=== PATIENT | female | born 1940 | race Caucasian/White ===

== ENCOUNTER 2017-05-07 13:15 | Inpatient (IN) | payer MEDICARE, BC ==
[2017-05-07] VITALS (14 sets, daily range): BP systolic 140–141; BP diastolic 66–78; PULSE 47–52; RESP 13–22; TEMP 98.1
[~2017-05-07] VITALS: Ht 152.4 cm; Wt 105.0 kg
[~2017-05-07 13:15] MED LIST: HYDR-3025 PO; LEVOTHYROXINE PO; NAPR-685 PO; VITAMIN B12; VITAMIN D3
[2017-05-07] MEDS ORDERED: ONDANSETRON 4 MG INJ IV STA (13:24)
[2017-05-07 13:30] LABS: ABNORMAL IP MESSAGE 1; BASOPHILS % 0.2 % (0.0-2.0); HEMATOCRIT 33.7 % (37.0-47.0); HEMOGLOBIN 10.4 g/dl (12.0-16.0); LYMPHOCYTES # 0.5 10^3/ul (0.8-2.9); LYMPHOCYTES % 4.6 % (15.0-51.0); MEAN CORPUSCULAR HGB CONC 30.9 g/dl (32.0-37.0); MEAN CORPUSCULAR VOLUME 90.6 fl (82.0-101.0); MEAN PLATELET VOLUME 12.5 fl (7.4-10.4); MONOCYTE # 0.6 10^3/ul (0.3-0.9); MONOCYTES % 5.4 % (0.0-11.0); NEUTROPHIL # 9.3 10^3/ul (1.6-7.5); NEUTROPHILS % 89.3 % (39.0-77.0); NUCLEATED RED BLOOD CELLS # 0.1 10^3/ul (0.0-0.0); NUCLEATED RED BLOOD CELLS% 0.5 /100WBC (0.0-0.0); PLATELET COUNT 100 10^3/UL (140-415); RED BLOOD COUNT 3.72 10^6/ul (4.20-5.40); RED CELL DISTRIBUTION WIDTH 16.7 % (11.5-14.5); WHITE BLOOD COUNT 10.4 10^3/ul (4.8-10.8)
[2017-05-07 13:32] LABS: POSITIVE DIFF @See below
[2017-05-07] MEDS ORDERED: CARB1TAB42 PO (13:39)
[2017-05-07] MEDS ORDERED: PRAM0.5T PO (13:40)
[2017-05-07] MEDS ORDERED: ACET-141 PO (13:41)
[2017-05-07 13:42] LABS: ANION GAP 13 (8-16); BLOOD UREA NITROGEN 81 mg/dl (7-20); CALCIUM 8.7 mg/dl (8.4-10.2); CARBON DIOXIDE 20 mmol/L (21-31); CHLORIDE 108 mmol/L (97-110); CREATININE 1.47 mg/dl (0.44-1.00); GLUCOSE 123 mg/dl (70-220); SODIUM 135 mmol/L (135-144)
[2017-05-07] MEDS ORDERED: FURO40TA4 PO (13:42)
[2017-05-07] MEDS ORDERED: HYDR-906 PO (13:42)
--- NOTE | 2017-05-07 13:42 | RADRPT ---
PROCEDURE: CT Brain without contrast. CLINICAL INDICATION: Neurologic deficit TECHNIQUE: A CT of the brain was performed on multidetector high-resolution CT scanner utilizing a xial sections from the skull base through the vertex without contrast. One or more of the following dose reduction techniques were used: Automated exposure control, Adjustment of the mA and/or kV acc ording to patient size, and/or use of iterative reconstruction technique. DOSE: CTDI = 45 mGy and the DLP = 720 mGy-cm. COMPARISON: Head CT 01/12/2014 FINDINGS: Severe motion degraded exam. No large acute intracranial hemorrhage or midline shift. The ventricles are normal in size for age. Vascular calcifications. Hyperdensity at anterior third v entricle is unchanged from prior. No significant opacification of the visualized paranasal sinuses or mastoids. IMPRESSION: Severe motion degraded exam. No large acute intracranial hemorrhage or midline shift. Vascular calcifications. Consider repeat imaging when the patient is more stable. RPTAT: AA .Martín Singh MD, MD Date Time Electronically viewed and signed by .Martín Singh MD, on 05/07/2017 13:42 .T/
[2017-05-07] MEDS ORDERED: POTA20TA96 PO (13:43)
--- NOTE | 2017-05-07 13:43 | RADRPT ---
PROCEDURE: XR Chest. CLINICAL INDICATION: Dyspnea . Possible stroke TECHNIQUE: Single frontal chest x-ray. COMPARISON: 01/12/2014 FINDINGS: There is elevation of the right hemidiaphragm with mild right basilar atelectasis. Remainder of the lungs are clear. . Cardiomediastinal silhouette is stable.. Right-sided rotation artifact limits ev aluation.. The osseous structures are intact. IMPRESSION: No acute cardiopulmonary disease. Elevated right hemidiaphragm with right basilar atelectasis. RPTAT: KK .Brain Zelaya MD, MD Date Time Electronically viewed and signed by .Brain Zelaya MD, MD on 05/07/2017 13:43 .L/
[2017-05-07] MEDS ORDERED: MYL80 PO (13:44)
[2017-05-07] MEDS ORDERED: ALBU18HF INHALATION (13:48)
[2017-05-07] MEDS ORDERED: LEVO137T3 PO (13:48)
[2017-05-07] MEDS: DOPamine-D5W 1.6 MG/ML 250 ML IV SCH (13:49)
[2017-05-07 13:50] LABS: POTASSIUM 6.2 mmol/L (3.5-5.1)
[2017-05-07] MEDS ORDERED: METO5TAB65 PO (13:53)
[2017-05-07] MEDS ORDERED: DICL100G37 TOP (13:53)
[2017-05-07 13:55] LABS: B-TYPE NATRIURETIC PEPTIDE 881 PG/ML (0-450)
[2017-05-07 13:57] LABS: TROPONIN-I < 0.012 ng/ml (0.00-0.12)
[2017-05-07] MEDS ORDERED: FUROSEMIDE 40 MG INJ IV ONE (15:00)
[2017-05-07 15:26] LABS: AADO2 Arterial 55.4 mmHg (7.0-24.0); Allen Test ACCEPTAB; Arterial Base Excess -6.5 mmol/L (-3.0-3); Arterial COHb 0.7 % (0.0-3.0); Arterial Fraction of Oxyhgb 95.8 % (93.0-99.0); Arterial HCO3 21.7 mmol/L (22.0-26.0); Arterial MetHb 0 % (0.0-1.5); Arterial Total Hemglobin 14.3 g/dl (12.0-18.0); MODE NASAL CANNULA
[2017-05-07] MEDS ORDERED: ASPIRIN 81 MG TAB PO ONE (15:30)
[2017-05-07 16:36] LABS: ADD UMIC NO; UR AMORPHOUS CRYSTAL MODERATE /HPF (NONE SEEN); UR ASCORBIC ACID NEGATIVE (NEGATIVE); UR BILIRUBIN (Dip) NEGATIVE (NEGATIVE); UR BLOOD (Dip) NEGATIVE (NEGATIVE); UR CLARITY SLIGHTLY CLOUDY (CLEAR); UR COLOR STRAW (YELLOW); UR GLUCOSE (Dip) NEGATIVE (NEGATIVE); UR KETONES (Dip) NEGATIVE (NEGATIVE); UR LEUKOCYTE ESTERASE (Dip) NEGATIVE Leu/ul (NEGATIVE); UR NITRITE (Dip) NEGATIVE (NEGATIVE); UR RBC 0 /HPF (0-5); UR SPECIFIC GRAVITY (Dip) 1.005 (1.003-1.030); UR SQUAMOUS EPITHELIAL CELL FEW /HPF (FEW); UR TOTAL PROTEIN (Dip) NEGATIVE (NEGATIVE); UR UROBILINOGEN (Dip) NEGATIVE (NEGATIVE)
[2017-05-07] MEDS ORDERED: morphine 10 MG INJ IM ONE (17:00)
[2017-05-07] MEDS: DEXTROSE 5%-0.45% NACL 1,000 ML IV SCH (17:26)
[2017-05-07] MEDS ORDERED: IPRATROPIUM (NEB) 0.5 MG/2.5 ML AMP NEB PRN (17:30)
[2017-05-07] MEDS ORDERED: ACETAMINOPHEN 650 MG SUPP PR PRN (17:30)
[2017-05-07] MEDS ORDERED: ONDANSETRON 4 MG INJ IV PRN (17:30)
[2017-05-07] MEDS ORDERED: NACL 0.9% 3 ML SYG IV SCH (17:30)
[2017-05-07] MEDS ORDERED: INSULIN REGULAR, HUMAN 100 UNIT/1 ML 3ML VIAL IV STA (17:34)
[2017-05-07] MEDS ORDERED: ALBUTEROL 0.5% (NEB) 2.5 MG/0.5 ML AMP INH STA (17:34)
--- NOTE | 2017-05-07 17:39 | CONS ---
Date/Time of Note Date/Time of Note DATE: 05/07/17 TIME: 17:38 Assessment/Plan Assessment/Plan Additional Assessment/Plan ASSESSMENT: 1. Severe symptomatic bradycardia 2. GUY on possible CKD due to Prerenal azotemia 3. Possible CKD 4. Acute hyperkalemia due to GUY 5.AMs due to acute metabolic encephalopathy and bradycardia 6. H.o CHF 7. H/o HTN 8. h/o hypothyroidism 9/ H/o parkinsonism Plan: pt received lasix IV in ED, pt can not take PO now so I will give insulin + Dextrose and Breathing Treatment with albuterol for treatment for hyperkalemia Urine studies including Urine sodium, Prot/cr ration, urine eosinophils, Urine uric acid CK total, Uric acid has been ordered with AM labs Renal Us has been ordered for CKD and to rule out hydronephrosis IV abx Vancomycin and levaquin, renally dose all abx pt is admitted to ICU with dopamine gtt, Cardiology consult and ECHO has been ordered Thanks for consultation,we will continue to follow up . Consultation Date/Type/Reason Admit Date/Time May Date of Consultation: May 07, 2017 Type of Consultation: NEPHROLOGY Reason for Consultation acute Hyperkalemia, acute Kidney injury Referring Provider: OSMANI PARK MD Hx of Present Illness 77 F with PMhx of parkinsonism, HTN who was lotus in by ambulance for decresed level of consciousness and Aphasia. pt is noted to have hyperkalemia with K 6.2, BUN 82 Cr 1.4 and renal has been consulted for GUY, Hyperkalemia. pt is getting admitted for work up of AMS, stroke. Subjective hx not possible: pt non-verbal Past Medical History Medical History: congestive heart failure, high cholesterol, hypertension, hypothyroid, other (COPD. arthritis ) Past Surgical History Past Surgical Hx: other (Unknow, no family member is available ) Family History Significant Family History: other (unknown ) Social History Alcohol Use: none Smoking Status: Never smoker Drug Use: none Exam/Review of Systems Vital Signs Vitals Vital Signs Date Time Temp Pulse Resp B/P Pulse Ox O2 Delivery O2 Flow Rate FiO2 05/07/17 14:43 58 195/64 05/07/17 13:30 Nasal Cannula 3 05/07/17 13:15 98.9 15 88 Exam Constitutional: alert, other (withdraws to pain, speech garbled ) Psych: no complaints Head: normocephalic Eyes: nl conjunctiva ENMT: nl external ears & nose Neck: non-tender, supple Respiratory: clear to auscultation, diminished breath sounds, normal air movement Cardiovascular: other (bradycardia ), regular rate and rhythm Gastrointestinal: non-tender, soft Musculoskeletal: muscle weakness, nl extremities to inspection, swelling Neurological: other (awake, but speech garbled, not oriented to place and person , gait not assessed ) Results Result Diagram: 05/07/17 1315 05/07/17 1315 Results 24 hrs Laboratory Tests Test 05/07/17 13:15 05/07/17 14:32 05/07/17 15:52 White Blood Count 10.4 Red Blood Count 3.72 L Hemoglobin 10.4 L Hematocrit 33.7 L Mean Corpuscular Volume 90.6 Mean Corpuscular Hemoglobin 28.0 L Mean Corpuscular Hemoglobin Concent 30.9 L Red Cell Distribution Width 16.7 H Platelet Count 100 L Mean Platelet Volume 12.5 H Neutrophils % 89.3 H Lymphocytes % 4.6 L Monocytes % 5.4 Eosinophils % 0.0 Basophils % 0.2 Nucleated Red Blood Cells % 0.5 H Neutrophils # 9.3 H Lymphocytes # 0.5 L Monocytes # 0.6 Eosinophils # 0.0 Basophils # 0.0 Nucleated Red Blood Cells # 0.1 H Sodium Level 135 Potassium Level 6.2 *H Chloride Level 108 Carbon Dioxide Level 20 L Anion Gap 13 Blood Urea Nitrogen 81 H Creatinine 1.47 H Glucose Level 123 Calcium Level 8.7 Troponin I < 0.012 B-Type Natriuretic Peptide 881 H Blood Gas Specimen Source Blood arterial Arterial Blood Date Drawn 05/07/2017 3:05:07 PM Arterial Blood pH (Temp corrected) 7.223 *L Arterial Blood pCO2 (Temp correct) 53.8 H Arterial Blood pO2 (Temp corrected) 95.3 H Arterial Blood HCO3 21.7 L Arterial Blood Base Excess -6.5 L Arterial Blood Oxygen Saturation 96.5 Jewel Test ACCEPTAB Arterial Blood Gas Puncture Site Right Radial Arterial Blood Carboxyhemoglobin 0.7 Arterial Blood Methemoglobin 0 Blood Gas A-a O2 Differential 55.4 H Oxyhemoglobin Percent 95.8 Total Hemoglobin 14.3 Blood Gas Temperature 37.0 Blood Gas Modality NASAL CANNULA FiO2 30.0 Blood Gas Critical Value Read Back DR PRAVEEN Carter Blood Gas Notified Whom JLD Blood Gas Notified Time 05/07/2017 3:25:52 PM Urine Color STRAW Urine Clarity SLIGHTLY CLOUDY A Urine pH 5.0 Urine Specific [place] 1.005 Urine Ketones NEGATIVE Urine Nitrite NEGATIVE Urine Bilirubin NEGATIVE Urine Urobilinogen NEGATIVE Urine Leukocyte Esterase NEGATIVE Urine Microscopic RBC 0 Urine Microscopic WBC 0 Urine Squamous Epithelial Cells FEW Urine Amorphous Crystals MODERATE Urine Hemoglobin NEGATIVE Urine Glucose NEGATIVE Urine Total Protein NEGATIVE Medications Medications Current Medications Dopamine HCl/ Dextrose 250 ml @ 0 mls/hr TITRATE IV Last administered on t 13:49; Admin Dose 16.87 MLS/HR; Start 05/07/17 at 13:30 Dextrose/Sodium Chloride (D5-1/2ns) 1,000 ml @ 70 mls/hr [id number] IV ; Start at 17:26; Status UNV Ondansetron HCl (Zofran Inj) 4 mg Q6H PRN IV NAUSEA AND/OR VOMITING; Start 05/07/17 at 17:30; Status UNV Acetaminophen (Tylenol Supp) 650 mg Q4H PRN [place] PAIN LEVEL 1-3 OR FEVER; Start 05/07/17 at 17:30; Status UNV Morphine Sulfate (morphine) 2 mg Q4H PRN IV PAIN LEVEL 7-10; Start 05/07/17 at 17:30; Status UNV Pantoprazole (Protonix Iv) 40 mg DAILY@06 IV ; Start 05/08/17 at 06:00; Status UNV Enoxaparin Sodium 30 mg 30 mg DAILY SC ; Start 05/08/17 at 09:00; Status UNV Levofloxacin/ Dextrose (Levaquin 500mg/ D5W 100 ml (Pmx)) 100 ml @ 100 mls/hr Q48H IVPB ; Start 05/07/17 at 18:00; Status UNV ENRIQUETA HUNG MD May 07, 2017 17:39
[2017-05-07] MEDS ORDERED: VANCOMYCIN 1.75 GM in NS 500 ML IVPB SCH ×2 (18:00→21:30)
[2017-05-07] MEDS ORDERED: LEVOFLOXACIN 500MG/D5W (PMX) 100 ML IVPB SCH (18:00)
[2017-05-07] MEDS ORDERED: VANCOMYCIN IV PER PHARMACY XX SCH (18:00)
[2017-05-07] MEDS: DEXTROSE 50% 50 ML SYRINGE IV PRN ×2 (19:35→21:56)
--- NOTE | 2017-05-07 19:38 | ERA ---
ER Documentation Chief Complaint Date/Time DATE: 05/07/17 TIME: 19:28 Chief Complaint stoke like symptoms with hr in the 20's, bilateral weepy lower extremities HPI This 77-year-old female was brought in for having episodes of decreased level of consciousness since last night with a heart rate in the 20s. She is brought in by ambulance with Dr. Bonilla is also here at the same time the patient is being brought in. This is her physician states the symptoms started last night and was stroke is in the differential it is less likely than her bradycardia for causing this. She has a history of diastolic heart failure with cardiomyopathy. She is not currently taking any AV edgar blockers. Patient herself has been wheelchair-bound and complains of only leg pain. She also has had some generalized weakness on and off. ROS All systems reviewed and are negative except as per history of present illness. Medications Home Meds Reported Medications Metolazone* (Metolazone*) 5 Mg Tablet, 5 MG PO DAILY, TAB 05/07/17 Diclofenac Sodium* (Voltaren* Gel) 1% -100 Gm Gel, 2 GM TOP TID, #1 TUB 05/07/17 Albuterol Sulfate* (Ventolin HFA*) 18 Gm Hfa.aer.ad, 2 PUFF INHALATION Q6H Y for WHEEZING AND SOB, #1 INHALER 05/07/17 Levothyroxine Sodium* (Levothyroxine Sodium*) 137 Mcg Tablet, 137 MCG PO BEFORE BREAKFAST, #30 TAB 05/07/17 Simethicone* (Mylicon*) 80 Mg Tab, 80 MG PO Q4 Y for DISTENSION/GAS/BLOATING, TAB 05/07/17 Potassium Chloride* (Potassium Chloride*) 20 Meq Tablet.er, 20 MEQ PO DAILY, TAB.SA 05/07/17 Furosemide* (Furosemide*) 40 Mg Tablet, 40 MG PO DAILY, TAB 05/07/17 Hydrocodone/Acetaminophen ([place] 5-325 Tablet) 1 Each Tablet, 1 EACH PO Q6 Y for SEVERE PAIN LEVEL 7-10, TAB 05/07/17 Acetaminophen* (Acetaminophen*) 500 MG Extra Strength Tablet, 1000 MG PO Q4 Y for PAIN, TAB 05/07/17 Pramipexole* (Pramipexole*) 0.5 Mg Tablet, 0.5 MG PO TID, TAB 05/07/17 Carbidopa/Levodopa (Carbidopa-Levo ER 25-100 Tab) 1 Each Tablet.er, 1 EACH PO TID, TAB 05/07/17 Discontinued Reported Medications [Vitamin B12] No Conflict Check 01/12/14 [Vitamin D3] No Conflict Check 01/12/14 Naproxen* (Naproxen*) 375 Mg Tablet, 375 MG PO BID 01/12/14 [Levothyroxine] No Conflict Check, 37 MCG PO AM 01/12/14 Hydrocodone Bit-Acetaminophen* (Vicodin* ES) 7.5-300 Mg Tablet, 1 EACH PO BID 01/12/14 Allergies Allergies: Coded Allergies: No Known Allergy (Unverified , 01/15/14) PMhx/Soc History of Surgery: No (UNKNOWN) Anesthesia Reaction: No Hx Neurological Disorder: No Hx Respiratory Disorders: Yes (COPD) Hx Cardiac Disorders: Yes (DYSLIPIDEMIA, CHF) Hx Psychiatric Problems: No Hx Miscellaneous Medical Probl: Yes (HYPOTHYROID, CHRONIC PAIN) Hx Alcohol Use: No Hx Substance Use: No Hx Tobacco Use: No Smoking Status: Never smoker Physical Exam Vitals Vital Signs Date Time Temp Pulse Resp B/P Pulse Ox O2 Delivery O2 Flow Rate FiO2 05/07/17 19:04 98.1 50 20 161/66 98 Nasal Cannula 2.0 05/07/17 17:30 49 101/64 05/07/17 16:30 55 169/75 05/07/17 14:43 58 195/64 05/07/17 14:10 58 98/53 05/07/17 13:30 Nasal Cannula 3 05/07/17 13:15 98.9 27 15 115/75 88 Physical Exam Const: [] Moderate distress Head: Atraumatic Eyes: Normal Conjunctiva, EOMI, PERRLA ENT: Normal External Ears, Nose and Mouth. Neck: Full range of motion..~Severe JVD bilateral Resp: Decreased bibasilar breath sounds Cardio: Gettler bradycardia, no murmur auscultated Abd: Soft, non tender, non distended. Normal bowel sounds Skin: No petechiae or rashes, erythema of bilateral lower extremities without calor. Back: No midline or flank tenderness Ext: No cyanosis, market bilateral lower extremity edema, 3+ pitting, distal pulses are intact posterior tibial with good capillary refill. Neur: Awake and alert and oriented 3, no focal deficits Psych: Normal Mood and Affect Result Diagram: 05/07/17 1315 05/07/17 1315 Results 24 hrs Laboratory Tests Test 05/07/17 13:15 05/07/17 14:32 05/07/17 15:52 White Blood Count 10.410^3/ul Red Blood Count 3.7210^6/ul Hemoglobin 10.4g/dl Hematocrit 33.7% Mean Corpuscular Volume 90.6fl Mean Corpuscular Hemoglobin 28.0pg Mean Corpuscular Hemoglobin Concent 30.9g/dl Red Cell Distribution Width 16.7% Platelet Count 07434^3/UL Mean Platelet Volume 12.5fl Neutrophils % 89.3% Lymphocytes % 4.6% Monocytes % 5.4% Eosinophils % 0.0% Basophils % 0.2% Nucleated Red Blood Cells % 0.5/100WBC Neutrophils # 9.310^3/ul Lymphocytes # 0.510^3/ul Monocytes # 0.610^3/ul Eosinophils # 0.010^3/ul Basophils # 0.010^3/ul Nucleated Red Blood Cells # 0.110^3/ul Sodium Level 135mmol/L Potassium Level 6.2mmol/L Chloride Level 108mmol/L Carbon Dioxide Level 20mmol/L Anion Gap 13 Blood Urea Nitrogen 81mg/dl Creatinine 1.47mg/dl Glucose Level 123mg/dl Calcium Level 8.7mg/dl Troponin I < 0.012ng/ml B-Type Natriuretic Peptide 881PG/ML Blood Gas Specimen Source Blood arterial Arterial Blood Date Drawn 05/07/2017 3:05:07 PM Arterial Blood pH (Temp corrected) 7.223 Arterial Blood pCO2 (Temp correct) 53.8mmhg Arterial Blood pO2 (Temp corrected) 95.3mmHG Arterial Blood HCO3 21.7mmol/L Arterial Blood Base Excess -6.5mmol/L Arterial Blood Oxygen Saturation 96.5mmHG Jewel Test ACCEPTAB Arterial Blood Gas Puncture Site Right Radial Arterial Blood Carboxyhemoglobin 0.7% Arterial Blood Methemoglobin 0% Blood Gas A-a O2 Differential 55.4mmHg Oxyhemoglobin Percent 95.8% Total Hemoglobin 14.3g/dl Blood Gas Temperature 37.0C Blood Gas Modality NASAL CANNULA FiO2 30.0% Blood Gas Critical Value Read Back DR PRAVEEN Carter Blood Gas Notified Whom JLD Blood Gas Notified Time 05/07/2017 3:25:52 PM Urine Color STRAW Urine Clarity SLIGHTLY CLOUDY Urine pH 5.0 Urine Specific [place] 1.005 Urine Ketones NEGATIVEmg/dL Urine Nitrite NEGATIVEmg/dL Urine Bilirubin NEGATIVEmg/dL Urine Urobilinogen NEGATIVEmg/dL Urine Leukocyte Esterase NEGATIVELeu/ul Urine Microscopic RBC 0/HPF Urine Microscopic WBC 0/HPF Urine Squamous Epithelial Cells FEW/HPF Urine Amorphous Crystals MODERATE/HPF Urine Hemoglobin NEGATIVEmg/dL Urine Glucose NEGATIVEmg/dL Urine Total Protein NEGATIVEmg/dl Phosphorus Level 6.6mg/dl Current Medications Medications (Trade) Dose Ordered Sig/Benjamin Route PRN Reason Start Time Stop Time Status Last Admin Dose Admin Dopamine HCl/ Dextrose 250 ml @ 0 mls/hr TITRATE IV 05/07/17 13:30 05/07/17 13:49 Ondansetron HCl (Zofran Inj) 4 mg ONCE STAT IV 05/07/17 13:24 05/07/17 13:25 DC 05/07/17 13:49 Furosemide (Lasix) 40 mg ONCE ONCE IV 05/07/17 15:00 05/07/17 15:01 DC 05/07/17 14:57 Aspirin (Aspirin) 324 mg ONCE ONCE PO 05/07/17 15:30 05/07/17 15:31 DC Morphine Sulfate 4 mg 4 mg ONCE ONCE IM 05/07/17 17:00 05/07/17 17:01 DC Dextrose/Sodium Chloride (D5-1/2ns) 1,000 ml @ 70 mls/hr [id number] IV 05/07/17 17:26 IV Flush (NS 3 ml) 3 ml PER PROTOCOL IV 05/07/17 17:30 Ondansetron HCl (Zofran Inj) 4 mg Q6H PRN IV NAUSEA AND/OR VOMITING 05/07/17 17:30 Albuterol (Proventil 0.083% (Neb)) 2.5 mg Q2H RESP THERAPY PRN NEB SHORTNESS OF BREATH 05/07/17 17:30 Ipratropium [place] (Atrovent 0.02% (Neb)) 0.5 mg Q2H RESP THERAPY PRN NEB SHORTNESS OF BREATH 05/07/17 17:30 Acetaminophen (Tylenol Supp) 650 mg Q4H PRN [place] PAIN LEVEL 1-3 OR FEVER 05/07/17 17:30 Morphine Sulfate (morphine) 2 mg Q4H PRN IV PAIN LEVEL 7-10 05/07/17 17:30 Pantoprazole (Protonix Iv) 40 mg DAILY@06 IV 05/08/17 06:00 Enoxaparin Sodium (Lovenox) 30 mg DAILY SC 05/08/17 09:00 Vancomycin HCl VANCOMYCIN PER PHARMACY PER PROTOCOL XX 05/07/17 18:00 Levofloxacin/ Dextrose (Levaquin 500mg/ D5W 100 ml (Pmx)) 100 ml @ 100 mls/hr Q48H IVPB 05/07/17 18:00 Albuterol (Proventil 0.5% (Neb)) 15 mg ONCE STAT INH 05/07/17 17:34 05/07/17 17:49 DC Insulin Human Regular (Humulin R) 10 unit ONCE STAT IV 05/07/17 17:34 05/07/17 17:50 DC Dextrose ONCE PRN IV POC BLOOD GLUCOSE <250 MG/DL 05/07/17 18:00 05/08/17 17:59 Vancomycin HCl/ Sodium Chloride (Vancocin/NS) 500 ml @ 125 mls/hr NOW IVPB 05/07/17 18:00 05/07/17 23:59 Procedures/MDM Severe symptomatic bradycardia and 69-year-old female. Although stroke is not completely ruled out CT is negative and patient was given 3 and 25 mg of aspirin. Her condition is likely caused from decreased cardiac output from extremely slow heart rate. She was placed immediately on a dopamine drip. Her leg pain she was given 4 mg of morphine. I also gave her 4 mg of Zofran. She has thrombocytopenia very high BUN. I gave her 40 mg of Lasix to lower her potassium. The reason for her hyperkalemia is that she takes potassium tablets. These should be discontinued. She will be admitted to the ICU and possible placement of pacemaker will occur. She is being admitted to Dr. Bonilla who is seen her at the bedside. EKG interpretation: Severe sinus bradycardia rate of 26, no ST or T-wave changes concerning for acute ischemia, regular [place] per front desk monitor interpretation: Sinus bradycardia rate of 20s followed by sinus bradycardia rate of 50s after dopamine drip titration. No other arrhythmias Chest x-ray interpretation: I see no acute process, no infiltrate, no appointment edema, no pneumothorax, no fractures CT head interpretation: Limited by motion artifact, I see no acute hemorrhage, no mass-effect no midline shift no skull fracture. Care time greater than 35 minutes: This includes treatment of severe symptomatic bradycardia, consideration of invasive procedures, treatment of electrolyte abnormality, use of dopamine drip, multiple visits the patient's bedside to reassess status, chart review, discussion with admitting doctor patient and patient's family. This does not include any billable procedures Departure Diagnosis: Primary Impression: Severe sinus bradycardia Additional Impressions: Symptomatic bradycardia Hyperkalemia Leg pain, bilateral Thrombocytopenia Renal insufficiency Condition: Critical KERWIN MORTON DO May 07, 2017 19:38
[2017-05-07 19:40] LABS: CREATINE KINASE 77 IU/L (23-200)
[2017-05-07 19:53] LABS: CK-MB 8.69 ng/ml (0.0-2.4)
--- NOTE | 2017-05-07 20:07 | RADRPT ---
PROCEDURE: US Lower extremity Venous. CLINICAL INDICATION: Bilateral lower extremity swelling TECHNIQUE: Multiple sonographic images of the bilateral lower extremity deep venous system was obt ained utilizing grayscale, color-flow, compressive sonography and doppler imaging with augmentation. The images were reviewed on a PACS workstation. COMPARISON: None. FINDINGS: There is normal compressibility and flow within the bilateral common femoral, deep femoral, superfic ial femoral and popliteal veins. The deep veins the calf were incompletely visualized. IMPRESSION: No sonographic evidence for deep venous thrombosis in the bilateral lower extremity veins. Physician Nkechi Date Time Electronically viewed and signed by Physician Nkechi on 05/07/2017 19:13 ML/
[2017-05-07 20:10] LABS: TROPONIN-I < 0.012 ng/ml (0.00-0.12)
[2017-05-08] VITALS (72 sets, daily range): BP systolic 89–202; BP diastolic 28–162; PULSE 49–82; RESP 13–26; Ht 152.4 cm; Wt 105.0 kg
[2017-05-08 02:00] LABS: CK-MB 7.97 ng/ml (0.0-2.4); TROPONIN-I 0.012 ng/ml (0.00-0.12)
--- NOTE | 2017-05-08 04:41 | HP ---
DATE OF ADMISSION: 05/07/2017 HISTORY OF PRESENT ILLNESS: The patient is a 77-year-old female with history of Parkinson disease, COPD, arthritis, hypothyroidism and hyperlipidemia. The patient lives at home. The patient is also with decreased mobility. The patient was noted to have slurred speech, unable to express herself b y a home health nurse that saw the patient. The patient was speaking and eating without any problem s at the baseline; however, this morning, patient was noted to have aphasia and slurred speech and w as not able to speak in clear sentences and had a hard time finding of the right words. The patient was also noted to be bradycardic with heart rate being in the 20s; however, stable BP and patient's home health nurse called 911 and patient was brought for evaluation to the emergency room. In the emergency room, patient underwent a CT of the brain which revealed no large acute intracranial hemor rhage or midline shift or vascular calcification; however, this is a severely motion degraded exam. The patient underwent a chest x-ray which does not reveal any acute cardiopulmonary disease; kira de jesus, noted elevated right hemidiaphragm with right bibasilar atelectasis. The patient was given aspir in and Lasix. The patient was noted to have elevated potassium of 6.2, BUN is 81, creatinine 1.47. Urinalysis is negative for any urinary tract infection; however, patient had bilateral redness over the extremities and edema. The patient continued to have further evaluation in the emergency room, and patient will be admitted for further evaluation and management to telemetry floor. PAST MEDICAL HISTORY: Per HPI. PAST SURGICAL HISTORY: Unable to obtain due to patient's condition. FAMILY HISTORY: Noncontributory. SOCIAL HISTORY: The patient lives at home with home health care services daily. Unable to obtain o ther history. ALLERGIES: NO KNOWN ALLERGIES. HOME MEDICATIONS: Reviewed. 1. Tylenol. 2. Albuterol. 3. Carbidopa/levodopa. 4. Voltaren gel. 5. Lasix. 6. [place]. 7. Levothyroxine. 8. Metolazone. 9. Potassium chloride. 10. Pramipexole. 11. Simethicone. REVIEW OF SYSTEMS: A 12-point review of systems is negative unless mentioned in the HPI. PHYSICAL ASSESSMENT: GENERAL: A well-developed, obese female, currently is lethargic, but arousable. VITAL SIGNS: Temperature is 98.9, pulse is 58, blood pressure is 98/53, respiratory rate 15, oxygen saturation 96% on 2 liters nasal cannula. HEENT: Head is atraumatic, normocephalic. Pupils equal, round, reactive to light and accommodation . Oral mucosa is pink, dry. NECK: Supple, no cervical lymphadenopathy, no thyromegaly. LUNGS: Slightly diminished at the bases. Clear in the upper lobes. No rhonchi or wheezes noted. CARDIOVASCULAR: Normal S1, S2. The patient is slightly bradycardic. No murmurs, gallops, clicks, rubs noted. ABDOMEN: Protuberant, soft, nondistended, nontender. Bowel sounds present. EXTREMITIES: Edematous with bilateral rash and erythema. SKIN: There is no rash or petechiae noted. NEUROLOGIC: The patient is awake, alert to name, with expressive aphasia. Moves all extremities. LABORATORY DATA ON ADMISSION: CBC: White blood cells 10.4, hemoglobin 10.4, hematocrit 33.7, plate lets 100. Chemistry: Sodium is 135, potassium 6.2, chloride 108, carbon dioxide 20, anion gap 13, BUN is 81, creatinine 1.47, glucose 123. Troponin less than 0.012. Calcium 8.7. BNP is 881. ASSESSMENT AND PLAN: 1. Expressive aphasia, rule out acute stroke. We will obtain MRI of the brain. Dr. Govea was asked to see patient in neurology consultation. 2. Acute kidney injury with hyperkalemia. Will ask Dr. Cordoba to see patient in nephrology consulta tion. Continue IV fluids. Monitor electrolytes. 3. Acute respiratory insufficiency. Will continue breathing treatment and oxygen supplementation. 4. Chronic obstructive pulmonary disease. 5. History of hypothyroidism. We obtain patient's TSH and T4. Continue levothyroxine. 6. Possible bilateral lower extremity cellulitis. Will start renally dosed vancomycin and Levaquin . Dr. Stephens is to see patient in infectious disease consultation. 7. History of peripheral vascular disease with history of vascular interventions. Will continue Lo venox for deep venous thrombosis prophylaxis, also obtain bilateral venous Doppler to rule out DVT. 8. History of Parkinson disease. 9. History of osteoarthritis. 10. History of hyperlipidemia. 11. Start Pepcid for peptic ulcer disease prophylaxis. Further recommendations based on clinical course. Plan of care discussed with Dr. Park. Dictated By: ABI GARCIA ETL APPLICATION DEVELOPER for OSMANI PARK MD SR/NTS Conf#: [id number] DID#: [id number]
[2017-05-08] MEDS: DOPamine-D5W 1.6 MG/ML 250 ML IV SCH (05:05)
[2017-05-08 05:18] LABS: ABNORMAL IP MESSAGE 1; BASOPHILS % 0.3 % (0.0-2.0); HEMATOCRIT 36.5 % (37.0-47.0); LYMPHOCYTES # 0.4 10^3/ul (0.8-2.9); LYMPHOCYTES % 3.6 % (15.0-51.0); MEAN CORPUSCULAR HEMOGLOBIN 26.8 pg (29.0-33.0); MEAN CORPUSCULAR HGB CONC 30.1 g/dl (32.0-37.0); MEAN CORPUSCULAR VOLUME 88.8 fl (82.0-101.0); MEAN PLATELET VOLUME 11.9 fl (7.4-10.4); MONOCYTE # 0.5 10^3/ul (0.3-0.9); MONOCYTES % 4.4 % (0.0-11.0); NEUTROPHIL # 10.4 10^3/ul (1.6-7.5); NUCLEATED RED BLOOD CELLS # 0.1 10^3/ul (0.0-0.0); NUCLEATED RED BLOOD CELLS% 0.5 /100WBC (0.0-0.0); PLATELET COUNT 141 10^3/UL (140-415); RED BLOOD COUNT 4.11 10^6/ul (4.20-5.40); RED CELL DISTRIBUTION WIDTH 16.6 % (11.5-14.5); WHITE BLOOD COUNT 11.4 10^3/ul (4.8-10.8)
[2017-05-08 05:27] LABS: NEUTROPHILS % 90.7 % (39.0-77.0); POSITIVE DIFF @See below
[2017-05-08 05:37] LABS: ALBUMIN 3.4 g/dl (3.3-4.9); ALBUMIN/GLOBULIN RATIO 1.13; BILIRUBIN,INDIRECT 0.4 mg/dl (0-1.1); BILIRUBIN,TOTAL 0.4 mg/dl (0.2-1.3); CALCIUM 8.4 mg/dl (8.4-10.2); CREATININE 1.26 mg/dl (0.44-1.00); POTASSIUM 5.1 mmol/L (3.5-5.1); TOTAL PROTEIN 6.4 g/dl (6.1-8.1)
[2017-05-08] MEDS ORDERED: PANTOPRAZOLE 40 MG INJ IV SCH (06:00)
[2017-05-08] MEDS: DEXTROSE 5%-0.45% NACL 1,000 ML IV SCH ×2 (08:05→23:29)
--- NOTE | 2017-05-08 08:44 | RADRPT ---
PROCEDURE: Renal US. CLINICAL INDICATION: Renal dysfunction. TECHNIQUE: Multiple sonographic images of the kidneys and urinary bladder were obtained. The imag es were reviewed on a PACS workstation. COMPARISON: No prior studies are available for comparison. FINDINGS: The right kidney measures 11.4 cm. The left kidney is not well seen There is no right renal mass, hydronephrosis, or calculus. Right renal parenchymal thickness and ech ogenicity is normal. The right perirenal region is normal with no fluid collection or mass. There is a Cabrera catheter in the urinary bladder. IMPRESSION: 1. Grossly normal right kidney. 2. Left kidney not well seen. 3. Cabrera catheter in the bladder. RPTAT: QQ .Rei Holder MD, MD Date Time Electronically viewed and signed by .Rei Holder MD, on 05/08/2017 08:44 .R/
[2017-05-08] MEDS: ENOXAPARIN 30 MG/0.3 ML SYG SC SCH (09:21)
--- NOTE | 2017-05-08 09:29 | RADRPT ---
Vent Rate: 54 bpm RR Interval: 0 msec SC Interval: 174 msec QRS Duration: 112 msec QT Interval: 412 msec QTC Interval: 390 msec P-R-T [place]: 27 - 0 - 47 degrees Sinus bradycardia Incomplete right bundle branch block Borderline ECG Electronically Signed By: Mario Neumann [id number]
--- NOTE | 2017-05-08 10:52 | CONS ---
Date/Time of Note Date/Time of Note DATE: 05/08/17 TIME: 10:44 Assessment/Plan Assessment/Plan Chief Complaint/Hosp Course 77 year old female with CHF, HTN, HLD, Parkinson's, COPD, arthritis admitted with aphasia, bradycardia and hyperkalemia undergoing further w/u admitted to the ICU. Recommendations: CVA work up to include MRI Brain and MRA Head/Neck without contrast ECHO with a bubble study ASA 81 mg daily (if unable to pass swallow recommend ASA 300 mg ND at this time may switch after she has an NGT/ passed swallow) check FLP, HBA1C to optimize risk factors recommend inquiring whether patient is compliant with her Parkinson's medications at home, would recommend NGT if she fails swallow to continue administering Parkinson's medication for risk of developing Neuroleptic Malignant Syndrome nephrology following to adjust electrolytes, ID to be consulted for LE cellulitis maintain normotensive, afebrile, euglycemic DVT ppx Speech evaluation will follow Problems: Consultation Date/Type/Reason Admit Date/Time May Date of Consultation: May 08, 2017 Type of Consultation: Neurology Reason for Consultation aphasia Referring Provider: ABI GARCIA Hx of Present Illness 77 year old female with history of advanced Parkinson's disease, COPD, arthritis admitted with slurred speech and aphasia noted by [employer]. Unclear time of onset, on arrival patient was notably bradycardic 20's. CTH showed no acute process, stroke code was not initiated on her arrival. Labs significant for hyperkalemia K: 6.2 admitted to the ICU for further work up. Pending further brain imaging, she remains aphasic. Psychological: no complaints Past Medical History Medical History: congestive heart failure, high cholesterol, hypertension, hypothyroid, other (COPD. arthritis ) Past Surgical History Past Surgical Hx: other (Unknow, no family member is available ) Social History Alcohol Use: none Smoking Status: Never smoker Drug Use: none Exam/Review of Systems Vital Signs Vitals Vital Signs Date Time Temp Pulse Resp B/P Pulse Ox O2 Delivery O2 Flow Rate FiO2 05/08/17 08:00 53 05/08/17 08:00 97.4 23 91/47 94 Nasal Cannula 2.0 Intake and Output 05/07/17 05/07/17 05/08/17 15:00 23:00 07:00 Intake Total 447.48 ml 694.985 ml Output Total 800 ml 370 ml Balance -352.52 ml 324.985 ml Exam arousable awake and alert tracks examiner non-verbal, not following commands global aphasia present CN: II-XII grossly intact she blinks to threat equally b/l Motor: w/d in all extremities in the plane of the bed Coord poor cooperation Results Result Diagram: 05/08/17 0437 05/08/17 0437 Results 24 hrs Laboratory Tests Test 05/07/17 13:15 05/07/17 14:32 05/07/17 15:52 05/07/17 19:10 White Blood Count 10.4 Red Blood Count 3.72 L Hemoglobin 10.4 L Hematocrit 33.7 L Mean Corpuscular Volume 90.6 Mean Corpuscular Hemoglobin 28.0 L Mean Corpuscular Hemoglobin Concent 30.9 L Red Cell Distribution Width 16.7 H Platelet Count 100 L Mean Platelet Volume 12.5 H Neutrophils % 89.3 H Lymphocytes % 4.6 L Monocytes % 5.4 Eosinophils % 0.0 Basophils % 0.2 Nucleated Red Blood Cells % 0.5 H Neutrophils # 9.3 H Lymphocytes # 0.5 L Monocytes # 0.6 Eosinophils # 0.0 Basophils # 0.0 Nucleated Red Blood Cells # 0.1 H Sodium Level 135 Potassium Level 6.2 *H Chloride Level 108 Carbon Dioxide Level 20 L Anion Gap 13 Blood Urea Nitrogen 81 H Creatinine 1.47 H Glucose Level 123 Calcium Level 8.7 Troponin I < 0.012 < 0.012 B-Type Natriuretic Peptide 881 H Blood Gas Specimen Source Blood arterial Arterial Blood Date Drawn 05/07/2017 3:05:07 PM Arterial Blood pH (Temp corrected) 7.223 *L Arterial Blood pCO2 (Temp correct) 53.8 H Arterial Blood pO2 (Temp corrected) 95.3 H Arterial Blood HCO3 21.7 L Arterial Blood Base Excess -6.5 L Arterial Blood Oxygen Saturation 96.5 Jewel Test ACCEPTAB Arterial Blood Gas Puncture Site Right Radial Arterial Blood Carboxyhemoglobin 0.7 Arterial Blood Methemoglobin 0 Blood Gas A-a O2 Differential 55.4 H Oxyhemoglobin Percent 95.8 Total Hemoglobin 14.3 Blood Gas Temperature 37.0 Blood Gas Modality NASAL CANNULA FiO2 30.0 Blood Gas Critical Value Read Back DR PRAVEEN Carter Blood Gas Notified Whom VITA Blood Gas Notified Time 05/07/2017 3:25:52 PM Urine Color STRAW Urine Clarity SLIGHTLY CLOUDY A Urine pH 5.0 Urine Specific [place] 1.005 Urine Ketones NEGATIVE Urine Nitrite NEGATIVE Urine Bilirubin NEGATIVE Urine Urobilinogen NEGATIVE Urine Leukocyte Esterase NEGATIVE Urine Microscopic RBC 0 Urine Microscopic WBC 0 Urine Squamous Epithelial Cells FEW Urine Amorphous Crystals MODERATE Urine Hemoglobin NEGATIVE Urine Glucose NEGATIVE Urine Total Protein NEGATIVE Phosphorus Level 6.6 H Creatine Kinase 77 Creatine Kinase Index 11.3 Creatinine Kinase MB (Mass) 8.69 H Test 05/07/17 21:42 05/08/17 00:59 05/08/17 04:37 05/08/17 05:08 Bedside Glucose 65 L 118 Potassium Level 4.6 5.1 Creatine Kinase 54 46 Creatine Kinase Index 14.8 Creatinine Kinase MB (Mass) 7.97 H Troponin I 0.012 White Blood Count 11.4 H Red Blood Count 4.11 L Hemoglobin 11.0 L Hematocrit 36.5 L Mean Corpuscular Volume 88.8 Mean Corpuscular Hemoglobin 26.8 L Mean Corpuscular Hemoglobin Concent 30.1 L Red Cell Distribution Width 16.6 H Platelet Count 141 # Mean Platelet Volume 11.9 H Neutrophils % 90.7 H Lymphocytes % 3.6 L Monocytes % 4.4 Eosinophils % 0.0 Basophils % 0.3 Nucleated Red Blood Cells % 0.5 H Neutrophils # 10.4 H Lymphocytes # 0.4 L Monocytes # 0.5 Eosinophils # 0.0 Basophils # 0.0 Nucleated Red Blood Cells # 0.1 H Sodium Level 141 Chloride Level 108 Carbon Dioxide Level 23 Anion Gap 15 Blood Urea Nitrogen 70 H Creatinine 1.26 H Glucose Level 116 Uric Acid 8.4 H Calcium Level 8.4 Total Bilirubin 0.4 Direct Bilirubin 0.00 Indirect Bilirubin 0.4 Aspartate Amino Transf (AST/SGOT) 54 H Alanine Aminotransferase (ALT/SGPT) 30 Alkaline Phosphatase 215 H Total Protein 6.4 Albumin 3.4 Globulin 3.00 Albumin/Globulin Ratio 1.13 Medications Medications Current Medications Dopamine HCl/ Dextrose 250 ml @ 0 mls/hr TITRATE IV Last administered on 05:05; Admin Dose 16.875 MLS/HR; Start 05/07/17 at 13:30 Dextrose/Sodium Chloride (D5-1/2ns) 1,000 ml @ 70 mls/hr [id number] IV Last administered on 05/08/17 08:05; Admin Dose 70 MLS/HR; Start 05/07/17 at 17:26 Ondansetron HCl (Zofran Inj) 4 mg Q6H PRN IV NAUSEA AND/OR VOMITING; Start 05/07/17 at 17:30 Acetaminophen (Tylenol Supp) 650 mg Q4H PRN ND PAIN LEVEL 1-3 OR FEVER; Start 05/07/17 at 17:30 Morphine Sulfate (morphine) 2 mg Q4H PRN IV PAIN LEVEL 7-10; Start 05/07/17 at 17:30 Pantoprazole (Protonix Iv) 40 mg DAILY@06 IV Last administered on 05/08/17 05: 06; Admin Dose 40 MG; Start 05/08/17 at 06:00 Enoxaparin Sodium (Lovenox) 30 mg DAILY SC Last administered on 05/08/17 09:21 ; Admin Dose 30 MG; Start 05/08/17 at 09:00 Dextrose (D50w Syringe) ONCE PRN IV POC BLOOD GLUCOSE <250 MG/DL Last administered on 05/07/17 21:56; Admin Dose 100 ML; Start 05/07/17 at 18:00; Stop 05/08/17 at 17:59 Influenza Virus Vaccine 0.5 ml 0.5 ml ONCE ONCE IM* ; Start 05/09/17 at 09:00; Stop 05/09/17 at 09:01 Vancomycin HCl 1.25 gm/Sodium Chloride 250 ml @ 125 mls/hr Q24H IVPB ; Start 05/08/17 at 16:00 Levofloxacin/ Dextrose (Levaquin 500mg/ D5W 100 ml (Pmx)) 100 ml @ 100 mls/hr Q24H IVPB ; Start 05/08/17 at 22:00 PEGGY MERRITT MD May 08, 2017 10:52
[2017-05-08] MEDS ORDERED: ASPIRIN 300 MG SUPP PR SCH (11:00)
--- NOTE | 2017-05-08 11:12 | CONS ---
Date/Time of Note Date/Time of Note DATE: 05/08/17 TIME: 11:12 Consultation Date/Type/Reason Admit Date/Time May 07, 2017 at 15:05 Initial Consult Date 05/08/17 Type of Consultation: id Referring Provider: ABI GARCIA Exam/Review of Systems Vital Signs Vitals Vital Signs Date Time Temp Pulse Resp B/P Pulse Ox O2 Delivery O2 Flow Rate FiO2 05/08/17 08:00 53 05/08/17 08:00 97.4 23 91/47 94 Nasal Cannula 2.0 Intake and Output 05/07/17 05/07/17 05/08/17 15:00 23:00 07:00 Intake Total 447.48 ml 694.985 ml Output Total 800 ml 370 ml Balance -352.52 ml 324.985 ml Results Result Diagram: 05/08/17 0437 05/08/17 0437 Results 24 hrs Laboratory Tests Test 05/07/17 13:15 05/07/17 14:32 05/07/17 15:52 05/07/17 19:10 White Blood Count 10.4 Red Blood Count 3.72 L Hemoglobin 10.4 L Hematocrit 33.7 L Mean Corpuscular Volume 90.6 Mean Corpuscular Hemoglobin 28.0 L Mean Corpuscular Hemoglobin Concent 30.9 L Red Cell Distribution Width 16.7 H Platelet Count 100 L Mean Platelet Volume 12.5 H Neutrophils % 89.3 H Lymphocytes % 4.6 L Monocytes % 5.4 Eosinophils % 0.0 Basophils % 0.2 Nucleated Red Blood Cells % 0.5 H Neutrophils # 9.3 H Lymphocytes # 0.5 L Monocytes # 0.6 Eosinophils # 0.0 Basophils # 0.0 Nucleated Red Blood Cells # 0.1 H Sodium Level 135 Potassium Level 6.2 *H Chloride Level 108 Carbon Dioxide Level 20 L Anion Gap 13 Blood Urea Nitrogen 81 H Creatinine 1.47 H Glucose Level 123 Calcium Level 8.7 Troponin I < 0.012 < 0.012 B-Type Natriuretic Peptide 881 H Blood Gas Specimen Source Blood arterial Arterial Blood Date Drawn 05/07/2017 3:05:07 PM Arterial Blood pH (Temp corrected) 7.223 *L Arterial Blood pCO2 (Temp correct) 53.8 H Arterial Blood pO2 (Temp corrected) 95.3 H Arterial Blood HCO3 21.7 L Arterial Blood Base Excess -6.5 L Arterial Blood Oxygen Saturation 96.5 Jewel Test ACCEPTAB Arterial Blood Gas Puncture Site Right Radial Arterial Blood Carboxyhemoglobin 0.7 Arterial Blood Methemoglobin 0 Blood Gas A-a O2 Differential 55.4 H Oxyhemoglobin Percent 95.8 Total Hemoglobin 14.3 Blood Gas Temperature 37.0 Blood Gas Modality NASAL CANNULA FiO2 30.0 Blood Gas Critical Value Read Back DR PRAVEEN Carter Blood Gas Notified Whom JLD Blood Gas Notified Time 05/07/2017 3:25:52 PM Urine Color STRAW Urine Clarity SLIGHTLY CLOUDY A Urine pH 5.0 Urine Specific [place] 1.005 Urine Ketones NEGATIVE Urine Nitrite NEGATIVE Urine Bilirubin NEGATIVE Urine Urobilinogen NEGATIVE Urine Leukocyte Esterase NEGATIVE Urine Microscopic RBC 0 Urine Microscopic WBC 0 Urine Squamous Epithelial Cells FEW Urine Amorphous Crystals MODERATE Urine Hemoglobin NEGATIVE Urine Glucose NEGATIVE Urine Total Protein NEGATIVE Phosphorus Level 6.6 H Creatine Kinase 77 Creatine Kinase Index 11.3 Creatinine Kinase MB (Mass) 8.69 H Test 05/07/17 21:42 05/08/17 00:59 05/08/17 04:37 05/08/17 05:08 Bedside Glucose 65 L 118 Potassium Level 4.6 5.1 Creatine Kinase 54 46 Creatine Kinase Index 14.8 Creatinine Kinase MB (Mass) 7.97 H Troponin I 0.012 White Blood Count 11.4 H Red Blood Count 4.11 L Hemoglobin 11.0 L Hematocrit 36.5 L Mean Corpuscular Volume 88.8 Mean Corpuscular Hemoglobin 26.8 L Mean Corpuscular Hemoglobin Concent 30.1 L Red Cell Distribution Width 16.6 H Platelet Count 141 # Mean Platelet Volume 11.9 H Neutrophils % 90.7 H Lymphocytes % 3.6 L Monocytes % 4.4 Eosinophils % 0.0 Basophils % 0.3 Nucleated Red Blood Cells % 0.5 H Neutrophils # 10.4 H Lymphocytes # 0.4 L Monocytes # 0.5 Eosinophils # 0.0 Basophils # 0.0 Nucleated Red Blood Cells # 0.1 H Sodium Level 141 Chloride Level 108 Carbon Dioxide Level 23 Anion Gap 15 Blood Urea Nitrogen 70 H Creatinine 1.26 H Glucose Level 116 Uric Acid 8.4 H Calcium Level 8.4 Total Bilirubin 0.4 Direct Bilirubin 0.00 Indirect Bilirubin 0.4 Aspartate Amino Transf (AST/SGOT) 54 H Alanine Aminotransferase (ALT/SGPT) 30 Alkaline Phosphatase 215 H Total Protein 6.4 Albumin 3.4 Globulin 3.00 Albumin/Globulin Ratio 1.13 Medications Medications Current Medications Dopamine HCl/ Dextrose 250 ml @ 0 mls/hr TITRATE IV Last administered on 05:05; Admin Dose 16.875 MLS/HR; Start 05/07/17 at 13:30 Dextrose/Sodium Chloride (D5-1/2ns) 1,000 ml @ 70 mls/hr [id number] IV Last administered on 05/08/17 08:05; Admin Dose 70 MLS/HR; Start 05/07/17 at 17:26 Ondansetron HCl (Zofran Inj) 4 mg Q6H PRN IV NAUSEA AND/OR VOMITING; Start 05/07/17 at 17:30 Acetaminophen (Tylenol Supp) 650 mg Q4H PRN [place] PAIN LEVEL 1-3 OR FEVER; Start 05/07/17 at 17:30 Morphine Sulfate (morphine) 2 mg Q4H PRN IV PAIN LEVEL 7-10; Start 05/07/17 at 17:30 Pantoprazole (Protonix Iv) 40 mg DAILY@06 IV Last administered on 05/08/17 05: 06; Admin Dose 40 MG; Start 05/08/17 at 06:00 Enoxaparin Sodium (Lovenox) 30 mg DAILY SC Last administered on 05/08/17 09:21 ; Admin Dose 30 MG; Start 05/08/17 at 09:00 Dextrose (D50w Syringe) ONCE PRN IV POC BLOOD GLUCOSE <250 MG/DL Last administered on 05/07/17 21:56; Admin Dose 100 ML; Start 05/07/17 at 18:00; Stop 05/08/17 at 17:59 Influenza Virus Vaccine 0.5 ml 0.5 ml ONCE ONCE IM* ; Start 05/09/17 at 09:00; Stop 05/09/17 at 09:01 Vancomycin HCl 1.25 gm/Sodium Chloride 250 ml @ 125 mls/hr Q24H IVPB ; Start 05/08/17 at 16:00 Levofloxacin/ Dextrose (Levaquin 500mg/ D5W 100 ml (Pmx)) 100 ml @ 100 mls/hr Q24H IVPB ; Start 05/08/17 at 22:00 Aspirin (Aspirin) 300 mg DAILY DE ; Start 05/08/17 at 11:00; Status UNV ISMAIL-ZADE,[employer] May 08, 2017 11:12
[2017-05-08] MEDS ORDERED: LIDOCAINE 1% (MPF) 5 ML VIAL SC ONE (11:30)
[2017-05-08] MEDS ORDERED: ASPIRIN 325 MG TAB NGT SCH (12:30)
--- NOTE | 2017-05-08 13:48 | PN ---
Date/Time of Note Date/Time of Note DATE: 05/08/17 TIME: 13:48 Assessment/Plan Lines/Catheters IV Catheter Type (from Nrs): Peripheral IV Urinary Cath still in place: Yes Exam/Review of Systems Vital Signs Vitals Vital Signs Date Time Temp Pulse Resp B/P Pulse Ox O2 Delivery O2 Flow Rate FiO2 05/08/17 12:00 67 05/08/17 11:00 20 98/43 95 Nasal Cannula 05/08/17 08:00 97.4 2.0 Intake and Output 05/07/17 05/07/17 05/08/17 15:00 23:00 07:00 Intake Total 447.48 ml 694.985 ml Output Total 800 ml 370 ml Balance -352.52 ml 324.985 ml Results Result Diagram: 05/08/17 0437 05/08/17 0437 Results 24 hrs Laboratory Tests Test 05/07/17 14:32 05/07/17 15:52 05/07/17 19:10 05/07/17 21:42 Blood Gas Specimen Source Blood arterial Arterial Blood Date Drawn 05/07/2017 3:05:07 PM Arterial Blood pH (Temp corrected) 7.223 *L Arterial Blood pCO2 (Temp correct) 53.8 H Arterial Blood pO2 (Temp corrected) 95.3 H Arterial Blood HCO3 21.7 L Arterial Blood Base Excess -6.5 L Arterial Blood Oxygen Saturation 96.5 Jewel Test ACCEPTAB Arterial Blood Gas Puncture Site Right Radial Arterial Blood Carboxyhemoglobin 0.7 Arterial Blood Methemoglobin 0 Blood Gas A-a O2 Differential 55.4 H Oxyhemoglobin Percent 95.8 Total Hemoglobin 14.3 Blood Gas Temperature 37.0 Blood Gas Modality NASAL CANNULA FiO2 30.0 Blood Gas Critical Value Read Back DR PRAVEEN Carter Blood Gas Notified Whom JLD Blood Gas Notified Time 05/07/2017 3:25:52 PM Urine Color STRAW Urine Clarity SLIGHTLY CLOUDY A Urine pH 5.0 Urine Specific [place] 1.005 Urine Ketones NEGATIVE Urine Nitrite NEGATIVE Urine Bilirubin NEGATIVE Urine Urobilinogen NEGATIVE Urine Leukocyte Esterase NEGATIVE Urine Microscopic RBC 0 Urine Microscopic WBC 0 Urine Squamous Epithelial Cells FEW Urine Amorphous Crystals MODERATE Urine Hemoglobin NEGATIVE Urine Glucose NEGATIVE Urine Total Protein NEGATIVE Phosphorus Level 6.6 H Creatine Kinase 77 Creatine Kinase Index 11.3 Creatinine Kinase MB (Mass) 8.69 H Troponin I < 0.012 Bedside Glucose 65 L Test 05/08/17 00:59 05/08/17 04:37 05/08/17 05:08 Potassium Level 4.6 5.1 Creatine Kinase 54 46 Creatine Kinase Index 14.8 Creatinine Kinase MB (Mass) 7.97 H Troponin I 0.012 White Blood Count 11.4 H Red Blood Count 4.11 L Hemoglobin 11.0 L Hematocrit 36.5 L Mean Corpuscular Volume 88.8 Mean Corpuscular Hemoglobin 26.8 L Mean Corpuscular Hemoglobin Concent 30.1 L Red Cell Distribution Width 16.6 H Platelet Count 141 # Mean Platelet Volume 11.9 H Neutrophils % 90.7 H Lymphocytes % 3.6 L Monocytes % 4.4 Eosinophils % 0.0 Basophils % 0.3 Nucleated Red Blood Cells % 0.5 H Neutrophils # 10.4 H Lymphocytes # 0.4 L Monocytes # 0.5 Eosinophils # 0.0 Basophils # 0.0 Nucleated Red Blood Cells # 0.1 H Sodium Level 141 Chloride Level 108 Carbon Dioxide Level 23 Anion Gap 15 Blood Urea Nitrogen 70 H Creatinine 1.26 H Glucose Level 116 Uric Acid 8.4 H Calcium Level 8.4 Total Bilirubin 0.4 Direct Bilirubin 0.00 Indirect Bilirubin 0.4 Aspartate Amino Transf (AST/SGOT) 54 H Alanine Aminotransferase (ALT/SGPT) 30 Alkaline Phosphatase 215 H Total Protein 6.4 Albumin 3.4 Globulin 3.00 Albumin/Globulin Ratio 1.13 Bedside Glucose 118 Medications Medications Current Medications Dopamine HCl/ Dextrose 250 ml @ 0 mls/hr TITRATE IV Last administered on 05:05; Admin Dose 16.875 MLS/HR; Start 05/07/17 at 13:30 Dextrose/Sodium Chloride (D5-1/2ns) 1,000 ml @ 70 mls/hr [id number] IV Last administered on 05/08/17 08:05; Admin Dose 70 MLS/HR; Start 05/07/17 at 17:26 Ondansetron HCl (Zofran Inj) 4 mg Q6H PRN IV NAUSEA AND/OR VOMITING; Start 05/07/17 at 17:30 Acetaminophen (Tylenol Supp) 650 mg Q4H PRN [place] PAIN LEVEL 1-3 OR FEVER; Start 05/07/17 at 17:30 Morphine Sulfate (morphine) 2 mg Q4H PRN IV PAIN LEVEL 7-10; Start 05/07/17 at 17:30 Pantoprazole (Protonix Iv) 40 mg DAILY@06 IV Last administered on 05/08/17 05: 06; Admin Dose 40 MG; Start 05/08/17 at 06:00 Enoxaparin Sodium (Lovenox) 30 mg DAILY SC Last administered on 05/08/17 09:21 ; Admin Dose 30 MG; Start 05/08/17 at 09:00 Dextrose (D50w Syringe) ONCE PRN IV POC BLOOD GLUCOSE <250 MG/DL Last administered on 05/07/17 21:56; Admin Dose 100 ML; Start 05/07/17 at 18:00; Stop 05/08/17 at 17:59 Influenza Virus Vaccine 0.5 ml 0.5 ml ONCE ONCE IM* ; Start 05/09/17 at 09:00; Stop 05/09/17 at 09:01 Vancomycin HCl 1.25 gm/Sodium Chloride 250 ml @ 125 mls/hr Q24H IVPB ; Start 05/08/17 at 16:00 Levofloxacin/ Dextrose (Levaquin 500mg/ D5W 100 ml (Pmx)) 100 ml @ 100 mls/hr Q24H IVPB ; Start 05/08/17 at 22:00 Miscellaneous Information (* Miscellaneous Pharmacy Order) PATIENT'S OWN MEDICATI... DAILY XX ; Start 05/09/17 at 09:00 Carbidopa/Levodopa (Sinemet (25/ 100)) 1 tab TID NGT ; Start 05/08/17 at 13:00 Levothyroxine Sodium (Synthroid) 137 mcg DAILY@06 NGT ; Start 05/09/17 at 06:00 Aspirin (Aspirin) 81 mg DAILY NGT ; Start 05/09/17 at 09:00 PANCHO SIGALA May 08, 2017 13:48
--- NOTE | 2017-05-08 13:49 | RADRPT ---
PROCEDURE: US guidance for PICC line CLINICAL INDICATION: PICC line placement TECHNIQUE: Multiple real-time images were acquired of the patient's arm utilizing a high resolutio n transducer. This was performed by the PICC line nurse for venous access. COMPARISON: None FINDINGS: Ultrasound guidance for PICC line placement. IMPRESSION: Ultrasound guidance for PICC line placement. RPTAT: AA .Jake Vasquez MD, MD Date Time Electronically viewed and signed by .Jake Vasquez MD, on 05/08/2017 13:49 .S/
--- NOTE | 2017-05-08 13:52 | RADRPT ---
PROCEDURE: XR Chest. CLINICAL INDICATION: Check PICC line position. TECHNIQUE: Single frontal view. COMPARISON: 05/07/2017. FINDINGS: There is a right arm PICC line with the tip in the vein in the chest inferior to the subclavian vein . This may be within the superior vena cava or a collateral vein. There is mild right basilar atelec tasis. The lungs are otherwise clear. The heart size is normal. There is no pleural effusion. There is no pneumothorax. IMPRESSION: 1. Right arm PICC line tip in unsatisfactory position. This should be repositioned. PICC line nurse is aware. 2. Right basilar atelectasis. RPTAT: QQ .Rei Holder MD, MD Date Time Electronically viewed and signed by .Rei Holder MD, on 05/08/2017 13:51 .R/
[2017-05-08] MEDS ORDERED: ASPIRIN 81 MG TAB ONE (14:40)
[2017-05-08] MEDS: CARBIDOPA/LEVODOPA (25/100) TAB NGT SCH ×2 (14:42→20:52)
[2017-05-08] MEDS: ASPIRIN 81 MG TAB NGT SCH (14:42)
--- NOTE | 2017-05-08 16:08 | RADRPT ---
PROCEDURE: XR Chest. CLINICAL INDICATION: PICC line placement TECHNIQUE: Single frontal chest x-ray. COMPARISON: 05/08/2017, 01:05 p.m. FINDINGS: Left-sided PICC line tip is in the SVC. Nasogastric tube tip is in the stomach. There is stable mild cardiomegaly. Moderate pulmonary vascular congestion/edema is noted, slightly increased. No pneumot horax or significant pleural effusion is identified. The osseous structures are unremarkable. IMPRESSION: 1. Left-sided PICC line in good position. 2. Nasogastric tube remains in place. 3. Moderate pulmonary vascular congestion/edema, slightly increased. 4. Stable mild cardiomegaly. RPTAT: AAOO .Guilherme Tineo MD, MD Date Time Electronically viewed and signed by .Guilherme Tineo MD, on 05/08/2017 16:07 .R/
[2017-05-08] MEDS: VANCOMYCIN 1.25 GM in SOD CHLORIDE 0.9% 250 ML IVPB SCH (16:28)
--- NOTE | 2017-05-08 16:57 | CONS ---
Date/Time of Note Date/Time of Note DATE: 05/08/17 TIME: 16:51 Assessment/Plan Assessment/Plan Chief Complaint/Hosp Course 77 F with PMhx of parkinsonism, HTN who was lotus in by ambulance for decresed level of consciousness and Aphasia. pt is noted to have hyperkalemia with K 6.2, BUN 82 Cr 1.4 and renal has been consulted for GUY, Hyperkalemia. pt is getting admitted for work up of AMS, stroke. Problems: Additional Assessment/Plan 1. Severe symptomatic bradycardia 2. GUY on possible CKD due to Prerenal azotemia 3. Possible CKD 4. Acute hyperkalemia due to GUY 5.AMs due to acute metabolic encephalopathy and bradycardia 6. H.o CHF 7. H/o HTN 8. h/o hypothyroidism 9/ H/o parkinsonism Plan: S/p treatment for hyperkalemia in ED- now K 5.1, BP stable BUN/Cr slightly improving with current IVF , Urine studies unremarkable, C/w Pre renal azotemia Uric acid 8.4-start allopurinol 100mg po daily Renal US showed normal right kidney, left kdiney not seen IV abx Vancomycin and levaquin, renally dose all abx will continue to follow up Consultation Date/Type/Reason Admit Date/Time May 07, 2017 at 15:05 Initial Consult Date 05/08/17 Type of Consultation: NEPHROLOGY Referring Provider: ABI GARCIA 24 HR Interval Summary Free Text/Dictation pt admitted to ICU< HR now stable, BP systolic in 90-100s, BUN/Cr slightly improved Exam/Review of Systems Vital Signs Vitals Vital Signs Date Time Temp Pulse Resp B/P Pulse Ox O2 Delivery O2 Flow Rate FiO2 05/08/17 16:15 73 19 96/28 95 05/08/17 15:45 Nasal Cannula 05/08/17 15:15 2.0 05/08/17 12:00 98.0 Intake and Output 05/07/17 05/07/17 05/08/17 15:00 23:00 07:00 Intake Total 447.48 ml 694.985 ml Output Total 800 ml 370 ml Balance -352.52 ml 324.985 ml Exam Constitutional: alert, other (withdraws to pain, speech garbled ) Respiratory: clear to auscultation, diminished breath sounds, normal air movement Cardiovascular: other (bradycardia ), regular rate and rhythm Gastrointestinal: non-tender, soft Musculoskeletal: muscle weakness, nl extremities to inspection, swelling Neurological: other (awake, but speech garbled, not oriented to place and person , gait not assessed ) Results Result Diagram: 05/08/17 0437 05/08/17 0437 Results 24 hrs Laboratory Tests Test 05/07/17 19:10 05/07/17 19:28 05/07/17 21:42 05/08/17 00:59 Creatine Kinase 77 54 Creatine Kinase Index 11.3 14.8 Creatinine Kinase MB (Mass) 8.69 H 7.97 H Troponin I < 0.012 0.012 Bedside Glucose 127 65 L Potassium Level 4.6 Test 05/08/17 04:37 05/08/17 05:08 White Blood Count 11.4 H Red Blood Count 4.11 L Hemoglobin 11.0 L Hematocrit 36.5 L Mean Corpuscular Volume 88.8 Mean Corpuscular Hemoglobin 26.8 L Mean Corpuscular Hemoglobin Concent 30.1 L Red Cell Distribution Width 16.6 H Platelet Count 141 # Mean Platelet Volume 11.9 H Neutrophils % 90.7 H Lymphocytes % 3.6 L Monocytes % 4.4 Eosinophils % 0.0 Basophils % 0.3 Nucleated Red Blood Cells % 0.5 H Neutrophils # 10.4 H Lymphocytes # 0.4 L Monocytes # 0.5 Eosinophils # 0.0 Basophils # 0.0 Nucleated Red Blood Cells # 0.1 H Sodium Level 141 Potassium Level 5.1 Chloride Level 108 Carbon Dioxide Level 23 Anion Gap 15 Blood Urea Nitrogen 70 H Creatinine 1.26 H Glucose Level 116 Uric Acid 8.4 H Calcium Level 8.4 Total Bilirubin 0.4 Direct Bilirubin 0.00 Indirect Bilirubin 0.4 Aspartate Amino Transf (AST/SGOT) 54 H Alanine Aminotransferase (ALT/SGPT) 30 Alkaline Phosphatase 215 H Creatine Kinase 46 Total Protein 6.4 Albumin 3.4 Globulin 3.00 Albumin/Globulin Ratio 1.13 Thyroid Stimulating Hormone (TSH) 1.560 Bedside Glucose 118 Medications Medications Current Medications Dopamine HCl/ Dextrose 250 ml @ 0 mls/hr TITRATE IV Last administered on t 05:05; Admin Dose 16.875 MLS/HR; Start 05/07/17 at 13:30 Dextrose/Sodium Chloride (D5-1/2ns) 1,000 ml @ 70 mls/hr [id number] IV Last administered on 05/08/17 08:05; Admin Dose 70 MLS/HR; Start 05/07/17 at 17:26 Ondansetron HCl (Zofran Inj) 4 mg Q6H PRN IV NAUSEA AND/OR VOMITING; Start 05/07/17 at 17:30 Acetaminophen (Tylenol Supp) 650 mg Q4H PRN TN PAIN LEVEL 1-3 OR FEVER; Start 05/07/17 at 17:30 Morphine Sulfate (morphine) 2 mg Q4H PRN IV PAIN LEVEL 7-10; Start 05/07/17 at 17:30 Pantoprazole (Protonix Iv) 40 mg DAILY@06 IV Last administered on 05/08/17 05: 06; Admin Dose 40 MG; Start 05/08/17 at 06:00 Enoxaparin Sodium (Lovenox) 30 mg DAILY SC Last administered on 05/08/17 09:21 ; Admin Dose 30 MG; Start 05/08/17 at 09:00 Dextrose (D50w Syringe) ONCE PRN IV POC BLOOD GLUCOSE <250 MG/DL Last administered on 05/07/17 21:56; Admin Dose 100 ML; Start 05/07/17 at 18:00; Stop 05/08/17 at 17:59 Influenza Virus Vaccine 0.5 ml 0.5 ml ONCE ONCE IM* ; Start 05/09/17 at 09:00; Stop 05/09/17 at 09:01 Vancomycin HCl 1.25 gm/Sodium Chloride 250 ml @ 125 mls/hr Q24H IVPB Last administered on 05/08/17 16:28; Admin Dose 125 MLS/HR; Start 05/08/17 at 16:00 Levofloxacin/ Dextrose (Levaquin 500mg/ D5W 100 ml (Pmx)) 100 ml @ 100 mls/hr Q24H IVPB ; Start 05/08/17 at 22:00 Miscellaneous Information (* Miscellaneous Pharmacy Order) PATIENT'S OWN MEDICATI... DAILY XX ; Start 05/09/17 at 09:00 Carbidopa/Levodopa (Sinemet (25/ 100)) 1 tab TID NGT Last administered on 14:42; Admin Dose 1 TAB; Start 05/08/17 at 13:00 Levothyroxine Sodium (Synthroid) 137 mcg DAILY@06 NGT ; Start 05/09/17 at 06:00 Aspirin (Aspirin) 81 mg DAILY NGT Last administered on 05/08/17t 14:42; Admin Dose 81 MG; Start 05/09/17 at 09:00 ENRIQUETA HUNG MD May 08, 2017 16:57
--- NOTE | 2017-05-08 17:07 | RADRPT ---
Echocardiogram Report Patient Name: ROLANDO ENNIS Gender: Female Date: 1940 Study Date: 08-May-2017 Engine Emission Technician: Tamika [facility] Location: 118-A Ref. Physician: ABI GARCIA Quality: Adequate Procedures: Transthoracic echocardiogram with complete 2D, M-Mode, and doppler examination. Indications: Evaluate Left Ventricular function. 2D/M Mode Doppler Measurement Value Normal Ranges Measurement Value Normal Ranges LVIDd 2D 4.4 3.5 - 5.6 cm AV Peak Richard 2.1 m/sec LVIDs 2D 2.6 2.1 - 4.1 cm AV Peak PG 17.0 mmHg FS 2D 41.8 % LVOT Peak Richard 1.7 m/sec LVPWd 2D 1.1 0.6 - 1.1 cm LVOT Peak PG 11.0 mmHg IVSd 2D 1.6 0.6 - 1.1 cm MV E Peak Richard 1.5 m/sec IVS/LVPW 2D 1.5 MV A Peak Richard 1.2 m/sec AoR Diam 2D 2.2 2.0 - 3.7 cm MV E/A 1.2 LA/Ao 2D 2 0 - 1 MV Decel Time 246 msec EDV 2D 88.1 cm3 MV E/A 1.2 ESV 2D 17.4 cm3 MR Peak PG 96.0 mmHg LA Dimen 2D 4.3 2.3 - 4.0 cm MR Peak Richard 4.9 m/sec TR Peak Richard 3.3 m/sec TR Peak PG 43.0 mmHg RVSP 51.0 mmHg Findings Left Ventricle: Normal left ventricular systolic function. Normal left ventricular cavity size. Moderate asymmetric septal hypertrophy. Ejection fraction is visually estimated at 65 %. Abnormal Diastolic Function. Right Ventricle: Normal right ventricular size. Normal right ventricular systolic function. Left Atrium: The left atrium is normal in size. Right Atrium: The right atrium is normal in size. Mitral Valve: Mild mitral leaflet calcification. Mild mitral annular calcification. Mild mitral valve regurgitation. Aortic Valve: Normal appearance of the aortic valve. No significant aortic stenosis or insufficiency. Tricuspid Valve: Normal appearance of the tricuspid valve. Estimated peak PA systolic pressure 51 mmHg. There is mild tricuspid regurgitation. Pulmonic Valve: Pulmonic valve not well visualized. There is trace pulmonic regurgitation. Pericardium: Normal pericardium with no significant pericardial effusion. Aorta: Normal aortic root. IVC: Normal size with poor respiratory collapse consistent with elevated right atrial pressure. Conclusions 1.Normal left ventricular systolic function. Normal left ventricular cavity size. Moderate asymmetric septal hypertrophy. Ejection fraction is visually estimated at 60 %. Abnormal Diastolic Function. 2.Mild mitral leaflet calcification. Mild mitral annular calcification. Mild mitral valve regurgitation. 3.Normal appearance of the tricuspid valve. Estimated peak PA systolic pressure 51 mmHg. There is mild tricuspid regurgitation. 4.Pulmonic valve not well visualized. There is trace pulmonic regurgitation. Electronically Signed By: Quentin Mcgregor 08-May-2017 17:06:21 -0700 Patient Name: ROLANDO ENNIS Study Date: 08-May-2017 [id number]
--- NOTE | 2017-05-08 17:54 | CONS ---
DATE OF ADMISSION: 05/07/2017 DATE OF CONSULTATION: 05/08/2017 REASON FOR CONSULTATION: Bradycardia and hypotension. REQUESTING PHYSICIAN: Osmani Park MD. HISTORY OF PRESENT ILLNESS: Mr. Moctezuma is a 77-year-old female with history of Parkinson disease, COPD, degenerative joint disease, hypothyroidism, dyslipidemia who at home was noted to have slurred speech, aphasic and was bradycardic in the 20s. The patient had a home health nurse there and who called 911. She was brought to the emergency department. Upon arrival in the emergency department, initial blood pressures documented at 150/75, pulse documented at 27 with respiratory rate 15, saturating 88%. Patient's labs notable for a sodium of 135, potassium 6.2, creatinine 1.47, BUN of 81. Troponin negative. BNP 881. White blood cell count 10.4, hemoglobin 10.4, platelet count of 100. ABG revealing a pH of 7.223, a PaO2 of 95, pCO2 of 53. UA negative. The patient underwent a venous ultrasound revealing no sonographic evidence of DVT in bilateral lower extremity veins. Head CT revealed no large acute intracranial hemorrhage or midline shift, vascular calcifications. A chest x-ray revealed no acute cardiopulmonary disease, elevated right hemidiaphragm and a renal ultrasound revealed gross normal right kidney. Left kidney not well seen. Cabrera catheter in the bladder. The patient's electrocardiogram revealed rhythm appears to be possibly sinus in nature versus a junctional escape with artifact where it should be in a right bundle branch block pattern and a rate of 26 secondary repolarization abnormalities. Patient was treated in the emergency department initially with Lasix and aspirated with pain control and underwent a head CT as above revealing no significant abnormalities. It does appear that upon nephrology consultation, the patient was treated for hyperkalemia with D50 insulin, breathing treatments with subsequent decrease of potassium and improvement in heart rate to 50. The patient was initially placed on dopamine at this time and remains with heart rate in the 60s on 1 mcg of dopamine with stable blood pressures in the ICU with improved potassium. Patient continues to have a right bundle branch block but somewhat mildly narrowed. PAST MEDICAL HISTORY: As above in HPI. MEDICATIONS CURRENTLY IN HOSPITAL: 1. Synthroid. 2. Levofloxacin. 3. Vancomycin. 4. Sinemet. 5. Aspirin. 6. Lovenox. 7. Protonix. 8. DuoNebs. 9. Dopamine IV. MEDICATIONS PRIOR TO ADMIT: 1. Albuterol. 2. Tylenol. 3. Sinemet. 4. Lasix. 5. Metolazone. 6. Potassium chloride. 7. Simethicone. ALLERGIES: NO KNOWN DRUG ALLERGIES. SOCIAL HISTORY: No tobacco, ETOH or illicit drug use. FAMILY HISTORY: No history of sudden cardiac or early CAD. REVIEW OF SYSTEMS: As above in HPI. CONSTITUTIONAL: No fevers, chills. PULMONARY: No current signs of vascular compromise. GASTROINTESTINAL: Vomiting. GENITOURINARY: Renal failure. PSYCHIATRIC: No documented psychiatric history. NEUROLOGIC: Currently altered mental state, history of Parkinson's. ENDOCRINE: History of hypothyroidism. PHYSICAL EXAMINATION: VITAL SIGNS: Temperature of 97.4, blood pressure most recently 90/43, pulse 56 , respiratory rate of 20, saturation 95%. GENERAL: The patient is sleeping, somewhat difficult to arouse. NECK: JVP of 8 cm of water. CHEST: Upper airway transmitted rhonchorous sounds. HEART: Bradycardic, regular rhythm, normal S1, S2, I/ systolic murmur, nondisplaced PMI. ABDOMEN: Positive bowel sounds, soft. EXTREMITIES: Pitting edema, 1+ pulses bilaterally, posterior tibial. LABORATORY DATA: As above in HPI, with most recent from today. , potassium 5.1 , creatinine 1.26, BUN of 70, glucose 118. Troponin negative x3, white count 11.4, hemoglobin 11.0, platelet count 141. IMAGING STUDIES: As above in HPI. No further imaging studies for my review at this time. ECG: As above in HPI with repeat from today revealing sinus bradycardia, rate 54 with incomplete right bundle block, secondary repolarization abnormalities. IMPRESSION: 1. Bradycardia, severe in the 20s in the setting of hyperkalemia. Continue to follow with resolution of bradycardia after improvement in hyperkalemia. 2. Abnormal electrocardiogram with baseline conduction system disease and right bundle branch block. 3. Hypotension, improving. 4. Hyperkalemia, improved. 5. Renal failure, ongoing. 6. Altered mental state. 7. Anemia with acidosis. 8. Slurred speech secondary to low cardiac output and bradycardia versus transient ischemic attack/stroke. RECOMMENDATIONS: 1. At this time, we would maintain the patient on telemetry monitoring in ICU following rhythm and rate closely. 2. Follow the patient's potassium closely. 3. Check a 2D echo to further assess patient's ejection fraction, wall motion or any major valve abnormalities. 4. We will complete a rule out for myocardial infarction 5. Check a TSH to further assess the patient's current thyroid state in the setting of hypothyroidism, bradycardia. 6. Check a fasting panel for general risk stratification and initiate lipid- lowering medication as necessary. 7. Follow the patient's blood pressure closely and wean off dopamine as possible. No edgar agents at this time. 4. Continue his aspirin for prophylaxis against cardiovascular events. 5. Continue the patient's antibiotics and follow up all culture data. Thank you for allowing me to take part in the care of this patient. I will continue to follow along very closely with you. Further recommendations will be made as the patient progresses through her inpatient hospital clinical course. Dictated By: RON SAMSON/VERONIKA Conf#: [id number] DID#: [id number] CC: OSMANI PARK MD;*EndCC* MTDD
[2017-05-08] MEDS: ALLOPURINOL 100 MG TAB PO SCH (18:10)
--- NOTE | 2017-05-08 18:57 | CONS ---
DATE OF ADMISSION: 05/07/2017 DATE OF CONSULTATION: 05/07/2017 TYPE OF CONSULTATION: Infectious Disease. REASON FOR CONSULTATION: Antibiotic management. HISTORY OF PRESENT ILLNESS: Dipika Moctezuma is a 77-year-old female with a history of Parkinson's disea se and numerous other problems who comes in with apparent expressive aphasia and is being seen for a ntibiotic management. The patient also has bilateral lower extremity cellulitis. Her past problems include: 1. Parkinson disease. 2. Chronic obstructive pulmonary disease. 3. Arthritis. 4. Hypothyroidism. 5. Hyperlipidemia. 6. The patient was noted to have slurred speech, unable to express herself by home health care nurs e who saw the patient. She was brought to the emergency room for evaluation underwent a CT scan of the brain which revealed no large acute intracranial hemorrhages or midline shift or vascular calcif ications; however, it is a severely motion degraded exam. She underwent a chest x-ray which does no t reveal any acute cardiopulmonary disease. She has noted elevated right hemidiaphragm with right b ibasilar atelectasis. The patient was given aspirin and Lasix. 7. Potassium was 6.2. BUN and creatinine was 81/1.47. Urine is negative for urinary tract infecti on. She has bilateral redness over the extremities with edema. PAST MEDICAL HISTORY: Operations as outlined. FAMILY HISTORY: Noncontributory. SOCIAL HISTORY: She does not smoke, drink or abuse drugs. ALLERGIES: NONE TO PENICILLIN, SULFA OR FOODS. MEDICATIONS: Per chart. REVIEW OF SYSTEMS: As per HPI. PHYSICAL EXAMINATION: GENERAL: The patient is a well-developed, obese female who is lethargic but arousable. SKIN: Without generalized rash. HEENT: Within normal limits. NECK: Supple. LYMPH NODES: None palpable. CHEST: Decreased breath sounds at the bases. HEART: Without murmur or gallop. ABDOMEN: Soft, nontender without organosplenomegaly or masses. EXTREMITIES: She is edematous with bilateral rash and erythema. She has bilateral rash and erythem a as noted. She has bilateral lower extremity cellulitis. She was started on Levaquin and vancomyc in. RECTAL AND GENITAL: Deferred. NEUROLOGIC: The patient is aphasic. Moves all extremities. HOSPITAL COURSE: On admission, her white count 10.4, H and H of 10.4 and 33.7, platelet count 100,0 00. BUN and creatinine 81/1.47. White count today is 11.4. BUN and creatinine 70/1.26. I will dictate my findings to Dr. Bonilla. Dictated By: KRISTOPHER TAVARES MD, JD/VERONIKA Conf#: [id number] DID#: [id number]
[2017-05-08] MEDS: LEVOFLOXACIN 500MG/D5W (PMX) 100 ML IVPB SCH (22:00)
[2017-05-08 23:31] LABS: PROTEIN/CREAT RATIO 0.27 RATIO
[2017-05-09] VITALS (31 sets, daily range): BP systolic 82–153; BP diastolic 44–72; PULSE 63–84; RESP 12–29
[2017-05-09 06:09] LABS: ABNORMAL IP MESSAGE 1; BASOPHILS % 0.1 % (0.0-2.0); EOSINOPHILS % 0.1 % (0.0-7.0); HEMATOCRIT 27.2 % (37.0-47.0); HEMOGLOBIN 8.3 g/dl (12.0-16.0); LYMPHOCYTES # 0.5 10^3/ul (0.8-2.9); LYMPHOCYTES % 5.9 % (15.0-51.0); MEAN CORPUSCULAR HEMOGLOBIN 27.1 pg (29.0-33.0); MEAN CORPUSCULAR HGB CONC 30.5 g/dl (32.0-37.0); MEAN CORPUSCULAR VOLUME 88.9 fl (82.0-101.0); MEAN PLATELET VOLUME 11.9 fl (7.4-10.4); MONOCYTE # 0.7 10^3/ul (0.3-0.9); MONOCYTES % 9.2 % (0.0-11.0); NEUTROPHIL # 6.4 10^3/ul (1.6-7.5); NUCLEATED RED BLOOD CELLS # 0.1 10^3/ul (0.0-0.0); NUCLEATED RED BLOOD CELLS% 0.6 /100WBC (0.0-0.0); PLATELET COUNT 106 10^3/UL (140-415); RED BLOOD COUNT 3.06 10^6/ul (4.20-5.40); RED CELL DISTRIBUTION WIDTH 16.7 % (11.5-14.5); WHITE BLOOD COUNT 7.8 10^3/ul (4.8-10.8)
[2017-05-09] MEDS: LEVOTHYROXINE 137 MCG TAB NGT SCH (06:20)
[2017-05-09 06:55] LABS: ALBUMIN 2.8 g/dl (3.3-4.9); ALBUMIN/GLOBULIN RATIO 0.96; BILIRUBIN,INDIRECT 0.4 mg/dl (0-1.1); BILIRUBIN,TOTAL 0.4 mg/dl (0.2-1.3); CALCIUM 7.7 mg/dl (8.4-10.2); CREATININE 1.18 mg/dl (0.44-1.00); MAGNESIUM 3.1 mg/dl (1.7-2.5); POTASSIUM 4.6 mmol/L (3.5-5.1); TOTAL PROTEIN 5.7 g/dl (6.1-8.1)
[2017-05-09 06:58] LABS: CK-MB 6.39 ng/ml (0.0-2.4); TROPONIN-I 0.021 ng/ml (0.00-0.12)
[2017-05-09 07:04] LABS: POSITIVE DIFF @See below
[2017-05-09 08:42] LABS: AADO2 Arterial 65.9 mmHg (7.0-24.0); Allen Test ACCEPTAB; Arterial Base Excess 0 mmol/L (-3.0-3); Arterial COHb 0.3 % (0.0-3.0); Arterial HCO3 24.5 mmol/L (22.0-26.0); Arterial MetHb 0.3 % (0.0-1.5); Arterial Total Hemglobin 9.7 g/dl (12.0-18.0); MODE NASAL CANNULA
--- NOTE | 2017-05-09 08:48 | RADRPT ---
PROCEDURE: XR Chest. CLINICAL INDICATION: Shortness of breath. TECHNIQUE: Single frontal view. COMPARISON: 05/08/2017. FINDINGS: The left arm PICC line and nasogastric tube remain in satisfactory position. Pulmonary edema is unch anged. There is mild right basilar atelectasis. The heart is enlarged. There is no pleural effusion. There is no pneumothorax. IMPRESSION: 1. No change from 05/08/2017. RPTAT: QQ .Rei Holder MD, MD Date Time Electronically viewed and signed by .Rei Holder MD, MD on 05/09/2017 08:48 .R/
[2017-05-09] MEDS: CARBIDOPA/LEVODOPA (25/100) TAB NGT SCH ×3 (08:55→21:23)
[2017-05-09] MEDS: FAMOTIDINE 20 MG INJ IV SCH ×2 (08:57→22:30)
[2017-05-09] MEDS: ENOXAPARIN 30 MG/0.3 ML SYG SC SCH (08:57)
[2017-05-09] MEDS ORDERED: INFLUENZA VIRUS VACCINE 0.5 ML (DISPENSING) IM* ONE (09:00)
[2017-05-09] MEDS: ALLOPURINOL 100 MG TAB PO SCH (09:00)
[2017-05-09] MEDS: [UNRECOGNIZED DRUG - REMARK] XX SCH (09:00)
[2017-05-09] MEDS ORDERED: VANCOMYCIN 1.25 GM in SOD CHLORIDE 0.9% 250 ML IVPB SCH (10:00)
[2017-05-09] MEDS ORDERED: SOD CHLORIDE 0.9% 100 ML ONE (12:26)
[2017-05-09] MEDS: DEXTROSE 5%-0.45% NACL 1,000 ML IV SCH (12:28)
--- NOTE | 2017-05-09 12:53 | RADRPT ---
PROCEDURE: MR Brain without contrast. CLINICAL INDICATION: CVA. Aphasia TECHNIQUE: An MRI of the brain was performed on a 1.5 braulio scanner utilizing the following sequen maggi: Sagittal T1 weighted, axial T2 weighted, axial FLAIR, coronal GRE, and axial diffusion weighted with ADC mapping. COMPARISON: None FINDINGS: Marked low-attenuation on multiple sequences resulting in limitations and detailed evaluation. The a xial slow images are nondiagnostic. No evidence of restricted diffusion to suggest acute or early martinez bacute ischemic infarction. There is no evidence of intracranial hemorrhage, mass effect, or midlin e shift. No extra-axial fluid collections are seen. No hypointense signal abnormalities are seen on the GRE images to suggest the presence of blood degr adation products. Scattered nonspecific FLAIR/T2 signal hyperintensity foci in the subcortical and p eriventricular white matter compatible with sequelae of chronic microvascular ischemic disease. Tiny remote lacunar infarct in the anterior left thalamus The brain parenchyma is otherwise normal in signal intensity and morphology with preservation of gra y white differentiation . Age appropriate size of the ventricles and subarachnoid spaces. The posterior fossa contents, brainstem, seventh - eighth cranial nerve complexes, pituitary axis, o rbits, paranasal sinuses, and mastoid air cells are unremarkable. Normal flow voids are visible in the proximal intracranial arteries and dural sinuses, indicating pa tency. IMPRESSION: 1. No acute or early subacute ischemic infarction or intracranial hemorrhage. 2. Mild chronic microvascular ischemic changes and age related volume loss. 3. Image degradation secondary to patient motion limiting detailed evaluation particularly on T1-we ighted sequences. RPTAT:AAJJ Physician Gopal Date Time Electronically viewed and signed by Physician Gopal on 05/09/2017 12:52 ROLLY/
--- NOTE | 2017-05-09 12:57 | RADRPT ---
PROCEDURE: MRA Brain. CLINICAL INDICATION: CVA TECHNIQUE: An MRA of the brain was performed on a 1.5 braulio scanner utilizing 3-D [id number]-kohbot MR angiography technique. Source and MIP images were reviewed. COMPARISON: None FINDINGS: Snares degradation markedly limiting evaluation. To severe initiation secondary to patient motion. T he internal carotid arteries proximal middle, anterior, and posterior cerebral arteries appear gross ly patent. The basilar artery areas grossly patent. The right vertebral artery is hypoplastic. The distal branch vessels are not visualized. Detailed evaluation of the visualized intracranial ves sels is severely limited. IMPRESSION: 1. No large vascular malformation. Extremely limited study due to image degradation secondary to pat ient motion as detailed above. RPTAT:AAJJ Physician Gopal Date Time Electronically viewed and signed by Physician Gopal on 05/09/2017 12:57 ROLLY/
--- NOTE | 2017-05-09 14:00 | RADRPT ---
PROCEDURE: MRA Neck without contrast. CLINICAL INDICATION: Stroke. New TECHNIQUE: An MRA of the major cervical arteries was performed on the 1.5 braulio scanner utilizing axial 2D time of flight. No IV contrast was given as ordered. Source and MIPPED images were reviewe d. COMPARISON: No prior studies are available for comparison. FINDINGS: The study is markedly limited due to initiation of the frontal patient motion. Left carotid arteries are grossly patent and normal in caliber. The carotid bulbs appear normal, an d no hemodynamically significant stenosis is evident within either internal carotid artery. Marked t ortuosity of the distal extracranial internal carotid arteries bilaterally left greater than right n ew dominant right vertebral artery. Mildly hypoplastic left vertebral artery suboptimally evaluated proximally due to image degradation. There is no evidence of vascular stenosis or occlusion. IMPRESSION: 1. Extremely limited study due to patient motion and image degradation, however, no gross evidence o f hemodynamically significant stenosis involving the carotid arteries bilaterally. 2. Dominant right vertebral artery. 3. CT angiography may be considered for further characterization. RPTAT:AAJJ Physician Gopal Date Time Electronically viewed and signed by Physician Gopal on 05/09/2017 13:59 ROLLY/
--- NOTE | 2017-05-09 14:24 | CONS ---
Date/Time of Note Date/Time of Note DATE: 05/09/17 TIME: 14:13 Assessment/Plan Assessment/Plan Chief Complaint/Hosp Course IMP: IMPRESSION: 1. Bradycardia, severe in the 20s in the setting of hyperkalemia. Continue to follow with resolution of bradycardia after improvement in hyperkalemia.-no recurrence since improvement in hyperkalemia/ nl tsh 2. Abnormal electrocardiogram with baseline conduction system disease and right bundle branch block.-negative trop x 3/NL EF by echo this admit 3. Hypotension-improved and stable off of anti-hypertensives 4. Hyperkalemia, improved. 5. Renal failure, ongoing. 6. Altered mental state. 7. Anemia with acidosis. 8. Slurred speech secondary to low cardiac output and bradycardia versus transient ischemic attack/stroke. REcc: -Tele -serial ecg's -Contineu asa -Follow volume status and creatnine closely -continue abx's and f/u cx data Problems: Consultation Date/Type/Reason Admit Date/Time May 07, 2017 at 15:05 Initial Consult Date 05/08/17 Type of Consultation: cardiology Reason for Consultation bradycardia Referring Provider: ABI GARCIA Exam/Review of Systems Vital Signs Vitals Vital Signs Date Time Temp Pulse Resp B/P Pulse Ox O2 Delivery O2 Flow Rate FiO2 05/09/17 13:00 71 20 121/45 96 Nasal Cannula 3.0 05/09/17 12:00 98.0 Intake and Output 05/08/17 05/08/17 05/09/17 15:00 23:00 07:00 Intake Total 620.875 ml 1020 ml 610 ml Output Total 325 ml 425 ml 1050 ml Balance 295.875 ml 595 ml -440 ml Exam Review of Systems: CONSTITUTIONAL: No fevers, chills. PULMONARY: No sob CARDIOVASCULAR: No chest pain/palpitations GASTROINTESTINAL: No nausea/vomiting. GENITOURINARY: No hematuria/dysuria. MUSCULOSKELETAL: No myagias/arthalgias. PSYCHIATRIC: The patient denies depression. NEUROLOGIC: No weakness Constitutional: other (encephalopathic) Psych: no complaints Head: normocephalic ENMT: mucosa pink and moist Neck: jvd (9 cm water), supple Respiratory: diminished breath sounds Cardiovascular: regular rate and rhythm Gastrointestinal: non-tender, soft Musculoskeletal: muscle tone (normal) Extremities: other (contracted) Neurological: other (encephalopathic) Results Result Diagram: 05/09/17 0500 05/09/17 0500 Results 24 hrs Laboratory Tests Test 05/08/17 23:00 05/09/17 05:00 05/09/17 08:14 Urine Eosinophils % 0.0 Urine Random Creatinine 50.12 Urine Random Sodium 21 L Urine Protein/Creatinine Ratio 0.27 Urine Total Protein 14.0 H White Blood Count 7.8 # Red Blood Count 3.06 #L Hemoglobin 8.3 #L Hematocrit 27.2 #L Mean Corpuscular Volume 88.9 Mean Corpuscular Hemoglobin 27.1 L Mean Corpuscular Hemoglobin Concent 30.5 L Red Cell Distribution Width 16.7 H Platelet Count 106 #L Mean Platelet Volume 11.9 H Neutrophils % 82.0 H Lymphocytes % 5.9 L Monocytes % 9.2 Eosinophils % 0.1 Basophils % 0.1 Nucleated Red Blood Cells % 0.6 H Neutrophils # 6.4 Lymphocytes # 0.5 L Monocytes # 0.7 Eosinophils # 0.0 Basophils # 0.0 Nucleated Red Blood Cells # 0.1 H Sodium Level 140 Potassium Level 4.6 Chloride Level 109 Carbon Dioxide Level 27 Anion Gap 9 # Blood Urea Nitrogen 55 H Creatinine 1.18 H Glucose Level 122 Lactic Acid Level 1.0 Calcium Level 7.7 L Magnesium Level 3.1 H Total Bilirubin 0.4 Direct Bilirubin 0.00 Indirect Bilirubin 0.4 Aspartate Amino Transf (AST/SGOT) 47 H Alanine Aminotransferase (ALT/SGPT) 32 Alkaline Phosphatase 154 H Creatine Kinase 631 #H Creatine Kinase Index 1.0 Creatinine Kinase MB (Mass) 6.39 H Troponin I 0.021 Total Protein 5.7 L Albumin 2.8 L Globulin 2.90 Albumin/Globulin Ratio 0.96 Blood Gas Specimen Source Blood arterial Arterial Blood Date Drawn 05/09/2017 8:25:18 AM Arterial Blood pH (Temp corrected) 7.415 Arterial Blood pCO2 (Temp correct) 39.1 Arterial Blood pO2 (Temp corrected) 80.4 Arterial Blood HCO3 24.5 Arterial Blood Base Excess 0 Arterial Blood Oxygen Saturation 95.6 Jewel Test ACCEPTAB Arterial Blood Gas Puncture Site Right Radial Arterial Blood Carboxyhemoglobin 0.3 Arterial Blood Methemoglobin 0.3 Blood Gas A-a O2 Differential 65.9 H Oxyhemoglobin Percent 95.0 Total Hemoglobin 9.7 L Blood Gas Temperature 37.0 Blood Gas Modality NASAL CANNULA FiO2 27.0 Blood Gas Notified Whom JLD Blood Gas Notified Time 05/09/2017 8:41:54 AM Medications Medications Current Medications Dopamine HCl/ Dextrose 250 ml @ 0 mls/hr TITRATE IV Last administered on 05:05; Admin Dose 16.875 MLS/HR; Start 05/07/17 at 13:30 Dextrose/Sodium Chloride (D5-1/2ns) 1,000 ml @ 70 mls/hr [id number] IV Last administered on 05/09/17 12:28; Admin Dose 70 MLS/HR; Start 05/07/17 at 17:26 Ondansetron HCl (Zofran Inj) 4 mg Q6H PRN IV NAUSEA AND/OR VOMITING; Start 05/07/17 at 17:30 Acetaminophen (Tylenol Supp) 650 mg Q4H PRN DE PAIN LEVEL 1-3 OR FEVER; Start 05/07/17 at 17:30 Morphine Sulfate (morphine) 2 mg Q4H PRN IV PAIN LEVEL 7-10; Start 05/07/17 at 17:30 Enoxaparin Sodium 30 mg 30 mg DAILY SC Last administered on 05/08/17 09:21; Admin Dose 30 MG; Start 05/08/17 at 09:00 Vancomycin HCl 1.25 gm/Sodium Chloride 250 ml @ 125 mls/hr Q24H IVPB Last administered on 05/08/17 16:28; Admin Dose 125 MLS/HR; Start 05/08/17 at 16:00 Levofloxacin/ Dextrose (Levaquin 500mg/ D5W 100 ml (Pmx)) 100 ml @ 100 mls/hr Q24H IVPB Last administered on 05/08/17 22:00; Admin Dose 100 MLS/HR; Start 05/08/17 at 22:00 Miscellaneous Information (* Miscellaneous Pharmacy Order) PATIENT'S OWN MEDICATI... DAILY XX ; Start 05/09/17 at 09:00 Carbidopa/Levodopa (Sinemet (25/ 100)) 1 tab TID NGT Last administered on 13:32; Admin Dose 1 TAB; Start 05/08/17 at 13:00 Levothyroxine Sodium (Synthroid) 137 mcg DAILY@06 NGT Last administered on 05/09 06:20; Admin Dose 137 MCG; Start 05/09/17 at 06:00 Aspirin (Aspirin) 81 mg DAILY NGT Last administered on 05/08/17 14:42; Admin Dose 81 MG; Start 05/09/17 at 09:00 Allopurinol (Zyloprim) 100 mg DAILY PO Last administered on 05/09/17 09:00; Admin Dose 100 MG; Start 05/08/17 at 18:00 Famotidine (Pepcid Iv) 20 mg Q12 IV Last administered on 05/09/17 08:57; Admin Dose 20 MG; Start 05/09/17 at 09:00 IV Flush (NS 10 ml) 10 ml PRN PRN IV IV PROTOCOL; Start 05/08/17 at 17:30 Miscellaneous Information (*Rx Drug Level Order Reminder*) VANCOMYCIN TROUGH ON ... ONCE ONCE XX ; Start 05/10/17 at 15:00; Stop 05/10/17 at 15:01 RON TORRES May 09, 2017 14:24
--- NOTE | 2017-05-09 15:20 | CONS ---
Date/Time of Note Date/Time of Note DATE: 05/09/17 TIME: 15:18 Assessment/Plan Assessment/Plan Chief Complaint/Hosp Course 77 F with PMhx of parkinsonism, HTN who was lotus in by ambulance for decresed level of consciousness and Aphasia. pt is noted to have hyperkalemia with K 6.2, BUN 82 Cr 1.4 and renal has been consulted for GUY, Hyperkalemia. pt is getting admitted for work up of AMS, stroke. Problems: Additional Assessment/Plan 1. Severe symptomatic bradycardia 2. GUY on possible CKD due to Prerenal azotemia 3. Possible CKD 4. Acute hyperkalemia due to GUY 5.AMs due to acute metabolic encephalopathy and bradycardia 6. H.o CHF 7. H/o HTN 8. h/o hypothyroidism 9/ H/o parkinsonism 10. Hyperuricemia without gout Plan: Cr improved to 1.1,K stable, electrolytes normal continue Current IVF< adequate urine output , Urine studies unremarkable, C/w Pre renal azotemia Uric acid 8.4- on allopurinol 100mg po daily Renal US showed normal right kidney, left kdiney not seen IV abx Vancomycin and levaquin, renally dose all abx will continue to follow up Consultation Date/Type/Reason Admit Date/Time May 07, 2017 at 15:05 Initial Consult Date 05/08/17 Type of Consultation: NEPHROLOGY Referring Provider: ABI GARCIA 24 HR Interval Summary Free Text/Dictation MRI brain negative for acute CVA< Cr improved to 1.18, electrolytes stable Exam/Review of Systems Vital Signs Vitals Vital Signs Date Time Temp Pulse Resp B/P Pulse Ox O2 Delivery O2 Flow Rate FiO2 05/09/17 14:00 75 20 145/55 97 Nasal Cannula 05/09/17 13:00 3.0 05/09/17 12:00 98.0 Intake and Output 05/08/17 05/08/17 05/09/17 15:00 23:00 07:00 Intake Total 620.875 ml 1020 ml 610 ml Output Total 325 ml 425 ml 1050 ml Balance 295.875 ml 595 ml -440 ml Exam Constitutional: alert Eyes: nl conjunctiva Neck: supple Respiratory: clear to auscultation, diminished breath sounds, normal air movement Cardiovascular: regular rate and rhythm Gastrointestinal: non-tender, soft Musculoskeletal: muscle tone, muscle weakness, nl extremities to inspection, swelling Results Result Diagram: 05/09/17 0500 05/09/17 0500 Results 24 hrs Laboratory Tests Test 05/08/17 23:00 05/09/17 05:00 05/09/17 08:14 Urine Eosinophils % 0.0 Urine Random Creatinine 50.12 Urine Random Sodium 21 L Urine Protein/Creatinine Ratio 0.27 Urine Total Protein 14.0 H White Blood Count 7.8 # Red Blood Count 3.06 #L Hemoglobin 8.3 #L Hematocrit 27.2 #L Mean Corpuscular Volume 88.9 Mean Corpuscular Hemoglobin 27.1 L Mean Corpuscular Hemoglobin Concent 30.5 L Red Cell Distribution Width 16.7 H Platelet Count 106 #L Mean Platelet Volume 11.9 H Neutrophils % 82.0 H Lymphocytes % 5.9 L Monocytes % 9.2 Eosinophils % 0.1 Basophils % 0.1 Nucleated Red Blood Cells % 0.6 H Neutrophils # 6.4 Lymphocytes # 0.5 L Monocytes # 0.7 Eosinophils # 0.0 Basophils # 0.0 Nucleated Red Blood Cells # 0.1 H Sodium Level 140 Potassium Level 4.6 Chloride Level 109 Carbon Dioxide Level 27 Anion Gap 9 # Blood Urea Nitrogen 55 H Creatinine 1.18 H Glucose Level 122 Lactic Acid Level 1.0 Calcium Level 7.7 L Magnesium Level 3.1 H Total Bilirubin 0.4 Direct Bilirubin 0.00 Indirect Bilirubin 0.4 Aspartate Amino Transf (AST/SGOT) 47 H Alanine Aminotransferase (ALT/SGPT) 32 Alkaline Phosphatase 154 H Creatine Kinase 631 #H Creatine Kinase Index 1.0 Creatinine Kinase MB (Mass) 6.39 H Troponin I 0.021 Total Protein 5.7 L Albumin 2.8 L Globulin 2.90 Albumin/Globulin Ratio 0.96 Blood Gas Specimen Source Blood arterial Arterial Blood Date Drawn 05/09/2017 8:25:18 AM Arterial Blood pH (Temp corrected) 7.415 Arterial Blood pCO2 (Temp correct) 39.1 Arterial Blood pO2 (Temp corrected) 80.4 Arterial Blood HCO3 24.5 Arterial Blood Base Excess 0 Arterial Blood Oxygen Saturation 95.6 Jewel Test ACCEPTAB Arterial Blood Gas Puncture Site Right Radial Arterial Blood Carboxyhemoglobin 0.3 Arterial Blood Methemoglobin 0.3 Blood Gas A-a O2 Differential 65.9 H Oxyhemoglobin Percent 95.0 Total Hemoglobin 9.7 L Blood Gas Temperature 37.0 Blood Gas Modality NASAL CANNULA FiO2 27.0 Blood Gas Notified Whom JLD Blood Gas Notified Time 05/09/2017 8:41:54 AM Medications Medications Current Medications Dopamine HCl/ Dextrose 250 ml @ 0 mls/hr TITRATE IV Last administered on 05:05; Admin Dose 16.875 MLS/HR; Start 05/07/17 at 13:30 Dextrose/Sodium Chloride (D5-1/2ns) 1,000 ml @ 70 mls/hr [id number] IV Last administered on 05/09/17 12:28; Admin Dose 70 MLS/HR; Start 05/07/17 at 17:26 Ondansetron HCl (Zofran Inj) 4 mg Q6H PRN IV NAUSEA AND/OR VOMITING; Start 05/07/17 at 17:30 Acetaminophen (Tylenol Supp) 650 mg Q4H PRN IN PAIN LEVEL 1-3 OR FEVER; Start 05/07/17 at 17:30 Morphine Sulfate (morphine) 2 mg Q4H PRN IV PAIN LEVEL 7-10; Start 05/07/17 at 17:30 Enoxaparin Sodium 30 mg 30 mg DAILY SC Last administered on 05/08/17 09:21; Admin Dose 30 MG; Start 05/08/17 at 09:00 Vancomycin HCl 1.25 gm/Sodium Chloride 250 ml @ 125 mls/hr Q24H IVPB Last administered on 05/08/17 16:28; Admin Dose 125 MLS/HR; Start 05/08/17 at 16:00 Levofloxacin/ Dextrose (Levaquin 500mg/ D5W 100 ml (Pmx)) 100 ml @ 100 mls/hr Q24H IVPB Last administered on 05/08/17 22:00; Admin Dose 100 MLS/HR; Start 05/08/17 at 22:00 Miscellaneous Information (* Miscellaneous Pharmacy Order) PATIENT'S OWN MEDICATI... DAILY XX ; Start 05/09/17 at 09:00 Carbidopa/Levodopa (Sinemet (25/ 100)) 1 tab TID NGT Last administered on 13:32; Admin Dose 1 TAB; Start 05/08/17 at 13:00 Levothyroxine Sodium (Synthroid) 137 mcg DAILY@06 NGT Last administered on 05/09 06:20; Admin Dose 137 MCG; Start 05/09/17 at 06:00 Aspirin (Aspirin) 81 mg DAILY NGT Last administered on 05/08/17 14:42; Admin Dose 81 MG; Start 05/09/17 at 09:00 Allopurinol (Zyloprim) 100 mg DAILY PO Last administered on 05/09/17 09:00; Admin Dose 100 MG; Start 05/08/17 at 18:00 Famotidine (Pepcid Iv) 20 mg Q12 IV Last administered on 05/09/17 08:57; Admin Dose 20 MG; Start 05/09/17 at 09:00 IV Flush (NS 10 ml) 10 ml PRN PRN IV IV PROTOCOL; Start 05/08/17 at 17:30 Miscellaneous Information (*Rx Drug Level Order Reminder*) VANCOMYCIN TROUGH ON ... ONCE ONCE XX ; Start 05/10/17 at 15:00; Stop 05/10/17 at 15:01 ENRIQUETA HUNG MD May 09, 2017 15:20
[2017-05-09] MEDS: VANCOMYCIN 1.25 GM in SOD CHLORIDE 0.9% 250 ML IVPB SCH (16:11)
--- NOTE | 2017-05-09 16:51 | PN ---
DATE: 05/09/2017 INFECTIOUS DISEASE PROGRESS NOTE SUBJECTIVE: No acute events overnight. The patient is obtunded, in no distress , looks comfortable. VITAL SIGNS: Temperature 98, pulse 80, respirations 22, blood pressure 128/63, saturation 95 on nasal cannula. LABORATORY DATA: WBC 7.8, H and H 8.3 and 27.2, platelets 106, neutrophils 82, BUN 55, creatinine 1.18. MICROBIOLOGY: Blood cultures negative. DIAGNOSTICS: Chest x-ray this morning revealed pulmonary edema with mild right basilar atelectasis. INDWELLINGS: The patient has PICC line, Cabrera catheter and NG tube. ANTIMICROBIALS: 1. Vancomycin. 2. Levaquin. PHYSICAL EXAMINATION: GENERAL: Obese, well-developed elderly woman in no distress. HEENT: Head atraumatic, normocephalic. Sclerae anicteric. Buccal mucosa dry. NECK: Supple. CHEST: Rise symmetrical. Breath sounds diminished. HEART: S1, S2. ABDOMEN: Soft, bowel tones present. EXTREMITIES: Without cyanosis. Bilateral lower extremities erythema and edema. ASSESSMENT: 1. Acute encephalopathy, possibly toxic metabolic. 2. Bilateral lower extremities, acute on chronic cellulitis. 3. Bradycardia, cardiology follows. 4. Parkinson's dementia and chronic obstructive pulmonary disease. PLAN: The patient remains hemodynamically stable. She is very obtunded and at high risk for aspiration. She is on appropriate antimicrobials. Blood cultures have been negative. She is being followed by neurology, nephrology and cardiology. Bilateral lower extremities ultrasound was negative. We will continue her on current regimen. Dictated By: ANITA LUA [employer] OPERATOR for KRISTOPHER JACOBS/VERONIKA Conf#: [id number] DID#: [id number] LEONARD
--- NOTE | 2017-05-09 19:19 | PN ---
Date/Time of Note Date/Time of Note DATE: 05/09/17 TIME: 19:13 Assessment/Plan VTE Prophylaxis VTE Prophylaxis Intervention: SCD's Lines/Catheters IV [facility]ter [facility] (from [facility] PICC Line Central line still needed: Yes Urinary Cath still in place: Yes Reason Cath still needed: urinary retention Assessment/Plan Assessment/Plan - Expressive aphasia, rule out acute stroke. MRI of the brain. Dr. Forrest is following in neurology consultation. - Acute kidney injury with hyperkalemia. Dr. Cordoba is following in nephrology consultation. Continue IV fluids. Monitor electrolytes. - Acute respiratory insufficiency. Continue breathing treatment and oxygen supplementation. - Chronic obstructive pulmonary disease. - History of hypothyroidism. TSH is wnl. Continue levothyroxine. - Possible bilateral lower extremity cellulitis. Continue vancomycin and Levaquin. Dr. Stephens is following in infectious disease consultation. - History of peripheral vascular disease with history of vascular interventions. Will continue Lovenox for deep venous thrombosis prophylaxis, also obtain bilateral venous Doppler to rule out DVT. - History of Parkinson disease. Continue Sinemet. - History of osteoarthritis. - History of hyperlipidemia. Further recommendations based on clinical course. Plan of care discussed with Dr. Bonilla. Exam/Review of Systems Vital Signs Vitals Vital Signs Date Time Temp Pulse Resp B/P Pulse Ox O2 Delivery O2 Flow Rate FiO2 05/09/17 19:00 67 12 132/55 97 Nasal Cannula 3.0 05/09/17 16:00 98.0 Intake and Output 05/08/17 05/08/17 05/09/17 15:00 23:00 07:00 Intake Total 620.875 ml 1020 ml 610 ml Output Total 325 ml 425 ml 1050 ml Balance 295.875 ml 595 ml -440 ml Exam Constitutional: non-verbal Head: normocephalic Neck: supple Respiratory: diminished breath sounds Cardiovascular: irregular rhythm Gastrointestinal: non-tender, soft Extremities: edema, other (eruthema) Neurological: lethargic Results Result Diagram: 05/09/17 0500 05/09/17 0500 Results 24 hrs Laboratory Tests Test 05/08/17 23:00 05/09/17 05:00 05/09/17 08:14 Urine Eosinophils % 0.0 Urine Random Creatinine 50.12 Urine Random Sodium 21 L Urine Protein/Creatinine Ratio 0.27 Urine Total Protein 14.0 H White Blood Count 7.8 # Red Blood Count 3.06 #L Hemoglobin 8.3 #L Hematocrit 27.2 #L Mean Corpuscular Volume 88.9 Mean Corpuscular Hemoglobin 27.1 L Mean Corpuscular Hemoglobin Concent 30.5 L Red Cell Distribution Width 16.7 H Platelet Count 106 #L Mean Platelet Volume 11.9 H Neutrophils % 82.0 H Lymphocytes % 5.9 L Monocytes % 9.2 Eosinophils % 0.1 Basophils % 0.1 Nucleated Red Blood Cells % 0.6 H Neutrophils # 6.4 Lymphocytes # 0.5 L Monocytes # 0.7 Eosinophils # 0.0 Basophils # 0.0 Nucleated Red Blood Cells # 0.1 H Sodium Level 140 Potassium Level 4.6 Chloride Level 109 Carbon Dioxide Level 27 Anion Gap 9 # Blood Urea Nitrogen 55 H Creatinine 1.18 H Glucose Level 122 Lactic Acid Level 1.0 Calcium Level 7.7 L Magnesium Level 3.1 H Total Bilirubin 0.4 Direct Bilirubin 0.00 Indirect Bilirubin 0.4 Aspartate Amino Transf (AST/SGOT) 47 H Alanine Aminotransferase (ALT/SGPT) 32 Alkaline Phosphatase 154 H Creatine Kinase 631 #H Creatine Kinase Index 1.0 Creatinine Kinase MB (Mass) 6.39 H Troponin I 0.021 Total Protein 5.7 L Albumin 2.8 L Globulin 2.90 Albumin/Globulin Ratio 0.96 Blood Gas Specimen Source Blood arterial Arterial Blood Date Drawn 05/09/2017 8:25:18 AM Arterial Blood pH (Temp corrected) 7.415 Arterial Blood pCO2 (Temp correct) 39.1 Arterial Blood pO2 (Temp corrected) 80.4 Arterial Blood HCO3 24.5 Arterial Blood Base Excess 0 Arterial Blood Oxygen Saturation 95.6 Jewel Test ACCEPTAB Arterial Blood Gas Puncture Site Right Radial Arterial Blood Carboxyhemoglobin 0.3 Arterial Blood Methemoglobin 0.3 Blood Gas A-a O2 Differential 65.9 H Oxyhemoglobin Percent 95.0 Total Hemoglobin 9.7 L Blood Gas Temperature 37.0 Blood Gas Modality NASAL CANNULA FiO2 27.0 Blood Gas Notified Whom JLD Blood Gas Notified Time 05/09/2017 8:41:54 AM Medications Medications Current Medications Dopamine HCl/ Dextrose 250 ml @ 0 mls/hr TITRATE IV Last administered on t 05:05; Admin Dose 16.875 MLS/HR; Start 05/07/17 at 13:30 Dextrose/Sodium Chloride (D5-1/2ns) 1,000 ml @ 70 mls/hr [id number] IV Last administered on 05/09/17 12:28; Admin Dose 70 MLS/HR; Start 05/07/17 at 17:26 Ondansetron HCl (Zofran Inj) 4 mg Q6H PRN IV NAUSEA AND/OR VOMITING; Start 05/07/17 at 17:30 Acetaminophen (Tylenol Supp) 650 mg Q4H PRN ND PAIN LEVEL 1-3 OR FEVER; Start 05/07/17 at 17:30 Morphine Sulfate (morphine) 2 mg Q4H PRN IV PAIN LEVEL 7-10; Start 05/07/17 at 17:30 Enoxaparin Sodium 30 mg 30 mg DAILY SC Last administered on 05/08/17 09:21; Admin Dose 30 MG; Start 05/08/17 at 09:00 Vancomycin HCl 1.25 gm/Sodium Chloride 250 ml @ 125 mls/hr Q24H IVPB Last administered on 05/09/17 16:11; Admin Dose 125 MLS/HR; Start 05/08/17 at 16:00 Levofloxacin/ Dextrose (Levaquin 500mg/ D5W 100 ml (Pmx)) 100 ml @ 100 mls/hr Q24H IVPB Last administered on 05/08/17 22:00; Admin Dose 100 MLS/HR; Start 05/08/17 at 22:00 Miscellaneous Information (* Miscellaneous Pharmacy Order) PATIENT'S OWN MEDICATI... DAILY XX ; Start 05/09/17 at 09:00 Carbidopa/Levodopa (Sinemet (25/ 100)) 1 tab TID NGT Last administered on 13:32; Admin Dose 1 TAB; Start 05/08/17 at 13:00 Levothyroxine Sodium (Synthroid) 137 mcg DAILY@06 NGT Last administered on 05/09 06:20; Admin Dose 137 MCG; Start 05/09/17 at 06:00 Aspirin (Aspirin) 81 mg DAILY NGT Last administered on 05/08/17 14:42; Admin Dose 81 MG; Start 05/09/17 at 09:00 Allopurinol (Zyloprim) 100 mg DAILY PO Last administered on 05/09/17 09:00; Admin Dose 100 MG; Start 05/08/17 at 18:00 Famotidine (Pepcid Iv) 20 mg Q12 IV Last administered on 05/09/17 08:57; Admin Dose 20 MG; Start 05/09/17 at 09:00 IV Flush (NS 10 ml) 10 ml PRN PRN IV IV PROTOCOL; Start 05/08/17 at 17:30 Miscellaneous Information (*Rx Drug Level Order Reminder*) VANCOMYCIN TROUGH ON ... ONCE ONCE XX ; Start 05/10/17 at 15:00; Stop 05/10/17 at 15:01 ABI GARCIA May 09, 2017 19:18
[2017-05-09] MEDS: LEVOFLOXACIN 500MG/D5W (PMX) 100 ML IVPB SCH (21:23)
[2017-05-10] VITALS (24 sets, daily range): BP systolic 106–163; BP diastolic 38–110; PULSE 61–84; RESP 13–22
[2017-05-10 05:12] LABS: BASOPHILS % 0.3 % (0.0-2.0); EOSINOPHILS % 0.1 % (0.0-7.0); HEMATOCRIT 26.9 % (37.0-47.0); HEMOGLOBIN 8.3 g/dl (12.0-16.0); LYMPHOCYTES # 0.8 10^3/ul (0.8-2.9); LYMPHOCYTES % 10.8 % (15.0-51.0); MEAN CORPUSCULAR HEMOGLOBIN 27.4 pg (29.0-33.0); MEAN CORPUSCULAR HGB CONC 30.9 g/dl (32.0-37.0); MEAN CORPUSCULAR VOLUME 88.8 fl (82.0-101.0); MEAN PLATELET VOLUME 11.3 fl (7.4-10.4); MONOCYTE # 0.9 10^3/ul (0.3-0.9); MONOCYTES % 12.3 % (0.0-11.0); NEUTROPHIL # 5.1 10^3/ul (1.6-7.5); NEUTROPHILS % 72.2 % (39.0-77.0); NUCLEATED RED BLOOD CELLS% 0.4 /100WBC (0.0-0.0); PLATELET COUNT 127 10^3/UL (140-415); RED BLOOD COUNT 3.03 10^6/ul (4.20-5.40); RED CELL DISTRIBUTION WIDTH 16.4 % (11.5-14.5); WHITE BLOOD COUNT 7.1 10^3/ul (4.8-10.8)
[2017-05-10 05:23] LABS: CALCIUM 8.3 mg/dl (8.4-10.2); CREATININE 0.88 mg/dl (0.44-1.00); POTASSIUM 3.8 mmol/L (3.5-5.1)
[2017-05-10] MEDS: LEVOTHYROXINE 137 MCG TAB NGT SCH (06:02)
[2017-05-10] MEDS: DEXTROSE 5%-0.45% NACL 1,000 ML IV SCH ×2 (06:02→16:22)
[2017-05-10] MEDS: ALLOPURINOL 100 MG TAB PO SCH (08:58)
[2017-05-10] MEDS: ASPIRIN 81 MG TAB NGT SCH (08:58)
[2017-05-10] MEDS: FAMOTIDINE 20 MG INJ IV SCH ×2 (08:58→20:58)
[2017-05-10] MEDS: CARBIDOPA/LEVODOPA (25/100) TAB NGT SCH ×3 (08:58→20:58)
[2017-05-10] MEDS: ENOXAPARIN 30 MG/0.3 ML SYG SC SCH (08:59)
[2017-05-10] MEDS: [UNRECOGNIZED DRUG - REMARK] XX SCH (08:59)
--- NOTE | 2017-05-10 14:13 | CONS ---
Date/Time of Note Date/Time of Note DATE: 05/10/17 TIME: 14:08 Assessment/Plan Assessment/Plan Additional Assessment/Plan Marked Bradycardia resolved Acute exacerbation of congestive heart failure clinically compensated Hypothyroidism obesity Anemia Hemodynamically stable bradycardia resolved heart failure clinically compensated Avoid AV Romel blockers Avoid Volume Overload Continue Synthroid Keep Mag > 2 and Potassium > 4 Continue GI and DVT Prophylaxis Transfer to Tele Consultation Date/Type/Reason Admit Date/Time May 07, 2017 at 15:05 Psychological: no complaints Past Medical History Medical History: congestive heart failure, high cholesterol, hypertension, hypothyroid, other (COPD. arthritis ) Past Surgical History Past Surgical Hx: other (Unknow, no family member is available ) Social History Alcohol Use: none Smoking Status: Never smoker Drug Use: none Exam/Review of Systems Vital Signs Vitals Vital Signs Date Time Temp Pulse Resp B/P Pulse Ox O2 Delivery O2 Flow Rate FiO2 05/10/17 13:00 78 19 140/65 98 Nasal Cannula 05/10/17 12:00 99.5 05/10/17 08:00 3.0 Intake and Output 05/09/17 05/09/17 05/10/17 15:00 23:00 07:00 Intake Total 740 ml 970 ml 490 ml Output Total 1250 ml 520 ml 645 ml Balance -510 ml 450 ml -155 ml Exam Constitutional: alert, oriented Neck: non-tender, supple Respiratory: clear to auscultation Cardiovascular: regular rate and rhythm Gastrointestinal: nl liver, spleen, non-tender, soft Extremities: normal pulses Results Result Diagram: 05/10/17 0400 05/10/17 0400 Results 24 hrs Laboratory Tests Test 05/10/17 04:00 White Blood Count 7.1 Red Blood Count 3.03 L Hemoglobin 8.3 L Hematocrit 26.9 L Mean Corpuscular Volume 88.8 Mean Corpuscular Hemoglobin 27.4 L Mean Corpuscular Hemoglobin Concent 30.9 L Red Cell Distribution Width 16.4 H Platelet Count 127 L Mean Platelet Volume 11.3 H Neutrophils % 72.2 Lymphocytes % 10.8 L Monocytes % 12.3 H Eosinophils % 0.1 Basophils % 0.3 Nucleated Red Blood Cells % 0.4 H Neutrophils # 5.1 Lymphocytes # 0.8 Monocytes # 0.9 Eosinophils # 0.0 Basophils # 0.0 Nucleated Red Blood Cells # 0.0 Sodium Level 140 Potassium Level 3.8 Chloride Level 108 Carbon Dioxide Level 30 Anion Gap 6 L Blood Urea Nitrogen 27 #H Creatinine 0.88 Glucose Level 109 Calcium Level 8.3 L Medications Medications Current Medications Dopamine HCl/ Dextrose 250 ml @ 0 mls/hr TITRATE IV Last administered on 05:05; Admin Dose 16.875 MLS/HR; Start 05/07/17 at 13:30 Dextrose/Sodium Chloride (D5-1/2ns) 1,000 ml @ 70 mls/hr [id number] IV Last administered on 05/10/17 06:02; Admin Dose 70 MLS/HR; Start 05/07/17 at 17:26 Ondansetron HCl (Zofran Inj) 4 mg Q6H PRN IV NAUSEA AND/OR VOMITING; Start 05/07/17 at 17:30 Acetaminophen (Tylenol Supp) 650 mg Q4H PRN [place] PAIN LEVEL 1-3 OR FEVER; Start 05/07/17 at 17:30 Morphine Sulfate (morphine) 2 mg Q4H PRN IV PAIN LEVEL 7-10; Start 05/07/17 at 17:30 Enoxaparin Sodium 30 mg 30 mg DAILY SC Last administered on 05/10/17 08:59; Admin Dose 30 MG; Start 05/08/17 at 09:00 Vancomycin HCl 1.25 gm/Sodium Chloride 250 ml @ 125 mls/hr Q24H IVPB Last administered on 05/09/17 16:11; Admin Dose 125 MLS/HR; Start 05/08/17 at 16:00 Levofloxacin/ Dextrose (Levaquin 500mg/ D5W 100 ml (Pmx)) 100 ml @ 100 mls/hr Q24H IVPB Last administered on 05/09/17 21:23; Admin Dose 100 MLS/HR; Start 05/08/17 at 22:00 Miscellaneous Information (* Miscellaneous Pharmacy Order) PATIENT'S OWN MEDICATI... DAILY XX ; Start 05/09/17 at 09:00 Carbidopa/Levodopa (Sinemet (25/ 100)) 1 tab TID NGT Last administered on 08:58; Admin Dose 1 TAB; Start 05/08/17 at 13:00 Levothyroxine Sodium (Synthroid) 137 mcg DAILY@06 NGT Last administered on 05/10 06:02; Admin Dose 137 MCG; Start 05/09/17 at 06:00 Aspirin (Aspirin) 81 mg DAILY NGT Last administered on 05/10/17 08:58; Admin Dose 81 MG; Start 05/09/17 at 09:00 Allopurinol (Zyloprim) 100 mg DAILY PO Last administered on 05/10/17 08:58; Admin Dose 100 MG; Start 05/08/17 at 18:00 Famotidine (Pepcid Iv) 20 mg Q12 IV Last administered on 05/10/17 08:58; Admin Dose 20 MG; Start 05/09/17 at 09:00 IV Flush (NS 10 ml) 10 ml PRN PRN IV IV PROTOCOL; Start 05/08/17 at 17:30 Miscellaneous Information (*Rx Drug Level Order Reminder*) VANCOMYCIN TROUGH ON ... ONCE ONCE XX ; Start 05/10/17 at 15:00; Stop 05/10/17 at 15:01 JB PICKETT M.D. May 10, 2017 14:13
--- NOTE | 2017-05-10 15:16 | CONS ---
Date/Time of Note Date/Time of Note DATE: 05/10/17 TIME: 15:14 Assessment/Plan Assessment/Plan Chief Complaint/Hosp Course 77 F with PMhx of parkinsonism, HTN who was lotus in by ambulance for decresed level of consciousness and Aphasia. pt is noted to have hyperkalemia with K 6.2, BUN 82 Cr 1.4 and renal has been consulted for GUY, Hyperkalemia. pt is getting admitted for work up of AMS, stroke. Problems: Additional Assessment/Plan 1. Severe symptomatic bradycardia- improved 2. GUY on possible CKD due to Prerenal azotemia 3. Possible CKD 4. Acute hyperkalemia due to GUY 5.AMs due to acute metabolic encephalopathy and bradycardia 6. H.o CHF 7. H/o HTN 8. h/o hypothyroidism 9/ H/o parkinsonism 10. Hyperuricemia without gout Plan: Cr improved to normal 0.8 ,K stable, electrolytes normal continue Current IVF< adequate urine output , Urine studies unremarkable, C/w Pre renal azotemia Uric acid 8.4- stared on allopurinol 100mg po daily Renal US showed normal right kidney, left kdiney not seen IV abx Vancomycin and levaquin, renally dose all abx will continue to follow up Consultation Date/Type/Reason Admit Date/Time May 07, 2017 at 15:05 Initial Consult Date 05/08/17 Type of Consultation: NEPHROLOGY Referring Provider: ABI GARCIA Exam/Review of Systems Vital Signs Vitals Vital Signs Date Time Temp Pulse Resp B/P Pulse Ox O2 Delivery O2 Flow Rate FiO2 05/10/17 13:00 78 19 140/65 98 Nasal Cannula 05/10/17 12:00 99.5 05/10/17 08:00 3.0 Intake and Output 05/09/17 05/09/17 05/10/17 15:00 23:00 07:00 Intake Total 740 ml 970 ml 490 ml Output Total 1250 ml 520 ml 645 ml Balance -510 ml 450 ml -155 ml Exam Constitutional: alert Eyes: nl conjunctiva Neck: supple Respiratory: clear to auscultation, diminished breath sounds, normal air movement Cardiovascular: regular rate and rhythm Gastrointestinal: non-tender, soft Musculoskeletal: muscle tone, muscle weakness, nl extremities to inspection, swelling Results Result Diagram: 05/10/1739905/10/17 0400 Results 24 hrs Laboratory Tests Test 05/10/17 04:00 White Blood Count 7.1 Red Blood Count 3.03 L Hemoglobin 8.3 L Hematocrit 26.9 L Mean Corpuscular Volume 88.8 Mean Corpuscular Hemoglobin 27.4 L Mean Corpuscular Hemoglobin Concent 30.9 L Red Cell Distribution Width 16.4 H Platelet Count 127 L Mean Platelet Volume 11.3 H Neutrophils % 72.2 Lymphocytes % 10.8 L Monocytes % 12.3 H Eosinophils % 0.1 Basophils % 0.3 Nucleated Red Blood Cells % 0.4 H Neutrophils # 5.1 Lymphocytes # 0.8 Monocytes # 0.9 Eosinophils # 0.0 Basophils # 0.0 Nucleated Red Blood Cells # 0.0 Sodium Level 140 Potassium Level 3.8 Chloride Level 108 Carbon Dioxide Level 30 Anion Gap 6 L Blood Urea Nitrogen 27 #H Creatinine 0.88 Glucose Level 109 Calcium Level 8.3 L Medications Medications Current Medications Dopamine HCl/ Dextrose 250 ml @ 0 mls/hr TITRATE IV Last administered on 05:05; Admin Dose 16.875 MLS/HR; Start 05/07/17 at 13:30 Dextrose/Sodium Chloride (D5-1/2ns) 1,000 ml @ 70 mls/hr [id number] IV Last administered on 05/10/17 06:02; Admin Dose 70 MLS/HR; Start 05/07/17 at 17:26 Ondansetron HCl (Zofran Inj) 4 mg Q6H PRN IV NAUSEA AND/OR VOMITING; Start 05/07/17 at 17:30 Acetaminophen (Tylenol Supp) 650 mg Q4H PRN [place] PAIN LEVEL 1-3 OR FEVER; Start 05/07/17 at 17:30 Morphine Sulfate (morphine) 2 mg Q4H PRN IV PAIN LEVEL 7-10; Start 05/07/17 at 17:30 Enoxaparin Sodium 30 mg 30 mg DAILY SC Last administered on 05/10/17 08:59; Admin Dose 30 MG; Start 05/08/17 at 09:00 Vancomycin HCl 1.25 gm/Sodium Chloride 250 ml @ 125 mls/hr Q24H IVPB Last administered on 05/09/17 16:11; Admin Dose 125 MLS/HR; Start 05/08/17 at 16:00 Levofloxacin/ Dextrose (Levaquin 500mg/ D5W 100 ml (Pmx)) 100 ml @ 100 mls/hr Q24H IVPB Last administered on 05/09/17 21:23; Admin Dose 100 MLS/HR; Start 05/08/17 at 22:00 Miscellaneous Information (* Miscellaneous Pharmacy Order) PATIENT'S OWN MEDICATI... DAILY XX ; Start 05/09/17 at 09:00 Carbidopa/Levodopa (Sinemet (25/ 100)) 1 tab TID NGT Last administered on 08:58; Admin Dose 1 TAB; Start 05/08/17 at 13:00 Levothyroxine Sodium (Synthroid) 137 mcg DAILY@06 NGT Last administered on 05/10 06:02; Admin Dose 137 MCG; Start 05/09/17 at 06:00 Aspirin (Aspirin) 81 mg DAILY NGT Last administered on 05/10/17 08:58; Admin Dose 81 MG; Start 05/09/17 at 09:00 Allopurinol (Zyloprim) 100 mg DAILY PO Last administered on 05/10/17 08:58; Admin Dose 100 MG; Start 05/08/17 at 18:00 Famotidine (Pepcid Iv) 20 mg Q12 IV Last administered on 05/10/17 08:58; Admin Dose 20 MG; Start 05/09/17 at 09:00 IV Flush (NS 10 ml) 10 ml PRN PRN IV IV PROTOCOL; Start 05/08/17 at 17:30 ENRIQUETA HUNG MD May 10, 2017 15:16
--- NOTE | 2017-05-10 15:22 | CONS ---
Date/Time of Note Date/Time of Note DATE: 05/10/17 TIME: 15:20 Consult Date/Type/Reason Admit Date/Time May 07, 2017 at 15:05 Initial Consult Date 05/08/17 Type of Consultation: Neurology Reason for Consultation r/o CVA Ordering Provider: ABI GARCIA Subjective remains encephalopathic MRI shows no acute CVA Objective Vital Signs Date Time Temp Pulse Resp B/P Pulse Ox O2 Delivery O2 Flow Rate FiO2 05/10/17 13:00 78 19 140/65 98 Nasal Cannula 05/10/17 12:00 99.5 05/10/17 08:00 3.0 Intake and Output 05/09/17 05/09/17 05/10/17 15:00 23:00 07:00 Intake Total 740 ml 970 ml 490 ml Output Total 1250 ml 520 ml 645 ml Balance -510 ml 450 ml -155 ml Exam Exam arousable awake and alert tracks examiner non-verbal, not following commands global aphasia present CN: II-XII grossly intact she blinks to threat equally b/l Motor: w/d in all extremities in the plane of the bed Coord poor cooperation Results/Medications Result Diagram: 05/10/17 0400 05/10/17 0400 Results 24 hrs Laboratory Tests Test 05/10/17 04:00 White Blood Count 7.1 Red Blood Count 3.03 L Hemoglobin 8.3 L Hematocrit 26.9 L Mean Corpuscular Volume 88.8 Mean Corpuscular Hemoglobin 27.4 L Mean Corpuscular Hemoglobin Concent 30.9 L Red Cell Distribution Width 16.4 H Platelet Count 127 L Mean Platelet Volume 11.3 H Neutrophils % 72.2 Lymphocytes % 10.8 L Monocytes % 12.3 H Eosinophils % 0.1 Basophils % 0.3 Nucleated Red Blood Cells % 0.4 H Neutrophils # 5.1 Lymphocytes # 0.8 Monocytes # 0.9 Eosinophils # 0.0 Basophils # 0.0 Nucleated Red Blood Cells # 0.0 Sodium Level 140 Potassium Level 3.8 Chloride Level 108 Carbon Dioxide Level 30 Anion Gap 6 L Blood Urea Nitrogen 27 #H Creatinine 0.88 Glucose Level 109 Calcium Level 8.3 L Medications Current Medications Dopamine HCl/ Dextrose 250 ml @ 0 mls/hr TITRATE IV Last administered on t 05:05; Admin Dose 16.875 MLS/HR; Start 05/07/17 at 13:30 Dextrose/Sodium Chloride (D5-1/2ns) 1,000 ml @ 70 mls/hr [id number] IV Last administered on 05/10/17 06:02; Admin Dose 70 MLS/HR; Start 05/07/17 at 17:26 Ondansetron HCl (Zofran Inj) 4 mg Q6H PRN IV NAUSEA AND/OR VOMITING; Start 05/07/17 at 17:30 Acetaminophen (Tylenol Supp) 650 mg Q4H PRN [place] PAIN LEVEL 1-3 OR FEVER; Start 05/07/17 at 17:30 Morphine Sulfate (morphine) 2 mg Q4H PRN IV PAIN LEVEL 7-10; Start 05/07/17 at 17:30 Enoxaparin Sodium 30 mg 30 mg DAILY SC Last administered on 05/10/17 08:59; Admin Dose 30 MG; Start 05/08/17 at 09:00 Vancomycin HCl 1.25 gm/Sodium Chloride 250 ml @ 125 mls/hr Q24H IVPB Last administered on 05/09/17 16:11; Admin Dose 125 MLS/HR; Start 05/08/17 at 16:00 Levofloxacin/ Dextrose (Levaquin 500mg/ D5W 100 ml (Pmx)) 100 ml @ 100 mls/hr Q24H IVPB Last administered on 05/09/17 21:23; Admin Dose 100 MLS/HR; Start 05/08/17 at 22:00 Miscellaneous Information (* Miscellaneous Pharmacy Order) PATIENT'S OWN MEDICATI... DAILY XX ; Start 05/09/17 at 09:00 Carbidopa/Levodopa (Sinemet (25/ 100)) 1 tab TID NGT Last administered on 08:58; Admin Dose 1 TAB; Start 05/08/17 at 13:00 Levothyroxine Sodium (Synthroid) 137 mcg DAILY@06 NGT Last administered on 05/10 06:02; Admin Dose 137 MCG; Start 05/09/17 at 06:00 Aspirin (Aspirin) 81 mg DAILY NGT Last administered on 05/10/17 08:58; Admin Dose 81 MG; Start 05/09/17 at 09:00 Allopurinol (Zyloprim) 100 mg DAILY PO Last administered on 05/10/17 08:58; Admin Dose 100 MG; Start 05/08/17 at 18:00 Famotidine (Pepcid Iv) 20 mg Q12 IV Last administered on 05/10/17 08:58; Admin Dose 20 MG; Start 05/09/17 at 09:00 IV Flush (NS 10 ml) 10 ml PRN PRN IV IV PROTOCOL; Start 05/08/17 at 17:30 Assessment/Plan Chief Complaint/Hosp Course 77 year old female with CHF, HTN, HLD, Parkinson's, COPD, arthritis admitted with aphasia, bradycardia and hyperkalemia undergoing further w/u admitted to the ICU. MRI Brain w/o contrast: 1. No acute or early subacute ischemic infarction or intracranial hemorrhage. 2. Mild chronic microvascular ischemic changes and age related volume loss. Recommendations: ASA 81 mg daily resume Parkinson's medications if compliant maintain normotensive, afebrile, euglycemic DVT ppx PT/OT/Speech continue therapies will reconsult as needed Problems: PEGGY MERRITT MD May 10, 2017 15:22
[2017-05-10] MEDS: VANCOMYCIN 1.25 GM in SOD CHLORIDE 0.9% 250 ML IVPB SCH (15:34)
--- NOTE | 2017-05-10 17:48 | PN ---
Date/Time of Note Date/Time of Note DATE: 05/10/17 TIME: 17:45 Assessment/Plan Lines/Catheters IV Catheter Type (from [facility]): PICC Line Urinary Cath still in place: Yes Assessment/Plan Assessment/Plan Expressive aphasia, rule out acute stroke. MRI of the brain. Dr. Forrest is following in neurology consultation. - Acute kidney injury with hyperkalemia. Dr. Cordoba is following in nephrology consultation. Continue IV fluids. Monitor electrolytes. - Acute respiratory insufficiency. Continue breathing treatment and oxygen supplementation. - Chronic obstructive pulmonary disease. - History of hypothyroidism. TSH is wnl. Continue levothyroxine. - Possible bilateral lower extremity cellulitis. Continue vancomycin and Levaquin. Dr. Stephens is following in infectious disease consultation. - History of peripheral vascular disease with history of vascular interventions. Will continue Lovenox for deep venous thrombosis prophylaxis, also obtain bilateral venous Doppler to rule out DVT. - History of Parkinson disease. Continue Sinemet. - History of osteoarthritis. - History of hyperlipidemia. Further recommendations based on clinical course. Plan of care discussed with Dr. Bonilla. Subjective 24 Hr Interval Summary Free Text/Dictation HR 60- 80's today, afebrile, no new events overnight, dw staff Constitutional: requiring IVF, requiring O2 Exam/Review of Systems Vital Signs Vitals Vital Signs Date Time Temp Pulse Resp B/P Pulse Ox O2 Delivery O2 Flow Rate FiO2 05/10/17 17:00 67 13 124/55 97 Nasal Cannula 05/10/17 16:00 98.3 05/10/17 08:00 3.0 Intake and Output 05/09/17 05/09/17 05/10/17 15:00 23:00 07:00 Intake Total 740 ml 970 ml 490 ml Output Total 1250 ml 520 ml 645 ml Balance -510 ml 450 ml -155 ml Exam Respiratory: diminished breath sounds Cardiovascular: nl pulses Gastrointestinal: non-tender, soft Musculoskeletal: nl extremities to inspection Extremities: normal pulses Neurological: lethargic Results Result Diagram: 05/10/1739905/10/17399 Results 24 hrs Laboratory Tests Test 05/10/17 04:00 05/10/17 14:42 White Blood Count 7.1 Red Blood Count 3.03 L Hemoglobin 8.3 L Hematocrit 26.9 L Mean Corpuscular Volume 88.8 Mean Corpuscular Hemoglobin 27.4 L Mean Corpuscular Hemoglobin Concent 30.9 L Red Cell Distribution Width 16.4 H Platelet Count 127 L Mean Platelet Volume 11.3 H Neutrophils % 72.2 Lymphocytes % 10.8 L Monocytes % 12.3 H Eosinophils % 0.1 Basophils % 0.3 Nucleated Red Blood Cells % 0.4 H Neutrophils # 5.1 Lymphocytes # 0.8 Monocytes # 0.9 Eosinophils # 0.0 Basophils # 0.0 Nucleated Red Blood Cells # 0.0 Sodium Level 140 Potassium Level 3.8 Chloride Level 108 Carbon Dioxide Level 30 Anion Gap 6 L Blood Urea Nitrogen 27 #H Creatinine 0.88 Glucose Level 109 Calcium Level 8.3 L Vancomycin Level Trough 9.4 L Medications Medications Current Medications Dopamine HCl/ Dextrose 250 ml @ 0 mls/hr TITRATE IV Last administered on 05:05; Admin Dose 16.875 MLS/HR; Start 05/07/17 at 13:30 Dextrose/Sodium Chloride (D5-1/2ns) 1,000 ml @ 70 mls/hr [id number] IV Last administered on 05/10/17 06:02; Admin Dose 70 MLS/HR; Start 05/07/17 at 17:26 Ondansetron HCl (Zofran Inj) 4 mg Q6H PRN IV NAUSEA AND/OR VOMITING; Start 05/07/17 at 17:30 Acetaminophen (Tylenol Supp) 650 mg Q4H PRN [place] PAIN LEVEL 1-3 OR FEVER; Start 05/07/17 at 17:30 Morphine Sulfate (morphine) 2 mg Q4H PRN IV PAIN LEVEL 7-10; Start 05/07/17 at 17:30 Enoxaparin Sodium 30 mg 30 mg DAILY SC Last administered on 05/10/17 08:59; Admin Dose 30 MG; Start 05/08/17 at 09:00 Vancomycin HCl 1.25 gm/Sodium Chloride 250 ml @ 125 mls/hr Q24H IVPB Last administered on 05/10/17 15:34; Admin Dose 125 MLS/HR; Start 05/08/17 at 16:00 ; Stop 05/10/17 at 22:00 Levofloxacin/ Dextrose (Levaquin 500mg/ D5W 100 ml (Pmx)) 100 ml @ 100 mls/hr Q24H IVPB Last administered on 05/09/17 21:23; Admin Dose 100 MLS/HR; Start 05/08/17 at 22:00 Miscellaneous Information (* Miscellaneous Pharmacy Order) PATIENT'S OWN MEDICATI... DAILY XX ; Start 05/09/17 at 09:00 Carbidopa/Levodopa (Sinemet (25/ 100)) 1 tab TID NGT Last administered on 15:26; Admin Dose 1 TAB; Start 05/08/17 at 13:00 Levothyroxine Sodium (Synthroid) 137 mcg DAILY@06 NGT Last administered on 05/10 06:02; Admin Dose 137 MCG; Start 05/09/17 at 06:00 Aspirin (Aspirin) 81 mg DAILY NGT Last administered on 05/10/17 08:58; Admin Dose 81 MG; Start 05/09/17 at 09:00 Allopurinol (Zyloprim) 100 mg DAILY PO Last administered on 05/10/17 08:58; Admin Dose 100 MG; Start 05/08/17 at 18:00 Famotidine (Pepcid Iv) 20 mg Q12 IV Last administered on 05/10/17 08:58; Admin Dose 20 MG; Start 05/09/17 at 09:00 IV Flush 10 ml 10 ml PRN PRN IV IV PROTOCOL; Start 05/08/17 at 17:30 Vancomycin HCl/ Sodium Chloride (Vancocin/NS) 250 ml @ 83.333 mls/ hr Q24H IVPB ; Start 05/11/17 at 12:00 PANCHO SIGALA May 10, 2017 17:48
[2017-05-10] MEDS: LEVOFLOXACIN 500MG/D5W (PMX) 100 ML IVPB SCH (21:51)
[2017-05-11] VITALS (19 sets, daily range): BP systolic 96–141; BP diastolic 43–95; PULSE 61–80; RESP 13–24
[2017-05-11 05:03] LABS: ALBUMIN 2.9 g/dl (3.3-4.9); ALBUMIN/GLOBULIN RATIO 0.93; BILIRUBIN,INDIRECT 0.7 mg/dl (0-1.1); BILIRUBIN,TOTAL 0.7 mg/dl (0.2-1.3); CALCIUM 7.9 mg/dl (8.4-10.2); CREATININE 0.83 mg/dl (0.44-1.00); POTASSIUM 3.6 mmol/L (3.5-5.1)
[2017-05-11] MEDS: LEVOTHYROXINE 137 MCG TAB NGT SCH (06:58)
[2017-05-11] MEDS: DEXTROSE 5%-0.45% NACL 1,000 ML IV SCH ×2 (06:58)
[2017-05-11] MEDS: ALLOPURINOL 100 MG TAB PO SCH (08:33)
[2017-05-11] MEDS: CARBIDOPA/LEVODOPA (25/100) TAB NGT SCH ×3 (08:33→20:40)
[2017-05-11] MEDS: ENOXAPARIN 30 MG/0.3 ML SYG SC SCH (08:34)
[2017-05-11] MEDS: ASPIRIN 81 MG TAB NGT SCH (08:34)
[2017-05-11] MEDS: FAMOTIDINE 20 MG INJ IV SCH (08:35)
[2017-05-11] MEDS: [UNRECOGNIZED DRUG - REMARK] XX SCH (08:35)
--- NOTE | 2017-05-11 10:39 | CONS ---
Date/Time of Note Date/Time of Note DATE: 05/11/17 TIME: 10:36 Assessment/Plan Assessment/Plan Additional Assessment/Plan 1. Severe symptomatic bradycardia- improved 2. GUY on possible CKD due to Prerenal azotemia 3. Possible CKD 4. Acute hyperkalemia due to GUY 5.AMs due to acute metabolic encephalopathy and bradycardia 6. H.o CHF 7. H/o HTN 8. h/o hypothyroidism 9/ H/o parkinsonism 10. Hyperuricemia without gout Plan: Cr improved to normal ,K stable, electrolytes normal pt is NPO , will continue IVF D51/2NS at 70 cc/hr until pt passes swallow and gets started on diet Urine studies unremarkable, C/w Pre renal azotemia On allopurinol 100mg po daily for hyperuricemia. Renal US showed normal right kidney, left kdiney not seen IV abx Vancomycin and levaquin, renally dose all abx will continue to follow up Consultation Date/Type/Reason Admit Date/Time May 07, 2017 at 15:05 Initial Consult Date 05/08/17 Type of Consultation: NEPHROLOGY Referring Provider: ABI GARCIA 24 HR Interval Summary Free Text/Dictation Cr and electrolytes stable,s till NPO, sleepy, not able to pass swallow yet Exam/Review of Systems Vital Signs Vitals Vital Signs Date Time Temp Pulse Resp B/P Pulse Ox O2 Delivery O2 Flow Rate FiO2 05/11/17 08:00 68 05/11/17 08:00 98.4 14 98/44 100 Nasal Cannula 05/11/17 07:18 3.0 05/10/17 17:58 36 Intake and Output 05/10/17 05/10/17 05/11/17 15:00 23:00 07:00 Intake Total 1300 ml 560 ml Output Total 975 ml 110 ml Balance 325 ml 450 ml Exam Constitutional: pt is lethargic, sleepy, but arousable and alert Eyes: nl conjunctiva Neck: supple Respiratory: clear to auscultation, diminished breath sounds, normal air movement Cardiovascular: regular rate and rhythm Gastrointestinal: non-tender, soft Musculoskeletal: muscle tone, muscle weakness, nl extremities to inspection, swelling Results Result Diagram: 05/10/17 0400 05/11/17 0430 Results 24 hrs Laboratory Tests Test 05/10/17 14:42 05/11/17 04:30 Vancomycin Level Trough 9.4 L Sodium Level 142 Potassium Level 3.6 Chloride Level 106 Carbon Dioxide Level 32 H Anion Gap 8 Blood Urea Nitrogen 17 # Creatinine 0.83 Glucose Level 102 Calcium Level 7.9 L Total Bilirubin 0.7 Direct Bilirubin 0.00 Indirect Bilirubin 0.7 Aspartate Amino Transf (AST/SGOT) 55 H Alanine Aminotransferase (ALT/SGPT) 36 Alkaline Phosphatase 128 H Total Protein 6.0 L Albumin 2.9 L Globulin 3.10 Albumin/Globulin Ratio 0.93 Medications Medications Current Medications Dextrose/Sodium Chloride (D5-1/2ns) 1,000 ml @ 70 mls/hr [id number] IV Last administered on 05/11/17 00:00; Admin Dose 70 MLS/HR; Start 05/07/17 at 17:26 Ondansetron HCl (Zofran Inj) 4 mg Q6H PRN IV NAUSEA AND/OR VOMITING; Start 05/07/17 at 17:30 Acetaminophen (Tylenol Supp) 650 mg Q4H PRN [place] PAIN LEVEL 1-3 OR FEVER; Start 05/07/17 at 17:30 Morphine Sulfate (morphine) 2 mg Q4H PRN IV PAIN LEVEL 7-10; Start 05/07/17 at 17:30 Enoxaparin Sodium 30 mg 30 mg DAILY SC Last administered on 05/11/17 08:34; Admin Dose 30 MG; Start 05/08/17 at 09:00 Levofloxacin/ Dextrose (Levaquin 500mg/ D5W 100 ml (Pmx)) 100 ml @ 100 mls/hr Q24H IVPB Last administered on 05/10/17 21:51; Admin Dose 100 MLS/HR; Start 05/08/17 at 22:00 Miscellaneous Information (* Miscellaneous Pharmacy Order) PATIENT'S OWN MEDICATI... DAILY XX ; Start 05/09/17 at 09:00 Carbidopa/Levodopa (Sinemet (25/ 100)) 1 tab TID NGT Last administered on 08:33; Admin Dose 1 TAB; Start 05/08/17 at 13:00 Levothyroxine Sodium (Synthroid) 137 mcg DAILY@06 NGT Last administered on 05/11 06:58; Admin Dose 137 MCG; Start 05/09/17 at 06:00 Aspirin (Aspirin) 81 mg DAILY NGT Last administered on 05/11/17 08:34; Admin Dose 81 MG; Start 05/09/17 at 09:00 Allopurinol (Zyloprim) 100 mg DAILY PO Last administered on 05/11/17 08:33; Admin Dose 100 MG; Start 05/08/17 at 18:00 Famotidine (Pepcid Iv) 20 mg Q12 IV Last administered on 05/11/17 08:35; Admin Dose 20 MG; Start 05/09/17 at 09:00 IV Flush 10 ml 10 ml PRN PRN IV IV PROTOCOL; Start 05/08/17 at 17:30 Vancomycin HCl/ Sodium Chloride (Vancocin/NS) 250 ml @ 83.333 mls/ hr Q24H IVPB ; Start 05/11/17 at 12:00 ENRIQUETA HUNG MD May 11, 2017 10:39
[2017-05-11] MEDS: VANCOMYCIN 1.5 GM in SOD CHLORIDE 0.9% 250 ML IVPB SCH (13:03)
--- NOTE | 2017-05-11 13:25 | CONS ---
Date/Time of Note Date/Time of Note DATE: 05/11/17 TIME: 13:24 Assessment/Plan Assessment/Plan Chief Complaint/Hosp Course Full note dictated [id number] Problems: Consultation Date/Type/Reason Admit Date/Time May 07, 2017 at 15:05 Initial Consult Date 05/08/17 Type of Consultation: ID Referring Provider: ABI GARCIA Exam/Review of Systems Vital Signs Vitals Vital Signs Date Time Temp Pulse Resp B/P Pulse Ox O2 Delivery O2 Flow Rate FiO2 05/11/17 12:00 99.0 70 19 133/52 100 Nasal Cannula 05/11/17 10:20 4.0 36 Intake and Output 05/10/17 05/10/17 05/11/17 15:00 23:00 07:00 Intake Total 1300 ml 560 ml Output Total 975 ml 110 ml Balance 325 ml 450 ml Results Result Diagram: 05/10/17 0400 05/11/17 0430 Results 24 hrs Laboratory Tests Test 05/10/17 14:42 05/11/17 04:30 Vancomycin Level Trough 9.4 L Sodium Level 142 Potassium Level 3.6 Chloride Level 106 Carbon Dioxide Level 32 H Anion Gap 8 Blood Urea Nitrogen 17 # Creatinine 0.83 Glucose Level 102 Calcium Level 7.9 L Total Bilirubin 0.7 Direct Bilirubin 0.00 Indirect Bilirubin 0.7 Aspartate Amino Transf (AST/SGOT) 55 H Alanine Aminotransferase (ALT/SGPT) 36 Alkaline Phosphatase 128 H Total Protein 6.0 L Albumin 2.9 L Globulin 3.10 Albumin/Globulin Ratio 0.93 Medications Medications Current Medications Dextrose/Sodium Chloride (D5-1/2ns) 1,000 ml @ 70 mls/hr [id number] IV Last administered on 05/11/17t 00:00; Admin Dose 70 MLS/HR; Start 05/07/17 at 17:26 Ondansetron HCl (Zofran Inj) 4 mg Q6H PRN IV NAUSEA AND/OR VOMITING; Start 05/07/17 at 17:30 Acetaminophen (Tylenol Supp) 650 mg Q4H PRN [place] PAIN LEVEL 1-3 OR FEVER; Start 05/07/17 at 17:30 Morphine Sulfate (morphine) 2 mg Q4H PRN IV PAIN LEVEL 7-10; Start 05/07/17 at 17:30 Enoxaparin Sodium 30 mg 30 mg DAILY SC Last administered on 05/11/17 08:34; Admin Dose 30 MG; Start 05/08/17 at 09:00 Levofloxacin/ Dextrose (Levaquin 500mg/ D5W 100 ml (Pmx)) 100 ml @ 100 mls/hr Q24H IVPB Last administered on 05/10/17 21:51; Admin Dose 100 MLS/HR; Start 05/08/17 at 22:00 Miscellaneous Information (* Miscellaneous Pharmacy Order) PATIENT'S OWN MEDICATI... DAILY XX ; Start 05/09/17 at 09:00 Carbidopa/Levodopa (Sinemet (25/ 100)) 1 tab TID NGT Last administered on 13:03; Admin Dose 1 TAB; Start 05/08/17 at 13:00 Levothyroxine Sodium (Synthroid) 137 mcg DAILY@06 NGT Last administered on 05/11 06:58; Admin Dose 137 MCG; Start 05/09/17 at 06:00 Aspirin (Aspirin) 81 mg DAILY NGT Last administered on 05/11/17 08:34; Admin Dose 81 MG; Start 05/09/17 at 09:00 Allopurinol (Zyloprim) 100 mg DAILY PO Last administered on 05/11/17 08:33; Admin Dose 100 MG; Start 05/08/17 at 18:00 Famotidine (Pepcid Iv) 20 mg Q12 IV Last administered on 05/11/17 08:35; Admin Dose 20 MG; Start 05/09/17 at 09:00 IV Flush 10 ml 10 ml PRN PRN IV IV PROTOCOL; Start 05/08/17 at 17:30 Vancomycin HCl/ Sodium Chloride (Vancocin/NS) 250 ml @ 83.333 mls/ hr Q24H IVPB Last administered on 05/11/17 13:03; Admin Dose 83.333 MLS/HR; Start 05/11/17 at 12:00 ANITA LUA NP May 11, 2017 13:25
--- NOTE | 2017-05-11 14:20 | CONS ---
Date/Time of Note Date/Time of Note DATE: 05/11/17 TIME: 14:20 Assessment/Plan Assessment/Plan Additional Assessment/Plan Marked Bradycardia resolved Acute exacerbation of congestive heart failure clinically compensated Hypothyroidism obesity Anemia Hemodynamically stable bradycardia resolved heart failure clinically compensated Avoid AV Romel blockers Avoid Volume Overload Continue Synthroid Keep Mag > 2 and Potassium > 4 Continue GI and DVT Prophylaxis Transfer to Tele Consultation Date/Type/Reason Admit Date/Time May 07, 2017 at 15:05 Initial Consult Date 05/08/17 Type of Consultation: ID Referring Provider: ABI GARCIA Exam/Review of Systems Vital Signs Vitals Vital Signs Date Time Temp Pulse Resp B/P Pulse Ox O2 Delivery O2 Flow Rate FiO2 05/11/17 12:00 99.0 70 19 133/52 100 Nasal Cannula 05/11/17 10:20 4.0 36 Intake and Output 05/10/17 05/10/17 05/11/17 15:00 23:00 07:00 Intake Total 1300 ml 560 ml Output Total 975 ml 110 ml Balance 325 ml 450 ml Exam Constitutional: alert, oriented Neck: non-tender, supple Respiratory: clear to auscultation Cardiovascular: regular rate and rhythm Gastrointestinal: nl liver, spleen, non-tender, soft Extremities: normal pulses Results Result Diagram: 05/10/17 0400 05/11/17 0430 Results 24 hrs Laboratory Tests Test 05/10/17 14:42 05/11/17 04:30 Vancomycin Level Trough 9.4 L Sodium Level 142 Potassium Level 3.6 Chloride Level 106 Carbon Dioxide Level 32 H Anion Gap 8 Blood Urea Nitrogen 17 # Creatinine 0.83 Glucose Level 102 Calcium Level 7.9 L Total Bilirubin 0.7 Direct Bilirubin 0.00 Indirect Bilirubin 0.7 Aspartate Amino Transf (AST/SGOT) 55 H Alanine Aminotransferase (ALT/SGPT) 36 Alkaline Phosphatase 128 H Total Protein 6.0 L Albumin 2.9 L Globulin 3.10 Albumin/Globulin Ratio 0.93 Medications Medications Current Medications Dextrose/Sodium Chloride (D5-1/2ns) 1,000 ml @ 70 mls/hr [id number] IV Last administered on 05/11/17 00:00; Admin Dose 70 MLS/HR; Start 05/07/17 at 17:26 Ondansetron HCl (Zofran Inj) 4 mg Q6H PRN IV NAUSEA AND/OR VOMITING; Start 05/07/17 at 17:30 Acetaminophen (Tylenol Supp) 650 mg Q4H PRN [place] PAIN LEVEL 1-3 OR FEVER; Start 05/07/17 at 17:30 Morphine Sulfate (morphine) 2 mg Q4H PRN IV PAIN LEVEL 7-10; Start 05/07/17 at 17:30 Enoxaparin Sodium (Lovenox) 30 mg DAILY SC Last administered on 05/11/17 08:34 ; Admin Dose 30 MG; Start 05/08/17 at 09:00 Miscellaneous Information (* Miscellaneous Pharmacy Order) PATIENT'S OWN MEDICATI... DAILY XX ; Start 05/09/17 at 09:00 Carbidopa/Levodopa (Sinemet (25/ 100)) 1 tab TID NGT Last administered on 13:03; Admin Dose 1 TAB; Start 05/08/17 at 13:00 Levothyroxine Sodium (Synthroid) 137 mcg DAILY@06 NGT Last administered on 05/11 06:58; Admin Dose 137 MCG; Start 05/09/17 at 06:00 Aspirin (Aspirin) 81 mg DAILY NGT Last administered on 05/11/17 08:34; Admin Dose 81 MG; Start 05/09/17 at 09:00 Allopurinol (Zyloprim) 100 mg DAILY PO Last administered on 05/11/17 08:33; Admin Dose 100 MG; Start 05/08/17 at 18:00 Famotidine (Pepcid Iv) 20 mg Q12 IV Last administered on 05/11/17 08:35; Admin Dose 20 MG; Start 05/09/17 at 09:00 IV Flush 10 ml 10 ml PRN PRN IV IV PROTOCOL; Start 05/08/17 at 17:30 Vancomycin HCl 1.5 gm/Sodium Chloride 250 ml @ 83.333 mls/ hr Q24H IVPB Last administered on 05/11/17 13:03; Admin Dose 83.333 MLS/HR; Start 05/11/17 at 12: 00 Ceftriaxone Sodium (Rocephin) 50 ml @ 100 mls/hr Q24H IVPB ; Start 05/11/17 at 15:00 JB PICKETT M.D. May 11, 2017 14:20
[2017-05-11] MEDS ORDERED: CEFTRIAXONE 2 GM/50 ML (PMX) 50 ML IVPB SCH (15:00)
--- NOTE | 2017-05-11 16:41 | PN ---
Date/Time of Note Date/Time of Note DATE: 05/11/17 TIME: 16:40 Assessment/Plan Lines/Catheters IV Catheter Type (from [facility]): PICC Line Urinary Cath still in place: Yes Assessment/Plan Assessment/Plan - Expressive aphasia, rule out acute stroke. MRI of the brain. Dr. Forrest is following in neurology consultation. - Acute kidney injury with hyperkalemia. Dr. Cordoba is following in nephrology consultation. Continue IV fluids. Monitor electrolytes. - Acute respiratory insufficiency. Continue breathing treatment and oxygen supplementation. - Chronic obstructive pulmonary disease. - History of hypothyroidism. TSH is wnl. Continue levothyroxine. - Possible bilateral lower extremity cellulitis. Continue vancomycin and Levaquin. Dr. Stephens is following in infectious disease consultation. - History of peripheral vascular disease with history of vascular interventions. Will continue Lovenox for deep venous thrombosis prophylaxis, also obtain bilateral venous Doppler to rule out DVT. - History of Parkinson disease. Continue Sinemet. - History of osteoarthritis. - History of hyperlipidemia. Further recommendations based on clinical course. Plan of care discussed with Dr. Bonilla. Subjective 24 Hr Interval Summary Constitutional: requiring IVF, requiring O2 Exam/Review of Systems Vital Signs Vitals Vital Signs Date Time Temp Pulse Resp B/P Pulse Ox O2 Delivery O2 Flow Rate FiO2 05/11/17 15:08 98 4.0 36 05/11/17 15:00 74 20 106/80 Nasal Cannula 05/11/17 12:00 99.0 Intake and Output 05/10/17 05/10/17 05/11/17 15:00 23:00 07:00 Intake Total 1300 ml 560 ml Output Total 975 ml 110 ml Balance 325 ml 450 ml Exam Constitutional: alert, obese Respiratory: diminished breath sounds Cardiovascular: nl pulses Gastrointestinal: soft Musculoskeletal: swelling Extremities: other Neurological: confused Results Result Diagram: 05/10/17 0400 05/11/17 0430 Results 24 hrs Laboratory Tests Test 05/11/17 04:30 Sodium Level 142 Potassium Level 3.6 Chloride Level 106 Carbon Dioxide Level 32 H Anion Gap 8 Blood Urea Nitrogen 17 # Creatinine 0.83 Glucose Level 102 Calcium Level 7.9 L Total Bilirubin 0.7 Direct Bilirubin 0.00 Indirect Bilirubin 0.7 Aspartate Amino Transf (AST/SGOT) 55 H Alanine Aminotransferase (ALT/SGPT) 36 Alkaline Phosphatase 128 H Total Protein 6.0 L Albumin 2.9 L Globulin 3.10 Albumin/Globulin Ratio 0.93 Medications Medications Current Medications Dextrose/Sodium Chloride (D5-1/2ns) 1,000 ml @ 70 mls/hr [id number] IV Last administered on 05/11/17 00:00; Admin Dose 70 MLS/HR; Start 05/07/17 at 17:26 Ondansetron HCl (Zofran Inj) 4 mg Q6H PRN IV NAUSEA AND/OR VOMITING; Start 05/07/17 at 17:30 Acetaminophen (Tylenol Supp) 650 mg Q4H PRN [place] PAIN LEVEL 1-3 OR FEVER; Start 05/07/17 at 17:30 Morphine Sulfate (morphine) 2 mg Q4H PRN IV PAIN LEVEL 7-10; Start 05/07/17 at 17:30 Enoxaparin Sodium (Lovenox) 30 mg DAILY SC Last administered on 05/11/17 08:34 ; Admin Dose 30 MG; Start 05/08/17 at 09:00 Miscellaneous Information (* Miscellaneous Pharmacy Order) PATIENT'S OWN MEDICATI... DAILY XX ; Start 05/09/17 at 09:00 Carbidopa/Levodopa (Sinemet (25/ 100)) 1 tab TID NGT Last administered on 13:03; Admin Dose 1 TAB; Start 05/08/17 at 13:00 Levothyroxine Sodium (Synthroid) 137 mcg DAILY@06 NGT Last administered on 05/11 06:58; Admin Dose 137 MCG; Start 05/09/17 at 06:00 Aspirin (Aspirin) 81 mg DAILY NGT Last administered on 05/11/17 08:34; Admin Dose 81 MG; Start 05/09/17 at 09:00 Allopurinol (Zyloprim) 100 mg DAILY PO Last administered on 05/11/17 08:33; Admin Dose 100 MG; Start 05/08/17 at 18:00 IV Flush 10 ml 10 ml PRN PRN IV IV PROTOCOL; Start 05/08/17 at 17:30 Vancomycin HCl 1.5 gm/Sodium Chloride 250 ml @ 83.333 mls/ hr Q24H IVPB Last administered on 05/11/17 13:03; Admin Dose 83.333 MLS/HR; Start 05/11/17 at 12: 00 Ceftriaxone Sodium (Rocephin) 50 ml @ 100 mls/hr Q24H IVPB ; Start 05/11/17 at 15:00 Lansoprazole (Prevacid) 30 mg DAILY@06 NGT ; Start 05/12/17 at 06:00 PANCHO SIGALA May 11, 2017 16:41
[2017-05-12] VITALS (14 sets, daily range): BP systolic 125–165; BP diastolic 58–84; PULSE 59–83; RESP 17–22
--- NOTE | 2017-05-12 03:39 | PN ---
DATE: 05/10/2017 INFECTIOUS DISEASE PROGRESS NOTE SUBJECTIVE: No events overnight. The patient is obtunded, in no distress. No fevers. Temperature 98.1, pulse 79, respirations 22, blood pressure 160/88, saturation 94 on 3 liters. WBC 7.1, H and H 8.3 and 26.9, platelets 127, neutrophils 72.2, BUN 27, creatinine 0.88. MICROBIOLOGY: Blood cultures remain negative. Urine culture growing Strep agalactiae group B and K lebsiella pneumoniae. DIAGNOSTICS: Chest x-ray from yesterday revealed pulmonary edema with mild right basilar atelectasi s. MRI of the brain showed no acute abnormalities. INDWELLINGS: Indwelling left upper extremity PICC line, Cabrera. ANTIMICROBIALS: The patient is on: 1. IV vancomycin. 2. Levaquin. PHYSICAL EXAMINATION: GENERAL: This is a chronically ill-appearing, obese, elderly woman who is in no distress. HEENT: Head atraumatic, normocephalic. Sclerae anicteric. Buccal mucosa dry. NECK: Obese. CHEST: Rise symmetrical. Breath sounds diminished. HEART: S1, S2. ABDOMEN: Soft. Bowel tones present. EXTREMITIES: Bilateral lower extremity edema, erythema and drainage. ASSESSMENT: 1. Sepsis. 2. Multidrug resistant urinary tract infection. 3. Bilateral lower extremity [id number] cellulitis. 4. Acute encephalopathy. 5. Dysphagia. 6. Parkinson dementia. 7. Chronic obstructive pulmonary disease. 8. Bradycardia. PLAN: The patient remains hemodynamically stable, so far no evidence of acute intracranial patholog y. She is on appropriate antibiotics. We will send cultures of her lower extremity wounds. Dictated By: ANITA LUA BOARD CATCHER for KRISTOPHER JACOBS/VERONIKA Conf#: [id number] DID#: [id number]
[2017-05-12] MEDS: LEVOTHYROXINE 137 MCG TAB NGT SCH (06:00)
[2017-05-12] MEDS: LANSOPRAZOLE 30 MG CAP NGT SCH (06:19)
[2017-05-12 06:35] LABS: ABNORMAL IP MESSAGE 1; BASOPHILS % 0.5 % (0.0-2.0); EOSINOPHILS # 0.2 10^3/ul (0.0-0.5); EOSINOPHILS % 1.9 % (0.0-7.0); HEMATOCRIT 27.1 % (37.0-47.0); HEMOGLOBIN 8.4 g/dl (12.0-16.0); LYMPHOCYTES # 0.9 10^3/ul (0.8-2.9); LYMPHOCYTES % 11.1 % (15.0-51.0); MEAN CORPUSCULAR HEMOGLOBIN 27.4 pg (29.0-33.0); MEAN CORPUSCULAR VOLUME 88.3 fl (82.0-101.0); MEAN PLATELET VOLUME 10.4 fl (7.4-10.4); MONOCYTE # 1.3 10^3/ul (0.3-0.9); MONOCYTES % 16.2 % (0.0-11.0); NEUTROPHIL # 5.2 10^3/ul (1.6-7.5); NEUTROPHILS % 63.4 % (39.0-77.0); NUCLEATED RED BLOOD CELLS% 0.2 /100WBC (0.0-0.0); PLATELET COUNT 146 10^3/UL (140-415); RED BLOOD COUNT 3.07 10^6/ul (4.20-5.40); RED CELL DISTRIBUTION WIDTH 15.5 % (11.5-14.5); WHITE BLOOD COUNT 8.3 10^3/ul (4.8-10.8)
[2017-05-12 06:39] LABS: POSITIVE DIFF @See below
[2017-05-12 07:16] LABS: ALBUMIN 2.8 g/dl (3.3-4.9); ALBUMIN/GLOBULIN RATIO 0.82; BILIRUBIN,INDIRECT 0.8 mg/dl (0-1.1); BILIRUBIN,TOTAL 0.8 mg/dl (0.2-1.3); CALCIUM 8.2 mg/dl (8.4-10.2); CREATININE 0.8 mg/dl (0.44-1.00); POTASSIUM 3.4 mmol/L (3.5-5.1); TOTAL PROTEIN 6.2 g/dl (6.1-8.1)
[2017-05-12] MEDS: ASPIRIN 81 MG TAB NGT SCH (09:00)
[2017-05-12] MEDS: ALLOPURINOL 100 MG TAB PO SCH (09:00)
[2017-05-12] MEDS: CARBIDOPA/LEVODOPA (25/100) TAB NGT SCH ×3 (09:00→20:44)
[2017-05-12] MEDS: [UNRECOGNIZED DRUG - REMARK] XX SCH (09:00)
--- NOTE | 2017-05-12 09:17 | CONS ---
Date/Time of Note Date/Time of Note DATE: 05/12/17 TIME: 09:15 Assessment/Plan Assessment/Plan Additional Assessment/Plan 1. Severe symptomatic bradycardia- improved 2. GUY on possible CKD due to Prerenal azotemia 3. Possible CKD 4. Acute hyperkalemia due to GUY 5.AMs due to acute metabolic encephalopathy and bradycardia 6. H.o CHF 7. H/o HTN 8. h/o hypothyroidism 9/ H/o parkinsonism 10. Hyperuricemia without gout Plan: Cr improved to normal ,K low, will give KCL 20mEQ IV x 1 today pt is NPO , will continue IVF D51/2NS at 70 cc/hr until pt passes swallow and gets started on diet Urine studies unremarkable, C/w Pre renal azotemia On allopurinol 100mg po daily for hyperuricemia. Renal US showed normal right kidney, left kdiney not seen IV abx Vancomycin and levaquin, renally dose all abx will continue to follow up Consultation Date/Type/Reason Admit Date/Time May 07, 2017 at 15:05 Initial Consult Date 05/08/17 Type of Consultation: NEPHROLOGY Referring Provider: ABI GARCIA 24 HR Interval Summary Free Text/Dictation HR stable, BP stable, tranferred to Telemetry floor, K 3.4 Exam/Review of Systems Vital Signs Vitals Vital Signs Date Time Temp Pulse Resp B/P Pulse Ox O2 Delivery O2 Flow Rate FiO2 05/12/17 08:16 83 05/12/17 07:49 98.5 20 134/69 95 05/12/17 02:45 4.0 05/11/17 23:00 Nasal Cannula 05/11/17 17:52 36 Intake and Output 05/11/17 05/11/17 05/12/17 15:00 23:00 07:00 Intake Total 516 ml 574 ml 90 ml Output Total 575 ml 470 ml 375 ml Balance -59 ml 104 ml -285 ml Exam Constitutional: pt more alert, on telemetry floor Eyes: nl conjunctiva Neck: supple Respiratory: clear to auscultation, diminished breath sounds, normal air movement Cardiovascular: regular rate and rhythm Gastrointestinal: non-tender, soft Musculoskeletal: muscle tone, muscle weakness, nl extremities to inspection, swelling Results Result Diagram: 05/12/17 0532 05/12/17 0532 Results 24 hrs Laboratory Tests Test 05/12/17 05:32 White Blood Count 8.3 Red Blood Count 3.07 L Hemoglobin 8.4 L Hematocrit 27.1 L Mean Corpuscular Volume 88.3 Mean Corpuscular Hemoglobin 27.4 L Mean Corpuscular Hemoglobin Concent 31.0 L Red Cell Distribution Width 15.5 H Platelet Count 146 Mean Platelet Volume 10.4 Neutrophils % 63.4 Lymphocytes % 11.1 L Monocytes % 16.2 H Eosinophils % 1.9 Basophils % 0.5 Nucleated Red Blood Cells % 0.2 H Neutrophils # 5.2 Lymphocytes # 0.9 Monocytes # 1.3 H Eosinophils # 0.2 Basophils # 0.0 Nucleated Red Blood Cells # 0.0 Sodium Level 140 Potassium Level 3.4 L Chloride Level 105 Carbon Dioxide Level 30 Anion Gap 8 Blood Urea Nitrogen 14 Creatinine 0.80 Glucose Level 92 Calcium Level 8.2 L Total Bilirubin 0.8 Direct Bilirubin 0.00 Indirect Bilirubin 0.8 Aspartate Amino Transf (AST/SGOT) 49 H Alanine Aminotransferase (ALT/SGPT) 29 Alkaline Phosphatase 126 H Total Protein 6.2 Albumin 2.8 L Globulin 3.40 H Albumin/Globulin Ratio 0.82 Medications Medications Current Medications Dextrose/Sodium Chloride (D5-1/2ns) 1,000 ml @ 70 mls/hr [id number] IV Last administered on 05/11/17 00:00; Admin Dose 70 MLS/HR; Start 05/07/17 at 17:26 Ondansetron HCl (Zofran Inj) 4 mg Q6H PRN IV NAUSEA AND/OR VOMITING; Start 05/07/17 at 17:30 Acetaminophen (Tylenol Supp) 650 mg Q4H PRN [place] PAIN LEVEL 1-3 OR FEVER; Start 05/07/17 at 17:30 Morphine Sulfate (morphine) 2 mg Q4H PRN IV PAIN LEVEL 7-10; Start 05/07/17 at 17:30 Enoxaparin Sodium (Lovenox) 30 mg DAILY SC Last administered on 05/11/17 08:34 ; Admin Dose 30 MG; Start 05/08/17 at 09:00 Miscellaneous Information (* Miscellaneous Pharmacy Order) PATIENT'S OWN MEDICATI... DAILY XX ; Start 05/09/17 at 09:00 Carbidopa/Levodopa (Sinemet (25/ 100)) 1 tab TID NGT Last administered on 20:40; Admin Dose 1 TAB; Start 05/08/17 at 13:00 Levothyroxine Sodium (Synthroid) 137 mcg DAILY@06 NGT Last administered on 05/11 06:58; Admin Dose 137 MCG; Start 05/09/17 at 06:00 Aspirin (Aspirin) 81 mg DAILY NGT Last administered on 05/11/17 08:34; Admin Dose 81 MG; Start 05/09/17 at 09:00 Allopurinol (Zyloprim) 100 mg DAILY PO Last administered on 05/11/17 08:33; Admin Dose 100 MG; Start 05/08/17 at 18:00 IV Flush 10 ml 10 ml PRN PRN IV IV PROTOCOL; Start 05/08/17 at 17:30 Vancomycin HCl 1.5 gm/Sodium Chloride 250 ml @ 83.333 mls/ hr Q24H IVPB Last administered on 05/11/17 13:03; Admin Dose 83.333 MLS/HR; Start 05/11/17 at 12: 00 Ceftriaxone Sodium (Rocephin) 50 ml @ 100 mls/hr Q24H IVPB ; Start 05/11/17 at 15:00 Lansoprazole 30 mg 30 mg DAILY@06 NGT Last administered on 05/12/17 06:19; Admin Dose 30 MG; Start 05/12/17 at 06:00 Potassium Chloride/Sodium Chloride (KCl/NS) 110 ml @ 55 mls/hr ONCE ONCE IVPB ; Start 05/12/17 at 09:30; Stop 05/12/17 at 11:29; Status ENRIQUETA PACHECO MD May 12, 2017 09:16
[2017-05-12] MEDS ORDERED: POTASSIUM CHLORIDE 20 MEQ in SOD CHLORIDE 0.9% 100 ML IVPB ONE (09:30)
--- NOTE | 2017-05-12 09:35 | PN ---
DATE: 05/11/2017 SUBJECTIVE: The patient is more awake today, but still very sluggish and falls asleep without stimu lation. She is afebrile with temperature of 99, pulse 74, respirations 19, blood pressure 133/52, s aturation 100 on nasal cannula. LABORATORIES: No CBC this morning. BUN 17, creatinine 0.43. Sodium 142, potassium 3.6. MICROBIOLOGY: Urine culture on admission grew Klebsiella and Streptococcus agalactiae. ANTIMICROBIALS: She is on: 1. Vancomycin. 2. Levaquin. DIAGNOSTICS: The patient had a brain MRI that revealed no acute intracranial pathology. INDWELLINGS: Left upper extremity PICC line placed on 05/08/2017, NG tube, Cabrera catheter. PHYSICAL EXAMINATION: GENERAL: This is an obese, chronically ill-appearing, elderly woman who is lethargic, arousable and in no distress. HEENT: Head atraumatic, normocephalic. Sclerae anicteric. Buccal mucosa dry. NECK: Supple, trachea midline. CHEST: Rise symmetrical. Breath sounds diminished to bases. HEART: S1, S2. ABDOMEN: Soft, bowel tones present. EXTREMITIES: Bilateral lower extremity edema and some drainage. ASSESSMENT: 1. Acute encephalopathy, likely toxic metabolic. 2. Bilateral lower extremities, acute on chronic cellulitis. 3. Multidrug resistant urinary tract infection. 4. Symptomatic bradycardia on admission. 5. Parkinson's dementia. 6. Obesity. PLAN: The patient is clinically doing slightly better. She is being seen by multiple consultants. Neurology is on the case. As per discussion with nursing staff, the patient had been functional pr ior to this admission to the hospital. We will discuss with neurology the option of lumbar puncture , but will send serology for West Nile virus, IgG and IgM. Change Levaquin to IV Rocephin, continue vancomycin and await for lower extremities drainage cultures. Continue anti-aspiration measures. Dictated By: ANITA LUA IMPLEMENTATION ARCHITECT for KRISTOPHER JACOBS/VERONIKA Conf#: [id number] DID#: [id number]
[2017-05-12] MEDS: ENOXAPARIN 30 MG/0.3 ML SYG SC SCH (10:08)
[2017-05-12] MEDS: DEXTROSE 5%-0.45% NACL 1,000 ML IV SCH (11:46)
--- NOTE | 2017-05-12 12:40 | CONS ---
Date/Time of Note Date/Time of Note DATE: 05/12/17 TIME: 12:38 Consult Date/Type/Reason Admit Date/Time May 07, 2017 at 15:05 Initial Consult Date 05/08/17 Type of Consultation: Neurology Reason for Consultation encephalopathy Ordering Provider: ABI GARCIA transferred out of ICU more encephalopathic per report NPO due to lethargy concern for possible encephalitis as baseline she is oriented and functional Objective Vital Signs Date Time Temp Pulse Resp B/P Pulse Ox O2 Delivery O2 Flow Rate FiO2 05/12/17 12:27 100.5 68 17 125/64 97 05/12/17 02:45 4.0 05/11/17 23:00 Nasal Cannula 05/11/17 17:52 36 Intake and Output 05/11/17 05/11/17 05/12/17 15:00 23:00 07:00 Intake Total 516 ml 574 ml 90 ml Output Total 575 ml 470 ml 375 ml Balance -59 ml 104 ml -285 ml Exam awake and alert oriented to self, not to hospital says date is May 2020 CN: DAVID, VFF blinks to threat right NLF flattening Motor: anti-gravity in UE, LE only withdraws to noxious in plane of the bed Results/Medications Result Diagram: 05/12/17 0532 05/12/17 0532 Results 24 hrs Laboratory Tests Test 05/12/17 05:32 White Blood Count 8.3 Red Blood Count 3.07 L Hemoglobin 8.4 L Hematocrit 27.1 L Mean Corpuscular Volume 88.3 Mean Corpuscular Hemoglobin 27.4 L Mean Corpuscular Hemoglobin Concent 31.0 L Red Cell Distribution Width 15.5 H Platelet Count 146 Mean Platelet Volume 10.4 Neutrophils % 63.4 Lymphocytes % 11.1 L Monocytes % 16.2 H Eosinophils % 1.9 Basophils % 0.5 Nucleated Red Blood Cells % 0.2 H Neutrophils # 5.2 Lymphocytes # 0.9 Monocytes # 1.3 H Eosinophils # 0.2 Basophils # 0.0 Nucleated Red Blood Cells # 0.0 Sodium Level 140 Potassium Level 3.4 L Chloride Level 105 Carbon Dioxide Level 30 Anion Gap 8 Blood Urea Nitrogen 14 Creatinine 0.80 Glucose Level 92 Calcium Level 8.2 L Total Bilirubin 0.8 Direct Bilirubin 0.00 Indirect Bilirubin 0.8 Aspartate Amino Transf (AST/SGOT) 49 H Alanine Aminotransferase (ALT/SGPT) 29 Alkaline Phosphatase 126 H Total Protein 6.2 Albumin 2.8 L Globulin 3.40 H Albumin/Globulin Ratio 0.82 Medications Current Medications Dextrose/Sodium Chloride (D5-1/2ns) 1,000 ml @ 70 mls/hr [id number] IV Last administered on 05/12/17 11:46; Admin Dose 70 MLS/HR; Start 05/07/17 at 17:26 Ondansetron HCl (Zofran Inj) 4 mg Q6H PRN IV NAUSEA AND/OR VOMITING; Start 05/07/17 at 17:30 Acetaminophen (Tylenol Supp) 650 mg Q4H PRN [place] PAIN LEVEL 1-3 OR FEVER; Start 05/07/17 at 17:30 Morphine Sulfate (morphine) 2 mg Q4H PRN IV PAIN LEVEL 7-10; Start 05/07/17 at 17:30 Enoxaparin Sodium (Lovenox) 30 mg DAILY SC Last administered on 05/12/17 10:08 ; Admin Dose 30 MG; Start 05/08/17 at 09:00 Miscellaneous Information (* Miscellaneous Pharmacy Order) PATIENT'S OWN MEDICATI... DAILY XX ; Start 05/09/17 at 09:00 Carbidopa/Levodopa (Sinemet (25/ 100)) 1 tab TID NGT Last administered on 20:40; Admin Dose 1 TAB; Start 05/08/17 at 13:00 Levothyroxine Sodium (Synthroid) 137 mcg DAILY@06 NGT Last administered on 05/11 06:58; Admin Dose 137 MCG; Start 05/09/17 at 06:00 Aspirin (Aspirin) 81 mg DAILY NGT Last administered on 05/11/17 08:34; Admin Dose 81 MG; Start 05/09/17 at 09:00 Allopurinol (Zyloprim) 100 mg DAILY PO Last administered on 05/11/17 08:33; Admin Dose 100 MG; Start 05/08/17 at 18:00 IV Flush 10 ml 10 ml PRN PRN IV IV PROTOCOL; Start 05/08/17 at 17:30 Vancomycin HCl 1.5 gm/Sodium Chloride 250 ml @ 83.333 mls/ hr Q24H IVPB Last administered on 05/11/17 13:03; Admin Dose 83.333 MLS/HR; Start 05/11/17 at 12: 00 Ceftriaxone Sodium (Rocephin) 50 ml @ 100 mls/hr Q24H IVPB ; Start 05/11/17 at 15:00 Lansoprazole (Prevacid) 30 mg DAILY@06 NGT Last administered on 05/12/17 06:19 ; Admin Dose 30 MG; Start 05/12/17 at 06:00 Collagenase (Santyl) 1 applic DAILY TOP ; Start 05/13/17 at 09:00 Nystatin (Nystatin Powder) 1 applic BID TOP ; Start 05/12/17 at 21:00 Assessment/Plan Chief Complaint/Hosp Course 77 year old female with CHF, HTN, HLD, Parkinson's, COPD, arthritis admitted with aphasia, bradycardia and hyperkalemia undergoing further w/u admitted to the ICU. MRI Brain w/o contrast: 1. No acute or early subacute ischemic infarction or intracranial hemorrhage. 2. Mild chronic microvascular ischemic changes and age related volume loss. Recommendations: ASA 81 mg daily resume Parkinson's medications if compliant concern for possibly underlying encephalopathy more lethargic agree with plan for LP will send WNV IgG and IgM as well as cultures, encephalitis panel will follow Problems: PEGGY MERRITT MD May 12, 2017 12:40
[2017-05-12] MEDS: VANCOMYCIN 1.5 GM in SOD CHLORIDE 0.9% 250 ML IVPB SCH (13:12)
--- NOTE | 2017-05-12 13:58 | PN ---
Date/Time of Note Date/Time of Note DATE: 05/12/17 TIME: 13:52 Assessment/Plan VTE Prophylaxis VTE Prophylaxis Intervention: SCD's Lines/Catheters IV Catheter Type (from [facility]): Peripheral IV Urinary Cath still in place: Yes Reason Cath still needed: urinary retention Assessment/Plan Chief Complaint/Hosp Course Patient is more awake open eyes in response to verbal stimuli, however remains lethargic most of the time, pending LP. Assessment/Plan - Acute encephalopathy toxic metabolic - Possible encephalitis, pending LP Dr. Forrest is following in neurology consultation. - Bilateral lower extremity cellulitis. Continue to biotics per ID. Dr. Stephens is following in infectious disease consultation. - Polymicrobial urinary tract infection - Acute kidney injury, resolving. Dr. Cordoba is following in nephrology consultation. Continue IV fluids. Monitor electrolytes. - Acute respiratory insufficiency. Continue breathing treatment and oxygen supplementation. - Chronic obstructive pulmonary disease. - History of hypothyroidism. Continue levothyroxine. - History of peripheral vascular disease with history of vascular interventions. - History of Parkinson disease. Continue Sinemet. - History of osteoarthritis. - History of hyperlipidemia. Further recommendations based on clinical course. Plan of care discussed with Dr. Bonilla. Problems: Exam/Review of Systems Vital Signs Vitals Vital Signs Date Time Temp Pulse Resp B/P Pulse Ox O2 Delivery O2 Flow Rate FiO2 05/12/17 13:11 99.4 05/12/17 12:27 68 17 125/64 97 05/12/17 02:45 4.0 05/11/17 23:00 Nasal Cannula 05/11/17 17:52 36 Intake and Output 05/11/17 05/11/17 05/12/17 15:00 23:00 07:00 Intake Total 516 ml 574 ml 90 ml Output Total 575 ml 470 ml 375 ml Balance -59 ml 104 ml -285 ml Exam Constitutional: alert, frail Head: normocephalic Neck: supple Respiratory: diminished breath sounds Cardiovascular: nl pulses Gastrointestinal: non-tender, soft Extremities: edema, other (Erythema) Neurological: confused Results Result Diagram: 05/12/17 0532 05/12/17 0532 Results 24 hrs Laboratory Tests Test 05/12/17 05:32 White Blood Count 8.3 Red Blood Count 3.07 L Hemoglobin 8.4 L Hematocrit 27.1 L Mean Corpuscular Volume 88.3 Mean Corpuscular Hemoglobin 27.4 L Mean Corpuscular Hemoglobin Concent 31.0 L Red Cell Distribution Width 15.5 H Platelet Count 146 Mean Platelet Volume 10.4 Neutrophils % 63.4 Lymphocytes % 11.1 L Monocytes % 16.2 H Eosinophils % 1.9 Basophils % 0.5 Nucleated Red Blood Cells % 0.2 H Neutrophils # 5.2 Lymphocytes # 0.9 Monocytes # 1.3 H Eosinophils # 0.2 Basophils # 0.0 Nucleated Red Blood Cells # 0.0 Sodium Level 140 Potassium Level 3.4 L Chloride Level 105 Carbon Dioxide Level 30 Anion Gap 8 Blood Urea Nitrogen 14 Creatinine 0.80 Glucose Level 92 Calcium Level 8.2 L Total Bilirubin 0.8 Direct Bilirubin 0.00 Indirect Bilirubin 0.8 Aspartate Amino Transf (AST/SGOT) 49 H Alanine Aminotransferase (ALT/SGPT) 29 Alkaline Phosphatase 126 H Total Protein 6.2 Albumin 2.8 L Globulin 3.40 H Albumin/Globulin Ratio 0.82 Medications Medications Current Medications Dextrose/Sodium Chloride (D5-1/2ns) 1,000 ml @ 70 mls/hr [id number] IV Last administered on 05/12/17 11:46; Admin Dose 70 MLS/HR; Start 05/07/17 at 17:26 Ondansetron HCl (Zofran Inj) 4 mg Q6H PRN IV NAUSEA AND/OR VOMITING; Start 05/07/17 at 17:30 Acetaminophen (Tylenol Supp) 650 mg Q4H PRN [place] PAIN LEVEL 1-3 OR FEVER; Start 05/07/17 at 17:30 Morphine Sulfate (morphine) 2 mg Q4H PRN IV PAIN LEVEL 7-10; Start 05/07/17 at 17:30 Enoxaparin Sodium (Lovenox) 30 mg DAILY SC Last administered on 05/12/17 10:08 ; Admin Dose 30 MG; Start 05/08/17 at 09:00 Miscellaneous Information (* Miscellaneous Pharmacy Order) PATIENT'S OWN MEDICATI... DAILY XX ; Start 05/09/17 at 09:00 Carbidopa/Levodopa (Sinemet (25/ 100)) 1 tab TID NGT Last administered on 20:40; Admin Dose 1 TAB; Start 05/08/17 at 13:00 Levothyroxine Sodium (Synthroid) 137 mcg DAILY@06 NGT Last administered on 05/11 06:58; Admin Dose 137 MCG; Start 05/09/17 at 06:00 Aspirin (Aspirin) 81 mg DAILY NGT Last administered on 05/11/17 08:34; Admin Dose 81 MG; Start 05/09/17 at 09:00 Allopurinol (Zyloprim) 100 mg DAILY PO Last administered on 05/11/17 08:33; Admin Dose 100 MG; Start 05/08/17 at 18:00 IV Flush 10 ml 10 ml PRN PRN IV IV PROTOCOL; Start 05/08/17 at 17:30 Vancomycin HCl 1.5 gm/Sodium Chloride 250 ml @ 83.333 mls/ hr Q24H IVPB Last administered on 05/12/17 13:12; Admin Dose 83.333 MLS/HR; Start 05/11/17 at 12: 00 Ceftriaxone Sodium (Rocephin) 50 ml @ 100 mls/hr Q24H IVPB ; Start 05/11/17 at 15:00 Lansoprazole (Prevacid) 30 mg DAILY@06 NGT Last administered on 05/12/17 06:19 ; Admin Dose 30 MG; Start 05/12/17 at 06:00 Collagenase (Santyl) 1 applic DAILY TOP ; Start 05/13/17 at 09:00 Nystatin (Nystatin Powder) 1 applic BID TOP ; Start 05/12/17 at 21:00 ABI GARCIA May 12, 2017 13:58
--- NOTE | 2017-05-12 14:18 | PN ---
DATE: 05/12/2017 SUBJECTIVE: Patient was transferred out of ICU. She is very lethargic but arousable. She is in no distress, still with low-grade fevers. VITAL SIGNS: T-max current 100.5, pulse 68, respirations 17, blood pressure 125/64, saturation 97% on nasal cannula. WBC 8.3, H and H 8.4 and 27.1, platelets 146, neutrophils 63.4, BUN 14, creatinine 0.80. Urine culture on admission grew Klebsiella pneumoniae and Streptococcal agalactiae. ANTIMICROBIALS: The patient is on: 1. Vancomycin. 2. Rocephin. INDWELLINGS: Cabrera catheter and PICC line. PHYSICAL EXAMINATION: GENERAL: Morbidly obese elderly woman who is lethargic, in no distress. HEENT: Head atraumatic, normocephalic. Sclerae anicteric. Buccal mucosa dry. NECK: Obese. CHEST: Rise symmetrical. Breath sounds diminished to bases. HEART: S1, S2. ABDOMEN: Soft. Bowel tones present. EXTREMITIES: Without cyanosis. Bilateral lower extremities edema, erythema and some drainage. ASSESSMENT: 1. Acute encephalopathy, likely toxic metabolic. Rule out meningitis. As per report, the patient was functional prior to admission to the hospital, neurology on case. 2. Bilateral lower extremity cellulitis. 3. Polymicrobial urinary tract infection. 4. Morbid obesity. 5. Probable obstructive sleep apnea. 6. Parkinson's dementia. PLAN: The patient remains hemodynamically stable. Mental status slowly improving. Serology for We st Nile Virus IgM and IgG was sent yesterday. She is on broad spectrum antibiotics. Cultures of th e lower extremities wounds are pending. She had an MRI and CT of the brain that revealed no acute i ntracranial pathology. She is being seen by neurology. She may require lumbar puncture, will defer to neurology. Dictated By: ANITA LUA [employer] INSTALLER for KRISTOPHER JACOBS/VERONIKA Conf#: [id number] DID#: [id number]
--- NOTE | 2017-05-12 14:22 | RADRPT ---
PROCEDURE: XR Chest. CLINICAL INDICATION: Shortness of breath. TECHNIQUE: Single frontal view. COMPARISON: 05/09/2017. FINDINGS: The nasogastric tube and left arm PICC line has been removed. There is mild atelectasis at the lung bases. Pulmonary edema is improved. The heart size is normal. There is no pleural effusion. There is no pneumothorax. IMPRESSION: 1. Nasogastric tube and left arm PICC line removed. 2. Improved pulmonary edema. RPTAT: QQ .Rei Holder MD, MD Date Time Electronically viewed and signed by .Rei Holder MD, on 05/12/2017 14:22 .R/
[2017-05-12] MEDS: CEFTRIAXONE 2 GM/50 ML (PMX) 50 ML IVPB SCH (17:07)
--- NOTE | 2017-05-12 18:05 | CONS ---
Date/Time of Note Date/Time of Note DATE: 05/12/17 TIME: 18:02 Assessment/Plan Assessment/Plan Chief Complaint/Hosp Course IMP: IMPRESSION: 1. Bradycardia, severe in the 20s in the setting of hyperkalemia. Continue to follow with resolution of bradycardia after improvement in hyperkalemia.-no recurrence since improvement in hyperkalemia/ nl tsh 2. Abnormal electrocardiogram with baseline conduction system disease and right bundle branch block.-negative trop x 3/NL EF by echo this admit 3. Hypotension-improved and stable off of anti-hypertensives 4. Hyperkalemia, improved. 5. Renal failure, improved 6. Altered mental state/encephalopathy. 7. Anemia with acidosis. 8. Slurred speech secondary to low cardiac output and bradycardia versus transient ischemic attack/stroke.-remains with ams 9. Fevers REcc: -Tele -serial ecg's -Contineu asa -Follow volume status and creatnine closely -continue abx's and f/u cx data -Rx fevers Problems: Consultation Date/Type/Reason Admit Date/Time May 07, 2017 at 15:05 Initial Consult Date 05/08/17 Type of Consultation: cardiology Reason for Consultation Bradycardia Referring Provider: ABI GARCIA Exam/Review of Systems Vital Signs Vitals Vital Signs Date Time Temp Pulse Resp B/P Pulse Ox O2 Delivery O2 Flow Rate FiO2 05/12/17 16:15 66 05/12/17 15:41 99.3 20 146/70 97 05/12/17 02:45 4.0 05/11/17 23:00 Nasal Cannula 05/11/17 17:52 36 Intake and Output 05/11/17 05/11/17 05/12/17 15:00 23:00 07:00 Intake Total 516 ml 574 ml 90 ml Output Total 575 ml 470 ml 375 ml Balance -59 ml 104 ml -285 ml Exam Review of Systems: CONSTITUTIONAL: No fevers, chills. PULMONARY: No sob CARDIOVASCULAR: No chest pain/palpitations GASTROINTESTINAL: No nausea/vomiting. GENITOURINARY: No hematuria/dysuria. MUSCULOSKELETAL: No myagias/arthalgias. PSYCHIATRIC: The patient denies depression. NEUROLOGIC: encephalopathic Constitutional: alert Psych: no complaints Head: normocephalic ENMT: mucosa pink and moist Neck: jvd (9 cm water), supple Respiratory: diminished breath sounds (at bases/B) Cardiovascular: regular rate and rhythm Gastrointestinal: non-tender, soft Extremities: pitting pedal edema (bilateral) Neurological: confused Results Result Diagram: 05/12/17 0532 05/12/17 0532 Results 24 hrs Laboratory Tests Test 05/12/17 05:32 White Blood Count 8.3 Red Blood Count 3.07 L Hemoglobin 8.4 L Hematocrit 27.1 L Mean Corpuscular Volume 88.3 Mean Corpuscular Hemoglobin 27.4 L Mean Corpuscular Hemoglobin Concent 31.0 L Red Cell Distribution Width 15.5 H Platelet Count 146 Mean Platelet Volume 10.4 Neutrophils % 63.4 Lymphocytes % 11.1 L Monocytes % 16.2 H Eosinophils % 1.9 Basophils % 0.5 Nucleated Red Blood Cells % 0.2 H Neutrophils # 5.2 Lymphocytes # 0.9 Monocytes # 1.3 H Eosinophils # 0.2 Basophils # 0.0 Nucleated Red Blood Cells # 0.0 Sodium Level 140 Potassium Level 3.4 L Chloride Level 105 Carbon Dioxide Level 30 Anion Gap 8 Blood Urea Nitrogen 14 Creatinine 0.80 Glucose Level 92 Calcium Level 8.2 L Total Bilirubin 0.8 Direct Bilirubin 0.00 Indirect Bilirubin 0.8 Aspartate Amino Transf (AST/SGOT) 49 H Alanine Aminotransferase (ALT/SGPT) 29 Alkaline Phosphatase 126 H Total Protein 6.2 Albumin 2.8 L Globulin 3.40 H Albumin/Globulin Ratio 0.82 Medications Medications Current Medications Dextrose/Sodium Chloride (D5-1/2ns) 1,000 ml @ 70 mls/hr [id number] IV Last administered on 05/12/17 11:46; Admin Dose 70 MLS/HR; Start 05/07/17 at 17:26 Ondansetron HCl (Zofran Inj) 4 mg Q6H PRN IV NAUSEA AND/OR VOMITING; Start 05/07/17 at 17:30 Acetaminophen (Tylenol Supp) 650 mg Q4H PRN [place] PAIN LEVEL 1-3 OR FEVER; Start 05/07/17 at 17:30 Morphine Sulfate (morphine) 2 mg Q4H PRN IV PAIN LEVEL 7-10; Start 05/07/17 at 17:30 Enoxaparin Sodium (Lovenox) 30 mg DAILY SC Last administered on 05/12/17 10:08 ; Admin Dose 30 MG; Start 05/08/17 at 09:00 Miscellaneous Information (* Miscellaneous Pharmacy Order) PATIENT'S OWN MEDICATI... DAILY XX ; Start 05/09/17 at 09:00 Carbidopa/Levodopa (Sinemet (25/ 100)) 1 tab TID NGT Last administered on 20:40; Admin Dose 1 TAB; Start 05/08/17 at 13:00 Levothyroxine Sodium (Synthroid) 137 mcg DAILY@06 NGT Last administered on 05/11 06:58; Admin Dose 137 MCG; Start 05/09/17 at 06:00 Aspirin (Aspirin) 81 mg DAILY NGT Last administered on 05/11/17 08:34; Admin Dose 81 MG; Start 05/09/17 at 09:00 Allopurinol (Zyloprim) 100 mg DAILY PO Last administered on 05/11/17 08:33; Admin Dose 100 MG; Start 05/08/17 at 18:00 IV Flush 10 ml 10 ml PRN PRN IV IV PROTOCOL; Start 05/08/17 at 17:30 Vancomycin HCl/ Sodium Chloride (Vancocin/NS) 250 ml @ 83.333 mls/ hr Q24H IVPB Last administered on 05/12/17 13:12; Admin Dose 83.333 MLS/HR; Start 05/11/17 at 12:00 Lansoprazole (Prevacid) 30 mg DAILY@06 NGT Last administered on 05/12/17 06:19 ; Admin Dose 30 MG; Start 05/12/17 at 06:00 Collagenase (Santyl) 1 applic DAILY TOP ; Start 05/13/17 at 09:00 Nystatin 1 applic 1 applic BID TOP ; Start 05/12/17 at 21:00 Ceftriaxone Sodium (Rocephin) 50 ml @ 100 mls/hr Q24H IVPB Last administered on 05/12/17 17:07; Admin Dose 100 MLS/HR; Start 05/12/17 at 16:00 RON TORRES May 12, 2017 18:05
[2017-05-12] MEDS: NYSTATIN 30 GM POWDER BTL TOP SCH (20:44)
[2017-05-13] VITALS (12 sets, daily range): BP systolic 112–155; BP diastolic 59–68; PULSE 59–72; RESP 16–19
[2017-05-13] MEDS: LANSOPRAZOLE 30 MG CAP NGT SCH (05:17)
[2017-05-13] MEDS: LEVOTHYROXINE 137 MCG TAB NGT SCH (05:17)
[2017-05-13] MEDS: DEXTROSE 5%-0.45% NACL 1,000 ML IV SCH ×2 (05:22→18:26)
[2017-05-13 07:27] LABS: ABNORMAL IP MESSAGE 1; BASOPHILS % 0.3 % (0.0-2.0); EOSINOPHILS # 0.3 10^3/ul (0.0-0.5); EOSINOPHILS % 2.9 % (0.0-7.0); HEMATOCRIT 26.9 % (37.0-47.0); HEMOGLOBIN 8.2 g/dl (12.0-16.0); LYMPHOCYTES # 1.1 10^3/ul (0.8-2.9); LYMPHOCYTES % 11.8 % (15.0-51.0); MEAN CORPUSCULAR HEMOGLOBIN 27.3 pg (29.0-33.0); MEAN CORPUSCULAR HGB CONC 30.5 g/dl (32.0-37.0); MEAN CORPUSCULAR VOLUME 89.7 fl (82.0-101.0); MEAN PLATELET VOLUME 11.1 fl (7.4-10.4); MONOCYTE # 1.2 10^3/ul (0.3-0.9); MONOCYTES % 12.9 % (0.0-11.0); NEUTROPHIL # 6.2 10^3/ul (1.6-7.5); NEUTROPHILS % 65.1 % (39.0-77.0); NUCLEATED RED BLOOD CELLS% 0.2 /100WBC (0.0-0.0); PLATELET COUNT 164 10^3/UL (140-415); RED CELL DISTRIBUTION WIDTH 15.2 % (11.5-14.5); WHITE BLOOD COUNT 9.4 10^3/ul (4.8-10.8)
[2017-05-13 07:37] LABS: POSITIVE DIFF @See below
[2017-05-13 07:43] LABS: CALCIUM 8.1 mg/dl (8.4-10.2); CREATININE 0.74 mg/dl (0.44-1.00); POTASSIUM 3.4 mmol/L (3.5-5.1)
[2017-05-13 07:48] LABS: INR 1.1; PROTIME 14.2 Sec (12.2-14.2); PT RATIO 1.1
--- NOTE | 2017-05-13 08:58 | CONS ---
Date/Time of Note Date/Time of Note DATE: 05/13/17 TIME: 08:56 Consult Date/Type/Reason Admit Date/Time May 07, 2017 at 15:05 Initial Consult Date 05/08/17 Type of Consultation: cardiology Ordering Provider: ABI GARCIA Objective Vital Signs Date Time Temp Pulse Resp B/P Pulse Ox O2 Delivery O2 Flow Rate FiO2 05/13/17 08:18 98.3 57 18 140/67 91 05/13/17 01:03 4.0 05/11/17 23:00 Nasal Cannula 05/11/17 17:52 36 Intake and Output 05/12/17 05/12/17 05/13/17 15:00 23:00 07:00 Intake Total 110 ml 700 ml 530 ml Output Total 700 ml 400 ml Balance 110 ml 0 ml 130 ml Results/Medications Result Diagram: 05/13/17 0650 05/13/17 0650 Results 24 hrs Laboratory Tests Test 05/13/17 06:50 05/13/17 07:32 White Blood Count 9.4 Red Blood Count 3.00 L Hemoglobin 8.2 L Hematocrit 26.9 L Mean Corpuscular Volume 89.7 Mean Corpuscular Hemoglobin 27.3 L Mean Corpuscular Hemoglobin Concent 30.5 L Red Cell Distribution Width 15.2 H Platelet Count 164 Mean Platelet Volume 11.1 H Neutrophils % 65.1 Lymphocytes % 11.8 L Monocytes % 12.9 H Eosinophils % 2.9 Basophils % 0.3 Nucleated Red Blood Cells % 0.2 H Neutrophils # 6.2 Lymphocytes # 1.1 Monocytes # 1.2 H Eosinophils # 0.3 Basophils # 0.0 Nucleated Red Blood Cells # 0.0 Prothrombin Time 14.2 Prothrombin Time Ratio 1.1 INR International Normalized Ratio 1.10 Sodium Level 142 Potassium Level 3.4 L Chloride Level 108 Carbon Dioxide Level 31 Anion Gap 6 L Blood Urea Nitrogen 14 Creatinine 0.74 Glucose Level 95 Calcium Level 8.1 L Lab Scanned Report REFERENCE LAB Medications Current Medications Dextrose/Sodium Chloride (D5-1/2ns) 1,000 ml @ 70 mls/hr [id number] IV Last administered on 05/13/17t 05:22; Admin Dose 70 MLS/HR; Start 05/07/17 at 17:26 Ondansetron HCl (Zofran Inj) 4 mg Q6H PRN IV NAUSEA AND/OR VOMITING; Start 05/07/17 at 17:30 Acetaminophen (Tylenol Supp) 650 mg Q4H PRN [place] PAIN LEVEL 1-3 OR FEVER; Start 05/07/17 at 17:30 Morphine Sulfate (morphine) 2 mg Q4H PRN IV PAIN LEVEL 7-10; Start 05/07/17 at 17:30 Enoxaparin Sodium (Lovenox) 30 mg DAILY SC Last administered on 05/12/17 10:08 ; Admin Dose 30 MG; Start 05/08/17 at 09:00 Miscellaneous Information (* Miscellaneous Pharmacy Order) PATIENT'S OWN MEDICATI... DAILY XX ; Start 05/09/17 at 09:00 Levothyroxine Sodium (Synthroid) 137 mcg DAILY@06 NGT Last administered on 05/11 06:58; Admin Dose 137 MCG; Start 05/09/17 at 06:00 Allopurinol (Zyloprim) 100 mg DAILY PO Last administered on 05/11/17 08:33; Admin Dose 100 MG; Start 05/08/17 at 18:00 IV Flush 10 ml 10 ml PRN PRN IV IV PROTOCOL; Start 05/08/17 at 17:30 Vancomycin HCl/ Sodium Chloride (Vancocin/NS) 250 ml @ 83.333 mls/ hr Q24H IVPB Last administered on 05/12/17 13:12; Admin Dose 83.333 MLS/HR; Start 05/11/17 at 12:00 Lansoprazole (Prevacid) 30 mg DAILY@06 NGT Last administered on 05/12/17 06:19 ; Admin Dose 30 MG; Start 05/12/17 at 06:00 Collagenase (Santyl) 1 applic DAILY TOP ; Start 05/13/17 at 09:00 Nystatin 1 applic 1 applic BID TOP Last administered on 05/12/17 20:44; Admin Dose 1 APPLIC; Start 05/12/17 at 21:00 Ceftriaxone Sodium (Rocephin) 50 ml @ 100 mls/hr Q24H IVPB Last administered on 05/12/17 17:07; Admin Dose 100 MLS/HR; Start 05/12/17 at 16:00 Aspirin (Aspirin) 81 mg DAILY PO ; Start 05/13/17 at 09:00 Carbidopa/ Levodopa 1 tab 1 tab TID PO ; Start 05/13/17 at 09:00 Potassium Chloride/Sodium Chloride (KCl/NS) 110 ml @ 55 mls/hr ONCE ONCE IVPB ; Start 05/13/17 at 09:00; Stop 05/13/17 at 10:59; Status UNV Assessment/Plan Problems: (1) Acute weakness (2) Severe sinus bradycardia (3) Hyperkalemia (4) Renal insufficiency (5) Thrombocytopenia (6) Leg pain, bilateral (7) Symptomatic bradycardia Additional Assessment/Plan Thank you Dr Mcgregor and Dr Posada for seeing my pt for me. Patient came in with GUY, Hyperkalemia and Bradycardia Pt K is 3.4, will watch it and replace by nephro. Pt with severe venous insufficiency as well as ulcer with central venous compression syndrom. under going out pt work up right now she is confuse. need Speech and swallow cardiac perez monitoirngh sinus rhythm. stable Cr Improved. JU HUGHES MD May 13, 2017 08:58
[2017-05-13] MEDS: [UNRECOGNIZED DRUG - REMARK] XX SCH (09:00)
[2017-05-13] MEDS: ALLOPURINOL 100 MG TAB PO SCH (09:00)
[2017-05-13] MEDS: CARBIDOPA/LEVODOPA (25/100) TAB PO SCH ×3 (09:00→21:40)
[2017-05-13] MEDS: ASPIRIN 81 MG TAB PO SCH (09:00)
--- NOTE | 2017-05-13 09:15 | CONS ---
Date/Time of Note Date/Time of Note DATE: 05/13/17 TIME: 09:13 Assessment/Plan Assessment/Plan Additional Assessment/Plan 1. Bradycardia, severe in the 20s in the setting of hyperkalemia. Continue to follow with resolution of bradycardia after improvement in hyperkalemia.-no recurrence since improvement in hyperkalemia/ nl tsh - HR in 50-60 now, sinus - no Class I indicationb for pacer 2. Abnormal electrocardiogram with baseline conduction system disease and right bundle branch block.-negative trop x 3/NL EF by echo this admit 3. Hypotension-improved and stable off of anti-hypertensives - better now 4. Hyperkalemia, improved- BETTER 5. Renal failure, improved 6. Altered mental state/encephalopathy - multifactorial. 7. Anemia with acidosis - H/H stable now 8. Slurred speech secondary to low cardiac output and bradycardia versus transient ischemic attack/stroke.-remains with ams 9. Fevers Consultation Date/Type/Reason Admit Date/Time May 07, 2017 at 15:05 Initial Consult Date 05/08/17 Type of Consultation: cardiology Referring Provider: ABI GARCIA 24 HR Interval Summary Free Text/Dictation -no recurrence of araseli since hyperkalemia improved - HR in 50-60 now, sinus - no Class I indication for pacer ROS: No fever, no chills, no nausea, no vomiting, no diarrhea/constipation No recent weight changes No chest pain, no PND, no orthopnea No dizziness, blurred vision No thirst, no heat or cold intolerance (per nurse) Exam/Review of Systems Vital Signs Vitals Vital Signs Date Time Temp Pulse Resp B/P Pulse Ox O2 Delivery O2 Flow Rate FiO2 05/13/17 08:18 98.3 57 18 140/67 91 05/13/17 01:03 4.0 05/11/17 23:00 Nasal Cannula 05/11/17 17:52 36 Intake and Output 05/12/17 05/12/17 05/13/17 15:00 23:00 07:00 Intake Total 110 ml 700 ml 530 ml Output Total 700 ml 400 ml Balance 110 ml 0 ml 130 ml Exam General: WN/WD/NAD, AOx comfortable HEENT: Unicetric/atraumatic/EOMI (does not follow commands) NECK: JVD elevated, no thyromegaly Lymph: no lymphadenopathy HEART: regular with no S3, II/ systolic murmur at apex LUNGS: Coarse sounds ABD: soft, NT, ND, +BS : Intact Neuro: non focal SKIN: chronic changes, bruising EXT: trace edema Results Result Diagram: 05/13/17 0650 05/13/17 0650 Results 24 hrs Laboratory Tests Test 05/13/17 06:50 05/13/17 07:32 White Blood Count 9.4 Red Blood Count 3.00 L Hemoglobin 8.2 L Hematocrit 26.9 L Mean Corpuscular Volume 89.7 Mean Corpuscular Hemoglobin 27.3 L Mean Corpuscular Hemoglobin Concent 30.5 L Red Cell Distribution Width 15.2 H Platelet Count 164 Mean Platelet Volume 11.1 H Neutrophils % 65.1 Lymphocytes % 11.8 L Monocytes % 12.9 H Eosinophils % 2.9 Basophils % 0.3 Nucleated Red Blood Cells % 0.2 H Neutrophils # 6.2 Lymphocytes # 1.1 Monocytes # 1.2 H Eosinophils # 0.3 Basophils # 0.0 Nucleated Red Blood Cells # 0.0 Prothrombin Time 14.2 Prothrombin Time Ratio 1.1 INR International Normalized Ratio 1.10 Sodium Level 142 Potassium Level 3.4 L Chloride Level 108 Carbon Dioxide Level 31 Anion Gap 6 L Blood Urea Nitrogen 14 Creatinine 0.74 Glucose Level 95 Calcium Level 8.1 L Lab Scanned Report REFERENCE LAB Medications Medications Current Medications Dextrose/Sodium Chloride (D5-1/2ns) 1,000 ml @ 70 mls/hr [id number] IV Last administered on 05/13/17 05:22; Admin Dose 70 MLS/HR; Start 05/07/17 at 17:26 Ondansetron HCl (Zofran Inj) 4 mg Q6H PRN IV NAUSEA AND/OR VOMITING; Start 05/07/17 at 17:30 Acetaminophen (Tylenol Supp) 650 mg Q4H PRN [place] PAIN LEVEL 1-3 OR FEVER; Start 05/07/17 at 17:30 Morphine Sulfate (morphine) 2 mg Q4H PRN IV PAIN LEVEL 7-10; Start 05/07/17 at 17:30 Enoxaparin Sodium (Lovenox) 30 mg DAILY SC Last administered on 05/12/17 10:08 ; Admin Dose 30 MG; Start 05/08/17 at 09:00 Miscellaneous Information (* Miscellaneous Pharmacy Order) PATIENT'S OWN MEDICATI... DAILY XX ; Start 05/09/17 at 09:00 Levothyroxine Sodium (Synthroid) 137 mcg DAILY@06 NGT Last administered on 05/11 06:58; Admin Dose 137 MCG; Start 05/09/17 at 06:00 Allopurinol (Zyloprim) 100 mg DAILY PO Last administered on 05/11/17 08:33; Admin Dose 100 MG; Start 05/08/17 at 18:00 IV Flush 10 ml 10 ml PRN PRN IV IV PROTOCOL; Start 05/08/17 at 17:30 Vancomycin HCl/ Sodium Chloride (Vancocin/NS) 250 ml @ 83.333 mls/ hr Q24H IVPB Last administered on 05/12/17 13:12; Admin Dose 83.333 MLS/HR; Start 05/11/17 at 12:00 Lansoprazole (Prevacid) 30 mg DAILY@06 NGT Last administered on 05/12/17 06:19 ; Admin Dose 30 MG; Start 05/12/17 at 06:00 Collagenase (Santyl) 1 applic DAILY TOP ; Start 05/13/17 at 09:00 Nystatin 1 applic 1 applic BID TOP Last administered on 05/12/17 20:44; Admin Dose 1 APPLIC; Start 05/12/17 at 21:00 Ceftriaxone Sodium (Rocephin) 50 ml @ 100 mls/hr Q24H IVPB Last administered on 05/12/17 17:07; Admin Dose 100 MLS/HR; Start 05/12/17 at 16:00 Aspirin (Aspirin) 81 mg DAILY PO ; Start 05/13/17 at 09:00 Carbidopa/ Levodopa 1 tab 1 tab TID PO ; Start 05/13/17 at 09:00 Potassium Chloride/Sodium Chloride (KCl/NS) 110 ml @ 55 mls/hr ONCE IVPB ; Start 05/13/17 at 10:00; Stop 05/13/17 at 10:01 VINNY SALINAS MD May 13, 2017 09:15
[2017-05-13] MEDS: ENOXAPARIN 30 MG/0.3 ML SYG SC SCH (09:52)
[2017-05-13] MEDS: NYSTATIN 30 GM POWDER BTL TOP SCH ×2 (09:54→21:41)
[2017-05-13] MEDS ORDERED: POTASSIUM CHLORIDE 20 MEQ in SOD CHLORIDE 0.9% 100 ML IVPB SCH (10:00)
[2017-05-13] MEDS: COLLAGENASE 30 GM TUBE TOP SCH (14:33)
[2017-05-13] MEDS: VANCOMYCIN 1.5 GM in SOD CHLORIDE 0.9% 250 ML IVPB SCH (14:42)
--- NOTE | 2017-05-13 15:04 | CONS ---
Date/Time of Note Date/Time of Note DATE: 05/13/17 TIME: 15:02 Assessment/Plan Assessment/Plan Chief Complaint/Hosp Course SUBJECTIVE: No acute events, lethargic, arousable, afebrile Urine culture on admission grew Klebsiella pneumoniae and Streptococcal agalactiae, LE wound cx + Enterococcus and staph species. ANTIMICROBIALS: 1. Vancomycin. 2. Rocephin. INDWELLINGS: Cabrera catheter and PICC line. PHYSICAL EXAMINATION: GENERAL: Morbidly obese elderly woman who is lethargic, in no distress. HEENT: Head atraumatic, normocephalic. Sclerae anicteric. Buccal mucosa dry. NECK: Obese. CHEST: Rise symmetrical. Breath sounds diminished to bases. HEART: S1, S2. ABDOMEN: Soft. Bowel tones present. EXTREMITIES: Without cyanosis. Bilateral lower extremities edema, erythema and some drainage. ASSESSMENT: 1. Acute encephalopathy, likely toxic metabolic. Rule out meningitis. As per report, the patient was functional prior to admission to the hospital, neurology on case. 2. Bilateral lower extremity cellulitis. 3. Polymicrobial urinary tract infection. 4. Morbid obesity. 5. Probable obstructive sleep apnea. 6. Parkinson's dementia. PLAN: The patient remains hemodynamically stable. Mental status somewhat improving. Continue abx, f/u serology for WNV IgM, continue local wound care, aspiration precautions, f/u neurology rec-s Problems: Consultation Date/Type/Reason Admit Date/Time May 07, 2017 at 15:05 Initial Consult Date 05/08/17 Type of Consultation: ID Referring Provider: ABI GARCIA Exam/Review of Systems Vital Signs Vitals Vital Signs Date Time Temp Pulse Resp B/P Pulse Ox O2 Delivery O2 Flow Rate FiO2 05/13/17 12:53 98.9 76 18 126/59 94 05/13/17 01:03 4.0 05/11/17 23:00 Nasal Cannula 05/11/17 17:52 36 Intake and Output 05/12/17 05/12/17 05/13/17 15:00 23:00 07:00 Intake Total 110 ml 700 ml 530 ml Output Total 700 ml 400 ml Balance 110 ml 0 ml 130 ml Results Result Diagram: 05/13/17 0650 05/13/17 0650 Results 24 hrs Laboratory Tests Test 05/13/17 06:50 05/13/17 07:32 White Blood Count 9.4 Red Blood Count 3.00 L Hemoglobin 8.2 L Hematocrit 26.9 L Mean Corpuscular Volume 89.7 Mean Corpuscular Hemoglobin 27.3 L Mean Corpuscular Hemoglobin Concent 30.5 L Red Cell Distribution Width 15.2 H Platelet Count 164 Mean Platelet Volume 11.1 H Neutrophils % 65.1 Lymphocytes % 11.8 L Monocytes % 12.9 H Eosinophils % 2.9 Basophils % 0.3 Nucleated Red Blood Cells % 0.2 H Neutrophils # 6.2 Lymphocytes # 1.1 Monocytes # 1.2 H Eosinophils # 0.3 Basophils # 0.0 Nucleated Red Blood Cells # 0.0 Prothrombin Time 14.2 Prothrombin Time Ratio 1.1 INR International Normalized Ratio 1.10 Sodium Level 142 Potassium Level 3.4 L Chloride Level 108 Carbon Dioxide Level 31 Anion Gap 6 L Blood Urea Nitrogen 14 Creatinine 0.74 Glucose Level 95 Calcium Level 8.1 L Lab Scanned Report REFERENCE LAB Medications Medications Current Medications Dextrose/Sodium Chloride (D5-1/2ns) 1,000 ml @ 70 mls/hr [id number] IV Last administered on 05/13/17 05:22; Admin Dose 70 MLS/HR; Start 05/07/17 at 17:26 Ondansetron HCl (Zofran Inj) 4 mg Q6H PRN IV NAUSEA AND/OR VOMITING; Start 05/07/17 at 17:30 Acetaminophen (Tylenol Supp) 650 mg Q4H PRN [place] PAIN LEVEL 1-3 OR FEVER; Start 05/07/17 at 17:30 Morphine Sulfate (morphine) 2 mg Q4H PRN IV PAIN LEVEL 7-10; Start 05/07/17 at 17:30 Enoxaparin Sodium (Lovenox) 30 mg DAILY SC Last administered on 05/13/17 09: 52; Admin Dose 30 MG; Start 05/08/17 at 09:00 Miscellaneous Information (* Miscellaneous Pharmacy Order) PATIENT'S OWN MEDICATI... DAILY XX ; Start 05/09/17 at 09:00 Levothyroxine Sodium (Synthroid) 137 mcg DAILY@06 NGT Last administered on 05/11 06:58; Admin Dose 137 MCG; Start 05/09/17 at 06:00 Allopurinol (Zyloprim) 100 mg DAILY PO Last administered on 05/11/17 08:33; Admin Dose 100 MG; Start 05/08/17 at 18:00 IV Flush 10 ml 10 ml PRN PRN IV IV PROTOCOL; Start 05/08/17 at 17:30 Vancomycin HCl/ Sodium Chloride (Vancocin/NS) 250 ml @ 83.333 mls/ hr Q24H IVPB Last administered on 05/13/17 14:42; Admin Dose 83.333 MLS/HR; Start at 12:00 Lansoprazole (Prevacid) 30 mg DAILY@06 NGT Last administered on 05/12/17 06:19 ; Admin Dose 30 MG; Start 05/12/17 at 06:00 Collagenase (Santyl) 1 applic DAILY TOP Last administered on 05/13/17 14:33; Admin Dose 1 APPLIC; Start 05/13/17 at 09:00 Nystatin 1 applic 1 applic BID TOP Last administered on 05/13/17 09:54; Admin Dose 1 APPLIC; Start 05/12/17 at 21:00 Ceftriaxone Sodium (Rocephin) 50 ml @ 100 mls/hr Q24H IVPB Last administered on 05/12/17 17:07; Admin Dose 100 MLS/HR; Start 05/12/17 at 16:00 Aspirin (Aspirin) 81 mg DAILY PO ; Start 05/13/17 at 09:00 Carbidopa/Levodopa (Sinemet (25/ 100)) 1 tab TID PO ; Start 05/13/17 at 09:00 ANITA LUA NP May 13, 2017 15:04
--- NOTE | 2017-05-13 17:00 | PN ---
Date/Time of Note Date/Time of Note DATE: 05/13/17 TIME: 16:58 Assessment/Plan VTE Prophylaxis VTE Prophylaxis Intervention: SCD's Lines/Catheters IV C[facility]ter Type (from [facility]): Peripheral IV Urinary Cath still in place: Yes Reason Cath still needed: urinary retention Assessment/Plan Chief Complaint/Hosp Course Patient lethargic but responsive to verbal stimuli, past swallow evaluation will start patient on pured diet, pending LP. Assessment/Plan - Acute encephalopathy toxic metabolic - Possible encephalitis, pending LP Dr. Forrest is following in neurology consultation. - Bilateral lower extremity cellulitis. Continue to biotics per ID. Dr. Stephens is following in infectious disease consultation. - Polymicrobial urinary tract infection - Acute kidney injury, resolving. Dr. Cordoba is following in nephrology consultation. Continue IV fluids. Monitor electrolytes. - Acute respiratory insufficiency. Continue breathing treatment and oxygen supplementation. - Chronic obstructive pulmonary disease. - History of hypothyroidism. Continue levothyroxine. - History of peripheral vascular disease with history of vascular interventions. - History of Parkinson disease. Continue Sinemet. - History of osteoarthritis. - History of hyperlipidemia. Further recommendations based on clinical course. Plan of care discussed with Dr. Bonilla. Problems: Exam/Review of Systems Vital Signs Vitals Vital Signs Date Time Temp Pulse Resp B/P Pulse Ox O2 Delivery O2 Flow Rate FiO2 05/13/17 16:00 72 05/13/17 15:43 99.9 19 155/60 92 05/13/17 01:03 4.0 05/11/17 23:00 Nasal Cannula 05/11/17 17:52 36 Intake and Output 05/12/17 05/12/17 05/13/17 15:00 23:00 07:00 Intake Total 110 ml 700 ml 530 ml Output Total 700 ml 400 ml Balance 110 ml 0 ml 130 ml Exam Constitutional: alert, frail Head: normocephalic Neck: supple Respiratory: diminished breath sounds Cardiovascular: nl pulses Gastrointestinal: non-tender, soft Extremities: edema, other (Erythema) Neurological: confused Results Result Diagram: 05/13/17 0650 05/13/17 0650 Results 24 hrs Laboratory Tests Test 05/13/17 06:50 05/13/17 07:32 White Blood Count 9.4 Red Blood Count 3.00 L Hemoglobin 8.2 L Hematocrit 26.9 L Mean Corpuscular Volume 89.7 Mean Corpuscular Hemoglobin 27.3 L Mean Corpuscular Hemoglobin Concent 30.5 L Red Cell Distribution Width 15.2 H Platelet Count 164 Mean Platelet Volume 11.1 H Neutrophils % 65.1 Lymphocytes % 11.8 L Monocytes % 12.9 H Eosinophils % 2.9 Basophils % 0.3 Nucleated Red Blood Cells % 0.2 H Neutrophils # 6.2 Lymphocytes # 1.1 Monocytes # 1.2 H Eosinophils # 0.3 Basophils # 0.0 Nucleated Red Blood Cells # 0.0 Prothrombin Time 14.2 Prothrombin Time Ratio 1.1 INR International Normalized Ratio 1.10 Sodium Level 142 Potassium Level 3.4 L Chloride Level 108 Carbon Dioxide Level 31 Anion Gap 6 L Blood Urea Nitrogen 14 Creatinine 0.74 Glucose Level 95 Calcium Level 8.1 L Lab Scanned Report REFERENCE LAB Medications Medications Current Medications Dextrose/Sodium Chloride (D5-1/2ns) 1,000 ml @ 70 mls/hr [id number] IV Last administered on 05/13/17 05:22; Admin Dose 70 MLS/HR; Start 05/07/17 at 17:26 Ondansetron HCl (Zofran Inj) 4 mg Q6H PRN IV NAUSEA AND/OR VOMITING; Start 05/07/17 at 17:30 Acetaminophen (Tylenol Supp) 650 mg Q4H PRN [place] PAIN LEVEL 1-3 OR FEVER; Start 05/07/17 at 17:30 Morphine Sulfate (morphine) 2 mg Q4H PRN IV PAIN LEVEL 7-10; Start 05/07/17 at 17:30 Enoxaparin Sodium (Lovenox) 30 mg DAILY SC Last administered on 05/13/17 09: 52; Admin Dose 30 MG; Start 05/08/17 at 09:00; Status Future Hold Miscellaneous Information (* Miscellaneous Pharmacy Order) PATIENT'S OWN MEDICATI... DAILY XX ; Start 05/09/17 at 09:00 Levothyroxine Sodium (Synthroid) 137 mcg DAILY@06 NGT Last administered on 05/11 06:58; Admin Dose 137 MCG; Start 05/09/17 at 06:00 Allopurinol (Zyloprim) 100 mg DAILY PO Last administered on 05/11/17 08:33; Admin Dose 100 MG; Start 05/08/17 at 18:00 IV Flush 10 ml 10 ml PRN PRN IV IV PROTOCOL; Start 05/08/17 at 17:30 Vancomycin HCl/ Sodium Chloride (Vancocin/NS) 250 ml @ 83.333 mls/ hr Q24H IVPB Last administered on 05/13/17 14:42; Admin Dose 83.333 MLS/HR; Start at 12:00 Lansoprazole (Prevacid) 30 mg DAILY@06 NGT Last administered on 05/12/17 06:19 ; Admin Dose 30 MG; Start 05/12/17 at 06:00 Collagenase (Santyl) 1 applic DAILY TOP Last administered on 05/13/17 14:33; Admin Dose 1 APPLIC; Start 05/13/17 at 09:00 Nystatin 1 applic 1 applic BID TOP Last administered on 05/13/17 09:54; Admin Dose 1 APPLIC; Start 05/12/17 at 21:00 Ceftriaxone Sodium (Rocephin) 50 ml @ 100 mls/hr Q24H IVPB Last administered on 05/12/17 17:07; Admin Dose 100 MLS/HR; Start 05/12/17 at 16:00 Aspirin (Aspirin) 81 mg DAILY PO ; Start 05/13/17 at 09:00 Carbidopa/Levodopa (Sinemet (25/ 100)) 1 tab TID PO ; Start 05/13/17 at 09:00 ABI GARCIA May 13, 2017 17:00
--- NOTE | 2017-05-13 17:29 | CONS ---
Date/Time of Note Date/Time of Note DATE: 05/13/17 TIME: 17:26 Assessment/Plan Assessment/Plan Additional Assessment/Plan 1. Severe symptomatic bradycardia- improved 2. GUY on possible CKD due to Prerenal azotemia 3. Possible CKD 4. Acute hyperkalemia due to GUY 5.AMs due to acute metabolic encephalopathy and bradycardia 6. H.o CHF 7. H/o HTN 8. h/o hypothyroidism 9/ H/o parkinsonism 10. Hyperuricemia without gout Plan: Cr improved to normal ,K low, will give KCL 20mEQ IV x 1 today ( extra dose) for hypokalemia started on pureed nectar thick diet, will decrease current IVF D51/2NS rate to 50 cc/hr On allopurinol 100mg po daily for hyperuricemia. Renal US showed normal right kidney, left kdiney not seen will continue to follow up Consultation Date/Type/Reason Admit Date/Time May 07, 2017 at 15:05 Initial Consult Date 05/08/17 Type of Consultation: NEPHROLOGY Referring Provider: ABI GARCIA 24 HR Interval Summary Free Text/Dictation on IV abx, Cr improved to normal, on IV Abx Exam/Review of Systems Vital Signs Vitals Vital Signs Date Time Temp Pulse Resp B/P Pulse Ox O2 Delivery O2 Flow Rate FiO2 05/13/17 16:00 72 05/13/17 15:43 99.9 19 155/60 92 05/13/17 01:03 4.0 05/11/17 23:00 Nasal Cannula 05/11/17 17:52 36 Intake and Output 05/12/17 05/12/17 05/13/17 15:00 23:00 07:00 Intake Total 110 ml 700 ml 530 ml Output Total 700 ml 400 ml Balance 110 ml 0 ml 130 ml Exam Constitutional: pt more alert, on telemetry floor Eyes: nl conjunctiva Neck: supple Respiratory: clear to auscultation, diminished breath sounds, normal air movement Cardiovascular: regular rate and rhythm Gastrointestinal: non-tender, soft Musculoskeletal: muscle tone, muscle weakness, nl extremities to inspection, swelling Results Result Diagram: 05/13/17 0650 05/13/17 0650 Results 24 hrs Laboratory Tests Test 05/13/17 06:50 05/13/17 07:32 White Blood Count 9.4 Red Blood Count 3.00 L Hemoglobin 8.2 L Hematocrit 26.9 L Mean Corpuscular Volume 89.7 Mean Corpuscular Hemoglobin 27.3 L Mean Corpuscular Hemoglobin Concent 30.5 L Red Cell Distribution Width 15.2 H Platelet Count 164 Mean Platelet Volume 11.1 H Neutrophils % 65.1 Lymphocytes % 11.8 L Monocytes % 12.9 H Eosinophils % 2.9 Basophils % 0.3 Nucleated Red Blood Cells % 0.2 H Neutrophils # 6.2 Lymphocytes # 1.1 Monocytes # 1.2 H Eosinophils # 0.3 Basophils # 0.0 Nucleated Red Blood Cells # 0.0 Prothrombin Time 14.2 Prothrombin Time Ratio 1.1 INR International Normalized Ratio 1.10 Sodium Level 142 Potassium Level 3.4 L Chloride Level 108 Carbon Dioxide Level 31 Anion Gap 6 L Blood Urea Nitrogen 14 Creatinine 0.74 Glucose Level 95 Calcium Level 8.1 L Lab Scanned Report REFERENCE LAB Medications Medications Current Medications Dextrose/Sodium Chloride (D5-1/2ns) 1,000 ml @ 70 mls/hr [id number] IV Last administered on 05/13/17 05:22; Admin Dose 70 MLS/HR; Start 05/07/17 at 17:26 Ondansetron HCl (Zofran Inj) 4 mg Q6H PRN IV NAUSEA AND/OR VOMITING; Start 05/07/17 at 17:30 Acetaminophen (Tylenol Supp) 650 mg Q4H PRN [place] PAIN LEVEL 1-3 OR FEVER; Start 05/07/17 at 17:30 Morphine Sulfate (morphine) 2 mg Q4H PRN IV PAIN LEVEL 7-10; Start 05/07/17 at 17:30 Enoxaparin Sodium (Lovenox) 30 mg DAILY SC Last administered on 05/13/17 09: 52; Admin Dose 30 MG; Start 05/08/17 at 09:00; Status Future Hold Miscellaneous Information (* Miscellaneous Pharmacy Order) PATIENT'S OWN MEDICATI... DAILY XX ; Start 05/09/17 at 09:00 Levothyroxine Sodium (Synthroid) 137 mcg DAILY@06 NGT Last administered on 05/11 06:58; Admin Dose 137 MCG; Start 05/09/17 at 06:00 Allopurinol (Zyloprim) 100 mg DAILY PO Last administered on 05/11/17 08:33; Admin Dose 100 MG; Start 05/08/17 at 18:00 IV Flush 10 ml 10 ml PRN PRN IV IV PROTOCOL; Start 05/08/17 at 17:30 Vancomycin HCl/ Sodium Chloride (Vancocin/NS) 250 ml @ 83.333 mls/ hr Q24H IVPB Last administered on 05/13/17 14:42; Admin Dose 83.333 MLS/HR; Start at 12:00 Lansoprazole (Prevacid) 30 mg DAILY@06 NGT Last administered on 05/12/17 06:19 ; Admin Dose 30 MG; Start 05/12/17 at 06:00 Collagenase (Santyl) 1 applic DAILY TOP Last administered on 05/13/17 14:33; Admin Dose 1 APPLIC; Start 05/13/17 at 09:00 Nystatin 1 applic 1 applic BID TOP Last administered on 05/13/17 09:54; Admin Dose 1 APPLIC; Start 05/12/17 at 21:00 Ceftriaxone Sodium (Rocephin) 50 ml @ 100 mls/hr Q24H IVPB Last administered on 05/12/17 17:07; Admin Dose 100 MLS/HR; Start 05/12/17 at 16:00 Aspirin (Aspirin) 81 mg DAILY PO ; Start 05/13/17 at 09:00 Carbidopa/Levodopa (Sinemet (25/ 100)) 1 tab TID PO ; Start 05/13/17 at 09:00 ENRIQUETA HUNG MD May 13, 2017 17:29
[2017-05-13] MEDS: CEFTRIAXONE 2 GM/50 ML (PMX) 50 ML IVPB SCH (18:26)
[2017-05-14] VITALS (12 sets, daily range): BP systolic 123–154; BP diastolic 60–89; PULSE 60–82; RESP 17–20
[2017-05-14] MEDS: LEVOTHYROXINE 137 MCG TAB NGT SCH (06:28)
[2017-05-14] MEDS: LANSOPRAZOLE 30 MG CAP NGT SCH (06:28)
[2017-05-14 07:20] LABS: ABNORMAL IP MESSAGE 1; BASOPHIL # 0.1 10^3/ul (0.0-0.1); BASOPHILS % 0.5 % (0.0-2.0); EOSINOPHILS # 0.3 10^3/ul (0.0-0.5); EOSINOPHILS % 2.3 % (0.0-7.0); HEMATOCRIT 27.4 % (37.0-47.0); HEMOGLOBIN 8.5 g/dl (12.0-16.0); LYMPHOCYTES % 8.6 % (15.0-51.0); MEAN CORPUSCULAR HEMOGLOBIN 28.1 pg (29.0-33.0); MEAN CORPUSCULAR VOLUME 90.4 fl (82.0-101.0); MEAN PLATELET VOLUME 11.4 fl (7.4-10.4); MONOCYTE # 1.1 10^3/ul (0.3-0.9); MONOCYTES % 9.6 % (0.0-11.0); NEUTROPHIL # 8.7 10^3/ul (1.6-7.5); NEUTROPHILS % 73.7 % (39.0-77.0); PLATELET COUNT 195 10^3/UL (140-415); RED BLOOD COUNT 3.03 10^6/ul (4.20-5.40); RED CELL DISTRIBUTION WIDTH 14.9 % (11.5-14.5); WHITE BLOOD COUNT 11.8 10^3/ul (4.8-10.8)
[2017-05-14 07:21] LABS: POSITIVE DIFF @See below
[2017-05-14 07:44] LABS: CALCIUM 7.7 mg/dl (8.4-10.2); CREATININE 0.71 mg/dl (0.44-1.00); POTASSIUM 3.4 mmol/L (3.5-5.1)
[2017-05-14] MEDS: NYSTATIN 30 GM POWDER BTL TOP SCH ×2 (09:00→21:59)
[2017-05-14] MEDS: COLLAGENASE 30 GM TUBE TOP SCH (09:00)
[2017-05-14] MEDS: ASPIRIN 81 MG TAB PO SCH (09:00)
[2017-05-14] MEDS: [UNRECOGNIZED DRUG - REMARK] XX SCH (09:00)
[2017-05-14] MEDS ORDERED: POTASSIUM CHLORIDE 20 MEQ in SOD CHLORIDE 0.9% 100 ML IVPB ONE (10:00)
[2017-05-14] MEDS: CARBIDOPA/LEVODOPA (25/100) TAB PO SCH ×3 (10:42→21:59)
[2017-05-14] MEDS: ALLOPURINOL 100 MG TAB PO SCH (10:42)
--- NOTE | 2017-05-14 10:58 | CONS ---
Date/Time of Note Date/Time of Note DATE: 05/14/17 TIME: 10:57 Consult Date/Type/Reason Admit Date/Time May 07, 2017 at 15:05 Initial Consult Date 05/08/17 Type of Consultation: Neurology Reason for Consultation encephalopathy Ordering Provider: ABI GARCIA Subjective remains encephalopathic LP pending to r/o infectious issue Objective Vital Signs Date Time Temp Pulse Resp B/P Pulse Ox O2 Delivery O2 Flow Rate FiO2 05/14/17 08:25 82 05/14/17 07:44 98.3 19 125/60 95 05/14/17 00:10 4.0 05/11/17 23:00 Nasal Cannula 05/11/17 17:52 36 Intake and Output 05/13/17 05/13/17 05/14/17 15:00 23:00 07:00 Intake Total 110 ml 500 ml 720 ml Output Total 550 ml 400 ml Balance 110 ml -50 ml 320 ml Exam awake and alert oriented to self, not to hospital disorganized speech, disoriented says date is May 2020 CN: DAVID, VFF blinks to threat right NLF flattening Motor: anti-gravity in UE, LE only withdraws to noxious in plane of the bed Results/Medications Result Diagram: 05/14/17 0644 05/14/17 0644 Results 24 hrs Laboratory Tests Test 05/14/17 06:44 White Blood Count 11.8 #H Red Blood Count 3.03 L Hemoglobin 8.5 L Hematocrit 27.4 L Mean Corpuscular Volume 90.4 Mean Corpuscular Hemoglobin 28.1 L Mean Corpuscular Hemoglobin Concent 31.0 L Red Cell Distribution Width 14.9 H Platelet Count 195 Mean Platelet Volume 11.4 H Neutrophils % 73.7 Lymphocytes % 8.6 L Monocytes % 9.6 Eosinophils % 2.3 Basophils % 0.5 Nucleated Red Blood Cells % 0.0 Neutrophils # 8.7 H Lymphocytes # 1.0 Monocytes # 1.1 H Eosinophils # 0.3 Basophils # 0.1 Nucleated Red Blood Cells # 0.0 Sodium Level 144 Potassium Level 3.4 L Chloride Level 109 Carbon Dioxide Level 30 Anion Gap 8 Blood Urea Nitrogen 12 Creatinine 0.71 Glucose Level 102 Calcium Level 7.7 L Medications Current Medications Dextrose/Sodium Chloride (D5-1/2ns) 1,000 ml @ 50 mls/hr Q20H IV Last administered on 05/13/17 18:26; Admin Dose 50 MLS/HR; Start 05/07/17 at 17:26 Ondansetron HCl (Zofran Inj) 4 mg Q6H PRN IV NAUSEA AND/OR VOMITING; Start 05/07/17 at 17:30 Acetaminophen (Tylenol Supp) 650 mg Q4H PRN [place] PAIN LEVEL 1-3 OR FEVER Last administered on 05/14/17 06:30; Admin Dose 650 MG; Start 05/07/17 at 17:30 Morphine Sulfate (morphine) 2 mg Q4H PRN IV PAIN LEVEL 7-10; Start 05/07/17 at 17:30 Enoxaparin Sodium (Lovenox) 30 mg DAILY SC Last administered on 05/13/17 09: 52; Admin Dose 30 MG; Start 05/08/17 at 09:00; Status Future Hold Miscellaneous Information (* Miscellaneous Pharmacy Order) PATIENT'S OWN MEDICATI... DAILY XX ; Start 05/09/17 at 09:00 Levothyroxine Sodium (Synthroid) 137 mcg DAILY@06 NGT Last administered on 06:28; Admin Dose 137 MCG; Start 05/09/17 at 06:00 Allopurinol (Zyloprim) 100 mg DAILY PO Last administered on 05/14/17 10:42; Admin Dose 100 MG; Start 05/08/17 at 18:00 IV Flush 10 ml 10 ml PRN PRN IV IV PROTOCOL; Start 05/08/17 at 17:30 Vancomycin HCl/ Sodium Chloride (Vancocin/NS) 250 ml @ 83.333 mls/ hr Q24H IVPB Last administered on 05/13/17 14:42; Admin Dose 83.333 MLS/HR; Start at 12:00 Lansoprazole (Prevacid) 30 mg DAILY@06 NGT Last administered on 05/14/17 06: 28; Admin Dose 30 MG; Start 05/12/17 at 06:00 Collagenase (Santyl) 1 applic DAILY TOP Last administered on 05/14/17 09:00; Admin Dose 1 APPLIC; Start 05/13/17 at 09:00 Nystatin 1 applic 1 applic BID TOP Last administered on 05/14/17 09:00; Admin Dose 1 APPLIC; Start 05/12/17 at 21:00 Ceftriaxone Sodium (Rocephin) 50 ml @ 100 mls/hr Q24H IVPB Last administered on 05/13/17 18:26; Admin Dose 100 MLS/HR; Start 05/12/17 at 16:00 Aspirin (Aspirin) 81 mg DAILY PO ; Start 05/13/17 at 09:00 Carbidopa/ Levodopa 1 tab 1 tab TID PO Last administered on 05/14/17 10:42; Admin Dose 1 TAB; Start 05/13/17 at 09:00 Potassium Chloride/Sodium Chloride (KCl/NS) 110 ml @ 55 mls/hr ONCE ONCE IVPB Last administered on 05/14/17 10:41; Admin Dose 55 MLS/HR; Start 05/14/17 at 10:00; Stop 05/14/17 at 11:59 Potassium Chloride (Klor-Con 20) 20 meq BID PO ; Start 05/14/17 at 21:00 Assessment/Plan Chief Complaint/Hosp Course 77 year old female with CHF, HTN, HLD, Parkinson's, COPD, arthritis admitted with aphasia, bradycardia and hyperkalemia undergoing further w/u admitted to the ICU. MRI Brain w/o contrast: 1. No acute or early subacute ischemic infarction or intracranial hemorrhage. 2. Mild chronic microvascular ischemic changes and age related volume loss. Recommendations: ASA 81 mg daily resume Parkinson's medications if compliant concern for possibly underlying encephalopathy more lethargic agree with plan for LP will send WNV IgG and IgM as well as cultures, encephalitis panel LP pending, will follow up after CSF studies completed Problems: PEGGY MERRITT MD May 14, 2017 10:58
[2017-05-14] MEDS: VANCOMYCIN 1.5 GM in SOD CHLORIDE 0.9% 250 ML IVPB SCH (12:00)
--- NOTE | 2017-05-14 13:11 | PN ---
Date/Time of Note Date/Time of Note DATE: 05/14/17 TIME: 13:10 Assessment/Plan VTE Prophylaxis VTE Prophylaxis Intervention: SCD's Lines/Catheters IV Catheter Type (from Nrs): Peripheral IV Urinary Cath still in place: Yes Reason Cath still needed: urinary retention Assessment/Plan Chief Complaint/Hosp Course Patient lethargic but responsive to verbal stimuli, pending LP. Assessment/Plan - Acute encephalopathy toxic metabolic - Possible encephalitis, pending LP. Dr. Forrest is following in neurology consultation. - Bilateral lower extremity cellulitis. Continue to biotics per ID. Dr. Stephens is following in infectious disease consultation. - Polymicrobial urinary tract infection - Acute kidney injury, resolving. Dr. Cordoba is following in nephrology consultation. Continue IV fluids. Monitor electrolytes. - Acute respiratory insufficiency. Continue breathing treatment and oxygen supplementation. - Chronic obstructive pulmonary disease. - History of hypothyroidism. Continue levothyroxine. - History of peripheral vascular disease with history of vascular interventions. - History of Parkinson disease. Continue Sinemet. - History of osteoarthritis. - History of hyperlipidemia. Further recommendations based on clinical course. Plan of care discussed with Dr. Bonilla. Problems: Exam/Review of Systems Vital Signs Vitals Vital Signs Date Time Temp Pulse Resp B/P Pulse Ox O2 Delivery O2 Flow Rate FiO2 05/14/17 12:30 61 05/14/17 11:22 99.4 19 123/65 98 05/14/17 00:10 4.0 05/11/17 23:00 Nasal Cannula 05/11/17 17:52 36 Intake and Output 05/13/17 05/13/17 05/14/17 15:00 23:00 07:00 Intake Total 110 ml 500 ml 720 ml Output Total 550 ml 400 ml Balance 110 ml -50 ml 320 ml Exam Constitutional: alert, frail Head: normocephalic Neck: supple Respiratory: diminished breath sounds Cardiovascular: nl pulses Gastrointestinal: non-tender, soft Extremities: edema, other (Erythema) Neurological: confused Results Result Diagram: 05/14/17 0644 05/14/17 0644 Results 24 hrs Laboratory Tests Test 05/14/17 06:44 White Blood Count 11.8 #H Red Blood Count 3.03 L Hemoglobin 8.5 L Hematocrit 27.4 L Mean Corpuscular Volume 90.4 Mean Corpuscular Hemoglobin 28.1 L Mean Corpuscular Hemoglobin Concent 31.0 L Red Cell Distribution Width 14.9 H Platelet Count 195 Mean Platelet Volume 11.4 H Neutrophils % 73.7 Lymphocytes % 8.6 L Monocytes % 9.6 Eosinophils % 2.3 Basophils % 0.5 Nucleated Red Blood Cells % 0.0 Neutrophils # 8.7 H Lymphocytes # 1.0 Monocytes # 1.1 H Eosinophils # 0.3 Basophils # 0.1 Nucleated Red Blood Cells # 0.0 Sodium Level 144 Potassium Level 3.4 L Chloride Level 109 Carbon Dioxide Level 30 Anion Gap 8 Blood Urea Nitrogen 12 Creatinine 0.71 Glucose Level 102 Calcium Level 7.7 L Medications Medications Current Medications Dextrose/Sodium Chloride (D5-1/2ns) 1,000 ml @ 50 mls/hr Q20H IV Last administered on 05/13/17 18:26; Admin Dose 50 MLS/HR; Start 05/07/17 at 17:26 Ondansetron HCl (Zofran Inj) 4 mg Q6H PRN IV NAUSEA AND/OR VOMITING; Start 05/07/17 at 17:30 Acetaminophen (Tylenol Supp) 650 mg Q4H PRN [place] PAIN LEVEL 1-3 OR FEVER Last administered on 05/14/17 06:30; Admin Dose 650 MG; Start 05/07/17 at 17:30 Morphine Sulfate (morphine) 2 mg Q4H PRN IV PAIN LEVEL 7-10; Start 05/07/17 at 17:30 Enoxaparin Sodium (Lovenox) 30 mg DAILY SC Last administered on 05/13/17 09: 52; Admin Dose 30 MG; Start 05/08/17 at 09:00; Status Future Hold Miscellaneous Information (* Miscellaneous Pharmacy Order) PATIENT'S OWN MEDICATI... DAILY XX ; Start 05/09/17 at 09:00 Levothyroxine Sodium (Synthroid) 137 mcg DAILY@06 NGT Last administered on 06:28; Admin Dose 137 MCG; Start 05/09/17 at 06:00 Allopurinol (Zyloprim) 100 mg DAILY PO Last administered on 05/14/17 10:42; Admin Dose 100 MG; Start 05/08/17 at 18:00 IV Flush 10 ml 10 ml PRN PRN IV IV PROTOCOL; Start 05/08/17 at 17:30 Vancomycin HCl/ Sodium Chloride (Vancocin/NS) 250 ml @ 83.333 mls/ hr Q24H IVPB Last administered on 05/13/17 14:42; Admin Dose 83.333 MLS/HR; Start at 12:00 Lansoprazole (Prevacid) 30 mg DAILY@06 NGT Last administered on 05/14/17 06: 28; Admin Dose 30 MG; Start 05/12/17 at 06:00 Collagenase (Santyl) 1 applic DAILY TOP Last administered on 05/14/17 09:00; Admin Dose 1 APPLIC; Start 05/13/17 at 09:00 Nystatin 1 applic 1 applic BID TOP Last administered on 05/14/17 09:00; Admin Dose 1 APPLIC; Start 05/12/17 at 21:00 Ceftriaxone Sodium (Rocephin) 50 ml @ 100 mls/hr Q24H IVPB Last administered on 05/13/17 18:26; Admin Dose 100 MLS/HR; Start 05/12/17 at 16:00 Aspirin (Aspirin) 81 mg DAILY PO ; Start 05/13/17 at 09:00 Carbidopa/Levodopa (Sinemet (25/ 100)) 1 tab TID PO Last administered on 10:42; Admin Dose 1 TAB; Start 05/13/17 at 09:00 Potassium Chloride (Klor-Con 20) 20 meq BID PO ; Start 05/14/17 at 21:00 ABI GARCIA May 14, 2017 13:11
--- NOTE | 2017-05-14 14:59 | CONS ---
Date/Time of Note Date/Time of Note DATE: 05/14/17 TIME: 14:57 Assessment/Plan Assessment/Plan Chief Complaint/Hosp Course IMP: IMPRESSION: 1. Bradycardia, severe in the 20s in the setting of hyperkalemia. Continue to follow with resolution of bradycardia after improvement in hyperkalemia.-no recurrence since improvement in hyperkalemia/ nl tsh 2. Abnormal electrocardiogram with baseline conduction system disease and right bundle branch block.-negative trop x 3/NL EF by echo this admit 3. Hypotension-improved and stable off of anti-hypertensives 4. Hyperkalemia, improved. 5. Renal failure, improved 6. Altered mental state/encephalopathy. 7. Anemia with acidosis. 8. Slurred speech secondary to low cardiac output and bradycardia versus transient ischemic attack/stroke.-remains with ams 9. Fevers REcc: -Tele -serial ecg's -Continue asa -Follow volume status and creatnine closely with renal following -continue abx's and f/u cx data -Rx fevers Problems: Consultation Date/Type/Reason Admit Date/Time May 07, 2017 at 15:05 Initial Consult Date 05/08/17 Type of Consultation: cardiology Reason for Consultation bradycardia Referring Provider: ABI GARCIA Exam/Review of Systems Vital Signs Vitals Vital Signs Date Time Temp Pulse Resp B/P Pulse Ox O2 Delivery O2 Flow Rate FiO2 05/14/17 12:30 61 05/14/17 11:22 99.4 19 123/65 98 05/14/17 00:10 4.0 05/11/17 23:00 Nasal Cannula 05/11/17 17:52 36 Intake and Output 05/13/17 05/13/17 05/14/17 15:00 23:00 07:00 Intake Total 110 ml 500 ml 720 ml Output Total 550 ml 400 ml Balance 110 ml -50 ml 320 ml Exam Review of Systems: CONSTITUTIONAL: No fevers, chills. PULMONARY: No sob CARDIOVASCULAR: No chest pain/palpitations GASTROINTESTINAL: No nausea/vomiting. GENITOURINARY: No hematuria/dysuria. MUSCULOSKELETAL: No myagias/arthalgias. PSYCHIATRIC: The patient denies depression. NEUROLOGIC: No weakness Constitutional: alert, oriented Psych: no complaints Head: normocephalic ENMT: mucosa pink and moist Neck: jvd (9 cm water), supple Respiratory: diminished breath sounds (at basese/b) Cardiovascular: regular rate and rhythm Gastrointestinal: non-tender, soft Musculoskeletal: muscle tone (normal) Extremities: pitting pedal edema (bilateraql) Neurological: other (no focal deficits) Results Result Diagram: 05/14/17 0644 05/14/17 0644 Results 24 hrs Laboratory Tests Test 05/14/17 06:44 White Blood Count 11.8 #H Red Blood Count 3.03 L Hemoglobin 8.5 L Hematocrit 27.4 L Mean Corpuscular Volume 90.4 Mean Corpuscular Hemoglobin 28.1 L Mean Corpuscular Hemoglobin Concent 31.0 L Red Cell Distribution Width 14.9 H Platelet Count 195 Mean Platelet Volume 11.4 H Neutrophils % 73.7 Lymphocytes % 8.6 L Monocytes % 9.6 Eosinophils % 2.3 Basophils % 0.5 Nucleated Red Blood Cells % 0.0 Neutrophils # 8.7 H Lymphocytes # 1.0 Monocytes # 1.1 H Eosinophils # 0.3 Basophils # 0.1 Nucleated Red Blood Cells # 0.0 Sodium Level 144 Potassium Level 3.4 L Chloride Level 109 Carbon Dioxide Level 30 Anion Gap 8 Blood Urea Nitrogen 12 Creatinine 0.71 Glucose Level 102 Calcium Level 7.7 L Medications Medications Current Medications Dextrose/Sodium Chloride (D5-1/2ns) 1,000 ml @ 50 mls/hr Q20H IV Last administered on 05/13/17 18:26; Admin Dose 50 MLS/HR; Start 05/07/17 at 17:26 Ondansetron HCl (Zofran Inj) 4 mg Q6H PRN IV NAUSEA AND/OR VOMITING; Start 05/07/17 at 17:30 Acetaminophen (Tylenol Supp) 650 mg Q4H PRN [place] PAIN LEVEL 1-3 OR FEVER Last administered on 05/14/17 06:30; Admin Dose 650 MG; Start 05/07/17 at 17:30 Morphine Sulfate (morphine) 2 mg Q4H PRN IV PAIN LEVEL 7-10; Start 05/07/17 at 17:30 Enoxaparin Sodium (Lovenox) 30 mg DAILY SC Last administered on 05/13/17 09: 52; Admin Dose 30 MG; Start 05/08/17 at 09:00; Status Future Hold Miscellaneous Information (* Miscellaneous Pharmacy Order) PATIENT'S OWN MEDICATI... DAILY XX ; Start 05/09/17 at 09:00 Levothyroxine Sodium (Synthroid) 137 mcg DAILY@06 NGT Last administered on 06:28; Admin Dose 137 MCG; Start 05/09/17 at 06:00 Allopurinol (Zyloprim) 100 mg DAILY PO Last administered on 05/14/17 10:42; Admin Dose 100 MG; Start 05/08/17 at 18:00 IV Flush 10 ml 10 ml PRN PRN IV IV PROTOCOL; Start 05/08/17 at 17:30 Vancomycin HCl/ Sodium Chloride (Vancocin/NS) 250 ml @ 83.333 mls/ hr Q24H IVPB Last administered on 05/14/17 12:00; Admin Dose 83.333 MLS/HR; Start at 12:00 Lansoprazole (Prevacid) 30 mg DAILY@06 NGT Last administered on 05/14/17 06: 28; Admin Dose 30 MG; Start 05/12/17 at 06:00 Collagenase (Santyl) 1 applic DAILY TOP Last administered on 05/14/17 09:00; Admin Dose 1 APPLIC; Start 05/13/17 at 09:00 Nystatin 1 applic 1 applic BID TOP Last administered on 05/14/17 09:00; Admin Dose 1 APPLIC; Start 05/12/17 at 21:00 Ceftriaxone Sodium (Rocephin) 50 ml @ 100 mls/hr Q24H IVPB Last administered on 05/13/17 18:26; Admin Dose 100 MLS/HR; Start 05/12/17 at 16:00 Aspirin (Aspirin) 81 mg DAILY PO ; Start 05/13/17 at 09:00 Carbidopa/Levodopa (Sinemet (25/ 100)) 1 tab TID PO Last administered on 13:40; Admin Dose 1 TAB; Start 05/13/17 at 09:00 Potassium Chloride (Klor-Con 20) 20 meq BID PO ; Start 05/14/17 at 21:00 Miscellaneous Information (*Rx Drug Level Order Reminder*) VANCOMYCIN TROUGH AT 1100 ONCE ONCE XX ; Start 05/15/17 at 11:00; Stop 05/15/17 at 11:01 RON TORRES May 14, 2017 14:59
[2017-05-14] MEDS: CEFTRIAXONE 2 GM/50 ML (PMX) 50 ML IVPB SCH (16:00)
[2017-05-14] MEDS: DEXTROSE 5%-0.45% NACL 1,000 ML IV SCH (16:01)
--- NOTE | 2017-05-14 19:04 | CONS ---
Date/Time of Note Date/Time of Note DATE: 05/14/17 TIME: 19:03 Assessment/Plan Assessment/Plan Additional Assessment/Plan 1. Severe symptomatic bradycardia- improved 2. GUY on possible CKD due to Prerenal azotemia 3. Possible CKD 4. Acute hyperkalemia due to GUY 5.AMs due to acute metabolic encephalopathy and bradycardia 6. H.o CHF 7. H/o HTN 8. h/o hypothyroidism 9/ H/o parkinsonism 10. Hyperuricemia without gout Plan: Cr improved to normal ,K low, will give KCL 20mEQ IV x 1 today ( extra dose) for hypokalemia . then start KCl 20MEQ PO BID started on pureed nectar thick diet, on VF D51/2NS rate to 50 cc/hr On allopurinol 100mg po daily for hyperuricemia. Renal US showed normal right kidney, left kdiney not seen will continue to follow up Consultation Date/Type/Reason Admit Date/Time May 07, 2017 at 15:05 Initial Consult Date 05/08/17 Type of Consultation: NEPHROLOGY Referring Provider: ABI GARCIA 24 HR Interval Summary Free Text/Dictation Cr stable, K low Exam/Review of Systems Vital Signs Vitals Vital Signs Date Time Temp Pulse Resp B/P Pulse Ox O2 Delivery O2 Flow Rate FiO2 05/14/17 18:01 4.0 05/14/17 16:33 67 05/14/17 15:24 98.9 19 125/89 98 05/11/17 23:00 Nasal Cannula 05/11/17 17:52 36 Intake and Output 05/13/17 05/13/17 05/14/17 15:00 23:00 07:00 Intake Total 110 ml 500 ml 720 ml Output Total 550 ml 400 ml Balance 110 ml -50 ml 320 ml Exam Constitutional: pt more alert, on telemetry floor Eyes: nl conjunctiva Neck: supple Respiratory: clear to auscultation, diminished breath sounds, normal air movement Cardiovascular: regular rate and rhythm Gastrointestinal: non-tender, soft Musculoskeletal: muscle tone, muscle weakness, nl extremities to inspection, swelling Results Result Diagram: 05/14/17 0644 05/14/17 0644 Results 24 hrs Laboratory Tests Test 05/14/17 06:44 White Blood Count 11.8 #H Red Blood Count 3.03 L Hemoglobin 8.5 L Hematocrit 27.4 L Mean Corpuscular Volume 90.4 Mean Corpuscular Hemoglobin 28.1 L Mean Corpuscular Hemoglobin Concent 31.0 L Red Cell Distribution Width 14.9 H Platelet Count 195 Mean Platelet Volume 11.4 H Neutrophils % 73.7 Lymphocytes % 8.6 L Monocytes % 9.6 Eosinophils % 2.3 Basophils % 0.5 Nucleated Red Blood Cells % 0.0 Neutrophils # 8.7 H Lymphocytes # 1.0 Monocytes # 1.1 H Eosinophils # 0.3 Basophils # 0.1 Nucleated Red Blood Cells # 0.0 Sodium Level 144 Potassium Level 3.4 L Chloride Level 109 Carbon Dioxide Level 30 Anion Gap 8 Blood Urea Nitrogen 12 Creatinine 0.71 Glucose Level 102 Calcium Level 7.7 L Medications Medications Current Medications Dextrose/Sodium Chloride (D5-1/2ns) 1,000 ml @ 50 mls/hr Q20H IV Last administered on 05/13/17 18:26; Admin Dose 50 MLS/HR; Start 05/07/17 at 17:26 Ondansetron HCl (Zofran Inj) 4 mg Q6H PRN IV NAUSEA AND/OR VOMITING; Start 05/07/17 at 17:30 Acetaminophen (Tylenol Supp) 650 mg Q4H PRN [place] PAIN LEVEL 1-3 OR FEVER Last administered on 05/14/17 06:30; Admin Dose 650 MG; Start 05/07/17 at 17:30 Morphine Sulfate (morphine) 2 mg Q4H PRN IV PAIN LEVEL 7-10; Start 05/07/17 at 17:30 Enoxaparin Sodium (Lovenox) 30 mg DAILY SC Last administered on 05/13/17 09: 52; Admin Dose 30 MG; Start 05/08/17 at 09:00; Status Future Hold Miscellaneous Information (* Miscellaneous Pharmacy Order) PATIENT'S OWN MEDICATI... DAILY XX ; Start 05/09/17 at 09:00 Levothyroxine Sodium (Synthroid) 137 mcg DAILY@06 NGT Last administered on 06:28; Admin Dose 137 MCG; Start 05/09/17 at 06:00 Allopurinol (Zyloprim) 100 mg DAILY PO Last administered on 05/14/17 10:42; Admin Dose 100 MG; Start 05/08/17 at 18:00 IV Flush 10 ml 10 ml PRN PRN IV IV PROTOCOL; Start 05/08/17 at 17:30 Vancomycin HCl/ Sodium Chloride (Vancocin/NS) 250 ml @ 83.333 mls/ hr Q24H IVPB Last administered on 05/14/17 12:00; Admin Dose 83.333 MLS/HR; Start at 12:00 Lansoprazole (Prevacid) 30 mg DAILY@06 NGT Last administered on 05/14/17 06: 28; Admin Dose 30 MG; Start 05/12/17 at 06:00 Collagenase (Santyl) 1 applic DAILY TOP Last administered on 05/14/17 09:00; Admin Dose 1 APPLIC; Start 05/13/17 at 09:00 Nystatin 1 applic 1 applic BID TOP Last administered on 05/14/17 09:00; Admin Dose 1 APPLIC; Start 05/12/17 at 21:00 Ceftriaxone Sodium (Rocephin) 50 ml @ 100 mls/hr Q24H IVPB Last administered on 05/14/17 16:00; Admin Dose 100 MLS/HR; Start 05/12/17 at 16:00 Aspirin (Aspirin) 81 mg DAILY PO ; Start 05/13/17 at 09:00 Carbidopa/Levodopa (Sinemet (25/ 100)) 1 tab TID PO Last administered on 13:40; Admin Dose 1 TAB; Start 05/13/17 at 09:00 Potassium Chloride (Klor-Con 20) 20 meq BID PO ; Start 05/14/17 at 21:00 Miscellaneous Information (*Rx Drug Level Order Reminder*) VANCOMYCIN TROUGH AT 1100 ONCE ONCE XX ; Start 05/15/17 at 11:00; Stop 05/15/17 at 11:01 ENRIQUETA HUNG MD May 14, 2017 19:04
[2017-05-14] MEDS: ALBUTEROL 0.083% (NEB) 2.5 MG/3 ML AMP NEB PRN (20:13)
[2017-05-14] MEDS: POTASSIUM CHLORIDE (SR) 20 MEQ TAB PO SCH (21:59)
--- NOTE | 2017-05-14 22:10 | CONS ---
Date/Time of Note Date/Time of Note DATE: 05/14/17 TIME: 22:09 Assessment/Plan Assessment/Plan Chief Complaint/Hosp Course SUBJECTIVE: No acute events, lethargic, arousable, afebrile Urine culture on admission grew Klebsiella pneumoniae and Streptococcal agalactiae, LE wound cx + Enterococcus and staph species. ANTIMICROBIALS: 1. Vancomycin. 2. Rocephin. INDWELLINGS: Cabrera catheter and PICC line. PHYSICAL EXAMINATION: GENERAL: Morbidly obese elderly woman who is lethargic, in no distress. HEENT: Head atraumatic, normocephalic. Sclerae anicteric. Buccal mucosa dry. NECK: Obese. CHEST: Rise symmetrical. Breath sounds diminished to bases. HEART: S1, S2. ABDOMEN: Soft. Bowel tones present. EXTREMITIES: Without cyanosis. Bilateral lower extremities edema, erythema and some drainage. ASSESSMENT: 1. Acute encephalopathy, likely toxic metabolic. Rule out meningitis. As per report, the patient was functional prior to admission to the hospital, neurology on case. 2. Bilateral lower extremity cellulitis. 3. Polymicrobial urinary tract infection. 4. Morbid obesity. 5. Probable obstructive sleep apnea. 6. Parkinson's dementia. PLAN: The patient remains stable. Mental status slowly improving. Continue abx, f/u serology for WNV IgM, neurology rec-s, pending LP, aspiration precautions Problems: Consultation Date/Type/Reason Admit Date/Time May 07, 2017 at 15:05 Initial Consult Date 05/08/17 Type of Consultation: ID Referring Provider: ABI GARCIA Exam/Review of Systems Vital Signs Vitals Vital Signs Date Time Temp Pulse Resp B/P Pulse Ox O2 Delivery O2 Flow Rate FiO2 05/14/17 20:16 72 26 Nasal Cannula 4.0 36 05/14/17 20:00 98.6 123/60 93 Intake and Output 05/13/17 05/13/17 05/14/17 15:00 23:00 07:00 Intake Total 110 ml 500 ml 720 ml Output Total 550 ml 400 ml Balance 110 ml -50 ml 320 ml Results Result Diagram: 05/14/17 0644 05/14/17 0644 Results 24 hrs Laboratory Tests Test 05/14/17 06:44 White Blood Count 11.8 #H Red Blood Count 3.03 L Hemoglobin 8.5 L Hematocrit 27.4 L Mean Corpuscular Volume 90.4 Mean Corpuscular Hemoglobin 28.1 L Mean Corpuscular Hemoglobin Concent 31.0 L Red Cell Distribution Width 14.9 H Platelet Count 195 Mean Platelet Volume 11.4 H Neutrophils % 73.7 Lymphocytes % 8.6 L Monocytes % 9.6 Eosinophils % 2.3 Basophils % 0.5 Nucleated Red Blood Cells % 0.0 Neutrophils # 8.7 H Lymphocytes # 1.0 Monocytes # 1.1 H Eosinophils # 0.3 Basophils # 0.1 Nucleated Red Blood Cells # 0.0 Sodium Level 144 Potassium Level 3.4 L Chloride Level 109 Carbon Dioxide Level 30 Anion Gap 8 Blood Urea Nitrogen 12 Creatinine 0.71 Glucose Level 102 Calcium Level 7.7 L Medications Medications Current Medications Dextrose/Sodium Chloride (D5-1/2ns) 1,000 ml @ 50 mls/hr Q20H IV Last administered on 05/13/17 18:26; Admin Dose 50 MLS/HR; Start 05/07/17 at 17:26 Ondansetron HCl (Zofran Inj) 4 mg Q6H PRN IV NAUSEA AND/OR VOMITING; Start 05/07/17 at 17:30 Acetaminophen (Tylenol Supp) 650 mg Q4H PRN [place] PAIN LEVEL 1-3 OR FEVER Last administered on 05/14/17 06:30; Admin Dose 650 MG; Start 05/07/17 at 17:30 Morphine Sulfate (morphine) 2 mg Q4H PRN IV PAIN LEVEL 7-10; Start 05/07/17 at 17:30 Enoxaparin Sodium (Lovenox) 30 mg DAILY SC Last administered on 05/13/17 09: 52; Admin Dose 30 MG; Start 05/08/17 at 09:00; Status Future Hold Miscellaneous Information (* Miscellaneous Pharmacy Order) PATIENT'S OWN MEDICATI... DAILY XX ; Start 05/09/17 at 09:00 Levothyroxine Sodium (Synthroid) 137 mcg DAILY@06 NGT Last administered on 06:28; Admin Dose 137 MCG; Start 05/09/17 at 06:00 Allopurinol (Zyloprim) 100 mg DAILY PO Last administered on 05/14/17 10:42; Admin Dose 100 MG; Start 05/08/17 at 18:00 IV Flush 10 ml 10 ml PRN PRN IV IV PROTOCOL; Start 05/08/17 at 17:30 Vancomycin HCl/ Sodium Chloride (Vancocin/NS) 250 ml @ 83.333 mls/ hr Q24H IVPB Last administered on 05/14/17 12:00; Admin Dose 83.333 MLS/HR; Start at 12:00 Lansoprazole (Prevacid) 30 mg DAILY@06 NGT Last administered on 05/14/17 06: 28; Admin Dose 30 MG; Start 05/12/17 at 06:00 Collagenase (Santyl) 1 applic DAILY TOP Last administered on 05/14/17 09:00; Admin Dose 1 APPLIC; Start 05/13/17 at 09:00 Nystatin 1 applic 1 applic BID TOP Last administered on 05/14/17 21:59; Admin Dose 1 APPLIC; Start 05/12/17 at 21:00 Ceftriaxone Sodium (Rocephin) 50 ml @ 100 mls/hr Q24H IVPB Last administered on 05/14/17 16:00; Admin Dose 100 MLS/HR; Start 05/12/17 at 16:00 Aspirin (Aspirin) 81 mg DAILY PO ; Start 05/13/17 at 09:00 Carbidopa/Levodopa (Sinemet (25/ 100)) 1 tab TID PO Last administered on 21:59; Admin Dose 1 TAB; Start 05/13/17 at 09:00 Potassium Chloride (Klor-Con 20) 20 meq BID PO Last administered on 05/14/17 21:59; Admin Dose 20 MEQ; Start 05/14/17 at 21:00 Miscellaneous Information (*Rx Drug Level Order Reminder*) VANCOMYCIN TROUGH AT 1100 ONCE ONCE XX ; Start 05/15/17 at 11:00; Stop 05/15/17 at 11:01 ANITA LUA NP May 14, 2017 22:10
[2017-05-15] VITALS (15 sets, daily range): BP systolic 120–167; BP diastolic 58–91; PULSE 58–91; RESP 18–20
[2017-05-15] MEDS: LANSOPRAZOLE 30 MG CAP NGT SCH (06:00)
[2017-05-15] MEDS: LEVOTHYROXINE 137 MCG TAB NGT SCH (06:00)
[2017-05-15 06:58] LABS: BASOPHILS % 0.4 % (0.0-2.0); EOSINOPHILS # 0.4 10^3/ul (0.0-0.5); EOSINOPHILS % 3.3 % (0.0-7.0); HEMATOCRIT 26.7 % (37.0-47.0); HEMOGLOBIN 8.1 g/dl (12.0-16.0); LYMPHOCYTES # 1.2 10^3/ul (0.8-2.9); LYMPHOCYTES % 11.4 % (15.0-51.0); MEAN CORPUSCULAR HEMOGLOBIN 27.6 pg (29.0-33.0); MEAN CORPUSCULAR HGB CONC 30.3 g/dl (32.0-37.0); MEAN CORPUSCULAR VOLUME 91.1 fl (82.0-101.0); MEAN PLATELET VOLUME 11.1 fl (7.4-10.4); MONOCYTES % 9.4 % (0.0-11.0); NEUTROPHIL # 7.6 10^3/ul (1.6-7.5); PLATELET COUNT 226 10^3/UL (140-415); RED BLOOD COUNT 2.93 10^6/ul (4.20-5.40); WHITE BLOOD COUNT 10.7 10^3/ul (4.8-10.8)
[2017-05-15 07:15] LABS: CALCIUM 8.1 mg/dl (8.4-10.2); CREATININE 0.73 mg/dl (0.44-1.00); POTASSIUM 3.5 mmol/L (3.5-5.1)
[2017-05-15] MEDS: CARBIDOPA/LEVODOPA (25/100) TAB PO SCH ×3 (09:00→21:00)
[2017-05-15] MEDS: POTASSIUM CHLORIDE (SR) 20 MEQ TAB PO SCH ×2 (09:00→21:00)
[2017-05-15] MEDS: [UNRECOGNIZED DRUG - REMARK] XX SCH (09:00)
[2017-05-15] MEDS: NYSTATIN 30 GM POWDER BTL TOP SCH ×2 (09:00→21:00)
[2017-05-15] MEDS: ALLOPURINOL 100 MG TAB PO SCH (09:00)
[2017-05-15] MEDS: ASPIRIN 81 MG TAB PO SCH (09:00)
[2017-05-15] MEDS: COLLAGENASE 30 GM TUBE TOP SCH (09:00)
--- NOTE | 2017-05-15 11:49 | CONS ---
Date/Time of Note Date/Time of Note DATE: 05/15/17 TIME: 11:46 Assessment/Plan Assessment/Plan Additional Assessment/Plan 1. Severe symptomatic bradycardia- improved 2. GUY on possible CKD due to Prerenal azotemia 3. Possible CKD 4. Acute hyperkalemia due to GUY 5.AMs due to acute metabolic encephalopathy and bradycardia 6. H.o CHF 7. H/o HTN 8. h/o hypothyroidism 9/ H/o parkinsonism 10. Hyperuricemia without gout Plan: Cr improved to normal ,K 3.5 today , continue KCl 20MEQ PO BID started on pureed nectar thick diet, pt refused to eat today- so we will continue IVF D51/2NS rate to 50 cc/hr - tomorrow we will reassess her in AM to discontinue IVF On allopurinol 100mg po daily for hyperuricemia. Renal US showed normal right kidney, left kdiney not seen will continue to follow up Consultation Date/Type/Reason Admit Date/Time May 07, 2017 at 15:05 Initial Consult Date 05/08/17 Type of Consultation: NEPHROLOGY Referring Provider: ABI GARCIA 24 HR Interval Summary Free Text/Dictation no acute events, BP stable, afebrile Exam/Review of Systems Vital Signs Vitals Vital Signs Date Time Temp Pulse Resp B/P Pulse Ox O2 Delivery O2 Flow Rate FiO2 05/15/17 08:00 75 05/15/17 07:22 99.8 19 157/87 95 05/15/17 04:12 2.0 05/14/17 20:16 Nasal Cannula 36 Intake and Output 05/14/17 05/14/17 05/15/17 15:00 23:00 07:00 Intake Total 690 ml Output Total 500 ml Balance 190 ml Exam Constitutional: pt more alert, on telemetry floor Eyes: nl conjunctiva Neck: supple Respiratory: clear to auscultation, diminished breath sounds, normal air movement Cardiovascular: regular rate and rhythm Gastrointestinal: non-tender, soft Musculoskeletal: muscle tone, muscle weakness, nl extremities to inspection, swelling Results Result Diagram: 05/15/17 0638 05/15/17 0638 Results 24 hrs Laboratory Tests Test 05/15/17 06:38 05/15/17 10:48 White Blood Count 10.7 Red Blood Count 2.93 L Hemoglobin 8.1 L Hematocrit 26.7 L Mean Corpuscular Volume 91.1 Mean Corpuscular Hemoglobin 27.6 L Mean Corpuscular Hemoglobin Concent 30.3 L Red Cell Distribution Width 15.0 H Platelet Count 226 Mean Platelet Volume 11.1 H Neutrophils % 71.0 Lymphocytes % 11.4 L Monocytes % 9.4 Eosinophils % 3.3 Basophils % 0.4 Nucleated Red Blood Cells % 0.0 Neutrophils # 7.6 H Lymphocytes # 1.2 Monocytes # 1.0 H Eosinophils # 0.4 Basophils # 0.0 Nucleated Red Blood Cells # 0.0 Sodium Level 144 Potassium Level 3.5 Chloride Level 109 Carbon Dioxide Level 32 H Anion Gap 7 L Blood Urea Nitrogen 12 Creatinine 0.73 Glucose Level 116 Calcium Level 8.1 L Free Thyroxine 0.98 Random Cortisol 13.1 Vancomycin Level Trough 9.6 L Medications Medications Current Medications Dextrose/Sodium Chloride (D5-1/2ns) 1,000 ml @ 50 mls/hr Q20H IV Last administered on 05/13/17 18:26; Admin Dose 50 MLS/HR; Start 05/07/17 at 17:26 Ondansetron HCl (Zofran Inj) 4 mg Q6H PRN IV NAUSEA AND/OR VOMITING; Start 05/07/17 at 17:30 Acetaminophen (Tylenol Supp) 650 mg Q4H PRN [place] PAIN LEVEL 1-3 OR FEVER Last administered on 05/14/17 06:30; Admin Dose 650 MG; Start 05/07/17 at 17:30 Morphine Sulfate (morphine) 2 mg Q4H PRN IV PAIN LEVEL 7-10; Start 05/07/17 at 17:30 Enoxaparin Sodium (Lovenox) 30 mg DAILY SC Last administered on 05/13/17 09: 52; Admin Dose 30 MG; Start 05/08/17 at 09:00; Status Future Hold Miscellaneous Information (* Miscellaneous Pharmacy Order) PATIENT'S OWN MEDICATI... DAILY XX ; Start 05/09/17 at 09:00 Levothyroxine Sodium (Synthroid) 137 mcg DAILY@06 NGT Last administered on 06:00; Admin Dose 137 MCG; Start 05/09/17 at 06:00 Allopurinol (Zyloprim) 100 mg DAILY PO Last administered on 05/14/17 10:42; Admin Dose 100 MG; Start 05/08/17 at 18:00 IV Flush 10 ml 10 ml PRN PRN IV IV PROTOCOL; Start 05/08/17 at 17:30 Vancomycin HCl/ Sodium Chloride (Vancocin/NS) 250 ml @ 83.333 mls/ hr Q24H IVPB Last administered on 05/14/17 12:00; Admin Dose 83.333 MLS/HR; Start at 12:00 Lansoprazole (Prevacid) 30 mg DAILY@06 NGT Last administered on 05/15/17 06: 00; Admin Dose 30 MG; Start 05/12/17 at 06:00 Collagenase (Santyl) 1 applic DAILY TOP Last administered on 05/14/17 09:00; Admin Dose 1 APPLIC; Start 05/13/17 at 09:00 Nystatin 1 applic 1 applic BID TOP Last administered on 05/14/17 21:59; Admin Dose 1 APPLIC; Start 05/12/17 at 21:00 Ceftriaxone Sodium (Rocephin) 50 ml @ 100 mls/hr Q24H IVPB Last administered on 05/14/17 16:00; Admin Dose 100 MLS/HR; Start 05/12/17 at 16:00 Aspirin (Aspirin) 81 mg DAILY PO ; Start 05/13/17 at 09:00 Carbidopa/Levodopa (Sinemet (25/ 100)) 1 tab TID PO Last administered on 21:59; Admin Dose 1 TAB; Start 05/13/17 at 09:00 Potassium Chloride (Klor-Con 20) 20 meq BID PO Last administered on 05/14/17 21:59; Admin Dose 20 MEQ; Start 05/14/17 at 21:00 ENRIQUETA HUNG MD May 15, 2017 11:48
[2017-05-15] MEDS: DEXTROSE 5%-0.45% NACL 1,000 ML IV SCH ×2 (12:01→18:35)
--- NOTE | 2017-05-15 12:01 | CONS ---
Date/Time of Note Date/Time of Note DATE: 05/15/17 TIME: 12:00 Consult Date/Type/Reason Admit Date/Time May 07, 2017 at 15:05 Initial Consult Date 05/08/17 Type of Consultation: Neurology Reason for Consultation encephalopathy worsening in mental status Ordering Provider: ABI GARCIA Subjective agitated laying in bed clothes off unable to tolerate LP due to agitation refused PO meds this am Objective Vital Signs Date Time Temp Pulse Resp B/P Pulse Ox O2 Delivery O2 Flow Rate FiO2 05/15/17 08:00 75 05/15/17 07:22 99.8 19 157/87 95 05/15/17 04:12 2.0 05/14/17 20:16 Nasal Cannula 36 Intake and Output 05/14/17 05/14/17 05/15/17 15:00 23:00 07:00 Intake Total 690 ml Output Total 500 ml Balance 190 ml Exam agitated unable to appropriately assess uncooperative w exam disoriented, disheveled appearance diffuse rigidity in extremities increased tone cogwheeling Results/Medications Result Diagram: 05/15/17 0638 05/15/17 0638 Results 24 hrs Laboratory Tests Test 05/15/17 06:38 05/15/17 10:48 White Blood Count 10.7 Red Blood Count 2.93 L Hemoglobin 8.1 L Hematocrit 26.7 L Mean Corpuscular Volume 91.1 Mean Corpuscular Hemoglobin 27.6 L Mean Corpuscular Hemoglobin Concent 30.3 L Red Cell Distribution Width 15.0 H Platelet Count 226 Mean Platelet Volume 11.1 H Neutrophils % 71.0 Lymphocytes % 11.4 L Monocytes % 9.4 Eosinophils % 3.3 Basophils % 0.4 Nucleated Red Blood Cells % 0.0 Neutrophils # 7.6 H Lymphocytes # 1.2 Monocytes # 1.0 H Eosinophils # 0.4 Basophils # 0.0 Nucleated Red Blood Cells # 0.0 Sodium Level 144 Potassium Level 3.5 Chloride Level 109 Carbon Dioxide Level 32 H Anion Gap 7 L Blood Urea Nitrogen 12 Creatinine 0.73 Glucose Level 116 Calcium Level 8.1 L Free Thyroxine 0.98 Random Cortisol 13.1 Vancomycin Level Trough 9.6 L Medications Current Medications Dextrose/Sodium Chloride (D5-1/2ns) 1,000 ml @ 50 mls/hr Q20H IV Last administered on 05/13/17t 18:26; Admin Dose 50 MLS/HR; Start 05/07/17 at 17:26 Ondansetron HCl (Zofran Inj) 4 mg Q6H PRN IV NAUSEA AND/OR VOMITING; Start 05/07/17 at 17:30 Acetaminophen (Tylenol Supp) 650 mg Q4H PRN [place] PAIN LEVEL 1-3 OR FEVER Last administered on 05/14/17 06:30; Admin Dose 650 MG; Start 05/07/17 at 17:30 Morphine Sulfate (morphine) 2 mg Q4H PRN IV PAIN LEVEL 7-10; Start 05/07/17 at 17:30 Enoxaparin Sodium (Lovenox) 30 mg DAILY SC Last administered on 05/13/17 09: 52; Admin Dose 30 MG; Start 05/08/17 at 09:00; Status Future Hold Miscellaneous Information (* Miscellaneous Pharmacy Order) PATIENT'S OWN MEDICATI... DAILY XX ; Start 05/09/17 at 09:00 Levothyroxine Sodium (Synthroid) 137 mcg DAILY@06 NGT Last administered on 06:00; Admin Dose 137 MCG; Start 05/09/17 at 06:00 Allopurinol (Zyloprim) 100 mg DAILY PO Last administered on 05/14/17 10:42; Admin Dose 100 MG; Start 05/08/17 at 18:00 IV Flush 10 ml 10 ml PRN PRN IV IV PROTOCOL; Start 05/08/17 at 17:30 Vancomycin HCl/ Sodium Chloride (Vancocin/NS) 250 ml @ 83.333 mls/ hr Q24H IVPB Last administered on 05/14/17 12:00; Admin Dose 83.333 MLS/HR; Start at 12:00 Lansoprazole (Prevacid) 30 mg DAILY@06 NGT Last administered on 05/15/17 06: 00; Admin Dose 30 MG; Start 05/12/17 at 06:00 Collagenase (Santyl) 1 applic DAILY TOP Last administered on 05/14/17 09:00; Admin Dose 1 APPLIC; Start 05/13/17 at 09:00 Nystatin 1 applic 1 applic BID TOP Last administered on 05/14/17 21:59; Admin Dose 1 APPLIC; Start 05/12/17 at 21:00 Ceftriaxone Sodium (Rocephin) 50 ml @ 100 mls/hr Q24H IVPB Last administered on 05/14/17 16:00; Admin Dose 100 MLS/HR; Start 05/12/17 at 16:00 Aspirin (Aspirin) 81 mg DAILY PO ; Start 05/13/17 at 09:00 Carbidopa/Levodopa (Sinemet (25/ 100)) 1 tab TID PO Last administered on 21:59; Admin Dose 1 TAB; Start 05/13/17 at 09:00 Potassium Chloride (Klor-Con 20) 20 meq BID PO Last administered on 05/14/17 21:59; Admin Dose 20 MEQ; Start 05/14/17 at 21:00 Assessment/Plan Chief Complaint/Hosp Course 77 year old female with CHF, HTN, HLD, Parkinson's, COPD, arthritis admitted with aphasia, bradycardia and hyperkalemia undergoing further w/u admitted to the ICU. MRI Brain w/o contrast: 1. No acute or early subacute ischemic infarction or intracranial hemorrhage. 2. Mild chronic microvascular ischemic changes and age related volume loss. Recommendations: ASA 81 mg daily resumed Parkinson's medications concern for possibly underlying encephalopathy unfortunately she was unable to tolerate LP due to severe agitation possible delirium and worsening of baseline dementia Problems: PEGGY MERRITT MD May 15, 2017 12:01
[2017-05-15] MEDS: VANCOMYCIN 1.5 GM in SOD CHLORIDE 0.9% 250 ML IVPB SCH (12:58)
--- NOTE | 2017-05-15 13:23 | CONS ---
Date/Time of Note Date/Time of Note DATE: 05/15/17 TIME: 13:15 Assessment/Plan Assessment/Plan Chief Complaint/Hosp Course IMP: IMPRESSION: 1. Bradycardia, severe in the 20s in the setting of hyperkalemia. Continue to follow with resolution of bradycardia after improvement in hyperkalemia.-no recurrence since improvement in hyperkalemia/ nl tsh 2. Abnormal electrocardiogram with baseline conduction system disease and right bundle branch block.-negative trop x 3/NL EF by echo this admit 3. Hypotension-improved and stable off of anti-hypertensives 4. Hyperkalemia, improved. 5. Renal failure, improved 6. Altered mental state/encephalopathy-ongoing with agitation requiring restraints 7. Anemia with acidosis. 8. Slurred speech secondary to low cardiac output and bradycardia versus transient ischemic attack/stroke.-remains with ams 9. Fevers 10. HTN-? relation to agitation/confusion REcc: -Tele -serial ecg's -Continue asa -Follow volume status and creatnine closely with renal following -continue abx's and f/u cx data -Rx fevers -Ongoing neuro eval of encephalopathy with possible pnding LP -PRN hydralazine IVP and clonidine TTS low dose Problems: Consultation Date/Type/Reason Admit Date/Time May 07, 2017 at 15:05 Initial Consult Date 05/08/17 Type of Consultation: cardiology Reason for Consultation BRadycardia Referring Provider: ABI GARCIA Exam/Review of Systems Vital Signs Vitals Vital Signs Date Time Temp Pulse Resp B/P Pulse Ox O2 Delivery O2 Flow Rate FiO2 05/15/17 13:03 99.5 91 167/91 96 Nasal Cannula 2.0 05/15/17 07:22 19 05/14/17 20:16 36 Intake and Output 05/14/17 05/14/17 05/15/17 15:00 23:00 07:00 Intake Total 690 ml Output Total 500 ml Balance 190 ml Exam Review of Systems: CONSTITUTIONAL: No fevers, chills. PULMONARY: No sob CARDIOVASCULAR: No chest pain/palpitations GASTROINTESTINAL: No nausea/vomiting. GENITOURINARY: No hematuria/dysuria. MUSCULOSKELETAL: No myagias/arthalgias. PSYCHIATRIC: The patient denies depression. NEUROLOGIC: No weakness Constitutional: other (encephalopathic) Psych: no complaints Head: normocephalic ENMT: mucosa pink and moist Neck: jvd (9 cm water), supple Respiratory: diminished breath sounds (at bases/B) Cardiovascular: regular rate and rhythm Gastrointestinal: non-tender, soft Musculoskeletal: muscle weakness Extremities: pitting pedal edema Neurological: other (lethargic) Results Result Diagram: 05/15/17 0638 05/15/17 0638 Results 24 hrs Laboratory Tests Test 05/15/17 06:38 05/15/17 10:48 White Blood Count 10.7 Red Blood Count 2.93 L Hemoglobin 8.1 L Hematocrit 26.7 L Mean Corpuscular Volume 91.1 Mean Corpuscular Hemoglobin 27.6 L Mean Corpuscular Hemoglobin Concent 30.3 L Red Cell Distribution Width 15.0 H Platelet Count 226 Mean Platelet Volume 11.1 H Neutrophils % 71.0 Lymphocytes % 11.4 L Monocytes % 9.4 Eosinophils % 3.3 Basophils % 0.4 Nucleated Red Blood Cells % 0.0 Neutrophils # 7.6 H Lymphocytes # 1.2 Monocytes # 1.0 H Eosinophils # 0.4 Basophils # 0.0 Nucleated Red Blood Cells # 0.0 Sodium Level 144 Potassium Level 3.5 Chloride Level 109 Carbon Dioxide Level 32 H Anion Gap 7 L Blood Urea Nitrogen 12 Creatinine 0.73 Glucose Level 116 Calcium Level 8.1 L Free Thyroxine 0.98 Random Cortisol 13.1 Vancomycin Level Trough 9.6 L Medications Medications Current Medications Dextrose/Sodium Chloride (D5-1/2ns) 1,000 ml @ 50 mls/hr Q20H IV Last administered on 05/13/17 18:26; Admin Dose 50 MLS/HR; Start 05/07/17 at 17:26 Ondansetron HCl (Zofran Inj) 4 mg Q6H PRN IV NAUSEA AND/OR VOMITING; Start 05/07/17 at 17:30 Acetaminophen (Tylenol Supp) 650 mg Q4H PRN [place] PAIN LEVEL 1-3 OR FEVER Last administered on 05/14/17 06:30; Admin Dose 650 MG; Start 05/07/17 at 17:30 Morphine Sulfate (morphine) 2 mg Q4H PRN IV PAIN LEVEL 7-10; Start 05/07/17 at 17:30 Enoxaparin Sodium (Lovenox) 30 mg DAILY SC Last administered on 05/13/17 09: 52; Admin Dose 30 MG; Start 05/08/17 at 09:00; Status Future Hold Miscellaneous Information (* Miscellaneous Pharmacy Order) PATIENT'S OWN MEDICATI... DAILY XX ; Start 05/09/17 at 09:00 Levothyroxine Sodium (Synthroid) 137 mcg DAILY@06 NGT Last administered on 06:00; Admin Dose 137 MCG; Start 05/09/17 at 06:00 Allopurinol (Zyloprim) 100 mg DAILY PO Last administered on 05/14/17 10:42; Admin Dose 100 MG; Start 05/08/17 at 18:00 IV Flush 10 ml 10 ml PRN PRN IV IV PROTOCOL; Start 05/08/17 at 17:30 Vancomycin HCl/ Sodium Chloride (Vancocin/NS) 250 ml @ 83.333 mls/ hr Q24H IVPB Last administered on 05/15/17 12:58; Admin Dose 83.333 MLS/HR; Start at 12:00 Lansoprazole (Prevacid) 30 mg DAILY@06 NGT Last administered on 05/15/17 06: 00; Admin Dose 30 MG; Start 05/12/17 at 06:00 Collagenase (Santyl) 1 applic DAILY TOP Last administered on 05/14/17 09:00; Admin Dose 1 APPLIC; Start 05/13/17 at 09:00 Nystatin 1 applic 1 applic BID TOP Last administered on 05/14/17 21:59; Admin Dose 1 APPLIC; Start 05/12/17 at 21:00 Ceftriaxone Sodium (Rocephin) 50 ml @ 100 mls/hr Q24H IVPB Last administered on 05/14/17 16:00; Admin Dose 100 MLS/HR; Start 05/12/17 at 16:00 Aspirin (Aspirin) 81 mg DAILY PO ; Start 05/13/17 at 09:00 Carbidopa/Levodopa (Sinemet (25/ 100)) 1 tab TID PO Last administered on 21:59; Admin Dose 1 TAB; Start 05/13/17 at 09:00 Potassium Chloride (Klor-Con 20) 20 meq BID PO Last administered on 05/14/17 21:59; Admin Dose 20 MEQ; Start 05/14/17 at 21:00 RON TORRES May 15, 2017 13:23
--- NOTE | 2017-05-15 13:28 | RADRPT ---
Vent Rate: 73 bpm RR Interval: 0 msec [place] Interval: 198 msec QRS Duration: 124 msec QT Interval: 378 msec QTC Interval: 416 msec P-R-T Logan: 54 - -31 - 55 degrees Normal sinus rhythm with sinus arrhythmia Left axis deviation Abnormal ECG Electronically Signed By: Mario Neumann [id number]
[2017-05-15] MEDS ORDERED: hydrALAzine 20 MG INJ IV PRN (13:30)
--- NOTE | 2017-05-15 14:06 | CONS ---
Date/Time of Note Date/Time of Note DATE: 05/15/17 TIME: 14:04 Consult Date/Type/Reason Admit Date/Time May 07, 2017 at 15:05 Initial Consult Date 05/08/17 Type of Consultation: ID Ordering Provider: ABI GARCIA Objective Vital Signs Date Time Temp Pulse Resp B/P Pulse Ox O2 Delivery O2 Flow Rate FiO2 05/15/17 13:03 99.5 91 167/91 96 Nasal Cannula 2.0 05/15/17 07:22 19 05/14/17 20:16 36 Intake and Output 05/14/17 05/14/17 05/15/17 15:00 23:00 07:00 Intake Total 690 ml Output Total 500 ml Balance 190 ml Results/Medications Result Diagram: 05/15/17 0638 05/15/1738 Results 24 hrs Laboratory Tests Test 05/15/17 06:38 05/15/17 10:48 White Blood Count 10.7 Red Blood Count 2.93 L Hemoglobin 8.1 L Hematocrit 26.7 L Mean Corpuscular Volume 91.1 Mean Corpuscular Hemoglobin 27.6 L Mean Corpuscular Hemoglobin Concent 30.3 L Red Cell Distribution Width 15.0 H Platelet Count 226 Mean Platelet Volume 11.1 H Neutrophils % 71.0 Lymphocytes % 11.4 L Monocytes % 9.4 Eosinophils % 3.3 Basophils % 0.4 Nucleated Red Blood Cells % 0.0 Neutrophils # 7.6 H Lymphocytes # 1.2 Monocytes # 1.0 H Eosinophils # 0.4 Basophils # 0.0 Nucleated Red Blood Cells # 0.0 Sodium Level 144 Potassium Level 3.5 Chloride Level 109 Carbon Dioxide Level 32 H Anion Gap 7 L Blood Urea Nitrogen 12 Creatinine 0.73 Glucose Level 116 Calcium Level 8.1 L Free Thyroxine 0.98 Random Cortisol 13.1 Vancomycin Level Trough 9.6 L Medications Current Medications Dextrose/Sodium Chloride (D5-1/2ns) 1,000 ml @ 50 mls/hr Q20H IV Last administered on 05/13/17t 18:26; Admin Dose 50 MLS/HR; Start 05/07/17 at 17:26 Ondansetron HCl (Zofran Inj) 4 mg Q6H PRN IV NAUSEA AND/OR VOMITING; Start 05/07/17 at 17:30 Acetaminophen (Tylenol Supp) 650 mg Q4H PRN [place] PAIN LEVEL 1-3 OR FEVER Last administered on 05/14/17 06:30; Admin Dose 650 MG; Start 05/07/17 at 17:30 Morphine Sulfate (morphine) 2 mg Q4H PRN IV PAIN LEVEL 7-10; Start 05/07/17 at 17:30 Enoxaparin Sodium (Lovenox) 30 mg DAILY SC Last administered on 05/13/17 09: 52; Admin Dose 30 MG; Start 05/08/17 at 09:00; Status Future Hold Miscellaneous Information (* Miscellaneous Pharmacy Order) PATIENT'S OWN MEDICATI... DAILY XX ; Start 05/09/17 at 09:00 Levothyroxine Sodium (Synthroid) 137 mcg DAILY@06 NGT Last administered on 06:00; Admin Dose 137 MCG; Start 05/09/17 at 06:00 Allopurinol (Zyloprim) 100 mg DAILY PO Last administered on 05/14/17 10:42; Admin Dose 100 MG; Start 05/08/17 at 18:00 IV Flush (NS 10 ml) 10 ml PRN PRN IV IV PROTOCOL; Start 05/08/17 at 17:30 Lansoprazole (Prevacid) 30 mg DAILY@06 NGT Last administered on 05/15/17 06: 00; Admin Dose 30 MG; Start 05/12/17 at 06:00 Collagenase (Santyl) 1 applic DAILY TOP Last administered on 05/14/17 09:00; Admin Dose 1 APPLIC; Start 05/13/17 at 09:00 Nystatin 1 applic 1 applic BID TOP Last administered on 05/14/17 21:59; Admin Dose 1 APPLIC; Start 05/12/17 at 21:00 Ceftriaxone Sodium (Rocephin) 50 ml @ 100 mls/hr Q24H IVPB Last administered on 05/14/17 16:00; Admin Dose 100 MLS/HR; Start 05/12/17 at 16:00 Aspirin (Aspirin) 81 mg DAILY PO ; Start 05/13/17 at 09:00 Carbidopa/Levodopa (Sinemet (25/ 100)) 1 tab TID PO Last administered on 21:59; Admin Dose 1 TAB; Start 05/13/17 at 09:00 Potassium Chloride (Klor-Con 20) 20 meq BID PO Last administered on 05/14/17t 21:59; Admin Dose 20 MEQ; Start 05/14/17 at 21:00 Hydralazine HCl (Apresoline) 10 mg Q4H PRN IV SBGP>170; Start 05/15/17 at 13: 30; Status UNV Clonidine HCl 1 patch 1 patch Q7D TRANSDERM ; Start 05/15/17 at 13:30; Status UNV Vancomycin HCl (Vancocin) 250 ml @ 125 mls/hr Q12H IVPB ; Start 05/16/17 at 01 :00 Assessment/Plan Chief Complaint/Hosp Course SUBJECTIVE: No acute events, more confused today, lethargic, afebrile Urine culture on admission grew Klebsiella pneumoniae and Streptococcal agalactiae, LE wound cx + Enterococcus and staph species. Serology for WNV negative ANTIMICROBIALS: 1. Vancomycin. 2. Rocephin. INDWELLINGS: Cabrera catheter and PICC line. PHYSICAL EXAMINATION: GENERAL: Morbidly obese elderly woman who is lethargic, in no distress. HEENT: Head atraumatic, normocephalic. Sclerae anicteric. Buccal mucosa dry. NECK: Obese. CHEST: Rise symmetrical. Breath sounds diminished to bases. HEART: S1, S2. ABDOMEN: Soft. Bowel tones present. EXTREMITIES: Without cyanosis. Bilateral lower extremities edema, erythema and some drainage. ASSESSMENT: 1. Acute encephalopathy, likely toxic metabolic. Rule out meningitis. As per report, the patient was functional prior to admission to the hospital, neurology on case. 2. Bilateral lower extremity cellulitis. 3. Polymicrobial urinary tract infection. 4. Morbid obesity. 5. Probable obstructive sleep apnea. 6. Parkinson's dementia. PLAN: The patient remains unchanged. Neurology follows. Continue abx, aspiration precautions, f/u cxr in am DW staff Problems: ANITA LUA NP May 15, 2017 14:06
[2017-05-15] MEDS ORDERED: CLONIDINE 0.1 MG/24 HR PATCH TRANSDERM SCH (15:00)
--- NOTE | 2017-05-15 15:52 | PN ---
Date/Time of Note Date/Time of Note DATE: 05/15/17 TIME: 15:46 Assessment/Plan VTE Prophylaxis VTE Prophylaxis Intervention: other Lines/Catheters IV C[facility]ter Type (from [facility]): Peripheral IV Urinary Cath still in place: Yes Assessment/Plan Assessment/Plan - Acute encephalopathy toxic metabolic - Possible encephalitis, pending LP. Dr. Forrest is following in neurology consultation. - Bilateral lower extremity cellulitis. Continue to biotics per ID. Dr. Stephens is following in infectious disease consultation. - Polymicrobial urinary tract infection - Acute kidney injury, resolving. Dr. Cordoba is following in nephrology consultation. Continue IV fluids. Monitor electrolytes. - Acute respiratory insufficiency. Continue breathing treatment and oxygen supplementation. - Chronic obstructive pulmonary disease. - History of hypothyroidism. Continue levothyroxine. - History of peripheral vascular disease with history of vascular interventions. - History of Parkinson disease. Continue Sinemet. - History of osteoarthritis. - History of hyperlipidemia. Further recommendations based on clinical course. Plan of care discussed with Dr. Bonilla Exam/Review of Systems Vital Signs Vitals Vital Signs Date Time Temp Pulse Resp B/P Pulse Ox O2 Delivery O2 Flow Rate FiO2 05/15/17 15:01 99.8 58 19 120/59 98 05/15/17 14:06 Nasal Cannula 2.0 05/14/17 20:16 36 Intake and Output 05/14/17 05/14/17 05/15/17 15:00 23:00 07:00 Intake Total 690 ml Output Total 500 ml Balance 190 ml Exam Constitutional: alert Respiratory: clear to auscultation, diminished breath sounds Cardiovascular: nl pulses, regular rate and rhythm Gastrointestinal: non-tender, soft Musculoskeletal: nl extremities to inspection Results Result Diagram: 05/15/17 0638 05/15/17 0638 Results 24 hrs Laboratory Tests Test 05/15/17 06:38 05/15/17 10:48 White Blood Count 10.7 Red Blood Count 2.93 L Hemoglobin 8.1 L Hematocrit 26.7 L Mean Corpuscular Volume 91.1 Mean Corpuscular Hemoglobin 27.6 L Mean Corpuscular Hemoglobin Concent 30.3 L Red Cell Distribution Width 15.0 H Platelet Count 226 Mean Platelet Volume 11.1 H Neutrophils % 71.0 Lymphocytes % 11.4 L Monocytes % 9.4 Eosinophils % 3.3 Basophils % 0.4 Nucleated Red Blood Cells % 0.0 Neutrophils # 7.6 H Lymphocytes # 1.2 Monocytes # 1.0 H Eosinophils # 0.4 Basophils # 0.0 Nucleated Red Blood Cells # 0.0 Sodium Level 144 Potassium Level 3.5 Chloride Level 109 Carbon Dioxide Level 32 H Anion Gap 7 L Blood Urea Nitrogen 12 Creatinine 0.73 Glucose Level 116 Calcium Level 8.1 L Free Thyroxine 0.98 Random Cortisol 13.1 Vancomycin Level Trough 9.6 L Medications Medications Current Medications Dextrose/Sodium Chloride (D5-1/2ns) 1,000 ml @ 50 mls/hr Q20H IV Last administered on 05/13/17 18:26; Admin Dose 50 MLS/HR; Start 05/07/17 at 17:26 Ondansetron HCl (Zofran Inj) 4 mg Q6H PRN IV NAUSEA AND/OR VOMITING; Start 05/07/17 at 17:30 Acetaminophen (Tylenol Supp) 650 mg Q4H PRN [place] PAIN LEVEL 1-3 OR FEVER Last administered on 05/14/17 06:30; Admin Dose 650 MG; Start 05/07/17 at 17:30 Morphine Sulfate (morphine) 2 mg Q4H PRN IV PAIN LEVEL 7-10; Start 05/07/17 at 17:30 Enoxaparin Sodium (Lovenox) 30 mg DAILY SC Last administered on 05/13/17 09: 52; Admin Dose 30 MG; Start 05/08/17 at 09:00; Status Future Hold Miscellaneous Information (* Miscellaneous Pharmacy Order) PATIENT'S OWN MEDICATI... DAILY XX ; Start 05/09/17 at 09:00 Levothyroxine Sodium (Synthroid) 137 mcg DAILY@06 NGT Last administered on 06:00; Admin Dose 137 MCG; Start 05/09/17 at 06:00 Allopurinol (Zyloprim) 100 mg DAILY PO Last administered on 05/14/17 10:42; Admin Dose 100 MG; Start 05/08/17 at 18:00 IV Flush (NS 10 ml) 10 ml PRN PRN IV IV PROTOCOL; Start 05/08/17 at 17:30 Lansoprazole (Prevacid) 30 mg DAILY@06 NGT Last administered on 05/15/17 06: 00; Admin Dose 30 MG; Start 05/12/17 at 06:00 Collagenase (Santyl) 1 applic DAILY TOP Last administered on 05/14/17 09:00; Admin Dose 1 APPLIC; Start 05/13/17 at 09:00 Nystatin 1 applic 1 applic BID TOP Last administered on 05/14/17 21:59; Admin Dose 1 APPLIC; Start 05/12/17 at 21:00 Ceftriaxone Sodium (Rocephin) 50 ml @ 100 mls/hr Q24H IVPB Last administered on 05/14/17 16:00; Admin Dose 100 MLS/HR; Start 05/12/17 at 16:00 Aspirin (Aspirin) 81 mg DAILY PO ; Start 05/13/17 at 09:00 Carbidopa/Levodopa (Sinemet (25/ 100)) 1 tab TID PO Last administered on 21:59; Admin Dose 1 TAB; Start 05/13/17 at 09:00 Potassium Chloride (Klor-Con 20) 20 meq BID PO Last administered on 05/14/17 21:59; Admin Dose 20 MEQ; Start 05/14/17 at 21:00 Hydralazine HCl (Apresoline) 10 mg Q4H PRN IV SBP>170; Start 05/15/17 at 13:30 Clonidine HCl 1 patch 1 patch Q7D TRANSDERM ; Start 05/15/17 at 15:00 Vancomycin HCl (Vancocin) 250 ml @ 125 mls/hr Q12H IVPB ; Start 05/16/17 at 01 :00 PANCHO SIGALA May 15, 2017 15:52
--- NOTE | 2017-05-15 16:42 | RADRPT ---
PROCEDURE: XR Chest. CLINICAL INDICATION: Shortness of breath. TECHNIQUE: Single frontal view. COMPARISON: 05/12/2017. FINDINGS: There is mild pulmonary edema, unchanged. There is elevation of the right hemidiaphragm. The lungs a re otherwise clear. The heart size is normal. There is no pleural effusion. There is no pneumothorax. IMPRESSION: 1. Mild pulmonary edema, unchanged. 2. Elevation of the right hemidiaphragm. 3. Otherwise normal chest x-ray. RPTAT: QQ .Rei Holder MD, MD Date Time Electronically viewed and signed by .Rei Holder MD, MD on 05/15/2017 16:42 .R/
[2017-05-15] MEDS: CEFTRIAXONE 2 GM/50 ML (PMX) 50 ML IVPB SCH (17:17)
[2017-05-16] VITALS (15 sets, daily range): BP systolic 108–132; BP diastolic 49–62; PULSE 56–83; RESP 16–21
[2017-05-16] MEDS: VANCOMYCIN 1 GM in NS 250 ML IVPB SCH ×2 (01:00→15:42)
[2017-05-16] MEDS: LEVOTHYROXINE 137 MCG TAB NGT SCH (06:24)
[2017-05-16] MEDS: LANSOPRAZOLE 30 MG CAP NGT SCH (06:24)
[2017-05-16 06:28] LABS: CREATININE 0.67 mg/dl (0.44-1.00)
[2017-05-16] MEDS: ALLOPURINOL 100 MG TAB PO SCH (10:02)
[2017-05-16] MEDS: POTASSIUM CHLORIDE (SR) 20 MEQ TAB PO SCH ×2 (10:03→20:30)
[2017-05-16] MEDS: ASPIRIN 81 MG TAB PO SCH (10:03)
[2017-05-16] MEDS: CARBIDOPA/LEVODOPA (25/100) TAB PO SCH ×3 (10:03→20:30)
[2017-05-16] MEDS: ENOXAPARIN 30 MG/0.3 ML SYG SC SCH (10:04)
[2017-05-16] MEDS: COLLAGENASE 30 GM TUBE TOP SCH (10:08)
[2017-05-16] MEDS: NYSTATIN 30 GM POWDER BTL TOP SCH ×2 (10:08→20:31)
[2017-05-16] MEDS: [UNRECOGNIZED DRUG - REMARK] XX SCH (10:09)
[2017-05-16 11:11] LABS: HSV 1 IGG ANTIBODY <0.90 index; HSV 2 IGG ANTIBODY <0.90 index
[2017-05-16] MEDS ORDERED: FUROSEMIDE 20 MG INJ IV ONE (12:00)
[2017-05-16] MEDS ORDERED: ALBUMIN HUMAN 25% 100 ML IV ONE (12:00)
--- NOTE | 2017-05-16 13:30 | PN ---
Date/Time of Note Date/Time of Note DATE: 05/16/17 TIME: 13:24 Assessment/Plan VTE Prophylaxis VTE Prophylaxis Intervention: SCD's Lines/Catheters IV Catheter Type (from Nrs): Peripheral IV Urinary Cath still in place: Yes Reason Cath still needed: urinary retention Assessment/Plan Chief Complaint/Hosp Course Pt is lethargic but arousable, unable to undergo LP due to SOB when pt is supine , remains afebrile. Assessment/Plan - Acute encephalopathy toxic metabolic - Possible encephalitis, Continue abx per ID. Dr. Forrest is following in neurology consultation. - Bilateral lower extremity cellulitis with wounds. Continue to biotics per ID. Dr. Stephens is following in infectious disease consultation. Dr Thomas is asked to see pt in podiatry consultation. - Polymicrobial urinary tract infection - Acute kidney injury, resolving. Dr. Cordoba is following in nephrology consultation. Continue IV fluids. Monitor electrolytes. - Acute respiratory insufficiency. Continue breathing treatment and oxygen supplementation. - Chronic obstructive pulmonary disease. - History of hypothyroidism. Continue levothyroxine. - History of peripheral vascular disease with history of vascular interventions. - History of Parkinson disease. Continue Sinemet. - History of osteoarthritis. - History of hyperlipidemia. Further recommendations based on clinical course. Plan of care discussed with Dr. Bonilla. Problems: Exam/Review of Systems Vital Signs Vitals Vital Signs Date Time Temp Pulse Resp B/P Pulse Ox O2 Delivery O2 Flow Rate FiO2 05/16/17 12:09 61 05/16/17 11:19 99.4 20 111/49 98 05/16/17 10:14 Nasal Cannula 2.0 05/14/17 20:16 36 Intake and Output 05/15/17 05/15/17 05/16/17 15:00 23:00 07:00 Intake Total 650 ml 50 ml Output Total 200 ml 400 ml Balance 450 ml -350 ml Exam Constitutional: alert, frail Head: normocephalic Neck: supple Respiratory: diminished breath sounds Cardiovascular: nl pulses Gastrointestinal: non-tender, soft Extremities: edema, other (Erythema) Neurological: confused Results Result Diagram: 05/15/17 0638 05/16/17 0550 Results 24 hrs Laboratory Tests Test 05/16/17 05:50 Blood Urea Nitrogen 13 Creatinine 0.67 Medications Medications Current Medications Ondansetron HCl (Zofran Inj) 4 mg Q6H PRN IV NAUSEA AND/OR VOMITING; Start 05/07/17 at 17:30 Acetaminophen (Tylenol Supp) 650 mg Q4H PRN [place] PAIN LEVEL 1-3 OR FEVER Last administered on 05/14/17 06:30; Admin Dose 650 MG; Start 05/07/17 at 17:30 Morphine Sulfate (morphine) 2 mg Q4H PRN IV PAIN LEVEL 7-10; Start 05/07/17 at 17:30 Enoxaparin Sodium (Lovenox) 30 mg DAILY SC Last administered on 05/16/17 10: 04; Admin Dose 30 MG; Start 05/08/17 at 09:00; Status Future hold Miscellaneous Information (* Miscellaneous Pharmacy Order) PATIENT'S OWN MEDICATI... DAILY XX ; Start 05/09/17 at 09:00 Levothyroxine Sodium (Synthroid) 137 mcg DAILY@06 NGT Last administered on 06:24; Admin Dose 137 MCG; Start 05/09/17 at 06:00 Allopurinol (Zyloprim) 100 mg DAILY PO Last administered on 05/16/17 10:02; Admin Dose 100 MG; Start 05/08/17 at 18:00 IV Flush (NS 10 ml) 10 ml PRN PRN IV IV PROTOCOL; Start 05/08/17 at 17:30 Lansoprazole (Prevacid) 30 mg DAILY@06 NGT Last administered on 05/16/17 06: 24; Admin Dose 30 MG; Start 05/12/17 at 06:00 Collagenase (Santyl) 1 applic DAILY TOP Last administered on 05/16/17 10:08; Admin Dose 1 APPLIC; Start 05/13/17 at 09:00 Nystatin 1 applic 1 applic BID TOP Last administered on 05/16/17 10:08; Admin Dose 1 APPLIC; Start 05/12/17 at 21:00 Ceftriaxone Sodium (Rocephin) 50 ml @ 100 mls/hr Q24H IVPB Last administered on 05/15/17 17:17; Admin Dose 100 MLS/HR; Start 05/12/17 at 16:00 Aspirin (Aspirin) 81 mg DAILY PO Last administered on 05/16/17 10:03; Admin Dose 81 MG; Start 05/13/17 at 09:00 Carbidopa/Levodopa (Sinemet (25/ 100)) 1 tab TID PO Last administered on 10:03; Admin Dose 1 TAB; Start 05/13/17 at 09:00 Potassium Chloride (Klor-Con 20) 20 meq BID PO Last administered on 05/16/17 10:03; Admin Dose 20 MEQ; Start 05/14/17 at 21:00 Hydralazine HCl (Apresoline) 10 mg Q4H PRN IV SBP>170; Start 05/15/17 at 13:30 Clonidine HCl 1 patch 1 patch Q7D TRANSDERM Last administered on 05/15/17 17: 18; Admin Dose 1 PATCH; Start 05/15/17 at 15:00 Vancomycin HCl (Vancocin) 250 ml @ 125 mls/hr Q12H IVPB Last administered on 05/16/17 01:00; Admin Dose 125 MLS/HR; Start 05/16/17 at 01:00 Miscellaneous Information (*Rx Drug Level Order Reminder*) 1 ONCE ONCE XX ; Start 05/17/17 at 12:00; Stop 05/17/17 at 12:01 ABI GARCIA May 16, 2017 13:30
--- NOTE | 2017-05-16 14:06 | CONS ---
Date/Time of Note Date/Time of Note DATE: 05/16/17 TIME: 14:04 Consult Date/Type/Reason Admit Date/Time May 07, 2017 at 15:05 Initial Consult Date 05/08/17 Type of Consultation: ID Ordering Provider: ABI GARCIA Objective Vital Signs Date Time Temp Pulse Resp B/P Pulse Ox O2 Delivery O2 Flow Rate FiO2 05/16/17 12:09 61 05/16/17 11:19 99.4 20 111/49 98 05/16/17 10:14 Nasal Cannula 2.0 05/14/17 20:16 36 Intake and Output 05/15/17 05/15/17 05/16/17 15:00 23:00 07:00 Intake Total 650 ml 50 ml Output Total 200 ml 400 ml Balance 450 ml -350 ml Results/Medications Result Diagram: 05/15/17 0638 05/16/17 0550 Results 24 hrs Laboratory Tests Test 05/16/17 05:50 Blood Urea Nitrogen 13 Creatinine 0.67 Medications Current Medications Ondansetron HCl (Zofran Inj) 4 mg Q6H PRN IV NAUSEA AND/OR VOMITING; Start 05/07/17 at 17:30 Acetaminophen (Tylenol Supp) 650 mg Q4H PRN [place] PAIN LEVEL 1-3 OR FEVER Last administered on 05/14/17 06:30; Admin Dose 650 MG; Start 05/07/17 at 17:30 Morphine Sulfate (morphine) 2 mg Q4H PRN IV PAIN LEVEL 7-10; Start 05/07/17 at 17:30 Enoxaparin Sodium (Lovenox) 30 mg DAILY SC Last administered on 05/16/17 10: 04; Admin Dose 30 MG; Start 05/08/17 at 09:00; Status Future hold Miscellaneous Information (* Miscellaneous Pharmacy Order) PATIENT'S OWN MEDICATI... DAILY XX ; Start 05/09/17 at 09:00 Levothyroxine Sodium (Synthroid) 137 mcg DAILY@06 NGT Last administered on 06:24; Admin Dose 137 MCG; Start 05/09/17 at 06:00 Allopurinol (Zyloprim) 100 mg DAILY PO Last administered on 05/16/17 10:02; Admin Dose 100 MG; Start 05/08/17 at 18:00 IV Flush (NS 10 ml) 10 ml PRN PRN IV IV PROTOCOL; Start 05/08/17 at 17:30 Lansoprazole (Prevacid) 30 mg DAILY@06 NGT Last administered on 05/16/17 06: 24; Admin Dose 30 MG; Start 05/12/17 at 06:00 Collagenase (Santyl) 1 applic DAILY TOP Last administered on 05/16/17 10:08; Admin Dose 1 APPLIC; Start 05/13/17 at 09:00 Nystatin 1 applic 1 applic BID TOP Last administered on 05/16/17 10:08; Admin Dose 1 APPLIC; Start 05/12/17 at 21:00 Ceftriaxone Sodium (Rocephin) 50 ml @ 100 mls/hr Q24H IVPB Last administered on 05/15/17 17:17; Admin Dose 100 MLS/HR; Start 05/12/17 at 16:00 Aspirin (Aspirin) 81 mg DAILY PO Last administered on 05/16/17 10:03; Admin Dose 81 MG; Start 05/13/17 at 09:00 Carbidopa/Levodopa (Sinemet (25/ 100)) 1 tab TID PO Last administered on 13:20; Admin Dose 1 TAB; Start 05/13/17 at 09:00 Potassium Chloride (Klor-Con 20) 20 meq BID PO Last administered on 05/16/17 10:03; Admin Dose 20 MEQ; Start 05/14/17 at 21:00 Hydralazine HCl (Apresoline) 10 mg Q4H PRN IV SBP>170; Start 05/15/17 at 13:30 Clonidine HCl 1 patch 1 patch Q7D TRANSDERM Last administered on 05/15/17 17: 18; Admin Dose 1 PATCH; Start 05/15/17 at 15:00 Vancomycin HCl (Vancocin) 250 ml @ 125 mls/hr Q12H IVPB Last administered on 05/16/17 01:00; Admin Dose 125 MLS/HR; Start 05/16/17 at 01:00 Miscellaneous Information (*Rx Drug Level Order Reminder*) 1 ONCE ONCE XX ; Start 05/17/17 at 12:00; Stop 05/17/17 at 12:01 Assessment/Plan Chief Complaint/Hosp Course SUBJECTIVE: No acute events, lethargic, afebrile Urine culture on admission grew Klebsiella pneumoniae and Streptococcal agalactiae, LE wound cx + Enterococcus and staph species. Serology for WNV negative ANTIMICROBIALS: 1. Vancomycin. 2. Rocephin. INDWELLINGS: Cabrera catheter and PICC line. PHYSICAL EXAMINATION: GENERAL: Morbidly obese elderly woman who is lethargic, in no distress. HEENT: Head atraumatic, normocephalic. Sclerae anicteric. Buccal mucosa dry. NECK: Obese. CHEST: Rise symmetrical. Breath sounds diminished to bases. HEART: S1, S2. ABDOMEN: Soft. Bowel tones present. EXTREMITIES: Without cyanosis. Bilateral lower extremities edema, erythema and some drainage. ASSESSMENT: 1. Acute encephalopathy, likely toxic metabolic. Rule out meningitis==> LP not done 2 to pt's noncompliance, serology WNV neg 2. Bilateral lower extremity ongoing cellulitis with chronic wounds. 3. Polymicrobial urinary tract infection. 4. Morbid obesity. 5. Probable obstructive sleep apnea. 6. Parkinson's dementia. 7. Mild pulmonary edema per CXR PLAN: The patient remains unchanged. Neurology follows. Continue abx, aspiration precautions, local wound care ?podiatry [facility] staff Problems: ANITA LUA NP May 16, 2017 14:06
--- NOTE | 2017-05-16 15:18 | RADRPT ---
PROCEDURE: US upper extremity Venous. CLINICAL INDICATION: Bilateral arm edema and pain TECHNIQUE: Multiple sonographic images of the bilateral upper extremity venous system was obtained utilizing grayscale, color-flow, compressive sonography and doppler imaging with augmentation. The images were reviewed on a PACS workstation. COMPARISON: None. FINDINGS: The left cephalic vein is not compressible, consistent with thrombosis. The right cephalic vein is p atent. There is normal compressibility and flow within the bilateral internal jugular vein, subclavian vein , axillary vein, brachial, basilic , radial and ulnar veins. RPTAT: AA IMPRESSION: Thrombosis of the left cephalic vein. Otherwise unremarkable. .Jake Vasquez MD, MD Date Time Electronically viewed and signed by .Jake Vasquez MD, on 05/16/2017 15:18 .S/
--- NOTE | 2017-05-16 16:10 | CONS ---
Date/Time of Note Date/Time of Note DATE: 05/16/17 TIME: 16:07 Assessment/Plan Assessment/Plan Chief Complaint/Hosp Course IMP: IMPRESSION: 1. Bradycardia, severe in the 20s in the setting of hyperkalemia. Continue to follow with resolution of bradycardia after improvement in hyperkalemia.-no recurrence since improvement in hyperkalemia/ nl tsh 2. Abnormal electrocardiogram with baseline conduction system disease and right bundle branch block.-negative trop x 3/NL EF by echo this admit 3. Hypotension-improved and stable off of anti-hypertensives 4. Hyperkalemia, improved. 5. Renal failure, improved 6. Altered mental state/encephalopathy-ongoing with agitation requiring restraints 7. Anemia with acidosis. 8. Slurred speech secondary to low cardiac output and bradycardia versus transient ischemic attack/stroke.-remains with ams 9. Fevers 10. HTN-? relation to agitation/confusion-currently improved 11.Cephalic vein thrombosis REcc: -Tele -serial ecg's -Continue asa -Follow volume status and creatnine closely with renal following s/p dose of lasix today -continue abx's and f/u cx data -Rx fevers -Ongoing neuro eval of encephalopathy with pnding LP as possible -PRN hydralazine IVP and clonidine TTS low dose Problems: Consultation Date/Type/Reason Admit Date/Time May 07, 2017 at 15:05 Initial Consult Date 05/08/17 Type of Consultation: cardiology Reason for Consultation CHF Referring Provider: ABI GARCIA Exam/Review of Systems Vital Signs Vitals Vital Signs Date Time Temp Pulse Resp B/P Pulse Ox O2 Delivery O2 Flow Rate FiO2 05/16/17 15:25 2.0 05/16/17 15:16 99.6 52 17 108/54 99 05/16/17 10:14 Nasal Cannula 05/14/17 20:16 36 Intake and Output 05/15/17 05/15/17 05/16/17 15:00 23:00 07:00 Intake Total 650 ml 50 ml Output Total 200 ml 400 ml Balance 450 ml -350 ml Exam Review of Systems: CONSTITUTIONAL: No fevers, chills. PULMONARY: No sob CARDIOVASCULAR: No chest pain/palpitations GASTROINTESTINAL: No nausea/vomiting. GENITOURINARY: No hematuria/dysuria. MUSCULOSKELETAL: No myagias/arthalgias. PSYCHIATRIC: The patient denies depression. NEUROLOGIC: No weakness Constitutional: alert Psych: no complaints Head: normocephalic ENMT: mucosa pink and moist Neck: jvd (9 cm water), supple Respiratory: diminished breath sounds (at bases/B) Cardiovascular: regular rate and rhythm Gastrointestinal: non-tender, soft Musculoskeletal: muscle tone (normal) Extremities: edema (none) Neurological: other (No focal deficits) Results Result Diagram: 05/15/17 0638 05/16/17 0550 Results 24 hrs Laboratory Tests Test 05/16/17 05:50 Blood Urea Nitrogen 13 Creatinine 0.67 Medications Medications Current Medications Ondansetron HCl (Zofran Inj) 4 mg Q6H PRN IV NAUSEA AND/OR VOMITING; Start 05/07/17 at 17:30 Acetaminophen (Tylenol Supp) 650 mg Q4H PRN [place] PAIN LEVEL 1-3 OR FEVER Last administered on 05/14/17 06:30; Admin Dose 650 MG; Start 05/07/17 at 17:30 Morphine Sulfate (morphine) 2 mg Q4H PRN IV PAIN LEVEL 7-10; Start 05/07/17 at 17:30 Enoxaparin Sodium (Lovenox) 30 mg DAILY SC Last administered on 05/16/17 10: 04; Admin Dose 30 MG; Start 05/08/17 at 09:00; Status Future hold Miscellaneous Information (* Miscellaneous Pharmacy Order) PATIENT'S OWN MEDICATI... DAILY XX ; Start 05/09/17 at 09:00 Levothyroxine Sodium (Synthroid) 137 mcg DAILY@06 NGT Last administered on 06:24; Admin Dose 137 MCG; Start 05/09/17 at 06:00 Allopurinol (Zyloprim) 100 mg DAILY PO Last administered on 05/16/17 10:02; Admin Dose 100 MG; Start 05/08/17 at 18:00 IV Flush (NS 10 ml) 10 ml PRN PRN IV IV PROTOCOL; Start 05/08/17 at 17:30 Lansoprazole (Prevacid) 30 mg DAILY@06 NGT Last administered on 05/16/17 06: 24; Admin Dose 30 MG; Start 05/12/17 at 06:00 Collagenase (Santyl) 1 applic DAILY TOP Last administered on 05/16/17 10:08; Admin Dose 1 APPLIC; Start 05/13/17 at 09:00 Nystatin 1 applic 1 applic BID TOP Last administered on 05/16/17 10:08; Admin Dose 1 APPLIC; Start 05/12/17 at 21:00 Ceftriaxone Sodium (Rocephin) 50 ml @ 100 mls/hr Q24H IVPB Last administered on 05/15/17 17:17; Admin Dose 100 MLS/HR; Start 05/12/17 at 16:00 Aspirin (Aspirin) 81 mg DAILY PO Last administered on 05/16/17 10:03; Admin Dose 81 MG; Start 05/13/17 at 09:00 Carbidopa/Levodopa (Sinemet (25/ 100)) 1 tab TID PO Last administered on 13:20; Admin Dose 1 TAB; Start 05/13/17 at 09:00 Potassium Chloride (Klor-Con 20) 20 meq BID PO Last administered on 05/16/17 10:03; Admin Dose 20 MEQ; Start 05/14/17 at 21:00 Hydralazine HCl (Apresoline) 10 mg Q4H PRN IV SBP>170; Start 05/15/17 at 13:30 Clonidine HCl 1 patch 1 patch Q7D TRANSDERM Last administered on 05/15/17 17: 18; Admin Dose 1 PATCH; Start 05/15/17 at 15:00 Vancomycin HCl (Vancocin) 250 ml @ 125 mls/hr Q12H IVPB Last administered on 05/16/17 15:42; Admin Dose 125 MLS/HR; Start 05/16/17 at 01:00 Miscellaneous Information (*Rx Drug Level Order Reminder*) 1 ONCE ONCE XX ; Start 05/17/17 at 12:00; Stop 05/17/17 at 12:01 RON TORRES May 16, 2017 16:10
--- NOTE | 2017-05-16 16:25 | CONS ---
Date/Time of Note Date/Time of Note DATE: 05/16/17 TIME: 16:24 Assessment/Plan Assessment/Plan Additional Assessment/Plan 1. Severe symptomatic bradycardia- improved 2. GUY on possible CKD due to Prerenal azotemia 3. Possible CKD 4. Acute hyperkalemia due to GUY 5.AMs due to acute metabolic encephalopathy and bradycardia 6. H.o CHF 7. H/o HTN 8. h/o hypothyroidism 9/ H/o parkinsonism 10. Hyperuricemia without gout Plan: Cr 0.67 today, Electrolytes stable, continue KCl 20MEQ PO BID started on pureed nectar thick diet, pt refused to eat today- so we will continue IVF D51/2NS rate to 50 cc/hr - tomorrow we will reassess her in AM to discontinue IVF On allopurinol 100mg po daily for hyperuricemia. Renal US showed normal right kidney, left kdiney not seen will continue to follow up Consultation Date/Type/Reason Admit Date/Time May 07, 2017 at 15:05 Initial Consult Date 05/08/17 Type of Consultation: NEPHROLOGY Referring Provider: ABI GARCIA 24 HR Interval Summary Free Text/Dictation Cr 0.73, BP stable Exam/Review of Systems Vital Signs Vitals Vital Signs Date Time Temp Pulse Resp B/P Pulse Ox O2 Delivery O2 Flow Rate FiO2 05/16/17 16:13 65 05/16/17 15:25 2.0 05/16/17 15:16 99.6 17 108/54 99 05/16/17 10:14 Nasal Cannula 05/14/17 20:16 36 Intake and Output 05/15/17 05/15/17 05/16/17 15:00 23:00 07:00 Intake Total 650 ml 50 ml Output Total 200 ml 400 ml Balance 450 ml -350 ml Exam Constitutional: pt more alert, on telemetry floor Eyes: nl conjunctiva Neck: supple Respiratory: clear to auscultation, diminished breath sounds, normal air movement Cardiovascular: regular rate and rhythm Gastrointestinal: non-tender, soft Musculoskeletal: muscle tone, muscle weakness, nl extremities to inspection, swelling Results Result Diagram: 05/15/17 0638 05/16/17 0550 Results 24 hrs Laboratory Tests Test 05/16/17 05:50 Blood Urea Nitrogen 13 Creatinine 0.67 Medications Medications Current Medications Ondansetron HCl (Zofran Inj) 4 mg Q6H PRN IV NAUSEA AND/OR VOMITING; Start 05/07/17 at 17:30 Acetaminophen (Tylenol Supp) 650 mg Q4H PRN [place] PAIN LEVEL 1-3 OR FEVER Last administered on 05/14/17 06:30; Admin Dose 650 MG; Start 05/07/17 at 17:30 Morphine Sulfate (morphine) 2 mg Q4H PRN IV PAIN LEVEL 7-10; Start 05/07/17 at 17:30 Enoxaparin Sodium (Lovenox) 30 mg DAILY SC Last administered on 05/16/17 10: 04; Admin Dose 30 MG; Start 05/08/17 at 09:00; Status Future hold Miscellaneous Information (* Miscellaneous Pharmacy Order) PATIENT'S OWN MEDICATI... DAILY XX ; Start 05/09/17 at 09:00 Levothyroxine Sodium (Synthroid) 137 mcg DAILY@06 NGT Last administered on 06:24; Admin Dose 137 MCG; Start 05/09/17 at 06:00 Allopurinol (Zyloprim) 100 mg DAILY PO Last administered on 05/16/17 10:02; Admin Dose 100 MG; Start 05/08/17 at 18:00 IV Flush (NS 10 ml) 10 ml PRN PRN IV IV PROTOCOL; Start 05/08/17 at 17:30 Lansoprazole (Prevacid) 30 mg DAILY@06 NGT Last administered on 05/16/17 06: 24; Admin Dose 30 MG; Start 05/12/17 at 06:00 Collagenase (Santyl) 1 applic DAILY TOP Last administered on 05/16/17 10:08; Admin Dose 1 APPLIC; Start 05/13/17 at 09:00 Nystatin 1 applic 1 applic BID TOP Last administered on 05/16/17 10:08; Admin Dose 1 APPLIC; Start 05/12/17 at 21:00 Ceftriaxone Sodium (Rocephin) 50 ml @ 100 mls/hr Q24H IVPB Last administered on 05/15/17 17:17; Admin Dose 100 MLS/HR; Start 05/12/17 at 16:00 Aspirin (Aspirin) 81 mg DAILY PO Last administered on 05/16/17 10:03; Admin Dose 81 MG; Start 10/10/17 at 09:00 Carbidopa/Levodopa (Sinemet (25/ 100)) 1 tab TID PO Last administered on 13:20; Admin Dose 1 TAB; Start 05/13/17 at 09:00 Potassium Chloride (Klor-Con 20) 20 meq BID PO Last administered on 05/16/17 10:03; Admin Dose 20 MEQ; Start 05/14/17 at 21:00 Hydralazine HCl (Apresoline) 10 mg Q4H PRN IV SBP>170; Start 05/15/17 at 13:30 Clonidine HCl 1 patch 1 patch Q7D TRANSDERM Last administered on 05/15/17 17: 18; Admin Dose 1 PATCH; Start 05/15/17 at 15:00 Vancomycin HCl (Vancocin) 250 ml @ 125 mls/hr Q12H IVPB Last administered on 05/16/17 15:42; Admin Dose 125 MLS/HR; Start 05/16/17 at 01:00 Miscellaneous Information (*Rx Drug Level Order Reminder*) 1 ONCE ONCE XX ; Start 05/17/17 at 12:00; Stop 05/17/17 at 12:01 ENRIQUETA HUNG MD May 16, 2017 16:25
--- NOTE | 2017-05-16 17:34 | CONS ---
Date/Time of Note Date/Time of Note DATE: 05/16/17 TIME: 17:32 Assessment/Plan Assessment/Plan Additional Assessment/Plan 77 year old female with CHF, HTN, HLD, Parkinson's, COPD, arthritis admitted with aphasia, bradycardia and hyperkalemia and was found to be altered and confused. MRI Brain w/o contrast: 1. No acute or early subacute ischemic infarction or intracranial hemorrhage. 2. Mild chronic microvascular ischemic changes and age related volume loss. Recommendations: ASA 81 mg daily resumed Parkinson's medications concern for possibly underlying encephalopathy unfortunately she was unable to tolerate LP due to severe agitation possible delirium and worsening of baseline dementia Consultation Date/Type/Reason Admit Date/Time May 07, 2017 at 15:05 Initial Consult Date 05/08/17 Type of Consultation: NEPHROLOGY Referring Provider: ABI GARCIA 24 HR Interval Summary Free Text/Dictation Improving in mental status. Following simple commands. Exam/Review of Systems Vital Signs Vitals Vital Signs Date Time Temp Pulse Resp B/P Pulse Ox O2 Delivery O2 Flow Rate FiO2 05/16/17 16:13 65 05/16/17 15:25 2.0 05/16/17 15:16 99.6 17 108/54 99 05/16/17 10:14 Nasal Cannula 05/14/17 20:16 36 Intake and Output 05/15/17 05/15/17 05/16/17 15:00 23:00 07:00 Intake Total 650 ml 50 ml Output Total 200 ml 400 ml Balance 450 ml -350 ml Exam Constitutional: other (Sleepy but arousable, following simple commands) Psych: nl mood/affect Head: atraumatic, normocephalic Eyes: EOMI, nl conjunctiva, nl lids, nl sclera ENMT: mucosa pink and moist, nl external ears & nose, nl lips & teeth, nl nasal mucosa & septum Neck: non-tender, supple Respiratory: clear to auscultation, normal air movement Cardiovascular: regular rate and rhythm Gastrointestinal: nl liver, spleen, non-tender, soft Neurological: other (Limited exam, following simple commands, mask facies, diffuse rigidity bilateral upper and lower extremity) Results Result Diagram: 05/15/17 0638 05/16/17 0550 Results 24 hrs Laboratory Tests Test 05/16/17 05:50 Blood Urea Nitrogen 13 Creatinine 0.67 Medications Medications Current Medications Ondansetron HCl (Zofran Inj) 4 mg Q6H PRN IV NAUSEA AND/OR VOMITING; Start 05/07/17 at 17:30 Acetaminophen (Tylenol Supp) 650 mg Q4H PRN [place] PAIN LEVEL 1-3 OR FEVER Last administered on 05/14/17 06:30; Admin Dose 650 MG; Start 05/07/17 at 17:30 Morphine Sulfate (morphine) 2 mg Q4H PRN IV PAIN LEVEL 7-10; Start 05/07/17 at 17:30 Enoxaparin Sodium (Lovenox) 30 mg DAILY SC Last administered on 05/16/17 10: 04; Admin Dose 30 MG; Start 05/08/17 at 09:00; Status Future hold Miscellaneous Information (* Miscellaneous Pharmacy Order) PATIENT'S OWN MEDICATI... DAILY XX ; Start 05/09/17 at 09:00 Levothyroxine Sodium (Synthroid) 137 mcg DAILY@06 NGT Last administered on 06:24; Admin Dose 137 MCG; Start 05/09/17 at 06:00 Allopurinol (Zyloprim) 100 mg DAILY PO Last administered on 05/16/17 10:02; Admin Dose 100 MG; Start 05/08/17 at 18:00 IV Flush (NS 10 ml) 10 ml PRN PRN IV IV PROTOCOL; Start 05/08/17 at 17:30 Lansoprazole (Prevacid) 30 mg DAILY@06 NGT Last administered on 05/16/17 06: 24; Admin Dose 30 MG; Start 05/12/17 at 06:00 Collagenase (Santyl) 1 applic DAILY TOP Last administered on 05/16/17 10:08; Admin Dose 1 APPLIC; Start 05/13/17 at 09:00 Nystatin 1 applic 1 applic BID TOP Last administered on 05/16/17 10:08; Admin Dose 1 APPLIC; Start 05/12/17 at 21:00 Ceftriaxone Sodium (Rocephin) 50 ml @ 100 mls/hr Q24H IVPB Last administered on 05/15/17 17:17; Admin Dose 100 MLS/HR; Start 05/12/17 at 16:00 Aspirin (Aspirin) 81 mg DAILY PO Last administered on 05/16/17 10:03; Admin Dose 81 MG; Start 05/13/17 at 09:00 Carbidopa/Levodopa (Sinemet (25/ 100)) 1 tab TID PO Last administered on 13:20; Admin Dose 1 TAB; Start 05/13/17 at 09:00 Potassium Chloride (Klor-Con 20) 20 meq BID PO Last administered on 05/16/17 10:03; Admin Dose 20 MEQ; Start 05/14/17 at 21:00 Hydralazine HCl (Apresoline) 10 mg Q4H PRN IV SBP>170; Start 05/15/17 at 13:30 Clonidine HCl 1 patch 1 patch Q7D TRANSDERM Last administered on 05/15/17 17: 18; Admin Dose 1 PATCH; Start 05/15/17 at 15:00 Vancomycin HCl (Vancocin) 250 ml @ 125 mls/hr Q12H IVPB Last administered on 05/16/17 15:42; Admin Dose 125 MLS/HR; Start 05/16/17 at 01:00 Miscellaneous Information (*Rx Drug Level Order Reminder*) 1 ONCE ONCE XX ; Start 05/17/17 at 12:00; Stop 05/17/17 at 12:01 FREDRICK KIRKPATRICK MD May 16, 2017 17:34
[2017-05-16] MEDS: CEFTRIAXONE 2 GM/50 ML (PMX) 50 ML IVPB SCH (18:09)
[2017-05-17] VITALS (11 sets, daily range): BP systolic 107–151; BP diastolic 52–68; PULSE 56–70; RESP 18
[2017-05-17] MEDS: VANCOMYCIN 1 GM in NS 250 ML IVPB SCH (03:37)
[2017-05-17] MEDS: LEVOTHYROXINE 137 MCG TAB NGT SCH (06:05)
[2017-05-17] MEDS: LANSOPRAZOLE 30 MG CAP NGT SCH (06:06)
[2017-05-17 06:35] LABS: BASOPHILS % 0.6 % (0.0-2.0); EOSINOPHILS # 0.4 10^3/ul (0.0-0.5); EOSINOPHILS % 5.3 % (0.0-7.0); HEMOGLOBIN 7.8 g/dl (12.0-16.0); LYMPHOCYTES # 0.8 10^3/ul (0.8-2.9); MEAN CORPUSCULAR HEMOGLOBIN 28.6 pg (29.0-33.0); MEAN CORPUSCULAR HGB CONC 31.2 g/dl (32.0-37.0); MEAN CORPUSCULAR VOLUME 91.6 fl (82.0-101.0); MEAN PLATELET VOLUME 11.6 fl (7.4-10.4); MONOCYTE # 0.8 10^3/ul (0.3-0.9); MONOCYTES % 11.9 % (0.0-11.0); NEUTROPHIL # 4.7 10^3/ul (1.6-7.5); NEUTROPHILS % 68.4 % (39.0-77.0); PLATELET COUNT 282 10^3/UL (140-415); RED BLOOD COUNT 2.73 10^6/ul (4.20-5.40); WHITE BLOOD COUNT 6.8 10^3/ul (4.8-10.8)
[2017-05-17 07:16] LABS: CALCIUM 7.9 mg/dl (8.4-10.2); CREATININE 0.65 mg/dl (0.44-1.00); POTASSIUM 3.4 mmol/L (3.5-5.1)
[2017-05-17] MEDS: CARBIDOPA/LEVODOPA (25/100) TAB PO SCH ×3 (08:26→21:30)
[2017-05-17] MEDS: ASPIRIN 81 MG TAB PO SCH (08:26)
[2017-05-17] MEDS: COLLAGENASE 30 GM TUBE TOP SCH ×2 (08:27→14:00)
[2017-05-17] MEDS: NYSTATIN 30 GM POWDER BTL TOP SCH ×2 (08:27→21:31)
[2017-05-17] MEDS: POTASSIUM CHLORIDE (SR) 20 MEQ TAB PO SCH ×2 (08:27→21:31)
[2017-05-17] MEDS: ENOXAPARIN 30 MG/0.3 ML SYG SC SCH (08:27)
[2017-05-17] MEDS: ALLOPURINOL 100 MG TAB PO SCH (08:27)
[2017-05-17] MEDS: [UNRECOGNIZED DRUG - REMARK] XX SCH (09:00)
--- NOTE | 2017-05-17 09:14 | CONS ---
Date/Time of Note Date/Time of Note DATE: 05/17/17 TIME: 09:13 Assessment/Plan Assessment/Plan Chief Complaint/Hosp Course ID PROGRESS NOTE CURRENT ABX: DAY # => Vanco IV +Ceftriaxone 24H INTERVAL SUMMARY * Awake, alert, calm, obese, VSS, NAD * Left cephalic vein thrombus * LEG WOUND CX: WOUND CULTURE Final Organism 1 COAGULASE NEGATIVE STAPH QUANTITY 3+ Organism 2 ENTEROCOCCUS SPECIES QUANTITY ISOLATED FROM BROTH ONLY COAG NEG ENT SPS M.I.C. RX M.I.C. RX --------- --- --------- --- AMPICILLIN <=2 S CEFAZOLIN R CIPROFLOXACIN >=8 R CLINDAMYCIN <=0.25 S DOXYCYCLINE S ERYTHROMYCIN >=8 R LEVOFLOXACIN >=8 R OXACILLIN >=4 R PENICILLIN-G >=0.5 R 8 S RIFAMPIN <=0.5 S VANCOMYCIN 1 S 1 S TRIMETHOPRIM/SULFAMETHOXAZOLE 160 R Physical Exam Physical Exam Constitutional: VSS, NAD, awake and responsive HEENT: Unremarkable Neck: Supple, full ROM Respiratory: clear to auscultation, normal air movement Cardiovascular: Pulse NL Gastrointestinal: Soft, NT Extremities: Warm, cellulitis w/open wound DSG c/D/I ID ASSESSMENT 77 yo Morbid Obese F admit with: 1. Acute encephalopathy, likely toxic metabolic. * Rule out meningitis==> LP not done 2 to pt's noncompliance, serology WNV neg 2. Bilateral lower extremity ongoing cellulitis with chronic wounds. * LEG WOUND CX: WOUND CULTURE Final Organism 1 COAGULASE NEGATIVE STAPH QUANTITY 3+ Organism 2 ENTEROCOCCUS SPECIES QUANTITY ISOLATED FROM BROTH ONLY 3. Polymicrobial urinary tract infection. 4. Pulm Edema => Diastolic Heart Failure 5. Probable obstructive sleep apnea/ Obesity hypoventilation syndrome 6. Parkinson's dementia. (- )MRSA Nares ABX ALLERGIES: KNDA CURRENT ABX: DAY # => Vanco IV +Ceftriaxone ID RECOMMENDATIONS 1. DC IV ABX -> Start PO ABX Doxycycline + Amoxicillin for continued wound coverage 2. Has received adequate coverage for UTI 3. DC to SNF when cleared by PMD on PO ABX as ordered x 7 days . Problems: Consultation Date/Type/Reason Admit Date/Time May 07, 2017 at 15:05 Initial Consult Date 05/08/17 Type of Consultation: ID Referring Provider: ABI GARCIA Exam/Review of Systems Vital Signs Vitals Vital Signs Date Time Temp Pulse Resp B/P Pulse Ox O2 Delivery O2 Flow Rate FiO2 05/17/17 08:42 66 05/17/17 07:31 98.0 18 107/52 98 05/17/17 06:31 2.0 05/16/17 20:00 Nasal Cannula 05/14/17 20:16 36 Intake and Output 05/16/17 05/16/17 05/17/17 15:00 23:00 07:00 Intake Total 350 ml 780 ml 200 ml Output Total 450 ml 500 ml Balance 350 ml 330 ml -300 ml Results Result Diagram: 05/17/17 0604 05/17/17 0604 Results 24 hrs Laboratory Tests Test 05/17/17 06:04 White Blood Count 6.8 # Red Blood Count 2.73 L Hemoglobin 7.8 L Hematocrit 25.0 L Mean Corpuscular Volume 91.6 Mean Corpuscular Hemoglobin 28.6 L Mean Corpuscular Hemoglobin Concent 31.2 L Red Cell Distribution Width 15.0 H Platelet Count 282 # Mean Platelet Volume 11.6 H Neutrophils % 68.4 Lymphocytes % 12.0 L Monocytes % 11.9 H Eosinophils % 5.3 Basophils % 0.6 Nucleated Red Blood Cells % 0.0 Neutrophils # 4.7 Lymphocytes # 0.8 Monocytes # 0.8 Eosinophils # 0.4 Basophils # 0.0 Nucleated Red Blood Cells # 0.0 Sodium Level 138 Potassium Level 3.4 L Chloride Level 109 Carbon Dioxide Level 31 Anion Gap 1 L Blood Urea Nitrogen 14 Creatinine 0.65 Glucose Level 100 Calcium Level 7.9 L Magnesium Level 2.2 Medications Medications Current Medications Ondansetron HCl (Zofran Inj) 4 mg Q6H PRN IV NAUSEA AND/OR VOMITING; Start 05/07/17 at 17:30 Acetaminophen (Tylenol Supp) 650 mg Q4H PRN [place] PAIN LEVEL 1-3 OR FEVER Last administered on 05/14/17 06:30; Admin Dose 650 MG; Start 05/07/17 at 17:30 Morphine Sulfate (morphine) 2 mg Q4H PRN IV PAIN LEVEL 7-10; Start 05/07/17 at 17:30 Enoxaparin Sodium (Lovenox) 30 mg DAILY SC Last administered on 05/17/17 08: 27; Admin Dose 30 MG; Start 05/08/17 at 09:00; Status Future hold Miscellaneous Information (* Miscellaneous Pharmacy Order) PATIENT'S OWN MEDICATI... DAILY XX ; Start 05/09/17 at 09:00 Levothyroxine Sodium (Synthroid) 137 mcg DAILY@06 NGT Last administered on 06:05; Admin Dose 137 MCG; Start 05/09/17 at 06:00 Allopurinol (Zyloprim) 100 mg DAILY PO Last administered on 05/17/17 08:27; Admin Dose 100 MG; Start 05/08/17 at 18:00 IV Flush (NS 10 ml) 10 ml PRN PRN IV IV PROTOCOL; Start 05/08/17 at 17:30 Lansoprazole (Prevacid) 30 mg DAILY@06 NGT Last administered on 05/17/17 06: 06; Admin Dose 30 MG; Start 05/12/17 at 06:00 Collagenase (Santyl) 1 applic DAILY TOP Last administered on 05/17/17 08:27; Admin Dose 1 APPLIC; Start 05/13/17 at 09:00 Nystatin 1 applic 1 applic BID TOP Last administered on 05/17/17 08:27; Admin Dose 1 APPLIC; Start 05/12/17 at 21:00 Ceftriaxone Sodium (Rocephin) 50 ml @ 100 mls/hr Q24H IVPB Last administered on 05/16/17 18:09; Admin Dose 100 MLS/HR; Start 05/12/17 at 16:00 Aspirin (Aspirin) 81 mg DAILY PO Last administered on 05/17/17 08:26; Admin Dose 81 MG; Start 05/13/17 at 09:00 Carbidopa/Levodopa (Sinemet (25/ 100)) 1 tab TID PO Last administered on 08:26; Admin Dose 1 TAB; Start 05/13/17 at 09:00 Potassium Chloride (Klor-Con 20) 20 meq BID PO Last administered on 05/17/17 08:27; Admin Dose 20 MEQ; Start 05/14/17 at 21:00 Hydralazine HCl (Apresoline) 10 mg Q4H PRN IV SBP>170; Start 05/15/17 at 13:30 Clonidine HCl 1 patch 1 patch Q7D TRANSDERM Last administered on 05/15/17 17: 18; Admin Dose 1 PATCH; Start 05/15/17 at 15:00 Vancomycin HCl (Vancocin) 250 ml @ 125 mls/hr Q12H IVPB Last administered on 05/17/17 03:37; Admin Dose 125 MLS/HR; Start 05/16/17 at 01:00 Miscellaneous Information (*Rx Drug Level Order Reminder*) 1 ONCE ONCE XX ; Start 05/17/17 at 12:00; Stop 05/17/17 at 12:01 LIBIA VERGARA NP May 17, 2017 09:14 LIBIA VERGARA NP May 17, 2017 09:14
--- NOTE | 2017-05-17 11:18 | PN ---
Date/Time of Note Date/Time of Note DATE: 05/17/17 TIME: : Assessment/Plan VTE Prophylaxis VTE Prophylaxis Intervention: other Lines/Catheters IV [facility] Urinary Cath still in place: Yes Reason Cath still needed: skin wounds contaminated by urine Assessment/Plan Chief Complaint/Hosp Course - Acute encephalopathy toxic metabolic - Possible encephalitis, Continue abx per ID. Dr. Forrest is following in neurology consultation. - Bilateral lower extremity cellulitis with wounds. Continue to biotics per ID. Dr. Stephens is following in infectious disease consultation. Dr Thomas is asked to see pt in podiatry consultation. - Polymicrobial urinary tract infection - Acute kidney injury, resolving. Dr. Cordoba is following in nephrology consultation. Continue IV fluids. Monitor electrolytes. - Acute respiratory insufficiency. Continue breathing treatment and oxygen supplementation. - Chronic obstructive pulmonary disease. - History of hypothyroidism. Continue levothyroxine. - History of peripheral vascular disease with history of vascular interventions. - History of Parkinson disease. Continue Sinemet. - History of osteoarthritis. - History of hyperlipidemia. Problems: Subjective 24 Hr Interval Summary Free Text/Dictation Patient has no complaints Exam/Review of Systems Vital Signs Vitals Vital Signs Date Time Temp Pulse Resp B/P Pulse Ox O2 Delivery O2 Flow Rate FiO2 05/17/17 08:42 66 05/17/17 08:30 Nasal Cannula 2.0 05/17/17 07:31 98.0 18 107/52 98 05/14/17 20:16 36 Intake and Output 05/16/17 05/16/17 05/17/17 15:00 23:00 07:00 Intake Total 350 ml 780 ml 200 ml Output Total 450 ml 500 ml Balance 350 ml 330 ml -300 ml Exam Constitutional: well developed Head: atraumatic, normocephalic Neck: supple Respiratory: diminished breath sounds Cardiovascular: regular rate and rhythm Gastrointestinal: non-tender, soft Extremities: normal pulses Results Result Diagram: 05/17/17 0604 05/17/17 0604 Results 24 hrs Laboratory Tests Test 05/17/17 06:04 White Blood Count 6.8 # Red Blood Count 2.73 L Hemoglobin 7.8 L Hematocrit 25.0 L Mean Corpuscular Volume 91.6 Mean Corpuscular Hemoglobin 28.6 L Mean Corpuscular Hemoglobin Concent 31.2 L Red Cell Distribution Width 15.0 H Platelet Count 282 # Mean Platelet Volume 11.6 H Neutrophils % 68.4 Lymphocytes % 12.0 L Monocytes % 11.9 H Eosinophils % 5.3 Basophils % 0.6 Nucleated Red Blood Cells % 0.0 Neutrophils # 4.7 Lymphocytes # 0.8 Monocytes # 0.8 Eosinophils # 0.4 Basophils # 0.0 Nucleated Red Blood Cells # 0.0 Sodium Level 138 Potassium Level 3.4 L Chloride Level 109 Carbon Dioxide Level 31 Anion Gap 1 L Blood Urea Nitrogen 14 Creatinine 0.65 Glucose Level 100 Calcium Level 7.9 L Magnesium Level 2.2 Medications Medications Current Medications Ondansetron HCl (Zofran Inj) 4 mg Q6H PRN IV NAUSEA AND/OR VOMITING; Start 05/07/17 at 17:30 Acetaminophen (Tylenol Supp) 650 mg Q4H PRN [place] PAIN LEVEL 1-3 OR FEVER Last administered on 05/14/17 06:30; Admin Dose 650 MG; Start 05/07/17 at 17:30 Morphine Sulfate (morphine) 2 mg Q4H PRN IV PAIN LEVEL 7-10; Start 05/07/17 at 17:30 Enoxaparin Sodium (Lovenox) 30 mg DAILY SC Last administered on 05/17/17 08: 27; Admin Dose 30 MG; Start 05/08/17 at 09:00; Status Future hold Miscellaneous Information (* Miscellaneous Pharmacy Order) PATIENT'S OWN MEDICATI... DAILY XX ; Start 05/09/17 at 09:00 Levothyroxine Sodium (Synthroid) 137 mcg DAILY@06 NGT Last administered on 06:05; Admin Dose 137 MCG; Start 05/09/17 at 06:00 Allopurinol (Zyloprim) 100 mg DAILY PO Last administered on 05/17/17 08:27; Admin Dose 100 MG; Start 05/08/17 at 18:00 IV Flush (NS 10 ml) 10 ml PRN PRN IV IV PROTOCOL; Start 05/08/17 at 17:30 Lansoprazole (Prevacid) 30 mg DAILY@06 NGT Last administered on 05/17/17 06: 06; Admin Dose 30 MG; Start 05/12/17 at 06:00 Collagenase (Santyl) 1 applic DAILY TOP Last administered on 05/17/17 08:27; Admin Dose 1 APPLIC; Start 05/13/17 at 09:00 Nystatin 1 applic 1 applic BID TOP Last administered on 05/17/17 08:27; Admin Dose 1 APPLIC; Start 05/12/17 at 21:00 Ceftriaxone Sodium (Rocephin) 50 ml @ 100 mls/hr Q24H IVPB Last administered on 05/16/17 18:09; Admin Dose 100 MLS/HR; Start 05/12/17 at 16:00 Aspirin (Aspirin) 81 mg DAILY PO Last administered on 05/17/17 08:26; Admin Dose 81 MG; Start 05/13/17 at 09:00 Carbidopa/Levodopa (Sinemet (25/ )) 1 tab TID PO Last administered on 08:26; Admin Dose 1 TAB; Start 05/13/17 at 09:00 Potassium Chloride (Klor-Con 20) 20 meq BID PO Last administered on 05/17/17 08:27; Admin Dose 20 MEQ; Start 05/14/17 at 21:00 Hydralazine HCl (Apresoline) 10 mg Q4H PRN IV SBP>170; Start 05/15/17 at 13:30 Clonidine HCl 1 patch 1 patch Q7D TRANSDERM Last administered on 05/15/17 17: 18; Admin Dose 1 PATCH; Start 05/15/17 at 15:00 Vancomycin HCl (Vancocin) 250 ml @ 125 mls/hr Q12H IVPB Last administered on 05/17/17 03:37; Admin Dose 125 MLS/HR; Start 05/16/17 at 01:00 Miscellaneous Information (*Rx Drug Level Order Reminder*) 1 ONCE ONCE XX ; Start 05/17/17 at 12:00; Stop 05/17/17 at 12:01 VENRON COWART May 17, 2017 11:18
--- NOTE | 2017-05-17 12:36 | CONS ---
Date/Time of Note Date/Time of Note DATE: 05/17/17 TIME: 12:35 Assessment/Plan Assessment/Plan Additional Assessment/Plan 1. Bradycardia, severe in the 20s in the setting of hyperkalemia. Continue to follow with resolution of bradycardia after improvement in hyperkalemia.-no recurrence since improvement in hyperkalemia/ nl tsh - HR in 50-60 now, sinus - no Class I indicationb for pacer - stable since admission 2. Abnormal electrocardiogram with baseline conduction system disease and right bundle branch block.-negative trop x 3/NL EF by echo this admit - no CP now 3. Hypotension-improved and stable off of anti-hypertensives - better now 4. Hyperkalemia, improved- BETTER 5. Renal failure, improved - renal team follows 6. Altered mental state/encephalopathy - multifactorial. 7. Anemia with acidosis - H/H stable now 8. Slurred speech secondary to low cardiac output and bradycardia versus transient ischemic attack/stroke.-remains with ams 9. Fevers Consultation Date/Type/Reason Admit Date/Time May 07, 2017 at 15:05 Initial Consult Date 05/08/17 Type of Consultation: ID Referring Provider: ABI GARCIA 24 HR Interval Summary Free Text/Dictation NO acute events - no araseli noted now - stable on tele ROS: No fever, no chills, no nausea, no vomiting, no diarrhea/constipation No recent weight changes No chest pain, no PND, no orthopnea No dizziness, blurred vision No thirst, no heat or cold intolerance Exam/Review of Systems Vital Signs Vitals Vital Signs Date Time Temp Pulse Resp B/P Pulse Ox O2 Delivery O2 Flow Rate FiO2 05/17/17 11:43 98.0 73 18 110/53 98 05/17/17 08:30 Nasal Cannula 2.0 05/14/17 20:16 36 Intake and Output 05/16/17 05/16/17 05/17/17 15:00 23:00 07:00 Intake Total 350 ml 780 ml 200 ml Output Total 450 ml 500 ml Balance 350 ml 330 ml -300 ml Exam General: WN/WD/NAD, AOx 1-2 HEENT: Unicetric/atraumatic/EOMI (follows some commands) NECK: JVD elevated, no thyromegaly Lymph: no lymphadenopathy HEART: regular with no S3, II/ systolic murmur at apex LUNGS: Coarse sounds ABD: soft, NT, ND, +BS : Intact Neuro: non focal SKIN: chronic changes EXT: trace edema Results Result Diagram: 05/17/17 0604 05/17/17 0604 Results 24 hrs Laboratory Tests Test 05/17/17 06:04 White Blood Count 6.8 # Red Blood Count 2.73 L Hemoglobin 7.8 L Hematocrit 25.0 L Mean Corpuscular Volume 91.6 Mean Corpuscular Hemoglobin 28.6 L Mean Corpuscular Hemoglobin Concent 31.2 L Red Cell Distribution Width 15.0 H Platelet Count 282 # Mean Platelet Volume 11.6 H Neutrophils % 68.4 Lymphocytes % 12.0 L Monocytes % 11.9 H Eosinophils % 5.3 Basophils % 0.6 Nucleated Red Blood Cells % 0.0 Neutrophils # 4.7 Lymphocytes # 0.8 Monocytes # 0.8 Eosinophils # 0.4 Basophils # 0.0 Nucleated Red Blood Cells # 0.0 Sodium Level 138 Potassium Level 3.4 L Chloride Level 109 Carbon Dioxide Level 31 Anion Gap 1 L Blood Urea Nitrogen 14 Creatinine 0.65 Glucose Level 100 Calcium Level 7.9 L Magnesium Level 2.2 Medications Medications Current Medications Ondansetron HCl (Zofran Inj) 4 mg Q6H PRN IV NAUSEA AND/OR VOMITING; Start 05/07/17 at 17:30 Acetaminophen (Tylenol Supp) 650 mg Q4H PRN [place] PAIN LEVEL 1-3 OR FEVER Last administered on 05/14/17 06:30; Admin Dose 650 MG; Start 05/07/17 at 17:30 Morphine Sulfate (morphine) 2 mg Q4H PRN IV PAIN LEVEL 7-10; Start 05/07/17 at 17:30 Enoxaparin Sodium (Lovenox) 30 mg DAILY SC Last administered on 05/17/17 08: 27; Admin Dose 30 MG; Start 05/08/17 at 09:00; Status Future hold Miscellaneous Information (* Miscellaneous Pharmacy Order) PATIENT'S OWN MEDICATI... DAILY XX ; Start 05/09/17 at 09:00 Levothyroxine Sodium (Synthroid) 137 mcg DAILY@06 NGT Last administered on 06:05; Admin Dose 137 MCG; Start 05/09/17 at 06:00 Allopurinol (Zyloprim) 100 mg DAILY PO Last administered on 05/17/17 08:27; Admin Dose 100 MG; Start 05/08/17 at 18:00 IV Flush (NS 10 ml) 10 ml PRN PRN IV IV PROTOCOL; Start 05/08/17 at 17:30 Lansoprazole (Prevacid) 30 mg DAILY@06 NGT Last administered on 05/17/17 06: 06; Admin Dose 30 MG; Start 05/12/17 at 06:00 Collagenase (Santyl) 1 applic DAILY TOP Last administered on 05/17/17 08:27; Admin Dose 1 APPLIC; Start 05/13/17 at 09:00 Nystatin (Nystatin Powder) 1 applic BID TOP Last administered on 05/17/17 08: 27; Admin Dose 1 APPLIC; Start 05/12/17 at 21:00 Aspirin (Aspirin) 81 mg DAILY PO Last administered on 05/17/17 08:26; Admin Dose 81 MG; Start 05/13/17 at 09:00 Carbidopa/Levodopa (Sinemet (25/ 100)) 1 tab TID PO Last administered on 08:26; Admin Dose 1 TAB; Start 05/13/17 at 09:00 Potassium Chloride (Klor-Con 20) 20 meq BID PO Last administered on 05/17/17 08:27; Admin Dose 20 MEQ; Start 05/14/17 at 21:00 Hydralazine HCl (Apresoline) 10 mg Q4H PRN IV SBP>170; Start 05/15/17 at 13:30 Clonidine HCl (Catapres-Tts 1 Patch) 1 patch Q7D TRANSDERM Last administered on 05/15/17 17:18; Admin Dose 1 PATCH; Start 05/15/17 at 15:00 Doxycycline Hyclate (Vibramycin) 100 mg BID PO ; Start 05/17/17 at 12:00; Stop 05/24/17 at 11:59 Amoxicillin (Amoxicillin) 500 mg Q6 PO ; Start 05/17/17 at 13:00; Stop at 12:59 VINNY SALINAS MD May 17, 2017 12:36
--- NOTE | 2017-05-17 13:31 | CONS ---
Date/Time of Note Date/Time of Note DATE: 05/17/17 TIME: 13:29 Assessment/Plan Assessment/Plan Additional Assessment/Plan 1. Hypokalemia- replet K, AM bmp 1. Severe symptomatic bradycardia- improved 2. GUY on possible CKD due to Prerenal azotemia - BUN/Cr - 14/0.65 stable 3. Possible CKD 4. Acute hyperkalemia due to GUY- now hypokaemia 5.AMs due to acute metabolic encephalopathy and bradycardia 6. H.o CHF 7. H/o HTN 8. h/o hypothyroidism 9/ H/o parkinsonism 10. Hyperuricemia without gout Plan: -Cr 0.65 today, Electrolytes stable, continue KCl 20MEQ PO BID -started on pureed nectar thick diet, pt refused to eat today- so we will continue IVF D51/2NS rate to 50 cc/hr - tomorrow we will reassess her in AM to discontinue IVF - On allopurinol 100mg po daily for hyperuricemia. - Renal US showed normal right kidney, left kidney not seen - will continue to follow up Plan of care cal [place] Consultation Date/Type/Reason Admit Date/Time May 07, 2017 at 15:05 Initial Consult Date 05/08/17 Type of Consultation: ID Referring Provider: ABI GARCIA 24 HR Interval Summary Free Text/Dictation Feels better, afebrile, seems comfortable, wants to go home.dw staff= no new event reported overnight. Detailed Summary Respiratory: no complaints Cardiovascular: no complaints Gastrointestinal: no complaints Exam/Review of Systems Vital Signs Vitals Vital Signs Date Time Temp Pulse Resp B/P Pulse Ox O2 Delivery O2 Flow Rate FiO2 05/17/17 12:39 60 05/17/17 11:43 98.0 18 110/53 98 05/17/17 08:30 Nasal Cannula 2.0 05/14/17 20:16 36 Intake and Output 05/16/17 05/16/17 05/17/17 15:00 23:00 07:00 Intake Total 350 ml 780 ml 200 ml Output Total 450 ml 500 ml Balance 350 ml 330 ml -300 ml Exam Constitutional: alert Cardiovascular: nl pulses Gastrointestinal: non-tender, soft Musculoskeletal: nl extremities to inspection Extremities: normal pulses Neurological: nl speech Results Result Diagram: 05/17/17 0604 05/17/17 0604 Results 24 hrs Laboratory Tests Test 05/17/17 06:04 White Blood Count 6.8 # Red Blood Count 2.73 L Hemoglobin 7.8 L Hematocrit 25.0 L Mean Corpuscular Volume 91.6 Mean Corpuscular Hemoglobin 28.6 L Mean Corpuscular Hemoglobin Concent 31.2 L Red Cell Distribution Width 15.0 H Platelet Count 282 # Mean Platelet Volume 11.6 H Neutrophils % 68.4 Lymphocytes % 12.0 L Monocytes % 11.9 H Eosinophils % 5.3 Basophils % 0.6 Nucleated Red Blood Cells % 0.0 Neutrophils # 4.7 Lymphocytes # 0.8 Monocytes # 0.8 Eosinophils # 0.4 Basophils # 0.0 Nucleated Red Blood Cells # 0.0 Sodium Level 138 Potassium Level 3.4 L Chloride Level 109 Carbon Dioxide Level 31 Anion Gap 1 L Blood Urea Nitrogen 14 Creatinine 0.65 Glucose Level 100 Calcium Level 7.9 L Magnesium Level 2.2 Medications Medications Current Medications Ondansetron HCl (Zofran Inj) 4 mg Q6H PRN IV NAUSEA AND/OR VOMITING; Start 05/07/17 at 17:30 Acetaminophen (Tylenol Supp) 650 mg Q4H PRN [place] PAIN LEVEL 1-3 OR FEVER Last administered on 05/14/17 06:30; Admin Dose 650 MG; Start 05/07/17 at 17:30 Morphine Sulfate (morphine) 2 mg Q4H PRN IV PAIN LEVEL 7-10; Start 05/07/17 at 17:30 Enoxaparin Sodium (Lovenox) 30 mg DAILY SC Last administered on 05/17/17 08: 27; Admin Dose 30 MG; Start 05/08/17 at 09:00; Status Future hold Miscellaneous Information (* Miscellaneous Pharmacy Order) PATIENT'S OWN MEDICATI... DAILY XX ; Start 05/09/17 at 09:00 Levothyroxine Sodium (Synthroid) 137 mcg DAILY@06 NGT Last administered on 06:05; Admin Dose 137 MCG; Start 05/09/17 at 06:00 Allopurinol (Zyloprim) 100 mg DAILY PO Last administered on 05/17/17 08:27; Admin Dose 100 MG; Start 05/08/17 at 18:00 IV Flush (NS 10 ml) 10 ml PRN PRN IV IV PROTOCOL; Start 05/08/17 at 17:30 Lansoprazole (Prevacid) 30 mg DAILY@06 NGT Last administered on 05/17/17 06: 06; Admin Dose 30 MG; Start 05/12/17 at 06:00 Collagenase (Santyl) 1 applic DAILY TOP Last administered on 05/17/17 08:27; Admin Dose 1 APPLIC; Start 05/13/17 at 09:00 Nystatin (Nystatin Powder) 1 applic BID TOP Last administered on 05/17/17 08: 27; Admin Dose 1 APPLIC; Start 05/12/17 at 21:00 Aspirin (Aspirin) 81 mg DAILY PO Last administered on 05/17/17 08:26; Admin Dose 81 MG; Start 05/13/17 at 09:00 Carbidopa/Levodopa (Sinemet (25/ 100)) 1 tab TID PO Last administered on 08:26; Admin Dose 1 TAB; Start 05/13/17 at 09:00 Potassium Chloride (Klor-Con 20) 20 meq BID PO Last administered on 05/17/17 08:27; Admin Dose 20 MEQ; Start 05/14/17 at 21:00 Hydralazine HCl (Apresoline) 10 mg Q4H PRN IV SBP>170; Start 05/15/17 at 13:30 Clonidine HCl (Catapres-Tts 1 Patch) 1 patch Q7D TRANSDERM Last administered on 05/15/17 17:18; Admin Dose 1 PATCH; Start 05/15/17 at 15:00 Doxycycline Hyclate (Vibramycin) 100 mg BID PO ; Start 05/17/17 at 12:00; Stop 05/24/17 at 11:59 Amoxicillin (Amoxicillin) 500 mg Q6 PO ; Start 05/17/17 at 13:00; Stop at 12:59 Ketoconazole (Nizoral Cr) 1 applic DAILY TOP ; Start 05/18/17 at 09:00 Collagenase (Santyl) 1 applic DAILY TOP ; Start 05/17/17 at 14:00 PANCHO SIGALA May 17, 2017 13:31
[2017-05-17] MEDS: DOXYCYCLINE 100 MG TAB PO SCH ×2 (14:01→21:30)
[2017-05-17] MEDS: AMOXICILLIN 500 MG CAP PO SCH ×3 (14:01→21:30)
--- NOTE | 2017-05-17 14:44 | CONS ---
Date/Time of Note Date/Time of Note DATE: 05/17/17 TIME: 14:42 Assessment/Plan Assessment/Plan Chief Complaint/Hosp Course Altered mental status, Parkinson's disease Problems: Additional Assessment/Plan 77 year old female with CHF, HTN, HLD, Parkinson's, COPD, arthritis admitted with aphasia, bradycardia and hyperkalemia and was found to be altered and confused. MRI Brain w/o contrast: 1. No acute or early subacute ischemic infarction or intracranial hemorrhage. 2. Mild chronic microvascular ischemic changes and age related volume loss. Recommendations: ASA 81 mg daily Continue Parkinson's medications concern for possibly underlying encephalopathy unfortunately she was unable to tolerate LP due to severe agitation possible delirium and worsening of baseline dementia Will follow Consultation Date/Type/Reason Admit Date/Time May 07, 2017 at 15:05 Initial Consult Date 05/08/17 Type of Consultation: ID Referring Provider: ABI GARCIA 24 HR Interval Summary Free Text/Dictation Clinically unchanged Exam/Review of Systems Vital Signs Vitals Vital Signs Date Time Temp Pulse Resp B/P Pulse Ox O2 Delivery O2 Flow Rate FiO2 05/17/17 12:39 60 05/17/17 11:43 98.0 18 110/53 98 05/17/17 08:30 Nasal Cannula 2.0 05/14/17 20:16 36 Intake and Output 05/16/17 05/16/17 05/17/17 15:00 23:00 07:00 Intake Total 350 ml 780 ml 200 ml Output Total 450 ml 500 ml Balance 350 ml 330 ml -300 ml Exam Constitutional: alert Psych: nl mood/affect, no complaints Head: atraumatic, normocephalic Eyes: EOMI, nl conjunctiva, nl lids ENMT: nl external ears & nose, nl lips & teeth, nl nasal mucosa & septum Neck: non-tender, supple Respiratory: clear to auscultation, normal air movement Cardiovascular: nl pulses, regular rate and rhythm Gastrointestinal: nl liver, spleen, non-tender, soft 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, nl speech, other (Limited exam, following simple commands) Results Result Diagram: 05/17/17 0604 05/17/17 0604 Results 24 hrs Laboratory Tests Test 05/17/17 06:04 White Blood Count 6.8 # Red Blood Count 2.73 L Hemoglobin 7.8 L Hematocrit 25.0 L Mean Corpuscular Volume 91.6 Mean Corpuscular Hemoglobin 28.6 L Mean Corpuscular Hemoglobin Concent 31.2 L Red Cell Distribution Width 15.0 H Platelet Count 282 # Mean Platelet Volume 11.6 H Neutrophils % 68.4 Lymphocytes % 12.0 L Monocytes % 11.9 H Eosinophils % 5.3 Basophils % 0.6 Nucleated Red Blood Cells % 0.0 Neutrophils # 4.7 Lymphocytes # 0.8 Monocytes # 0.8 Eosinophils # 0.4 Basophils # 0.0 Nucleated Red Blood Cells # 0.0 Sodium Level 138 Potassium Level 3.4 L Chloride Level 109 Carbon Dioxide Level 31 Anion Gap 1 L Blood Urea Nitrogen 14 Creatinine 0.65 Glucose Level 100 Calcium Level 7.9 L Magnesium Level 2.2 Medications Medications Current Medications Ondansetron HCl (Zofran Inj) 4 mg Q6H PRN IV NAUSEA AND/OR VOMITING; Start 05/07/17 at 17:30 Acetaminophen (Tylenol Supp) 650 mg Q4H PRN [place] PAIN LEVEL 1-3 OR FEVER Last administered on 05/14/17 06:30; Admin Dose 650 MG; Start 05/07/17 at 17:30 Morphine Sulfate (morphine) 2 mg Q4H PRN IV PAIN LEVEL 7-10; Start 05/07/17 at 17:30 Enoxaparin Sodium (Lovenox) 30 mg DAILY SC Last administered on 05/17/17 08: 27; Admin Dose 30 MG; Start 05/08/17 at 09:00; Status Future hold Miscellaneous Information (* Miscellaneous Pharmacy Order) PATIENT'S OWN MEDICATI... DAILY XX ; Start 05/09/17 at 09:00 Levothyroxine Sodium (Synthroid) 137 mcg DAILY@06 NGT Last administered on 06:05; Admin Dose 137 MCG; Start 05/09/17 at 06:00 Allopurinol (Zyloprim) 100 mg DAILY PO Last administered on 05/17/17 08:27; Admin Dose 100 MG; Start 05/08/17 at 18:00 IV Flush (NS 10 ml) 10 ml PRN PRN IV IV PROTOCOL; Start 05/08/17 at 17:30 Lansoprazole (Prevacid) 30 mg DAILY@06 NGT Last administered on 05/17/17 06: 06; Admin Dose 30 MG; Start 05/12/17 at 06:00 Collagenase (Santyl) 1 applic DAILY TOP Last administered on 05/17/17 08:27; Admin Dose 1 APPLIC; Start 05/13/17 at 09:00 Nystatin (Nystatin Powder) 1 applic BID TOP Last administered on 05/17/17 08: 27; Admin Dose 1 APPLIC; Start 05/12/17 at 21:00 Aspirin (Aspirin) 81 mg DAILY PO Last administered on 05/17/17 08:26; Admin Dose 81 MG; Start 05/13/17 at 09:00 Carbidopa/Levodopa (Sinemet (25/ 100)) 1 tab TID PO Last administered on 14:01; Admin Dose 1 TAB; Start 05/13/17 at 09:00 Potassium Chloride (Klor-Con 20) 20 meq BID PO Last administered on 05/17/17 08:27; Admin Dose 20 MEQ; Start 05/14/17 at 21:00 Hydralazine HCl (Apresoline) 10 mg Q4H PRN IV SBP>170; Start 05/15/17 at 13:30 Clonidine HCl (Catapres-Tts 1 Patch) 1 patch Q7D TRANSDERM Last administered on 05/15/17 17:18; Admin Dose 1 PATCH; Start 05/15/17 at 15:00 Doxycycline Hyclate (Vibramycin) 100 mg BID PO Last administered on 05/17/17 14:01; Admin Dose 100 MG; Start 05/17/17 at 12:00; Stop 05/24/17 at 11:59 Amoxicillin (Amoxicillin) 500 mg Q6 PO Last administered on 05/17/17 14:01; Admin Dose 500 MG; Start 05/17/17 at 13:00; Stop 05/24/17 at 12:59 Ketoconazole (Nizoral Cr) 1 applic DAILY TOP ; Start 05/18/17 at 09:00 Collagenase (Santyl) 1 applic DAILY TOP ; Start 05/17/17 at 14:00 FREDRICK KIRKPATRICK MD May 17, 2017 14:44
[2017-05-17] MEDS: ALBUTEROL 0.083% (NEB) 2.5 MG/3 ML AMP NEB PRN (20:41)
[2017-05-17] MEDS: morphine 2 MG INJ IV PRN (22:05)
[2017-05-18] VITALS (12 sets, daily range): BP systolic 121–141; BP diastolic 58–68; PULSE 66–79; RESP 16–18
[2017-05-18] MEDS: AMOXICILLIN 500 MG CAP PO SCH ×4 (06:19→21:02)
[2017-05-18] MEDS: LEVOTHYROXINE 137 MCG TAB NGT SCH (06:19)
[2017-05-18] MEDS: LANSOPRAZOLE 30 MG CAP NGT SCH (06:19)
--- NOTE | 2017-05-18 07:10 | CONS ---
DATE OF ADMISSION: 05/07/2017 DATE OF CONSULTATION: 05/17/2017 REASON FOR CONSULTATION: Cellulitis and bilateral foot ulcerations. HISTORY OF PRESENT ILLNESS: This is a 77-year-old female who was admitted for acute encephalopathy, sepsis, has been on doxycycline and amoxicillin, the patient with multiple medical issues. I was asked to evaluate for cellulitis and foot ulcerations. The patient with a history of bilateral leg pain and venous stasis insufficiency with ulceration. PAST MEDICAL HISTORY: Parkinson's, COPD, arthritis, hypothyroidism, hyperlipidemia, generalized weakness, pulmonary edema, diastolic heart failure, and polymicrobial UTI. MEDICATIONS: 1. Tylenol. 2. Albuterol. 3. Carbidopa. 4. Voltaren gel. 5. Lasix. 6. Newton. 7. Levothyroxine. 8. Metolazone. 9. Potassium chloride. 10. Pramipexole. 11. Simethicone 12. Vancomycin. 13. Doxycycline. 14. Amoxicillin. Had been on vancomycin and ceftriaxone. PAST SURGICAL HISTORY: Unknown. SOCIAL HISTORY: No tobacco or alcohol. PHYSICAL EXAMINATION: VITAL SIGNS: Temperature 98, pulse 73, respiratory rate 18, blood pressure 110/ 53, pulse ox is 98%. GENERAL: Patient awake, in no acute distress. Regular respiration. ABDOMEN: Obese. EXTREMITIES: Patient with 2+ pitting edema, bilateral lower extremities. There is epidermolysis of skin on the dorsal aspect of the right foot, presence of tinea, mycotic nails, skin subcutaneous atrophy, hallux valgus deformity. There are bilateral knee contusions, dry eschars, right lower leg abrasion 2 x 2 cm, posterior aspect venous ulceration 1 x 1 cm, left lateral lower leg with ulceration 4 x 3 cm with skin necrosis at the right posterior medial heel with blister with clear fluid, approximately 4 x 4 cm. There is a contusion, deep tissue injury of undetermined depth to the lateral aspect of the right heel, left heel blister 3 x 2 cm. There is bilateral lower extremity cellulitis. This appears to be resolving with decreased edema, presence of skin wrinkles. No malodor. Ultrasound venous normal compressibility of the bilateral common femoral, deep femoral, superficial femoral and popliteal veins. The extremities were warm to touch. There is a 1+ DP pulse bilaterally. LABORATORIES: WBC 6.8, hemoglobin 7.8, hematocrit 25, platelets 282. Sodium 138, potassium 3.4, chloride is 109, CO2 of 31, BUN 14, creatinine 0.65. Cultures include coag negative staph, Enterococcus species. Nares culture negative for MRSA. Blood cultures no growth. Urine culture Klebsiella pneumoniae and Streptococcus agalactiae group B. ASSESSMENT: 1. Bilateral lower extremity cellulitis. 2. Pitting edema, bilateral lower extremities. 3. Venous stasis with ulceration. 4. Tinea. 5. Onychomycosis. 6. Deep tissue injury of undetermined depth to the right lateral heel. 7. Pressure ulceration stage I bilateral heels. 8. Left lateral lower leg venous stasis ulceration with skin necrosis. 9. Urinary tract infection. 10. Severe bradycardia. 11. Acute on chronic kidney disease. 12. Hyperkalemia. 13. Hypothyroidism. 14. Parkinson's. 15. Hyperuricemia without gout. PLAN: The patient seen and evaluated. Discussed plan of care. There is some improvement of lower extremities. The patient has been seen by ID and recommended oral antibiotics at time of discharge. I would add to current treatments twice a day cleansing of lower extremity with chlorhexidine and application of topical antifungal. Patient would benefit from use of Prevalon boots. Recommend monitoring of deep tissue injury to bilateral heels. Consider obtaining arterial tests with pulse volume recordings and ABIs. Coordination of care discussed with nursing and orders entered. Dictated By: ASHISH SALAS/VERONIKA Conf#: [id number] DID#: [id number] MTDD
[2017-05-18] MEDS: CARBIDOPA/LEVODOPA (25/100) TAB PO SCH ×3 (08:47→21:02)
[2017-05-18] MEDS: ALLOPURINOL 100 MG TAB PO SCH (08:48)
[2017-05-18] MEDS: ASPIRIN 81 MG TAB PO SCH (08:48)
[2017-05-18] MEDS: DOXYCYCLINE 100 MG TAB PO SCH ×2 (08:48→21:02)
[2017-05-18] MEDS: POTASSIUM CHLORIDE (SR) 20 MEQ TAB PO SCH ×2 (08:48→21:02)
[2017-05-18] MEDS: KETOCONAZOLE 2% 15 GM CR TOP SCH (08:49)
[2017-05-18] MEDS: COLLAGENASE 30 GM TUBE TOP SCH ×2 (08:49→08:58)
[2017-05-18] MEDS: NYSTATIN 30 GM POWDER BTL TOP SCH ×2 (08:51→21:02)
[2017-05-18] MEDS: ENOXAPARIN 30 MG/0.3 ML SYG SC SCH (08:57)
[2017-05-18] MEDS: [UNRECOGNIZED DRUG - REMARK] XX SCH (09:00)
--- NOTE | 2017-05-18 12:36 | PN ---
Date/Time of Note Date/Time of Note DATE: 05/18/17 TIME: 12:35 Assessment/Plan VTE Prophylaxis VTE Prophylaxis Intervention: other Lines/Catheters IV Catheter Type (from Nrsg): Saline Lock Urinary Cath still in place: Yes Reason Cath still needed: skin wounds contaminated by urine Assessment/Plan Chief Complaint/Hosp Course - Acute encephalopathy toxic metabolic - Possible encephalitis, Continue abx per ID. Dr. Forrest is following in neurology consultation. - Bilateral lower extremity cellulitis with wounds. Continue to biotics per ID. Dr. Stephens is following in infectious disease consultation. Dr Thomas is asked to see pt in podiatry consultation. - Polymicrobial urinary tract infection - Acute kidney injury, resolving. Dr. Cordoba is following in nephrology consultation. Continue IV fluids. Monitor electrolytes. - Acute respiratory insufficiency. Continue breathing treatment and oxygen supplementation. - Chronic obstructive pulmonary disease. - History of hypothyroidism. Continue levothyroxine. - History of peripheral vascular disease with history of vascular interventions. - History of Parkinson disease. Continue Sinemet. - History of osteoarthritis. - History of hyperlipidemia. Problems: Subjective 24 Hr Interval Summary Free Text/Dictation Patient has no complaints Exam/Review of Systems Vital Signs Vitals Vital Signs Date Time Temp Pulse Resp B/P Pulse Ox O2 Delivery O2 Flow Rate FiO2 05/18/17 12:16 75 05/18/17 11:20 2.0 05/18/17 07:21 98.0 18 125/58 98 05/18/17 01:09 27 05/17/17 20:00 Nasal Cannula Intake and Output 05/17/17 05/17/17 05/18/17 15:00 23:00 07:00 Intake Total 700 ml 200 ml Output Total 500 ml Balance 200 ml 200 ml Exam Constitutional: well developed Head: atraumatic, normocephalic Neck: supple Respiratory: clear to auscultation Cardiovascular: regular rate and rhythm Gastrointestinal: non-tender, soft Extremities: normal pulses Results Result Diagram: 05/17/1760305/17/17603 Medications Medications Current Medications Ondansetron HCl (Zofran Inj) 4 mg Q6H PRN IV NAUSEA AND/OR VOMITING; Start 05/07/17 at 17:30 Acetaminophen (Tylenol Supp) 650 mg Q4H PRN [place] PAIN LEVEL 1-3 OR FEVER Last administered on 05/14/17 06:30; Admin Dose 650 MG; Start 05/07/17 at 17:30 Morphine Sulfate (morphine) 2 mg Q4H PRN IV PAIN LEVEL 7-10 Last administered on 05/17/17 22:05; Admin Dose 2 MG; Start 05/07/17 at 17:30 Enoxaparin Sodium (Lovenox) 30 mg DAILY SC Last administered on 05/18/17 08: 57; Admin Dose 30 MG; Start 05/08/17 at 09:00; Status Future hold Miscellaneous Information (* Miscellaneous Pharmacy Order) PATIENT'S OWN MEDICATI... DAILY XX ; Start 05/09/17 at 09:00 Levothyroxine Sodium (Synthroid) 137 mcg DAILY@06 NGT Last administered on 06:19; Admin Dose 137 MCG; Start 05/09/17 at 06:00 Allopurinol (Zyloprim) 100 mg DAILY PO Last administered on 05/18/17 08:48; Admin Dose 100 MG; Start 05/08/17 at 18:00 IV Flush (NS 10 ml) 10 ml PRN PRN IV IV PROTOCOL; Start 05/08/17 at 17:30 Lansoprazole (Prevacid) 30 mg DAILY@06 NGT Last administered on 05/18/17 06: 19; Admin Dose 30 MG; Start 05/12/17 at 06:00 Collagenase (Santyl) 1 applic DAILY TOP Last administered on 05/18/17 08:49; Admin Dose 1 APPLIC; Start 05/13/17 at 09:00 Nystatin (Nystatin Powder) 1 applic BID TOP Last administered on 05/18/17 08: 51; Admin Dose 1 APPLIC; Start 05/12/17 at 21:00 Aspirin (Aspirin) 81 mg DAILY PO Last administered on 05/18/17 08:48; Admin Dose 81 MG; Start 05/13/17 at 09:00 Carbidopa/Levodopa (Sinemet (25/ 100)) 1 tab TID PO Last administered on 08:47; Admin Dose 1 TAB; Start 05/13/17 at 09:00 Potassium Chloride (Klor-Con 20) 20 meq BID PO Last administered on 05/18/17 08:48; Admin Dose 20 MEQ; Start 05/14/17 at 21:00 Hydralazine HCl (Apresoline) 10 mg Q4H PRN IV SBP>170; Start 05/15/17 at 13:30 Clonidine HCl (Catapres-Tts 1 Patch) 1 patch Q7D TRANSDERM Last administered on 05/15/17 17:18; Admin Dose 1 PATCH; Start 05/15/17 at 15:00 Doxycycline Hyclate (Vibramycin) 100 mg BID PO Last administered on 05/18/17 08:48; Admin Dose 100 MG; Start 05/17/17 at 12:00; Stop 05/24/17 at 11:59 Amoxicillin (Amoxicillin) 500 mg Q6 PO Last administered on 05/18/17 06:19; Admin Dose 500 MG; Start 05/17/17 at 13:00; Stop 05/24/17 at 12:59 Ketoconazole (Nizoral Cr) 1 applic DAILY TOP Last administered on 05/18/17 08 :49; Admin Dose 1 APPLIC; Start 05/18/17 at 09:00 Collagenase (Santyl) 1 applic DAILY TOP ; Start 05/17/17 at 14:00 VERNON COWART May 18, 2017 12:35
--- NOTE | 2017-05-18 12:46 | CONS ---
Date/Time of Note Date/Time of Note DATE: 05/18/17 TIME: 12:44 Assessment/Plan Assessment/Plan Additional Assessment/Plan 1. Bradycardia, severe in the 20s in the setting of hyperkalemia. Continue to follow with resolution of bradycardia after improvement in hyperkalemia.-no recurrence since improvement in hyperkalemia/ nl tsh - HR in 50-60 now, sinus - no Class I indicationb for pacer - stable since admission - HR STABLE 2. Abnormal electrocardiogram with baseline conduction system disease and right bundle branch block.-negative trop x 3/NL EF by echo this admit - no CP now 3. Hypotension-improved and stable off of anti-hypertensives - better now, not dizzy 4. Hyperkalemia, improved- BETTER 5. Renal failure, improved - renal team follows 6. Altered mental state/encephalopathy - multifactorial - sleepy but abusable 7. Anemia with acidosis - H/H stable now 8. Slurred speech secondary to low cardiac output and bradycardia versus transient ischemic attack/stroke.-remains with ams 9. Fevers Consultation Date/Type/Reason Admit Date/Time May 07, 2017 at 15:05 Initial Consult Date 05/08/17 Type of Consultation: ID Referring Provider: ABI GARCIA 24 HR Interval Summary Free Text/Dictation NO acute events - not araseli on tele - HR in good range ROS: No fever, no chills, no nausea, no vomiting, no diarrhea/constipation No recent weight changes No chest pain, no PND, no orthopnea No dizziness, blurred vision No thirst, no heat or cold intolerance Exam/Review of Systems Vital Signs Vitals Vital Signs Date Time Temp Pulse Resp B/P Pulse Ox O2 Delivery O2 Flow Rate FiO2 05/18/17 12:16 75 05/18/17 11:20 2.0 05/18/17 07:21 98.0 18 125/58 98 05/18/17 01:09 27 05/17/17 20:00 Nasal Cannula Intake and Output 05/17/17 05/17/17 05/18/17 15:00 23:00 07:00 Intake Total 700 ml 200 ml Output Total 500 ml Balance 200 ml 200 ml Exam General: WN/WD/NAD, AOx comfortable , sleepy HEENT: Unicetric/atraumatic/EOMI (does not follow commands) NECK: JVD elevated, no thyromegaly Lymph: no lymphadenopathy HEART: regular with no S3, II/ systolic murmur at apex LUNGS: Coarse sounds ABD: soft, NT, ND, +BS : Intact Neuro: non focal SKIN: chronic changes EXT: trace edema Results Result Diagram: 05/17/17 0604 05/17/17 06 Medications Medications Current Medications Ondansetron HCl (Zofran Inj) 4 mg Q6H PRN IV NAUSEA AND/OR VOMITING; Start 05/07/17 at 17:30 Acetaminophen (Tylenol Supp) 650 mg Q4H PRN [place] PAIN LEVEL 1-3 OR FEVER Last administered on 05/14/17 06:30; Admin Dose 650 MG; Start 05/07/17 at 17:30 Morphine Sulfate (morphine) 2 mg Q4H PRN IV PAIN LEVEL 7-10 Last administered on 05/17/17 22:05; Admin Dose 2 MG; Start 05/07/17 at 17:30 Enoxaparin Sodium (Lovenox) 30 mg DAILY SC Last administered on 05/18/17 08: 57; Admin Dose 30 MG; Start 05/08/17 at 09:00; Status Future hold Miscellaneous Information (* Miscellaneous Pharmacy Order) PATIENT'S OWN MEDICATI... DAILY XX ; Start 05/09/17 at 09:00 Levothyroxine Sodium (Synthroid) 137 mcg DAILY@06 NGT Last administered on 06:19; Admin Dose 137 MCG; Start 05/09/17 at 06:00 Allopurinol (Zyloprim) 100 mg DAILY PO Last administered on 05/18/17 08:48; Admin Dose 100 MG; Start 05/08/17 at 18:00 IV Flush (NS 10 ml) 10 ml PRN PRN IV IV PROTOCOL; Start 05/08/17 at 17:30 Lansoprazole (Prevacid) 30 mg DAILY@06 NGT Last administered on 05/18/17 06: 19; Admin Dose 30 MG; Start 05/12/17 at 06:00 Collagenase (Santyl) 1 applic DAILY TOP Last administered on 05/18/17 08:49; Admin Dose 1 APPLIC; Start 05/13/17 at 09:00 Nystatin (Nystatin Powder) 1 applic BID TOP Last administered on 05/18/17 08: 51; Admin Dose 1 APPLIC; Start 05/12/17 at 21:00 Aspirin (Aspirin) 81 mg DAILY PO Last administered on 05/18/17 08:48; Admin Dose 81 MG; Start 05/13/17 at 09:00 Carbidopa/Levodopa (Sinemet (25/ 100)) 1 tab TID PO Last administered on 08:47; Admin Dose 1 TAB; Start 05/13/17 at 09:00 Potassium Chloride (Klor-Con 20) 20 meq BID PO Last administered on 05/18/17 08:48; Admin Dose 20 MEQ; Start 05/14/17 at 21:00 Hydralazine HCl (Apresoline) 10 mg Q4H PRN IV SBP>170; Start 05/15/17 at 13:30 Clonidine HCl (Catapres-Tts 1 Patch) 1 patch Q7D TRANSDERM Last administered on 05/15/17 17:18; Admin Dose 1 PATCH; Start 05/15/17 at 15:00 Doxycycline Hyclate (Vibramycin) 100 mg BID PO Last administered on 05/18/17 08:48; Admin Dose 100 MG; Start 05/17/17 at 12:00; Stop 05/24/17 at 11:59 Amoxicillin (Amoxicillin) 500 mg Q6 PO Last administered on 05/18/17 06:19; Admin Dose 500 MG; Start 05/17/17 at 13:00; Stop 05/24/17 at 12:59 Ketoconazole (Nizoral Cr) 1 applic DAILY TOP Last administered on 05/18/17 08 :49; Admin Dose 1 APPLIC; Start 05/18/17 at 09:00 Collagenase (Santyl) 1 applic DAILY TOP ; Start 05/17/17 at 14:00 VINNY SALINAS MD May 18, 2017 12:46
--- NOTE | 2017-05-18 13:55 | CONS ---
Date/Time of Note Date/Time of Note DATE: 05/18/17 TIME: 13:43 Assessment/Plan Assessment/Plan Additional Assessment/Plan 1. Hypokalemia as of yesterday, will do BMP stat, AM bmp-fu. 1. Severe symptomatic bradycardia- improved 2. GUY on possible CKD due to Prerenal azotemia - BUN/Cr - 14/0.65 stable 3. Possible CKD 4. Acute hyperkalemia due to GUY- now hypokaemia 5.AMs due to acute metabolic encephalopathy and bradycardia 6. H.o CHF 7. H/o HTN 8. h/o hypothyroidism 9/ H/o parkinsonism 10. Hyperuricemia without gout Plan: -Cr 0.65 as of yesterday today, continue KCl 20MEQ PO BID -started on pureed nectar thick diet, pt refused to eat today- so we will continue IVF D51/2NS rate to 50 cc/hr - tomorrow we will reassess her in AM to discontinue IVF - On allopurinol 100mg po daily for hyperuricemia. - Renal US showed normal right kidney, left kidney not seen - will continue to follow up Plan of care cal [place] Consultation Date/Type/Reason Admit Date/Time May 07, 2017 at 15:05 Initial Consult Date 05/08/17 Type of Consultation: NEPHROLOGY Referring Provider: ABI GARCIA 24 HR Interval Summary Free Text/Dictation resting in bed, afebrile, alert/awake/responsive. denies any new complaints. dw staff Detailed Summary Respiratory: no complaints Cardiovascular: no complaints Gastrointestinal: no complaints Genitourinary: no complaints Musculoskeletal: no complaints Neurologic: no complaints Exam/Review of Systems Vital Signs Vitals Vital Signs Date Time Temp Pulse Resp B/P Pulse Ox O2 Delivery O2 Flow Rate FiO2 05/18/17 12:41 98.0 78 18 121/68 99 05/18/17 11:20 2.0 05/18/17 01:09 27 05/17/17 20:00 Nasal Cannula Intake and Output 05/17/17 05/17/17 05/18/17 15:00 23:00 07:00 Intake Total 700 ml 200 ml Output Total 500 ml Balance 200 ml 200 ml Exam Constitutional: alert, well developed Psych: nl mood/affect Cardiovascular: other (s1s2) Gastrointestinal: non-tender, soft Musculoskeletal: nl extremities to inspection Extremities: normal pulses Neurological: confused (at times.), nl speech, other (oriented to person, place ) Results Result Diagram: 05/17/1704 05/17/17 06 Medications Medications Current Medications Ondansetron HCl (Zofran Inj) 4 mg Q6H PRN IV NAUSEA AND/OR VOMITING; Start 05/07/17 at 17:30 Acetaminophen (Tylenol Supp) 650 mg Q4H PRN [place] PAIN LEVEL 1-3 OR FEVER Last administered on 05/14/17 06:30; Admin Dose 650 MG; Start 05/07/17 at 17:30 Morphine Sulfate (morphine) 2 mg Q4H PRN IV PAIN LEVEL 7-10 Last administered on 05/17/17 22:05; Admin Dose 2 MG; Start 05/07/17 at 17:30 Enoxaparin Sodium (Lovenox) 30 mg DAILY SC Last administered on 05/18/17 08: 57; Admin Dose 30 MG; Start 05/08/17 at 09:00; Status Future hold Miscellaneous Information (* Miscellaneous Pharmacy Order) PATIENT'S OWN MEDICATI... DAILY XX ; Start 05/09/17 at 09:00 Levothyroxine Sodium (Synthroid) 137 mcg DAILY@06 NGT Last administered on 06:19; Admin Dose 137 MCG; Start 05/09/17 at 06:00 Allopurinol (Zyloprim) 100 mg DAILY PO Last administered on 05/18/17 08:48; Admin Dose 100 MG; Start 05/08/17 at 18:00 IV Flush (NS 10 ml) 10 ml PRN PRN IV IV PROTOCOL; Start 05/08/17 at 17:30 Lansoprazole (Prevacid) 30 mg DAILY@06 NGT Last administered on 05/18/17 06: 19; Admin Dose 30 MG; Start 05/12/17 at 06:00 Collagenase (Santyl) 1 applic DAILY TOP Last administered on 05/18/17 08:49; Admin Dose 1 APPLIC; Start 05/13/17 at 09:00 Nystatin (Nystatin Powder) 1 applic BID TOP Last administered on 05/18/17 08: 51; Admin Dose 1 APPLIC; Start 05/12/17 at 21:00 Aspirin (Aspirin) 81 mg DAILY PO Last administered on 05/18/17 08:48; Admin Dose 81 MG; Start 05/13/17 at 09:00 Carbidopa/Levodopa (Sinemet (25/ 100)) 1 tab TID PO Last administered on 12:47; Admin Dose 1 TAB; Start 05/13/17 at 09:00 Potassium Chloride (Klor-Con 20) 20 meq BID PO Last administered on 05/18/17 08:48; Admin Dose 20 MEQ; Start 05/14/17 at 21:00 Hydralazine HCl (Apresoline) 10 mg Q4H PRN IV SBP>170; Start 05/15/17 at 13:30 Clonidine HCl (Catapres-Tts 1 Patch) 1 patch Q7D TRANSDERM Last administered on 05/15/17 17:18; Admin Dose 1 PATCH; Start 05/15/17 at 15:00 Doxycycline Hyclate (Vibramycin) 100 mg BID PO Last administered on 05/18/17 08:48; Admin Dose 100 MG; Start 05/17/17 at 12:00; Stop 05/24/17 at 11:59 Amoxicillin (Amoxicillin) 500 mg Q6 PO Last administered on 05/18/17 12:47; Admin Dose 500 MG; Start 05/17/17 at 13:00; Stop 05/24/17 at 12:59 Ketoconazole (Nizoral Cr) 1 applic DAILY TOP Last administered on 05/18/17 08 :49; Admin Dose 1 APPLIC; Start 05/18/17 at 09:00 Collagenase (Santyl) 1 applic DAILY TOP ; Start 05/17/17 at 14:00 PANCHO SIGALA May 18, 2017 13:55 Amoxicillin (Amoxicillin) 500 mg Q6 PO Last administered on 05/18/17 12:47; Admin Dose 500 MG; Start 05/17/17 at 13:00; Stop 05/24/17 at 12:59 Ketoconazole (Nizoral Cr) 1 applic DAILY TOP Last administered on 05/18/17 08 :49; Admin Dose 1 APPLIC; Start 05/18/17 at 09:00 Collagenase (Santyl) 1 applic DAILY TOP ; Start 05/17/17 at 14:00 PANCHO SIGALA May 18, 2017 13:55
--- NOTE | 2017-05-18 14:28 | CONS ---
Date/Time of Note Date/Time of Note DATE: 05/18/17 TIME: 14:23 Assessment/Plan Assessment/Plan Chief Complaint/Hosp Course ID PROGRESS NOTE CURRENT ABX: DAY # 11=> Doxycycline PO #2 + Amoxicillin po #2 for wounds s/p Vanco IV +Ceftriaxone x 10 days 24H INTERVAL SUMMARY * Awake, alert, responsive, cooperative, no fevers, VSS NAD, no photophobia, no meningismus * Calm, obese, has difficulty moving her body around on pressure reducing mattress, requests frequent help w/repositioning. * Left cephalic vein thrombus * LEG WOUND CX: WOUND CULTURE Final Organism 1 COAGULASE NEGATIVE STAPH QUANTITY 3+ Organism 2 ENTEROCOCCUS SPECIES QUANTITY ISOLATED FROM BROTH ONLY COAG NEG ENT SPS M.I.C. RX M.I.C. RX --------- --- --------- --- AMPICILLIN <=2 S CEFAZOLIN R CIPROFLOXACIN >=8 R CLINDAMYCIN <=0.25 S DOXYCYCLINE S ERYTHROMYCIN >=8 R LEVOFLOXACIN >=8 R OXACILLIN >=4 R PENICILLIN-G >=0.5 R 8 S RIFAMPIN <=0.5 S VANCOMYCIN 1 S 1 S TRIMETHOPRIM/SULFAMETHOXAZOLE 160 R Physical Exam Physical Exam Constitutional: VSS, NAD, awake and responsive HEENT: Unremarkable Neck: Supple, full ROM Respiratory: clear to auscultation, normal air movement Cardiovascular: Pulse NL Gastrointestinal: Soft, NT Extremities: Warm, cellulitis w/open wound DSG c/D/I ID ASSESSMENT 77 yo Morbid Obese F w/ PMHX Parkinson's Dementia admit with: 1. Acute encephalopathy, likely toxic metabolic. * ==> LP not done 2 to pt's noncompliance, serology WNV neg 2. Bilateral lower extremity ongoing cellulitis with chronic wounds. * LEG WOUND CX: WOUND CULTURE Final Organism 1 COAGULASE NEGATIVE STAPH QUANTITY 3+ Organism 2 ENTEROCOCCUS SPECIES QUANTITY ISOLATED FROM BROTH ONLY 3. Polymicrobial urinary tract infection. 4. Pulm Edema => Diastolic Heart Failure 5. Probable obstructive sleep apnea/ Obesity hypoventilation syndrome (- )MRSA Nares ABX ALLERGIES: KNDA CURRENT ABX: DAY # 11=> Doxycycline PO #2 + Amoxicillin po #2 for wounds s/p Vanco IV +Ceftriaxone x 10 days ID RECOMMENDATIONS 1. Encephalopathy seems to have resolved 2. Has received adequate coverage for UTI = OFF IV ABX 3. DC to SNF when cleared by PMD on PO ABX for wounds as ordered x 7 days = Today Day #2 / 7 days total. . . Problems: Consultation Date/Type/Reason Admit Date/Time May 07, 2017 at 15:05 Initial Consult Date 05/08/17 Type of Consultation: ID Referring Provider: ABI GARCIA Exam/Review of Systems Vital Signs Vitals Vital Signs Date Time Temp Pulse Resp B/P Pulse Ox O2 Delivery O2 Flow Rate FiO2 05/18/17 12:41 98.0 78 18 121/68 99 05/18/17 11:20 2.0 05/18/17 07:45 Nasal Cannula 05/18/17 01:09 27 Intake and Output 05/17/17 05/17/17 05/18/17 14:59 22:59 06:59 Intake Total 700 ml 200 ml Output Total 500 ml Balance 200 ml 200 ml Results Result Diagram: 05/17/17 0604 05/17/17 0604 Medications Medications Current Medications Ondansetron HCl (Zofran Inj) 4 mg Q6H PRN IV NAUSEA AND/OR VOMITING; Start 05/07/17 at 17:30 Acetaminophen (Tylenol Supp) 650 mg Q4H PRN [place] PAIN LEVEL 1-3 OR FEVER Last administered on 05/14/17 06:30; Admin Dose 650 MG; Start 05/07/17 at 17:30 Morphine Sulfate (morphine) 2 mg Q4H PRN IV PAIN LEVEL 7-10 Last administered on 05/17/17 22:05; Admin Dose 2 MG; Start 05/07/17 at 17:30 Enoxaparin Sodium (Lovenox) 30 mg DAILY SC Last administered on 05/18/17 08: 57; Admin Dose 30 MG; Start 05/08/17 at 09:00; Status Future hold Miscellaneous Information (* Miscellaneous Pharmacy Order) PATIENT'S OWN MEDICATI... DAILY XX ; Start 05/09/17 at 09:00 Levothyroxine Sodium (Synthroid) 137 mcg DAILY@06 NGT Last administered on 06:19; Admin Dose 137 MCG; Start 05/09/17 at 06:00 Allopurinol (Zyloprim) 100 mg DAILY PO Last administered on 05/18/17 08:48; Admin Dose 100 MG; Start 05/08/17 at 18:00 IV Flush (NS 10 ml) 10 ml PRN PRN IV IV PROTOCOL; Start 05/08/17 at 17:30 Lansoprazole (Prevacid) 30 mg DAILY@06 NGT Last administered on 05/18/17 06: 19; Admin Dose 30 MG; Start 05/12/17 at 06:00 Collagenase (Santyl) 1 applic DAILY TOP Last administered on 05/18/17 08:49; Admin Dose 1 APPLIC; Start 05/13/17 at 09:00 Nystatin (Nystatin Powder) 1 applic BID TOP Last administered on 05/18/17 08: 51; Admin Dose 1 APPLIC; Start 05/12/17 at 21:00 Aspirin (Aspirin) 81 mg DAILY PO Last administered on 05/18/17 08:48; Admin Dose 81 MG; Start 05/13/17 at 09:00 Carbidopa/Levodopa (Sinemet (25/ 100)) 1 tab TID PO Last administered on 12:47; Admin Dose 1 TAB; Start 05/13/17 at 09:00 Potassium Chloride (Klor-Con 20) 20 meq BID PO Last administered on 05/18/17 08:48; Admin Dose 20 MEQ; Start 05/14/17 at 21:00 Hydralazine HCl (Apresoline) 10 mg Q4H PRN IV SBP>170; Start 05/15/17 at 13:30 Clonidine HCl (Catapres-Tts 1 Patch) 1 patch Q7D TRANSDERM Last administered on 05/15/17 17:18; Admin Dose 1 PATCH; Start 05/15/17 at 15:00 Doxycycline Hyclate (Vibramycin) 100 mg BID PO Last administered on 05/18/17 08:48; Admin Dose 100 MG; Start 05/17/17 at 12:00; Stop 05/24/17 at 11:59 Amoxicillin (Amoxicillin) 500 mg Q6 PO Last administered on 05/18/17 12:47; Admin Dose 500 MG; Start 05/17/17 at 13:00; Stop 05/24/17 at 12:59 Ketoconazole (Nizoral Cr) 1 applic DAILY TOP Last administered on 05/18/17 08 :49; Admin Dose 1 APPLIC; Start 05/18/17 at 09:00 Collagenase (Santyl) 1 applic DAILY TOP ; Start 05/17/17 at 14:00 LIBIA VERGARA NP May 18, 2017 14:28
[2017-05-18 14:39] LABS: CALCIUM 8.2 mg/dl (8.4-10.2); CREATININE 0.63 mg/dl (0.44-1.00); POTASSIUM 3.9 mmol/L (3.5-5.1)
[2017-05-18] MEDS: morphine 2 MG INJ IV PRN (15:13)
--- NOTE | 2017-05-18 16:18 | CONS ---
Date/Time of Note Date/Time of Note DATE: 05/18/17 TIME: 16:17 Assessment/Plan Assessment/Plan Chief Complaint/Hosp Course Altered mental status, Parkinson's disease Problems: Additional Assessment/Plan 77 year old female with CHF, HTN, HLD, Parkinson's, COPD, arthritis admitted with aphasia, bradycardia and hyperkalemia and was found to be altered and confused. MRI Brain w/o contrast: 1. No acute or early subacute ischemic infarction or intracranial hemorrhage. 2. Mild chronic microvascular ischemic changes and age related volume loss. Recommendations: ASA 81 mg daily Continue Parkinson's medications concern for possibly underlying encephalopathy unfortunately she was unable to tolerate LP due to severe agitation possible delirium and worsening of baseline dementia Will follow Consultation Date/Type/Reason Admit Date/Time May 07, 2017 at 15:05 Initial Consult Date 05/08/17 Type of Consultation: ID Referring Provider: ABI GARCIA 24 HR Interval Summary Free Text/Dictation Clinically unchanged Exam/Review of Systems Vital Signs Vitals Vital Signs Date Time Temp Pulse Resp B/P Pulse Ox O2 Delivery O2 Flow Rate FiO2 05/18/17 15:33 98.0 63 16 141/65 96 05/18/17 11:20 2.0 05/18/17 07:45 Nasal Cannula 05/18/17 01:09 27 Intake and Output 05/17/17 05/17/17 05/18/17 15:00 23:00 07:00 Intake Total 700 ml 200 ml Output Total 500 ml Balance 200 ml 200 ml Exam Neurological: other (Limited exam, sleepy but arousable, following simple commands) Results Result Diagram: 05/17/17 0604 05/18/17 1413 Results 24 hrs Laboratory Tests Test 05/18/17 14:13 Sodium Level 147 H Potassium Level 3.9 Chloride Level 111 H Carbon Dioxide Level 32 H Anion Gap 8 Blood Urea Nitrogen 13 Creatinine 0.63 Glucose Level 138 Calcium Level 8.2 L Medications Medications Current Medications Ondansetron HCl (Zofran Inj) 4 mg Q6H PRN IV NAUSEA AND/OR VOMITING; Start 05/07/17 at 17:30 Acetaminophen (Tylenol Supp) 650 mg Q4H PRN [place] PAIN LEVEL 1-3 OR FEVER Last administered on 05/14/17t 06:30; Admin Dose 650 MG; Start 05/07/17 at 17:30 Morphine Sulfate (morphine) 2 mg Q4H PRN [place] PAIN LEVEL 7-10 Last administered on 05/18/17 15:13; Admin Dose 2 MG; Start 05/07/17 at 17:30 Enoxaparin Sodium (Lovenox) 30 mg DAILY SC Last administered on 05/18/17 08: 57; Admin Dose 30 MG; Start 05/08/17 at 09:00; Status Future hold Miscellaneous Information (* Miscellaneous Pharmacy Order) PATIENT'S OWN MEDICATI... DAILY XX ; Start 05/09/17 at 09:00 Levothyroxine Sodium (Synthroid) 137 mcg DAILY@06 NGT Last administered on 06:19; Admin Dose 137 MCG; Start 05/09/17 at 06:00 Allopurinol (Zyloprim) 100 mg DAILY PO Last administered on 05/18/17 08:48; Admin Dose 100 MG; Start 05/08/17 at 18:00 IV Flush (NS 10 ml) 10 ml PRN PRN IV IV PROTOCOL; Start 05/08/17 at 17:30 Lansoprazole (Prevacid) 30 mg DAILY@06 NGT Last administered on 05/18/17 06: 19; Admin Dose 30 MG; Start 05/12/17 at 06:00 Collagenase (Santyl) 1 applic DAILY TOP Last administered on 05/18/17 08:49; Admin Dose 1 APPLIC; Start 05/13/17 at 09:00 Nystatin (Nystatin Powder) 1 applic BID TOP Last administered on 05/18/17 08: 51; Admin Dose 1 APPLIC; Start 05/12/17 at 21:00 Aspirin (Aspirin) 81 mg DAILY PO Last administered on 05/18/17 08:48; Admin Dose 81 MG; Start 05/13/17 at 09:00 Carbidopa/Levodopa (Sinemet (25/ 100)) 1 tab TID PO Last administered on 12:47; Admin Dose 1 TAB; Start 05/13/17 at 09:00 Potassium Chloride (Klor-Con 20) 20 meq BID PO Last administered on 05/18/17 08:48; Admin Dose 20 MEQ; Start 05/14/17 at 21:00 Hydralazine HCl (Apresoline) 10 mg Q4H PRN IV SBP>170; Start 05/15/17 at 13:30 Clonidine HCl (Catapres-Tts 1 Patch) 1 patch Q7D TRANSDERM Last administered on 05/15/17 17:18; Admin Dose 1 PATCH; Start 05/15/17 at 15:00 Doxycycline Hyclate (Vibramycin) 100 mg BID PO Last administered on 05/18/17 08:48; Admin Dose 100 MG; Start 05/17/17 at 12:00; Stop 05/24/17 at 11:59 Amoxicillin (Amoxicillin) 500 mg Q6 PO Last administered on 05/18/17 12:47; Admin Dose 500 MG; Start 05/17/17 at 13:00; Stop 05/24/17 at 12:59 Ketoconazole (Nizoral Cr) 1 applic DAILY TOP Last administered on 05/18/17 08 :49; Admin Dose 1 APPLIC; Start 05/18/17 at 09:00 Collagenase (Santyl) 1 applic DAILY TOP ; Start 05/17/17 at 14:00 FREDRICK KIRKPATRICK MD May 18, 2017 16:17
[2017-05-19] VITALS (12 sets, daily range): BP systolic 114–159; BP diastolic 53–70; PULSE 53–75; RESP 16–20
[2017-05-19] MEDS: LEVOTHYROXINE 137 MCG TAB NGT SCH (06:29)
[2017-05-19] MEDS: LANSOPRAZOLE 30 MG CAP NGT SCH (06:29)
[2017-05-19] MEDS: AMOXICILLIN 500 MG CAP PO SCH ×2 (06:29→13:20)
[2017-05-19 07:35] LABS: ABNORMAL IP MESSAGE 1; BASOPHILS % 0.7 % (0.0-2.0); EOSINOPHILS # 0.3 10^3/ul (0.0-0.5); EOSINOPHILS % 4.9 % (0.0-7.0); HEMATOCRIT 27.8 % (37.0-47.0); LYMPHOCYTES # 0.8 10^3/ul (0.8-2.9); LYMPHOCYTES % 13.3 % (15.0-51.0); MEAN CORPUSCULAR HEMOGLOBIN 26.9 pg (29.0-33.0); MEAN CORPUSCULAR HGB CONC 28.8 g/dl (32.0-37.0); MEAN CORPUSCULAR VOLUME 93.6 fl (82.0-101.0); MEAN PLATELET VOLUME 11.2 fl (7.4-10.4); MONOCYTE # 0.8 10^3/ul (0.3-0.9); MONOCYTES % 13.6 % (0.0-11.0); NEUTROPHILS % 66.7 % (39.0-77.0); PLATELET COUNT 419 10^3/UL (140-415); RED BLOOD COUNT 2.97 10^6/ul (4.20-5.40); RED CELL DISTRIBUTION WIDTH 15.8 % (11.5-14.5)
[2017-05-19 07:40] LABS: POSITIVE DIFF @See below
[2017-05-19 08:10] LABS: CALCIUM 8.4 mg/dl (8.4-10.2); CREATININE 0.63 mg/dl (0.44-1.00); POTASSIUM 3.9 mmol/L (3.5-5.1)
[2017-05-19] MEDS: ASPIRIN 81 MG TAB PO SCH (09:53)
[2017-05-19] MEDS: POTASSIUM CHLORIDE 20 MEQ POWDER FOR ORAL SOLN PO SCH ×2 (09:54→20:48)
[2017-05-19] MEDS: DOXYCYCLINE 100 MG TAB PO SCH ×2 (09:54→20:47)
[2017-05-19] MEDS: ALLOPURINOL 100 MG TAB PO SCH (09:54)
[2017-05-19] MEDS: CARBIDOPA/LEVODOPA (25/100) TAB PO SCH ×3 (09:54→20:47)
--- NOTE | 2017-05-19 10:12 | CONS ---
Date/Time of Note Date/Time of Note DATE: 05/19/17 TIME: 10:08 Assessment/Plan Assessment/Plan Additional Assessment/Plan 1. Severe symptomatic bradycardia- improved 2. GUY on possible CKD due to Prerenal azotemia 3. Possible CKD 4. Acute hyperkalemia due to GUY 5.AMs due to acute metabolic encephalopathy and bradycardia 6. H.o CHF 7. H/o HTN 8. h/o hypothyroidism 9/ H/o parkinsonism 10. Hyperuricemia without gout 11. Bilateral foot ulcerations Plan: Cr 0.67 today, Na trending up to 148- will give one liter of D5W then stop podiatry following for bilateral foot ulcerations. On allopurinol 100mg po daily for hyperuricemia. Renal US showed normal right kidney, left kidney not seen will continue to follow up Consultation Date/Type/Reason Admit Date/Time May 07, 2017 at 15:05 Initial Consult Date 05/08/17 Type of Consultation: NEPHROLOGY Referring Provider: ABI GARCIA 24 HR Interval Summary Free Text/Dictation Cr stable, Na trending up Exam/Review of Systems Vital Signs Vitals Vital Signs Date Time Temp Pulse Resp B/P Pulse Ox O2 Delivery O2 Flow Rate FiO2 05/19/17 08:28 61 05/19/17 07:48 99.0 16 122/59 95 05/19/17 02:18 2.0 27 05/18/17 07:45 Nasal Cannula Intake and Output 05/18/17 05/18/17 05/19/17 15:00 23:00 07:00 Intake Total 700 ml 200 ml Output Total 650 ml 600 ml Balance 50 ml -400 ml Exam Constitutional: alert, well developed Psych: nl mood/affect Cardiovascular: S1 S2 RRR no murmur Gastrointestinal: non-tender, soft Musculoskeletal: nl extremities to inspection Extremities: normal pulses, bilateral foot ulceration Neurological: confused (at times.), nl speech, other (oriented to person, place ) Results Result Diagram: 05/19/17 0606 05/19/17 0606 Results 24 hrs Laboratory Tests Test 05/18/17 14:13 05/19/17 06:06 Sodium Level 147 H 148 H Potassium Level 3.9 3.9 Chloride Level 111 H 111 H Carbon Dioxide Level 32 H 33 H Anion Gap 8 8 Blood Urea Nitrogen 13 14 Creatinine 0.63 0.63 Glucose Level 138 104 Calcium Level 8.2 L 8.4 White Blood Count 6.0 Red Blood Count 2.97 L Hemoglobin 8.0 L Hematocrit 27.8 L Mean Corpuscular Volume 93.6 Mean Corpuscular Hemoglobin 26.9 L Mean Corpuscular Hemoglobin Concent 28.8 L Red Cell Distribution Width 15.8 H Platelet Count 419 #H Mean Platelet Volume 11.2 H Neutrophils % 66.7 Lymphocytes % 13.3 L Monocytes % 13.6 H Eosinophils % 4.9 Basophils % 0.7 Nucleated Red Blood Cells % 0.0 Neutrophils # 4.0 Lymphocytes # 0.8 Monocytes # 0.8 Eosinophils # 0.3 Basophils # 0.0 Nucleated Red Blood Cells # 0.0 Medications Medications Current Medications Ondansetron HCl (Zofran Inj) 4 mg Q6H PRN IV NAUSEA AND/OR VOMITING; Start 05/07/17 at 17:30 Acetaminophen (Tylenol Supp) 650 mg Q4H PRN [place] PAIN LEVEL 1-3 OR FEVER Last administered on 05/14/17 06:30; Admin Dose 650 MG; Start 05/07/17 at 17:30 Morphine Sulfate (morphine) 2 mg Q4H PRN IV PAIN LEVEL 7-10 Last administered on 05/18/17 15:13; Admin Dose 2 MG; Start 05/07/17 at 17:30 Enoxaparin Sodium (Lovenox) 30 mg DAILY SC Last administered on 05/18/17 08: 57; Admin Dose 30 MG; Start 05/08/17 at 09:00; Status Future hold Miscellaneous Information (* Miscellaneous Pharmacy Order) PATIENT'S OWN MEDICATI... DAILY XX ; Start 05/09/17 at 09:00 Levothyroxine Sodium (Synthroid) 137 mcg DAILY@06 NGT Last administered on 06:29; Admin Dose 137 MCG; Start 05/09/17 at 06:00 Allopurinol (Zyloprim) 100 mg DAILY PO Last administered on 05/18/17 08:48; Admin Dose 100 MG; Start 05/08/17 at 18:00 IV Flush (NS 10 ml) 10 ml PRN PRN IV IV PROTOCOL; Start 05/08/17 at 17:30 Lansoprazole (Prevacid) 30 mg DAILY@06 NGT Last administered on 05/19/17 06: 29; Admin Dose 30 MG; Start 05/12/17 at 06:00 Collagenase (Santyl) 1 applic DAILY TOP Last administered on 05/18/17 08:49; Admin Dose 1 APPLIC; Start 05/13/17 at 09:00 Nystatin (Nystatin Powder) 1 applic BID TOP Last administered on 05/18/17 21: 02; Admin Dose 1 APPLIC; Start 05/12/17 at 21:00 Aspirin (Aspirin) 81 mg DAILY PO Last administered on 05/18/17 08:48; Admin Dose 81 MG; Start 05/13/17 at 09:00 Carbidopa/Levodopa (Sinemet (25/ 100)) 1 tab TID PO Last administered on 21:02; Admin Dose 1 TAB; Start 05/13/17 at 09:00 Hydralazine HCl (Apresoline) 10 mg Q4H PRN IV SBP>170; Start 05/15/17 at 13:30 Clonidine HCl (Catapres-Tts 1 Patch) 1 patch Q7D TRANSDERM Last administered on 05/15/17 17:18; Admin Dose 1 PATCH; Start 05/15/17 at 15:00 Doxycycline Hyclate (Vibramycin) 100 mg BID PO Last administered on 05/18/17 21:02; Admin Dose 100 MG; Start 05/17/17 at 12:00; Stop 05/24/17 at 11:59 Amoxicillin (Amoxicillin) 500 mg Q6 PO Last administered on 05/19/17 06:29; Admin Dose 500 MG; Start 05/17/17 at 13:00; Stop 05/24/17 at 12:59 Ketoconazole (Nizoral Cr) 1 applic DAILY TOP Last administered on 05/18/17 08 :49; Admin Dose 1 APPLIC; Start 05/18/17 at 09:00 Collagenase (Santyl) 1 applic DAILY TOP ; Start 05/17/17 at 14:00 Potassium Chloride (Potassium Chloride Pwd/Soln) 20 meq BID PO ; Start at 10:00 ENRIQUETA HUNG MD May 19, 2017 10:12
[2017-05-19] MEDS: NYSTATIN 30 GM POWDER BTL TOP SCH ×2 (10:17→20:48)
[2017-05-19] MEDS: [UNRECOGNIZED DRUG - REMARK] XX SCH (10:17)
[2017-05-19] MEDS: ENOXAPARIN 30 MG/0.3 ML SYG SC SCH (10:17)
[2017-05-19] MEDS: KETOCONAZOLE 2% 15 GM CR TOP SCH (10:17)
[2017-05-19] MEDS: COLLAGENASE 30 GM TUBE TOP SCH ×2 (10:17→10:18)
[2017-05-19] MEDS ORDERED: DEXTROSE 5% 1,000 ML IV SCH (10:30)
--- NOTE | 2017-05-19 11:07 | CONS ---
Date/Time of Note Date/Time of Note DATE: 05/19/17 TIME: 11:05 Assessment/Plan Assessment/Plan Chief Complaint/Hosp Course IMP: IMPRESSION: 1. Bradycardia, severe in the 20s in the setting of hyperkalemia. Continue to follow with resolution of bradycardia after improvement in hyperkalemia.-no recurrence since improvement in hyperkalemia/ nl tsh 2. Abnormal electrocardiogram with baseline conduction system disease and right bundle branch block.-negative trop x 3/NL EF by echo this admit 3. Hypotension-improved and stable off of anti-hypertensives 4. Hyperkalemia, improved. 5. Renal failure, improved 6. Altered mental state/encephalopathy-improving now 7. Anemia with acidosis. 8. Slurred speech secondary to low cardiac output and bradycardia versus transient ischemic attack/stroke.-remains with ams 9. Fevers 10. HTN-? relation to agitation/confusion-currently improved 11.Cephalic vein thrombosis 12. Hypernatremia REcc: -Tele -serial ecg's -Continue asa -Follow volume status and creatnine closely with renal following and spot dose lasix as necessary -continue abx's and f/u cx data -Rx fevers -Ongoing neuro eval of encephalopathy with pnding LP as possible -PRN hydralazine IVP and clonidine TTS low dose Problems: Consultation Date/Type/Reason Admit Date/Time May 07, 2017 at 15:05 Initial Consult Date 05/08/17 Type of Consultation: cardiology Reason for Consultation bradycardia Referring Provider: ABI GARCIA Exam/Review of Systems Vital Signs Vitals Vital Signs Date Time Temp Pulse Resp B/P Pulse Ox O2 Delivery O2 Flow Rate FiO2 05/19/17 08:50 95 2.0 05/19/17 08:28 61 05/19/17 07:48 99.0 16 122/59 05/19/17 02:18 27 05/18/17 07:45 Nasal Cannula Intake and Output 05/18/17 05/18/17 05/19/17 15:00 23:00 07:00 Intake Total 700 ml 200 ml Output Total 650 ml 600 ml Balance 50 ml -400 ml Exam Review of Systems: CONSTITUTIONAL: No fevers, chills. PULMONARY: No sob CARDIOVASCULAR: No chest pain/palpitations GASTROINTESTINAL: No nausea/vomiting. GENITOURINARY: No hematuria/dysuria. MUSCULOSKELETAL: No myagias/arthalgias. PSYCHIATRIC: The patient denies depression. NEUROLOGIC: More awake Constitutional: alert Psych: no complaints Head: normocephalic ENMT: mucosa pink and moist Neck: jvd (9 cm water), supple Respiratory: diminished breath sounds (at bases/B) Cardiovascular: regular rate and rhythm Gastrointestinal: soft Musculoskeletal: muscle weakness (generalized) Extremities: pitting pedal edema (Bilateral) Neurological: other (No focal deficits) Results Result Diagram: 05/19/17 0605/19/17 06 Results 24 hrs Laboratory Tests Test 05/18/17 14:13 05/19/17 06:06 Sodium Level 147 H 148 H Potassium Level 3.9 3.9 Chloride Level 111 H 111 H Carbon Dioxide Level 32 H 33 H Anion Gap 8 8 Blood Urea Nitrogen 13 14 Creatinine 0.63 0.63 Glucose Level 138 104 Calcium Level 8.2 L 8.4 White Blood Count 6.0 Red Blood Count 2.97 L Hemoglobin 8.0 L Hematocrit 27.8 L Mean Corpuscular Volume 93.6 Mean Corpuscular Hemoglobin 26.9 L Mean Corpuscular Hemoglobin Concent 28.8 L Red Cell Distribution Width 15.8 H Platelet Count 419 #H Mean Platelet Volume 11.2 H Neutrophils % 66.7 Lymphocytes % 13.3 L Monocytes % 13.6 H Eosinophils % 4.9 Basophils % 0.7 Nucleated Red Blood Cells % 0.0 Neutrophils # 4.0 Lymphocytes # 0.8 Monocytes # 0.8 Eosinophils # 0.3 Basophils # 0.0 Nucleated Red Blood Cells # 0.0 Medications Medications Current Medications Ondansetron HCl (Zofran Inj) 4 mg Q6H PRN IV NAUSEA AND/OR VOMITING; Start 05/07/17 at 17:30 Acetaminophen (Tylenol Supp) 650 mg Q4H PRN [place] PAIN LEVEL 1-3 OR FEVER Last administered on 05/14/17 06:30; Admin Dose 650 MG; Start 05/07/17 at 17:30 Morphine Sulfate (morphine) 2 mg Q4H PRN IV PAIN LEVEL 7-10 Last administered on 05/18/17 15:13; Admin Dose 2 MG; Start 05/07/17 at 17:30 Enoxaparin Sodium (Lovenox) 30 mg DAILY SC Last administered on 10/16/17at 10: 17; Admin Dose 30 MG; Start 05/08/17 at 09:00; Status Future hold Miscellaneous Information (* Miscellaneous Pharmacy Order) PATIENT'S OWN MEDICATI... DAILY XX ; Start 05/09/17 at 09:00 Levothyroxine Sodium (Synthroid) 137 mcg DAILY@06 NGT Last administered on 06:29; Admin Dose 137 MCG; Start 05/09/17 at 06:00 Allopurinol (Zyloprim) 100 mg DAILY PO Last administered on 05/19/17 09:54; Admin Dose 100 MG; Start 05/08/17 at 18:00 IV Flush (NS 10 ml) 10 ml PRN PRN IV IV PROTOCOL; Start 05/08/17 at 17:30 Lansoprazole (Prevacid) 30 mg DAILY@06 NGT Last administered on 05/19/17 06: 29; Admin Dose 30 MG; Start 05/12/17 at 06:00 Collagenase (Santyl) 1 applic DAILY TOP Last administered on 05/19/17 10:17; Admin Dose 1 APPLIC; Start 05/13/17 at 09:00 Nystatin (Nystatin Powder) 1 applic BID TOP Last administered on 05/19/17 10: 17; Admin Dose 1 APPLIC; Start 05/12/17 at 21:00 Aspirin (Aspirin) 81 mg DAILY PO Last administered on 05/19/17 09:53; Admin Dose 81 MG; Start 05/13/17 at 09:00 Carbidopa/Levodopa (Sinemet (25/ 100)) 1 tab TID PO Last administered on 09:54; Admin Dose 1 TAB; Start 05/13/17 at 09:00 Hydralazine HCl (Apresoline) 10 mg Q4H PRN IV SBP>170; Start 05/15/17 at 13:30 Clonidine HCl (Catapres-Tts 1 Patch) 1 patch Q7D TRANSDERM Last administered on 05/15/17 17:18; Admin Dose 1 PATCH; Start 05/15/17 at 15:00 Doxycycline Hyclate (Vibramycin) 100 mg BID PO Last administered on 05/19/17 09:54; Admin Dose 100 MG; Start 05/17/17 at 12:00; Stop 05/24/17 at 11:59 Amoxicillin (Amoxicillin) 500 mg Q6 PO Last administered on 05/19/17 06:29; Admin Dose 500 MG; Start 05/17/17 at 13:00; Stop 05/24/17 at 12:59 Ketoconazole (Nizoral Cr) 1 applic DAILY TOP Last administered on 05/19/17 10 :17; Admin Dose 1 APPLIC; Start 05/18/17 at 09:00 Collagenase (Santyl) 1 applic DAILY TOP ; Start 05/17/17 at 14:00 Potassium Chloride 20 meq 20 meq BID PO Last administered on 05/19/17 09:54; Admin Dose 20 MEQ; Start 05/19/17 at 10:00 Dextrose (D5W) 1,000 ml @ 80 mls/hr [id number] IV ; Start 05/19/17 at 10:30; Stop 05/19/17 at 22:59 RON TORRES May 19, 2017 11:07
[2017-05-19] MEDS ORDERED: FUROSEMIDE 20 MG INJ IV ONE (11:30)
--- NOTE | 2017-05-19 15:13 | PN ---
DATE: 05/19/2017 SUBJECTIVE: No events overnight. The patient is awake, looks comfortable, no fevers. WBC 6, no shift, no bands. BUN 14, creatinine 0.63. ANTIMICROBIALS: 1. Amoxicillin. 2. Doxycycline p.o. PHYSICAL EXAMINATION: GENERAL: This is an obese, chronically ill-appearing, elderly woman who is in no distress. HEENT: Head atraumatic, normocephalic. Sclerae anicteric. Buccal mucosa dry. NECK: Supple. CHEST: Rise is symmetrical. Breath sounds diminished to bases. HEART: S1, S2. ABDOMEN: Soft. Bowel tones present. ASSESSMENT: 1. Resolving encephalopathy. 2. Bilateral lower extremities, acute on chronic cellulitis. 3. Urinary tract infection. 4. Left cephalic vein thrombosis. 5. Obesity. 6. Acute on chronic kidney disease. 7. Parkinson's dementia. PLAN: The patient remains stable and overall improving. She is being followed by multiple consulta nts. Antibiotics were tapered down to p.o. Continue present care, physical therapy. The patient m ay benefit from acute rehab post discharge. Dictated By: ANITA LUA LOOM OVERHAULER for KRISTOPHER TAVARES MD NI/NTS Conf#: [id number] DID#: [id number]
--- NOTE | 2017-05-19 17:39 | CONS ---
DATE OF ADMISSION: 05/07/2017 DATE OF CONSULTATION: 05/19/2017 SUBJECTIVE FINDINGS: The patient being followed for bilateral heel decubitus ulcerations and cellul itis of lower extremities. The patient was recommended use of Prevalon boots. They are in the room , but the patient refusing to use. She states that they are too heavy and has pain. Discussed impo rtance, possible further deep tissue injury, but the patient refusing. Patient alert, oriented. Th e patient ongoing neuro evaluation of encephalopathy with possible lumbar puncture. OBJECTIVE FINDINGS: VITAL SIGNS: Temperature 97.5, pulse 62, respiratory 20, blood pressure 114/58, pulse oximetry is 9 6 on room air. GENERAL: The patient lying supine, alert, in no acute distress. He is answering questions. LUNGS: Regular respirations. EXTREMITIES: Has 1+ pitting edema, decreased erythema to the dorsal aspect of feet. There are dress ings bilateral ankles, which are clean, dry and intact. No malodor. The patient refusing dressing changes. There are stable blisters, which is intact, to bilateral heels. The lateral aspect of the right heel is undetermined. Pain with palpation of heels. Chronic mycotic nails. 1+ DP pulses bi laterally. LABORATORIES: WBC 6, hemoglobin 8, hematocrit 27.8, platelets 419. Sodium 148, potassium 3.9, chlo ride 111, CO2 33, BUN 14, creatinine is 0.63. Leg cultures: Enterococcus species, coag negative st aph. The patient on doxycycline and amoxicillin for the wounds. ASSESSMENT 1. Bilateral lower extremity cellulitis, appears to be improving clinically. 2. Pitting edema, also improved. 3. Venous stasis with ulceration. 4. Tinea. 5. Onychomycosis. 6. Deep tissue injury of right lateral heel, undetermined depth, and a stage I pressure heel ulcerat ions, bilateral. 7. Bradycardia, improving with current potassium levels. 8. Acute on chronic kidney disease. 9. Hypothyroidism. 10. Parkinson's. 11. Hyperuricemia without gout. 12. Acute encephalopathy. PLAN: Patient seen and evaluated. Is more alert today. Is able to answer questions. Did discuss the importance of offloading and using protective pillows. Patient adamantly refusing. Continue cu rrent treatments. Coordination of care with nursing. Further disposition per primary care team. W ould benefit outpatient followup once discharged for the wounds. Dictated By: ASHISH SALAS/VERONIKA Conf#: [id number] DID#: [id number]
--- NOTE | 2017-05-19 17:44 | PN ---
Date/Time of Note Date/Time of Note DATE: 05/19/17 TIME: 17:38 Assessment/Plan VTE Prophylaxis VTE Prophylaxis Intervention: SCD's Lines/Catheters IV C[facility]ter Type (from [facility] Saline Lock Urinary Cath still in place: Yes Reason Cath still needed: urinary retention Assessment/Plan Chief Complaint/Hosp Course Pt is lethargic but arousable, stable vital signs. Patient was increased hypernatremia, getting bolus of IV fluids with dextrose. Continue to monitor electrolytes. Assessment/Plan - Acute encephalopathy toxic metabolic - Possible encephalitis, Continue abx per ID. Dr. Forrest is following in neurology consultation. - Bilateral lower extremity cellulitis with wounds. Continue to biotics per ID. Dr. Stephens is following in infectious disease consultation. Dr Thomas is following in podiatry consultation. Dr. Munoz is asked to see patient in vascular surgery consultation. - Polymicrobial urinary tract infection, status post treatment - Left cephalic vein thrombosis, continue Lovenox. - Acute kidney injury, resolving. Dr. Cordoba is following in nephrology consultation. Continue IV fluids. Monitor electrolytes. - Acute respiratory insufficiency. Continue breathing treatment and oxygen supplementation. - Chronic obstructive pulmonary disease. - History of hypothyroidism. Continue levothyroxine. - History of peripheral vascular disease with history of vascular interventions. - History of Parkinson disease. Continue Sinemet. - History of osteoarthritis. - History of hyperlipidemia. Further recommendations based on clinical course. Plan of care discussed with Dr. Bonilla. Problems: Exam/Review of Systems Vital Signs Vitals Vital Signs Date Time Temp Pulse Resp B/P Pulse Ox O2 Delivery O2 Flow Rate FiO2 05/19/17 16:18 53 05/19/17 15:10 97.5 20 114/58 96 05/19/17 08:50 2.0 05/19/17 02:18 27 05/18/17 07:45 Nasal Cannula Intake and Output 05/18/17 05/18/17 05/19/17 15:00 23:00 07:00 Intake Total 700 ml 200 ml Output Total 650 ml 600 ml Balance 50 ml -400 ml Exam Constitutional: alert, frail Head: normocephalic Neck: supple Respiratory: diminished breath sounds Cardiovascular: nl pulses Gastrointestinal: non-tender, soft Extremities: edema, other (Erythema improved) Neurological: confused Results Result Diagram: 05/19/1706 10/16/17 0606 Results 24 hrs Laboratory Tests Test 05/19/17 06:06 White Blood Count 6.0 Red Blood Count 2.97 L Hemoglobin 8.0 L Hematocrit 27.8 L Mean Corpuscular Volume 93.6 Mean Corpuscular Hemoglobin 26.9 L Mean Corpuscular Hemoglobin Concent 28.8 L Red Cell Distribution Width 15.8 H Platelet Count 419 #H Mean Platelet Volume 11.2 H Neutrophils % 66.7 Lymphocytes % 13.3 L Monocytes % 13.6 H Eosinophils % 4.9 Basophils % 0.7 Nucleated Red Blood Cells % 0.0 Neutrophils # 4.0 Lymphocytes # 0.8 Monocytes # 0.8 Eosinophils # 0.3 Basophils # 0.0 Nucleated Red Blood Cells # 0.0 Sodium Level 148 H Potassium Level 3.9 Chloride Level 111 H Carbon Dioxide Level 33 H Anion Gap 8 Blood Urea Nitrogen 14 Creatinine 0.63 Glucose Level 104 Calcium Level 8.4 Medications Medications Current Medications Ondansetron HCl (Zofran Inj) 4 mg Q6H PRN IV NAUSEA AND/OR VOMITING; Start 05/07/17 at 17:30 Acetaminophen (Tylenol Supp) 650 mg Q4H PRN [place] PAIN LEVEL 1-3 OR FEVER Last administered on 05/14/17 06:30; Admin Dose 650 MG; Start 05/07/17 at 17:30 Morphine Sulfate (morphine) 2 mg Q4H PRN IV PAIN LEVEL 7-10 Last administered on 05/18/17 15:13; Admin Dose 2 MG; Start 05/07/17 at 17:30 Enoxaparin Sodium (Lovenox) 30 mg DAILY SC Last administered on 05/19/17 10: 17; Admin Dose 30 MG; Start 05/08/17 at 09:00; Status Future hold Miscellaneous Information (* Miscellaneous Pharmacy Order) PATIENT'S OWN MEDICATI... DAILY XX ; Start 05/09/17 at 09:00 Levothyroxine Sodium (Synthroid) 137 mcg DAILY@06 NGT Last administered on 06:29; Admin Dose 137 MCG; Start 05/09/17 at 06:00 Allopurinol (Zyloprim) 100 mg DAILY PO Last administered on 05/19/17 09:54; Admin Dose 100 MG; Start 05/08/17 at 18:00 IV Flush (NS 10 ml) 10 ml PRN PRN IV IV PROTOCOL; Start 05/08/17 at 17:30 Lansoprazole (Prevacid) 30 mg DAILY@06 NGT Last administered on 05/19/17 06: 29; Admin Dose 30 MG; Start 05/12/17 at 06:00 Collagenase (Santyl) 1 applic DAILY TOP Last administered on 05/19/17 10:17; Admin Dose 1 APPLIC; Start 05/13/17 at 09:00 Nystatin (Nystatin Powder) 1 applic BID TOP Last administered on 05/19/17 10: 17; Admin Dose 1 APPLIC; Start 05/12/17 at 21:00 Aspirin (Aspirin) 81 mg DAILY PO Last administered on 05/19/17 09:53; Admin Dose 81 MG; Start 05/13/17 at 09:00 Carbidopa/Levodopa (Sinemet (25/ 100)) 1 tab TID PO Last administered on 13:20; Admin Dose 1 TAB; Start 05/13/17 at 09:00 Hydralazine HCl (Apresoline) 10 mg Q4H PRN IV SBP>170; Start 05/15/17 at 13:30 Doxycycline Hyclate (Vibramycin) 100 mg BID PO Last administered on 05/19/17 09:54; Admin Dose 100 MG; Start 05/17/17 at 12:00; Stop 05/24/17 at 11:59 Ketoconazole (Nizoral Cr) 1 applic DAILY TOP Last administered on 05/19/17 10 :17; Admin Dose 1 APPLIC; Start 05/18/17 at 09:00 Collagenase (Santyl) 1 applic DAILY TOP ; Start 05/17/17 at 14:00 Potassium Chloride 20 meq 20 meq BID PO Last administered on 05/19/17 09:54; Admin Dose 20 MEQ; Start 05/19/17 at 10:00 Dextrose 1,000 ml @ 80 mls/hr [id number] IV Last administered on 05/19/17 12:06 ; Admin Dose 80 MLS/HR; Start 05/19/17 at 10:30; Stop 05/19/17 at 22:59 Ampicillin (Ampicillin 1 Gm/ NS (Pmx)) 50 ml @ 100 mls/hr Q6 IVPB ; Start 10/ 16/17 at 18:00 ABI GARCIA May 19, 2017 17:44
[2017-05-19] MEDS: AMPICILLIN 1 GM/NS (PMX) 50 ML IVPB SCH ×2 (18:52→23:35)
[2017-05-19] MEDS: morphine 2 MG INJ IV PRN (21:13)
[2017-05-20] VITALS (12 sets, daily range): BP systolic 111–141; BP diastolic 52–66; PULSE 50–63; RESP 17–18
[2017-05-20] MEDS: AMPICILLIN 1 GM/NS (PMX) 50 ML IVPB SCH ×3 (05:52→18:23)
[2017-05-20] MEDS: LEVOTHYROXINE 137 MCG TAB NGT SCH (05:52)
[2017-05-20] MEDS: LANSOPRAZOLE 30 MG CAP NGT SCH (05:52)
--- NOTE | 2017-05-20 07:29 | CONS ---
Date/Time of Note Date/Time of Note DATE: 05/20/17 TIME: 07:27 Assessment/Plan Assessment/Plan Chief Complaint/Hosp Course B/L heel decubitus with stable blisters. At risk for further deterioration of wound. Pt is no not compliant with off-loading. Pt is not compliant with wound care and dressing changes. I was able to talk the patient into wearing the heel protectors today. Will monitor. Problems: Consultation Date/Type/Reason Admit Date/Time May 07, 2017 at 15:05 Initial Consult Date 05/08/17 Type of Consultation: Podiatry: Dr. Espinal coverage Reason for Consultation B/L heel decubitus. Referring Provider: ABI GARCIA Exam/Review of Systems Vital Signs Vitals Vital Signs Date Time Temp Pulse Resp B/P Pulse Ox O2 Delivery O2 Flow Rate FiO2 05/20/17 04:03 60 05/20/17 03:38 98.3 18 141/63 97 05/20/17 02:44 3.0 05/19/17 08:05 Nasal Cannula 05/19/17 02:18 27 Intake and Output 05/19/17 05/19/17 05/20/17 15:00 23:00 07:00 Intake Total 1190 ml 350 ml Output Total 1650 ml 750 ml Balance -460 ml -400 ml Exam EXTREMITIES: Has 1+ pitting edema, decreased erythema to the dorsal aspect of feet. There are dressings bilateral ankles, which are clean, dry and intact. No malodor. The patient refusing dressing changes. There are stable blisters, which is intact, to bilateral heels. The lateral aspect of the right heel is undetermined. Pain with palpation of heels. Chronic mycotic nails. 1+ DP pulses bilaterally. Results Result Diagram: 05/19/1760505/19/17605 Medications Medications Current Medications Ondansetron HCl (Zofran Inj) 4 mg Q6H PRN IV NAUSEA AND/OR VOMITING; Start 05/07/17 at 17:30 Acetaminophen (Tylenol Supp) 650 mg Q4H PRN [place] PAIN LEVEL 1-3 OR FEVER Last administered on 05/14/17t 06:30; Admin Dose 650 MG; Start 05/07/17 at 17:30 Morphine Sulfate (morphine) 2 mg Q4H PRN IV PAIN LEVEL 7-10 Last administered on 05/19/17 21:13; Admin Dose 2 MG; Start 05/07/17 at 17:30 Enoxaparin Sodium (Lovenox) 30 mg DAILY SC Last administered on 05/19/17 10: 17; Admin Dose 30 MG; Start 05/08/17 at 09:00; Status Future hold Miscellaneous Information (* Miscellaneous Pharmacy Order) PATIENT'S OWN MEDICATI... DAILY XX ; Start 05/09/17 at 09:00 Levothyroxine Sodium (Synthroid) 137 mcg DAILY@06 NGT Last administered on 05:52; Admin Dose 137 MCG; Start 05/09/17 at 06:00 Allopurinol (Zyloprim) 100 mg DAILY PO Last administered on 05/19/17 09:54; Admin Dose 100 MG; Start 05/08/17 at 18:00 IV Flush (NS 10 ml) 10 ml PRN PRN IV IV PROTOCOL; Start 05/08/17 at 17:30 Lansoprazole (Prevacid) 30 mg DAILY@06 NGT Last administered on 05/20/17 05: 52; Admin Dose 30 MG; Start 05/12/17 at 06:00 Collagenase (Santyl) 1 applic DAILY TOP Last administered on 05/19/17 10:17; Admin Dose 1 APPLIC; Start 05/13/17 at 09:00 Nystatin (Nystatin Powder) 1 applic BID TOP Last administered on 05/19/17 20: 48; Admin Dose 1 APPLIC; Start 05/12/17 at 21:00 Aspirin (Aspirin) 81 mg DAILY PO Last administered on 05/19/17 09:53; Admin Dose 81 MG; Start 05/13/17 at 09:00 Carbidopa/Levodopa (Sinemet (25/ 100)) 1 tab TID PO Last administered on 20:47; Admin Dose 1 TAB; Start 05/13/17 at 09:00 Hydralazine HCl (Apresoline) 10 mg Q4H PRN IV SBP>170; Start 05/15/17 at 13:30 Doxycycline Hyclate (Vibramycin) 100 mg BID PO Last administered on 05/19/17 20:47; Admin Dose 100 MG; Start 05/17/17 at 12:00; Stop 05/24/17 at 11:59 Ketoconazole (Nizoral Cr) 1 applic DAILY TOP Last administered on 05/19/17 10 :17; Admin Dose 1 APPLIC; Start 05/18/17 at 09:00 Collagenase (Santyl) 1 applic DAILY TOP ; Start 05/17/17 at 14:00 Potassium Chloride 20 meq 20 meq BID PO Last administered on 05/19/17 20:48; Admin Dose 20 MEQ; Start 05/19/17 at 10:00 Ampicillin (Ampicillin 1 Gm/ NS (Pmx)) 50 ml @ 100 mls/hr Q6 IVPB Last administered on 05/20/17 05:52; Admin Dose 100 MLS/HR; Start 05/19/17 at 18: 00 JAGRUTI VELIZ DPM May 20, 2017 07:29 00 JAGRUTI VELIZ DPM May 20, 2017 07:29
[2017-05-20 07:34] LABS: BASOPHILS % 0.7 % (0.0-2.0); EOSINOPHILS # 0.2 10^3/ul (0.0-0.5); HEMATOCRIT 26.7 % (37.0-47.0); HEMOGLOBIN 8.1 g/dl (12.0-16.0); LYMPHOCYTES # 0.9 10^3/ul (0.8-2.9); MEAN CORPUSCULAR HEMOGLOBIN 28.3 pg (29.0-33.0); MEAN CORPUSCULAR HGB CONC 30.3 g/dl (32.0-37.0); MEAN CORPUSCULAR VOLUME 93.4 fl (82.0-101.0); MEAN PLATELET VOLUME 11.1 fl (7.4-10.4); MONOCYTE # 0.7 10^3/ul (0.3-0.9); NEUTROPHIL # 3.8 10^3/ul (1.6-7.5); NEUTROPHILS % 66.1 % (39.0-77.0); PLATELET COUNT 387 10^3/UL (140-415); RED BLOOD COUNT 2.86 10^6/ul (4.20-5.40); RED CELL DISTRIBUTION WIDTH 15.5 % (11.5-14.5); WHITE BLOOD COUNT 5.7 10^3/ul (4.8-10.8)
[2017-05-20 08:13] LABS: CREATININE 0.56 mg/dl (0.44-1.00); POTASSIUM 3.4 mmol/L (3.5-5.1)
[2017-05-20] MEDS: COLLAGENASE 30 GM TUBE TOP SCH ×2 (09:00)
[2017-05-20] MEDS: ASPIRIN 81 MG TAB PO SCH (09:00)
--- NOTE | 2017-05-20 09:10 | CONS ---
Date/Time of Note Date/Time of Note DATE: 05/20/17 TIME: 09:08 Assessment/Plan Assessment/Plan Additional Assessment/Plan 1. Bradycardia, severe in the 20s in the setting of hyperkalemia. Continue to follow with resolution of bradycardia after improvement in hyperkalemia.-no recurrence since improvement in hyperkalemia/ nl tsh - HR in 50-60 now, sinus - no Class I indicationb for pacer - stable since admission - HR STABLE - no indication for pacer 2. Abnormal electrocardiogram with baseline conduction system disease and right bundle branch block.-negative trop x 3/NL EF by echo this admit - no CP now 3. Hypotension-improved and stable off of anti-hypertensives - better now, not dizzy 4. Hyperkalemia, improved- BETTER 5. Renal failure, improved - renal team follows - stable fluid satus 6. Altered mental state/encephalopathy - multifactorial - sleepy but abusable 7. Anemia with acidosis - H/H stable now 8. Slurred speech secondary to low cardiac output and bradycardia versus transient ischemic attack/stroke.-remains with ams 9. Fevers Consultation Date/Type/Reason Admit Date/Time May 07, 2017 at 15:05 Initial Consult Date 05/08/17 Type of Consultation: Podiatry: Dr. Espinal coverage Referring Provider: ABI GARCIA 24 HR Interval Summary Free Text/Dictation No acute events - not araseli - no indication for pacer ROS: No fever, no chills, no nausea, no vomiting, no diarrhea/constipation No recent weight changes No chest pain, no PND, no orthopnea No dizziness, blurred vision No thirst, no heat or cold intolerance (per nurse, some sOB) Exam/Review of Systems Vital Signs Vitals Vital Signs Date Time Temp Pulse Resp B/P Pulse Ox O2 Delivery O2 Flow Rate FiO2 05/20/17 08:11 55 05/20/17 08:01 99.0 17 126/63 96 05/20/17 02:44 3.0 05/19/17 08:05 Nasal Cannula 05/19/17 02:18 27 Intake and Output 05/19/17 05/19/17 05/20/17 15:00 23:00 07:00 Intake Total 1190 ml 350 ml Output Total 1650 ml 750 ml Balance -460 ml -400 ml Exam General: WN/WD/NAD, AOx 0 HEENT: Unicetric/atraumatic/EOMI (not following commands) NECK: JVD elevated, no thyromegaly Lymph: no lymphadenopathy HEART: regular with no S3, II/ systolic murmur at apex LUNGS: Coarse sounds ABD: soft, NT, ND, +BS : Intact Neuro: non focal SKIN: chronic changes EXT: trace edema Results Result Diagram: 05/20/17 0624 05/20/17 0624 Results 24 hrs Laboratory Tests Test 05/20/17 06:24 White Blood Count 5.7 Red Blood Count 2.86 L Hemoglobin 8.1 L Hematocrit 26.7 L Mean Corpuscular Volume 93.4 Mean Corpuscular Hemoglobin 28.3 L Mean Corpuscular Hemoglobin Concent 30.3 L Red Cell Distribution Width 15.5 H Platelet Count 387 Mean Platelet Volume 11.1 H Neutrophils % 66.1 Lymphocytes % 15.0 Monocytes % 13.0 H Eosinophils % 4.0 Basophils % 0.7 Nucleated Red Blood Cells % 0.0 Neutrophils # 3.8 Lymphocytes # 0.9 Monocytes # 0.7 Eosinophils # 0.2 Basophils # 0.0 Nucleated Red Blood Cells # 0.0 Sodium Level 143 Potassium Level 3.4 L Chloride Level 104 Carbon Dioxide Level 34 H Anion Gap 8 Blood Urea Nitrogen 14 Creatinine 0.56 Glucose Level 109 Calcium Level 8.0 L Medications Medications Current Medications Ondansetron HCl (Zofran Inj) 4 mg Q6H PRN IV NAUSEA AND/OR VOMITING; Start 05/07/17 at 17:30 Acetaminophen (Tylenol Supp) 650 mg Q4H PRN [place] PAIN LEVEL 1-3 OR FEVER Last administered on 05/14/17 06:30; Admin Dose 650 MG; Start 05/07/17 at 17:30 Morphine Sulfate (morphine) 2 mg Q4H PRN IV PAIN LEVEL 7-10 Last administered on 05/19/17 21:13; Admin Dose 2 MG; Start 05/07/17 at 17:30 Enoxaparin Sodium (Lovenox) 30 mg DAILY SC Last administered on 05/19/17 10: 17; Admin Dose 30 MG; Start 05/08/17 at 09:00; Status Future hold Miscellaneous Information (* Miscellaneous Pharmacy Order) PATIENT'S OWN MEDICATI... DAILY XX ; Start 05/09/17 at 09:00 Levothyroxine Sodium (Synthroid) 137 mcg DAILY@06 NGT Last administered on 05:52; Admin Dose 137 MCG; Start 05/09/17 at 06:00 Allopurinol (Zyloprim) 100 mg DAILY PO Last administered on 05/19/17 09:54; Admin Dose 100 MG; Start 05/08/17 at 18:00 IV Flush (NS 10 ml) 10 ml PRN PRN IV IV PROTOCOL; Start 05/08/17 at 17:30 Lansoprazole (Prevacid) 30 mg DAILY@06 NGT Last administered on 05/20/17 05: 52; Admin Dose 30 MG; Start 05/12/17 at 06:00 Collagenase (Santyl) 1 applic DAILY TOP Last administered on 05/19/17 10:17; Admin Dose 1 APPLIC; Start 05/13/17 at 09:00 Nystatin (Nystatin Powder) 1 applic BID TOP Last administered on 05/19/17 20: 48; Admin Dose 1 APPLIC; Start 05/12/17 at 21:00 Aspirin (Aspirin) 81 mg DAILY PO Last administered on 05/19/17 09:53; Admin Dose 81 MG; Start 05/13/17 at 09:00 Carbidopa/Levodopa (Sinemet (25/ 100)) 1 tab TID PO Last administered on 20:47; Admin Dose 1 TAB; Start 05/13/17 at 09:00 Hydralazine HCl (Apresoline) 10 mg Q4H PRN IV SBP>170; Start 05/15/17 at 13:30 Doxycycline Hyclate (Vibramycin) 100 mg BID PO Last administered on 05/19/17 20:47; Admin Dose 100 MG; Start 05/17/17 at 12:00; Stop 05/24/17 at 11:59 Ketoconazole (Nizoral Cr) 1 applic DAILY TOP Last administered on 05/19/17 10 :17; Admin Dose 1 APPLIC; Start 05/18/17 at 09:00 Collagenase (Santyl) 1 applic DAILY TOP ; Start 05/17/17 at 14:00 Potassium Chloride 20 meq 20 meq BID PO Last administered on 05/19/17 20:48; Admin Dose 20 MEQ; Start 05/19/17 at 10:00 Ampicillin (Ampicillin 1 Gm/ NS (Pmx)) 50 ml @ 100 mls/hr Q6 IVPB Last administered on 05/20/17t 05:52; Admin Dose 100 MLS/HR; Start 05/19/17 at 18: 00 VINNY SALINAS MD May 20, 2017 09:10
--- NOTE | 2017-05-20 09:22 | CONS ---
Date/Time of Note Date/Time of Note DATE: 05/20/17 TIME: 09:20 Assessment/Plan Assessment/Plan Additional Assessment/Plan 1. Severe symptomatic bradycardia- improved 2. GUY on possible CKD due to Prerenal azotemia 3. Possible CKD 4. Acute hyperkalemia due to GUY 5.AMs due to acute metabolic encephalopathy and bradycardia 6. H.o CHF 7. H/o HTN 8. h/o hypothyroidism 9/ H/o parkinsonism 10. Hyperuricemia without gout 11. Bilateral foot ulcerations Plan: Cr 0.56 today, s/p 1liter D5W, Now Na improved to 143, K 3.4- will give KCl 20mEQ IV x 1 dose now podiatry following for bilateral foot ulcerations. On allopurinol 100mg po daily for hyperuricemia. Renal US showed normal right kidney, left kidney not seen will continue to follow up Consultation Date/Type/Reason Admit Date/Time May 07, 2017 at 15:05 Initial Consult Date 05/08/17 Type of Consultation: NEPHROLOGY Referring Provider: ABI GARCIA 24 HR Interval Summary Free Text/Dictation s/p 1 liter of D5W, Na improved to 143,K 3.4 Exam/Review of Systems Vital Signs Vitals Vital Signs Date Time Temp Pulse Resp B/P Pulse Ox O2 Delivery O2 Flow Rate FiO2 05/20/17 08:11 55 05/20/17 08:01 99.0 17 126/63 96 05/20/17 02:44 3.0 05/19/17 08:05 Nasal Cannula 05/19/17 02:18 27 Intake and Output 05/19/17 05/19/17 05/20/17 15:00 23:00 07:00 Intake Total 1190 ml 350 ml Output Total 1650 ml 750 ml Balance -460 ml -400 ml Exam Constitutional: alert, well developed Psych: nl mood/affect Cardiovascular: S1 S2 RRR no murmur Gastrointestinal: non-tender, soft Musculoskeletal: nl extremities to inspection Extremities: normal pulses, bilateral foot ulceration Neurological: confused (at times.), nl speech, other (oriented to person, place ) Results Result Diagram: 05/20/17 0624 05/20/17 0624 Results 24 hrs Laboratory Tests Test 05/20/17 06:24 White Blood Count 5.7 Red Blood Count 2.86 L Hemoglobin 8.1 L Hematocrit 26.7 L Mean Corpuscular Volume 93.4 Mean Corpuscular Hemoglobin 28.3 L Mean Corpuscular Hemoglobin Concent 30.3 L Red Cell Distribution Width 15.5 H Platelet Count 387 Mean Platelet Volume 11.1 H Neutrophils % 66.1 Lymphocytes % 15.0 Monocytes % 13.0 H Eosinophils % 4.0 Basophils % 0.7 Nucleated Red Blood Cells % 0.0 Neutrophils # 3.8 Lymphocytes # 0.9 Monocytes # 0.7 Eosinophils # 0.2 Basophils # 0.0 Nucleated Red Blood Cells # 0.0 Sodium Level 143 Potassium Level 3.4 L Chloride Level 104 Carbon Dioxide Level 34 H Anion Gap 8 Blood Urea Nitrogen 14 Creatinine 0.56 Glucose Level 109 Calcium Level 8.0 L Medications Medications Current Medications Ondansetron HCl (Zofran Inj) 4 mg Q6H PRN IV NAUSEA AND/OR VOMITING; Start 05/07/17 at 17:30 Acetaminophen (Tylenol Supp) 650 mg Q4H PRN [place] PAIN LEVEL 1-3 OR FEVER Last administered on 05/14/17 06:30; Admin Dose 650 MG; Start 05/07/17 at 17:30 Morphine Sulfate (morphine) 2 mg Q4H PRN IV PAIN LEVEL 7-10 Last administered on 05/19/17 21:13; Admin Dose 2 MG; Start 05/07/17 at 17:30 Enoxaparin Sodium (Lovenox) 30 mg DAILY SC Last administered on 05/19/17 10: 17; Admin Dose 30 MG; Start 05/08/17 at 09:00; Status Future hold Miscellaneous Information (* Miscellaneous Pharmacy Order) PATIENT'S OWN MEDICATI... DAILY XX ; Start 05/09/17 at 09:00 Levothyroxine Sodium (Synthroid) 137 mcg DAILY@06 NGT Last administered on 05:52; Admin Dose 137 MCG; Start 05/09/17 at 06:00 Allopurinol (Zyloprim) 100 mg DAILY PO Last administered on 05/19/17 09:54; Admin Dose 100 MG; Start 05/08/17 at 18:00 IV Flush (NS 10 ml) 10 ml PRN PRN IV IV PROTOCOL; Start 05/08/17 at 17:30 Lansoprazole (Prevacid) 30 mg DAILY@06 NGT Last administered on 05/20/17 05: 52; Admin Dose 30 MG; Start 05/12/17 at 06:00 Collagenase (Santyl) 1 applic DAILY TOP Last administered on 05/19/17 10:17; Admin Dose 1 APPLIC; Start 05/13/17 at 09:00 Nystatin (Nystatin Powder) 1 applic BID TOP Last administered on 05/19/17 20: 48; Admin Dose 1 APPLIC; Start 05/12/17 at 21:00 Aspirin (Aspirin) 81 mg DAILY PO Last administered on 05/19/17 09:53; Admin Dose 81 MG; Start 05/13/17 at 09:00 Carbidopa/Levodopa (Sinemet (25/ 100)) 1 tab TID PO Last administered on 20:47; Admin Dose 1 TAB; Start 05/13/17 at 09:00 Hydralazine HCl (Apresoline) 10 mg Q4H PRN IV SBP>170; Start 05/15/17 at 13:30 Doxycycline Hyclate (Vibramycin) 100 mg BID PO Last administered on 05/19/17 20:47; Admin Dose 100 MG; Start 05/17/17 at 12:00; Stop 05/24/17 at 11:59 Ketoconazole (Nizoral Cr) 1 applic DAILY TOP Last administered on 05/19/17 10 :17; Admin Dose 1 APPLIC; Start 05/18/17 at 09:00 Collagenase (Santyl) 1 applic DAILY TOP ; Start 05/17/17 at 14:00 Potassium Chloride 20 meq 20 meq BID PO Last administered on 05/19/17 20:48; Admin Dose 20 MEQ; Start 05/19/17 at 10:00 Ampicillin (Ampicillin 1 Gm/ NS (Pmx)) 50 ml @ 100 mls/hr Q6 IVPB Last administered on 05/20/17 05:52; Admin Dose 100 MLS/HR; Start 05/19/17 at 18: 00 ENRIQUETA HUNG MD May 20, 2017 09:22
[2017-05-20] MEDS ORDERED: POTASSIUM CHLORIDE 20 MEQ in SOD CHLORIDE 0.9% 100 ML IVPB SCH (09:30)
[2017-05-20] MEDS: POTASSIUM CHLORIDE 20 MEQ POWDER FOR ORAL SOLN PO SCH ×2 (09:59→21:34)
[2017-05-20] MEDS: CARBIDOPA/LEVODOPA (25/100) TAB PO SCH ×3 (10:00→21:34)
[2017-05-20] MEDS: ALLOPURINOL 100 MG TAB PO SCH (10:00)
[2017-05-20] MEDS: NYSTATIN 30 GM POWDER BTL TOP SCH ×2 (10:01→21:35)
[2017-05-20] MEDS: DOXYCYCLINE 100 MG TAB PO SCH ×2 (10:01→21:34)
[2017-05-20] MEDS: KETOCONAZOLE 2% 15 GM CR TOP SCH (10:01)
[2017-05-20] MEDS: [UNRECOGNIZED DRUG - REMARK] XX SCH (10:02)
[2017-05-20] MEDS: morphine 2 MG INJ IV PRN ×2 (10:02→18:29)
[2017-05-20] MEDS: ENOXAPARIN 30 MG/0.3 ML SYG SC SCH (10:42)
--- NOTE | 2017-05-20 14:30 | CONS ---
Date/Time of Note Date/Time of Note DATE: 05/20/17 TIME: 14:29 Consult Date/Type/Reason Admit Date/Time May 07, 2017 at 15:05 Initial Consult Date 05/08/17 Type of Consultation: ID Ordering Provider: ABI GARCIA Objective Vital Signs Date Time Temp Pulse Resp B/P Pulse Ox O2 Delivery O2 Flow Rate FiO2 05/20/17 12:26 54 05/20/17 11:16 98.2 18 121/66 96 05/20/17 08:20 Nasal Cannula 2.5 05/19/17 02:18 27 Intake and Output 05/19/17 05/19/17 05/20/17 15:00 23:00 07:00 Intake Total 1190 ml 350 ml Output Total 1650 ml 750 ml Balance -460 ml -400 ml Results/Medications Result Diagram: 05/20/17 0624 05/20/17 0624 Results 24 hrs Laboratory Tests Test 05/20/17 06:24 White Blood Count 5.7 Red Blood Count 2.86 L Hemoglobin 8.1 L Hematocrit 26.7 L Mean Corpuscular Volume 93.4 Mean Corpuscular Hemoglobin 28.3 L Mean Corpuscular Hemoglobin Concent 30.3 L Red Cell Distribution Width 15.5 H Platelet Count 387 Mean Platelet Volume 11.1 H Neutrophils % 66.1 Lymphocytes % 15.0 Monocytes % 13.0 H Eosinophils % 4.0 Basophils % 0.7 Nucleated Red Blood Cells % 0.0 Neutrophils # 3.8 Lymphocytes # 0.9 Monocytes # 0.7 Eosinophils # 0.2 Basophils # 0.0 Nucleated Red Blood Cells # 0.0 Sodium Level 143 Potassium Level 3.4 L Chloride Level 104 Carbon Dioxide Level 34 H Anion Gap 8 Blood Urea Nitrogen 14 Creatinine 0.56 Glucose Level 109 Calcium Level 8.0 L Medications Current Medications Ondansetron HCl (Zofran Inj) 4 mg Q6H PRN IV NAUSEA AND/OR VOMITING; Start 05/07/17 at 17:30 Acetaminophen (Tylenol Supp) 650 mg Q4H PRN [place] PAIN LEVEL 1-3 OR FEVER Last administered on 05/14/17 06:30; Admin Dose 650 MG; Start 05/07/17 at 17:30 Morphine Sulfate (morphine) 2 mg Q4H PRN IV PAIN LEVEL 7-10 Last administered on 05/20/17 10:02; Admin Dose 2 MG; Start 05/07/17 at 17:30 Enoxaparin Sodium (Lovenox) 30 mg DAILY SC Last administered on 05/20/17 10: 42; Admin Dose 30 MG; Start 05/08/17 at 09:00; Status Future hold Miscellaneous Information (* Miscellaneous Pharmacy Order) PATIENT'S OWN MEDICATI... DAILY XX ; Start 05/09/17 at 09:00 Levothyroxine Sodium (Synthroid) 137 mcg DAILY@06 NGT Last administered on 05:52; Admin Dose 137 MCG; Start 05/09/17 at 06:00 Allopurinol (Zyloprim) 100 mg DAILY PO Last administered on 05/20/17 10:00; Admin Dose 100 MG; Start 05/08/17 at 18:00 IV Flush (NS 10 ml) 10 ml PRN PRN IV IV PROTOCOL; Start 05/08/17 at 17:30 Lansoprazole (Prevacid) 30 mg DAILY@06 NGT Last administered on 05/20/17 05: 52; Admin Dose 30 MG; Start 05/12/17 at 06:00 Collagenase (Santyl) 1 applic DAILY TOP Last administered on 05/20/17 09:00; Admin Dose 1 APPLIC; Start 05/13/17 at 09:00 Nystatin (Nystatin Powder) 1 applic BID TOP Last administered on 05/20/17 10: 01; Admin Dose 1 APPLIC; Start 05/12/17 at 21:00 Aspirin (Aspirin) 81 mg DAILY PO Last administered on 05/20/17 09:00; Admin Dose 81 MG; Start 05/13/17 at 09:00 Carbidopa/Levodopa (Sinemet (25/ 100)) 1 tab TID PO Last administered on 12:31; Admin Dose 1 TAB; Start 05/13/17 at 09:00 Hydralazine HCl (Apresoline) 10 mg Q4H PRN IV SBP>170; Start 05/15/17 at 13:30 Doxycycline Hyclate (Vibramycin) 100 mg BID PO Last administered on 05/20/17 10:01; Admin Dose 100 MG; Start 05/17/17 at 12:00; Stop 05/24/17 at 11:59 Ketoconazole (Nizoral Cr) 1 applic DAILY TOP Last administered on 05/20/17 10 :01; Admin Dose 1 APPLIC; Start 05/18/17 at 09:00 Collagenase (Santyl) 1 applic DAILY TOP Last administered on 05/20/17 09:00; Admin Dose 1 APPLIC; Start 05/17/17 at 14:00 Potassium Chloride 20 meq 20 meq BID PO Last administered on 05/20/17 09:59; Admin Dose 20 MEQ; Start 05/19/17 at 10:00 Ampicillin (Ampicillin 1 Gm/ NS (Pmx)) 50 ml @ 100 mls/hr Q6 IVPB Last administered on 05/20/17 12:32; Admin Dose 100 MLS/HR; Start 05/19/17 at 18: 00 Assessment/Plan Chief Complaint/Hosp Course SUBJECTIVE: No events overnight. The patient isalert, feels good, no fevers, she has a visitor at bedside. ANTIMICROBIALS: 1. Amoxicillin. 2. Doxycycline PHYSICAL EXAMINATION: GENERAL: This is an obese, chronically ill-appearing, elderly woman who is in no distress. HEENT: Head atraumatic, normocephalic. Sclerae anicteric. Buccal mucosa dry. NECK: Supple. CHEST: Rise is symmetrical. Breath sounds diminished to bases. HEART: S1, S2. ABDOMEN: Soft. Bowel tones present. ASSESSMENT: 1. Resolving encephalopathy. 2. Bilateral lower extremities, acute on chronic cellulitis. 3. Urinary tract infection. 4. Left cephalic vein thrombosis. 5. Obesity. 6. Acute on chronic kidney disease. 7. Parkinson's dementia. PLAN: Continues to improve. Continue present care, abx, physical therapy. The patient may benefit from acute rehab post discharge. Problems: ANITA LUA NP May 20, 2017 14:30
--- NOTE | 2017-05-20 15:51 | PN ---
Date/Time of Note Date/Time of Note DATE: 05/20/17 TIME: 15:50 Assessment/Plan VTE Prophylaxis VTE Prophylaxis Intervention: SCD's Lines/Catheters IV [facility] [facility] Urinary Cath still in place: Yes Reason Cath still needed: urinary retention Assessment/Plan Chief Complaint/Hosp Course Assessment/Plan - Acute encephalopathy toxic metabolic - Possible encephalitis, Continue abx per ID. Dr. Forrest is following in neurology consultation. - Bilateral lower extremity cellulitis with wounds. Continue to biotics per ID. Dr. Stephens is following in infectious disease consultation. Dr Thomas is following in podiatry consultation. Dr. Munoz is asked to see patient in vascular surgery consultation. - Polymicrobial urinary tract infection, status post treatment - Left cephalic vein thrombosis, continue Lovenox. - Acute kidney injury, resolving. Dr. Cordoba is following in nephrology consultation. Continue IV fluids. Monitor electrolytes. - Acute respiratory insufficiency. Continue breathing treatment and oxygen supplementation. - Chronic obstructive pulmonary disease. - History of hypothyroidism. Continue levothyroxine. - History of peripheral vascular disease with history of vascular interventions. - History of Parkinson disease. Continue Sinemet. - History of osteoarthritis. - History of hyperlipidemia. Further recommendations based on clinical course. Plan of care discussed with Dr. Bonilla. Problems: Exam/Review of Systems Vital Signs Vitals Vital Signs Date Time Temp Pulse Resp B/P Pulse Ox O2 Delivery O2 Flow Rate FiO2 05/20/17 15:38 98.6 55 18 124/57 98 05/20/17 08:20 Nasal Cannula 2.5 05/19/17 02:18 27 Intake and Output 05/19/17 05/19/17 05/20/17 15:00 23:00 07:00 Intake Total 1190 ml 350 ml Output Total 1650 ml 750 ml Balance -460 ml -400 ml Exam Constitutional: alert, frail Head: normocephalic Neck: supple Respiratory: diminished breath sounds Cardiovascular: nl pulses Gastrointestinal: non-tender, soft Extremities: edema, other (Erythema improved) Neurological: confused Results Result Diagram: 05/20/17 0624 05/20/17 0624 Results 24 hrs Laboratory Tests Test 05/20/17 06:24 White Blood Count 5.7 Red Blood Count 2.86 L Hemoglobin 8.1 L Hematocrit 26.7 L Mean Corpuscular Volume 93.4 Mean Corpuscular Hemoglobin 28.3 L Mean Corpuscular Hemoglobin Concent 30.3 L Red Cell Distribution Width 15.5 H Platelet Count 387 Mean Platelet Volume 11.1 H Neutrophils % 66.1 Lymphocytes % 15.0 Monocytes % 13.0 H Eosinophils % 4.0 Basophils % 0.7 Nucleated Red Blood Cells % 0.0 Neutrophils # 3.8 Lymphocytes # 0.9 Monocytes # 0.7 Eosinophils # 0.2 Basophils # 0.0 Nucleated Red Blood Cells # 0.0 Sodium Level 143 Potassium Level 3.4 L Chloride Level 104 Carbon Dioxide Level 34 H Anion Gap 8 Blood Urea Nitrogen 14 Creatinine 0.56 Glucose Level 109 Calcium Level 8.0 L Medications Medications Current Medications Ondansetron HCl (Zofran Inj) 4 mg Q6H PRN IV NAUSEA AND/OR VOMITING; Start 05/07/17 at 17:30 Acetaminophen (Tylenol Supp) 650 mg Q4H PRN [place] PAIN LEVEL 1-3 OR FEVER Last administered on 05/14/17 06:30; Admin Dose 650 MG; Start 05/07/17 at 17:30 Morphine Sulfate (morphine) 2 mg Q4H PRN IV PAIN LEVEL 7-10 Last administered on 05/20/17 10:02; Admin Dose 2 MG; Start 05/07/17 at 17:30 Enoxaparin Sodium (Lovenox) 30 mg DAILY SC Last administered on 05/20/17 10: 42; Admin Dose 30 MG; Start 05/08/17 at 09:00; Status Future hold Miscellaneous Information (* Miscellaneous Pharmacy Order) PATIENT'S OWN MEDICATI... DAILY XX ; Start 05/09/17 at 09:00 Levothyroxine Sodium (Synthroid) 137 mcg DAILY@06 NGT Last administered on 05:52; Admin Dose 137 MCG; Start 05/09/17 at 06:00 Allopurinol (Zyloprim) 100 mg DAILY PO Last administered on 05/20/17 10:00; Admin Dose 100 MG; Start 05/08/17 at 18:00 IV Flush (NS 10 ml) 10 ml PRN PRN IV IV PROTOCOL; Start 05/08/17 at 17:30 Lansoprazole (Prevacid) 30 mg DAILY@06 NGT Last administered on 05/20/17 05: 52; Admin Dose 30 MG; Start 05/12/17 at 06:00 Collagenase (Santyl) 1 applic DAILY TOP Last administered on 05/20/17 09:00; Admin Dose 1 APPLIC; Start 05/13/17 at 09:00 Nystatin (Nystatin Powder) 1 applic BID TOP Last administered on 05/20/17 10: 01; Admin Dose 1 APPLIC; Start 05/12/17 at 21:00 Aspirin (Aspirin) 81 mg DAILY PO Last administered on 05/20/17 09:00; Admin Dose 81 MG; Start 05/13/17 at 09:00 Carbidopa/Levodopa (Sinemet (25/ 100)) 1 tab TID PO Last administered on 12:31; Admin Dose 1 TAB; Start 05/13/17 at 09:00 Hydralazine HCl (Apresoline) 10 mg Q4H PRN IV SBP>170; Start 05/15/17 at 13:30 Doxycycline Hyclate (Vibramycin) 100 mg BID PO Last administered on 05/20/17 10:01; Admin Dose 100 MG; Start 05/17/17 at 12:00; Stop 05/24/17 at 11:59 Ketoconazole (Nizoral Cr) 1 applic DAILY TOP Last administered on 05/20/17 10 :01; Admin Dose 1 APPLIC; Start 05/18/17 at 09:00 Collagenase (Santyl) 1 applic DAILY TOP Last administered on 05/20/17 09:00; Admin Dose 1 APPLIC; Start 05/17/17 at 14:00 Potassium Chloride 20 meq 20 meq BID PO Last administered on 05/20/17 09:59; Admin Dose 20 MEQ; Start 05/19/17 at 10:00 Ampicillin (Ampicillin 1 Gm/ NS (Pmx)) 50 ml @ 100 mls/hr Q6 IVPB Last administered on 05/20/17 12:32; Admin Dose 100 MLS/HR; Start 05/19/17 at 18: 00 ABI GACRIA May 20, 2017 15:50
[2017-05-21] VITALS (12 sets, daily range): BP systolic 119–132; BP diastolic 57–63; PULSE 50–61; RESP 18–20
[2017-05-21] MEDS: AMPICILLIN 1 GM/NS (PMX) 50 ML IVPB SCH ×4 (00:48→17:06)
--- NOTE | 2017-05-21 01:27 | CONS ---
DATE OF ADMISSION: 05/07/2017 DATE OF CONSULTATION: 05/20/2017 VASCULAR SURGERY CONSULTATION Dear Doctors: Ms. Moctezuma is a 77-year-old female who presented to [facility] with medical c onditions and bilateral lower extremity nonhealing ulcers, in which vascular surgery consultation wa s obtained for further evaluation. It seems the patient had had some ambulatory status with a walke r, however, has been admitted to the hospital since the beginning of this month, has not had much mo bility. The patient has been worked up by our current multidisciplinary team for her medical condit ions and has developed worsening ulcers of bilateral heels and rowe ulcers. At the moment, patient denies shortness of breath, chest pain, nausea, vomiting, fever or chills. PAST MEDICAL HISTORY: Entails COPD, Parkinson's disease, arthritis, hypothyroidism, hyperlipidemia, bilateral lower extremity atherosclerosis and bilateral lower extremity nonhealing ulcers. PAST SURGICAL HISTORY: None has been reported. FAMILY HISTORY: Positive for hypertension, coronary artery disease. SOCIAL HISTORY: Denies tobacco, alcohol or illicit drug use. PHYSICAL EXAMINATION: GENERAL: The patient is awake and able to answer some simple questions. HEENT: Normocephalic, atraumatic. Poor dentition. Mucosa moist. NECK: Supple. No carotid bruit. PULMONARY: Clear to auscultation bilaterally. No crackles. CARDIOVASCULAR: S1, S2 present. No murmurs. ABDOMEN: Soft, nontender, nondistended. Bowel sounds positive. Truncal obesity. EXTREMITIES: Right lower extremity has palpable femoral pulse, nonpalpable pedal pulse. Motor and sensory limited as the patient is not very ambulatory and she has a contracture of her knee that is about 15 to 20 degrees. She also has ulcers of her heels that seem to be decubitus related and some ulcers on her rowe. Left lower extremity, palpable femoral pulse, nonpalpable pedal pulse. Motor and sensory limited as the patient has been nonambulatory and bedridden with a knee contracture abou t 20 degrees, has a heel ulcer that seems to be decubitus related and her rowe ulcer as well. ASSESSMENT AND PLAN: Bilateral lower extremity atherosclerosis with bilateral lower extremity ulcer s: It seems the patient has developed new ulcers of her heels bilaterally which may be related to d ecubitus ulcerations. Would recommend for the patient to be offloaded off her heels with heel prote ctor boots. Further, we will plan to obtain noninvasive vascular studies to better delineate her in frainguinal atherosclerotic disease and her perfusion. I appreciate our podiatry colleagues evaluation, would recommend to continue with their local wound care. Optimize vascular status (BP meds, diet, nutrition, exercise, sugar control, antiplatelets). Discussed findings, plan and management with the patient, she understands her current status as the patient has become nonambulatory and has become bedridden and this will essentially limit some of ou r intervention from a vascular surgery standpoint. We will plan to evaluate her ultrasound findings and determine for possible angiography if needed. Discussed findings, plan and management with the patient, she understands. Thank you for allowing us to partake in the care of your patient. Please call with any questions. Dictated By: CEZAR GRESHAM/VERONIKA Conf#: [id number] DID#: [id number] CC: OSMANI PARK MD;*EndCC*
[2017-05-21] MEDS: LEVOTHYROXINE 137 MCG TAB NGT SCH (05:26)
[2017-05-21] MEDS: LANSOPRAZOLE 30 MG CAP NGT SCH (05:27)
[2017-05-21 07:29] LABS: BASOPHILS % 0.6 % (0.0-2.0); EOSINOPHILS # 0.3 10^3/ul (0.0-0.5); EOSINOPHILS % 5.1 % (0.0-7.0); HEMATOCRIT 28.3 % (37.0-47.0); HEMOGLOBIN 8.5 g/dl (12.0-16.0); LYMPHOCYTES # 0.8 10^3/ul (0.8-2.9); LYMPHOCYTES % 15.7 % (15.0-51.0); MEAN CORPUSCULAR HEMOGLOBIN 27.9 pg (29.0-33.0); MEAN CORPUSCULAR VOLUME 92.8 fl (82.0-101.0); MEAN PLATELET VOLUME 10.9 fl (7.4-10.4); MONOCYTE # 0.7 10^3/ul (0.3-0.9); MONOCYTES % 13.3 % (0.0-11.0); NEUTROPHIL # 3.3 10^3/ul (1.6-7.5); NEUTROPHILS % 63.7 % (39.0-77.0); PLATELET COUNT 431 10^3/UL (140-415); RED BLOOD COUNT 3.05 10^6/ul (4.20-5.40); RED CELL DISTRIBUTION WIDTH 15.2 % (11.5-14.5); WHITE BLOOD COUNT 5.1 10^3/ul (4.8-10.8)
[2017-05-21 07:46] LABS: CALCIUM 7.9 mg/dl (8.4-10.2); CREATININE 0.58 mg/dl (0.44-1.00); POTASSIUM 4.1 mmol/L (3.5-5.1)
[2017-05-21] MEDS: COLLAGENASE 30 GM TUBE TOP SCH ×2 (09:00→09:10)
[2017-05-21] MEDS: [UNRECOGNIZED DRUG - REMARK] XX SCH (09:00)
[2017-05-21] MEDS: CARBIDOPA/LEVODOPA (25/100) TAB PO SCH ×3 (09:09→22:22)
[2017-05-21] MEDS: ASPIRIN 81 MG TAB PO SCH (09:09)
[2017-05-21] MEDS: ALLOPURINOL 100 MG TAB PO SCH (09:09)
[2017-05-21] MEDS: POTASSIUM CHLORIDE 20 MEQ POWDER FOR ORAL SOLN PO SCH ×2 (09:09→22:22)
[2017-05-21] MEDS: DOXYCYCLINE 100 MG TAB PO SCH ×2 (09:09→22:22)
[2017-05-21] MEDS: KETOCONAZOLE 2% 15 GM CR TOP SCH (09:10)
[2017-05-21] MEDS: NYSTATIN 30 GM POWDER BTL TOP SCH ×2 (09:11→22:23)
[2017-05-21] MEDS: ENOXAPARIN 30 MG/0.3 ML SYG SC SCH (09:17)
--- NOTE | 2017-05-21 11:24 | CONS ---
Date/Time of Note Date/Time of Note DATE: 05/21/17 TIME: 11:20 Assessment/Plan Assessment/Plan Chief Complaint/Hosp Course IMP: IMPRESSION: 1. Bradycardia, severe in the 20s in the setting of hyperkalemia. Continue to follow with resolution of bradycardia after improvement in hyperkalemia.-no recurrence since improvement in hyperkalemia/ nl tsh 2. Abnormal electrocardiogram with baseline conduction system disease and right bundle branch block.-negative trop x 3/NL EF by echo this admit 3. Hypotension-improved and stable off of anti-hypertensives 4. Hyperkalemia, improved. 5. Renal failure, improved 6. Altered mental state/encephalopathy-improving now 7. Anemia with acidosis. 8. Slurred speech secondary to low cardiac output and bradycardia versus transient ischemic attack/stroke.-remains with ams 9. Fevers 10. HTN-? relation to agitation/confusion-currently improved 11.Cephalic vein thrombosis 12. LE wounds REcc: -Tele -serial ecg's -Continue asa -Follow volume status and creatnine closely with renal following and spot dose lasix as necessary -continue abx's and f/u cx data -PRN hydralazine IVP and clonidine TTS low dose -Onbgoing vascular surgery eval Problems: Consultation Date/Type/Reason Admit Date/Time May 07, 2017 at 15:05 Initial Consult Date 05/08/17 Type of Consultation: cardiology Reason for Consultation Bradycardia Referring Provider: ABI GARCIA Exam/Review of Systems Vital Signs Vitals Vital Signs Date Time Temp Pulse Resp B/P Pulse Ox O2 Delivery O2 Flow Rate FiO2 05/21/17 08:51 58 05/21/17 08:15 Nasal Cannula 2.0 05/21/17 07:52 98.6 18 132/60 96 05/19/17 02:18 27 Intake and Output 05/20/17 05/20/17 05/21/17 15:00 23:00 07:00 Intake Total 160 ml 450 ml 300 ml Output Total 400 ml 800 ml Balance 160 ml 50 ml -500 ml Exam Review of Systems: CONSTITUTIONAL: No fevers, chills. PULMONARY: No sob CARDIOVASCULAR: No chest pain/palpitations GASTROINTESTINAL: No nausea/vomiting. GENITOURINARY: No hematuria/dysuria. MUSCULOSKELETAL: No myagias/arthalgias. PSYCHIATRIC: The patient denies depression. NEUROLOGIC: lethargic Constitutional: other (sleeping, arousable) Psych: no complaints Head: normocephalic ENMT: mucosa pink and moist Neck: jvd (9 cm water), supple Respiratory: diminished breath sounds (at bases/B) Cardiovascular: regular rate and rhythm Gastrointestinal: non-tender, soft Musculoskeletal: muscle tone (normal) Extremities: pitting pedal edema (Bilateral) Neurological: other (No focal defiocits) Results Result Diagram: 05/21/17 0641 05/21/17 0641 Results 24 hrs Laboratory Tests Test 05/21/17 06:41 White Blood Count 5.1 Red Blood Count 3.05 L Hemoglobin 8.5 L Hematocrit 28.3 L Mean Corpuscular Volume 92.8 Mean Corpuscular Hemoglobin 27.9 L Mean Corpuscular Hemoglobin Concent 30.0 L Red Cell Distribution Width 15.2 H Platelet Count 431 H Mean Platelet Volume 10.9 H Neutrophils % 63.7 Lymphocytes % 15.7 Monocytes % 13.3 H Eosinophils % 5.1 Basophils % 0.6 Nucleated Red Blood Cells % 0.0 Neutrophils # 3.3 Lymphocytes # 0.8 Monocytes # 0.7 Eosinophils # 0.3 Basophils # 0.0 Nucleated Red Blood Cells # 0.0 Sodium Level 142 Potassium Level 4.1 Chloride Level 107 Carbon Dioxide Level 29 Anion Gap 10 Blood Urea Nitrogen 12 Creatinine 0.58 Glucose Level 98 Calcium Level 7.9 L Medications Medications Current Medications Ondansetron HCl (Zofran Inj) 4 mg Q6H PRN IV NAUSEA AND/OR VOMITING; Start 05/07/17 at 17:30 Acetaminophen (Tylenol Supp) 650 mg Q4H PRN [place] PAIN LEVEL 1-3 OR FEVER Last administered on 05/14/17 06:30; Admin Dose 650 MG; Start 05/07/17 at 17:30 Morphine Sulfate (morphine) 2 mg Q4H PRN IV PAIN LEVEL 7-10 Last administered on 05/20/17 18:29; Admin Dose 2 MG; Start 05/07/17 at 17:30 Enoxaparin Sodium (Lovenox) 30 mg DAILY SC Last administered on 05/21/17 09: 17; Admin Dose 30 MG; Start 05/08/17 at 09:00; Status Future hold Miscellaneous Information (* Miscellaneous Pharmacy Order) PATIENT'S OWN MEDICATI... DAILY XX ; Start 05/09/17 at 09:00 Levothyroxine Sodium (Synthroid) 137 mcg DAILY@06 NGT Last administered on 05:26; Admin Dose 137 MCG; Start 05/09/17 at 06:00 Allopurinol (Zyloprim) 100 mg DAILY PO Last administered on 05/21/17 09:09; Admin Dose 100 MG; Start 05/08/17 at 18:00 IV Flush (NS 10 ml) 10 ml PRN PRN IV IV PROTOCOL; Start 05/08/17 at 17:30 Lansoprazole (Prevacid) 30 mg DAILY@06 NGT Last administered on 05/21/17 05: 27; Admin Dose 30 MG; Start 05/12/17 at 06:00 Collagenase (Santyl) 1 applic DAILY TOP Last administered on 05/21/17 09:10; Admin Dose 1 APPLIC; Start 05/13/17 at 09:00 Nystatin (Nystatin Powder) 1 applic BID TOP Last administered on 05/21/17 09: 11; Admin Dose 1 APPLIC; Start 05/12/17 at 21:00 Aspirin (Aspirin) 81 mg DAILY PO Last administered on 05/21/17 09:09; Admin Dose 81 MG; Start 05/13/17 at 09:00 Carbidopa/Levodopa (Sinemet (25/ 100)) 1 tab TID PO Last administered on 09:09; Admin Dose 1 TAB; Start 05/13/17 at 09:00 Hydralazine HCl (Apresoline) 10 mg Q4H PRN IV SBP>170; Start 05/15/17 at 13:30 Doxycycline Hyclate (Vibramycin) 100 mg BID PO Last administered on 05/21/17 09:09; Admin Dose 100 MG; Start 05/17/17 at 12:00; Stop 05/24/17 at 11:59 Ketoconazole (Nizoral Cr) 1 applic DAILY TOP Last administered on 05/21/17 09 :10; Admin Dose 1 APPLIC; Start 05/18/17 at 09:00 Collagenase (Santyl) 1 applic DAILY TOP Last administered on 05/20/17 09:00; Admin Dose 1 APPLIC; Start 05/17/17 at 14:00 Potassium Chloride 20 meq 20 meq BID PO Last administered on 05/21/17 09:09; Admin Dose 20 MEQ; Start 05/19/17 at 10:00 Ampicillin (Ampicillin 1 Gm/ NS (Pmx)) 50 ml @ 100 mls/hr Q6 IVPB Last administered on 05/21/17 05:27; Admin Dose 100 MLS/HR; Start 05/19/17 at 18: 00 RON TORRES May 21, 2017 11:24
--- NOTE | 2017-05-21 13:05 | CONS ---
Date/Time of Note Date/Time of Note DATE: 05/21/17 TIME: 13:04 Consult Date/Type/Reason Admit Date/Time May 07, 2017 at 15:05 Initial Consult Date 05/08/17 Type of Consultation: id Ordering Provider: ABI GARCIA Objective Vital Signs Date Time Temp Pulse Resp B/P Pulse Ox O2 Delivery O2 Flow Rate FiO2 05/21/17 12:30 60 05/21/17 11:23 98.3 18 130/63 95 05/21/17 08:15 Nasal Cannula 2.0 05/19/17 02:18 27 Intake and Output 05/20/17 05/20/17 05/21/17 15:00 23:00 07:00 Intake Total 160 ml 450 ml 300 ml Output Total 400 ml 800 ml Balance 160 ml 50 ml -500 ml Results/Medications Result Diagram: 05/21/17 0641 05/21/17 0641 Results 24 hrs Laboratory Tests Test 05/21/17 06:41 White Blood Count 5.1 Red Blood Count 3.05 L Hemoglobin 8.5 L Hematocrit 28.3 L Mean Corpuscular Volume 92.8 Mean Corpuscular Hemoglobin 27.9 L Mean Corpuscular Hemoglobin Concent 30.0 L Red Cell Distribution Width 15.2 H Platelet Count 431 H Mean Platelet Volume 10.9 H Neutrophils % 63.7 Lymphocytes % 15.7 Monocytes % 13.3 H Eosinophils % 5.1 Basophils % 0.6 Nucleated Red Blood Cells % 0.0 Neutrophils # 3.3 Lymphocytes # 0.8 Monocytes # 0.7 Eosinophils # 0.3 Basophils # 0.0 Nucleated Red Blood Cells # 0.0 Sodium Level 142 Potassium Level 4.1 Chloride Level 107 Carbon Dioxide Level 29 Anion Gap 10 Blood Urea Nitrogen 12 Creatinine 0.58 Glucose Level 98 Calcium Level 7.9 L Medications Current Medications Ondansetron HCl (Zofran Inj) 4 mg Q6H PRN IV NAUSEA AND/OR VOMITING; Start 05/07/17 at 17:30 Acetaminophen (Tylenol Supp) 650 mg Q4H PRN [place] PAIN LEVEL 1-3 OR FEVER Last administered on 05/14/17 06:30; Admin Dose 650 MG; Start 05/07/17 at 17:30 Morphine Sulfate (morphine) 2 mg Q4H PRN IV PAIN LEVEL 7-10 Last administered on 05/20/17 18:29; Admin Dose 2 MG; Start 05/07/17 at 17:30 Enoxaparin Sodium (Lovenox) 30 mg DAILY SC Last administered on 05/21/17 09: 17; Admin Dose 30 MG; Start 05/08/17 at 09:00; Status Future hold Miscellaneous Information (* Miscellaneous Pharmacy Order) PATIENT'S OWN MEDICATI... DAILY XX ; Start 05/09/17 at 09:00 Levothyroxine Sodium (Synthroid) 137 mcg DAILY@06 NGT Last administered on 05:26; Admin Dose 137 MCG; Start 05/09/17 at 06:00 Allopurinol (Zyloprim) 100 mg DAILY PO Last administered on 05/21/17 09:09; Admin Dose 100 MG; Start 05/08/17 at 18:00 IV Flush (NS 10 ml) 10 ml PRN PRN IV IV PROTOCOL; Start 05/08/17 at 17:30 Lansoprazole (Prevacid) 30 mg DAILY@06 NGT Last administered on 05/21/17 05: 27; Admin Dose 30 MG; Start 05/12/17 at 06:00 Collagenase (Santyl) 1 applic DAILY TOP Last administered on 05/21/17 09:10; Admin Dose 1 APPLIC; Start 05/13/17 at 09:00 Nystatin (Nystatin Powder) 1 applic BID TOP Last administered on 05/21/17 09: 11; Admin Dose 1 APPLIC; Start 05/12/17 at 21:00 Aspirin (Aspirin) 81 mg DAILY PO Last administered on 05/21/17 09:09; Admin Dose 81 MG; Start 05/13/17 at 09:00 Carbidopa/Levodopa (Sinemet (25/ 100)) 1 tab TID PO Last administered on 12:06; Admin Dose 1 TAB; Start 05/13/17 at 09:00 Hydralazine HCl (Apresoline) 10 mg Q4H PRN IV SBP>170; Start 05/15/17 at 13:30 Doxycycline Hyclate (Vibramycin) 100 mg BID PO Last administered on 05/21/17 09:09; Admin Dose 100 MG; Start 05/17/17 at 12:00; Stop 05/24/17 at 11:59 Ketoconazole (Nizoral Cr) 1 applic DAILY TOP Last administered on 05/21/17 09 :10; Admin Dose 1 APPLIC; Start 05/18/17 at 09:00 Collagenase (Santyl) 1 applic DAILY TOP Last administered on 05/20/17 09:00; Admin Dose 1 APPLIC; Start 05/17/17 at 14:00 Potassium Chloride 20 meq 20 meq BID PO Last administered on 05/21/17 09:09; Admin Dose 20 MEQ; Start 05/19/17 at 10:00 Ampicillin (Ampicillin 1 Gm/ NS (Pmx)) 50 ml @ 100 mls/hr Q6 IVPB Last administered on 05/21/17 12:06; Admin Dose 100 MLS/HR; Start 05/19/17 at 18: 00 Assessment/Plan Chief Complaint/Hosp Course SUBJECTIVE: No events overnight, no fevers, pt is sleeping ANTIMICROBIALS: 1. Amoxicillin. 2. Doxycycline PHYSICAL EXAMINATION: GENERAL: This is an obese, chronically ill-appearing, elderly woman who is in no distress. HEENT: Head atraumatic, normocephalic. Sclerae anicteric. Buccal mucosa dry. NECK: Supple. CHEST: Rise is symmetrical. Breath sounds diminished to bases. HEART: S1, S2. ABDOMEN: Soft. Bowel tones present. ASSESSMENT: 1. Resolving encephalopathy. 2. Bilateral lower extremities, acute on chronic cellulitis. 3. Urinary tract infection. 4. Left cephalic vein thrombosis. 5. Obesity. 6. Acute on chronic kidney disease. 7. Parkinson's dementia. PLAN: Remains stable, Continue present care, abx, physical therapy. Pending Depue Problems: ANITA LUA NP May 21, 2017 13:05
[2017-05-21] MEDS: morphine 2 MG INJ IV PRN ×2 (14:07→18:13)
--- NOTE | 2017-05-21 15:25 | RADRPT ---
PROCEDURE: US Lower extremity Veins. CLINICAL INDICATION: Lower extremity gangrene. Preoperative evaluation. TECHNIQUE: Multiple sonographic images of the lower extremity veins were obtained. Evaluation is pa rtially limited due to lower extremity contractures. COMPARISON: None available FINDINGS: Right lower extremity: Groin GSV0.55 cm Upper thigh GSV 0.48 cm Mid thigh GSV 0.54 cm Lower thigh GSV 0.41 cm Knee GSV 0.47 cm Upper calf GSV 0.34 cm Mid calf GSV 0.31 cm Ankle GSV0.25 cm Left lower extremity: Groin GSV0.51 cm Upper thigh GSV 0.43 cm Mid thigh GSV 0.25 cm Lower thigh GSV 0.22 cm Knee GSV 0.24 cm Upper calf GSV 0.24 cm Mid calf GSV 0.29 cm Ankle GSV0.16 cm The vessels are compressible throughout their course. IMPRESSION: 1. Bilateral lower extremity venous mapping as detailed above. RPTAT: HLBP .Wilfred Briggs MD, Date Time Electronically viewed and signed by .Wilfred Briggs MD, MD on 05/21/2017 15:25 .P/
--- NOTE | 2017-05-21 15:47 | RADRPT ---
PROCEDURE: US Lower extremity arterial. CLINICAL INDICATION: Bilateral lower extremity nonhealing ulcers. TECHNIQUE: Multiple sonographic images of the bilateral lower extremity arteries was obtained utili zing grayscale, color-flow, and doppler imaging. The images were reviewed on a PACS workstation. Ev aluation is partially limited due to contractures of both lower extremities and inability to tolerat e blood pressure cuff for ELIZA. COMPARISON: None. FINDINGS: RIGHT LEG: Common femoral artery: 154.9 cm/s; monophasic waveforms Proximal superficial femoral artery: 145.7 cm/s; monophasic waveforms Mid superficial femoral artery: 165 cm/s; biphasic waveforms Distal superficial femoral artery: 153.6 cm/s; monophasic waveforms Popliteal artery: 79.1 cm/s; monophasic waveforms Posterior tibial artery: 94.8 cm/s; monophasic waveforms Dorsalis pedis artery: 121 cm/s; monophasic waveforms LEFT LEG: Common femoral artery: 110.7 cm/s; biphasic waveforms Proximal superficial femoral artery: 129.2 cm/s; biphasic waveforms Mid superficial femoral artery: 119.5 cm/s; biphasic waveforms Distal superficial femoral artery: 131.6 cm/s; monophasic waveforms Popliteal artery: 126.8 cm/s; monophasic waveforms Posterior tibial artery: 76.3 cm/s; monophasic waveforms Dorsalis pedis artery: 76.3 cm/s; monophasic waveforms IMPRESSION: 1. Abnormal examination demonstrating diffusely dampened waveforms in both lower extremities, right greater than left, consistent with inflow disease. 2. No hemodynamically significant stenosis. ELIZA Value Interpretation Recommendation >1.4 Calcification/Vessel Hardening Refer to a Vascular Specialist 1.0-1.4 Normal None 0.9-1.0 Acceptable None 0.8-0.9 Some Arterial Disease Treat Risk Factors 0.5-0.8 Moderate Arterial Disease Refer to a Vascular Specialist Stenosis category Peak systolic velocity (cm/s) Velocity ratio Distal artery spectral waveform <20% <150 <1.5 Triphasic, normal PSV 20% to 49% 150-200 1.5-2.0 Triphasic, normal PSV 50% to 75% 200-300 2.0-4.0 Monophasic, reduced PSV >75% >300, EDV >40 >4.0 Damped monophasic, reduced PSV Occlusion No flow Damped monophasic, reduced PSV Interpretation of arterial duplex testing of lower-extremity arteries and interventions. [employer] in Vascular Surgery. 2013;26(2-3):95-104. RPTAT: HLBP .Wilfred Briggs MD, Date Time Electronically viewed and signed by .Wilfred Briggs MD, on 05/21/2017 15:47 .P/
--- NOTE | 2017-05-21 16:00 | PN ---
Date/Time of Note Date/Time of Note DATE: 05/21/17 TIME: 15:56 Assessment/Plan VTE Prophylaxis VTE Prophylaxis Intervention: SCD's Lines/Catheters IV [facility]from [facility] Urinary Cath still in place: Yes Reason Cath still needed: urinary retention Assessment/Plan Chief Complaint/Hosp Course No change in neuro status, tolerates diet well. Pending arterial Doppler of BLE. Assessment/Plan - Acute encephalopathy toxic metabolic - Possible encephalitis, Continue abx per ID. Dr. Forrest is following in neurology consultation. - Bilateral lower extremity cellulitis with wounds. Continue to biotics per ID. Dr. Stephens is following in infectious disease consultation. Dr Thomas is following in podiatry consultation. Dr. Munoz is following patient in vascular surgery consultation. - Polymicrobial urinary tract infection, status post treatment - Left cephalic vein thrombosis, continue Lovenox. - Acute kidney injury, resolving. Dr. Cordoba is following in nephrology consultation. Continue IV fluids. Monitor electrolytes. - Acute respiratory insufficiency. Continue breathing treatment and oxygen supplementation. - Chronic obstructive pulmonary disease. - History of hypothyroidism. Continue levothyroxine. - History of peripheral vascular disease with history of vascular interventions. - History of Parkinson disease. Continue Sinemet. - History of osteoarthritis. - History of hyperlipidemia. Further recommendations based on clinical course. Plan of care discussed with Dr. Bonilla. Problems: Exam/Review of Systems Vital Signs Vitals Vital Signs Date Time Temp Pulse Resp B/P Pulse Ox O2 Delivery O2 Flow Rate FiO2 05/21/17 15:22 97.3 60 18 125/57 97 05/21/17 14:22 3.0 05/21/17 08:15 Nasal Cannula 05/19/17 02:18 27 Intake and Output 05/20/17 05/20/17 05/21/17 14:59 22:59 06:59 Intake Total 160 ml 450 ml 300 ml Output Total 400 ml 800 ml Balance 160 ml 50 ml -500 ml Exam Constitutional: alert, frail Head: normocephalic Neck: supple Respiratory: diminished breath sounds Cardiovascular: nl pulses Gastrointestinal: non-tender, soft Extremities: edema, other (Erythema improved) Neurological: confused Results Result Diagram: 05/21/17 0641 05/21/17 0641 Results 24 hrs Laboratory Tests Test 05/21/17 06:41 White Blood Count 5.1 Red Blood Count 3.05 L Hemoglobin 8.5 L Hematocrit 28.3 L Mean Corpuscular Volume 92.8 Mean Corpuscular Hemoglobin 27.9 L Mean Corpuscular Hemoglobin Concent 30.0 L Red Cell Distribution Width 15.2 H Platelet Count 431 H Mean Platelet Volume 10.9 H Neutrophils % 63.7 Lymphocytes % 15.7 Monocytes % 13.3 H Eosinophils % 5.1 Basophils % 0.6 Nucleated Red Blood Cells % 0.0 Neutrophils # 3.3 Lymphocytes # 0.8 Monocytes # 0.7 Eosinophils # 0.3 Basophils # 0.0 Nucleated Red Blood Cells # 0.0 Sodium Level 142 Potassium Level 4.1 Chloride Level 107 Carbon Dioxide Level 29 Anion Gap 10 Blood Urea Nitrogen 12 Creatinine 0.58 Glucose Level 98 Calcium Level 7.9 L Medications Medications Current Medications Ondansetron HCl (Zofran Inj) 4 mg Q6H PRN IV NAUSEA AND/OR VOMITING; Start 05/07/17 at 17:30 Acetaminophen (Tylenol Supp) 650 mg Q4H PRN [place] PAIN LEVEL 1-3 OR FEVER Last administered on 05/14/17 06:30; Admin Dose 650 MG; Start 05/07/17 at 17:30 Morphine Sulfate (morphine) 2 mg Q4H PRN IV PAIN LEVEL 7-10 Last administered on 05/21/17 14:07; Admin Dose 2 MG; Start 05/07/17 at 17:30 Enoxaparin Sodium (Lovenox) 30 mg DAILY SC Last administered on 05/21/17 09: 17; Admin Dose 30 MG; Start 05/08/17 at 09:00; Status Future hold Miscellaneous Information (* Miscellaneous Pharmacy Order) PATIENT'S OWN MEDICATI... DAILY XX ; Start 05/09/17 at 09:00 Levothyroxine Sodium (Synthroid) 137 mcg DAILY@06 NGT Last administered on 05:26; Admin Dose 137 MCG; Start 05/09/17 at 06:00 Allopurinol (Zyloprim) 100 mg DAILY PO Last administered on 05/21/17 09:09; Admin Dose 100 MG; Start 05/08/17 at 18:00 IV Flush (NS 10 ml) 10 ml PRN PRN IV IV PROTOCOL; Start 05/08/17 at 17:30 Lansoprazole (Prevacid) 30 mg DAILY@06 NGT Last administered on 05/21/17 05: 27; Admin Dose 30 MG; Start 05/12/17 at 06:00 Collagenase (Santyl) 1 applic DAILY TOP Last administered on 05/21/17 09:10; Admin Dose 1 APPLIC; Start 05/13/17 at 09:00 Nystatin (Nystatin Powder) 1 applic BID TOP Last administered on 05/21/17 09: 11; Admin Dose 1 APPLIC; Start 05/12/17 at 21:00 Aspirin (Aspirin) 81 mg DAILY PO Last administered on 05/21/17 09:09; Admin Dose 81 MG; Start 05/13/17 at 09:00 Carbidopa/Levodopa (Sinemet (25/ 100)) 1 tab TID PO Last administered on 12:06; Admin Dose 1 TAB; Start 05/13/17 at 09:00 Hydralazine HCl (Apresoline) 10 mg Q4H PRN IV SBP>170; Start 05/15/17 at 13:30 Doxycycline Hyclate (Vibramycin) 100 mg BID PO Last administered on 05/21/17 09:09; Admin Dose 100 MG; Start 05/17/17 at 12:00; Stop 05/24/17 at 11:59 Ketoconazole (Nizoral Cr) 1 applic DAILY TOP Last administered on 05/21/17 09 :10; Admin Dose 1 APPLIC; Start 05/18/17 at 09:00 Collagenase (Santyl) 1 applic DAILY TOP Last administered on 05/20/17 09:00; Admin Dose 1 APPLIC; Start 05/17/17 at 14:00 Potassium Chloride 20 meq 20 meq BID PO Last administered on 05/21/17 09:09; Admin Dose 20 MEQ; Start 05/19/17 at 10:00 Ampicillin (Ampicillin 1 Gm/ NS (Pmx)) 50 ml @ 100 mls/hr Q6 IVPB Last administered on 05/21/17 12:06; Admin Dose 100 MLS/HR; Start 05/19/17 at 18: 00 ABI GARCIA May 21, 2017 16:00
--- NOTE | 2017-05-21 16:26 | CONS ---
Date/Time of Note Date/Time of Note DATE: 05/21/17 TIME: 16:24 Assessment/Plan Assessment/Plan Additional Assessment/Plan 1. Severe symptomatic bradycardia- improved 2. GUY on possible CKD due to Prerenal azotemia 3. Possible CKD 4. Acute hyperkalemia due to GUY 5.AMs due to acute metabolic encephalopathy and bradycardia 6. H.o CHF 7. H/o HTN 8. h/o hypothyroidism 9/ H/o parkinsonism 10. Hyperuricemia without gout 11. Bilateral foot ulcerations Plan: Cr and electrolytes normal today podiatry following for bilateral foot ulcerations. On allopurinol 100mg po daily for hyperuricemia. Renal US showed normal right kidney, left kidney not seen will continue to follow up Consultation Date/Type/Reason Admit Date/Time May 07, 2017 at 15:05 Initial Consult Date 05/08/17 Type of Consultation: NEPHROLOGY Referring Provider: ABI GARCIA 24 HR Interval Summary Free Text/Dictation Cr and electrolytes stable today, BP stable Exam/Review of Systems Vital Signs Vitals Vital Signs Date Time Temp Pulse Resp B/P Pulse Ox O2 Delivery O2 Flow Rate FiO2 05/21/17 15:22 97.3 60 18 125/57 97 05/21/17 14:22 3.0 05/21/17 08:15 Nasal Cannula 05/19/17 02:18 27 Intake and Output 05/20/17 05/20/17 05/21/17 15:00 23:00 07:00 Intake Total 160 ml 450 ml 300 ml Output Total 400 ml 800 ml Balance 160 ml 50 ml -500 ml Exam Constitutional: alert, well developed Psych: nl mood/affect Cardiovascular: S1 S2 RRR no murmur Gastrointestinal: non-tender, soft Musculoskeletal: nl extremities to inspection Extremities: normal pulses, bilateral foot ulceration Neurological: confused (at times.), nl speech, other (oriented to person, place ) Results Result Diagram: 05/21/17 0641 05/21/17 0641 Results 24 hrs Laboratory Tests Test 05/21/17 06:41 White Blood Count 5.1 Red Blood Count 3.05 L Hemoglobin 8.5 L Hematocrit 28.3 L Mean Corpuscular Volume 92.8 Mean Corpuscular Hemoglobin 27.9 L Mean Corpuscular Hemoglobin Concent 30.0 L Red Cell Distribution Width 15.2 H Platelet Count 431 H Mean Platelet Volume 10.9 H Neutrophils % 63.7 Lymphocytes % 15.7 Monocytes % 13.3 H Eosinophils % 5.1 Basophils % 0.6 Nucleated Red Blood Cells % 0.0 Neutrophils # 3.3 Lymphocytes # 0.8 Monocytes # 0.7 Eosinophils # 0.3 Basophils # 0.0 Nucleated Red Blood Cells # 0.0 Sodium Level 142 Potassium Level 4.1 Chloride Level 107 Carbon Dioxide Level 29 Anion Gap 10 Blood Urea Nitrogen 12 Creatinine 0.58 Glucose Level 98 Calcium Level 7.9 L Medications Medications Current Medications Ondansetron HCl (Zofran Inj) 4 mg Q6H PRN IV NAUSEA AND/OR VOMITING; Start 05/07/17 at 17:30 Acetaminophen (Tylenol Supp) 650 mg Q4H PRN [place] PAIN LEVEL 1-3 OR FEVER Last administered on 05/14/17 06:30; Admin Dose 650 MG; Start 05/07/17 at 17:30 Morphine Sulfate (morphine) 2 mg Q4H PRN IV PAIN LEVEL 7-10 Last administered on 05/21/17 14:07; Admin Dose 2 MG; Start 05/07/17 at 17:30 Enoxaparin Sodium (Lovenox) 30 mg DAILY SC Last administered on 05/21/17 09: 17; Admin Dose 30 MG; Start 05/08/17 at 09:00; Status Future hold Miscellaneous Information (* Miscellaneous Pharmacy Order) PATIENT'S OWN MEDICATI... DAILY XX ; Start 05/09/17 at 09:00 Levothyroxine Sodium (Synthroid) 137 mcg DAILY@06 NGT Last administered on 05:26; Admin Dose 137 MCG; Start 05/09/17 at 06:00 Allopurinol (Zyloprim) 100 mg DAILY PO Last administered on 05/21/17 09:09; Admin Dose 100 MG; Start 05/08/17 at 18:00 IV Flush (NS 10 ml) 10 ml PRN PRN IV IV PROTOCOL; Start 05/08/17 at 17:30 Lansoprazole (Prevacid) 30 mg DAILY@06 NGT Last administered on 05/21/17 05: 27; Admin Dose 30 MG; Start 05/12/17 at 06:00 Collagenase (Santyl) 1 applic DAILY TOP Last administered on 05/21/17 09:10; Admin Dose 1 APPLIC; Start 05/13/17 at 09:00 Nystatin (Nystatin Powder) 1 applic BID TOP Last administered on 05/21/17 09: 11; Admin Dose 1 APPLIC; Start 05/12/17 at 21:00 Aspirin (Aspirin) 81 mg DAILY PO Last administered on 05/21/17 09:09; Admin Dose 81 MG; Start 05/13/17 at 09:00 Carbidopa/Levodopa (Sinemet (25/ 100)) 1 tab TID PO Last administered on 12:06; Admin Dose 1 TAB; Start 05/13/17 at 09:00 Hydralazine HCl (Apresoline) 10 mg Q4H PRN IV SBP>170; Start 05/15/17 at 13:30 Doxycycline Hyclate (Vibramycin) 100 mg BID PO Last administered on 05/21/17 09:09; Admin Dose 100 MG; Start 05/17/17 at 12:00; Stop 05/24/17 at 11:59 Ketoconazole (Nizoral Cr) 1 applic DAILY TOP Last administered on 05/21/17 09 :10; Admin Dose 1 APPLIC; Start 05/18/17 at 09:00 Collagenase (Santyl) 1 applic DAILY TOP Last administered on 05/20/17 09:00; Admin Dose 1 APPLIC; Start 05/17/17 at 14:00 Potassium Chloride 20 meq 20 meq BID PO Last administered on 05/21/17 09:09; Admin Dose 20 MEQ; Start 05/19/17 at 10:00 Ampicillin (Ampicillin 1 Gm/ NS (Pmx)) 50 ml @ 100 mls/hr Q6 IVPB Last administered on 05/21/17 12:06; Admin Dose 100 MLS/HR; Start 05/19/17 at 18: 00 ENRIQUETA HUNG MD May 21, 2017 16:26
[2017-05-21] MEDS ORDERED: SENNA TAB PO PRN (18:30)
[2017-05-22] VITALS (11 sets, daily range): BP systolic 118–144; BP diastolic 56–67; PULSE 52–64; RESP 18–21
[2017-05-22] MEDS: AMPICILLIN 1 GM/NS (PMX) 50 ML IVPB SCH ×5 (01:05→23:52)
[2017-05-22 06:28] LABS: BASOPHILS % 0.7 % (0.0-2.0); EOSINOPHILS # 0.3 10^3/ul (0.0-0.5); EOSINOPHILS % 5.9 % (0.0-7.0); HEMATOCRIT 28.3 % (37.0-47.0); HEMOGLOBIN 8.6 g/dl (12.0-16.0); LYMPHOCYTES # 0.9 10^3/ul (0.8-2.9); LYMPHOCYTES % 19.8 % (15.0-51.0); MEAN CORPUSCULAR HEMOGLOBIN 27.9 pg (29.0-33.0); MEAN CORPUSCULAR HGB CONC 30.4 g/dl (32.0-37.0); MEAN CORPUSCULAR VOLUME 91.9 fl (82.0-101.0); MEAN PLATELET VOLUME 10.5 fl (7.4-10.4); MONOCYTE # 0.6 10^3/ul (0.3-0.9); MONOCYTES % 14.2 % (0.0-11.0); NEUTROPHIL # 2.6 10^3/ul (1.6-7.5); NEUTROPHILS % 57.8 % (39.0-77.0); PLATELET COUNT 415 10^3/UL (140-415); RED BLOOD COUNT 3.08 10^6/ul (4.20-5.40); RED CELL DISTRIBUTION WIDTH 15.3 % (11.5-14.5); WHITE BLOOD COUNT 4.4 10^3/ul (4.8-10.8)
[2017-05-22] MEDS: LANSOPRAZOLE 30 MG CAP NGT SCH (06:31)
[2017-05-22] MEDS: LEVOTHYROXINE 137 MCG TAB NGT SCH (06:31)
[2017-05-22 07:17] LABS: CALCIUM 8.2 mg/dl (8.4-10.2); CREATININE 0.57 mg/dl (0.44-1.00); POTASSIUM 4.1 mmol/L (3.5-5.1)
[2017-05-22] MEDS: ALLOPURINOL 100 MG TAB PO SCH (08:11)
[2017-05-22] MEDS: CARBIDOPA/LEVODOPA (25/100) TAB PO SCH ×3 (08:11→21:33)
[2017-05-22] MEDS: POTASSIUM CHLORIDE 20 MEQ POWDER FOR ORAL SOLN PO SCH ×2 (08:11→21:33)
[2017-05-22] MEDS: ASPIRIN 81 MG TAB PO SCH (08:11)
[2017-05-22] MEDS: DOXYCYCLINE 100 MG TAB PO SCH ×2 (08:11→21:33)
[2017-05-22] MEDS: COLLAGENASE 30 GM TUBE TOP SCH ×2 (08:12→08:31)
[2017-05-22] MEDS: KETOCONAZOLE 2% 15 GM CR TOP SCH (08:12)
[2017-05-22] MEDS: NYSTATIN 30 GM POWDER BTL TOP SCH ×2 (08:12→21:34)
[2017-05-22] MEDS: [UNRECOGNIZED DRUG - REMARK] XX SCH (08:31)
[2017-05-22] MEDS: ENOXAPARIN 30 MG/0.3 ML SYG SC SCH (08:31)
[2017-05-22] MEDS: morphine 2 MG INJ IV PRN ×2 (12:52→17:13)
[2017-05-22] MEDS ORDERED: DOCUSATE SODIUM 100 MG CAP PO SCH (13:00)
[2017-05-22] MEDS ORDERED: BISACODYL (EC) 5 MG TAB PO ONE (13:00)
--- NOTE | 2017-05-22 13:13 | CONS ---
Date/Time of Note Date/Time of Note DATE: 05/22/17 TIME: 13:08 Assessment/Plan Assessment/Plan Chief Complaint/Hosp Course IMP: IMPRESSION: 1. Bradycardia, severe in the 20s in the setting of hyperkalemia. Continue to follow with resolution of bradycardia after improvement in hyperkalemia.-no recurrence since improvement in hyperkalemia/ nl tsh 2. Abnormal electrocardiogram with baseline conduction system disease and right bundle branch block.-negative trop x 3/NL EF by echo this admit 3. Hypotension-improved and stable off of anti-hypertensives 4. Hyperkalemia, improved. 5. Renal failure, improved 6. Altered mental state/encephalopathy-improving now 7. Anemia with acidosis. 8. Slurred speech secondary to low cardiac output and bradycardia versus transient ischemic attack/stroke.-remains with ams 9. Fevers 10. HTN-? relation to agitation/confusion-currently improved 11.Cephalic vein thrombosis 12. LE wounds REcc: -Tele -serial ecg's -Continue asa -Follow volume status and creatnine closely with renal following and spot dose lasix as necessary and thus will give dose today -continue abx's and f/u cx data -PRN hydralazine IVP and clonidine TTS low dose -Ongoing vascular surgery eval with possible LE vascular procedure today Problems: Consultation Date/Type/Reason Admit Date/Time May 07, 2017 at 15:05 Initial Consult Date 05/08/17 Type of Consultation: cardiology Reason for Consultation bradycardia Referring Provider: ABI GARCIA Exam/Review of Systems Vital Signs Vitals Vital Signs Date Time Temp Pulse Resp B/P Pulse Ox O2 Delivery O2 Flow Rate FiO2 05/22/17 12:24 63 05/22/17 11:35 97.5 21 128/60 96 05/22/17 08:00 Nasal Cannula 2.0 05/19/17 02:18 27 Intake and Output 05/21/17 05/21/17 05/22/17 15:00 23:00 07:00 Intake Total 700 ml 370 ml Output Total 600 ml 850 ml Balance 100 ml -480 ml Exam Review of Systems: CONSTITUTIONAL: No fevers, chills. PULMONARY: No sob CARDIOVASCULAR: No chest pain/palpitations GASTROINTESTINAL: No nausea/vomiting. GENITOURINARY: No hematuria/dysuria. MUSCULOSKELETAL: No myagias/arthalgias. PSYCHIATRIC: The patient denies depression. NEUROLOGIC: No weakness Constitutional: alert Psych: no complaints Head: normocephalic ENMT: mucosa pink and moist Neck: jvd, supple Respiratory: diminished breath sounds (at bases/B) Cardiovascular: regular rate and rhythm Gastrointestinal: non-tender, soft Musculoskeletal: muscle tone (normal) Extremities: other (covered by dressing) Neurological: other Results Result Diagram: 05/22/17 0604 05/22/17 0604 Results 24 hrs Laboratory Tests Test 05/22/17 06:04 White Blood Count 4.4 L Red Blood Count 3.08 L Hemoglobin 8.6 L Hematocrit 28.3 L Mean Corpuscular Volume 91.9 Mean Corpuscular Hemoglobin 27.9 L Mean Corpuscular Hemoglobin Concent 30.4 L Red Cell Distribution Width 15.3 H Platelet Count 415 Mean Platelet Volume 10.5 H Neutrophils % 57.8 Lymphocytes % 19.8 Monocytes % 14.2 H Eosinophils % 5.9 Basophils % 0.7 Nucleated Red Blood Cells % 0.0 Neutrophils # 2.6 Lymphocytes # 0.9 Monocytes # 0.6 Eosinophils # 0.3 Basophils # 0.0 Nucleated Red Blood Cells # 0.0 Sodium Level 142 Potassium Level 4.1 Chloride Level 105 Carbon Dioxide Level 31 Anion Gap 10 Blood Urea Nitrogen 10 Creatinine 0.57 Glucose Level 91 Calcium Level 8.2 L Medications Medications Current Medications Ondansetron HCl (Zofran Inj) 4 mg Q6H PRN IV NAUSEA AND/OR VOMITING; Start 05/07/17 at 17:30 Acetaminophen (Tylenol Supp) 650 mg Q4H PRN [place] PAIN LEVEL 1-3 OR FEVER Last administered on 05/14/17 06:30; Admin Dose 650 MG; Start 05/07/17 at 17:30 Morphine Sulfate (morphine) 2 mg Q4H PRN IV PAIN LEVEL 7-10 Last administered on 05/22/17 12:52; Admin Dose 2 MG; Start 05/07/17 at 17:30 Enoxaparin Sodium (Lovenox) 30 mg DAILY SC Last administered on 05/22/17 08: 31; Admin Dose 30 MG; Start 05/08/17 at 09:00; Status Future hold Miscellaneous Information (* Miscellaneous Pharmacy Order) PATIENT'S OWN MEDICATI... DAILY XX ; Start 05/09/17 at 09:00 Levothyroxine Sodium (Synthroid) 137 mcg DAILY@06 NGT Last administered on 06:31; Admin Dose 137 MCG; Start 05/09/17 at 06:00 Allopurinol (Zyloprim) 100 mg DAILY PO Last administered on 05/22/17 08:11; Admin Dose 100 MG; Start 05/08/17 at 18:00 IV Flush (NS 10 ml) 10 ml PRN PRN IV IV PROTOCOL; Start 05/08/17 at 17:30 Lansoprazole (Prevacid) 30 mg DAILY@06 NGT Last administered on 05/22/17 06: 31; Admin Dose 30 MG; Start 05/12/17 at 06:00 Collagenase (Santyl) 1 applic DAILY TOP Last administered on 05/22/17 08:12; Admin Dose 1 APPLIC; Start 05/13/17 at 09:00 Nystatin (Nystatin Powder) 1 applic BID TOP Last administered on 05/22/17 08: 12; Admin Dose 1 APPLIC; Start 05/12/17 at 21:00 Aspirin (Aspirin) 81 mg DAILY PO Last administered on 05/22/17 08:11; Admin Dose 81 MG; Start 05/13/17 at 09:00 Carbidopa/Levodopa (Sinemet (25/ 100)) 1 tab TID PO Last administered on 12:53; Admin Dose 1 TAB; Start 05/13/17 at 09:00 Hydralazine HCl (Apresoline) 10 mg Q4H PRN IV SBP>170; Start 05/15/17 at 13:30 Doxycycline Hyclate (Vibramycin) 100 mg BID PO Last administered on 05/22/17 08:11; Admin Dose 100 MG; Start 05/17/17 at 12:00; Stop 05/24/17 at 11:59 Ketoconazole (Nizoral Cr) 1 applic DAILY TOP Last administered on 05/22/17 08 :12; Admin Dose 1 APPLIC; Start 05/18/17 at 09:00 Collagenase (Santyl) 1 applic DAILY TOP Last administered on 05/20/17 09:00; Admin Dose 1 APPLIC; Start 05/17/17 at 14:00 Potassium Chloride 20 meq 20 meq BID PO Last administered on 10/19/17at 08:11; Admin Dose 20 MEQ; Start 05/19/17 at 10:00 Ampicillin (Ampicillin 1 Gm/ NS (Pmx)) 50 ml @ 100 mls/hr Q6 IVPB Last administered on 05/22/17 12:52; Admin Dose 100 MLS/HR; Start 05/19/17 at 18: 00 Senna (Senokot) 2 tab DAILY PRN PO CONSTIPATION Last administered on 03:41; Admin Dose 2 TAB; Start 05/21/17 at 18:30 Docusate Sodium (Colace) 200 mg BID PO ; Start 05/22/17 at 13:00 RON TORRES May 22, 2017 13:13
[2017-05-22] MEDS ORDERED: FUROSEMIDE 20 MG INJ IV ONE (13:30)
--- NOTE | 2017-05-22 15:44 | PDOCDIS ---
Discharge Instructions CONDITION Patient Condition: Stable HOME CARE INSTRUCTIONS: Special Diet: PUREED, NECTAR THICK ACTIVITY: Activity Restrictions: Slowly Increase Activity Rest between Activity Avoid heavy lifting Do not Drive Do not operate Machinery Do not operate Power Tool Avoid Heavy Housework FOLLOW UP/APPOINTMENTS Follow-up Plan Fu with Primary MD X 1 week FU with Cardiology as recommended Call 911 or transfer to the nearest hospital if symptoms get worse. Patient and family verbalized understanding dc instructions. Dw Dr Deal/ staff PANCHO SIGALA May 22, 2017 15:44
--- NOTE | 2017-05-22 15:48 | DS ---
Date/Time of Note Date/Time of Note DATE: 05/22/17 TIME: 15:48 Discharge Summary Admission/Discharge Info Admit Date/Time May 07, 2017 at 15:05 Discharge Date/Time Patient Condition: Stable Hospital Course IMP: IMPRESSION: 1. Bradycardia, severe in the 20s in the setting of hyperkalemia. Continue to follow with resolution of bradycardia after improvement in hyperkalemia.-no recurrence since improvement in hyperkalemia/ nl tsh 2. Abnormal electrocardiogram with baseline conduction system disease and right bundle branch block.-negative trop x 3/NL EF by echo this admit 3. Hypotension-improved and stable off of anti-hypertensives 4. Hyperkalemia, improved. 5. Renal failure, improved 6. Altered mental state/encephalopathy-improving now 7. Anemia with acidosis. 8. Slurred speech secondary to low cardiac output and bradycardia versus transient ischemic attack/stroke.-remains with ams 9. Fevers 10. HTN-? relation to agitation/confusion-currently improved 11.Cephalic vein thrombosis 12. LE wounds REcc: -Tele -serial ecg's -Continue asa -Follow volume status and creatnine closely with renal following and spot dose lasix as necessary and thus will give dose today -continue abx's and f/u cx data -PRN hydralazine IVP and clonidine TTS low dose -Ongoing vascular surgery eval with possible LE vascular procedure today Home Meds Reported Medications Metolazone* (Metolazone*) 5 Mg Tablet, 5 MG PO DAILY, TAB 05/07/17 Diclofenac Sodium* (Voltaren* Gel) 1% -100 Gm Gel, 2 GM TOP TID, #1 TUB 05/07/17 Albuterol Sulfate* (Ventolin HFA*) 18 Gm Hfa.aer.ad, 2 PUFF INHALATION Q6H Y for WHEEZING AND SOB, #1 INHALER 05/07/17 Levothyroxine Sodium* (Levothyroxine Sodium*) 137 Mcg Tablet, 137 MCG PO BEFORE BREAKFAST, #30 TAB 05/07/17 Simethicone* (Mylicon*) 80 Mg Tab, 80 MG PO Q4 Y for DISTENSION/GAS/BLOATING, TAB 05/07/17 Potassium Chloride* (Potassium Chloride*) 20 Meq Tablet.er, 20 MEQ PO DAILY, TAB.SA 05/07/17 Furosemide* (Furosemide*) 40 Mg Tablet, 40 MG PO DAILY, TAB 05/07/17 Hydrocodone/Acetaminophen ([place] 5-325 Tablet) 1 Each Tablet, 1 EACH PO Q6 Y for SEVERE PAIN LEVEL 7-10, TAB 05/07/17 Acetaminophen* (Acetaminophen*) 500 MG Extra Strength Tablet, 1000 MG PO Q4 Y for PAIN, TAB 05/07/17 Pramipexole* (Pramipexole*) 0.5 Mg Tablet, 0.5 MG PO TID, TAB 05/07/17 Carbidopa/Levodopa (Carbidopa-Levo ER 25-100 Tab) 1 Each Tablet.er, 1 EACH PO TID, TAB 05/07/17 Follow-up Plan Call 911 or transfer to the nearest hospital if symptoms get worse. Patient and family verbalized understanding dc instructions. Dw Dr Deal/ staff Primary Care Provider Matt Anderson MD Pending Labs Laboratory Tests Test 05/22/17 06:04 White Blood Count 4.410^3/ul (4.8-10.8) Red Blood Count 3.0810^6/ul (4.20-5.40) Hemoglobin 8.6g/dl (12.0-16.0) Hematocrit 28.3% (37.0-47.0) Mean Corpuscular Volume 91.9fl (82.0-101.0) Mean Corpuscular Hemoglobin 27.9pg (29.0-33.0) Mean Corpuscular Hemoglobin Concent 30.4g/dl (32.0-37.0) Red Cell Distribution Width 15.3% (11.5-14.5) Platelet Count 66726^3/UL (140-415) Mean Platelet Volume 10.5fl (7.4-10.4) Neutrophils % 57.8% (39.0-77.0) Lymphocytes % 19.8% (15.0-51.0) Monocytes % 14.2% (0.0-11.0) Eosinophils % 5.9% (0.0-7.0) Basophils % 0.7% (0.0-2.0) Nucleated Red Blood Cells % 0.0/100WBC (0.0-0.0) Neutrophils # 2.610^3/ul (1.6-7.5) Lymphocytes # 0.910^3/ul (0.8-2.9) Monocytes # 0.610^3/ul (0.3-0.9) Eosinophils # 0.310^3/ul (0.0-0.5) Basophils # 0.010^3/ul (0.0-0.1) Nucleated Red Blood Cells # 0.010^3/ul (0.0-0.0) Sodium Level 142mmol/L (135-144) Potassium Level 4.1mmol/L (3.5-5.1) Chloride Level 105mmol/L (97-110) Carbon Dioxide Level 31mmol/L (21-31) Anion Gap 10 (8-16) Blood Urea Nitrogen 10mg/dl (7-20) Creatinine 0.57mg/dl (0.44-1.00) Glucose Level 91mg/dl (70-220) Calcium Level 8.2mg/dl (8.4-10.2) PANCHO SIGALA May 22, 2017 15:48
[2017-05-22] MEDS: BALSAM PERU/CASTOR OIL 60 GM TUBE TOP SCH ×2 (17:12→23:52)
--- NOTE | 2017-05-22 18:04 | CONS ---
Date/Time of Note Date/Time of Note DATE: 05/22/17 TIME: 18:04 Assessment/Plan Assessment/Plan Additional Assessment/Plan 1. Severe symptomatic bradycardia- improved 2. GUY on possible CKD due to Prerenal azotemia 3. Possible CKD 4. Acute hyperkalemia due to GUY 5.AMs due to acute metabolic encephalopathy and bradycardia 6. H.o CHF 7. H/o HTN 8. h/o hypothyroidism 9/ H/o parkinsonism 10. Hyperuricemia without gout 11. Bilateral foot ulcerations Plan: Cr and electrolytes normal today podiatry following for bilateral foot ulcerations. On allopurinol 100mg po daily for hyperuricemia. Renal US showed normal right kidney, left kidney not seen will continue to follow up Consultation Date/Type/Reason Admit Date/Time May 07, 2017 at 15:05 Initial Consult Date 05/08/17 Type of Consultation: NEPHROLOGY Referring Provider: ABI GARCIA 24 HR Interval Summary Free Text/Dictation no acute events, BP stable, afebrile, Exam/Review of Systems Vital Signs Vitals Vital Signs Date Time Temp Pulse Resp B/P Pulse Ox O2 Delivery O2 Flow Rate FiO2 05/22/17 16:13 60 05/22/17 15:45 98.3 19 120/56 95 05/22/17 08:00 Nasal Cannula 2.0 05/19/17 02:18 27 Intake and Output 05/21/17 05/21/17 05/22/17 15:00 23:00 07:00 Intake Total 700 ml 370 ml Output Total 600 ml 850 ml Balance 100 ml -480 ml Results Result Diagram: 05/22/17 0604 05/22/17 0604 Results 24 hrs Laboratory Tests Test 05/22/17 06:04 White Blood Count 4.4 L Red Blood Count 3.08 L Hemoglobin 8.6 L Hematocrit 28.3 L Mean Corpuscular Volume 91.9 Mean Corpuscular Hemoglobin 27.9 L Mean Corpuscular Hemoglobin Concent 30.4 L Red Cell Distribution Width 15.3 H Platelet Count 415 Mean Platelet Volume 10.5 H Neutrophils % 57.8 Lymphocytes % 19.8 Monocytes % 14.2 H Eosinophils % 5.9 Basophils % 0.7 Nucleated Red Blood Cells % 0.0 Neutrophils # 2.6 Lymphocytes # 0.9 Monocytes # 0.6 Eosinophils # 0.3 Basophils # 0.0 Nucleated Red Blood Cells # 0.0 Sodium Level 142 Potassium Level 4.1 Chloride Level 105 Carbon Dioxide Level 31 Anion Gap 10 Blood Urea Nitrogen 10 Creatinine 0.57 Glucose Level 91 Calcium Level 8.2 L Medications Medications Current Medications Ondansetron HCl (Zofran Inj) 4 mg Q6H PRN IV NAUSEA AND/OR VOMITING; Start 05/07/17 at 17:30 Acetaminophen (Tylenol Supp) 650 mg Q4H PRN [place] PAIN LEVEL 1-3 OR FEVER Last administered on 05/14/17 06:30; Admin Dose 650 MG; Start 05/07/17 at 17:30 Morphine Sulfate (morphine) 2 mg Q4H PRN IV PAIN LEVEL 7-10 Last administered on 05/22/17 17:13; Admin Dose 2 MG; Start 05/07/17 at 17:30 Enoxaparin Sodium (Lovenox) 30 mg DAILY SC Last administered on 05/22/17 08: 31; Admin Dose 30 MG; Start 05/08/17 at 09:00; Status Future hold Miscellaneous Information (* Miscellaneous Pharmacy Order) PATIENT'S OWN MEDICATI... DAILY XX ; Start 05/09/17 at 09:00 Levothyroxine Sodium (Synthroid) 137 mcg DAILY@06 NGT Last administered on 06:31; Admin Dose 137 MCG; Start 05/09/17 at 06:00 Allopurinol (Zyloprim) 100 mg DAILY PO Last administered on 05/22/17 08:11; Admin Dose 100 MG; Start 05/08/17 at 18:00 IV Flush (NS 10 ml) 10 ml PRN PRN IV IV PROTOCOL; Start 05/08/17 at 17:30 Lansoprazole (Prevacid) 30 mg DAILY@06 NGT Last administered on 05/22/17 06: 31; Admin Dose 30 MG; Start 05/12/17 at 06:00 Collagenase (Santyl) 1 applic DAILY TOP Last administered on 05/22/17 08:12; Admin Dose 1 APPLIC; Start 05/13/17 at 09:00 Nystatin (Nystatin Powder) 1 applic BID TOP Last administered on 05/22/17 08: 12; Admin Dose 1 APPLIC; Start 05/12/17 at 21:00 Aspirin (Aspirin) 81 mg DAILY PO Last administered on 05/22/17 08:11; Admin Dose 81 MG; Start 05/13/17 at 09:00 Carbidopa/Levodopa (Sinemet (25/ 100)) 1 tab TID PO Last administered on 12:53; Admin Dose 1 TAB; Start 05/13/17 at 09:00 Hydralazine HCl (Apresoline) 10 mg Q4H PRN IV SBP>170; Start 05/15/17 at 13:30 Doxycycline Hyclate (Vibramycin) 100 mg BID PO Last administered on 05/22/17 08:11; Admin Dose 100 MG; Start 05/17/17 at 12:00; Stop 05/24/17 at 11:59 Ketoconazole (Nizoral Cr) 1 applic DAILY TOP Last administered on 05/22/17 08 :12; Admin Dose 1 APPLIC; Start 05/18/17 at 09:00 Collagenase (Santyl) 1 applic DAILY TOP Last administered on 05/20/17 09:00; Admin Dose 1 APPLIC; Start 05/17/17 at 14:00 Potassium Chloride 20 meq 20 meq BID PO Last administered on 05/22/17 08:11; Admin Dose 20 MEQ; Start 05/19/17 at 10:00 Ampicillin (Ampicillin 1 Gm/ NS (Pmx)) 50 ml @ 100 mls/hr Q6 IVPB Last administered on 05/22/17 17:12; Admin Dose 100 MLS/HR; Start 05/19/17 at 18: 00 Senna (Senokot) 2 tab DAILY PRN PO CONSTIPATION Last administered on 03:41; Admin Dose 2 TAB; Start 05/21/17 at 18:30 Docusate Sodium (Colace) 200 mg BID PO ; Start 05/22/17 at 21:00 ENRIQUETA HUNG MD May 22, 2017 18:04
[2017-05-22] MEDS: DOCUSATE SODIUM 100 MG CAP PO SCH (21:33)
--- NOTE | 2017-05-22 22:15 | CONS ---
Date/Time of Note Date/Time of Note DATE: 05/22/17 TIME: 22:13 Consult Date/Type/Reason Admit Date/Time May 07, 2017 at 15:05 Initial Consult Date 05/08/17 Type of Consultation: ID Ordering Provider: ABI GARCIA Objective Vital Signs Date Time Temp Pulse Resp B/P Pulse Ox O2 Delivery O2 Flow Rate FiO2 05/22/17 21:40 3.0 05/22/17 20:00 64 05/22/17 20:00 98.1 18 139/62 96 05/22/17 08:00 Nasal Cannula 05/19/17 02:18 27 Intake and Output 05/21/17 05/21/17 05/22/17 15:00 23:00 07:00 Intake Total 700 ml 370 ml Output Total 600 ml 850 ml Balance 100 ml -480 ml Results/Medications Result Diagram: 05/22/17 0604 05/22/17 0604 Results 24 hrs Laboratory Tests Test 05/22/17 06:04 White Blood Count 4.4 L Red Blood Count 3.08 L Hemoglobin 8.6 L Hematocrit 28.3 L Mean Corpuscular Volume 91.9 Mean Corpuscular Hemoglobin 27.9 L Mean Corpuscular Hemoglobin Concent 30.4 L Red Cell Distribution Width 15.3 H Platelet Count 415 Mean Platelet Volume 10.5 H Neutrophils % 57.8 Lymphocytes % 19.8 Monocytes % 14.2 H Eosinophils % 5.9 Basophils % 0.7 Nucleated Red Blood Cells % 0.0 Neutrophils # 2.6 Lymphocytes # 0.9 Monocytes # 0.6 Eosinophils # 0.3 Basophils # 0.0 Nucleated Red Blood Cells # 0.0 Sodium Level 142 Potassium Level 4.1 Chloride Level 105 Carbon Dioxide Level 31 Anion Gap 10 Blood Urea Nitrogen 10 Creatinine 0.57 Glucose Level 91 Calcium Level 8.2 L Medications Current Medications Ondansetron HCl (Zofran Inj) 4 mg Q6H PRN IV NAUSEA AND/OR VOMITING; Start 05/07/17 at 17:30 Acetaminophen (Tylenol Supp) 650 mg Q4H PRN [place] PAIN LEVEL 1-3 OR FEVER Last administered on 05/14/17 06:30; Admin Dose 650 MG; Start 05/07/17 at 17:30 Morphine Sulfate (morphine) 2 mg Q4H PRN IV PAIN LEVEL 7-10 Last administered on 05/22/17 17:13; Admin Dose 2 MG; Start 05/07/17 at 17:30 Enoxaparin Sodium (Lovenox) 30 mg DAILY SC Last administered on 05/22/17 08: 31; Admin Dose 30 MG; Start 05/08/17 at 09:00; Status Future hold Miscellaneous Information (* Miscellaneous Pharmacy Order) PATIENT'S OWN MEDICATI... DAILY XX ; Start 05/09/17 at 09:00 Levothyroxine Sodium (Synthroid) 137 mcg DAILY@06 NGT Last administered on 06:31; Admin Dose 137 MCG; Start 05/09/17 at 06:00 Allopurinol (Zyloprim) 100 mg DAILY PO Last administered on 05/22/17 08:11; Admin Dose 100 MG; Start 05/08/17 at 18:00 IV Flush (NS 10 ml) 10 ml PRN PRN IV IV PROTOCOL; Start 05/08/17 at 17:30 Lansoprazole (Prevacid) 30 mg DAILY@06 NGT Last administered on 05/22/17 06: 31; Admin Dose 30 MG; Start 05/12/17 at 06:00 Collagenase (Santyl) 1 applic DAILY TOP Last administered on 05/22/17 08:12; Admin Dose 1 APPLIC; Start 05/13/17 at 09:00 Nystatin (Nystatin Powder) 1 applic BID TOP Last administered on 05/22/17 21: 34; Admin Dose 1 APPLIC; Start 05/12/17 at 21:00 Aspirin (Aspirin) 81 mg DAILY PO Last administered on 05/22/17 08:11; Admin Dose 81 MG; Start 05/13/17 at 09:00 Carbidopa/Levodopa (Sinemet (25/ 100)) 1 tab TID PO Last administered on 21:33; Admin Dose 1 TAB; Start 05/13/17 at 09:00 Hydralazine HCl (Apresoline) 10 mg Q4H PRN IV SBP>170; Start 05/15/17 at 13:30 Doxycycline Hyclate (Vibramycin) 100 mg BID PO Last administered on 05/22/17 21:33; Admin Dose 100 MG; Start 05/17/17 at 12:00; Stop 05/24/17 at 11:59 Ketoconazole (Nizoral Cr) 1 applic DAILY TOP Last administered on 05/22/17 08 :12; Admin Dose 1 APPLIC; Start 05/18/17 at 09:00 Collagenase (Santyl) 1 applic DAILY TOP Last administered on 05/20/17 09:00; Admin Dose 1 APPLIC; Start 05/17/17 at 14:00 Potassium Chloride 20 meq 20 meq BID PO Last administered on 05/22/17 21:33; Admin Dose 20 MEQ; Start 05/19/17 at 10:00 Ampicillin (Ampicillin 1 Gm/ NS (Pmx)) 50 ml @ 100 mls/hr Q6 IVPB Last administered on 05/22/17 17:12; Admin Dose 100 MLS/HR; Start 05/19/17 at 18: 00 Senna (Senokot) 2 tab DAILY PRN PO CONSTIPATION Last administered on 03:41; Admin Dose 2 TAB; Start 05/21/17 at 18:30 Docusate Sodium (Colace) 200 mg BID PO Last administered on 05/22/17 21:33; Admin Dose 200 MG; Start 05/22/17 at 21:00 Assessment/Plan Chief Complaint/Hosp Course SUBJECTIVE: No events overnight, lethargic, responsive, confused ANTIMICROBIALS: 1. Amoxicillin. 2. Doxycycline PHYSICAL EXAMINATION: GENERAL: This is an obese, chronically ill-appearing, elderly woman who is in no distress. HEENT: Head atraumatic, normocephalic. Sclerae anicteric. Buccal mucosa dry. NECK: Supple. CHEST: Rise is symmetrical. Breath sounds diminished to bases. HEART: S1, S2. ABDOMEN: Soft. Bowel tones present. ASSESSMENT: 1. Resolving encephalopathy. 2. Bilateral lower extremities, acute on chronic cellulitis. 3. Urinary tract infection. 4. Left cephalic vein thrombosis. 5. Obesity. 6. Acute on chronic kidney disease. 7. Parkinson's dementia. PLAN: Remains unchanged, continue present care, abx, physical therapy. DW staff Problems: ANITA LUA NP May 22, 2017 22:15
[2017-05-23] VITALS (10 sets, daily range): BP systolic 103–133; BP diastolic 58–62; PULSE 58–63; RESP 18–20
[2017-05-23] MEDS: AMPICILLIN 1 GM/NS (PMX) 50 ML IVPB SCH ×3 (05:39→17:51)
[2017-05-23] MEDS: LANSOPRAZOLE 30 MG CAP NGT SCH (05:39)
[2017-05-23] MEDS: LEVOTHYROXINE 137 MCG TAB NGT SCH (05:39)
[2017-05-23] MEDS: morphine 2 MG INJ IV PRN ×2 (05:40→12:45)
[2017-05-23] MEDS: DOXYCYCLINE 100 MG TAB PO SCH (08:17)
[2017-05-23] MEDS: CARBIDOPA/LEVODOPA (25/100) TAB PO SCH ×2 (08:17→12:21)
[2017-05-23] MEDS: ALLOPURINOL 100 MG TAB PO SCH (08:17)
[2017-05-23] MEDS: ASPIRIN 81 MG TAB PO SCH (08:18)
[2017-05-23] MEDS: POTASSIUM CHLORIDE 20 MEQ POWDER FOR ORAL SOLN PO SCH (08:18)
[2017-05-23] MEDS: DOCUSATE SODIUM 100 MG CAP PO SCH (08:18)
[2017-05-23] MEDS: COLLAGENASE 30 GM TUBE TOP SCH ×2 (08:19→08:28)
[2017-05-23] MEDS: BALSAM PERU/CASTOR OIL 60 GM TUBE TOP SCH (08:19)
[2017-05-23] MEDS: KETOCONAZOLE 2% 15 GM CR TOP SCH (08:19)
[2017-05-23] MEDS: ENOXAPARIN 30 MG/0.3 ML SYG SC SCH (08:26)
[2017-05-23] MEDS: NYSTATIN 30 GM POWDER BTL TOP SCH (08:27)
[2017-05-23] MEDS: [UNRECOGNIZED DRUG - REMARK] XX SCH (08:28)
--- NOTE | 2017-05-23 12:53 | CONS ---
Date/Time of Note Date/Time of Note DATE: 05/23/17 TIME: 12:52 Consult Date/Type/Reason Admit Date/Time May 07, 2017 at 15:05 Initial Consult Date 05/08/17 Type of Consultation: ID Ordering Provider: ABI GARCIA Objective Vital Signs Date Time Temp Pulse Resp B/P Pulse Ox O2 Delivery O2 Flow Rate FiO2 05/23/17 12:17 63 05/23/17 11:03 98.4 19 126/60 98 05/23/17 10:38 2.0 05/23/17 07:46 Nasal Cannula Intake and Output 05/22/17 05/22/17 05/23/17 15:00 23:00 07:00 Intake Total 50 ml 350 ml 300 ml Output Total 2100 ml 400 ml Balance 50 ml -1750 ml -100 ml Results/Medications Result Diagram: 05/22/17 0604 05/22/17 0604 Medications Current Medications Ondansetron HCl (Zofran Inj) 4 mg Q6H PRN IV NAUSEA AND/OR VOMITING; Start 05/07/17 at 17:30 Acetaminophen (Tylenol Supp) [address] PAIN LEVEL 1-3 OR FEVER Last administered on 05/14/17 06:30; Admin Dose 650 MG; Start 05/07/17 at 17:30 Morphine Sulfate (morphine) 2 mg Q4H PRN IV PAIN LEVEL 7-10 Last administered on 05/23/17 12:45; Admin Dose 2 MG; Start 05/07/17 at 17:30 Enoxaparin Sodium (Lovenox) 30 mg DAILY SC Last administered on 05/23/17 08: 26; Admin Dose 30 MG; Start 05/08/17 at 09:00; Status Future hold Miscellaneous Information (* Miscellaneous Pharmacy Order) PATIENT'S OWN MEDICATI... DAILY XX ; Start 05/09/17 at 09:00 Levothyroxine Sodium (Synthroid) 137 mcg DAILY@06 NGT Last administered on 05:39; Admin Dose 137 MCG; Start 05/09/17 at 06:00 Allopurinol (Zyloprim) 100 mg DAILY PO Last administered on 05/23/17 08:17; Admin Dose 100 MG; Start 05/08/17 at 18:00 IV Flush (NS 10 ml) 10 ml PRN PRN IV IV PROTOCOL; Start 05/08/17 at 17:30 Lansoprazole (Prevacid) 30 mg DAILY@06 NGT Last administered on 05/23/17 05: 39; Admin Dose 30 MG; Start 05/12/17 at 06:00 Collagenase (Santyl) 1 applic DAILY TOP Last administered on 05/23/17 08:19; Admin Dose 1 APPLIC; Start 05/13/17 at 09:00 Nystatin (Nystatin Powder) 1 applic BID TOP Last administered on 05/23/17 08: 27; Admin Dose 1 APPLIC; Start 05/12/17 at 21:00 Aspirin (Aspirin) 81 mg DAILY PO Last administered on 05/23/17 08:18; Admin Dose 81 MG; Start 05/13/17 at 09:00 Carbidopa/Levodopa (Sinemet (25/ 100)) 1 tab TID PO Last administered on 12:21; Admin Dose 1 TAB; Start 05/13/17 at 09:00 Hydralazine HCl (Apresoline) 10 mg Q4H PRN IV SBP>170; Start 05/15/17 at 13:30 Doxycycline Hyclate (Vibramycin) 100 mg BID PO Last administered on 05/23/17 08:17; Admin Dose 100 MG; Start 05/17/17 at 12:00; Stop 05/24/17 at 11:59 Ketoconazole (Nizoral Cr) 1 applic DAILY TOP Last administered on 05/23/17 08 :19; Admin Dose 1 APPLIC; Start 05/18/17 at 09:00 Collagenase (Santyl) 1 applic DAILY TOP Last administered on 05/20/17 09:00; Admin Dose 1 APPLIC; Start 05/17/17 at 14:00 Potassium Chloride 20 meq 20 meq BID PO Last administered on 05/23/17 08:18; Admin Dose 20 MEQ; Start 05/19/17 at 10:00 Ampicillin (Ampicillin 1 Gm/ NS (Pmx)) 50 ml @ 100 mls/hr Q6 IVPB Last administered on 05/23/17 12:20; Admin Dose 100 MLS/HR; Start 05/19/17 at 18: 00 Senna (Senokot) 2 tab DAILY PRN PO CONSTIPATION Last administered on 03:41; Admin Dose 2 TAB; Start 05/21/17 at 18:30 Docusate Sodium (Colace) 200 mg BID PO Last administered on 05/23/17 08:18; Admin Dose 200 MG; Start 05/22/17 at 21:00 Assessment/Plan Chief Complaint/Hosp Course SUBJECTIVE: No events overnight, awake, confused, looks comfortable no fevers ANTIMICROBIALS: 1. Amoxicillin. 2. Doxycycline PHYSICAL EXAMINATION: GENERAL: This is an obese, chronically ill-appearing, elderly woman who is in no distress. HEENT: Head atraumatic, normocephalic. Sclerae anicteric. Buccal mucosa dry. NECK: Supple. CHEST: Rise is symmetrical. Breath sounds diminished to bases. HEART: S1, S2. ABDOMEN: Soft. Bowel tones present. ASSESSMENT: 1. Resolving encephalopathy. 2. Bilateral lower extremities, acute on chronic cellulitis. 3. Urinary tract infection. 4. Left cephalic vein thrombosis. 5. Obesity. 6. Acute on chronic kidney disease. 7. Parkinson's dementia. PLAN: Remains stable, mental status improving, BLE look better, continue present care, abx, aspiration precautions staff Problems: ANITA LUA NP May 23, 2017 12:53
--- NOTE | 2017-05-23 13:04 | CONS ---
Date/Time of Note Date/Time of Note DATE: 05/23/17 TIME: 12:57 Assessment/Plan Assessment/Plan Chief Complaint/Hosp Course IMP: IMPRESSION: 1. Bradycardia, severe in the 20s in the setting of hyperkalemia. Continue to follow with resolution of bradycardia after improvement in hyperkalemia.-no recurrence since improvement in hyperkalemia/ nl tsh 2. Abnormal electrocardiogram with baseline conduction system disease and right bundle branch block.-negative trop x 3/NL EF by echo this admit 3. Hypotension-improved and stable off of anti-hypertensives 4. Hyperkalemia, improved. 5. Renal failure, improved 6. Altered mental state/encephalopathy-improving now 7. Anemia with acidosis. 8. Slurred speech secondary to low cardiac output and bradycardia versus transient ischemic attack/stroke.-improving MS 9. Fevers 10. HTN-? relation to agitation/confusion-currently improved 11.Cephalic vein thrombosis 12. LE wounds REcc: -Tele -serial ecg's -Continue asa -Follow volume status and creatnine closely with renal following and spot dose lasix as necessary and thus will give dose today -continue abx's and f/u cx data -PRN hydralazine IVP and clonidine TTS low dose -Ongoing vascular surgery eval with pnding LE vascular procedure today Problems: Consultation Date/Type/Reason Admit Date/Time May 07, 2017 at 15:05 Initial Consult Date 05/08/17 Type of Consultation: cardiology Reason for Consultation Bradycardia Referring Provider: ABI GARCIA Exam/Review of Systems Vital Signs Vitals Vital Signs Date Time Temp Pulse Resp B/P Pulse Ox O2 Delivery O2 Flow Rate FiO2 05/23/17 12:17 63 05/23/17 11:03 98.4 19 126/60 98 05/23/17 10:38 2.0 05/23/17 07:46 Nasal Cannula Intake and Output 05/22/17 05/22/17 05/23/17 15:00 23:00 07:00 Intake Total 50 ml 350 ml 300 ml Output Total 2100 ml 400 ml Balance 50 ml -1750 ml -100 ml Exam Review of Systems: CONSTITUTIONAL: No fevers, chills. PULMONARY: No sob CARDIOVASCULAR: No chest pain/palpitations GASTROINTESTINAL: No nausea/vomiting. GENITOURINARY: No hematuria/dysuria. MUSCULOSKELETAL: No myagias/arthalgias. PSYCHIATRIC: The patient denies depression. NEUROLOGIC: lethargic Constitutional: alert Psych: no complaints ENMT: mucosa pink and moist Neck: supple Respiratory: diminished breath sounds (at bases/B) Cardiovascular: regular rate and rhythm Gastrointestinal: non-tender, soft Musculoskeletal: muscle weakness (generalized) Extremities: edema (trace/B and legs covered by dressing) Results Result Diagram: 05/22/17 0604 05/22/17 06 Medications Medications Current Medications Ondansetron HCl (Zofran Inj) 4 mg Q6H PRN IV NAUSEA AND/OR VOMITING; Start 05/07/17 at 17:30 Acetaminophen (Tylenol Supp) 650 mg Q4H PRN IN PAIN LEVEL 1-3 OR FEVER Last administered on 05/14/17 06:30; Admin Dose 650 MG; Start 05/07/17 at 17:30 Morphine Sulfate (morphine) 2 mg Q4H PRN IV PAIN LEVEL 7-10 Last administered on 05/23/17 12:45; Admin Dose 2 MG; Start 05/07/17 at 17:30 Enoxaparin Sodium (Lovenox) 30 mg DAILY SC Last administered on 05/23/17 08: 26; Admin Dose 30 MG; Start 05/08/17 at 09:00; Status Future hold Miscellaneous Information (* Miscellaneous Pharmacy Order) PATIENT'S OWN MEDICATI... DAILY XX ; Start 05/09/17 at 09:00 Levothyroxine Sodium (Synthroid) 137 mcg DAILY@06 NGT Last administered on 05:39; Admin Dose 137 MCG; Start 05/09/17 at 06:00 Allopurinol (Zyloprim) 100 mg DAILY PO Last administered on 05/23/17 08:17; Admin Dose 100 MG; Start 05/08/17 at 18:00 IV Flush (NS 10 ml) 10 ml PRN PRN IV IV PROTOCOL; Start 05/08/17 at 17:30 Lansoprazole (Prevacid) 30 mg DAILY@06 NGT Last administered on 05/23/17 05: 39; Admin Dose 30 MG; Start 05/12/17 at 06:00 Collagenase (Santyl) 1 applic DAILY TOP Last administered on 05/23/17 08:19; Admin Dose 1 APPLIC; Start 05/13/17 at 09:00 Nystatin (Nystatin Powder) 1 applic BID TOP Last administered on 05/23/17 08: 27; Admin Dose 1 APPLIC; Start 05/12/17 at 21:00 Aspirin (Aspirin) 81 mg DAILY PO Last administered on 05/23/17 08:18; Admin Dose 81 MG; Start 05/13/17 at 09:00 Carbidopa/Levodopa (Sinemet (25/ 100)) 1 tab TID PO Last administered on 12:21; Admin Dose 1 TAB; Start 05/13/17 at 09:00 Hydralazine HCl (Apresoline) 10 mg Q4H PRN IV SBP>170; Start 05/15/17 at 13:30 Doxycycline Hyclate (Vibramycin) 100 mg BID PO Last administered on 05/23/17 08:17; Admin Dose 100 MG; Start 05/17/17 at 12:00; Stop 05/24/17 at 11:59 Ketoconazole (Nizoral Cr) 1 applic DAILY TOP Last administered on 05/23/17 08 :19; Admin Dose 1 APPLIC; Start 05/18/17 at 09:00 Collagenase (Santyl) 1 applic DAILY TOP Last administered on 05/20/17 09:00; Admin Dose 1 APPLIC; Start 05/17/17 at 14:00 Potassium Chloride 20 meq 20 meq BID PO Last administered on 05/23/17 08:18; Admin Dose 20 MEQ; Start 05/19/17 at 10:00 Ampicillin (Ampicillin 1 Gm/ NS (Pmx)) 50 ml @ 100 mls/hr Q6 IVPB Last administered on 05/23/17 12:20; Admin Dose 100 MLS/HR; Start 05/19/17 at 18: 00 Senna (Senokot) 2 tab DAILY PRN PO CONSTIPATION Last administered on 03:41; Admin Dose 2 TAB; Start 05/21/17 at 18:30 Docusate Sodium (Colace) 200 mg BID PO Last administered on 05/23/17 08:18; Admin Dose 200 MG; Start 05/22/17 at 21:00 RON TORRES May 23, 2017 13:04
--- NOTE | 2017-05-23 15:04 | PN ---
Date/Time of Note Date/Time of Note DATE: 05/23/17 TIME: 15:02 Assessment/Plan VTE Prophylaxis VTE Prophylaxis Intervention: SCD's Lines/Catheters IV Catheter Type (from Nrs): Saline Lock Urinary Cath still in place: Yes Reason Cath still needed: urinary retention Assessment/Plan Chief Complaint/Hosp Course No change in patient's condition. DC to [facility] when bed is available Assessment/Plan - Acute encephalopathy toxic metabolic, resolving. - Possible encephalitis, unable to undergo LP due to hypoxia when lying flat, continue abx per ID. Dr. Forrest is following in neurology consultation. - Bilateral lower extremity cellulitis with wounds. Continue to biotics per ID. Dr. Stephens is following in infectious disease consultation. Dr Thomas is following in podiatry consultation. Dr. Munoz is following patient in vascular surgery consultation. Arterial Doppler with no significant stenosis but inflow disease noted. - Polymicrobial urinary tract infection, status post treatment - Left cephalic vein thrombosis, continue Lovenox. - Acute kidney injury, resolving. Dr. Cordoba is following in nephrology consultation. Continue IV fluids. Monitor electrolytes. - Acute respiratory insufficiency. Continue breathing treatment and oxygen supplementation. - Chronic obstructive pulmonary disease. - History of hypothyroidism. Continue levothyroxine. - History of peripheral vascular disease with history of vascular interventions. - History of Parkinson disease. Continue Sinemet. - History of osteoarthritis. - History of hyperlipidemia. Further recommendations based on clinical course. Plan of care discussed with Dr. Bonilla. Problems: Exam/Review of Systems Vital Signs Vitals Vital Signs Date Time Temp Pulse Resp B/P Pulse Ox O2 Delivery O2 Flow Rate FiO2 05/23/17 12:17 63 05/23/17 11:03 98.4 19 126/60 98 05/23/17 10:38 2.0 05/23/17 07:46 Nasal Cannula Intake and Output 05/22/17 05/22/17 05/23/17 15:00 23:00 07:00 Intake Total 50 ml 350 ml 300 ml Output Total 2100 ml 400 ml Balance 50 ml -1750 ml -100 ml Exam Constitutional: alert, frail Head: normocephalic Neck: supple Respiratory: diminished breath sounds Cardiovascular: nl pulses Gastrointestinal: non-tender, soft Extremities: edema, other (Erythema improved) Neurological: confused Results Result Diagram: 05/22/17 0604 05/22/17 0604 Medications Medications Current Medications Ondansetron HCl (Zofran Inj) 4 mg Q6H PRN IV NAUSEA AND/OR VOMITING; Start 05/07/17 at 17:30 Acetaminophen (Tylenol Supp) 650 mg Q4H PRN [place] PAIN LEVEL 1-3 OR FEVER Last administered on 05/14/17 06:30; Admin Dose 650 MG; Start 05/07/17 at 17:30 Morphine Sulfate (morphine) 2 mg Q4H PRN IV PAIN LEVEL 7-10 Last administered on 05/23/17 12:45; Admin Dose 2 MG; Start 05/07/17 at 17:30 Enoxaparin Sodium (Lovenox) 30 mg DAILY SC Last administered on 05/23/17 08: 26; Admin Dose 30 MG; Start 05/08/17 at 09:00; Status Future hold Miscellaneous Information (* Miscellaneous Pharmacy Order) PATIENT'S OWN MEDICATI... DAILY XX ; Start 05/09/17 at 09:00 Levothyroxine Sodium (Synthroid) 137 mcg DAILY@06 NGT Last administered on 05:39; Admin Dose 137 MCG; Start 05/09/17 at 06:00 Allopurinol (Zyloprim) 100 mg DAILY PO Last administered on 05/23/17 08:17; Admin Dose 100 MG; Start 05/08/17 at 18:00 IV Flush (NS 10 ml) 10 ml PRN PRN IV IV PROTOCOL; Start 05/08/17 at 17:30 Lansoprazole (Prevacid) 30 mg DAILY@06 NGT Last administered on 05/23/17 05: 39; Admin Dose 30 MG; Start 05/12/17 at 06:00 Collagenase (Santyl) 1 applic DAILY TOP Last administered on 05/23/17 08:19; Admin Dose 1 APPLIC; Start 05/13/17 at 09:00 Nystatin (Nystatin Powder) 1 applic BID TOP Last administered on 05/23/17 08: 27; Admin Dose 1 APPLIC; Start 05/12/17 at 21:00 Aspirin (Aspirin) 81 mg DAILY PO Last administered on 05/23/17 08:18; Admin Dose 81 MG; Start 05/13/17 at 09:00 Carbidopa/Levodopa (Sinemet (25/ 100)) 1 tab TID PO Last administered on 12:21; Admin Dose 1 TAB; Start 05/13/17 at 09:00 Hydralazine HCl (Apresoline) 10 mg Q4H PRN IV SBP>170; Start 05/15/17 at 13:30 Doxycycline Hyclate (Vibramycin) 100 mg BID PO Last administered on 05/23/17 08:17; Admin Dose 100 MG; Start 05/17/17 at 12:00; Stop 05/24/17 at 11:59 Ketoconazole (Nizoral Cr) 1 applic DAILY TOP Last administered on 05/23/17 08 :19; Admin Dose 1 APPLIC; Start 05/18/17 at 09:00 Collagenase (Santyl) 1 applic DAILY TOP Last administered on 05/20/17 09:00; Admin Dose 1 APPLIC; Start 05/17/17 at 14:00 Potassium Chloride 20 meq 20 meq BID PO Last administered on 05/23/17 08:18; Admin Dose 20 MEQ; Start 05/19/17 at 10:00 Ampicillin (Ampicillin 1 Gm/ NS (Pmx)) 50 ml @ 100 mls/hr Q6 IVPB Last administered on 05/23/17 12:20; Admin Dose 100 MLS/HR; Start 05/19/17 at 18: 00 Senna (Senokot) 2 tab DAILY PRN PO CONSTIPATION Last administered on 03:41; Admin Dose 2 TAB; Start 05/21/17 at 18:30 Docusate Sodium (Colace) 200 mg BID PO Last administered on 05/23/17 08:18; Admin Dose 200 MG; Start 05/22/17 at 21:00 ABI GARCIA May 23, 2017 15:04
--- NOTE | 2017-05-23 15:56 | PN ---
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 Would recommend for the patient to be offloaded off her heels with heel protector boots. -Upon her noninvasive vascular studies she has extensive infrainguinal atherosclerotic disease -Appreciate podiatry colleagues evaluation and continue with local wound care. -Optimize vascular status (BP meds, diet, nutrition, exercise, sugar control, antiplatelets). -Discussed findings, plan and management with the patient, she understands her current status as the patient has become nonambulatory and has become bedridden and this will essentially limit some of our intervention from a vascular surgery standpoint. Will plan to discuss her ultrasound findings with multidisciplinary team and family and determine for possible angiography if needed. -Discussed findings, plan and management with the patient, she understands. -Thank you for allowing us to partake in the care of your patient. Please call with any questions. Problems: Subjective 24 Hr Interval Summary no new vascular events overnight Exam/Review of Systems Vital Signs Vitals Vital Signs Date Time Temp Pulse Resp B/P Pulse Ox O2 Delivery O2 Flow Rate FiO2 05/23/17 15:16 97.5 64 20 132/62 95 05/23/17 10:38 2.0 05/23/17 07:46 Nasal Cannula Intake and Output 05/22/17 05/22/17 05/23/17 15:00 23:00 07:00 Intake Total 50 ml 350 ml 300 ml Output Total 2100 ml 400 ml Balance 50 ml -1750 ml -100 ml Exam Free Text/Dictation GENERAL: Awake and able to answer some simple questions. PULMONARY: Clear to auscultation bilaterally. CARDIOVASCULAR: S1, S2 present. ABDOMEN: Soft, nontender, nondistended. Bowel sounds positive. Truncal obesity. EXTREMITIES: -Right lower extremity: palpable femoral pulse, nonpalpable pedal pulse. Motor and sensory limited as the patient is not very ambulatory and has a contracture of her knee 15 to 20 degrees. Ulcers of heel and rowe. -Left lower extremity, palpable femoral pulse, nonpalpable pedal pulse. Motor and sensory limited as the patient is nonambulatory with a knee contracture about 20 degrees,heel ulcer and rowe ulcer Results Result Diagram: 05/22/17 0604 05/22/17 0604 CEZAR PÉREZ MD May 23, 2017 15:56
--- NOTE | 2017-05-23 18:44 | CONS ---
Date/Time of Note Date/Time of Note DATE: 05/23/17 TIME: 18:43 Assessment/Plan Assessment/Plan Additional Assessment/Plan 1. Severe symptomatic bradycardia- improved 2. GUY on possible CKD due to Prerenal azotemia 3. Possible CKD 4. Acute hyperkalemia due to GUY 5.AMs due to acute metabolic encephalopathy and bradycardia 6. H.o CHF 7. H/o HTN 8. h/o hypothyroidism 9/ H/o parkinsonism 10. Hyperuricemia without gout 11. Bilateral foot ulcerations Plan: Cr and electrolytes normal today podiatry following for bilateral foot ulcerations. On allopurinol 100mg po daily for hyperuricemia. Renal US showed normal right kidney, left kidney not seen will continue to follow up Consultation Date/Type/Reason Admit Date/Time May 07, 2017 at 15:05 Initial Consult Date 05/08/17 Type of Consultation: NEPHROLOGY Referring Provider: ABI GARCIA Exam/Review of Systems Vital Signs Vitals Vital Signs Date Time Temp Pulse Resp B/P Pulse Ox O2 Delivery O2 Flow Rate FiO2 05/23/17 16:25 59 05/23/17 15:16 97.5 20 132/62 95 05/23/17 10:38 2.0 05/23/17 07:46 Nasal Cannula Intake and Output 05/22/17 05/22/17 05/23/17 15:00 23:00 07:00 Intake Total 50 ml 350 ml 300 ml Output Total 2100 ml 400 ml Balance 50 ml -1750 ml -100 ml Results Result Diagram: 05/22/17 0604 05/22/17 0604 Medications Medications Current Medications Ondansetron HCl (Zofran Inj) 4 mg Q6H PRN IV NAUSEA AND/OR VOMITING; Start 05/07/17 at 17:30 Acetaminophen (Tylenol Supp) 650 mg Q4H PRN GA PAIN LEVEL 1-3 OR FEVER Last administered on 05/14/17 06:30; Admin Dose 650 MG; Start 05/07/17 at 17:30 Morphine Sulfate (morphine) 2 mg Q4H PRN IV PAIN LEVEL 7-10 Last administered on 05/23/17 12:45; Admin Dose 2 MG; Start 05/07/17 at 17:30 Enoxaparin Sodium (Lovenox) 30 mg DAILY SC Last administered on 05/23/17 08: 26; Admin Dose 30 MG; Start 05/08/17 at 09:00; Status Future hold Miscellaneous Information (* Miscellaneous Pharmacy Order) PATIENT'S OWN MEDICATI... DAILY XX ; Start 05/09/17 at 09:00 Levothyroxine Sodium (Synthroid) 137 mcg DAILY@06 NGT Last administered on 05:39; Admin Dose 137 MCG; Start 05/09/17 at 06:00 Allopurinol (Zyloprim) 100 mg DAILY PO Last administered on 05/23/17 08:17; Admin Dose 100 MG; Start 05/08/17 at 18:00 IV Flush (NS 10 ml) 10 ml PRN PRN IV IV PROTOCOL; Start 05/08/17 at 17:30 Lansoprazole (Prevacid) 30 mg DAILY@06 NGT Last administered on 05/23/17 05: 39; Admin Dose 30 MG; Start 05/12/17 at 06:00 Collagenase (Santyl) 1 applic DAILY TOP Last administered on 05/23/17 08:19; Admin Dose 1 APPLIC; Start 05/13/17 at 09:00 Nystatin (Nystatin Powder) 1 applic BID TOP Last administered on 05/23/17 08: 27; Admin Dose 1 APPLIC; Start 05/12/17 at 21:00 Aspirin (Aspirin) 81 mg DAILY PO Last administered on 05/23/17 08:18; Admin Dose 81 MG; Start 05/13/17 at 09:00 Carbidopa/Levodopa (Sinemet (25/ 100)) 1 tab TID PO Last administered on 12:21; Admin Dose 1 TAB; Start 05/13/17 at 09:00 Hydralazine HCl (Apresoline) 10 mg Q4H PRN IV SBP>170; Start 05/15/17 at 13:30 Doxycycline Hyclate (Vibramycin) 100 mg BID PO Last administered on 05/23/17 08:17; Admin Dose 100 MG; Start 05/17/17 at 12:00; Stop 05/24/17 at 11:59 Ketoconazole (Nizoral Cr) 1 applic DAILY TOP Last administered on 05/23/17 08 :19; Admin Dose 1 APPLIC; Start 05/18/17 at 09:00 Collagenase (Santyl) 1 applic DAILY TOP Last administered on 05/20/17 09:00; Admin Dose 1 APPLIC; Start 05/17/17 at 14:00 Potassium Chloride 20 meq 20 meq BID PO Last administered on 05/23/17 08:18; Admin Dose 20 MEQ; Start 05/19/17 at 10:00 Ampicillin (Ampicillin 1 Gm/ NS (Pmx)) 50 ml @ 100 mls/hr Q6 IVPB Last administered on 05/23/17 17:51; Admin Dose 100 MLS/HR; Start 05/19/17 at 18: 00 Senna (Senokot) 2 tab DAILY PRN PO CONSTIPATION Last administered on 03:41; Admin Dose 2 TAB; Start 05/21/17 at 18:30 Docusate Sodium (Colace) 200 mg BID PO Last administered on 05/23/17 08:18; Admin Dose 200 MG; Start 05/22/17 at 21:00 ENRIQUETA HUNG MD May 23, 2017 18:44
== END 2017-05-23 18:45 | disposition short-term general hospital (02) | DRG 308 ==
LOC: E/R 13:15 → ICU 15:05 → TEL 05-12 02:23
PROVIDERS: ADMIT Internal Medicine; ATTEND Internal Medicine
PROC: 02HV33Z Insertion of Infusion Device into Superior Vena Cava, Percutaneous Approach (ICD-10-PCS; principal; 2017-05-08)
DX: R00.1 Bradycardia, unspecified (principal); G92 Toxic encephalopathy; N17.9 Acute kidney failure, unspecified; E87.2 Acidosis; D69.6 Thrombocytopenia, unspecified; G20 Parkinson's disease; I95.9 Hypotension, unspecified; L03.115 Cellulitis of right lower limb; I82.612 Acute embolism and thrombosis of superficial veins of left upper extremity; N39.0 Urinary tract infection, site not specified; L03.116 Cellulitis of left lower limb; Z68.42 Body mass index [BMI] 45.0-49.9, adult; E87.5 Hyperkalemia; J44.9 Chronic obstructive pulmonary disease, unspecified; L89.621 Pressure ulcer of left heel, stage 1; L89.611 Pressure ulcer of right heel, stage 1; R13.0 Aphagia; I45.10 Unspecified right bundle-branch block; I87.8 Other specified disorders of veins; I73.9 Peripheral vascular disease, unspecified; I70.234 Atherosclerosis of native arteries of right leg with ulceration of heel and midfoot; I12.9 Hypertensive chronic kidney disease with stage 1 through stage 4 chronic kidney disease, or unspecified chronic kidney disease; D64.9 Anemia, unspecified; E66.9 Obesity, unspecified; F02.80 Dementia in other diseases classified elsewhere, unspecified severity, without behavioral disturbance, psychotic disturbance, mood disturbance, and anxiety; E79.0 Hyperuricemia without signs of inflammatory arthritis and tophaceous disease; N18.9 Chronic kidney disease, unspecified; R47.81 Slurred speech; R53.1 Weakness; B35.1 Tinea unguium; R60.0 Localized edema
CPT/HCPCS: 36415; 36569; 36600; 70450; 70544; 70549; 70553; 71010; 76775; 76937; 80048; 80053; 80202; 81001; 81003; 82533; 82550; 82553; 82565; 82570; 82803; 82962; 83605; 83735; 83880; 84100; 84132; 84145; 84300; 84439; 84443; 84484; 84520; 84560; 85025; 85610; 86692; 86788; 86789; 87040; 87070; 87081; 87086; 89190; 90686; 92526; 92610; 93005; 93306; 93922; 93970; 94640; 94664; 96374; 96375; J1940; C1769; C9113; J1265; J1650; J1815; J1956; J2270; J2405; J3370; J3480; J7040; J7042; J7050; J7070; P9047; P9612

== ENCOUNTER 2017-09-19 17:49 | Inpatient (IN) | END 2017-10-24 19:20 | disposition home health service (06) | DRG 870 ==

== ENCOUNTER 2018-01-07 18:07 | Inpatient (IN) | END 2018-01-22 19:45 | disposition home health service (06) | DRG 871 ==

== ENCOUNTER 2019-03-02 11:55 | Inpatient (IN) | payer BC, MEDICARE ==
[2019-03-02] VITALS (16 sets, daily range): BP systolic 87–155; BP diastolic 37–128; PULSE 42–64; RESP 13–22; Ht 157.5 cm; Wt 81.9 kg
[~2019-03-02] VITALS: Ht 157.5 cm; Wt 81.9 kg
[~2019-03-02 11:55] MED LIST changes: +ASC500 PO; +CARB1TAB2 PO; +DICL100G37 TOP; +DOCU-216 PO; +FER325 PO; +FURO40TA4 PO; -HYDR-3025 PO; +HYDR-3601 PO; +HYDR-4011 PO; +LEVO150T7 PO; -LEVOTHYROXINE PO; +MEGE40TA PO; +MULT-876 PO; -NAPR-685 PO; +POTA-57 PO; +SAN30GM TOP; +SENN-120 PO; -VITAMIN B12; -VITAMIN D3
[2019-03-02] MEDS ORDERED: SOD CHLORIDE 0.9% 1,000 ML IV STA (12:19)
--- NOTE | 2019-03-02 12:24 | ERD ---
ER Documentation Chief Complaint Chief Complaint Diarrhea, low blood pressure HPI History is taken from the patient's previous medical records as the caregiver is unaware of her medical problems. This is a 77-year-old female with chronic diastolic congestive heart failure, COPD, hyperlipidemia, hypothyroidism, chronic kidney disease, peripheral vascular disease with bilateral lower extremity wounds, Parkinson's disease brought in by ambulance from home due to low blood pressure with a systolic blood pressure in the 80s this morning. Patient has had diarrhea since yesterday. Currently she has no complaints, but her history is limited due to likely dementia. Caregiver does not know her CODE STATUS or her medical problems. ROS Unable to obtain as the patient unable to provide Medications Home Meds Reported Medications Diclofenac Sodium* (Voltaren* Gel) 1% -100 Gm Gel, 2 GM TOP BID PRN for PAIN, #1 TUB 03/02/19 Carbidopa/Levodopa (Sinemet 25-100 mg Tablet) 1 Each Tablet, 1 EACH PO TID, TAB 03/02/19 Furosemide* (Furosemide*) 40 Mg Tablet, 60 MG PO DAILY, TAB 03/02/19 Hydrocodone/Acetaminophen (Kenesaw 5-325 Tablet) 1 Each Tablet, 1 EACH PO Q12H PRN for PRN, TAB 03/02/19 Levothyroxine Sodium* (Levothyroxine Sodium*) 150 Mcg Tablet, 150 MCG PO BEFORE BREAKFAST, #30 TAB 03/02/19 Discontinued Scripts Collagenase* (Santyl*) 30 Gm Oint..gm., 1 APPLIC TOP DAILY for 30 Days Prov:RADJEMAL HENRIQUEZETLANA 01/22/18 Megestrol Acetate* (Megace*) 40 Mg Tab, 40 MG PO DAILY for 30 Days, TAB Prov:RADCHENJEMAL DURANTABI 01/22/18 Levothyroxine Sodium* (Levothyroxine Sodium*) 150 Mcg Tablet, 150 MCG PO BEFORE BREAKFAST for 30 Days, TAB Prov:RADCHENKOJEMALABI 01/22/18 Sennosides* (Senna Lax*) 8.6 Mg Tablet, 2 TAB PO BID PRN for CONSTIPATION, #30 TAB Prov:RADJEMAL HENRIQUEZETLANA 01/22/18 Docusate Sodium (Dok) 100 Mg Capsule, 100 MG PO Q12H for 30 Days, CAP Prov:RADSOFYAKOLAMARABI 01/22/18 Potassium Chloride* (Klor-Con*) 20 Meq Tabsr, 20 MEQ PO DAILY for 30 Days, TAB Prov:KEN GARCIAA 01/22/18 Furosemide* (Furosemide*) 40 Mg Tablet, 40 MG PO DAILY for 30 Days, TAB Prov:KEN GARCIAA 01/22/18 Hydrocodone Bit-Acetaminophen (Hydrocodone Bit-APAP) 5-325MG Tablet, 1 TAB PO Q6H PRN for MODERATE PAIN LEVEL 4-6, #30 TAB Prov:JOSEABI 01/22/18 Ascorbic Acid (Vitamin C) 500 Mg Tab, 500 MG PO DAILY for 30 Days, TAB Prov:JOSEABI 01/22/18 Carbidopa/Levodopa (Sinemet 25-100 mg Tablet) 1 Each Tablet, 1 EACH PO TID for 30 Days, TAB Prov:JOSEABI 01/22/18 Multivit-Min/Iron Fum/Folic AC (Tisow-Nzpajqy-Aetdbvlw Tablet) 1 Each Tablet, 1 EACH PO DAILY for 30 Days, TAB Prov:JOSEABI 01/22/18 Ferrous Sulfate* (Ferrous Sulfate*) 325 Mg Tabec, 325 MG PO DAILY for 30 Days, TAB Prov:KEN GARCIAA 01/22/18 Allergies Allergies: Coded Allergies: No Known Allergy (Unverified , 03/02/19) PMhx/Soc Medical and Surgical Hx: Unable to obtain History of Surgery: Yes (BILATERAL CATARACT SX, BELLY BUTTON SX, TONSILLECTOMY ) Anesthesia Reaction: No Hx Neurological Disorder: Yes (MILD PARKINSON'S) Hx Respiratory Disorders: No Hx Cardiac Disorders: No Hx Psychiatric Problems: No Hx Miscellaneous Medical Probl: Yes (pls see EMR) Hx Alcohol Use: No Hx Substance Use: No Hx Tobacco Use: No FmHx Unable to obtain Physical Exam Vitals Vital Signs Date Temp Pulse Resp B/P (MAP) Pulse Ox O2 O2 Flow FiO2 Time Delivery Rate 03/02/19 Nasal 2.0 12:38 Cannula 03/02/19 97.7 41 16 89/55 (66) 99 12:22 Physical Exam Const: No acute distress Head: Atraumatic Eyes: Normal Conjunctiva ENT: Dry mucous membranes. Normal External Ears, Nose and Mouth. Neck: Full range of motion. No meningismus. Resp: Clear to auscultation bilaterally Cardio: Distant heart sounds, bradycardic with regular rhythm. No murmurs. Abd: Soft, non tender, non distended. Normal bowel sounds Skin: No petechiae or rashes Back: No midline or flank tenderness Ext: No cyanosis, bilateral lower extremity 3+ edema with erythema up to the upper shins. Skin breakdown with leaking of clear fluid. Neur: Awake and alert, slowed speech, moving all extremities spontaneously. Oriented to self and place only. Psych: Normal Mood and Affect Result Diagram: 03/02/19 1239 03/02/19 1239 Results 24 hrs Laboratory Tests Test 03/02/19 12:17 03/02/19 12:39 03/02/19 14:01 03/02/19 14:16 POC Venous 0.9 mmol/L Lactate White Blood 8.7 10^3/ul Count Red Blood Count 4.35 10^6/ul Hemoglobin 13.1 g/dl Hematocrit 41.9 % Mean Corpuscular 96.3 fl Volume Mean Corpuscular 30.1 pg Hemoglobin Mean Corpuscular 31.3 g/dl Hemoglobin Mirelal nt Red Cell 16.8 % Distribution Width Platelet Count 119 10^3/UL Mean Platelet 11.2 fl Volume Immature 1.500 % Granulocytes % Neutrophils % % Segmented 60 % Neutrophils % (Manual) Band Neutrophils 22 % % (Manual) Lymphocytes % % Lymphocytes % 8 % (Manual) Monocytes % % Monocytes % 8 % (Manual) Eosinophils % % Basophils % % Basophils % 1 % (Manual) Promyelocytes % 1 % (Manual) Nucleated Red 3 % Blood Cells % Immature 0.130 10^3/ul Granulocytes # Neutrophils # 10^3/ul Neutrophils # 5.4 10^3/ul (Manual) Band Neutrophils 1.9 10^3/ul # Lymphocytes 0.6 10^3/ul (Manual) Lymphocytes # 10^3/ul Monocytes # 10^3/ul Monocytes # 0.6 10^3/ul (Manual) Eosinophils # 10^3/ul Basophils # 10^3/ul Basophils # 0.0 10^3/ul (Manual) Promyelocytes # 0.0 10^3/ul Nucleated Red 10^3/ul Blood Cells # Platelet DECREASED Estimate Poikilocytosis 3+ Anisocytosis 1+ Microcytosis 1+ Macrocytosis 1+ Tear Drop Cells 1+ Prothrombin Time 13.2 Sec Prothrombin Time 1.0 Ratio INR 0.99 International Normalized Ratio Activated 51.0 Sec Partial Thrombop last Time Sodium Level 142 mmol/L Potassium Level 7.3 mmol/L Chloride Level 116 mmol/L Carbon Dioxide 12 mmol/L Level Anion Gap 14 Blood Urea 168 mg/dl Nitrogen Creatinine 3.20 mg/dl Est Glomerular mL/min Filtrat Rate mL/min Glucose Level 87 mg/dl Calcium Level 9.0 mg/dl Total Bilirubin 0.3 mg/dl Direct Bilirubin 0.00 mg/dl Indirect 0.3 mg/dl Bilirubin Aspartate Amino 114 IU/L Transf (AST/SGOT ) Alanine 27 IU/L Aminotransferase (ALT/SGPT) Alkaline 396 IU/L Phosphatase Troponin I < 0.012 ng/ml Total Protein 7.6 g/dl Albumin 3.9 g/dl Globulin 3.70 g/dl Albumin/Globulin 1.05 Ratio Lipase 1316 U/L Bedside Glucose 99 mg/dL Blood Gas Blood venous Specimen Source Arterial Blood 03/02/2019 2:19:3 Date Drawn 4 PM Arterial Blood OTHER Gas Puncture Site Jewel Test N/A Venous Blood pH 7.090 Venous Blood 44.2 mmHG pCO2 (Temp Corrected) Venous Blood pO2 30.6 mmHG (Temp Corrected) Venous Blood 13.1 mmol/L HCO3 Venous Blood 60.4 mmHG Oxygen Saturation Venous Blood -16.2 mmol/L Base Excess Venous Blood 12.6 g/dl Total Hemoglobin Venous Blood 59.6 % Oxyhemoglobin Venous Blood 0.3 % Methemoglobin Blood Gas A-a O2 66.2 mmHg Differential Carboxyhemoglobi 1.0 % n Blood Gas 37.0 C Temperature Blood Gas NASAL CANNULA Modality FiO2 21.0 % Blood Gas ADOLFO Cruz Critical Value Read Back Blood Gas MDA Notified Whom Blood Gas 03/02/2019 2:22:3 Notified Time 3 PM Current Medications Medications Dose Sig/Benjamin Start Time Status Last (Trade) Ordered Route PRN Stop Time Admin Dose Reason Admin Sodium 1,000 ml @ Q1H STAT 03/02/19 DC 03/02/19 Chloride 1,000 mls/hr IV 12:19 12:35 03/02/19 13:18 Sodium 30 gm ONCE STAT 03/02/19 DC Polystyrene PO 13:35 Sulfonate 7/30/19 13:37 (Kayexelate 15 Gm Kit (Powder+Sorbi pablo)) Sodium 50 ml ONCE STAT 03/02/19 DC 03/02/19 Bicarbonate IV 13:35 14:03 (Na Bicarb 03/02/19 13:37 8.4% Syg) Calcium 1,000 mg ONCE STAT 03/02/19 DC 03/02/19 Chloride IV 13:35 14:03 (Ca Chloride 03/02/19 13:37 10% Syg) Insulin 10 unit ONCE STAT 03/02/19 DC 03/02/19 Human IVP 13:35 14:04 Regular 03/02/19 13:37 (Humulin R) Dextrose ONCE PRN 03/02/19 (D50w IV DECREASED 14:00 Syringe) GLUCOSE Dextrose 50 ml ONCE ONCE 03/02/19 DC 03/02/19 (D50w IV 14:00 14:02 Syringe) 03/02/19 14:01 Ondansetron 4 mg Q6H PRN 03/02/19 HCl (Zofran IV NAUSEA 14:00 Inj) AND/OR VOMITING 650 mg Q6H PRN 03/02/19 Acetaminophen PO PAIN 14:00 (Tylenol LEVEL 1-3 OR Liquid) FEVER Morphine 2 mg Q4H PRN 03/02/19 Sulfate IV PAIN 14:00 (morphine) LEVEL 7-10 Famotidine 20 mg DAILY IV 03/02/19 (Pepcid Iv) 14:30 Enoxaparin 30 mg DAILY SC 03/03/19 Sodium 09:00 (Lovenox) Procedures/MDM EMERGENT LABS AND DIAGNOSTIC STUDIES: Lab Results above were reviewed and interpreted by me. CBC: Thrombocytopenia, new onset, unclear etiology. No anemia or evidence of infection CMP: Elevated BUN and creatinine, consistent with acute renal failure with acidosis and hyperkalemia at 7.3. Alk phos elevated. Lipase: Increased, concerning for pancreatitis Troponin within normal limits, not indicative of cardiac ischemia Lactate within normal limits without evidence of sepsis or tissue hypoperfusion UA: Pending ABG shows evidence of acidemia, metabolic 12-lead EKG was interpreted by Stefany Turner MD: Sinus bradycardia with ventricular rate of 41 beats per minute first-degree AV block sinus bradycardia Left axis deviation with intraventricular conduction delay No acute ST or T wave changes suggestive of acute ischemia or STEMI. Repeat EKG: Rate/Rhythm: Sinus bradycardia at 41 bpm with first-degree AV block QRS, ST, T-waves: Left axis deviation, intraventricular conduction delay Impression: Marked sinus bradycardia, no ischemic changes Radiology Results as interpreted by Radiology below were reviewed by Matthew Turner MD: Chest x-ray shows no acute abnormalities Ultrasound abdomen: Pending Initial Nursing notes reviewed. Previous Medical Records requested via the Electronic Health Record. EMERGENCY DEPARTMENT COURSE / MEDICAL DECISION MAKING: Patient presents with generalized weakness, hypotension, and bradycardia with symptoms of diarrhea. Here she was bradycardic but not with a normal blood pressure. She was started on IV fluids. I reviewed her medical records from her past admission and it seems like at that time she did have hyperkalemia. Th at is highest on my differential at this time given her EKG changes. There is no evidence of ischemia. Labs did show evidence of acute renal failure with hyperkalemia. She was treated with insulin, dextrose, Kayexalate, calcium and bicarb. She was also noted to have an elevated lipase, for which an ultrasound of the gallbladder was ordered. Suspect pancreatitis. She also has evidence of a UTI, for which antibiotics were ordered. Patient will require admission to the ICU for stabilization and further management. Critical Care Time: 45 minutes Treatments/Evaluations: Close monitoring and treatment of unstable vital signs, cardiorespiratory, and neurologic status, while maintaining tight balance of fluid, respiratory, and cardiac interventions. This time includes discussing the case with the patient and the patients family. This time does not include all procedures stated elsewhere in this record. This time also includes reviewing old records, labs and radiological studies. This time includes examining and re- examining the patient. Additionally, this time also includes arranging care with admitting and consulting physicians. Accepting Care Team: Current data and ongoing care discussed. Time: Time of admission Primary Provider: Dr. Serra, on-call for Dr. Bonilla Consulting: Dr. Guerrero [place] notified Outstanding Data: Ultrasound gallbladder/right upper quadrant Departure Diagnosis: Primary Impression: Symptomatic bradycardia Additional Impressions: Hyperkalemia Acute renal failure Acute renal failure type: unspecified Qualified Codes: N17.9 - Acute kidney failure, unspecified Pancreatitis Chronicity: acute Pancreatitis type: unspecified pancreatitis type Acute pancreatitis complication: unspecified Qualified Codes: K85.90 - Acute pancreatitis without necrosis or infection, unspecified Dehydration Thrombocytopenia UTI (urinary tract infection) Urinary tract infection type: site unspecified Hematuria presence: without hematuria Qualified Codes: N39.0 - Urinary tract infection, site not specified Condition: Critical LISA TURNER MD Mar 02, 2019 12:24
[2019-03-02] MEDS ORDERED: SODIUM POLYSTYRENE 15 GM KIT (POWDER + SORBITOL) PO STA (13:35)
[2019-03-02] MEDS ORDERED: INSULIN REGULAR, HUMAN 100 UNIT/1 ML 3ML VIAL IVP STA (13:35)
[2019-03-02] MEDS ORDERED: CA CHLORIDE 10% 10 ML SYRINGE IV STA (13:35)
[2019-03-02] MEDS ORDERED: NA BICARBONATE 8.4% 50 ML SYG IV STA (13:35)
[2019-03-02] MEDS ORDERED: ONDANSETRON 4 MG INJ IV PRN (14:00)
[2019-03-02] MEDS ORDERED: DEXTROSE 50% 50 ML SYRINGE IV PRN (14:00)
[2019-03-02] MEDS ORDERED: DEXTROSE 50% 50 ML SYRINGE IV ONE (14:00)
[2019-03-02] MEDS ORDERED: PIPER-TAZO 3.375 GM IV (PMX) 100 ML IVPB ONE (15:00)
[2019-03-02] MEDS: FAMOTIDINE 20 MG INJ IV SCH (15:33)
[2019-03-02] MEDS ORDERED: SOD CHLORIDE 0.9% 1,000 ML IV SCH (16:00)
--- NOTE | 2019-03-02 16:00 | CONS ---
Assessment/Plan Assessment/Plan Assessment/Plan (Daily) 1. acute hyperkalemia with K 7.3 on admission 2. acute kidney injury on CKD III 2/2 ischemic ATN + prerenal azotemia 3. Severe metabolic acidosis 4. septic shock on admission unclear source at this time 5. H/o COPD 6. H/o diastolic Heart failure with Preserved EF 7. H/o Hypothyroidisk 8. H/o Parkinoson's disease 9. h/o HTN Plan: Levophed gtt for BP support IV abx Meropenem and Vancomycin< renally dose all abx and monitoe electrolytes Sodium bicarbonate drip with 100MEQ Sodium bicarboante to run at 100 cc/hr s/p multiple Rx for Hyperkalemia in ED, will follow upon next chemistry at 8 pm Pulmonary consult Thanks for consultation , I will continue to follow up Consultation Date/Type/Reason Admit Date/Time 03/02/2019 Date of Consultation: Mar 02, 2019 Type of Consult NEPHROLOGY Reason for Consultation acute hyperkalemia, severe metabolic acidosis, GUY on CKD III Requesting Provider: LISA MATA MD Date/Time of Note DATE: 03/02/19 TIME: 16:00 Hx of Present Illness 77-year-old female with chronic diastolic congestive heart failure, COPD, hyperlipidemia, hypothyroidism, chronic kidney disease, peripheral vascular disease with bilateral lower extremity wounds, Parkinson's disease. pt was brought in by family to ER with c/o SOB, weakness, not eating well and failure to thrive She was noted to have acute hypoxemic resp failure, Hyperkalemia with K 7.3, BUN/Cr 168/3.2, HCo3 12- She gets admitted to ICU with NRBM and Renal has been consulted for acute hyperkalemia, severe metabolic acidosis and GUY on CKD. Unable to obtain any ROS due to pt clinical condition Subjective hx not possible: pt non-verbal, pt critical status, other (Unable to obtain any ROS due to pt clinical condition ) Past Medical History Medical History: other (chronic diastolic congestive heart failure, COPD, hyperlipidemia, hypothyroidism, chronic kidney disease, peripheral vascular disease with bilateral lower extremity wounds, Parkinson's disease) Home Meds Reported Medications Diclofenac Sodium* (Voltaren* Gel) 1% -100 Gm Gel, 2 GM TOP BID PRN for PAIN, #1 TUB 03/02/19 Carbidopa/Levodopa (Sinemet 25-100 mg Tablet) 1 Each Tablet, 1 EACH PO TID, TAB 03/02/19 Furosemide* (Furosemide*) 40 Mg Tablet, 60 MG PO DAILY, TAB 03/02/19 Hydrocodone/Acetaminophen ([place] 5-325 Tablet) 1 Each Tablet, 1 EACH PO Q12H PRN for PRN, TAB 03/02/19 Levothyroxine Sodium* (Levothyroxine Sodium*) 150 Mcg Tablet, 150 MCG PO BEFORE BREAKFAST, #30 TAB 03/02/19 Discontinued Scripts Collagenase* (Santyl*) 30 Gm Oint..gm., 1 APPLIC TOP DAILY for 30 Days Prov:ABI GARCIA 01/22/18 Megestrol Acetate* (Megace*) 40 Mg Tab, 40 MG PO DAILY for 30 Days, TAB Prov:ABI GARCIA 01/22/18 Levothyroxine Sodium* (Levothyroxine Sodium*) 150 Mcg Tablet, 150 MCG PO BEFORE BREAKFAST for 30 Days, TAB Prov:ABI GARCIA 01/22/18 Sennosides* (Senna Lax*) 8.6 Mg Tablet, 2 TAB PO BID PRN for CONSTIPATION, #30 TAB Prov:ABI GARCIA 01/22/18 Docusate Sodium (Dok) 100 Mg Capsule, 100 MG PO Q12H for 30 Days, CAP Prov:ABI GARCIA 01/22/18 Potassium Chloride* (Klor-Con*) 20 Meq Tabsr, 20 MEQ PO DAILY for 30 Days, TAB Prov:ABI GARCIA 01/22/18 Furosemide* (Furosemide*) 40 Mg Tablet, 40 MG PO DAILY for 30 Days, TAB Prov:KEN GARCIAA 01/22/18 Hydrocodone Bit-Acetaminophen (Hydrocodone Bit-APAP) 5-325MG Tablet, 1 TAB PO Q6H PRN for MODERATE PAIN LEVEL 4-6, #30 TAB Prov:ABI GARCIA 01/22/18 Ascorbic Acid (Vitamin C) 500 Mg Tab, 500 MG PO DAILY for 30 Days, TAB Prov:KEN GARCIAA 01/22/18 Carbidopa/Levodopa (Sinemet 25-100 mg Tablet) 1 Each Tablet, 1 EACH PO TID for 30 Days, TAB Prov:ABI GARCIA 01/22/18 Multivit-Min/Iron Fum/Folic AC (Erqna-Mgeskhi-Ekvvrxyj Tablet) 1 Each Tablet, 1 EACH PO DAILY for 30 Days, TAB Prov:ABI GARCIA 01/22/18 Ferrous Sulfate* (Ferrous Sulfate*) 325 Mg Tabec, 325 MG PO DAILY for 30 Days, TAB Prov:ABI GARCIA 01/22/18 Medications Current Medications Dextrose (D50w Syringe) ONCE PRN IV DECREASED GLUCOSE; Start 03/02/19 at 14:00 Ondansetron HCl (Zofran Inj) 4 mg Q6H PRN IV NAUSEA AND/OR VOMITING; Start 03/02/19 at 14:00 Acetaminophen (Tylenol Liquid) 650 mg Q6H PRN PO PAIN LEVEL 1-3 OR FEVER; Start 03/02/19 at 14:00 Morphine Sulfate (morphine) 2 mg Q4H PRN IV PAIN LEVEL 7-10; Start 03/02/19 at 14:00 Famotidine (Pepcid Iv) 20 mg DAILY IV Last administered on 03/02/19at 15:33; Admin Dose 20 MG; Start 03/02/19 at 14:30 Enoxaparin Sodium (Lovenox) 30 mg DAILY SC ; Start 03/03/19 at 09:00 Sodium Bicarbonate 100 meq/Dextrose 1,000 ml @ 100 mls/hr Q10H IV ; Start 03/02/19 at 15:30 Allergies: Coded Allergies: No Known Allergy (Unverified , 03/02/19) Past Surgical History Past Surgical Hx: other (Not available ) Family History Significant Family History: no pertinent family hx Social History Alcohol Use: none Smoking Status: Never smoker Drug Use: none Exam/Review of Systems Exam Vitals Vital Signs Date Temp Pulse Resp B/P (MAP) Pulse Ox O2 O2 Flow FiO2 Time Delivery Rate 03/02/19 97.7 40 16 67/45 (52) 99 Nasal 3.0 15:50 Cannula Constitutional: non-verbal, distress (Moderate distress on NRBM ) Head: normocephalic Neck: supple Respiratory: congested cough, crackles/rales, diminished breath sounds Cardiovascular: regular rate and rhythm, nl pulses Gastrointestinal: soft, non-tender, other (non distended, BS+) Musculoskeletal: muscle weakness, swelling (1+ edema ) Neurological: confused, lethargic, other (Uncooperative for full neuro exam ) Lymph: nl lymph nodes Results Result Diagram: 03/02/19 1239 03/02/19 1416 Results 24hrs Laboratory Tests Test 03/02/19 12:17 03/02/19 12:39 03/02/19 14:01 03/02/19 14:16 POC Venous 0.9 Lactate White Blood Count 8.7 # Red Blood Count 4.35 # Hemoglobin 13.1 # Hematocrit 41.9 # Mean Corpuscular 96.3 Volume Mean Corpuscular 30.1 Hemoglobin Mean Corpuscular 31.3 L Hemoglobin Concen t Red Cell 16.8 H Distribution Width Platelet Count 119 #L Mean Platelet 11.2 H Volume Immature 1.500 H Granulocytes % Neutrophils % Segmented 60 Neutrophils % (Manual) Band Neutrophils 22 H % (Manual) Lymphocytes % Lymphocytes % 8 L (Manual) Monocytes % Monocytes % 8 (Manual) Eosinophils % Basophils % Basophils % 1 (Manual) Promyelocytes % 1 H (Manual) Nucleated Red 3 H Blood Cells % Immature 0.130 H Granulocytes # Neutrophils # Neutrophils # 5.4 (Manual) Band Neutrophils 1.9 H # Lymphocytes 0.6 L (Manual) Lymphocytes # Monocytes # Monocytes # 0.6 (Manual) Eosinophils # Basophils # Basophils # 0.0 (Manual) Promyelocytes # 0.0 Nucleated Red Blood Cells # Platelet Estimate DECREASED Poikilocytosis 3+ Anisocytosis 1+ Microcytosis 1+ Macrocytosis 1+ Tear Drop Cells 1+ Prothrombin Time 13.2 Prothrombin Time 1.0 Ratio INR International 0.99 Normalized Ratio Activated 51.0 H Partial Thrombopl ast Time Sodium Level 142 142 Potassium Level 7.3 *H 6.9 *H Chloride Level 116 H 120 H Carbon Dioxide 12 L 12 L Level Anion Gap 14 H 10 Blood Urea 168 H 165 H Nitrogen Creatinine 3.20 H 2.98 H Est Glomerular Filtrat Rate mL/min Glucose Level 87 252 #H Calcium Level 9.0 8.1 L Total Bilirubin 0.3 Direct Bilirubin 0.00 Indirect 0.3 Bilirubin Aspartate Amino 114 H Transf (AST/SGOT) Alanine 27 Aminotransferase (ALT/SGPT) Alkaline 396 H Phosphatase Troponin I < 0.012 Total Protein 7.6 Albumin 3.9 Globulin 3.70 H Albumin/Globulin 1.05 Ratio Lipase 1316 H Bedside Glucose 99 Blood Gas Blood venous Specimen Source Arterial Blood 03/02/2019 2:19:3 Date Drawn 4 PM Arterial Blood OTHER Gas Puncture Site Jewel Test N/A Venous Blood pH 7.090 *L Venous Blood pCO2 44.2 (Temp Corrected) Venous Blood pO2 30.6 H (Temp Corrected) Venous Blood HCO3 13.1 L Venous Blood 60.4 Oxygen Saturation Venous Blood Base -16.2 L Excess Venous Blood 12.6 Total Hemoglobin Venous Blood 59.6 Oxyhemoglobin Venous Blood 0.3 Methemoglobin Blood Gas A-a O2 66.2 Differential Carboxyhemoglobin 1.0 Blood Gas 37.0 Temperature Blood Gas NASAL CANNULA Modality FiO2 21.0 Blood Gas ADOLFO Cruz Critical Value Read Back Blood Gas MDA Notified Whom Blood Gas 03/02/2019 2:22:3 Notified Time 3 PM Lactic Acid Level 1.1 Test 03/02/19 14:30 03/02/19 14:33 Bedside Glucose 194 Bedside Urine pH 5.0 (LAB) Bedside Urine 3+ H Protein (LAB) Bedside Urine Negative Glucose (UA) Bedside Urine Trace H Ketones (LAB) Bedside Urine 3+ H Blood Bedside Urine Negative Nitrite (LAB) Bedside Urine 3+ H Leukocyte Esteras e (L Medications Medication Current Medications Dextrose (D50w Syringe) ONCE PRN IV DECREASED GLUCOSE; Start 03/02/19 at 14:00 Ondansetron HCl (Zofran Inj) 4 mg Q6H PRN IV NAUSEA AND/OR VOMITING; Start 03/02/19 at 14:00 Acetaminophen (Tylenol Liquid) 650 mg Q6H PRN PO PAIN LEVEL 1-3 OR FEVER; Start 03/02/19 at 14:00 Morphine Sulfate (morphine) 2 mg Q4H PRN IV PAIN LEVEL 7-10; Start 03/02/19 at 14:00 Famotidine (Pepcid Iv) 20 mg DAILY IV Last administered on 03/02/19at 15:33; Admin Dose 20 MG; Start 03/02/19 at 14:30 Enoxaparin Sodium (Lovenox) 30 mg DAILY SC ; Start 03/03/19 at 09:00 Sodium Bicarbonate 100 meq/Dextrose 1,000 ml @ 100 mls/hr Q10H IV ; Start 03/02/19 at 15:30 ENRIQUETA HUNG MD Mar 02, 2019 16:00
[2019-03-02] MEDS: SODIUM BICARBONATE (IV ADD) 100 MEQ in DEXTROSE 5% 1,000 ML IV SCH (16:44)
[2019-03-02] MEDS ORDERED: hydrALAzine 20 MG INJ IV PRN (23:38)
[2019-03-03] VITALS (58 sets, daily range): BP systolic 76–144; BP diastolic 27–105; PULSE 59–102; RESP 12–34
[2019-03-03] MEDS: INSULIN ASPART [NOVOLOG] 3 ML PEN SC SCH ×6 (00:39→21:00)
[2019-03-03] MEDS: SODIUM BICARBONATE (IV ADD) 100 MEQ in DEXTROSE 5% 1,000 ML IV SCH ×3 (03:29→21:30)
[2019-03-03] MEDS ORDERED: VECURONIUM 10 MG VIAL ONE (07:00)
[2019-03-03] MEDS ORDERED: ETOMIDATE 20 MG INJ ONE (07:00)
[2019-03-03] MEDS: ENOXAPARIN 30 MG/0.3 ML SYG SC SCH (09:00)
--- NOTE | 2019-03-03 09:13 | CONS ---
Assessment/Plan Assessment/Plan Assessment/Plan (Daily) Chest x-ray showing hypoventilatory changes with small lung volumes. No acute infiltrates identified. Assessment and recommendations; 1. Patient admitted with altered mental status likely from underlying sepsis. Currently on appropriate antimicrobial regimen. 2. Source of infection likely is bilateral lower extremity cellulitis. 3. Other more comorbidities include history of Parkinson disease, hypothyroidism, COPD, CHF and chronic renal insufficiency. 4. Hyperkalemia. Continue current supportive care. Patient has been intubated. We will continue with mechanical ventilation for now. Give Kayexalate 60 g x 1 and follow-up with serum potassium level. Prognosis appears guarded. 40 minutes of critical care time was spent evaluating patient. Intubation note; Patient's niece was informed over the phone about intubation and she agreed. Patient was given 20 mg of etomidate intravenous push followed by vecuronium 10 mg IV push followed by intubation orally with 7.5 endotracheal tube without difficulty. Chest x-ray has been ordered for placement. Consultation Date/Type/Reason Admit Date/Time 03/02/2019 Date of Consultation: Mar 03, 2019 Type of Consult Pulmonary/critical care Patient is a 79-year-old female who was brought in by family to the hospital with worsening overall mental status and failure to thrive. Patient was transferred to ICU. Patient was on 100% nonrebreather and I was asked to e valuate the patient. The patient was completely unresponsive and was showing tachypnea. It was decided to electively intubate the patient which was done readily at bedside. Patient was unable to give any history by herself whatsoever. History is been obtained from medical records. Past medical history; 1. History of multiple admissions to hospital for various reasons. 2. History of Parkinson's disease. 3. Hypothyroidism. 4. CHF. 5. COPD. 6. Chronic renal insufficiency. 7. Severe peripheral vascular disease. Medications; reviewed. Allergies; none. Social history; patient has a history of smoking. Family history; patient has a supportive niece. Lives at home. Occupational history; not available. Review of system; unable to be obtained. General exam; elderly woman, unresponsive, lethargic. Tachypneic. On 100% nonrebreather mask. Date/Time of Note DATE: 03/03/19 TIME: 09:08 Past Medical History Home Meds Reported Medications Diclofenac Sodium* (Voltaren* Gel) 1% -100 Gm Gel, 2 GM TOP BID PRN for PAIN, #1 TUB 03/02/19 Carbidopa/Levodopa (Sinemet 25-100 mg Tablet) 1 Each Tablet, 1 EACH PO TID, TAB 03/02/19 Furosemide* (Furosemide*) 40 Mg Tablet, 60 MG PO DAILY, TAB 03/02/19 Hydrocodone/Acetaminophen ([place] 5-325 Tablet) 1 Each Tablet, 1 EACH PO Q12H PRN for PRN, TAB 03/02/19 Levothyroxine Sodium* (Levothyroxine Sodium*) 150 Mcg Tablet, 150 MCG PO BEFORE BREAKFAST, #30 TAB 03/02/19 Discontinued Scripts Collagenase* (Santyl*) 30 Gm Oint..gm., 1 APPLIC TOP DAILY for 30 Days Prov:ABI GARCIA 01/22/18 Megestrol Acetate* (Megace*) 40 Mg Tab, 40 MG PO DAILY for 30 Days, TAB Prov:ABI GARCIA 01/22/18 Levothyroxine Sodium* (Levothyroxine Sodium*) 150 Mcg Tablet, 150 MCG PO BEFORE BREAKFAST for 30 Days, TAB Prov:ABI GARCIA 01/22/18 Sennosides* (Senna Lax*) 8.6 Mg Tablet, 2 TAB PO BID PRN for CONSTIPATION, #30 TAB Prov:ABI GARCIA 01/22/18 Docusate Sodium (Dok) 100 Mg Capsule, 100 MG PO Q12H for 30 Days, CAP Prov:ABI GARCIA 01/22/18 Potassium Chloride* (Klor-Con*) 20 Meq Tabsr, 20 MEQ PO DAILY for 30 Days, TAB Prov:ABI GARCIA 01/22/18 Furosemide* (Furosemide*) 40 Mg Tablet, 40 MG PO DAILY for 30 Days, TAB Prov:ABI GARCIA 01/22/18 Hydrocodone Bit-Acetaminophen (Hydrocodone Bit-APAP) 5-325MG Tablet, 1 TAB PO Q6H PRN for MODERATE PAIN LEVEL 4-6, #30 TAB Prov:ABI GARCIA 01/22/18 Ascorbic Acid (Vitamin C) 500 Mg Tab, 500 MG PO DAILY for 30 Days, TAB Prov:ABI GARCIA 01/22/18 Carbidopa/Levodopa (Sinemet 25-100 mg Tablet) 1 Each Tablet, 1 EACH PO TID for 30 Days, TAB Prov:ABI GARCIA 01/22/18 Multivit-Min/Iron Fum/Folic AC (Bptey-Ccydgmu-Mhvswzjd Tablet) 1 Each Tablet, 1 EACH PO DAILY for 30 Days, TAB Prov:ABI GARCIA 01/22/18 Ferrous Sulfate* (Ferrous Sulfate*) 325 Mg Tabec, 325 MG PO DAILY for 30 Days, TAB Prov:ABI GARCIA 01/22/18 Medications Current Medications Dextrose (D50w Syringe) ONCE PRN IV DECREASED GLUCOSE Last administered on 03/02/19at 19:05; Admin Dose 50 ML; Start 03/02/19 at 14:00 Ondansetron HCl (Zofran Inj) 4 mg Q6H PRN IV NAUSEA AND/OR VOMITING; Start 03/02/19 at 14:00 Acetaminophen (Tylenol Liquid) 650 mg Q6H PRN PO PAIN LEVEL 1-3 OR FEVER; Start 03/02/19 at 14:00 Morphine Sulfate (morphine) 2 mg Q4H PRN IV PAIN LEVEL 7-10; Start 03/02/19 at 14:00 Famotidine (Pepcid Iv) 20 mg DAILY IV Last administered on 03/02/19at 15:33; Admin Dose 20 MG; Start 03/02/19 at 14:30 Enoxaparin Sodium (Lovenox) 30 mg DAILY SC ; Start 03/03/19 at 09:00 Sodium Bicarbonate 100 meq/Dextrose 1,000 ml @ 100 mls/hr Q10H IV Last administered on 03/03/19at 03:29; Admin Dose 100 MLS/HR; Start 03/02/19 at 15:30 Clonidine (Catapres) 0.2 mg Q6H PRN PO ELEVATED BLOOD PRESSURE; Start 03/02/19 at 18:00 Insulin Aspart (Novolog Insulin Pen) NOVOLOG *MODERATE* ALGORI... Q4 SC ; Start 03/03/19 at 01:00 Hydralazine HCl (Apresoline) 10 mg Q4H PRN IV SBP more than 150 mm hg ; Start 03/02/19 at 23:38 Allergies: Coded Allergies: No Known Allergy (Unverified , 03/02/19) Past Surgical History Past Surgical Hx: other Social History Smoking Status: Never smoker Exam/Review of Systems Exam Vitals Vital Signs Date Temp Pulse Resp B/P (MAP) Pulse Ox O2 O2 Flow FiO2 Time Delivery Rate 03/03/19 34 81/55 (64) 99 Non 06:56 Rebreather 03/03/19 15.0 05:48 03/03/19 65 05:00 03/03/19 97.6 04:00 Intake and Output 03/02/19 03/02/19 03/03/19 1515:00 23:00 07:00 IntakeIntake Total 1760 ml 800 ml BalanceBalance 1760 ml 800 ml Exam H ENT exam; neck is chronically flexed. Patient has a multiple carious teeth. Pupils are small bilaterally. No neck masses. No lymphadenopathy. Pupils are small bilaterally. Chest exam; diminished breath sounds throughout. S1-S2 audible, no murmurs. Regular rhythm. Abdomen exam; soft, protuberant. No organomegaly. Bowel sounds are sluggish. Extremity exam; 2+ pitting edema with bilateral lower extremity cellulitis. [employer] exam; patient is completely unresponsive. Results Result Diagram: 03/03/19 0429 03/03/19 0429 Results 24hrs Laboratory Tests Test 03/02/19 12:17 03/02/19 12:39 03/02/19 14:01 03/02/19 14:15 POC Venous 0.9 Lactate White Blood 8.7 # Count Red Blood Count 4.35 # Hemoglobin 13.1 # Hematocrit 41.9 # Mean 96.3 Corpuscular Volume Mean 30.1 Corpuscular Hemoglobin Mean 31.3 L Corpuscular Hemoglobin Conc ent Red Cell 16.8 H Distribution Width Platelet Count 119 #L Mean Platelet 11.2 H Volume Immature 1.500 H Granulocytes % Neutrophils % Segmented 60 Neutrophils % (Manual) Band 22 H Neutrophils % (Manual) Lymphocytes % Lymphocytes % 8 L (Manual) Monocytes % Monocytes % 8 (Manual) Eosinophils % Basophils % Basophils % 1 (Manual) Promyelocytes % 1 H (Manual) Nucleated Red 3 H Blood Cells % Immature 0.130 H Granulocytes # Neutrophils # Neutrophils # 5.4 (Manual) Band 1.9 H Neutrophils # Lymphocytes 0.6 L (Manual) Lymphocytes # Monocytes # Monocytes # 0.6 (Manual) Eosinophils # Basophils # Basophils # 0.0 (Manual) Promyelocytes # 0.0 Nucleated Red Blood Cells # Platelet DECREASED Estimate Poikilocytosis 3+ Anisocytosis 1+ Microcytosis 1+ Macrocytosis 1+ Tear Drop Cells 1+ Prothrombin 13.2 Time Prothrombin 1.0 Time Ratio INR 0.99 International Normalized Rati o Activated 51.0 H Partial Thrombo plast Time Sodium Level 142 Potassium Level 7.3 *H Chloride Level 116 H Carbon Dioxide 12 L Level Anion Gap 14 H Blood Urea 168 H Nitrogen Creatinine 3.20 H Est Glomerular Filtrat Rate mL/min Glucose Level 87 Hemoglobin A1c 5.8 Calcium Level 9.0 Total Bilirubin 0.3 Direct 0.00 Bilirubin Indirect 0.3 Bilirubin Aspartate Amino 114 H Transf (AST/SGO T) Alanine 27 Aminotransferas e (ALT/SGPT) Alkaline 396 H Phosphatase Troponin I < 0.012 Total Protein 7.6 Albumin 3.9 Globulin 3.70 H Albumin/Globuli 1.05 n Ratio Lipase 1316 H Bedside Glucose 99 Phosphorus 9.7 H Level Magnesium Level 4.5 H Test 03/02/19 14:16 03/02/19 14:30 03/02/19 14:33 03/02/19 16:37 Blood Gas Blood venous Specimen Source Arterial Blood 03/02/2019 2:19: Date Drawn 34 PM Arterial Blood OTHER Gas Puncture Site Jewel Test N/A Venous Blood pH 7.090 *L Venous Blood 44.2 pCO2 (Temp Corrected ) Venous Blood 30.6 H pO2 (Temp Corrected ) Venous Blood 13.1 L HCO3 Venous Blood 60.4 Oxygen Saturation Venous Blood -16.2 L Base Excess Venous Blood 12.6 Total Hemoglobin Venous Blood 59.6 Oxyhemoglobin Venous Blood 0.3 Methemoglobin Blood Gas A-a 66.2 O2 Differential Carboxyhemoglob 1.0 in Blood Gas 37.0 Temperature Blood Gas NASAL CANNULA Modality FiO2 21.0 Blood Gas EKINDER Cruz Critical Value Read Back Blood Gas MDA Notified Whom Blood Gas 03/02/2019 2:22: Notified Time 33 PM Sodium Level 142 142 Potassium Level 6.9 *H 5.8 H Chloride Level 120 H 119 H Carbon Dioxide 12 L 11 L Level Anion Gap 10 12 Blood Urea 165 H 158 H Nitrogen Creatinine 2.98 H 3.11 H Est Glomerular Filtrat Rate mL/min Glucose Level 252 #H 34 #*L Lactic Acid 1.1 2.5 *H Level Calcium Level 8.1 L 9.6 Bedside Glucose 194 Bedside Urine 5.0 pH (LAB) Bedside Urine 3+ H Protein (LAB) Bedside Urine Negative Glucose (UA) Bedside Urine Trace H Ketones (LAB) Bedside Urine 3+ H Blood Bedside Urine Negative Nitrite (LAB) Bedside Urine 3+ H Leukocyte Magdalene ase (L Test 03/02/19 18:45 03/02/19 19:01 03/02/19 20:00 03/03/19 00:18 Bedside Glucose 67 L 140 110 Blood Gas Blood arterial Specimen Source Arterial Blood 03/02/2019 8:00: Date Drawn 42 PM Arterial Blood 7.199 *L pH (Temp corrected ) Arterial Blood 35.6 pCO2 (Temp correct) Arterial Blood 85.3 pO2 (Temp corrected ) Arterial Blood 13.6 L HCO3 Arterial Blood -13.5 L Base Excess Arterial Blood 95.7 Oxygen Saturati on Jewel Test ACCEPTAB Arterial Blood Right Radial Gas Puncture Site Arterial 0.6 Blood Carboxyhe moglobin Arterial Blood 0.3 Methemoglobin Blood Gas A-a 21.8 O2 Differential Oxyhemoglobin 94.8 Percent Blood Gas 37.0 Temperature Blood Gas 17 Actual Respiration Rat e Blood Gas ROOM AIR Modality FiO2 21.0 Blood Gas D Critical Value PETER SILVEIRA Read Back RN Blood Gas Notified Whom Blood Gas 03/02/2019 8:29: Notified Time 06 PM Sodium Level 144 Potassium Level 5.7 H Chloride Level 119 H Carbon Dioxide 15 L Level Anion Gap 10 Blood Urea 159 H Nitrogen Creatinine 2.76 H Est Glomerular Filtrat Rate mL/min Glucose Level 120 # Calcium Level 9.1 Test 03/03/19 04:29 03/03/19 04:30 03/03/19 04:42 03/03/19 06:00 White Blood 10.0 Count Red Blood Count 3.60 L Hemoglobin 10.9 L Hematocrit 33.5 #L Mean 93.1 Corpuscular Volume Mean 30.3 Corpuscular Hemoglobin Mean 32.5 Corpuscular Hemoglobin Conc ent Red Cell 16.1 H Distribution Width Platelet Count 109 L Mean Platelet 11.4 H Volume Immature 2.200 H Granulocytes % Neutrophils % Segmented 76 Neutrophils % (Manual) Band 9 H Neutrophils % (Manual) Lymphocytes % Lymphocytes % 8 L (Manual) Monocytes % Monocytes % 4 (Manual) Eosinophils % Basophils % Basophils % 1 (Manual) Myelocytes % 2 H (Manual) Nucleated Red 17 H Blood Cells % Immature 0.220 H Granulocytes # Neutrophils # Neutrophils # 7.7 H (Manual) Band 0.9 H Neutrophils # Lymphocytes 0.8 (Manual) Lymphocytes # Monocytes # Monocytes # 0.4 (Manual) Eosinophils # Basophils # Basophils # 0.1 H (Manual) Myelocytes # 0.2 H Nucleated Red Blood Cells # Platelet DECREASED Estimate Giant Platelets 3 H Anisocytosis 1+ Macrocytosis 1+ Prothrombin 13.7 Time Prothrombin 1.1 Time Ratio INR 1.04 International Normalized Rati o Activated 48.1 H Partial Thrombo plast Time Sodium Level 144 Potassium Level 6.3 *H Chloride Level 117 H Carbon Dioxide 17 L Level Anion Gap 10 Blood Urea 154 H Nitrogen Creatinine 3.01 H Est Glomerular Filtrat Rate mL/min Glucose Level 79 # Calcium Level 8.6 Total Bilirubin 0.4 Direct 0.00 Bilirubin Indirect 0.4 Bilirubin Aspartate Amino 84 H Transf (AST/SGO T) Alanine 30 Aminotransferas e (ALT/SGPT) Alkaline 317 H Phosphatase Total Protein 6.0 #L Albumin 3.2 L Globulin 2.80 Albumin/Globuli 1.14 n Ratio Uric Acid 8.0 H Magnesium Level 4.1 H Creatine Kinase 37 Bedside Glucose 108 Blood Gas Blood Specimen arterial Source Arterial Blood 03/03/2019 5:35 Date Drawn :24 AM Arterial Blood 7.391 pH (Temp corrected ) Arterial Blood 28.3 L pCO2 (Temp correct) Arterial Blood 57.6 L pO2 (Temp corrected ) Arterial Blood 16.8 L HCO3 Arterial Blood -6.9 L Base Excess Arterial Blood 91.5 L Oxygen Saturati on Jewel Test ACCEPTAB Arterial Blood Right Radial Gas Puncture Site Arterial 0.3 Blood Carboxyhe moglobin Arterial Blood 0.1 Methemoglobin Blood Gas A-a 58.2 H O2 Differential Oxyhemoglobin 91.1 L Percent Blood Gas 37.0 Temperature Blood Gas 20 Actual Respiration Rat e Blood Gas ROOM AIR Modality FiO2 21.0 Blood Gas Notified Whom Blood Gas 03/03/2019 5:39 Notified Time :57 AM Medications Medication Current Medications Dextrose (D50w Syringe) ONCE PRN IV DECREASED GLUCOSE Last administered on 03/02/19at 19:05; Admin Dose 50 ML; Start 03/02/19 at 14:00 Ondansetron HCl (Zofran Inj) 4 mg Q6H PRN IV NAUSEA AND/OR VOMITING; Start 03/02/19 at 14:00 Acetaminophen (Tylenol Liquid) 650 mg Q6H PRN PO PAIN LEVEL 1-3 OR FEVER; Start 03/02/19 at 14:00 Morphine Sulfate (morphine) 2 mg Q4H PRN IV PAIN LEVEL 7-10; Start 03/02/19 at 14:00 Famotidine (Pepcid Iv) 20 mg DAILY IV Last administered on 03/02/19at 15:33; Admin Dose 20 MG; Start 03/02/19 at 14:30 Enoxaparin Sodium (Lovenox) 30 mg DAILY SC ; Start 03/03/19 at 09:00 Sodium Bicarbonate 100 meq/Dextrose 1,000 ml @ 100 mls/hr Q10H IV Last administered on 03/03/19at 03:29; Admin Dose 100 MLS/HR; Start 03/02/19 at 15:30 Clonidine (Catapres) 0.2 mg Q6H PRN PO ELEVATED BLOOD PRESSURE; Start 03/02/19 at 18:00 Insulin Aspart (Novolog Insulin Pen) NOVOLOG *MODERATE* ALGORI... Q4 SC ; Start 03/03/19 at 01:00 Hydralazine HCl (Apresoline) 10 mg Q4H PRN IV SBP more than 150 mm hg ; Start 03/02/19 at 23:38 GABRIEL PRESLEY Mar 03, 2019 09:13
--- NOTE | 2019-03-03 09:18 | HP ---
Date/Time of Note Date/Time of Note DATE: 03/03/19 TIME: 09:15 Assessment/Plan VTE Prophylaxis Risk score (from [facility] [place]0 risk: 8 SCD applied (from [facility] [place] No SCD contraindicated: other Pharmacological prophylaxis: LMWH Lines/Catheters IV Catheter Type (from [facility]): Peripheral IV Urinary Cath still in place: No Assessment/Plan Hospital Course 1) hyperkalemia - treat - secondary to renal failure - monitor 2) renal failure - appreciate nephrology help - patient may need to be started on hemodialysis 3) altered level of consciousness - probably seconardary to #2 - intubated for airway protection Result Diagram: 03/03/19 0429 03/03/19 042 Results 24hrs Laboratory Tests Test 03/02/19 12:17 03/02/19 12:39 03/02/19 14:01 03/02/19 14:15 POC Venous 0.9 Lactate White Blood 8.7 # Count Red Blood Count 4.35 # Hemoglobin 13.1 # Hematocrit 41.9 # Mean 96.3 Corpuscular Volume Mean 30.1 Corpuscular Hemoglobin Mean 31.3 L Corpuscular Hemoglobin Conc ent Red Cell 16.8 H Distribution Width Platelet Count 119 #L Mean Platelet 11.2 H Volume Immature 1.500 H Granulocytes % Neutrophils % Segmented 60 Neutrophils % (Manual) Band 22 H Neutrophils % (Manual) Lymphocytes % Lymphocytes % 8 L (Manual) Monocytes % Monocytes % 8 (Manual) Eosinophils % Basophils % Basophils % 1 (Manual) Promyelocytes % 1 H (Manual) Nucleated Red 3 H Blood Cells % Immature 0.130 H Granulocytes # Neutrophils # Neutrophils # 5.4 (Manual) Band 1.9 H Neutrophils # Lymphocytes 0.6 L (Manual) Lymphocytes # Monocytes # Monocytes # 0.6 (Manual) Eosinophils # Basophils # Basophils # 0.0 (Manual) Promyelocytes # 0.0 Nucleated Red Blood Cells # Platelet DECREASED Estimate Poikilocytosis 3+ Anisocytosis 1+ Microcytosis 1+ Macrocytosis 1+ Tear Drop Cells 1+ Prothrombin 13.2 Time Prothrombin 1.0 Time Ratio INR 0.99 International Normalized Rati o Activated 51.0 H Partial Thrombo plast Time Sodium Level 142 Potassium Level 7.3 *H Chloride Level 116 H Carbon Dioxide 12 L Level Anion Gap 14 H Blood Urea 168 H Nitrogen Creatinine 3.20 H Est Glomerular Filtrat Rate mL/min Glucose Level 87 Hemoglobin A1c 5.8 Calcium Level 9.0 Total Bilirubin 0.3 Direct 0.00 Bilirubin Indirect 0.3 Bilirubin Aspartate Amino 114 H Transf (AST/SGO T) Alanine 27 Aminotransferas e (ALT/SGPT) Alkaline 396 H Phosphatase Troponin I < 0.012 Total Protein 7.6 Albumin 3.9 Globulin 3.70 H Albumin/Globuli 1.05 n Ratio Lipase 1316 H Bedside Glucose 99 Phosphorus 9.7 H Level Magnesium Level 4.5 H Test 03/02/19 14:16 03/02/19 14:30 03/02/19 14:33 03/02/19 16:37 Blood Gas Blood venous Specimen Source Arterial Blood 03/02/2019 2:19: Date Drawn 34 PM Arterial Blood OTHER Gas Puncture Site Jewel Test N/A Venous Blood pH 7.090 *L Venous Blood 44.2 pCO2 (Temp Corrected ) Venous Blood 30.6 H pO2 (Temp Corrected ) Venous Blood 13.1 L HCO3 Venous Blood 60.4 Oxygen Saturation Venous Blood -16.2 L Base Excess Venous Blood 12.6 Total Hemoglobin Venous Blood 59.6 Oxyhemoglobin Venous Blood 0.3 Methemoglobin Blood Gas A-a 66.2 O2 Differential Carboxyhemoglob 1.0 in Blood Gas 37.0 Temperature Blood Gas NASAL CANNULA Modality FiO2 21.0 Blood Gas ADOLFO Cruz Critical Value Read Back Blood Gas MDA Notified Whom Blood Gas 03/02/2019 2:22: Notified Time 33 PM Sodium Level 142 142 Potassium Level 6.9 *H 5.8 H Chloride Level 120 H 119 H Carbon Dioxide 12 L 11 L Level Anion Gap 10 12 Blood Urea 165 H 158 H Nitrogen Creatinine 2.98 H 3.11 H Est Glomerular Filtrat Rate mL/min Glucose Level 252 #H 34 #*L Lactic Acid 1.1 2.5 *H Level Calcium Level 8.1 L 9.6 Bedside Glucose 194 Bedside Urine 5.0 pH (LAB) Bedside Urine 3+ H Protein (LAB) Bedside Urine Negative Glucose (UA) Bedside Urine Trace H Ketones (LAB) Bedside Urine 3+ H Blood Bedside Urine Negative Nitrite (LAB) Bedside Urine 3+ H Leukocyte Magdalene ase (L Test 03/02/19 18:45 03/02/19 19:01 03/02/19 20:00 7/31/19 00:18 Bedside Glucose 67 L 140 110 Blood Gas Blood arterial Specimen Source Arterial Blood 03/02/2019 8:00: Date Drawn 42 PM Arterial Blood 7.199 *L pH (Temp corrected ) Arterial Blood 35.6 pCO2 (Temp correct) Arterial Blood 85.3 pO2 (Temp corrected ) Arterial Blood 13.6 L HCO3 Arterial Blood -13.5 L Base Excess Arterial Blood 95.7 Oxygen Saturati on Jewel Test ACCEPTAB Arterial Blood Right Radial Gas Puncture Site Arterial 0.6 Blood Carboxyhe moglobin Arterial Blood 0.3 Methemoglobin Blood Gas A-a 21.8 O2 Differential Oxyhemoglobin 94.8 Percent Blood Gas 37.0 Temperature Blood Gas 17 Actual Respiration Rat e Blood Gas ROOM AIR Modality FiO2 21.0 Blood Gas D Critical Value PETER SILVEIRA Read Back RN Blood Gas Notified Whom Blood Gas 03/02/2019 8:29: Notified Time 06 PM Sodium Level 144 Potassium Level 5.7 H Chloride Level 119 H Carbon Dioxide 15 L Level Anion Gap 10 Blood Urea 159 H Nitrogen Creatinine 2.76 H Est Glomerular Filtrat Rate mL/min Glucose Level 120 # Calcium Level 9.1 Test 03/03/19 04:29 03/03/19 04:30 03/03/19 04:42 03/03/19 06:00 White Blood 10.0 Count Red Blood Count 3.60 L Hemoglobin 10.9 L Hematocrit 33.5 #L Mean 93.1 Corpuscular Volume Mean 30.3 Corpuscular Hemoglobin Mean 32.5 Corpuscular Hemoglobin Conc ent Red Cell 16.1 H Distribution Width Platelet Count 109 L Mean Platelet 11.4 H Volume Immature 2.200 H Granulocytes % Neutrophils % Segmented 76 Neutrophils % (Manual) Band 9 H Neutrophils % (Manual) Lymphocytes % Lymphocytes % 8 L (Manual) Monocytes % Monocytes % 4 (Manual) Eosinophils % Basophils % Basophils % 1 (Manual) Myelocytes % 2 H (Manual) Nucleated Red 17 H Blood Cells % Immature 0.220 H Granulocytes # Neutrophils # Neutrophils # 7.7 H (Manual) Band 0.9 H Neutrophils # Lymphocytes 0.8 (Manual) Lymphocytes # Monocytes # Monocytes # 0.4 (Manual) Eosinophils # Basophils # Basophils # 0.1 H (Manual) Myelocytes # 0.2 H Nucleated Red Blood Cells # Platelet DECREASED Estimate Giant Platelets 3 H Anisocytosis 1+ Macrocytosis 1+ Prothrombin 13.7 Time Prothrombin 1.1 Time Ratio INR 1.04 International Normalized Rati o Activated 48.1 H Partial Thrombo plast Time Sodium Level 144 Potassium Level 6.3 *H Chloride Level 117 H Carbon Dioxide 17 L Level Anion Gap 10 Blood Urea 154 H Nitrogen Creatinine 3.01 H Est Glomerular Filtrat Rate mL/min Glucose Level 79 # Calcium Level 8.6 Total Bilirubin 0.4 Direct 0.00 Bilirubin Indirect 0.4 Bilirubin Aspartate Amino 84 H Transf (AST/SGO T) Alanine 30 Aminotransferas e (ALT/SGPT) Alkaline 317 H Phosphatase Total Protein 6.0 #L Albumin 3.2 L Globulin 2.80 Albumin/Globuli 1.14 n Ratio Uric Acid 8.0 H Magnesium Level 4.1 H Creatine Kinase 37 Bedside Glucose 108 Blood Gas Blood Specimen arterial Source Arterial Blood 03/03/2019 5:35 Date Drawn :24 AM Arterial Blood 7.391 pH (Temp corrected ) Arterial Blood 28.3 L pCO2 (Temp correct) Arterial Blood 57.6 L pO2 (Temp corrected ) Arterial Blood 16.8 L HCO3 Arterial Blood -6.9 L Base Excess Arterial Blood 91.5 L Oxygen Saturati on Jewel Test ACCEPTAB Arterial Blood Right Radial Gas Puncture Site Arterial 0.3 Blood Carboxyhe moglobin Arterial Blood 0.1 Methemoglobin Blood Gas A-a 58.2 H O2 Differential Oxyhemoglobin 91.1 L Percent Blood Gas 37.0 Temperature Blood Gas 20 Actual Respiration Rat e Blood Gas ROOM AIR Modality FiO2 21.0 Blood Gas Notified Whom Blood Gas 03/03/2019 5:39 Notified Time :57 AM HPI/ROS Admit Date/Time Admit Date/Time 03/02/2019 Hx of Present Illness Patient with history of chronic renal insufficiency, COPD, hypothyroidism, and Parkinson's was brought by family into the hospital for decreased mentation and failure to thrive. Patient was found to be hyperkalemic and in worsening renal status. Patient was treated for hyperkalemia in the emergency room and then admitted to the ICU for continued care. Overnight, the patient became more unresponsive and she was intubated for airway protection. PMH/Family/Social Past Medical History Medical History: hypothyroid, renal disease Medications Current Medications Dextrose (D50w Syringe) ONCE PRN IV DECREASED GLUCOSE Last administered on 03/02/19at 19:05; Admin Dose 50 ML; Start 03/02/19 at 14:00 Ondansetron HCl (Zofran Inj) 4 mg Q6H PRN IV NAUSEA AND/OR VOMITING; Start 03/02/19 at 14:00 Acetaminophen (Tylenol Liquid) 650 mg Q6H PRN PO PAIN LEVEL 1-3 OR FEVER; Start 03/02/19 at 14:00 Morphine Sulfate (morphine) 2 mg Q4H PRN IV PAIN LEVEL 7-10; Start 03/02/19 at 14:00 Famotidine (Pepcid Iv) 20 mg DAILY IV Last administered on 03/02/19at 15:33; Admin Dose 20 MG; Start 03/02/19 at 14:30 Enoxaparin Sodium (Lovenox) 30 mg DAILY SC ; Start 03/03/19 at 09:00 Sodium Bicarbonate 100 meq/Dextrose 1,000 ml @ 100 mls/hr Q10H IV Last administered on 03/03/19at 03:29; Admin Dose 100 MLS/HR; Start 03/02/19 at 15:30 Clonidine (Catapres) 0.2 mg Q6H PRN PO ELEVATED BLOOD PRESSURE; Start 03/02/19 at 18:00 Insulin Aspart (Novolog Insulin Pen) NOVOLOG *MODERATE* ALGORI... Q4 SC ; Start 03/03/19 at 01:00 Hydralazine HCl (Apresoline) 10 mg Q4H PRN IV SBP more than 150 mm hg ; Start 03/02/19 at 23:38 Sodium Polystyrene Sulfonate (Kayexalate) 60 gm ONCE ONCE NGT ; Start 03/03/19 at 09:30; Stop 03/03/19 at 09:31; Status UNV Lidocaine (Xylocaine 1% (Mpf)) 5 ml ONCE ONCE SC ; Start 03/03/19 at 09:30; Stop 03/03/19 at 09:31; Status UNV Coded Allergies: No Known Allergy (Unverified , 03/02/19) Past Surgical History Past Surgical Hx: other Family History Significant Family History: no pertinent family hx Social History Smoking Status: Never smoker Exam/Review of Systems Vital Signs Vitals Vital Signs Date Temp Pulse Resp B/P (MAP) Pulse Ox O2 O2 Flow FiO2 Time Delivery Rate 03/03/19 68 08:00 03/03/19 34 81/55 (64) 99 Non 06:56 Rebreather 03/03/19 15.0 05:48 03/03/19 97.6 04:00 Intake and Output 03/02/19 03/02/19 03/03/19 1515:00 23:00 07:00 IntakeIntake Total 1760 ml 800 ml BalanceBalance 1760 ml 800 ml Exam Constitutional: well developed Head: normocephalic, atraumatic Neck: supple Respiratory: diminished breath sounds Cardiovascular: regular rate and rhythm Gastrointestinal: soft, non-tender Extremities: normal pulses VERNON COWART Mar 03, 2019 09:18
[2019-03-03] MEDS ORDERED: LIDOCAINE 1% (MPF) 5 ML VIAL SC ONE (09:30)
[2019-03-03] MEDS ORDERED: NA POLYST SULFON 15 GM/60 ML BTL NGT ONE (09:30)
--- NOTE | 2019-03-03 10:05 | CONS ---
Assessment/Plan Assessment/Plan Assessment/Plan (Daily) 1. acute hyperkalemia with K 7.3 on admission 2. acute kidney injury on CKD III 2/2 ischemic ATN + prerenal azotemia 3. Severe metabolic acidosis 4. septic shock on admission unclear source at this time 5. H/o COPD 6. H/o diastolic Heart failure with Preserved EF 7. H/o Hypothyroidisk 8. H/o Parkinoson's disease 9. h/o HTN 10. acute hypoxic respiratory failure intubate on ventilator Plan: pt remains to be Hypoxic on NRBM, electively intubated on ventilator- Levophed gtt for BP support, pulmonary following BUN/Cr 154/3.01, K 6.3- will give additional Na bicarbonate one dose now and Kayexalate additional dose Ok to have PICC Line IV abx Meropenem and Vancomycin< renally dose all abx and monitoe electrolytes Sodium bicarbonate drip with 100MEQ Sodium bicarboante to run at 100 cc/hr, I will give additional NS at 70 cc /hr K still high, Urine output 100 cc since AM, I will give albumin + lasix dose now I had discusesd with patient Niece about Pt condition and Explained in her detail about need for dialysis, Due to patient age and comorbidities they decided not have to have HD at this time, they would like to treat conservatively will follow up Consultation Date/Type/Reason Admit Date/Time Mar 02, 2019 at 13:39 Initial Consult Date 03/03/19 Type of Consult NEPHROLOGY Requesting Provider: LISA MATA MD Date/Time of Note DATE: 03/03/19 TIME: 10:05 24 HR Interval Summary Free Text/Dictation pt remains to be Hypoxic on NRBM, electively intubated on ventilator Exam/Review of Systems Exam Vitals Vital Signs Date Temp Pulse Resp B/P (MAP) Pulse Ox O2 O2 Flow FiO2 Time Delivery Rate 03/03/19 68 08:00 03/03/19 34 81/55 (64) 99 Non 06:56 Rebreather 03/03/19 15.0 05:48 03/03/19 97.6 04:00 Intake and Output 03/02/19 03/02/19 03/03/19 1515:00 23:00 07:00 IntakeIntake Total 1760 ml 800 ml BalanceBalance 1760 ml 800 ml Exam Constitutional: intubated on ventilator, Non verbal Respiratory: congested cough, crackles/rales, diminished breath sounds Cardiovascular: regular rate and rhythm, nl pulses Gastrointestinal: soft, non-tender, other (non distended, BS+) Musculoskeletal: muscle weakness, swelling (1+ edema ) Neurological: sedated on ventilator Lymph: nl lymph nodes Results Result Diagram: 03/03/19 0429 03/03/19 0429 Results 24hrs Laboratory Tests Test 03/02/19 12:17 03/02/19 12:39 03/02/19 14:01 03/02/19 14:15 POC Venous 0.9 Lactate White Blood 8.7 # Count Red Blood Count 4.35 # Hemoglobin 13.1 # Hematocrit 41.9 # Mean 96.3 Corpuscular Volume Mean 30.1 Corpuscular Hemoglobin Mean 31.3 L Corpuscular Hemoglobin Conc ent Red Cell 16.8 H Distribution Width Platelet Count 119 #L Mean Platelet 11.2 H Volume Immature 1.500 H Granulocytes % Neutrophils % Segmented 60 Neutrophils % (Manual) Band 22 H Neutrophils % (Manual) Lymphocytes % Lymphocytes % 8 L (Manual) Monocytes % Monocytes % 8 (Manual) Eosinophils % Basophils % Basophils % 1 (Manual) Promyelocytes % 1 H (Manual) Nucleated Red 3 H Blood Cells % Immature 0.130 H Granulocytes # Neutrophils # Neutrophils # 5.4 (Manual) Band 1.9 H Neutrophils # Lymphocytes 0.6 L (Manual) Lymphocytes # Monocytes # Monocytes # 0.6 (Manual) Eosinophils # Basophils # Basophils # 0.0 (Manual) Promyelocytes # 0.0 Nucleated Red Blood Cells # Platelet DECREASED Estimate Poikilocytosis 3+ Anisocytosis 1+ Microcytosis 1+ Macrocytosis 1+ Tear Drop Cells 1+ Prothrombin 13.2 Time Prothrombin 1.0 Time Ratio INR 0.99 International Normalized Rati o Activated 51.0 H Partial Thrombo plast Time Sodium Level 142 Potassium Level 7.3 *H Chloride Level 116 H Carbon Dioxide 12 L Level Anion Gap 14 H Blood Urea 168 H Nitrogen Creatinine 3.20 H Est Glomerular Filtrat Rate mL/min Glucose Level 87 Hemoglobin A1c 5.8 Calcium Level 9.0 Total Bilirubin 0.3 Direct 0.00 Bilirubin Indirect 0.3 Bilirubin Aspartate Amino 114 H Transf (AST/SGO T) Alanine 27 Aminotransferas e (ALT/SGPT) Alkaline 396 H Phosphatase Troponin I < 0.012 Total Protein 7.6 Albumin 3.9 Globulin 3.70 H Albumin/Globuli 1.05 n Ratio Lipase 1316 H Bedside Glucose 99 Phosphorus 9.7 H Level Magnesium Level 4.5 H Test 03/02/19 14:16 03/02/19 14:30 03/02/19 14:33 03/02/19 16:37 Blood Gas Blood venous Specimen Source Arterial Blood 03/02/2019 2:19: Date Drawn 34 PM Arterial Blood OTHER Gas Puncture Site Jewel Test N/A Venous Blood pH 7.090 *L Venous Blood 44.2 pCO2 (Temp Corrected ) Venous Blood 30.6 H pO2 (Temp Corrected ) Venous Blood 13.1 L HCO3 Venous Blood 60.4 Oxygen Saturation Venous Blood -16.2 L Base Excess Venous Blood 12.6 Total Hemoglobin Venous Blood 59.6 Oxyhemoglobin Venous Blood 0.3 Methemoglobin Blood Gas A-a 66.2 O2 Differential Carboxyhemoglob 1.0 in Blood Gas 37.0 Temperature Blood Gas NASAL CANNULA Modality FiO2 21.0 Blood Gas ADOLFO Cruz Critical Value Read Back Blood Gas MDA Notified Whom Blood Gas 03/02/2019 2:22: Notified Time 33 PM Sodium Level 142 142 Potassium Level 6.9 *H 5.8 H Chloride Level 120 H 119 H Carbon Dioxide 12 L 11 L Level Anion Gap 10 12 Blood Urea 165 H 158 H Nitrogen Creatinine 2.98 H 3.11 H Est Glomerular Filtrat Rate mL/min Glucose Level 252 #H 34 #*L Lactic Acid 1.1 2.5 *H Level Calcium Level 8.1 L 9.6 Bedside Glucose 194 Bedside Urine 5.0 pH (LAB) Bedside Urine 3+ H Protein (LAB) Bedside Urine Negative Glucose (UA) Bedside Urine Trace H Ketones (LAB) Bedside Urine 3+ H Blood Bedside Urine Negative Nitrite (LAB) Bedside Urine 3+ H Leukocyte Magdalene ase (L Test 03/02/19 18:45 03/02/19 19:01 03/02/19 20:00 03/03/19 00:18 Bedside Glucose 67 L 140 110 Blood Gas Blood arterial Specimen Source Arterial Blood 03/02/2019 8:00: Date Drawn 42 PM Arterial Blood 7.199 *L pH (Temp corrected ) Arterial Blood 35.6 pCO2 (Temp correct) Arterial Blood 85.3 pO2 (Temp corrected ) Arterial Blood 13.6 L HCO3 Arterial Blood -13.5 L Base Excess Arterial Blood 95.7 Oxygen Saturati on Jewel Test ACCEPTAB Arterial Blood Right Radial Gas Puncture Site Arterial 0.6 Blood Carboxyhe moglobin Arterial Blood 0.3 Methemoglobin Blood Gas A-a 21.8 O2 Differential Oxyhemoglobin 94.8 Percent Blood Gas 37.0 Temperature Blood Gas 17 Actual Respiration Rat e Blood Gas ROOM AIR Modality FiO2 21.0 Blood Gas D Critical Value SHAQUILLEAHMET JORDANA Read Back RN Blood Gas Notified Whom Blood Gas 03/02/2019 8:29: Notified Time 06 PM Sodium Level 144 Potassium Level 5.7 H Chloride Level 119 H Carbon Dioxide 15 L Level Anion Gap 10 Blood Urea 159 H Nitrogen Creatinine 2.76 H Est Glomerular Filtrat Rate mL/min Glucose Level 120 # Calcium Level 9.1 Test 03/03/19 04:29 03/03/19 04:30 03/03/19 04:42 03/03/19 06:00 White Blood 10.0 Count Red Blood Count 3.60 L Hemoglobin 10.9 L Hematocrit 33.5 #L Mean 93.1 Corpuscular Volume Mean 30.3 Corpuscular Hemoglobin Mean 32.5 Corpuscular Hemoglobin Conc ent Red Cell 16.1 H Distribution Width Platelet Count 109 L Mean Platelet 11.4 H Volume Immature 2.200 H Granulocytes % Neutrophils % Segmented 76 Neutrophils % (Manual) Band 9 H Neutrophils % (Manual) Lymphocytes % Lymphocytes % 8 L (Manual) Monocytes % Monocytes % 4 (Manual) Eosinophils % Basophils % Basophils % 1 (Manual) Myelocytes % 2 H (Manual) Nucleated Red 17 H Blood Cells % Immature 0.220 H Granulocytes # Neutrophils # Neutrophils # 7.7 H (Manual) Band 0.9 H Neutrophils # Lymphocytes 0.8 (Manual) Lymphocytes # Monocytes # Monocytes # 0.4 (Manual) Eosinophils # Basophils # Basophils # 0.1 H (Manual) Myelocytes # 0.2 H Nucleated Red Blood Cells # Platelet DECREASED Estimate Giant Platelets 3 H Anisocytosis 1+ Macrocytosis 1+ Prothrombin 13.7 Time Prothrombin 1.1 Time Ratio INR 1.04 International Normalized Rati o Activated 48.1 H Partial Thrombo plast Time Sodium Level 144 Potassium Level 6.3 *H Chloride Level 117 H Carbon Dioxide 17 L Level Anion Gap 10 Blood Urea 154 H Nitrogen Creatinine 3.01 H Est Glomerular Filtrat Rate mL/min Glucose Level 79 # Calcium Level 8.6 Total Bilirubin 0.4 Direct 0.00 Bilirubin Indirect 0.4 Bilirubin Aspartate Amino 84 H Transf (AST/SGO T) Alanine 30 Aminotransferas e (ALT/SGPT) Alkaline 317 H Phosphatase Total Protein 6.0 #L Albumin 3.2 L Globulin 2.80 Albumin/Globuli 1.14 n Ratio Uric Acid 8.0 H Magnesium Level 4.1 H Creatine Kinase 37 Bedside Glucose 108 Blood Gas Blood Specimen arterial Source Arterial Blood 03/03/2019 5:35 Date Drawn :24 AM Arterial Blood 7.391 pH (Temp corrected ) Arterial Blood 28.3 L pCO2 (Temp correct) Arterial Blood 57.6 L pO2 (Temp corrected ) Arterial Blood 16.8 L HCO3 Arterial Blood -6.9 L Base Excess Arterial Blood 91.5 L Oxygen Saturati on Jewel Test ACCEPTAB Arterial Blood Right Radial Gas Puncture Site Arterial 0.3 Blood Carboxyhe moglobin Arterial Blood 0.1 Methemoglobin Blood Gas A-a 58.2 H O2 Differential Oxyhemoglobin 91.1 L Percent Blood Gas 37.0 Temperature Blood Gas 20 Actual Respiration Rat e Blood Gas ROOM AIR Modality FiO2 21.0 Blood Gas Notified Whom Blood Gas 03/03/2019 5:39 Notified Time :57 AM Medications Medication Current Medications Dextrose (D50w Syringe) ONCE PRN IV DECREASED GLUCOSE Last administered on 03/02/19at 19:05; Admin Dose 50 ML; Start 03/02/19 at 14:00 Ondansetron HCl (Zofran Inj) 4 mg Q6H PRN IV NAUSEA AND/OR VOMITING; Start 03/02/19 at 14:00 Acetaminophen (Tylenol Liquid) 650 mg Q6H PRN PO PAIN LEVEL 1-3 OR FEVER; Start 03/02/19 at 14:00 Morphine Sulfate (morphine) 2 mg Q4H PRN IV PAIN LEVEL 7-10; Start 03/02/19 at 14:00 Famotidine (Pepcid Iv) 20 mg DAILY IV Last administered on 03/02/19at 15:33; Admin Dose 20 MG; Start 03/02/19 at 14:30 Enoxaparin Sodium (Lovenox) 30 mg DAILY SC ; Start 03/03/19 at 09:00 Sodium Bicarbonate 100 meq/Dextrose 1,000 ml @ 100 mls/hr Q10H IV Last administered on 03/03/19at 03:29; Admin Dose 100 MLS/HR; Start 03/02/19 at 15:30 Clonidine (Catapres) 0.2 mg Q6H PRN PO ELEVATED BLOOD PRESSURE; Start 03/02/19 at 18:00 Insulin Aspart (Novolog Insulin Pen) NOVOLOG *MODERATE* ALGORI... Q4 SC ; Start 03/03/19 at 01:00 Hydralazine HCl (Apresoline) 10 mg Q4H PRN IV SBP more than 150 mm hg ; Start 03/02/19 at 23:38 Fentanyl 100 ml @ 2.5 mls/hr TITRATE IV ; Start 03/03/19 at 09:30 ENRIQUETA HUNG MD Mar 03, 2019 10:05
[2019-03-03] MEDS: FAMOTIDINE 20 MG INJ IV SCH (10:41)
[2019-03-03] MEDS: CITRIC ACID/NA CITRATE 30 ML CUP NGT SCH ×3 (12:23→20:33)
[2019-03-03] MEDS ORDERED: INSULIN REGULAR, HUMAN 100 UNIT/1 ML 3ML VIAL IVP STA (12:43)
[2019-03-03] MEDS: DEXTROSE 50% 50 ML SYRINGE IV PRN ×2 (13:43→14:44)
[2019-03-03] MEDS ORDERED: NORepinephrine 8MG/250 ML (PMX 250 ML ONE (14:03)
[2019-03-03] MEDS: NORepinephrine 8MG/250 ML (PMX 250 ML IV SCH (14:15)
[2019-03-03] MEDS ORDERED: NA BICARBONATE 8.4% 50 ML SYG IV STA (14:54)
[2019-03-03] MEDS ORDERED: NA POLYST SULFON 15 GM/60 ML BTL PO SCH (15:00)
[2019-03-03] MEDS ORDERED: GLUCOSE GEL 15 GRAM TUBE PO PRN ×2 (15:30)
[2019-03-03] MEDS ORDERED: DEXTROSE 50% 50 ML SYRINGE IV PRN ×2 (15:30)
[2019-03-03] MEDS ORDERED: GLUCAGON 1 MG INJ IM PRN (15:30)
[2019-03-03] MEDS ORDERED: GLUCOSE GEL 15 GRAM TUBE BUCCAL PRN (15:30)
[2019-03-03] MEDS ORDERED: VANCOMYCIN IV PER PHARMACY XX SCH (17:30)
[2019-03-03] MEDS: SOD CHLORIDE 0.9% 1,000 ML IV SCH (20:28)
[2019-03-03] MEDS: MEROPENEM 500MG/50 ML (PMX) 50 ML IVPB SCH (20:28)
[2019-03-03] MEDS ORDERED: ALBUMIN HUMAN 25% 50 ML IV ONE (20:30)
[2019-03-03] MEDS ORDERED: VANCOMYCIN 1.5 GM/NS 250 ML 250 ML IVPB SCH (20:30)
[2019-03-03] MEDS ORDERED: FUROSEMIDE 20 MG INJ IV ONE (20:30)
[2019-03-03] MEDS ORDERED: MEROPENEM 1 GM/50ML(PMX) 50 ML IVPB SCH (21:00)
[2019-03-03] MEDS ORDERED: VANCOMYCIN 1.5 GM in SOD CHLORIDE 0.9% 250 ML IVPB ONE (21:30)
[2019-03-04] VITALS (69 sets, daily range): BP systolic 93–132; BP diastolic 29–100; PULSE 74–92; RESP 16–29
[2019-03-04] MEDS: INSULIN ASPART [NOVOLOG] 3 ML PEN SC SCH ×2 (01:00→04:36)
[2019-03-04] MEDS: FENTAnyl (DRIP) 1000 mcg/100mL 100 ML IV SCH (02:26)
--- NOTE | 2019-03-04 03:49 | CONS ---
DATE OF ADMISSION: 03/02/2019 DATE OF CONSULTATION: 03/03/2019 TYPE OF CONSULTATION: Infectious Disease. REASON FOR CONSULTATION: Antibiotic management. HISTORY OF PRESENT ILLNESS: Dipika Moctezuma is an unfortunate 79-year-old female who comes in with hypotension and diarrhea. 1. The patient has chronic diastolic congestive heart failure. 2. COPD. 3. Hyperlipidemia. 4. Hypothyroidism. 5. Chronic renal disease. 6. Peripheral vascular disease. 7. Bilateral lower extremity wounds. 8. Parkinson's disease. She was brought in by ambulance from home due to low systolic blood pressur e in the 80s. She has a history of dementia and her code status is unclear. PAST MEDICAL HISTORY: Positive for bilateral cataract surgeries. 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 She has mild Parkinson's disease along with all the other proble ms that were previously outlined. The patient has had diarrhea since yesterday. PHYSICAL EXAMINATION: GENERAL: On admission, she was afebrile, blood pressure was 90/55. VITAL SIGNS: Stable. SKIN: Without generalized rash. HEENT: Within normal limits. NECK: Supple. LYMPH NODES: None palpable. CHEST: Decreased breath sounds at the bases with bradycardia. HEART: Without murmur or gallop. ABDOMEN: Soft, nontender, without organosplenomegaly or masses. EXTREMITIES: Without cyanosis, clubbing, or edema. Bilateral lower extremity 3+ edema with erythema up to the upper shins or anterior tibial areas, skin breakdown with leaking of clear fluid secondary to poor venous return. RECTAL AND GENITAL: Deferred. NEUROLOGIC: No focal neurological abnormalities. ANCILLARY LABORATORY DATA: White count is 8.7, H and H 13.1 and 41.9, platelet count 119,000. BUN a nd creatinine 168/3.2, so she has significant renal insufficiency and failure. With her 8.7 white co unt, she has 60% neutrophils and 22% bands consistent with a left shift and with infection. The shay ent had thrombocytopenia, elevated BUN and creatinine. She had hyperkalemia with a potassium of 7.3. She is acidotic with a CO2 of 12, chloride of 116. Sodium of 142. Chest x-ray showed no acute abn ormalities. Dr. Enriqueta Cordoba was asked to see the patient as well for nephrology. The patient has symptomatic b radycardia, hyperkalemia, renal failure, also evidence of pancreatitis. She has a white count today of 10,000. Her urinalysis showed 3+ leukocyte esterase, greater than 182 white cells per high-power field, consistent with significant urinary tract infection. Blood cultur es and urine cultures though initially were negative with the cath urine. I do not see her amylase. She had a PICC line insertion today. Renal ultrasound shows no evidence of hydronephrosis. She has a single cyst in the right kidney. NG tube was placed. Cabrera catheter is present. NG tube, Cabrera c atheter, elevated right hemidiaphragm. Chest x-ray: Endotracheal tube is in place. Right-sided PICC line, ET, NG tube, increased right infrahilar consolidation pneumonia, slightly incr eased interstitial edema, minimal right pleural effusion. IMPRESSION AND PLAN: The patient appears to be septic at this point. She was transferred down to [facility] intensive care unit. She should be on vancomycin and probably meropenem. I will dictate my findin gs to Dr. Bonilla, Dr. Cowart. Dictated By: KRISTOPHER TAVARES MD, JD/NTS Conf#: [id number] DID#: [id number] CC: ENRIQUETA CORDOBA MD; VERNON COWART MD;*[facility]*
[2019-03-04] MEDS: SODIUM BICARBONATE (IV ADD) 100 MEQ in DEXTROSE 5% 1,000 ML IV SCH (05:17)
[2019-03-04] MEDS: SOD CHLORIDE 0.9% 1,000 ML IV SCH ×2 (08:18→16:00)
--- NOTE | 2019-03-04 08:30 | PQ ---
Date/Time of Note Date/Time of Note DATE: 03/04/19 TIME: 08:[address] Cowart, A review of the medical record found a need for documentation clarification. patient admitted with hypotension and altered mental status, per documentation in ID consultation notes patient has sepsis as well as UTI. per documentation in nephrology consultation notes patient has septic shock. patient is being treated with IV Vancomycin and Meropenem. patient is also on Noepinephrine with blood pressure 89/55 on admission. please specify if you agree with [facility] consultant assessm ent. Thank you Please clarify a diagnosis being treated. To facilitate accurate and complete coding, please rena ( x ) the suspected diagnosis that apply: ( ) Sepsis with septic shock ( X ) sepsis without septic shock ( ) SIRS ( ) Other Please provide your response by clicking edit document,make your choice (x ) , click ok/save and finally click sign. You may alsodocument your responseinyour progress notes. Thank you for your time. Roni ORTABS,CCS,CCDS Clinical Associate Sales Health Information Management, CDI and Coding Services [phone] Room # 1525 - [address] [address] RONI PEMBERTON Mar 04, 2019 08:30 VERNON COWART Mar 04, 2019 13:28
--- NOTE | 2019-03-04 08:33 | PQ ---
Date/Time of Note Date/Time of Note DATE: 03/04/19 TIME: 08:[address] Cowart , A review of the medical record found a need for documentation clarification. Altered mental status secondary to GUY is documented in progress note and in consultation notes altered mental status secondary to sepsis. please further specify the diagnosis of altered mental status in your notes. Thank you Please clarify a diagnosis being treated. To facilitate accurate and complete coding, please rena ( x ) the suspected diagnosis that apply: ( X ) Metabolic Encephalopathy ( ) Toxic Encephalopathy ( ) Unspecified Encephalopathy ( ) Other Please provide your response by clicking edit document,make your choice (x ) , click ok/save and finally click sign. You may alsodocument your responseinyour progress notes. Thank you for your time. Roni ORTABS,CCS,CCDS Clinical Acid Bleacher Health Information Management, CDI and Coding Services Room # 1525 - Coding [address] [address] RONI PEMBERTON Mar 04, 2019 08:33 VERNON COWART Mar 04, 2019 13:29
--- NOTE | 2019-03-04 08:53 | CONS ---
Assessment/Plan Assessment/Plan Assessment/Plan (Daily) Ventilator setting; AC of 18, tidal volume 500, PEEP of 5, 30% FiO2. Patient is currently on fentanyl 25 mics per hour. Levophed 2 mics per minute. Assessment and recommendations; 1. Patient admitted with altered mental status due to metabolic encephalopathy with worsening renal function and hyperkalemia. Patient required intubation yesterday for respiratory failure. 2. Bilateral lower extremity cellulitis. Currently on appropriate antimicrobial regimen. 3. Interval correction of hyperkalemia. 4. Acute on chronic renal insufficiency. Serum creatinine is improving with hydration. 5. Anemia and severe thrombocytopenia. 6. Peripheral vascular disease. 7. History of Parkinson's disease. Continue current supportive care. Decrease tidal volume to 400 mL. Obtain follow-up chest x-ray in 24 hours. Monitor renal function. Antibiotics per ID recommendations. If the patient continues to do well she will be given a sedation vacation in 24 hours to assess mental status and to assess her for possible extubation. 35 minutes of critical care time was spent evaluating patient. Consultation Date/Type/Reason Admit Date/Time Mar 02, 2019 at 13:39 Initial Consult Date 03/03/19 Type of Consult Pulmonary/critical care Patient is a 79-year-old female who was brought in by family to the hospital with worsening overall mental status and failure to thrive. Patient was transferred to ICU. Patient was on 100% nonrebreather and I was asked to evaluate the patient. The patient was completely unresponsive and was showing tachypnea. It was decided to electively intubate the patient which was done readily at bedside. Patient was unable to give any history by herself whatsoever. History is been obtained from medical records. Past medical history; 1. History of multiple admissions to hospital for various reasons. 2. History of Parkinson's disease. 3. Hypothyroidism. 4. CHF. 5. COPD. 6. Chronic renal insufficiency. 7. Severe peripheral vascular disease. Medications; reviewed. Allergies; none. Social history; patient has a history of smoking. Family history; patient has a supportive niece. Lives at home. Occupational history; not available. Review of system; unable to be obtained. General exam; elderly woman, unresponsive, lethargic. Tachypneic. On 100% nonrebreather mask. Requesting Provider: LISA MATA MD Date/Time of Note DATE: 03/04/19 TIME: 08:50 24 HR Interval Summary Free Text/Dictation Patient's condition is critical. Had to be intubated yesterday morning for respiratory failure. Patient has remained mildly hypotensive requiring low-dose Levophed. General exam; elderly woman, orally intubated, sedated, currently in no distress. Exam/Review of Systems Exam Vitals Vital Signs Date Temp Pulse Resp B/P (MAP) Pulse Ox O2 O2 Flow FiO2 Time Delivery Rate 03/04/19 84 20 110/46 99 06:30 (67) 03/04/19 Mechanical 06:00 Ventilator 03/04/19 30 05:00 03/04/19 98.2 04:00 03/03/19 15.0 05:48 Intake and Output 03/03/19 03/03/19 03/04/19 1515:00 23:00 07:00 IntakeIntake Total 603.75 ml 1263.125 ml 1223.35 ml OutputOutput Total 645 ml 495 ml BalanceBalance 603.75 ml 618.125 ml 728.35 ml Exam H ENT exam; supple neck, no JVD. No lymphadenopathy. Midline trachea. No thyromegaly. Orally intubated. Patient has a multiple carious teeth. No neck masses. Pupils are small bilaterally. Chest exam; diminished but clear breath sounds. S1-S2 audible, no murmurs. Regular rhythm. Abdomen exam; soft, nondistended. No organomegaly. Bowel sounds audible. Extremity exam; 2+ pitting edema in lower extremities with bilateral lower extremity cellulitis. 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 Results Result Diagram: 03/04/19 0415 03/04/19 0415 Results 24hrs Laboratory Tests Test 03/03/19 09:00 03/03/19 10:00 03/03/19 10:26 03/03/19 11:30 Urine Color YELLOW Urine Clarity TURBID A Urine pH 5.0 Urine Specific 1.014 [place] Urine Ketones NEGATIVE Urine Nitrite NEGATIVE Urine Bilirubin NEGATIVE Urine NEGATIVE Urobilinogen Urine Leukocyte 2+ H Esterase Urine 109 H Microscopic RBC Urine > 182 H Microscopic WBC Urine Squamous MANY A Epithelial Cells Urine Renal FEW A Epithelial Cells Urine Bacteria MODERATE Urine Mucus FEW A Urine Yeast FEW A (Budding) Urine Hemoglobin 3+ H Urine Osmolality 371 Urine Random 22 L Sodium Urine Glucose NEGATIVE Urine Total 2+ H Protein Blood Gas Blood arterial Blood arterial Specimen Source Arterial Blood 03/03/2019 10:06 03/03/2019 11:30 Date Drawn :46 AM :28 AM Arterial Blood 7.363 7.406 pH (Temp corrected) Arterial Blood 29.9 L 28.7 L pCO2 (Temp correct) Arterial Blood 16.6 L 17.6 L HCO3 Arterial Blood -7.6 L -5.9 L Base Excess Arterial Blood 98.8 98.7 Oxygen Saturatio n Jewel Test ACCEPTAB ACCEPTAB Arterial Blood Right Radial Right Radial Gas Puncture Site Arterial 0.3 0.3 Blood Carboxyhem oglobin Arterial Blood 0.3 0.2 Methemoglobin Oxyhemoglobin 98.2 98.2 Percent Blood Gas 37.0 37.0 Temperature Blood Gas 18.0 18.0 Respiration Rate Blood Gas Actual 18 18 Respiration Rate Blood Gas VENT - AC VENT - AC Modality FiO2 100.0 75.0 Blood Gas Tidal 500.0 500.0 Volume Blood Gas Low 5.0 5.0 PEEP Setting Blood Gas TM TM Notified Whom Blood Gas 03/03/2019 10:24 03/03/2019 11:39 Notified Time :20 AM :16 AM Bedside Glucose 114 Arterial Blood 288.1 H pO2 (Temp corrected) Blood Gas A-a O2 216.2 H Differential Test 03/03/19 13:00 03/03/19 14:18 03/03/19 14:38 03/03/19 15:09 Bedside Glucose 114 127 78 67 L Test 03/03/19 15:25 03/03/19 15:28 03/03/19 18:06 03/03/19 21:04 Sodium Level 145 H Potassium Level 4.5 Chloride Level 117 H Carbon Dioxide 16 L Level Anion Gap 12 Blood Urea 145 H Nitrogen Creatinine 3.36 H Est Glomerular Filtrat Rate mL/min Glucose Level 82 Calcium Level 8.2 L Magnesium Level 3.7 H Bedside Glucose 84 97 122 Test 03/03/19 23:30 03/04/19 01:11 03/04/19 04:15 03/04/19 04:27 Urine Random 83 Sodium Urine Random 27.0 Potassium Bedside Glucose 132 126 White Blood 8.8 Count Red Blood Count 3.11 L Hemoglobin 9.5 L Hematocrit 28.9 L Mean Corpuscular 92.9 Volume Mean Corpuscular 30.5 Hemoglobin Mean Corpuscular 32.9 Hemoglobin Mirella nt Red Cell 16.2 H Distribution Width Platelet Count 78 #L Mean Platelet 11.7 H Volume Immature 4.300 H Granulocytes % Neutrophils % Segmented 63 Neutrophils % (Manual) Band Neutrophils 18 H % (Manual) Lymphocytes % Lymphocytes % 11 L (Manual) Monocytes % Monocytes % 6 (Manual) Eosinophils % Basophils % Metamyelocytes % 1 H (manual) Myelocytes % 1 H (Manual) Nucleated Red 6 H Blood Cells % Immature 0.380 H Granulocytes # Neutrophils # Neutrophils # 5.7 (Manual) Band Neutrophils 1.5 H # Lymphocytes 0.9 (Manual) Lymphocytes # Monocytes # Monocytes # 0.5 (Manual) Eosinophils # Basophils # Metamyelocytes # 0.0 Myelocytes # 0.0 Nucleated Red Blood Cells # Platelet DECREASED Estimate Giant Platelets 3 H Hypochromasia 1+ Anisocytosis 1+ Microcytosis 1+ Sodium Level 148 H Potassium Level 3.1 L Chloride Level 116 H Carbon Dioxide 24 Level Anion Gap 8 Blood Urea 130 H Nitrogen Creatinine 2.59 H Est Glomerular Filtrat Rate mL/min Glucose Level 116 Calcium Level 6.5 L Phosphorus Level 5.4 #H Magnesium Level 3.2 H Amylase Level 62 Lipase 194 Test 03/04/19 04:35 03/04/19 07:00 Lactic Acid 1.3 Level Blood Gas Blood arterial Specimen Source Arterial Blood 03/04/2019 7:00:4 Date Drawn 4 AM Arterial Blood 7.526 H pH (Temp corrected) Arterial Blood 33.6 L pCO2 (Temp correct) Arterial Blood 77.7 L pO2 (Temp corrected) Arterial Blood 27.2 H HCO3 Arterial Blood 4.5 H Base Excess Arterial Blood 95.9 Oxygen Saturatio n Jewel Test ACCEPTAB Arterial Blood Right Radial Gas Puncture Site Arterial 0.6 Blood Carboxyhem oglobin Arterial Blood 0.3 Methemoglobin Blood Gas A-a O2 96.7 H Differential Oxyhemoglobin 95.0 Percent Blood Gas 37.0 Temperature Blood Gas 18.0 Respiration Rate Blood Gas Actual 18 Respiration Rate Blood Gas VENT - AC Modality FiO2 30.0 Blood Gas Tidal 500.0 Volume Blood Gas Low 5.0 PEEP Setting Blood Gas TM Notified Whom Blood Gas 03/04/2019 7:10:2 Notified Time 1 AM Medications Medication Current Medications Dextrose (D50w Syringe) ONCE PRN IV DECREASED GLUCOSE Last administered on 03/02/19at 19:05; Admin Dose 50 ML; Start 03/02/19 at 14:00 Ondansetron HCl (Zofran Inj) 4 mg Q6H PRN IV NAUSEA AND/OR VOMITING; Start 03/02/19 at 14:00 Acetaminophen (Tylenol Liquid) 650 mg Q6H PRN PO PAIN LEVEL 1-3 OR FEVER; Start 03/02/19 at 14:00 Morphine Sulfate (morphine) 2 mg Q4H PRN IV PAIN LEVEL 7-10; Start 03/02/19 at 14:00 Famotidine (Pepcid Iv) 20 mg DAILY IV Last administered on 03/03/19at 10:41; Admin Dose 20 MG; Start 03/02/19 at 14:30 Enoxaparin Sodium (Lovenox) 30 mg DAILY SC ; Start 03/03/19 at 09:00 Sodium Bicarbonate 100 meq/Dextrose 1,000 ml @ 100 mls/hr Q10H IV Last administered on 03/04/19at 05:17; Admin Dose 100 MLS/HR; Start 03/02/19 at 15:30 Clonidine (Catapres) 0.2 mg Q6H PRN PO ELEVATED BLOOD PRESSURE; Start 03/02/19 at 18:00 Hydralazine HCl (Apresoline) 10 mg Q4H PRN IV SBP more than 150 mm hg ; Start 03/02/19 at 23:38 Fentanyl 100 ml @ 2.5 mls/hr TITRATE IV Last administered on 03/04/19at 02:26; Admin Dose 2.5 MLS/HR; Start 03/03/19 at 09:30 Citric Acid/ Sodium Citrate (Bicitra) 30 ml TID NGT Last administered on 03/03/19at 20:33; Admin Dose 30 ML; Start 03/03/19 at 10:30 Norepinephrine 250 ml @ 1.875 mls/ hr TITRATE IV Last administered on 03/03/19at 14:15; Admin Dose 3.75 MLS/HR; Start 03/03/19 at 14:00 IV Flush (NS 10 ml) 10 ml Q8 PRN IV IV PROTOCOL; Start 03/03/19 at 15:30 Miscellaneous Information 1 ea NOTE XX ; Start 03/03/19 at 15:30 Glucose (Glutose) 15 gm Q15M PRN PO DECREASED GLUCOSE; Start 03/03/19 at 15:30 Glucose (Glutose) 22.5 gm Q15M PRN PO DECREASED GLUCOSE; Start 03/03/19 at 15:30 Dextrose (D50w Syringe) 25 ml Q15M PRN IV DECREASED GLUCOSE; Start 03/03/19 at 15:30 Dextrose (D50w Syringe) 50 ml Q15M PRN IV DECREASED GLUCOSE; Start 03/03/19 at 15:30 Glucagon (Glucagen) 1 mg Q15M PRN IM DECREASED GLUCOSE; Start 03/03/19 at 15:30 Glucose (Glutose) 15 gm Q15M PRN BUCCAL DECREASED GLUCOSE; Start 03/03/19 at 15:30 Vancomycin HCl (Vanco Iv Per Pharmacy) VANCOMYCIN PER PHARMACY PER PROTOCOL XX ; Start 03/03/19 at 17:30 Sodium Chloride 1,000 ml @ 70 mls/hr [id number] IV Last administered on 03/03/19at 20:28; Admin Dose 70 MLS/HR; Start 03/03/19 at 18:00 Meropenem/Sodium Chloride 50 ml @ 100 mls/hr Q12H IVPB Last administered on 03/03/19at 20:28; Admin Dose 100 MLS/HR; Start 03/03/19 at 20:00 Insulin Aspart (Novolog Insulin Pen) NOVOLOG *MODERATE* ALGORI... Q6 SC ; Start 03/04/19 at 12:00 GABRIEL PRESLEY Mar 04, 2019 08:53
[2019-03-04] MEDS ORDERED: POTASSIUM CHLORIDE 50 ML IVPB ONE ×2 (09:00→17:30)
[2019-03-04] MEDS: FAMOTIDINE 20 MG INJ IV SCH (09:01)
[2019-03-04] MEDS: MEROPENEM 500MG/50 ML (PMX) 50 ML IVPB SCH ×2 (09:01→20:56)
[2019-03-04] MEDS: CITRIC ACID/NA CITRATE 30 ML CUP NGT SCH ×3 (09:01→20:56)
[2019-03-04] MEDS: ENOXAPARIN 30 MG/0.3 ML SYG SC SCH (09:03)
[2019-03-04] MEDS ORDERED: CALCIUM GLUCONATE 10% 1 GM in DEXTROSE 5% 100 ML IVPB ONE (09:30)
[2019-03-04] MEDS ORDERED: INSULIN ASPART [NOVOLOG] 3 ML PEN SC SCH (12:00)
--- NOTE | 2019-03-04 12:54 | CONS ---
Assessment/Plan Assessment/Plan Assessment/Plan (Daily) 1. acute hyperkalemia with K 7.3 on admission 2. acute kidney injury on CKD III 2/2 ischemic ATN + prerenal azotemia 3. Severe metabolic acidosis 4. septic shock on admission unclear source at this time 5. H/o COPD 6. H/o diastolic Heart failure with Preserved EF 7. H/o Hypothyroidisk 8. H/o Parkinoson's disease 9. h/o HTN 10. acute hypoxic respiratory failure intubate on ventilator Plan: Ventilator care pulmonary pt is in post ATN diuresis, monitor electrolytes and replace agreesively IV abx Meropenem and Vancomycin< renally dose all abx and monitoe electrolytes BUN/Cr 126/2.83, Na 150,K 3.0, HCo3 30- stop bicarboante drip , IVF NS with KCL I had discusesd with patient Niece about Pt condition and Explained in her detail about need for dialysis, Due to patient age and comorbidities they decided not have to have HD at this time, they would like to treat c onservatively will follow up Consultation Date/Type/Reason Admit Date/Time Mar 02, 2019 at 13:39 Initial Consult Date 03/03/19 Type of Consult NEPHROLOGY Requesting Provider: LISA MATA MD Date/Time of Note DATE: 03/04/19 TIME: 12:54 Exam/Review of Systems Exam Vitals Vital Signs Date Temp Pulse Resp B/P (MAP) Pulse Ox O2 O2 Flow FiO2 Time Delivery Rate 03/04/19 90 12:00 03/04/19 28 100 30 11:16 03/04/19 113/45 Mechanical 10:00 (67) Ventilator 03/04/19 99.1 08:00 03/03/19 15.0 05:48 Intake and Output 03/03/19 03/03/19 03/04/19 1515:00 23:00 07:00 IntakeIntake Total 603.75 ml 1263.125 ml 1399.60 ml OutputOutput Total 645 ml 495 ml BalanceBalance 603.75 ml 618.125 ml 904.60 ml Exam Constitutional: intubated on ventilator, Non verbal Respiratory: congested cough, crackles/rales, diminished breath sounds Cardiovascular: regular rate and rhythm, nl pulses Gastrointestinal: soft, non-tender, other (non distended, BS+) Musculoskeletal: muscle weakness, swelling (1+ edema ) Neurological: sedated on ventilator Lymph: nl lymph nodes Results Result Diagram: 03/04/19 0415 03/04/19 0415 Results 24hrs Laboratory Tests Test 03/03/19 13:00 03/03/19 14:18 03/03/19 14:38 03/03/19 15:09 Bedside Glucose 114 127 78 67 L Test 03/03/19 15:25 03/03/19 15:28 03/03/19 18:06 03/03/19 21:04 Sodium Level 145 H Potassium Level 4.5 Chloride Level 117 H Carbon Dioxide 16 L Level Anion Gap 12 Blood Urea 145 H Nitrogen Creatinine 3.36 H Est Glomerular Filtrat Rate mL/min Glucose Level 82 Calcium Level 8.2 L Magnesium Level 3.7 H Bedside Glucose 84 97 122 Test 03/03/19 23:30 03/04/19 01:11 03/04/19 04:15 03/04/19 04:27 Urine Random 83 Sodium Urine Random 27.0 Potassium Bedside Glucose 132 126 White Blood Count 8.8 Red Blood Count 3.11 L Hemoglobin 9.5 L Hematocrit 28.9 L Mean Corpuscular 92.9 Volume Mean Corpuscular 30.5 Hemoglobin Mean Corpuscular 32.9 Hemoglobin Concen t Red Cell 16.2 H Distribution Width Platelet Count 78 #L Mean Platelet 11.7 H Volume Immature 4.300 H Granulocytes % Neutrophils % Segmented 63 Neutrophils % (Manual) Band Neutrophils 18 H % (Manual) Lymphocytes % Lymphocytes % 11 L (Manual) Monocytes % Monocytes % 6 (Manual) Eosinophils % Basophils % Metamyelocytes % 1 H (manual) Myelocytes % 1 H (Manual) Nucleated Red 6 H Blood Cells % Immature 0.380 H Granulocytes # Neutrophils # Neutrophils # 5.7 (Manual) Band Neutrophils 1.5 H # Lymphocytes 0.9 (Manual) Lymphocytes # Monocytes # Monocytes # 0.5 (Manual) Eosinophils # Basophils # Metamyelocytes # 0.0 Myelocytes # 0.0 Nucleated Red Blood Cells # Platelet Estimate DECREASED Giant Platelets 3 H Hypochromasia 1+ Anisocytosis 1+ Microcytosis 1+ Sodium Level 148 H Potassium Level 3.1 L Chloride Level 116 H Carbon Dioxide 24 Level Anion Gap 8 Blood Urea 130 H Nitrogen Creatinine 2.59 H Est Glomerular Filtrat Rate mL/min Glucose Level 116 Calcium Level 6.5 L Phosphorus Level 5.4 #H Magnesium Level 3.2 H Amylase Level 62 Lipase 194 Test 03/04/19 04:35 03/04/19 07:00 03/04/19 12:40 Lactic Acid Level 1.3 Blood Gas Blood arterial Specimen Source Arterial Blood 03/04/2019 7:00:44 Date Drawn AM Arterial Blood pH 7.526 H (Temp corrected) Arterial Blood 33.6 L pCO2 (Temp correct) Arterial Blood 77.7 L pO2 (Temp corrected) Arterial Blood 27.2 H HCO3 Arterial Blood 4.5 H Base Excess Arterial Blood 95.9 Oxygen Saturation Jewel Test ACCEPTAB Arterial Blood Right Radial Gas Puncture Site Arterial 0.6 Blood Carboxyhemo globin Arterial Blood 0.3 Methemoglobin Blood Gas A-a O2 96.7 H Differential Oxyhemoglobin 95.0 Percent Blood Gas 37.0 Temperature Blood Gas 18.0 Respiration Rate Blood Gas Actual 18 Respiration Rate Blood Gas VENT - AC Modality FiO2 30.0 Blood Gas Tidal 500.0 Volume Blood Gas Low 5.0 PEEP Setting Blood Gas TM Notified Whom Blood Gas 03/04/2019 7:10:21 Notified Time AM Bedside Glucose 144 Medications Medication Current Medications Dextrose (D50w Syringe) ONCE PRN IV DECREASED GLUCOSE Last administered on 03/02/19at 19:05; Admin Dose 50 ML; Start 03/02/19 at 14:00 Ondansetron HCl (Zofran Inj) 4 mg Q6H PRN IV NAUSEA AND/OR VOMITING; Start 03/02/19 at 14:00 Acetaminophen (Tylenol Liquid) 650 mg Q6H PRN PO PAIN LEVEL 1-3 OR FEVER; Start 03/02/19 at 14:00 Morphine Sulfate (morphine) 2 mg Q4H PRN IV PAIN LEVEL 7-10; Start 03/02/19 at 14:00 Famotidine (Pepcid Iv) 20 mg DAILY IV Last administered on 03/04/19at 09:01; Admin Dose 20 MG; Start 03/02/19 at 14:30 Enoxaparin Sodium (Lovenox) 30 mg DAILY SC Last administered on 03/04/19at 09:03; Admin Dose 30 MG; Start 03/03/19 at 09:00 Clonidine (Catapres) 0.2 mg Q6H PRN PO ELEVATED BLOOD PRESSURE; Start 03/02/19 at 18:00 Hydralazine HCl (Apresoline) 10 mg Q4H PRN IV SBP more than 150 mm hg ; Start 03/02/19 at 23:38 Fentanyl 100 ml @ 2.5 mls/hr TITRATE IV Last administered on 03/04/19at 02:26; Admin Dose 2.5 MLS/HR; Start 03/03/19 at 09:30 Citric Acid/ Sodium Citrate (Bicitra) 30 ml TID NGT Last administered on 03/04/19at 09:01; Admin Dose 30 ML; Start 03/03/19 at 10:30 Norepinephrine 250 ml @ 1.875 mls/ hr TITRATE IV Last administered on 03/03/19at 14:15; Admin Dose 3.75 MLS/HR; Start 03/03/19 at 14:00 IV Flush (NS 10 ml) 10 ml Q8 PRN IV IV PROTOCOL; Start 03/03/19 at 15:30 Miscellaneous Information 1 ea NOTE XX ; Start 03/03/19 at 15:30 Glucose (Glutose) 15 gm Q15M PRN PO DECREASED GLUCOSE; Start 03/03/19 at 15:30 Glucose (Glutose) 22.5 gm Q15M PRN PO DECREASED GLUCOSE; Start 03/03/19 at 15:30 Dextrose (D50w Syringe) 25 ml Q15M PRN IV DECREASED GLUCOSE; Start 03/03/19 at 15:30 Dextrose (D50w Syringe) 50 ml Q15M PRN IV DECREASED GLUCOSE; Start 03/03/19 at 15:30 Glucagon (Glucagen) 1 mg Q15M PRN IM DECREASED GLUCOSE; Start 03/03/19 at 15:30 Glucose (Glutose) 15 gm Q15M PRN BUCCAL DECREASED GLUCOSE; Start 03/03/19 at 15:30 Vancomycin HCl (Vanco Iv Per Pharmacy) VANCOMYCIN PER PHARMACY PER PROTOCOL XX ; Start 03/03/19 at 17:30 Sodium Chloride 1,000 ml @ 100 mls/hr Q10H IV Last administered on 03/03/19at 20:28; Admin Dose 70 MLS/HR; Start 03/03/19 at 18:00 Meropenem/Sodium Chloride 50 ml @ 100 mls/hr Q12H IVPB Last administered on 03/04/19at 09:01; Admin Dose 100 MLS/HR; Start 03/03/19 at 20:00 Insulin Aspart (Novolog Insulin Pen) NOVOLOG *MODERATE* ALGORI... Q6 SC ; Start 03/04/19 at 12:00 Miscellaneous Information (*Rx Drug Level Order Reminder*) VANCO RANDOM 0500 ONCE XX ; Start 03/05/19 at 05:00; Stop 03/05/19 at 05:01 Mupirocin (Bactroban) 1 applic BID TOP ; Start 03/04/19 at 13:30; Stop 03/14/19 at 13:29 Fluconazole (Diflucan) 100 mg DAILY PO ; Start 03/04/19 at 13:00; Status UNV Mupirocin (Bactroban) 1 applic BID TOP ; Start 03/04/19 at 21:00; Status UNV ENRIQUETA HUNG MD Mar 04, 2019 12:54
[2019-03-04] MEDS: FLUCONAZOLE 100 MG TAB PO SCH (13:32)
--- NOTE | 2019-03-04 13:58 | PN ---
Date/Time of Note Date/Time of Note DATE: 03/04/19 TIME: 13:53 Assessment/Plan VTE Prophylaxis Risk score (from [facility])>0 risk: 9 SCD applied (from [facility]): No SCD contraindicated: other Pharmacological prophylaxis: LMWH Lines/Catheters IV C[facility]ter Type (from [facility]): PICC Line Central line still needed: Yes Urinary Cath still in place: Yes Reason Cath still needed: skin wounds contaminated by urine Assessment/Plan Hospital Course 1) hyperkalemia - treat - secondary to renal failure - monitor 2) renal failure - appreciate nephrology help - patient may need to be started on hemodialysis 3) altered level of consciousness - probably seconardary to #2 - intubated for airway protection Result Diagram: 03/04/19 0415 03/04/19 0415 Results 24hrs Laboratory Tests Test 03/03/19 14:18 03/03/19 14:38 03/03/19 15:09 03/03/19 15:25 Bedside Glucose 127 78 67 L Sodium Level 145 H Potassium Level 4.5 Chloride Level 117 H Carbon Dioxide 16 L Level Anion Gap 12 Blood Urea 145 H Nitrogen Creatinine 3.36 H Est Glomerular Filtrat Rate mL/min Glucose Level 82 Calcium Level 8.2 L Magnesium Level 3.7 H Test 03/03/19 15:28 03/03/19 18:06 03/03/19 21:04 03/03/19 23:30 Bedside Glucose 84 97 122 Urine Random 83 Sodium Urine Random 27.0 Potassium Test 03/04/19 01:11 03/04/19 04:15 03/04/19 04:27 03/04/19 04:35 Bedside Glucose 132 126 White Blood Count 8.8 Red Blood Count 3.11 L Hemoglobin 9.5 L Hematocrit 28.9 L Mean Corpuscular 92.9 Volume Mean Corpuscular 30.5 Hemoglobin Mean Corpuscular 32.9 Hemoglobin Concen t Red Cell 16.2 H Distribution Width Platelet Count 78 #L Mean Platelet 11.7 H Volume Immature 4.300 H Granulocytes % Neutrophils % Segmented 63 Neutrophils % (Manual) Band Neutrophils 18 H % (Manual) Lymphocytes % Lymphocytes % 11 L (Manual) Monocytes % Monocytes % 6 (Manual) Eosinophils % Basophils % Metamyelocytes % 1 H (manual) Myelocytes % 1 H (Manual) Nucleated Red 6 H Blood Cells % Immature 0.380 H Granulocytes # Neutrophils # Neutrophils # 5.7 (Manual) Band Neutrophils 1.5 H # Lymphocytes 0.9 (Manual) Lymphocytes # Monocytes # Monocytes # 0.5 (Manual) Eosinophils # Basophils # Metamyelocytes # 0.0 Myelocytes # 0.0 Nucleated Red Blood Cells # Platelet Estimate DECREASED Giant Platelets 3 H Hypochromasia 1+ Anisocytosis 1+ Microcytosis 1+ Sodium Level 148 H Potassium Level 3.1 L Chloride Level 116 H Carbon Dioxide 24 Level Anion Gap 8 Blood Urea 130 H Nitrogen Creatinine 2.59 H Est Glomerular Filtrat Rate mL/min Glucose Level 116 Calcium Level 6.5 L Phosphorus Level 5.4 #H Magnesium Level 3.2 H Amylase Level 62 Lipase 194 Lactic Acid Level 1.3 Test 03/04/19 07:00 03/04/19 12:40 Blood Gas Blood arterial Specimen Source Arterial Blood 03/04/2019 7:00:44 Date Drawn AM Arterial Blood pH 7.526 H (Temp corrected) Arterial Blood 33.6 L pCO2 (Temp correct) Arterial Blood 77.7 L pO2 (Temp corrected) Arterial Blood 27.2 H HCO3 Arterial Blood 4.5 H Base Excess Arterial Blood 95.9 Oxygen Saturation Jewel Test ACCEPTAB Arterial Blood Right Radial Gas Puncture Site Arterial 0.6 Blood Carboxyhemo globin Arterial Blood 0.3 Methemoglobin Blood Gas A-a O2 96.7 H Differential Oxyhemoglobin 95.0 Percent Blood Gas 37.0 Temperature Blood Gas 18.0 Respiration Rate Blood Gas Actual 18 Respiration Rate Blood Gas VENT - AC Modality FiO2 30.0 Blood Gas Tidal 500.0 Volume Blood Gas Low 5.0 PEEP Setting Blood Gas TM Notified Whom Blood Gas 03/04/2019 7:10:21 Notified Time AM Bedside Glucose 144 Subjective 24 Hr Interval Summary Free Text/Dictation Patient need to be started on hemodialysis but the family states that she did not want to be on hemodialysis Exam/Review of Systems Exam Vitals Vital Signs Date Temp Pulse Resp B/P (MAP) Pulse Ox O2 O2 Flow FiO2 Time Delivery Rate 03/04/19 90 12:00 03/04/19 28 100 30 11:16 03/04/19 113/45 Mechanical 10:00 (67) Ventilator 03/04/19 99.1 08:00 03/03/19 15.0 05:48 Intake and Output 03/03/19 03/03/19 03/04/19 1515:00 23:00 07:00 IntakeIntake Total 603.75 ml 1263.125 ml 1399.60 ml OutputOutput Total 645 ml 495 ml BalanceBalance 603.75 ml 618.125 ml 904.60 ml Constitutional: well developed Head: normocephalic, atraumatic Neck: supple Respiratory: diminished breath sounds Cardiovascular: regular rate and rhythm Gastrointestinal: soft, non-tender Extremities: normal pulses Results Results 24hrs Laboratory Tests Test 03/03/19 14:18 03/03/19 14:38 03/03/19 15:09 03/03/19 15:25 Bedside Glucose 127 78 67 L Sodium Level 145 H Potassium Level 4.5 Chloride Level 117 H Carbon Dioxide 16 L Level Anion Gap 12 Blood Urea 145 H Nitrogen Creatinine 3.36 H Est Glomerular Filtrat Rate mL/min Glucose Level 82 Calcium Level 8.2 L Magnesium Level 3.7 H Test 03/03/19 15:28 03/03/19 18:06 03/03/19 21:04 03/03/19 23:30 Bedside Glucose 84 97 122 Urine Random 83 Sodium Urine Random 27.0 Potassium Test 03/04/19 01:11 03/04/19 04:15 03/04/19 04:27 03/04/19 04:35 Bedside Glucose 132 126 White Blood Count 8.8 Red Blood Count 3.11 L Hemoglobin 9.5 L Hematocrit 28.9 L Mean Corpuscular 92.9 Volume Mean Corpuscular 30.5 Hemoglobin Mean Corpuscular 32.9 Hemoglobin Concen t Red Cell 16.2 H Distribution Width Platelet Count 78 #L Mean Platelet 11.7 H Volume Immature 4.300 H Granulocytes % Neutrophils % Segmented 63 Neutrophils % (Manual) Band Neutrophils 18 H % (Manual) Lymphocytes % Lymphocytes % 11 L (Manual) Monocytes % Monocytes % 6 (Manual) Eosinophils % Basophils % Metamyelocytes % 1 H (manual) Myelocytes % 1 H (Manual) Nucleated Red 6 H Blood Cells % Immature 0.380 H Granulocytes # Neutrophils # Neutrophils # 5.7 (Manual) Band Neutrophils 1.5 H # Lymphocytes 0.9 (Manual) Lymphocytes # Monocytes # Monocytes # 0.5 (Manual) Eosinophils # Basophils # Metamyelocytes # 0.0 Myelocytes # 0.0 Nucleated Red Blood Cells # Platelet Estimate DECREASED Giant Platelets 3 H Hypochromasia 1+ Anisocytosis 1+ Microcytosis 1+ Sodium Level 148 H Potassium Level 3.1 L Chloride Level 116 H Carbon Dioxide 24 Level Anion Gap 8 Blood Urea 130 H Nitrogen Creatinine 2.59 H Est Glomerular Filtrat Rate mL/min Glucose Level 116 Calcium Level 6.5 L Phosphorus Level 5.4 #H Magnesium Level 3.2 H Amylase Level 62 Lipase 194 Lactic Acid Level 1.3 Test 03/04/19 07:00 03/04/19 12:40 Blood Gas Blood arterial Specimen Source Arterial Blood 03/04/2019 7:00:44 Date Drawn AM Arterial Blood pH 7.526 H (Temp corrected) Arterial Blood 33.6 L pCO2 (Temp correct) Arterial Blood 77.7 L pO2 (Temp corrected) Arterial Blood 27.2 H HCO3 Arterial Blood 4.5 H Base Excess Arterial Blood 95.9 Oxygen Saturation Jewel Test ACCEPTAB Arterial Blood Right Radial Gas Puncture Site Arterial 0.6 Blood Carboxyhemo globin Arterial Blood 0.3 Methemoglobin Blood Gas A-a O2 96.7 H Differential Oxyhemoglobin 95.0 Percent Blood Gas 37.0 Temperature Blood Gas 18.0 Respiration Rate Blood Gas Actual 18 Respiration Rate Blood Gas VENT - AC Modality FiO2 30.0 Blood Gas Tidal 500.0 Volume Blood Gas Low 5.0 PEEP Setting Blood Gas TM Notified Whom Blood Gas 03/04/2019 7:10:21 Notified Time AM Bedside Glucose 144 Medications Medication Current Medications Dextrose (D50w Syringe) ONCE PRN IV DECREASED GLUCOSE Last administered on 02/03 at 19:05; Admin Dose 50 ML; Start 03/02/19 at 14:00 Ondansetron HCl (Zofran Inj) 4 mg Q6H PRN IV NAUSEA AND/OR VOMITING; Start 03/02/19 at 14:00 Acetaminophen (Tylenol Liquid) 650 mg Q6H PRN PO PAIN LEVEL 1-3 OR FEVER; Start 03/02/19 at 14:00 Morphine Sulfate (morphine) 2 mg Q4H PRN IV PAIN LEVEL 7-10; Start 03/02/19 at 14:00 Famotidine (Pepcid Iv) 20 mg DAILY IV Last administered on 03/04/19at 09:01; Admin Dose 20 MG; Start 03/02/19 at 14:30 Enoxaparin Sodium (Lovenox) 30 mg DAILY SC Last administered on 03/04/19at 09:03; Admin Dose 30 MG; Start 03/03/19 at 09:00 Clonidine (Catapres) 0.2 mg Q6H PRN PO ELEVATED BLOOD PRESSURE; Start 03/02/19 at 18:00 Hydralazine HCl (Apresoline) 10 mg Q4H PRN IV SBP more than 150 mm hg ; Start 03/02/19 at 23:38 Fentanyl 100 ml @ 2.5 mls/hr TITRATE IV Last administered on 03/04/19at 02:26; Admin Dose 2.5 MLS/HR; Start 03/03/19 at 09:30 Citric Acid/ Sodium Citrate (Bicitra) 30 ml TID NGT Last administered on 03/04/19at 13:32; Admin Dose 30 ML; Start 03/03/19 at 10:30 Norepinephrine 250 ml @ 1.875 mls/ hr TITRATE IV Last administered on 03/03/19a t 14:15; Admin Dose 3.75 MLS/HR; Start 03/03/19 at 14:00 IV Flush (NS 10 ml) 10 ml Q8 PRN IV IV PROTOCOL; Start 03/03/19 at 15:30 Miscellaneous Information 1 ea NOTE XX ; Start 03/03/19 at 15:30 Glucose (Glutose) 15 gm Q15M PRN PO DECREASED GLUCOSE; Start 03/03/19 at 15:30 Glucose (Glutose) 22.5 gm Q15M PRN PO DECREASED GLUCOSE; Start 03/03/19 at 15:30 Dextrose (D50w Syringe) 25 ml Q15M PRN IV DECREASED GLUCOSE; Start 03/03/19 at 15:30 Dextrose (D50w Syringe) 50 ml Q15M PRN IV DECREASED GLUCOSE; Start 03/03/19 at 15:30 Glucagon (Glucagen) 1 mg Q15M PRN IM DECREASED GLUCOSE; Start 03/03/19 at 15:30 Glucose (Glutose) 15 gm Q15M PRN BUCCAL DECREASED GLUCOSE; Start 03/03/19 at 15:30 Vancomycin HCl (Vanco Iv Per Pharmacy) VANCOMYCIN PER PHARMACY PER PROTOCOL XX ; Start 03/03/19 at 17:30 Sodium Chloride 1,000 ml @ 100 mls/hr Q10H IV Last administered on 03/03/19at 20:28; Admin Dose 70 MLS/HR; Start 03/03/19 at 18:00 Meropenem/Sodium Chloride 50 ml @ 100 mls/hr Q12H IVPB Last administered on 03/04/19at 09:01; Admin Dose 100 MLS/HR; Start 03/03/19 at 20:00 Miscellaneous Information (*Rx Drug Level Order Reminder*) VANCO RANDOM 0500 ONCE XX ; Start 03/05/19 at 05:00; Stop 03/05/19 at 05:01 Mupirocin (Bactroban) 1 applic BID TOP ; Start 03/04/19 at 13:30; Stop 03/14/19 at 13:29 Fluconazole (Diflucan) 100 mg DAILY PO Last administered on 03/04/19at 13:32; Admin Dose 100 MG; Start 03/04/19 at 13:00 VERNON COWART Mar 04, 2019 13:58
--- NOTE | 2019-03-04 14:27 | PN ---
DATE: 03/04/2019 SUBJECTIVE: Patient remains intubated and sedated, off pressors since this morning. She is in no di stress. VITAL SIGNS: Temperature 99.1, pulse 86, respirations 20, blood pressure 117/49, saturation 99%. WBC 8.8, H and H 9.5 and 28.9, platelets 78. BUN 130, creatinine 2.59. INDWELLINGS: Endotracheal tube, NG tube, Cabrera catheter, PICC line. MICROBIOLOGY: Blood cultures negative. Urine culture growing yeast and gram-negative rods. MRSA sw ab came back positive. DIAGNOSTICS: Renal ultrasound revealed no evidence of hydronephrosis. A chest x-ray revealed atelec tatic changes with superimposed infectious/inflammatory process in the right lung. Gallbladder ultra sound on admission revealed dilated pancreatic duct measuring up to 4 mm, mass in the region of pancr eatic head cannot be excluded. Recommendation of CT with contrast or MRCP, no evidence of gallstones . ALLERGIES: NONE. ANTIMICROBIALS: The patient is on meropenem and vancomycin. PHYSICAL EXAMINATION: GENERAL: This is a chronically ill-appearing, obese elderly woman who is in no distress. Head atrau matic, normocephalic. NECK: Obese. CHEST: Rise symmetrical. Breath sounds diminished to bases. HEART: S1, S2. ABDOMEN: Obese, soft, bowel tones present. EXTREMITIES: Bilateral lower extremities edema, erythema. ASSESSMENT: 1. Severe sepsis with shock. 2. Urinary tract infection. 3. Acute hypoxemic respiratory failure, rule out aspiration. 4. Acute possibly on chronic kidney disease. 5. Congestive heart failure. 6. Morbid obesity. 7. MRSA nares colonization. PLAN: We are going to start her on fluconazole. Continue vancomycin and meropenem, apply Silvadene cream to bilateral lower extremities and send sputum culture. Consider MRCP once the patient is more stable. Dictated By: ANITA LUA TRIM AND BURR OPERATOR for KRISTOPHER TAVARES MD NI/NTS Conf#: [id number] DID#: [id number] CC: VERNON COWART MD;*EndCC*
[2019-03-04] MEDS ORDERED: MUPIROCIN 2% 22 GM OINT TOP SCH (14:30)
[2019-03-04] MEDS: MUPIROCIN 2% 22 GM OINT TOP SCH ×2 (16:00→20:56)
[2019-03-05] VITALS (33 sets, daily range): BP systolic 99–120; BP diastolic 36–55; PULSE 66–85; RESP 15–23
[2019-03-05] MEDS: SOD CHLORIDE 0.9% 1,000 ML IV SCH ×2 (02:28→13:37)
--- NOTE | 2019-03-05 06:02 | CONS ---
Assessment/Plan Assessment/Plan Assessment/Plan (Daily) Acute renal insufficiency Altered mental status Acute respiratory failure requiring intubation Bilateral lower extremity cellulitis Sepsis shock Thrombocytopenia anemia History of Parkinson's disease History of inability to do ADLs History of failure to thrive Have had an extensive discussion with patient's daughter on March 04, 2019 then the computers broke down this dictation is from last nice conversation. First she has decided no dialysis for now and to change patient's CODE STATUS to DO NOT RESUSCITATE . In the event the patient continues to deteriorate as we suspect I do not feel that there would be indications for further aggressive care because patient's quality of life is poor. This is from a physiologic standpoint from a cognitive standpoint family member state that she is otherwise intact. Other chronic medical problems include hyperlipidemia hypothyroidism. Patient's daughter is very understanding and does not want her mother to suffer I understand from prior admission she has refused dialysis after speaking to nephrology consultation today she is refused dialysis once again we will support her decision I will call her today March 05, 2019. Patient's overall prognosis is grim. Today I will contact family members open up the conversation about comfort measures. Consultation Date/Type/Reason Admit Date/Time Mar 02, 2019 at 13:39 Date/Time of Note DATE: 03/05/19 TIME: 05:57 Hx of Present Illness 79-year-old female brought to [facility] in respiratory distress and altered mental status. Patient required early urgent intubation in the emergency room was transferred to the intensive care unit septic. Patient has a history of prior hospitalizations where family members have decided that when she was in acute renal failure not to dialyze her at that time. Other comorbid medical problems include bilateral lower extremity cellulitis which is considered to be attributable to her sepsis syndrome at this time from an infectious disease real estate consultant standpoint. Patient was initially required low- dose of pressors she is off at this time. Other concurrent comorbid medical problems include hyperlipidemia hypertension Parkinson's disease unable to do all her ADLs although family member states that she is cognitively intact. Unable to participate Past Medical History Medical History: other (chronic diastolic congestive heart failure, COPD, hyperlipidemia, hypothyroidism, chronic kidney disease, peripheral vascular disease with bilateral lower extremity wounds, Parkinson's disease) Home Meds Reported Medications Diclofenac Sodium* (Voltaren* Gel) 1% -100 Gm Gel, 2 GM TOP BID PRN for PAIN, #1 TUB 03/02/19 Carbidopa/Levodopa (Sinemet 25-100 mg Tablet) 1 Each Tablet, 1 EACH PO TID, TAB 03/02/19 Furosemide* (Furosemide*) 40 Mg Tablet, 60 MG PO DAILY, TAB 03/02/19 Hydrocodone/Acetaminophen ([place] 5-325 Tablet) 1 Each Tablet, 1 EACH PO Q12H PRN for PRN, TAB 03/02/19 Levothyroxine Sodium* (Levothyroxine Sodium*) 150 Mcg Tablet, 150 MCG PO BEFORE BREAKFAST, #30 TAB 03/02/19 Discontinued Scripts Collagenase* (Santyl*) 30 Gm Oint..gm., 1 APPLIC TOP DAILY for 30 Days Prov:ABI GARCIA 01/22/18 Megestrol Acetate* (Megace*) 40 Mg Tab, 40 MG PO DAILY for 30 Days, TAB Prov:ABI GARCIA 01/22/18 Levothyroxine Sodium* (Levothyroxine Sodium*) 150 Mcg Tablet, 150 MCG PO BEFORE BREAKFAST for 30 Days, TAB Prov:ABI GARCIA 01/22/18 Sennosides* (Senna Lax*) 8.6 Mg Tablet, 2 TAB PO BID PRN for CONSTIPATION, #30 TAB Prov:ABI GARCIA 01/22/18 Docusate Sodium (Dok) 100 Mg Capsule, 100 MG PO Q12H for 30 Days, CAP Prov:ABI GARCIA 01/22/18 Potassium Chloride* (Klor-Con*) 20 Meq Tabsr, 20 MEQ PO DAILY for 30 Days, TAB Prov:ABI GARCIA 01/22/18 Furosemide* (Furosemide*) 40 Mg Tablet, 40 MG PO DAILY for 30 Days, TAB Prov:KEN GARCIAA 01/22/18 Hydrocodone Bit-Acetaminophen (Hydrocodone Bit-APAP) 5-325MG Tablet, 1 TAB PO Q6H PRN for MODERATE PAIN LEVEL 4-6, #30 TAB Prov:ABI GARCIA 01/22/18 Ascorbic Acid (Vitamin C) 500 Mg Tab, 500 MG PO DAILY for 30 Days, TAB Prov:ABI GARCIA 01/22/18 Carbidopa/Levodopa (Sinemet 25-100 mg Tablet) 1 Each Tablet, 1 EACH PO TID for 30 Days, TAB Prov:ABI GARCIA 01/22/18 Multivit-Min/Iron Fum/Folic AC (Xdxbr-Qeobnqr-Rsoqkyxu Tablet) 1 Each Tablet, 1 EACH PO DAILY for 30 Days, TAB Prov:ABI GARCIA 01/22/18 Ferrous Sulfate* (Ferrous Sulfate*) 325 Mg Tabec, 325 MG PO DAILY for 30 Days, TAB Prov:ABI GARCIA 01/22/18 Medications Current Medications Dextrose (D50w Syringe) ONCE PRN IV DECREASED GLUCOSE Last administered on 03/02/19at 19:05; Admin Dose 50 ML; Start 03/02/19 at 14:00 Ondansetron HCl (Zofran Inj) 4 mg Q6H PRN IV NAUSEA AND/OR VOMITING; Start 03/02/19 at 14:00 Acetaminophen (Tylenol Liquid) 650 mg Q6H PRN PO PAIN LEVEL 1-3 OR FEVER; Start 03/02/19 at 14:00 Morphine Sulfate (morphine) 2 mg Q4H PRN IV PAIN LEVEL 7-10; Start 03/02/19 at 14:00 Famotidine (Pepcid Iv) 20 mg DAILY IV Last administered on 03/04/19at 09:01; Admin Dose 20 MG; Start 03/02/19 at 14:30 Enoxaparin Sodium (Lovenox) 30 mg DAILY SC Last administered on 03/04/19at 09:03; Admin Dose 30 MG; Start 03/03/19 at 09:00 Clonidine (Catapres) 0.2 mg Q6H PRN PO ELEVATED BLOOD PRESSURE; Start 03/02/19 at 18:00 Hydralazine HCl (Apresoline) 10 mg Q4H PRN IV SBP more than 150 mm hg ; Start 03/02/19 at 23:38 Fentanyl 100 ml @ 2.5 mls/hr TITRATE IV Last administered on 03/04/19at 02:26; Admin Dose 2.5 MLS/HR; Start 03/03/19 at 09:30 Citric Acid/ Sodium Citrate (Bicitra) 30 ml TID NGT Last administered on 03/04/19at 20:56; Admin Dose 30 ML; Start 03/03/19 at 10:30 Norepinephrine 250 ml @ 1.875 mls/ hr TITRATE IV Last administered on 03/03/19at 14:15; Admin Dose 3.75 MLS/HR; Start 03/03/19 at 14:00 IV Flush (NS 10 ml) 10 ml Q8 PRN IV IV PROTOCOL; Start 03/03/19 at 15:30 Miscellaneous Information 1 ea NOTE XX ; Start 03/03/19 at 15:30 Glucose (Glutose) 15 gm Q15M PRN PO DECREASED GLUCOSE; Start 03/03/19 at 15:30 Glucose (Glutose) 22.5 gm Q15M PRN PO DECREASED GLUCOSE; Start 03/03/19 at 15:3 0 Dextrose (D50w Syringe) 25 ml Q15M PRN IV DECREASED GLUCOSE; Start 03/03/19 at 15:30 Dextrose (D50w Syringe) 50 ml Q15M PRN IV DECREASED GLUCOSE; Start 03/03/19 at 15:30 Glucagon (Glucagen) 1 mg Q15M PRN IM DECREASED GLUCOSE; Start 03/03/19 at 15:30 Glucose (Glutose) 15 gm Q15M PRN BUCCAL DECREASED GLUCOSE; Start 03/03/19 at 15:30 Vancomycin HCl (Vanco Iv Per Pharmacy) VANCOMYCIN PER PHARMACY PER PROTOCOL XX ; Start 03/03/19 at 17:30 Sodium Chloride 1,000 ml @ 100 mls/hr Q10H IV Last administered on 03/05/19at 02:28; Admin Dose 100 MLS/HR; Start 03/03/19 at 18:00 Meropenem/Sodium Chloride 50 ml @ 100 mls/hr Q12H IVPB Last administered on 03/04/19at 20:56; Admin Dose 100 MLS/HR; Start 03/03/19 at 20:00 Mupirocin (Bactroban) 1 applic BID TOP Last administered on 03/04/19at 20:56; Admin Dose 1 APPLIC; Start 03/04/19 at 13:30; Stop 03/14/19 at 13:29 Fluconazole (Diflucan) 100 mg DAILY PO Last administered on 03/04/19at 13:32; Admin Dose 100 MG; Start 03/04/19 at 13:00 Allergies: Coded Allergies: No Known Allergy (Unverified , 03/02/19) Past Surgical History Past Surgical Hx: other (Not available ) Social History Alcohol Use: none Smoking Status: Never smoker Drug Use: none Exam/Review of Systems Exam Vitals Vital Signs Date Temp Pulse Resp B/P (MAP) Pulse Ox O2 O2 Flow FiO2 Time Delivery Rate 03/05/19 75 18 97 30 04:57 03/05/19 99.0 120/55 Mechanical 04:00 (76) Ventilator 03/03/19 15.0 05:48 Intake and Output 03/04/19 03/04/19 03/05/19 1515:00 23:00 07:00 IntakeIntake Total 681.250 ml 1000.0 ml 692.5 ml OutputOutput Total 535 ml 890 ml 480 ml BalanceBalance 146.250 ml 110.0 ml 212.5 ml Constitutional: frail, other (Sedated) Eyes: nl conjunctiva, EOMI, nl lids, nl sclera, PERRL Neck: supple, non-tender Respiratory: congested cough, diminished breath sounds, intercostal retraction, labored breathing Cardiovascular: regular rate and rhythm, nl pulses Gastrointestinal: soft, nl liver, spleen, non-tender Neurological: other (Intubated unable to participate) Results Result Diagram: 03/04/19 0415 03/04/19 1549 Results 24hrs Laboratory Tests Test 03/04/19 07:00 03/04/19 12:40 03/04/19 15:49 03/05/19 05:11 Blood Gas Specimen Blood arterial Source Arterial Blood 03/04/2019 7:00:44 Date Drawn AM Arterial Blood pH 7.526 H (Temp corrected) Arterial Blood 33.6 L pCO2 (Temp correct) Arterial Blood pO2 77.7 L (Temp corrected) Arterial Blood 27.2 H HCO3 Arterial Blood 4.5 H Base Excess Arterial Blood 95.9 Oxygen Saturation Jewel Test ACCEPTAB Arterial Blood Gas Right Radial Puncture Site Arterial 0.6 Blood Carboxyhemog lobin Arterial Blood 0.3 Methemoglobin Blood Gas A-a O2 96.7 H Differential Oxyhemoglobin 95.0 Percent Blood Gas 37.0 Temperature Blood Gas 18.0 Respiration Rate Blood Gas Actual 18 Respiration Rate Blood Gas Modality VENT - AC FiO2 30.0 Blood Gas Tidal 500.0 Volume Blood Gas Low PEEP 5.0 Setting Blood Gas Notified TM Whom Blood Gas Notified 03/04/2019 7:10:21 Time AM Bedside Glucose 144 Sodium Level 150 H Potassium Level 3.0 L Chloride Level 113 H Carbon Dioxide 30 Level Anion Gap 7 Blood Urea 126 H Nitrogen Creatinine 2.83 H Est Glomerular Filtrat Rate mL/min Glucose Level 115 Calcium Level 7.4 L White Blood Count Pending Red Blood Count Pending Hemoglobin Pending Hematocrit Pending Mean Corpuscular Pending Volume Mean Corpuscular Pending Hemoglobin Mean Corpuscular Pending Hemoglobin Concent Red Cell Pending Distribution Width Platelet Count Pending Mean Platelet Pending Volume Medications Medication Current Medications Dextrose (D50w Syringe) ONCE PRN IV DECREASED GLUCOSE Last administered on 03/02/19at 19:05; Admin Dose 50 ML; Start 03/02/19 at 14:00 Ondansetron HCl (Zofran Inj) 4 mg Q6H PRN IV NAUSEA AND/OR VOMITING; Start 03/02/19 at 14:00 Acetaminophen (Tylenol Liquid) 650 mg Q6H PRN PO PAIN LEVEL 1-3 OR FEVER; Start 03/02/19 at 14:00 Morphine Sulfate (morphine) 2 mg Q4H PRN IV PAIN LEVEL 7-10; Start 03/02/19 at 14:00 Famotidine (Pepcid Iv) 20 mg DAILY IV Last administered on 03/04/19at 09:01; Admin Dose 20 MG; Start 03/02/19 at 14:30 Enoxaparin Sodium (Lovenox) 30 mg DAILY SC Last administered on 03/04/19at 09:03; Admin Dose 30 MG; Start 03/03/19 at 09:00 Clonidine (Catapres) 0.2 mg Q6H PRN PO ELEVATED BLOOD PRESSURE; Start 03/02/19 at 18:00 Hydralazine HCl (Apresoline) 10 mg Q4H PRN IV SBP more than 150 mm hg ; Start 03/02/19 at 23:38 Fentanyl 100 ml @ 2.5 mls/hr TITRATE IV Last administered on 03/04/19at 02:26; Admin Dose 2.5 MLS/HR; Start 03/03/19 at 09:30 Citric Acid/ Sodium Citrate (Bicitra) 30 ml TID NGT Last administered on 03/04/19at 20:56; Admin Dose 30 ML; Start 03/03/19 at 10:30 Norepinephrine 250 ml @ 1.875 mls/ hr TITRATE IV Last administered on 03/03/19at 14:15; Admin Dose 3.75 MLS/HR; Start 03/03/19 at 14:00 IV Flush (NS 10 ml) 10 ml Q8 PRN IV IV PROTOCOL; Start 03/03/19 at 15:30 Miscellaneous Information 1 ea NOTE XX ; Start 03/03/19 at 15:30 Glucose (Glutose) 15 gm Q15M PRN PO DECREASED GLUCOSE; Start 03/03/19 at 15:30 Glucose (Glutose) 22.5 gm Q15M PRN PO DECREASED GLUCOSE; Start 03/03/19 at 15:30 Dextrose (D50w Syringe) 25 ml Q15M PRN IV DECREASED GLUCOSE; Start 03/03/19 at 15:30 Dextrose (D50w Syringe) 50 ml Q15M PRN IV DECREASED GLUCOSE; Start 03/03/19 at 15:30 Glucagon (Glucagen) 1 mg Q15M PRN IM DECREASED GLUCOSE; Start 03/03/19 at 15:30 Glucose (Glutose) 15 gm Q15M PRN BUCCAL DECREASED GLUCOSE; Start 03/03/19 at 1 5:30 Vancomycin HCl (Vanco Iv Per Pharmacy) VANCOMYCIN PER PHARMACY PER PROTOCOL XX ; Start 03/03/19 at 17:30 Sodium Chloride 1,000 ml @ 100 mls/hr Q10H IV Last administered on 03/05/19at 02:28; Admin Dose 100 MLS/HR; Start 03/03/19 at 18:00 Meropenem/Sodium Chloride 50 ml @ 100 mls/hr Q12H IVPB Last administered on 03/04/19at 20:56; Admin Dose 100 MLS/HR; Start 03/03/19 at 20:00 Mupirocin (Bactroban) 1 applic BID TOP Last administered on 03/04/19at 20:56; Admin Dose 1 APPLIC; Start 03/04/19 at 13:30; Stop 03/14/19 at 13:29 Fluconazole (Diflucan) 100 mg DAILY PO Last administered on 03/04/19at 13:32; Admin Dose 100 MG; Start 03/04/19 at 13:00 YARON BARNHART Mar 05, 2019 06:02
[2019-03-05] MEDS: POTASSIUM CHLORIDE 100 ML IVPB SCH ×4 (06:26→17:50)
[2019-03-05] MEDS: ENOXAPARIN 30 MG/0.3 ML SYG SC SCH (08:21)
--- NOTE | 2019-03-05 09:28 | CONS ---
Assessment/Plan Assessment/Plan Assessment/Plan (Daily) Ventilator setting; AC of 18, tidal volume 400, PEEP of 5, 30% FiO2. Chest x-ray was reviewed from today which is showing improved aeration of right lung. Patient is currently on fentanyl 25 mics per hour. Assessment and recommendations; 1. Patient admitted with respiratory failure due to severe sepsis from UTI as well as bilateral lower extremity cellulitis with interval clinical improvement. 2. Possibly right lower lobe pneumonia as well. Radiologically improved. 3. Acute on chronic renal insufficiency with hyperkalemia with interval improvement. Patient showing improved urinary output. 4. Anemia and severe thrombocytopenia. Continue current supportive care. Hold fentanyl to assess mental status. Patient's family has requested a DNR status. Family also does not want hemodialysis to be initiated if required. Further recommendations once patient is off sedation. Prognosis is guarded. 35 minutes of critical care time was spent evaluating patient. Consultation Date/Type/Reason Admit Date/Time Mar 02, 2019 at 13:39 Initial Consult Date 03/03/19 Type of Consult Pulmonary/critical care Patient is a 79-year-old female who was brought in by family to the hospital with worsening overall mental status and failure to thrive. Patient was transferred to ICU. Patient was on 100% nonrebreather and I was asked to evaluate the patient. The patient was completely unresponsive and was showing tachypnea. It was decided to electively intubate the patient which was done readily at bedside. Patient was unable to give any history by herself whatsoever. History is been obtained from medical records. Past medical history; 1. History of multiple admissions to hospital for various reasons. 2. History of Parkinson's disease. 3. Hypothyroidism. 4. CHF. 5. COPD. 6. Chronic renal insufficiency. 7. Severe peripheral vascular disease. Medications; reviewed. Allergies; none. Social history; patient has a history of smoking. Family history; patient has a supportive niece. Lives at home. Occupational history; not available. Review of system; unable to be obtained. General exam; elderly woman, unresponsive, lethargic. Tachypneic. On 100% nonrebreather mask. Requesting Provider: LISA MATA MD Date/Time of Note DATE: 03/05/19 TIME: 09:24 24 HR Interval Summary Free Text/Dictation Patient's condition is critical. Patient however has remained hemodynamically stable. General exam; elderly woman, orally intubated, sedated, currently in no distress. Exam/Review of Systems Exam Vitals Vital Signs Date Temp Pulse Resp B/P (MAP) Pulse Ox O2 O2 Flow FiO2 Time Delivery Rate 03/05/19 71 20 99 30 08:00 03/05/19 109/41 Mechanical 06:00 (63) Ventilator 03/05/19 99.0 04:00 03/03/19 15.0 05:48 Intake and Output 03/04/19 03/04/19 03/05/19 1515:00 23:00 07:00 IntakeIntake Total 681.250 ml 1000.0 ml 967.5 ml OutputOutput Total 535 ml 890 ml 640 ml BalanceBalance 146.250 ml 110.0 ml 327.5 ml Exam HEENT exam; supple neck, no JVD. No lymphadenopathy. Midline trachea. No thyromegaly. Patient has a multiple carious teeth. Pupils are small bilaterally. Orally intubated. Chest exam; diminished but clear breath sounds. S1-S2 audible, no murmurs. Regular rhythm. Abdomen exam; soft, protuberant. No organomegaly. Bowel sounds are audible. Extremity exam; there is reduction in lower extremity edema with improvement in bilateral lower extremity cellulitis. CATIA DESIGNER exam; patient is sedated. Results Result Diagram: 03/05/19 0511 03/05/19 0511 Results 24hrs Laboratory Tests Test 03/04/19 12:40 03/04/19 15:49 03/05/19 04:00 03/05/19 05:11 Bedside Glucose 144 Sodium Level 150 H 155 H Potassium Level 3.0 L 2.8 *L Chloride Level 113 H 118 H Carbon Dioxide Level 30 31 Anion Gap 7 6 Blood Urea Nitrogen 126 H 116 H Creatinine 2.83 H 2.44 H Est Glomerular Filtrat Rate mL/min Glucose Level 115 139 Calcium Level 7.4 L 7.4 L Random Vancomycin Level 13.3 White Blood Count 7.9 Red Blood Count 3.13 L Hemoglobin 9.4 L Hematocrit 30.5 L Mean Corpuscular Volume 97.4 Mean Corpuscular 30.0 Hemoglobin Mean Corpuscular 30.8 L Hemoglobin Concent Red Cell Distribution 16.1 H Width Platelet Count 60 #L Mean Platelet Volume 10.7 H Immature Granulocytes % 3.700 H Neutrophils % 73.7 Lymphocytes % 8.4 L Monocytes % 13.1 H Eosinophils % 0.1 Basophils % 1.0 Nucleated Red Blood 0.4 H Cells % Immature Granulocytes # 0.290 H Neutrophils # 5.8 Lymphocytes # 0.7 L Monocytes # 1.0 H Eosinophils # 0.0 Basophils # 0.1 Nucleated Red Blood 0.0 Cells # Phosphorus Level 5.1 H Magnesium Level 3.4 H Total Bilirubin 1.2 Direct Bilirubin 0.00 Indirect Bilirubin 1.2 H Aspartate Amino 55 H Transf (AST/SGOT) Alanine 52 Aminotransferase (ALT/SG PT) Alkaline Phosphatase 250 H Total Protein 5.1 L Albumin 2.4 L Globulin 2.70 Albumin/Globulin Ratio 0.88 Medications Medication Current Medications Dextrose (D50w Syringe) ONCE PRN IV DECREASED GLUCOSE Last administered on 03/02/19at 19:05; Admin Dose 50 ML; Start 03/02/19 at 14:00 Ondansetron HCl (Zofran Inj) 4 mg Q6H PRN IV NAUSEA AND/OR VOMITING; Start 03/02/19 at 14:00 Acetaminophen (Tylenol Liquid) 650 mg Q6H PRN PO PAIN LEVEL 1-3 OR FEVER; Start 03/02/19 at 14:00 Morphine Sulfate (morphine) 2 mg Q4H PRN IV PAIN LEVEL 7-10; Start 03/02/19 at 14:00 Famotidine (Pepcid Iv) 20 mg DAILY IV Last administered on 03/04/19at 09:01; Admin Dose 20 MG; Start 03/02/19 at 14:30 Enoxaparin Sodium (Lovenox) 30 mg DAILY SC Last administered on 03/04/19at 09:03; Admin Dose 30 MG; Start 03/03/19 at 09:00 Clonidine (Catapres) 0.2 mg Q6H PRN PO ELEVATED BLOOD PRESSURE; Start 03/02/19 at 18:00 Hydralazine HCl (Apresoline) 10 mg Q4H PRN IV SBP more than 150 mm hg ; Start 03/02/19 at 23:38 Fentanyl 100 ml @ 2.5 mls/hr TITRATE IV Last administered on 03/04/19at 02:26; Admin Dose 2.5 MLS/HR; Start 03/03/19 at 09:30 Citric Acid/ Sodium Citrate (Bicitra) 30 ml TID NGT Last administered on 03/04/19at 20:56; Admin Dose 30 ML; Start 03/03/19 at 10:30 Norepinephrine 250 ml @ 1.875 mls/ hr TITRATE IV Last administered on 03/03/19at 14:15; Admin Dose 3.75 MLS/HR; Start 03/03/19 at 14:00 IV Flush (NS 10 ml) 10 ml Q8 PRN IV IV PROTOCOL; Start 03/03/19 at 15:30 Miscellaneous Information 1 ea NOTE XX ; Start 03/03/19 at 15:30 Glucose (Glutose) 15 gm Q15M PRN PO DECREASED GLUCOSE; Start 03/03/19 at 15:30 Glucose (Glutose) 22.5 gm Q15M PRN PO DECREASED GLUCOSE; Start 03/03/19 at 15:30 Dextrose (D50w Syringe) 25 ml Q15M PRN IV DECREASED GLUCOSE; Start 03/03/19 at 15:30 Dextrose (D50w Syringe) 50 ml Q15M PRN IV DECREASED GLUCOSE; Start 03/03/19 at 15:30 Glucagon (Glucagen) 1 mg Q15M PRN IM DECREASED GLUCOSE; Start 03/03/19 at 15:30 Glucose (Glutose) 15 gm Q15M PRN BUCCAL DECREASED GLUCOSE; Start 03/03/19 at 15:30 Vancomycin HCl (Vanco Iv Per Pharmacy) VANCOMYCIN PER PHARMACY PER PROTOCOL XX ; Start 03/03/19 at 17:30 Sodium Chloride 1,000 ml @ 100 mls/hr Q10H IV Last administered on 03/05/19at 02:28; Admin Dose 100 MLS/HR; Start 03/03/19 at 18:00 Meropenem/Sodium Chloride 50 ml @ 100 mls/hr Q12H IVPB Last administered on 03/04/19at 20:56; Admin Dose 100 MLS/HR; Start 03/03/19 at 20:00 Mupirocin (Bactroban) 1 applic BID TOP Last administered on 03/04/19at 20:56; Admin Dose 1 APPLIC; Start 03/04/19 at 13:30; Stop 03/14/19 at 13:29 Fluconazole (Diflucan) 100 mg DAILY PO Last administered on 03/04/19at 13:32; Admin Dose 100 MG; Start 03/04/19 at 13:00 Potassium Chloride 100 ml @ 50 mls/hr Q4H IVPB Last administered on 03/05/19at 06:26; Admin Dose 50 MLS/HR; Start 03/05/19 at 06:30; Stop 03/05/19 at 20:29 GABRIEL PRESLEY Mar 05, 2019 09:28
[2019-03-05] MEDS: MEROPENEM 500MG/50 ML (PMX) 50 ML IVPB SCH ×2 (09:41→21:26)
[2019-03-05] MEDS: FLUCONAZOLE 100 MG TAB PO SCH (09:41)
[2019-03-05] MEDS: CITRIC ACID/NA CITRATE 30 ML CUP NGT SCH ×3 (09:41→21:27)
[2019-03-05] MEDS: FAMOTIDINE 20 MG INJ IV SCH (09:41)
[2019-03-05] MEDS: MUPIROCIN 2% 22 GM OINT TOP SCH ×2 (09:42→21:27)
--- NOTE | 2019-03-05 11:32 | CONS ---
Assessment/Plan Assessment/Plan Assessment/Plan (Daily) 1. acute hyperkalemia with K 7.3 on admission - now resolved 2. acute kidney injury on CKD III 2/2 ischemic ATN + prerenal azotemia 3. Severe metabolic acidosis 4. septic shock on admission unclear source at this time 5. H/o COPD 6. H/o diastolic Heart failure with Preserved EF 7. H/o Hypothyroidisk 8. H/o Parkinoson's disease 9. h/o HTN 10. acute hypoxic respiratory failure intubate on ventilator Plan: Ventilator care pulmonary pt is in post ATN diuresis, monitor electrolytes and replace agreesively , K low- agressively replace K today IV abx Meropenem and Vancomycin< renally dose all abx and monitoe electrolytes BUN/Cr improved to 116/2.44, Na trended up from 150 to 155, , d/c IVF NS, start D5W with KCl 20mEQ at 80 cc/hr I had discusesd with patient Niece about Pt condition and Explained in her detail about need for dialysis, Due to patient age and comorbidities they decided not have to have HD at this time, they would like to treat conservatively DNR code status will follow up Consultation Date/Type/Reason Admit Date/Time Mar 02, 2019 at 13:39 Initial Consult Date 03/03/19 Type of Consult NEPHROLOGY Requesting Provider: LISA MATA MD Date/Time of Note DATE: 03/05/19 TIME: 11:32 Exam/Review of Systems Exam Vitals Vital Signs Date Temp Pulse Resp B/P (MAP) Pulse Ox O2 O2 Flow FiO2 Time Delivery Rate 03/05/19 71 20 99 30 08:00 03/05/19 109/41 Mechanical 06:00 (63) Ventilator 03/05/19 99.0 04:00 03/03/19 15.0 05:48 Intake and Output 03/04/19 03/04/19 03/05/19 1515:00 23:00 07:00 IntakeIntake Total 681.250 ml 1000.0 ml 967.5 ml OutputOutput Total 535 ml 890 ml 640 ml BalanceBalance 146.250 ml 110.0 ml 327.5 ml Exam Constitutional: intubated on ventilator, Non verbal Respiratory: congested cough, crackles/rales, diminished breath sounds Cardiovascular: regular rate and rhythm, nl pulses Gastrointestinal: soft, non-tender, other (non distended, BS+) Musculoskeletal: muscle weakness, swelling (1+ edema ) Neurological: sedated on ventilator Lymph: nl lymph nodes Results Result Diagram: 03/05/19 0511 03/05/19 0511 Results 24hrs Laboratory Tests Test 03/04/19 12:40 03/04/19 15:49 03/05/19 04:00 03/05/19 05:11 Bedside Glucose 144 Sodium Level 150 H 155 H Potassium Level 3.0 L 2.8 *L Chloride Level 113 H 118 H Carbon Dioxide Level 30 31 Anion Gap 7 6 Blood Urea Nitrogen 126 H 116 H Creatinine 2.83 H 2.44 H Est Glomerular Filtrat Rate mL/min Glucose Level 115 139 Calcium Level 7.4 L 7.4 L Random Vancomycin Level 13.3 White Blood Count 7.9 Red Blood Count 3.13 L Hemoglobin 9.4 L Hematocrit 30.5 L Mean Corpuscular Volume 97.4 Mean Corpuscular 30.0 Hemoglobin Mean Corpuscular 30.8 L Hemoglobin Concent Red Cell Distribution 16.1 H Width Platelet Count 60 #L Mean Platelet Volume 10.7 H Immature Granulocytes % 3.700 H Neutrophils % 73.7 Lymphocytes % 8.4 L Monocytes % 13.1 H Eosinophils % 0.1 Basophils % 1.0 Nucleated Red Blood 0.4 H Cells % Immature Granulocytes # 0.290 H Neutrophils # 5.8 Lymphocytes # 0.7 L Monocytes # 1.0 H Eosinophils # 0.0 Basophils # 0.1 Nucleated Red Blood 0.0 Cells # Phosphorus Level 5.1 H Magnesium Level 3.4 H Total Bilirubin 1.2 Direct Bilirubin 0.00 Indirect Bilirubin 1.2 H Aspartate Amino 55 H Transf (AST/SGOT) Alanine 52 Aminotransferase (ALT/SG PT) Alkaline Phosphatase 250 H Total Protein 5.1 L Albumin 2.4 L Globulin 2.70 Albumin/Globulin Ratio 0.88 Medications Medication Current Medications Dextrose (D50w Syringe) ONCE PRN IV DECREASED GLUCOSE Last administered on 03/02/19at 19:05; Admin Dose 50 ML; Start 03/02/19 at 14:00 Ondansetron HCl (Zofran Inj) 4 mg Q6H PRN IV NAUSEA AND/OR VOMITING; Start 03/02/19 at 14:00 Acetaminophen (Tylenol Liquid) 650 mg Q6H PRN PO PAIN LEVEL 1-3 OR FEVER; Start 03/02/19 at 14:00 Morphine Sulfate (morphine) 2 mg Q4H PRN IV PAIN LEVEL 7-10; Start 03/02/19 at 14:00 Famotidine (Pepcid Iv) 20 mg DAILY IV Last administered on 03/05/19at 09:41; Admin Dose 20 MG; Start 03/02/19 at 14:30 Enoxaparin Sodium (Lovenox) 30 mg DAILY SC Last administered on 03/04/19at 09:03; Admin Dose 30 MG; Start 03/03/19 at 09:00 Clonidine (Catapres) 0.2 mg Q6H PRN PO ELEVATED BLOOD PRESSURE; Start 03/02/19 at 18:00 Hydralazine HCl (Apresoline) 10 mg Q4H PRN IV SBP more than 150 mm hg ; Start 03/02/19 at 23:38 Fentanyl 100 ml @ 2.5 mls/hr TITRATE IV Last administered on 03/04/19at 02:26; Admin Dose 2.5 MLS/HR; Start 03/03/19 at 09:30 Citric Acid/ Sodium Citrate (Bicitra) 30 ml TID NGT Last administered on 03/05/19at 09:41; Admin Dose 30 ML; Start 03/03/19 at 10:30 Norepinephrine 250 ml @ 1.875 mls/ hr TITRATE IV Last administered on 03/03/19at 14:15; Admin Dose 3.75 MLS/HR; Start 03/03/19 at 14:00 IV Flush (NS 10 ml) 10 ml Q8 PRN IV IV PROTOCOL; Start 03/03/19 at 15:30 Miscellaneous Information 1 ea NOTE XX ; Start 03/03/19 at 15:30 Glucose (Glutose) 15 gm Q15M PRN PO DECREASED GLUCOSE; Start 03/03/19 at 15:30 Glucose (Glutose) 22.5 gm Q15M PRN PO DECREASED GLUCOSE; Start 03/03/19 at 15:30 Dextrose (D50w Syringe) 25 ml Q15M PRN IV DECREASED GLUCOSE; Start 03/03/19 at 15:30 Dextrose (D50w Syringe) 50 ml Q15M PRN IV DECREASED GLUCOSE; Start 03/03/19 at 15:30 Glucagon (Glucagen) 1 mg Q15M PRN IM DECREASED GLUCOSE; Start 03/03/19 at 15:30 Glucose (Glutose) 15 gm Q15M PRN BUCCAL DECREASED GLUCOSE; Start 03/03/19 at 15:30 Vancomycin HCl (Vanco Iv Per Pharmacy) VANCOMYCIN PER PHARMACY PER PROTOCOL XX ; Start 03/03/19 at 17:30 Sodium Chloride 1,000 ml @ 100 mls/hr Q10H IV Last administered on 03/05/19at 02:28; Admin Dose 100 MLS/HR; Start 03/03/19 at 18:00 Meropenem/Sodium Chloride 50 ml @ 100 mls/hr Q12H IVPB Last administered on 03/05/19at 09:41; Admin Dose 100 MLS/HR; Start 03/03/19 at 20:00 Mupirocin (Bactroban) 1 applic BID TOP Last administered on 03/05/19at 09:42; Admin Dose 1 APPLIC; Start 03/04/19 at 13:30; Stop 03/14/19 at 13:29 Fluconazole (Diflucan) 100 mg DAILY PO Last administered on 03/05/19at 09:41; Admin Dose 100 MG; Start 03/04/19 at 13:00 Potassium Chloride 100 ml @ 50 mls/hr Q4H IVPB Last administered on 03/05/19at 11:14; Admin Dose 50 MLS/HR; Start 03/05/19 at 06:30; Stop 03/05/19 at 20:29 ENRIQUETA HUNG MD Mar 05, 2019 11:32
--- NOTE | 2019-03-05 13:18 | CONS ---
Assessment/Plan Assessment/Plan Hospital Course (Demo Recall) Patient is off pressors since yesterday she is intubated sedated in no distress and afebrile. Micro: Urine culture growing Klebsiella and yeast, blood cultures negative MRSA swab positive INDWELLINGS: Endotracheal tube, NG tube, Cabrera catheter, PICC line. DIAGNOSTICS: Renal ultrasound revealed no evidence of hydronephrosis. A chest x-ray revealed atelectatic changes with superimposed infectious/inflammatory process in the right lung. Gallbladder ultrasound on admission revealed dilated pancreatic duct measuring up to 4 mm, mass in the region of pancreatic head cannot be excluded. Recommendation of CT with contrast or MRCP, no evidence of gallstones. ALLERGIES: NONE. ANTIMICROBIALS: Diflucan, meropenem and vancomycin. PHYSICAL EXAMINATION: GENERAL: This is a chronically ill-appearing, obese elderly woman who is in no distress. Head atraumatic, normocephalic. NECK: Obese. CHEST: Rise symmetrical. Breath sounds diminished to bases. HEART: S1, S2. ABDOMEN: Obese, soft, bowel tones present. EXTREMITIES: Bilateral lower extremities edema, erythema, dsg intact. ASSESSMENT: 1. Severe sepsis with shock. 2. Urinary tract infection. 3. Acute hypoxemic respiratory failure, rule out aspiration. 4. Acute possibly on chronic kidney disease. 5. Congestive heart failure. 6. Morbid obesity. 7. MRSA nares colonization. PLAN: Patient is stable off pressors, continue present care antibiotics, vent management per pulmonary. MRCP once the patient is more stable. Consultation Date/Type/Reason Admit Date/Time Mar 02, 2019 at 13:39 Initial Consult Date 03/03/19 Type of Consult id Requesting Provider: LISA MATA MD Date/Time of Note DATE: 03/05/19 TIME: 13:16 Exam/Review of Systems Exam Vitals Vital Signs Date Temp Pulse Resp B/P (MAP) Pulse Ox O2 O2 Flow FiO2 Time Delivery Rate 03/05/19 72 12:00 03/05/19 20 99 30 08:00 03/05/19 109/41 Mechanical 06:00 (63) Ventilator 03/05/19 99.0 04:00 03/03/19 15.0 05:48 Intake and Output 03/04/19 03/04/19 03/05/19 1515:00 23:00 07:00 IntakeIntake Total 681.250 ml 1000.0 ml 967.5 ml OutputOutput Total 535 ml 890 ml 640 ml BalanceBalance 146.250 ml 110.0 ml 327.5 ml Results Result Diagram: 03/05/19 0511 03/05/19 0511 Results 24hrs Laboratory Tests Test 03/04/19 15:49 03/05/19 04:00 03/05/19 05:11 Sodium Level 150 H 155 H Potassium Level 3.0 L 2.8 *L Chloride Level 113 H 118 H Carbon Dioxide Level 30 31 Anion Gap 7 6 Blood Urea Nitrogen 126 H 116 H Creatinine 2.83 H 2.44 H Est Glomerular Filtrat Rate mL/min Glucose Level 115 139 Calcium Level 7.4 L 7.4 L Random Vancomycin Level 13.3 White Blood Count 7.9 Red Blood Count 3.13 L Hemoglobin 9.4 L Hematocrit 30.5 L Mean Corpuscular Volume 97.4 Mean Corpuscular Hemoglobin 30.0 Mean Corpuscular Hemoglobin Concent 30.8 L Red Cell Distribution Width 16.1 H Platelet Count 60 #L Mean Platelet Volume 10.7 H Immature Granulocytes % 3.700 H Neutrophils % 73.7 Lymphocytes % 8.4 L Monocytes % 13.1 H Eosinophils % 0.1 Basophils % 1.0 Nucleated Red Blood Cells % 0.4 H Immature Granulocytes # 0.290 H Neutrophils # 5.8 Lymphocytes # 0.7 L Monocytes # 1.0 H Eosinophils # 0.0 Basophils # 0.1 Nucleated Red Blood Cells # 0.0 Phosphorus Level 5.1 H Magnesium Level 3.4 H Total Bilirubin 1.2 Direct Bilirubin 0.00 Indirect Bilirubin 1.2 H Aspartate Amino Transf (AST/SGOT) 55 H Alanine Aminotransferase (ALT/SGPT) 52 Alkaline Phosphatase 250 H Total Protein 5.1 L Albumin 2.4 L Globulin 2.70 Albumin/Globulin Ratio 0.88 Medications Medication Current Medications Dextrose (D50w Syringe) ONCE PRN IV DECREASED GLUCOSE Last administered on 03/02/19at 19:05; Admin Dose 50 ML; Start 03/02/19 at 14:00 Ondansetron HCl (Zofran Inj) 4 mg Q6H PRN IV NAUSEA AND/OR VOMITING; Start 03/02/19 at 14:00 Acetaminophen (Tylenol Liquid) 650 mg Q6H PRN PO PAIN LEVEL 1-3 OR FEVER; Start 03/02/19 at 14:00 Morphine Sulfate (morphine) 2 mg Q4H PRN IV PAIN LEVEL 7-10; Start 03/02/19 at 14:00 Famotidine (Pepcid Iv) 20 mg DAILY IV Last administered on 03/05/19at 09:41; Admin Dose 20 MG; Start 03/02/19 at 14:30 Enoxaparin Sodium (Lovenox) 30 mg DAILY SC Last administered on 03/04/19at 09:03; Admin Dose 30 MG; Start 03/03/19 at 09:00 Clonidine (Catapres) 0.2 mg Q6H PRN PO ELEVATED BLOOD PRESSURE; Start 03/02/19 at 18:00 Hydralazine HCl (Apresoline) 10 mg Q4H PRN IV SBP more than 150 mm hg ; Start 03/02/19 at 23:38 Fentanyl 100 ml @ 2.5 mls/hr TITRATE IV Last administered on 03/04/19at 02:26; Admin Dose 2.5 MLS/HR; Start 03/03/19 at 09:30 Citric Acid/ Sodium Citrate (Bicitra) 30 ml TID NGT Last administered on 03/05/19at 09:41; Admin Dose 30 ML; Start 03/03/19 at 10:30 Norepinephrine 250 ml @ 1.875 mls/ hr TITRATE IV Last administered on 03/03/19at 14:15; Admin Dose 3.75 MLS/HR; Start 03/03/19 at 14:00 IV Flush (NS 10 ml) 10 ml Q8 PRN IV IV PROTOCOL; Start 03/03/19 at 15:30 Miscellaneous Information 1 ea NOTE XX ; Start 03/03/19 at 15:30 Glucose (Glutose) 15 gm Q15M PRN PO DECREASED GLUCOSE; Start 03/03/19 at 15:30 Glucose (Glutose) 22.5 gm Q15M PRN PO DECREASED GLUCOSE; Start 03/03/19 at 15:30 Dextrose (D50w Syringe) 25 ml Q15M PRN IV DECREASED GLUCOSE; Start 03/03/19 at 15:30 Dextrose (D50w Syringe) 50 ml Q15M PRN IV DECREASED GLUCOSE; Start 03/03/19 at 15:30 Glucagon (Glucagen) 1 mg Q15M PRN IM DECREASED GLUCOSE; Start 03/03/19 at 15:30 Glucose (Glutose) 15 gm Q15M PRN BUCCAL DECREASED GLUCOSE; Start 03/03/19 at 15:30 Vancomycin HCl (Vanco Iv Per Pharmacy) VANCOMYCIN PER PHARMACY PER PROTOCOL XX ; Start 03/03/19 at 17:30 Sodium Chloride 1,000 ml @ 100 mls/hr Q10H IV Last administered on 03/05/19at 02:28; Admin Dose 100 MLS/HR; Start 03/03/19 at 18:00 Meropenem/Sodium Chloride 50 ml @ 100 mls/hr Q12H IVPB Last administered on 03/05/19at 09:41; Admin Dose 100 MLS/HR; Start 03/03/19 at 20:00 Mupirocin (Bactroban) 1 applic BID TOP Last administered on 03/05/19at 09:42; Admin Dose 1 APPLIC; Start 03/04/19 at 13:30; Stop 03/14/19 at 13:29 Fluconazole (Diflucan) 100 mg DAILY PO Last administered on 03/05/19at 09:41; Admin Dose 100 MG; Start 03/04/19 at 13:00 Potassium Chloride 100 ml @ 50 mls/hr Q4H IVPB Last administered on 03/05/19at 11:14; Admin Dose 50 MLS/HR; Start 03/05/19 at 06:30; Stop 03/05/19 at 20:29 Vancomycin HCl 250 ml @ 125 mls/hr ONCE IVPB ; Start 03/05/19 at 14:00; Stop 03/05/19 at 23:59 ANITA VIERA NP Mar 05, 2019 13:18
--- NOTE | 2019-03-05 13:55 | PN ---
Date/Time of Note Date/Time of Note DATE: 03/05/19 TIME: 13:54 Assessment/Plan VTE Prophylaxis Risk score (from [facility] [place])>0 risk: 9 SCD applied (from [facility] [place]): No SCD contraindicated: other Pharmacological prophylaxis: LMWH Lines/Catheters IV Catheter Type (from [facility]): PICC Line Central line still needed: Yes Urinary Cath still in place: Yes Reason Cath still needed: skin wounds contaminated by urine Assessment/Plan Hospital Course 1) hyperkalemia - treat - secondary to renal failure - monitor 2) renal failure - appreciate nephrology help - patient may need to be started on hemodialysis 3) altered level of consciousness - probably seconardary to #2 - intubated for airway protection Result Diagram: 03/05/19 0511 03/05/19 0511 Results 24hrs Laboratory Tests Test 03/04/19 15:49 03/05/19 04:00 03/05/19 05:11 Sodium Level 150 H 155 H Potassium Level 3.0 L 2.8 *L Chloride Level 113 H 118 H Carbon Dioxide Level 30 31 Anion Gap 7 6 Blood Urea Nitrogen 126 H 116 H Creatinine 2.83 H 2.44 H Est Glomerular Filtrat Rate mL/min Glucose Level 115 139 Calcium Level 7.4 L 7.4 L Random Vancomycin Level 13.3 White Blood Count 7.9 Red Blood Count 3.13 L Hemoglobin 9.4 L Hematocrit 30.5 L Mean Corpuscular Volume 97.4 Mean Corpuscular Hemoglobin 30.0 Mean Corpuscular Hemoglobin Concent 30.8 L Red Cell Distribution Width 16.1 H Platelet Count 60 #L Mean Platelet Volume 10.7 H Immature Granulocytes % 3.700 H Neutrophils % 73.7 Lymphocytes % 8.4 L Monocytes % 13.1 H Eosinophils % 0.1 Basophils % 1.0 Nucleated Red Blood Cells % 0.4 H Immature Granulocytes # 0.290 H Neutrophils # 5.8 Lymphocytes # 0.7 L Monocytes # 1.0 H Eosinophils # 0.0 Basophils # 0.1 Nucleated Red Blood Cells # 0.0 Phosphorus Level 5.1 H Magnesium Level 3.4 H Total Bilirubin 1.2 Direct Bilirubin 0.00 Indirect Bilirubin 1.2 H Aspartate Amino Transf (AST/SGOT) 55 H Alanine Aminotransferase (ALT/SGPT) 52 Alkaline Phosphatase 250 H Total Protein 5.1 L Albumin 2.4 L Globulin 2.70 Albumin/Globulin Ratio 0.88 Subjective 24 Hr Interval Summary Free Text/Dictation Patient comes in with worsening renal function, is sedated Exam/Review of Systems Exam Vitals Vital Signs Date Temp Pulse Resp B/P (MAP) Pulse Ox O2 O2 Flow FiO2 Time Delivery Rate 03/05/19 72 12:00 03/05/19 20 99 30 08:00 03/05/19 109/41 Mechanical 06:00 (63) Ventilator 03/05/19 99.0 04:00 03/03/19 15.0 05:48 Intake and Output 03/04/19 03/04/19 03/05/19 1515:00 23:00 07:00 IntakeIntake Total 681.250 ml 1000.0 ml 967.5 ml OutputOutput Total 535 ml 890 ml 640 ml BalanceBalance 146.250 ml 110.0 ml 327.5 ml Constitutional: well developed Head: normocephalic, atraumatic Neck: supple Respiratory: diminished breath sounds Cardiovascular: regular rate and rhythm Gastrointestinal: soft, non-tender Extremities: normal pulses Results Results 24hrs Laboratory Tests Test 03/04/19 15:49 03/05/19 04:00 03/05/19 05:11 Sodium Level 150 H 155 H Potassium Level 3.0 L 2.8 *L Chloride Level 113 H 118 H Carbon Dioxide Level 30 31 Anion Gap 7 6 Blood Urea Nitrogen 126 H 116 H Creatinine 2.83 H 2.44 H Est Glomerular Filtrat Rate mL/min Glucose Level 115 139 Calcium Level 7.4 L 7.4 L Random Vancomycin Level 13.3 White Blood Count 7.9 Red Blood Count 3.13 L Hemoglobin 9.4 L Hematocrit 30.5 L Mean Corpuscular Volume 97.4 Mean Corpuscular Hemoglobin 30.0 Mean Corpuscular Hemoglobin Concent 30.8 L Red Cell Distribution Width 16.1 H Platelet Count 60 #L Mean Platelet Volume 10.7 H Immature Granulocytes % 3.700 H Neutrophils % 73.7 Lymphocytes % 8.4 L Monocytes % 13.1 H Eosinophils % 0.1 Basophils % 1.0 Nucleated Red Blood Cells % 0.4 H Immature Granulocytes # 0.290 H Neutrophils # 5.8 Lymphocytes # 0.7 L Monocytes # 1.0 H Eosinophils # 0.0 Basophils # 0.1 Nucleated Red Blood Cells # 0.0 Phosphorus Level 5.1 H Magnesium Level 3.4 H Total Bilirubin 1.2 Direct Bilirubin 0.00 Indirect Bilirubin 1.2 H Aspartate Amino Transf (AST/SGOT) 55 H Alanine Aminotransferase (ALT/SGPT) 52 Alkaline Phosphatase 250 H Total Protein 5.1 L Albumin 2.4 L Globulin 2.70 Albumin/Globulin Ratio 0.88 Medications Medication Current Medications Dextrose (D50w Syringe) ONCE PRN IV DECREASED GLUCOSE Last administered on 03/02/19at 19:05; Admin Dose 50 ML; Start 03/02/19 at 14:00 Ondansetron HCl (Zofran Inj) 4 mg Q6H PRN IV NAUSEA AND/OR VOMITING; Start 03/02/19 at 14:00 Acetaminophen (Tylenol Liquid) 650 mg Q6H PRN PO PAIN LEVEL 1-3 OR FEVER; Start 03/02/19 at 14:00 Morphine Sulfate (morphine) 2 mg Q4H PRN IV PAIN LEVEL 7-10; Start 03/02/19 at 14:00 Famotidine (Pepcid Iv) 20 mg DAILY IV Last administered on 03/05/19at 09:41; Admin Dose 20 MG; Start 03/02/19 at 14:30 Enoxaparin Sodium (Lovenox) 30 mg DAILY SC Last administered on 03/04/19at 09:03; Admin Dose 30 MG; Start 03/03/19 at 09:00 Clonidine (Catapres) 0.2 mg Q6H PRN PO ELEVATED BLOOD PRESSURE; Start 03/02/19 at 18:00 Hydralazine HCl (Apresoline) 10 mg Q4H PRN IV SBP more than 150 mm hg ; Start 03/02/19 at 23:38 Fentanyl 100 ml @ 2.5 mls/hr TITRATE IV Last administered on 03/04/19at 02:26; Admin Dose 2.5 MLS/HR; Start 03/03/19 at 09:30 Citric Acid/ Sodium Citrate (Bicitra) 30 ml TID NGT Last administered on at 13:38; Admin Dose 30 ML; Start 03/03/19 at 10:30 Norepinephrine 250 ml @ 1.875 mls/ hr TITRATE IV Last administered on 03/03/19at 14:15; Admin Dose 3.75 MLS/HR; Start 03/03/19 at 14:00 IV Flush (NS 10 ml) 10 ml Q8 PRN IV IV PROTOCOL; Start 03/03/19 at 15:30 Miscellaneous Information 1 ea NOTE XX ; Start 03/03/19 at 15:30 Glucose (Glutose) 15 gm Q15M PRN PO DECREASED GLUCOSE; Start 03/03/19 at 15:30 Glucose (Glutose) 22.5 gm Q15M PRN PO DECREASED GLUCOSE; Start 03/03/19 at 15:30 Dextrose (D50w Syringe) 25 ml Q15M PRN IV DECREASED GLUCOSE; Start 03/03/19 at 15:30 Dextrose (D50w Syringe) 50 ml Q15M PRN IV DECREASED GLUCOSE; Start 03/03/19 at 15:30 Glucagon (Glucagen) 1 mg Q15M PRN IM DECREASED GLUCOSE; Start 03/03/19 at 15:30 Glucose (Glutose) 15 gm Q15M PRN BUCCAL DECREASED GLUCOSE; Start 03/03/19 at 15:30 Vancomycin HCl (Vanco Iv Per Pharmacy) VANCOMYCIN PER PHARMACY PER PROTOCOL XX ; Start 03/03/19 at 17:30 Sodium Chloride 1,000 ml @ 100 mls/hr Q10H IV Last administered on 03/05/19at 13:37; Admin Dose 100 MLS/HR; Start 03/03/19 at 18:00 Meropenem/Sodium Chloride 50 ml @ 100 mls/hr Q12H IVPB Last administered on 03/05/19at 09:41; Admin Dose 100 MLS/HR; Start 03/03/19 at 20:00 Mupirocin (Bactroban) 1 applic BID TOP Last administered on 03/05/19at 09:42; Admin Dose 1 APPLIC; Start 03/04/19 at 13:30; Stop 03/14/19 at 13:29 Fluconazole (Diflucan) 100 mg DAILY PO Last administered on 03/05/19 09:41; Admin Dose 100 MG; Start 03/04/19 at 13:00 Potassium Chloride 100 ml @ 50 mls/hr Q4H IVPB Last administered on 03/05/19at 11:14; Admin Dose 50 MLS/HR; Start 03/05/19 at 06:30; Stop 03/05/19 at 20:29 Vancomycin HCl 250 ml @ 125 mls/hr ONCE IVPB Last administered on 03/05/19at 13:38; Admin Dose 125 MLS/HR; Start 03/05/19 at 14:00; Stop 03/05/19 at 23:59 Silver Sulfadiazine (Thermazene 1% 25 Gm) 1 applic BID TOP ; Start 03/05/19 at 15:00 VERNON COWART Mar 05, 2019 13:55
[2019-03-05] MEDS ORDERED: VANCOMYCIN 1 GM 250 ML IVPB SCH (14:00)
[2019-03-05] MEDS ORDERED: SILVER SULFADIAZINE 1% 25 GM CR TOP SCH (15:00)
[2019-03-05] MEDS: D5W + KCL 20 MEQ 1,000 ML IV SCH (21:27)
[2019-03-06] VITALS (35 sets, daily range): BP systolic 89–119; BP diastolic 37–65; PULSE 56–76; RESP 16–25
[2019-03-06] MEDS: ENOXAPARIN 30 MG/0.3 ML SYG SC SCH (09:00)
[2019-03-06] MEDS: FAMOTIDINE 20 MG INJ IV SCH (09:04)
[2019-03-06] MEDS: CITRIC ACID/NA CITRATE 30 ML CUP NGT SCH ×3 (09:04→20:40)
[2019-03-06] MEDS: FLUCONAZOLE 100 MG TAB PO SCH (09:04)
[2019-03-06] MEDS: D5W + KCL 20 MEQ 1,000 ML IV SCH ×2 (09:04→20:44)
[2019-03-06] MEDS: MEROPENEM 500MG/50 ML (PMX) 50 ML IVPB SCH (09:04)
[2019-03-06] MEDS: MUPIROCIN 2% 22 GM OINT TOP SCH ×2 (09:05→20:40)
--- NOTE | 2019-03-06 09:09 | CONS ---
Assessment/Plan Assessment/Plan Assessment/Plan (Daily) Ventilator setting; AC of 18, tidal volume 400, PEEP of 5, 30% FiO2. Assessment and recommendations; 1. Patient admitted with acute renal insufficiency with hyperkalemia as well as acute encephalopathy requiring intubation. 2. Bilateral lower extremity cellulitis, currently on appropriate antimicrobial regimen with clinical improvement. 3. Anemia and severe thrombocytopenia. 4. Persistent encephalopathy, likely exacerbated by acute renal insufficiency as well as sedative administration. Continue current supportive care. Obtain follow-up chest x-ray. Antibiotics per ID recommendations. Patient's family has declined hemodialysis but the patient any ways does not need it as of now. Urine output is improving. Prognosis is guarded. 35 minutes of critical care time was spent evaluating the patient. Consultation Date/Type/Reason Admit Date/Time Mar 02, 2019 at 13:39 Initial Consult Date 03/03/19 Type of Consult Pulmonary/critical care Patient is a 79-year-old female who was brought in by family to the hospital with worsening overall mental status and failure to thrive. Patient was transferred to ICU. Patient was on 100% nonrebreather and I was asked to evaluate the patient. The patient was completely unresponsive and was showing tachypnea. It was decided to electively intubate the patient which was done readily at bedside. Patient was unable to give any history by herself whatsoever. History is been obtained from medical records. Past medical history; 1. History of multiple admissions to hospital for various reasons. 2. History of Parkinson's disease. 3. Hypothyroidism. 4. CHF. 5. COPD. 6. Chronic renal insufficiency. 7. Severe peripheral vascular disease. Medications; reviewed. Allergies; none. Social history; patient has a history of smoking. Family history; patient has a supportive niece. Lives at home. Occupational history; not available. Review of system; unable to be obtained. General exam; elderly woman, unresponsive, lethargic. Tachypneic. On 100% nonrebreather mask. Requesting Provider: LISA MATA MD Date/Time of Note DATE: 03/06/19 TIME: 09:05 24 HR Interval Summary Free Text/Dictation Patient's condition is critical. Patient has been off sedation since yesterday morning and remains completely unresponsive. She however remains hemodynamically stable. General exam; elderly lady, orally intubated, unresponsive, currently in no distress. Exam/Review of Systems Exam Vitals Vital Signs Date Temp Pulse Resp B/P (MAP) Pulse Ox O2 O2 Flow FiO2 Time Delivery Rate 03/06/19 69 08:00 03/06/19 107/48 95 Mechanical 06:00 (67) Ventilator 03/06/19 30 05:00 03/06/19 98.9 04:00 03/03/19 15.0 05:48 Intake and Output 03/05/19 03/05/19 03/06/19 1515:00 23:00 07:00 IntakeIntake Total 1438.75 ml 1132.5 ml 740 ml OutputOutput Total 640 ml 945 ml 620 ml BalanceBalance 798.75 ml 187.5 ml 120 ml Exam H ENT exam; supple neck, orally intubated. Patient does have multiple carious teeth. No neck masses. Pupils are small bilaterally. Nasogastric tube in place. Chest exam; diminished but clear breath sounds. S1-S2 audible, no murmurs. Regular rhythm. Abdomen exam; soft, no organomegaly. Bowel sounds are audible. Extremity exam; trace lower extremity edema with improving bilateral lower extremity cellulitis. Patient does have patchy ecchymosis. PHYSICIAN RECRUITER exam; patient remains unresponsive. Results Result Diagram: 03/05/1951003/05/19510 Medications Medication Current Medications Dextrose (D50w Syringe) ONCE PRN IV DECREASED GLUCOSE Last administered on 03/02/19at 19:05; Admin Dose 50 ML; Start 03/02/19 at 14:00 Ondansetron HCl (Zofran Inj) 4 mg Q6H PRN IV NAUSEA AND/OR VOMITING; Start 03/02/19 at 14:00 Acetaminophen (Tylenol Liquid) 650 mg Q6H PRN PO PAIN LEVEL 1-3 OR FEVER; Start 03/02/19 at 14:00 Morphine Sulfate (morphine) 2 mg Q4H PRN IV PAIN LEVEL 7-10; Start 03/02/19 at 14:00 Famotidine (Pepcid Iv) 20 mg DAILY IV Last administered on 03/05/19at 09:41; Admin Dose 20 MG; Start 03/02/19 at 14:30 Enoxaparin Sodium (Lovenox) 30 mg DAILY SC Last administered on 03/04/19at 09:03; Admin Dose 30 MG; Start 03/03/19 at 09:00 Clonidine (Catapres) 0.2 mg Q6H PRN PO ELEVATED BLOOD PRESSURE; Start 03/02/19 at 18:00 Hydralazine HCl (Apresoline) 10 mg Q4H PRN IV SBP more than 150 mm hg ; Start 03/02/19 at 23:38 Fentanyl 100 ml @ 2.5 mls/hr TITRATE IV Last administered on 03/04/19at 02:26; Admin Dose 2.5 MLS/HR; Start 03/03/19 at 09:30 Citric Acid/ Sodium Citrate (Bicitra) 30 ml TID NGT Last administered on 03/05/19at 21:27; Admin Dose 30 ML; Start 03/03/19 at 10:30 Norepinephrine 250 ml @ 1.875 mls/ hr TITRATE IV Last administered on 03/03/19at 14:15; Admin Dose 3.75 MLS/HR; Start 03/03/19 at 14:00 IV Flush (NS 10 ml) 10 ml Q8 PRN IV IV PROTOCOL; Start 03/03/19 at 15:30 Miscellaneous Information 1 ea NOTE XX ; Start 03/03/19 at 15:30 Glucose (Glutose) 15 gm Q15M PRN PO DECREASED GLUCOSE; Start 03/03/19 at 15:30 Glucose (Glutose) 22.5 gm Q15M PRN PO DECREASED GLUCOSE; Start 03/03/19 at 15:30 Dextrose (D50w Syringe) 25 ml Q15M PRN IV DECREASED GLUCOSE; Start 03/03/19 at 15:30 Dextrose (D50w Syringe) 50 ml Q15M PRN IV DECREASED GLUCOSE; Start 03/03/19 at 15:30 Glucagon (Glucagen) 1 mg Q15M PRN IM DECREASED GLUCOSE; Start 03/03/19 at 15:30 Glucose (Glutose) 15 gm Q15M PRN BUCCAL DECREASED GLUCOSE; Start 03/03/19 at 15:30 Vancomycin HCl (Vanco Iv Per Pharmacy) VANCOMYCIN PER PHARMACY PER PROTOCOL XX ; Start 03/03/19 at 17:30 Meropenem/Sodium Chloride 50 ml @ 100 mls/hr Q12H IVPB Last administered on 03/05/19at 21:26; Admin Dose 100 MLS/HR; Start 03/03/19 at 20:00 Mupirocin (Bactroban) 1 applic BID TOP Last administered on 03/05/19 21:27; Admin Dose 1 APPLIC; Start 03/04/19 at 13:30; Stop 03/14/19 at 13:29 Fluconazole (Diflucan) 100 mg DAILY PO Last administered on 03/05/19 09:41; Admin Dose 100 MG; Start 03/04/19 at 13:00 Potassium Chloride/Dextrose 1,000 ml @ 80 mls/hr [id number] IV Last administered on 03/05/19 21:27; Admin Dose 80 MLS/HR; Start 03/05/19 at 19:00 GABRIEL PRESLEY Mar 06, 2019 09:09
[2019-03-06] MEDS: POTASSIUM CHLORIDE 20 MEQ POWDER FOR ORAL SOLN NGT SCH ×3 (11:13→19:51)
--- NOTE | 2019-03-06 11:14 | PN ---
Date/Time of Note Date/Time of Note DATE: 03/06/19 TIME: 11:13 Assessment/Plan VTE Prophylaxis Risk score (from [facility] [place] risk: 11 SCD applied (from [facility] [place] No SCD contraindicated: other Pharmacological prophylaxis: LMWH Lines/Catheters IV Catheter Type (from [facility]): PICC Line Central line still needed: Yes Urinary Cath still in place: Yes Reason Cath still needed: skin wounds contaminated by urine Assessment/Plan Hospital Course 1) hyperkalemia - treat - secondary to renal failure - monitor 2) renal failure - appreciate nephrology help - patient may need to be started on hemodialysis 3) altered level of consciousness - probably seconardary to #2 - intubated for airway protection Result Diagram: 03/06/19 0915 03/06/19 0916 Results 24hrs Laboratory Tests Test 03/06/19 09:15 03/06/19 09:16 White Blood Count 8.6 Red Blood Count 2.51 L Hemoglobin 7.6 L Hematocrit 25.4 L Mean Corpuscular Volume 101.2 H Mean Corpuscular Hemoglobin 30.3 Mean Corpuscular Hemoglobin Concent 29.9 L Red Cell Distribution Width 15.9 H Platelet Count 57 L Mean Platelet Volume 10.6 H Immature Granulocytes % 3.600 H Neutrophils % 73.3 Lymphocytes % 8.9 L Monocytes % 12.6 H Eosinophils % 1.1 Basophils % 0.5 Nucleated Red Blood Cells % 0.2 H Immature Granulocytes # 0.310 H Neutrophils # 6.3 Lymphocytes # 0.8 Monocytes # 1.1 H Eosinophils # 0.1 Basophils # 0.0 Nucleated Red Blood Cells # 0.0 Sodium Level 154 H Potassium Level 2.9 *L Chloride Level 128 H Carbon Dioxide Level 26 Anion Gap 0 L Blood Urea Nitrogen 66 #H Creatinine 1.45 H Est Glomerular Filtrat Rate mL/min Glucose Level 124 Calcium Level 5.8 *L Subjective 24 Hr Interval Summary Free Text/Dictation Patient remain unarousable, on vent Exam/Review of Systems Exam Vitals Vital Signs Date Temp Pulse Resp B/P (MAP) Pulse Ox O2 O2 Flow FiO2 Time Delivery Rate 03/06/19 69 21 112/49 94 Mechanical 10:00 (70) Ventilator 03/06/19 30 09:10 03/06/19 99.2 08:00 03/03/19 15.0 05:48 Intake and Output 03/05/19 03/05/19 03/06/19 1515:00 23:00 07:00 IntakeIntake Total 1438.75 ml 1132.5 ml 740 ml OutputOutput Total 640 ml 945 ml 620 ml BalanceBalance 798.75 ml 187.5 ml 120 ml Constitutional: well developed Head: normocephalic, atraumatic Neck: supple Respiratory: diminished breath sounds Cardiovascular: regular rate and rhythm Gastrointestinal: soft, non-tender Extremities: normal pulses Results Results 24hrs Laboratory Tests Test 03/06/19 09:15 03/06/19 09:16 White Blood Count 8.6 Red Blood Count 2.51 L Hemoglobin 7.6 L Hematocrit 25.4 L Mean Corpuscular Volume 101.2 H Mean Corpuscular Hemoglobin 30.3 Mean Corpuscular Hemoglobin Concent 29.9 L Red Cell Distribution Width 15.9 H Platelet Count 57 L Mean Platelet Volume 10.6 H Immature Granulocytes % 3.600 H Neutrophils % 73.3 Lymphocytes % 8.9 L Monocytes % 12.6 H Eosinophils % 1.1 Basophils % 0.5 Nucleated Red Blood Cells % 0.2 H Immature Granulocytes # 0.310 H Neutrophils # 6.3 Lymphocytes # 0.8 Monocytes # 1.1 H Eosinophils # 0.1 Basophils # 0.0 Nucleated Red Blood Cells # 0.0 Sodium Level 154 H Potassium Level 2.9 *L Chloride Level 128 H Carbon Dioxide Level 26 Anion Gap 0 L Blood Urea Nitrogen 66 #H Creatinine 1.45 H Est Glomerular Filtrat Rate mL/min Glucose Level 124 Calcium Level 5.8 *L Medications Medication Current Medications Dextrose (D50w Syringe) ONCE PRN IV DECREASED GLUCOSE Last administered on 03/02/19at 19:05; Admin Dose 50 ML; Start 03/02/19 at 14:00 Ondansetron HCl (Zofran Inj) 4 mg Q6H PRN IV NAUSEA AND/OR VOMITING; Start 03/02/19 at 14:00 Acetaminophen (Tylenol Liquid) 650 mg Q6H PRN PO PAIN LEVEL 1-3 OR FEVER; Start 03/02/19 at 14:00 Morphine Sulfate (morphine) 2 mg Q4H PRN IV PAIN LEVEL 7-10; Start 03/02/19 at 14:00 Famotidine (Pepcid Iv) 20 mg DAILY IV Last administered on 03/06/19at 09:04; Admin Dose 20 MG; Start 03/02/19 at 14:30 Clonidine (Catapres) 0.2 mg Q6H PRN PO ELEVATED BLOOD PRESSURE; Start 03/02/19 at 18:00 Hydralazine HCl (Apresoline) 10 mg Q4H PRN IV SBP more than 150 mm hg ; Start 03/02/19 at 23:38 Fentanyl 100 ml @ 2.5 mls/hr TITRATE IV Last administered on 03/04/19at 02:26; Admin Dose 2.5 MLS/HR; Start 03/03/19 at 09:30 Citric Acid/ Sodium Citrate (Bicitra) 30 ml TID NGT Last administered on 03/06/19 09:04; Admin Dose 30 ML; Start 03/03/19 at 10:30 Norepinephrine 250 ml @ 1.875 mls/ hr TITRATE IV Last administered on 03/03/19at 14:15; Admin Dose 3.75 MLS/HR; Start 03/03/19 at 14:00 IV Flush (NS 10 ml) 10 ml Q8 PRN IV IV PROTOCOL; Start 03/03/19 at 15:30 Miscellaneous Information 1 ea NOTE XX ; Start 03/03/19 at 15:30 Glucose (Glutose) 15 gm Q15M PRN PO DECREASED GLUCOSE; Start 03/03/19 at 15:30 Glucose (Glutose) 22.5 gm Q15M PRN PO DECREASED GLUCOSE; Start 03/03/19 at 15:30 Dextrose (D50w Syringe) 25 ml Q15M PRN IV DECREASED GLUCOSE; Start 03/03/19 at 15:30 Dextrose (D50w Syringe) 50 ml Q15M PRN IV DECREASED GLUCOSE; Start 03/03/19 at 15:30 Glucagon (Glucagen) 1 mg Q15M PRN IM DECREASED GLUCOSE; Start 03/03/19 at 15:30 Glucose (Glutose) 15 gm Q15M PRN BUCCAL DECREASED GLUCOSE; Start 03/03/19 at 15:30 Vancomycin HCl (Vanco Iv Per Pharmacy) VANCOMYCIN PER PHARMACY PER PROTOCOL XX ; Start 03/03/19 at 17:30 Meropenem/Sodium Chloride 50 ml @ 100 mls/hr Q12H IVPB Last administered on 03/06/19at 09:04; Admin Dose 100 MLS/HR; Start 03/03/19 at 20:00 Mupirocin (Bactroban) 1 applic BID TOP Last administered on 03/06/19at 09:05; Admin Dose 1 APPLIC; Start 03/04/19 at 13:30; Stop 03/14/19 at 13:29 Fluconazole (Diflucan) 100 mg DAILY PO Last administered on 03/06/19at 09:04; Admin Dose 100 MG; Start 03/04/19 at 13:00 Potassium Chloride/Dextrose 1,000 ml @ 80 mls/hr [id number] IV Last administered on 03/06/19at 09:04; Admin Dose 80 MLS/HR; Start 03/05/19 at 19:00 Potassium Chloride (Potassium Chloride Pwd/Soln) 40 meq Q4H NGT ; Start 03/06/19 at 11:00; Stop 03/06/19 at 19:01 VERNON COWART Mar 06, 2019 11:14
--- NOTE | 2019-03-06 11:26 | CONS ---
Assessment/Plan Assessment/Plan Hospital Course (Demo Recall) ID PROGRESS NOTE CURRENT ABX: DAY# => Vanco IV + Diflucan + Merrem 03/06/[id number] INTERVAL SUMMARY: * Orally intubated, noncommunicative * New PICC, (+)NGT in place * BLEXT edema resolved BLEXT cellulitis much improved * Left lateral foot open wound == chronic poor healing * 03/06/19 CXR: Increased generalized atelectasis and vascular congestion. MICRO * 03/03/19 Urine Cx (+) URINE CULTURE Preliminary Organism 1 K.PNEUMONIAE SSP PNEUMONIAE COLONY COUNT 50,000 - 60,000 CFU/ml Organism 2 YEAST COLONY COUNT >100,000 CFU/ml K PNE SPP M.I.C. RX --------- --- CEFAZOLIN S CEFOTAXIME S CIPROFLOXACIN <=0.25 S GENTAMICIN <=1 S LEVOFLOXACIN <=0.12 S NITROFURANTOIN 128 R TOBRAMYCIN <=1 S TRIMETHOPRIM/SULFAMETHOXAZOLE <=20 S * 03/02/19 Urine Cx (+) URINE CULTURE Final Organism 1 SUDHAKAR ALBICANS COLONY COUNT >100,000 CFU/ml * 03/02/19 (+)MRSA * 03/02/19 BCx (-) PHYSICAL EXAMINATION: GENERAL: Obese F resting comfortably HEENT: AT, NC, anicteric NECK: Supple, trach CHEST: Equal chest rise bilaterally, without dyspnea HEART: RRR pulse ABDOMEN: Soft, NT EXT: Warm, BLEXT edema/erythema == resolving * Right lateral open foot wound == unstageable == poor wound healing SKIN: No rash, no diaphoresis ID ASSESSMENT: 77 yo F w/ PMHx Parkinson's, dementia, obesity admit [facility] ICU with: 1. Sepsis criteria on admission with Hypotension + Leukocytosis due to acute UTI 2. Hypoxic respiratory insufficiency -> 3. Possible recurrent aspiration PNA ? == risk factors == DOREEN 4. Exacerbation COPD w/ Hx of DOREEN vs Obesity hypoventilation syndrome 5. Acute recurrent on chronic diastolic heart failure / Hx of cardiomyopathy with congestive heart failure 6 Acute recurrent Cellulitis => RLEXT cellulitis > LLEXT => RESOLVING * Chronic recurrent bilateral lower extremity edema w/venous stasis wounds /dermatitis/ cellulitis * Venous insufficiency: AUG 2017 Reflux seen in the greater saphenous vein from the upper calf to the ankle on the right. 9. BLEXT PAD: AUG 2017 => Mild atherosclerotic plaque is seen scattered throughout the lower extremity arterial tree bilaterally. 10. Right lateral open foot wound == unstageable == poor wound healing == => CHRONIC POOR WOUND HEALING 11. Anemia of chronic disease 12. Acute renal failure / CKD == worse with prior ABX + Diuretics last admission ( - )MRSA Nares ABX ALLERGIES: KNDA INVASIVES: CURRENT ABX: DAY# ==> Vanco IV + Diflucan + Merrem ID RECOMMENDATIONS/PLAN: 1. Change Merrem to Ceftriaxone -- Narrow ABX spectrum . .. Consultation Date/Type/Reason Admit Date/Time Mar 02, 2019 at 13:39 Initial Consult Date 03/03/19 Requesting Provider: LISA MATA MD Date/Time of Note DATE: 03/06/19 TIME: 11:12 Exam/Review of Systems Exam Vitals Vital Signs Date Temp Pulse Resp B/P (MAP) Pulse Ox O2 O2 Flow FiO2 Time Delivery Rate 03/06/19 69 21 112/49 94 Mechanical 10:00 (70) Ventilator 03/06/19 30 09:10 03/06/19 99.2 08:00 03/03/19 15.0 05:48 Intake and Output 03/05/19 03/05/19 03/06/19 1515:00 23:00 07:00 IntakeIntake Total 1438.75 ml 1132.5 ml 740 ml OutputOutput Total 640 ml 945 ml 620 ml BalanceBalance 798.75 ml 187.5 ml 120 ml Results Result Diagram: 03/06/19 0915 03/06/19 0916 Results 24hrs Laboratory Tests Test 03/06/19 09:15 03/06/19 09:16 White Blood Count 8.6 Red Blood Count 2.51 L Hemoglobin 7.6 L Hematocrit 25.4 L Mean Corpuscular Volume 101.2 H Mean Corpuscular Hemoglobin 30.3 Mean Corpuscular Hemoglobin Concent 29.9 L Red Cell Distribution Width 15.9 H Platelet Count 57 L Mean Platelet Volume 10.6 H Immature Granulocytes % 3.600 H Neutrophils % 73.3 Lymphocytes % 8.9 L Monocytes % 12.6 H Eosinophils % 1.1 Basophils % 0.5 Nucleated Red Blood Cells % 0.2 H Immature Granulocytes # 0.310 H Neutrophils # 6.3 Lymphocytes # 0.8 Monocytes # 1.1 H Eosinophils # 0.1 Basophils # 0.0 Nucleated Red Blood Cells # 0.0 Sodium Level 154 H Potassium Level 2.9 *L Chloride Level 128 H Carbon Dioxide Level 26 Anion Gap 0 L Blood Urea Nitrogen 66 #H Creatinine 1.45 H Est Glomerular Filtrat Rate mL/min Glucose Level 124 Calcium Level 5.8 *L Medications Medication Current Medications Dextrose (D50w Syringe) ONCE PRN IV DECREASED GLUCOSE Last administered on 03/02/19at 19:05; Admin Dose 50 ML; Start 03/02/19 at 14:00 Ondansetron HCl (Zofran Inj) 4 mg Q6H PRN IV NAUSEA AND/OR VOMITING; Start 03/02/19 at 14:00 Acetaminophen (Tylenol Liquid) 650 mg Q6H PRN PO PAIN LEVEL 1-3 OR FEVER; Start 03/02/19 at 14:00 Morphine Sulfate (morphine) 2 mg Q4H PRN IV PAIN LEVEL 7-10; Start 03/02/19 at 14:00 Famotidine (Pepcid Iv) 20 mg DAILY IV Last administered on 03/06/19at 09:04; Admin Dose 20 MG; Start 03/02/19 at 14:30 Clonidine (Catapres) 0.2 mg Q6H PRN PO ELEVATED BLOOD PRESSURE; Start 03/02/19 at 18:00 Hydralazine HCl (Apresoline) 10 mg Q4H PRN IV SBP more than 150 mm hg ; Start 03/02/19 at 23:38 Fentanyl 100 ml @ 2.5 mls/hr TITRATE IV Last administered on 03/04/19at 02:26; Admin Dose 2.5 MLS/HR; Start 03/03/19 at 09:30 Citric Acid/ Sodium Citrate (Bicitra) 30 ml TID NGT Last administered on 03/06/19at 09:04; Admin Dose 30 ML; Start 03/03/19 at 10:30 Norepinephrine 250 ml @ 1.875 mls/ hr TITRATE IV Last administered on 03/03/19at 14:15; Admin Dose 3.75 MLS/HR; Start 03/03/19 at 14:00 IV Flush (NS 10 ml) 10 ml Q8 PRN IV IV PROTOCOL; Start 03/03/19 at 15:30 Miscellaneous Information 1 ea NOTE XX ; Start 03/03/19 at 15:30 Glucose (Glutose) 15 gm Q15M PRN PO DECREASED GLUCOSE; Start 03/03/19 at 15:30 Glucose (Glutose) 22.5 gm Q15M PRN PO DECREASED GLUCOSE; Start 03/03/19 at 15:30 Dextrose (D50w Syringe) 25 ml Q15M PRN IV DECREASED GLUCOSE; Start 03/03/19 at 15:30 Dextrose (D50w Syringe) 50 ml Q15M PRN IV DECREASED GLUCOSE; Start 03/03/19 at 15:30 Glucagon (Glucagen) 1 mg Q15M PRN IM DECREASED GLUCOSE; Start 03/03/19 at 15:30 Glucose (Glutose) 15 gm Q15M PRN BUCCAL DECREASED GLUCOSE; Start 03/03/19 at 15:30 Vancomycin HCl (Vanco Iv Per Pharmacy) VANCOMYCIN PER PHARMACY PER PROTOCOL XX ; Start 03/03/19 at 17:30 Meropenem/Sodium Chloride 50 ml @ 100 mls/hr Q12H IVPB Last administered on 03/06/19at 09:04; Admin Dose 100 MLS/HR; Start 03/03/19 at 20:00 Mupirocin (Bactroban) 1 applic BID TOP Last administered on 03/06/19at 09:05; Admin Dose 1 APPLIC; Start 03/04/19 at 13:30; Stop 03/14/19 at 13:29 Fluconazole (Diflucan) 100 mg DAILY PO Last administered on 03/06/19at 09:04; Admin Dose 100 MG; Start 03/04/19 at 13:00 Potassium Chloride/Dextrose 1,000 ml @ 80 mls/hr [id number] IV Last administered on 03/06/19at 09:04; Admin Dose 80 MLS/HR; Start 03/05/19 at 19:00 Potassium Chloride (Potassium Chloride Pwd/Soln) 40 meq Q4H NGT ; Start 03/06/19 at 11:00; Stop 03/06/19 at 19:01 LIBIA VERGARA NP Mar 06, 2019 11:24
[2019-03-06] MEDS: ACETAMINOPHEN 650MG/20.3ML CUP PO PRN (12:16)
[2019-03-06] MEDS: CEFTRIAXONE 2 GM/50 ML (PMX) 50 ML IVPB SCH (15:38)
--- NOTE | 2019-03-06 17:24 | CONS ---
Assessment/Plan Assessment/Plan Assessment/Plan (Daily) 1. acute hyperkalemia with K 7.3 on admission - now resolved 2. acute kidney injury on CKD III 2/2 ischemic ATN + prerenal azotemia 3. Severe metabolic acidosis 4. septic shock on admission unclear source at this time 5. H/o COPD 6. H/o diastolic Heart failure with Preserved EF 7. H/o Hypothyroidisk 8. H/o Parkinoson's disease 9. h/o HTN 10. acute hypoxic respiratory failure intubate on ventilator Plan: Ventilator care pulmonary K 2.9- agressive K replacement, makign adequate urine, in Post ATN diuresis IV abx Meropenem and Vancomycin< renally dose all abx and monitoe electrolytes BUN/Cr improved to 66/1.45, Na 154, , IVF D5W with KCl 20mEQ at 80 cc/hr I had discusesd with patient Niece about Pt condition and Explained in her detail about need for dialysis, Due to patient age and comorbidities they decided not have to have HD at this time, they would like to treat conservatively DNR code status will follow up Consultation Date/Type/Reason Admit Date/Time Mar 02, 2019 at 13:39 Initial Consult Date 03/03/19 Type of Consult NEPHROLOGY Requesting Provider: LISA MATA MD Date/Time of Note DATE: 03/06/19 TIME: 17:24 Exam/Review of Systems Exam Vitals Vital Signs Date Temp Pulse Resp B/P (MAP) Pulse Ox O2 O2 Flow FiO2 Time Delivery Rate 03/06/19 67 21 100 30 17:06 03/06/19 96/53 (67) Mechanical 17:00 Ventilator 03/06/19 99.6 16:00 03/03/19 15.0 05:48 Intake and Output 03/05/19 03/05/19 03/06/19 1515:00 23:00 07:00 IntakeIntake Total 1438.75 ml 1132.5 ml 780 ml OutputOutput Total 640 ml 945 ml 620 ml BalanceBalance 798.75 ml 187.5 ml 160 ml Results Result Diagram: 03/06/19 0915 03/06/19 0916 Results 24hrs Laboratory Tests Test 03/06/19 09:15 03/06/19 09:16 03/06/19 09:30 White Blood Count 8.6 Red Blood Count 2.51 L Hemoglobin 7.6 L Hematocrit 25.4 L Mean Corpuscular Volume 101.2 H Mean Corpuscular Hemoglobin 30.3 Mean Corpuscular Hemoglobin Concent 29.9 L Red Cell Distribution Width 15.9 H Platelet Count 57 L Mean Platelet Volume 10.6 H Immature Granulocytes % 3.600 H Neutrophils % 73.3 Lymphocytes % 8.9 L Monocytes % 12.6 H Eosinophils % 1.1 Basophils % 0.5 Nucleated Red Blood Cells % 0.2 H Immature Granulocytes # 0.310 H Neutrophils # 6.3 Lymphocytes # 0.8 Monocytes # 1.1 H Eosinophils # 0.1 Basophils # 0.0 Nucleated Red Blood Cells # 0.0 Sodium Level 154 H Potassium Level 2.9 *L Chloride Level 128 H Carbon Dioxide Level 26 Anion Gap 0 L Blood Urea Nitrogen 66 #H Creatinine 1.45 H Est Glomerular Filtrat Rate mL/min Glucose Level 124 Calcium Level 5.8 *L Magnesium Level 2.6 H Medications Medication Current Medications Dextrose (D50w Syringe) ONCE PRN IV DECREASED GLUCOSE Last administered on 03/02/19at 19:05; Admin Dose 50 ML; Start 03/02/19 at 14:00 Ondansetron HCl (Zofran Inj) 4 mg Q6H PRN IV NAUSEA AND/OR VOMITING; Start 03/02/19 at 14:00 Acetaminophen (Tylenol Liquid) 650 mg Q6H PRN PO PAIN LEVEL 1-3 OR FEVER Last administered on 03/06/19at 12:16; Admin Dose 650 MG; Start 03/02/19 at 14:00 Morphine Sulfate (morphine) 2 mg Q4H PRN IV PAIN LEVEL 7-10; Start 03/02/19 at 14:00 Famotidine (Pepcid Iv) 20 mg DAILY IV Last administered on 03/06/19at 09:04; Admin Dose 20 MG; Start 03/02/19 at 14:30 Clonidine (Catapres) 0.2 mg Q6H PRN PO ELEVATED BLOOD PRESSURE; Start 03/02/19 at 18:00 Hydralazine HCl (Apresoline) 10 mg Q4H PRN IV SBP more than 150 mm hg ; Start 03/02/19 at 23:38 Fentanyl 100 ml @ 2.5 mls/hr TITRATE IV Last administered on 03/04/19at 02:26; Admin Dose 2.5 MLS/HR; Start 03/03/19 at 09:30 Citric Acid/ Sodium Citrate (Bicitra) 30 ml TID NGT Last administered on 03/06/19at 12:16; Admin Dose 30 ML; Start 03/03/19 at 10:30 Norepinephrine 250 ml @ 1.875 mls/ hr TITRATE IV Last administered on 03/03/19at 14:15; Admin Dose 3.75 MLS/HR; Start 03/03/19 at 14:00 IV Flush (NS 10 ml) 10 ml Q8 PRN IV IV PROTOCOL; Start 03/03/19 at 15:30 Miscellaneous Information 1 ea NOTE XX ; Start 03/03/19 at 15:30 Glucose (Glutose) 15 gm Q15M PRN PO DECREASED GLUCOSE; Start 03/03/19 at 15:30 Glucose (Glutose) 22.5 gm Q15M PRN PO DECREASED GLUCOSE; Start 03/03/19 at 15:30 Dextrose (D50w Syringe) 25 ml Q15M PRN IV DECREASED GLUCOSE; Start 03/03/19 at 15:30 Dextrose (D50w Syringe) 50 ml Q15M PRN IV DECREASED GLUCOSE; Start 03/03/19 at 15:30 Glucagon (Glucagen) 1 mg Q15M PRN IM DECREASED GLUCOSE; Start 03/03/19 at 15:30 Glucose (Glutose) 15 gm Q15M PRN BUCCAL DECREASED GLUCOSE; Start 03/03/19 at 15:30 Vancomycin HCl (Vanco Iv Per Pharmacy) VANCOMYCIN PER PHARMACY PER PROTOCOL XX ; Start 03/03/19 at 17:30 Mupirocin (Bactroban) 1 applic BID TOP Last administered on 03/06/19at 09:05; Admin Dose 1 APPLIC; Start 03/04/19 at 13:30; Stop 03/14/19 at 13:29 Fluconazole (Diflucan) 100 mg DAILY PO Last administered on 03/06/19 09:04; Admin Dose 100 MG; Start 03/04/19 at 13:00 Potassium Chloride/Dextrose 1,000 ml @ 80 mls/hr [id number] IV Last administered on 03/06/19 09:04; Admin Dose 80 MLS/HR; Start 03/05/19 at 19:00 Potassium Chloride (Potassium Chloride Pwd/Soln) 40 meq Q4H NGT Last administered on 03/06/19at 15:38; Admin Dose 40 MEQ; Start 03/06/19 at 11:00; Stop 03/06/19 at 19:01 Miscellaneous Information (*Rx Drug Level Order Reminder*) RANDOM VANCO 0500 ONCE XX ; Start 03/07/19 at 05:00; Stop 03/07/19 at 05:01 Ceftriaxone Sodium 50 ml @ 100 mls/hr Q24H IVPB Last administered on 03/06/19at 15:38; Admin Dose 100 MLS/HR; Start 03/06/19 at 14:30 ENRIQUETA HUNG MD Mar 06, 2019 17:24
[2019-03-07] VITALS (36 sets, daily range): BP systolic 93–128; BP diastolic 31–55; PULSE 58–122; RESP 18–30
--- NOTE | 2019-03-07 08:22 | CONS ---
Assessment/Plan Assessment/Plan Assessment/Plan (Daily) 1. acute hyperkalemia with K 7.3 on admission - now resolved 2. acute kidney injury on CKD III 2/2 ischemic ATN + prerenal azotemia 3. Severe metabolic acidosis 4. septic shock on admission unclear source at this time 5. H/o COPD 6. H/o diastolic Heart failure with Preserved EF 7. H/o Hypothyroidisk 8. H/o Parkinoson's disease 9. h/o HTN 10. acute hypoxic respiratory failure intubate on ventilator Plan: Ventilator care pulmonary , remained intubated, on FiO2 30%, PEEP- pt is DNR IV abx Meropenem and PO Fluconazole < renally dose all abx and monitoe electrolytes BUN/Cr improved to 74/1.93,K trended upto 5.5- d/c KCL from IV fluids, continue IVF D5W at 100 cc/hr I had discusesd with patient Niece about Pt condition and Explained in her detail about need for dialysis, Due to patient age and comorbidities they decided not have to have HD at this time, they would like to treat conservatively DNR code status will follow up Consultation Date/Type/Reason Admit Date/Time Mar 02, 2019 at 13:39 Initial Consult Date 03/03/19 Type of Consult NEPHROLOGY Requesting Provider: LISA MATA MD Date/Time of Note DATE: 03/07/19 TIME: 08:22 Exam/Review of Systems Exam Vitals Vital Signs Date Temp Pulse Resp B/P (MAP) Pulse Ox O2 O2 Flow FiO2 Time Delivery Rate 03/07/19 70 20 105/39 100 Mechanical 07:00 (61) Ventilator 03/07/19 30 05:28 03/07/19 98.7 04:00 Intake and Output 03/06/19 03/06/19 03/07/19 1515:00 23:00 07:00 IntakeIntake Total 1220 ml 1040 ml 980 ml OutputOutput Total 385 ml 605 ml 650 ml BalanceBalance 835 ml 435 ml 330 ml Exam Constitutional: intubated on ventilator, Non verbal Respiratory: congested cough, crackles/rales, diminished breath sounds Cardiovascular: regular rate and rhythm, nl pulses Gastrointestinal: soft, non-tender, other (non distended, BS+) Musculoskeletal: muscle weakness, swelling (1+ edema ) Neurological: sedated on ventilator Lymph: nl lymph nodes Results Result Diagram: 03/07/19 0400 03/07/19 0400 Results 24hrs Laboratory Tests Test 03/06/19 09:15 03/06/19 09:16 03/06/19 09:30 03/07/19 04:00 White Blood Count 8.6 11.2 #H Red Blood Count 2.51 L 2.72 L Hemoglobin 7.6 L 8.3 L Hematocrit 25.4 L 28.2 L Mean Corpuscular Volume 101.2 H 103.7 H Mean Corpuscular 30.3 30.5 Hemoglobin Mean Corpuscular 29.9 L 29.4 L Hemoglobin Concent Red Cell Distribution 15.9 H 15.7 H Width Platelet Count 57 L 70 #L Mean Platelet Volume 10.6 H 11.6 H Immature Granulocytes % 3.600 H 2.800 H Neutrophils % 73.3 75.9 Lymphocytes % 8.9 L 8.8 L Monocytes % 12.6 H 10.6 Eosinophils % 1.1 1.3 Basophils % 0.5 0.6 Nucleated Red Blood 0.2 H 0.2 H Cells % Immature Granulocytes # 0.310 H 0.310 H Neutrophils # 6.3 8.5 H Lymphocytes # 0.8 1.0 Monocytes # 1.1 H 1.2 H Eosinophils # 0.1 0.2 Basophils # 0.0 0.1 Nucleated Red Blood 0.0 0.0 Cells # Sodium Level 154 H 155 H Potassium Level 2.9 *L 5.7 #H Chloride Level 128 H 123 H Carbon Dioxide Level 26 34 H Anion Gap 0 L -2 L Blood Urea Nitrogen 66 #H 74 H Creatinine 1.45 H 1.93 H Est Glomerular Filtrat Rate mL/min Glucose Level 124 162 Calcium Level 5.8 *L 7.9 L Magnesium Level 2.6 H 3.1 H Phosphorus Level 2.4 #L Total Bilirubin 0.4 Direct Bilirubin 0.00 Indirect Bilirubin 0.4 Aspartate Amino 39 Transf (AST/SGOT) Alanine 54 Aminotransferase (ALT/SG PT) Alkaline Phosphatase 191 H Total Protein 4.9 L Albumin 2.3 L Globulin 2.60 Albumin/Globulin Ratio 0.88 Medications Medication Current Medications Dextrose (D50w Syringe) ONCE PRN IV DECREASED GLUCOSE Last administered on 03/02/19at 19:05; Admin Dose 50 ML; Start 03/02/19 at 14:00 Ondansetron HCl (Zofran Inj) 4 mg Q6H PRN IV NAUSEA AND/OR VOMITING; Start 03/02/19 at 14:00 Acetaminophen (Tylenol Liquid) 650 mg Q6H PRN PO PAIN LEVEL 1-3 OR FEVER Last administered on 03/06/19at 12:16; Admin Dose 650 MG; Start 03/02/19 at 14:00 Morphine Sulfate (morphine) 2 mg Q4H PRN IV PAIN LEVEL 7-10; Start 03/02/19 at 14:00 Famotidine (Pepcid Iv) 20 mg DAILY IV Last administered on 03/06/19at 09:04; Admin Dose 20 MG; Start 03/02/19 at 14:30 Clonidine (Catapres) 0.2 mg Q6H PRN PO ELEVATED BLOOD PRESSURE; Start 03/02/19 at 18:00 Hydralazine HCl (Apresoline) 10 mg Q4H PRN IV SBP more than 150 mm hg ; Start 03/02/19 at 23:38 Fentanyl 100 ml @ 2.5 mls/hr TITRATE IV Last administered on 03/04/19at 02:26; Admin Dose 2.5 MLS/HR; Start 03/03/19 at 09:30 Citric Acid/ Sodium Citrate (Bicitra) 30 ml TID NGT Last administered on 03/06/19at 20:40; Admin Dose 30 ML; Start 03/03/19 at 10:30 Norepinephrine 250 ml @ 1.875 mls/ hr TITRATE IV Last administered on 03/03/19at 14:15; Admin Dose 3.75 MLS/HR; Start 03/03/19 at 14:00 IV Flush (NS 10 ml) 10 ml Q8 PRN IV IV PROTOCOL; Start 03/03/19 at 15:30 Miscellaneous Information 1 ea NOTE XX ; Start 03/03/19 at 15:30 Glucose (Glutose) 15 gm Q15M PRN PO DECREASED GLUCOSE; Start 03/03/19 at 15:30 Glucose (Glutose) 22.5 gm Q15M PRN PO DECREASED GLUCOSE; Start 03/03/19 at 15:30 Dextrose (D50w Syringe) 25 ml Q15M PRN IV DECREASED GLUCOSE; Start 03/03/19 at 15:30 Dextrose (D50w Syringe) 50 ml Q15M PRN IV DECREASED GLUCOSE; Start 03/03/19 at 15:30 Glucagon (Glucagen) 1 mg Q15M PRN IM DECREASED GLUCOSE; Start 03/03/19 at 15:30 Glucose (Glutose) 15 gm Q15M PRN BUCCAL DECREASED GLUCOSE; Start 03/03/19 at 15:30 Vancomycin HCl (Vanco Iv Per Pharmacy) VANCOMYCIN PER PHARMACY PER PROTOCOL XX ; Start 03/03/19 at 17:30 Mupirocin (Bactroban) 1 applic BID TOP Last administered on 03/06/19at 20:40; Admin Dose 1 APPLIC; Start 03/04/19 at 13:30; Stop 03/14/19 at 13:29 Fluconazole (Diflucan) 100 mg DAILY PO Last administered on 03/06/19at 09:04; Admin Dose 100 MG; Start 03/04/19 at 13:00 Potassium Chloride/Dextrose 1,000 ml @ 80 mls/hr [id number] IV Last administered on 03/06/19at 20:44; Admin Dose 80 MLS/HR; Start 03/05/19 at 19:00 Ceftriaxone Sodium 50 ml @ 100 mls/hr Q24H IVPB Last administered on 03/06/19at 15:38; Admin Dose 100 MLS/HR; Start 03/06/19 at 14:30 ENRIQUETA HUNG MD Mar 07, 2019 08:22
[2019-03-07] MEDS: FLUCONAZOLE 100 MG TAB PO SCH (08:31)
[2019-03-07] MEDS: FAMOTIDINE 20 MG INJ IV SCH (08:31)
[2019-03-07] MEDS: CITRIC ACID/NA CITRATE 30 ML CUP NGT SCH ×3 (08:31→20:25)
[2019-03-07] MEDS: MUPIROCIN 2% 22 GM OINT TOP SCH ×2 (08:32→20:26)
--- NOTE | 2019-03-07 09:33 | PN ---
Date/Time of Note Date/Time of Note DATE: 03/07/19 TIME: 09:32 Assessment/Plan VTE Prophylaxis Risk score (from [facility] [place]0 risk: 11 SCD applied (from [facility] [place] No SCD contraindicated: other Pharmacological prophylaxis: LMWH Lines/Catheters IV Catheter Type (from [facility]): PICC Line Central line still needed: Yes Urinary Cath still in place: Yes Reason Cath still needed: skin wounds contaminated by urine Assessment/Plan Hospital Course 1) hyperkalemia - treat - secondary to renal failure - monitor 2) renal failure - appreciate nephrology help - patient may need to be started on hemodialysis 3) altered level of consciousness - probably seconardary to #2 - intubated for airway protection Result Diagram: 03/07/19 0400 03/07/19 0400 Results 24hrs Laboratory Tests Test 03/07/19 04:00 White Blood Count 11.2 #H Red Blood Count 2.72 L Hemoglobin 8.3 L Hematocrit 28.2 L Mean Corpuscular Volume 103.7 H Mean Corpuscular Hemoglobin 30.5 Mean Corpuscular Hemoglobin Concent 29.4 L Red Cell Distribution Width 15.7 H Platelet Count 70 #L Mean Platelet Volume 11.6 H Immature Granulocytes % 2.800 H Neutrophils % 75.9 Lymphocytes % 8.8 L Monocytes % 10.6 Eosinophils % 1.3 Basophils % 0.6 Nucleated Red Blood Cells % 0.2 H Immature Granulocytes # 0.310 H Neutrophils # 8.5 H Lymphocytes # 1.0 Monocytes # 1.2 H Eosinophils # 0.2 Basophils # 0.1 Nucleated Red Blood Cells # 0.0 Sodium Level 155 H Potassium Level 5.7 #H Chloride Level 123 H Carbon Dioxide Level 34 H Anion Gap -2 L Blood Urea Nitrogen 74 H Creatinine 1.93 H Est Glomerular Filtrat Rate mL/min Glucose Level 162 Calcium Level 7.9 L Phosphorus Level 2.4 #L Magnesium Level 3.1 H Total Bilirubin 0.4 Direct Bilirubin 0.00 Indirect Bilirubin 0.4 Aspartate Amino Transf (AST/SGOT) 39 Alanine Aminotransferase (ALT/SGPT) 54 Alkaline Phosphatase 191 H Total Protein 4.9 L Albumin 2.3 L Globulin 2.60 Albumin/Globulin Ratio 0.88 Random Vancomycin Level 12.3 Subjective 24 Hr Interval Summary Free Text/Dictation Patient remain unresponsive Exam/Review of Systems Exam Vitals Vital Signs Date Temp Pulse Resp B/P (MAP) Pulse Ox O2 O2 Flow FiO2 Time Delivery Rate 03/07/19 98.1 60 20 110/39 100 Mechanical 09:00 (62) Ventilator 03/07/19 30 08:00 Intake and Output 03/06/19 03/06/19 03/07/19 1515:00 23:00 07:00 IntakeIntake Total 1220 ml 1040 ml 1020 ml OutputOutput Total 385 ml 605 ml 650 ml BalanceBalance 835 ml 435 ml 370 ml Constitutional: well developed Head: normocephalic, atraumatic Neck: supple Respiratory: diminished breath sounds Cardiovascular: regular rate and rhythm Gastrointestinal: soft, non-tender Extremities: normal pulses Results Results 24hrs Laboratory Tests Test 03/07/19 04:00 White Blood Count 11.2 #H Red Blood Count 2.72 L Hemoglobin 8.3 L Hematocrit 28.2 L Mean Corpuscular Volume 103.7 H Mean Corpuscular Hemoglobin 30.5 Mean Corpuscular Hemoglobin Concent 29.4 L Red Cell Distribution Width 15.7 H Platelet Count 70 #L Mean Platelet Volume 11.6 H Immature Granulocytes % 2.800 H Neutrophils % 75.9 Lymphocytes % 8.8 L Monocytes % 10.6 Eosinophils % 1.3 Basophils % 0.6 Nucleated Red Blood Cells % 0.2 H Immature Granulocytes # 0.310 H Neutrophils # 8.5 H Lymphocytes # 1.0 Monocytes # 1.2 H Eosinophils # 0.2 Basophils # 0.1 Nucleated Red Blood Cells # 0.0 Sodium Level 155 H Potassium Level 5.7 #H Chloride Level 123 H Carbon Dioxide Level 34 H Anion Gap -2 L Blood Urea Nitrogen 74 H Creatinine 1.93 H Est Glomerular Filtrat Rate mL/min Glucose Level 162 Calcium Level 7.9 L Phosphorus Level 2.4 #L Magnesium Level 3.1 H Total Bilirubin 0.4 Direct Bilirubin 0.00 Indirect Bilirubin 0.4 Aspartate Amino Transf (AST/SGOT) 39 Alanine Aminotransferase (ALT/SGPT) 54 Alkaline Phosphatase 191 H Total Protein 4.9 L Albumin 2.3 L Globulin 2.60 Albumin/Globulin Ratio 0.88 Random Vancomycin Level 12.3 Medications Medication Current Medications Dextrose (D50w Syringe) ONCE PRN IV DECREASED GLUCOSE Last administered on 03/02/19at 19:05; Admin Dose 50 ML; Start 03/02/19 at 14:00 Ondansetron HCl (Zofran Inj) 4 mg Q6H PRN IV NAUSEA AND/OR VOMITING; Start 03/02/19 at 14:00 Acetaminophen (Tylenol Liquid) 650 mg Q6H PRN PO PAIN LEVEL 1-3 OR FEVER Last administered on 03/06/19at 12:16; Admin Dose 650 MG; Start 03/02/19 at 14:00 Morphine Sulfate (morphine) 2 mg Q4H PRN IV PAIN LEVEL 7-10; Start 03/02/19 at 14:00 Famotidine (Pepcid Iv) 20 mg DAILY IV Last administered on 03/07/19at 08:31; Admin Dose 20 MG; Start 03/02/19 at 14:30 Clonidine (Catapres) 0.2 mg Q6H PRN PO ELEVATED BLOOD PRESSURE; Start 03/02/19 at 18:00 Hydralazine HCl (Apresoline) 10 mg Q4H PRN IV SBP more than 150 mm hg ; Start 03/02/19 at 23:38 Fentanyl 100 ml @ 2.5 mls/hr TITRATE IV Last administered on 03/04/19at 02:26; Admin Dose 2.5 MLS/HR; Start 03/03/19 at 09:30 Citric Acid/ Sodium Citrate (Bicitra) 30 ml TID NGT Last administered on 03/07/19at 08:31; Admin Dose 30 ML; Start 03/03/19 at 10:30 Norepinephrine 250 ml @ 1.875 mls/ hr TITRATE IV Last administered on 03/03/19 at 14:15; Admin Dose 3.75 MLS/HR; Start 03/03/19 at 14:00 IV Flush (NS 10 ml) 10 ml Q8 PRN IV IV PROTOCOL; Start 03/03/19 at 15:30 Miscellaneous Information 1 ea NOTE XX ; Start 03/03/19 at 15:30 Glucose (Glutose) 15 gm Q15M PRN PO DECREASED GLUCOSE; Start 03/03/19 at 15:30 Glucose (Glutose) 22.5 gm Q15M PRN PO DECREASED GLUCOSE; Start 03/03/19 at 15:30 Dextrose (D50w Syringe) 25 ml Q15M PRN IV DECREASED GLUCOSE; Start 03/03/19 at 15:30 Dextrose (D50w Syringe) 50 ml Q15M PRN IV DECREASED GLUCOSE; Start 03/03/19 at 15:30 Glucagon (Glucagen) 1 mg Q15M PRN IM DECREASED GLUCOSE; Start 03/03/19 at 15:30 Glucose (Glutose) 15 gm Q15M PRN BUCCAL DECREASED GLUCOSE; Start 03/03/19 at 15:30 Vancomycin HCl (Vanco Iv Per Pharmacy) VANCOMYCIN PER PHARMACY PER PROTOCOL XX ; Start 03/03/19 at 17:30 Mupirocin (Bactroban) 1 applic BID TOP Last administered on 03/07/19at 08:32; Admin Dose 1 APPLIC; Start 03/04/19 at 13:30; Stop 03/14/19 at 13:29 Fluconazole (Diflucan) 100 mg DAILY PO Last administered on 03/07/19at 08:31; Admin Dose 100 MG; Start 03/04/19 at 13:00 Potassium Chloride/Dextrose 1,000 ml @ 80 mls/hr [id number] IV Last administered on 03/06/19at 20:44; Admin Dose 80 MLS/HR; Start 03/05/19 at 19:00 Ceftriaxone Sodium 50 ml @ 100 mls/hr Q24H IVPB Last administered on 03/06/19at 15:38; Admin Dose 100 MLS/HR; Start 03/06/19 at 14:30 VERNON COWART Mar 07, 2019 09:33
[2019-03-07] MEDS ORDERED: NA POLYST SULFON 15 GM/60 ML BTL NGT ONE (10:00)
[2019-03-07] MEDS: DEXTROSE 5% 1,000 ML IV SCH ×2 (10:14→23:20)
[2019-03-07] MEDS ORDERED: VANCOMYCIN 1 GM 250 ML IVPB SCH (11:00)
--- NOTE | 2019-03-07 13:25 | CONS ---
Consult Date/Type/Reason Admit Date/Time Mar 02, 2019 at 13:39 Initial Consult Date 03/03/19 Type of Consultation: Pulm/CCM Requesting Provider: LISA MATA MD Date/Time of Note DATE: 03/07/19 TIME: 13:15 Subjective Sedated on mechanical ventilation Objective Vitals Vital Signs Date Temp Pulse Resp B/P (MAP) Pulse Ox O2 O2 Flow FiO2 Time Delivery Rate 03/07/19 98.3 65 23 122/45 99 Mechanical 12:00 (70) Ventilator 03/07/19 30 11:29 Intake and Output 03/06/19 03/06/19 03/07/19 1515:00 23:00 07:00 IntakeIntake Total 1220 ml 1040 ml 1020 ml OutputOutput Total 385 ml 605 ml 650 ml BalanceBalance 835 ml 435 ml 370 ml Exam HEENT: Neck supple; no JVD; no LAD; + ET tube CVS: RRR, S1 and S2 CHEST: Bilateral rales ABD: Soft, NT, + BS EXT: No c/c: + edema NEURO: Sedated on the vent. Results/Medications Result Diagram: 03/07/19 0400 03/07/19 0400 Results 24 hrs Laboratory Tests Test 03/07/19 04:00 White Blood Count 11.2 #H Red Blood Count 2.72 L Hemoglobin 8.3 L Hematocrit 28.2 L Mean Corpuscular Volume 103.7 H Mean Corpuscular Hemoglobin 30.5 Mean Corpuscular Hemoglobin Concent 29.4 L Red Cell Distribution Width 15.7 H Platelet Count 70 #L Mean Platelet Volume 11.6 H Immature Granulocytes % 2.800 H Neutrophils % 75.9 Lymphocytes % 8.8 L Monocytes % 10.6 Eosinophils % 1.3 Basophils % 0.6 Nucleated Red Blood Cells % 0.2 H Immature Granulocytes # 0.310 H Neutrophils # 8.5 H Lymphocytes # 1.0 Monocytes # 1.2 H Eosinophils # 0.2 Basophils # 0.1 Nucleated Red Blood Cells # 0.0 Sodium Level 155 H Potassium Level 5.7 #H Chloride Level 123 H Carbon Dioxide Level 34 H Anion Gap -2 L Blood Urea Nitrogen 74 H Creatinine 1.93 H Est Glomerular Filtrat Rate mL/min Glucose Level 162 Calcium Level 7.9 L Phosphorus Level 2.4 #L Magnesium Level 3.1 H Total Bilirubin 0.4 Direct Bilirubin 0.00 Indirect Bilirubin 0.4 Aspartate Amino Transf (AST/SGOT) 39 Alanine Aminotransferase (ALT/SGPT) 54 Alkaline Phosphatase 191 H Total Protein 4.9 L Albumin 2.3 L Globulin 2.60 Albumin/Globulin Ratio 0.88 Random Vancomycin Level 12.3 Home Meds Reported Medications Diclofenac Sodium* (Voltaren* Gel) 1% -100 Gm Gel, 2 GM TOP BID PRN for PAIN, #1 TUB 03/02/19 Carbidopa/Levodopa (Sinemet 25-100 mg Tablet) 1 Each Tablet, 1 EACH PO TID, TAB 03/02/19 Furosemide* (Furosemide*) 40 Mg Tablet, 60 MG PO DAILY, TAB 03/02/19 Hydrocodone/Acetaminophen ([place] 5-325 Tablet) 1 Each Tablet, 1 EACH PO Q12H PRN for PRN, TAB 03/02/19 Levothyroxine Sodium* (Levothyroxine Sodium*) 150 Mcg Tablet, 150 MCG PO BEFORE BREAKFAST, #30 TAB 03/02/19 Discontinued Scripts Collagenase* (Santyl*) 30 Gm Oint..gm., 1 APPLIC TOP DAILY for 30 Days Prov:ABI GARCIA 01/22/18 Megestrol Acetate* (Megace*) 40 Mg Tab, 40 MG PO DAILY for 30 Days, TAB Prov:ABI GARCIA 01/22/18 Levothyroxine Sodium* (Levothyroxine Sodium*) 150 Mcg Tablet, 150 MCG PO BEFORE BREAKFAST for 30 Days, TAB Prov:KEN GARCIAA 01/22/18 Sennosides* (Senna Lax*) 8.6 Mg Tablet, 2 TAB PO BID PRN for CONSTIPATION, #30 TAB Prov:KEN GARCIAA 01/22/18 Docusate Sodium (Dok) 100 Mg Capsule, 100 MG PO Q12H for 30 Days, CAP Prov:KEN GARCIAA 01/22/18 Potassium Chloride* (Klor-Con*) 20 Meq Tabsr, 20 MEQ PO DAILY for 30 Days, TAB Prov:LAMAR GARCIALANA 01/22/18 Furosemide* (Furosemide*) 40 Mg Tablet, 40 MG PO DAILY for 30 Days, TAB Prov:KEN GARCIAA 01/22/18 Hydrocodone Bit-Acetaminophen (Hydrocodone Bit-APAP) 5-325MG Tablet, 1 TAB PO Q6H PRN for MODERATE PAIN LEVEL 4-6, #30 TAB Prov:LAMAR GARCIALANA 01/22/18 Ascorbic Acid (Vitamin C) 500 Mg Tab, 500 MG PO DAILY for 30 Days, TAB Prov:JOSEABI 01/22/18 Carbidopa/Levodopa (Sinemet 25-100 mg Tablet) 1 Each Tablet, 1 EACH PO TID for 30 Days, TAB Prov:OLGASOFYACARLEENABI 01/22/18 Multivit-Min/Iron Fum/Folic AC (Wfhei-Kkbliwy-Iqwlvfxw Tablet) 1 Each Tablet, 1 EACH PO DAILY for 30 Days, TAB Prov:OLGASOFYACARLEENABI 01/22/18 Ferrous Sulfate* (Ferrous Sulfate*) 325 Mg Tabec, 325 MG PO DAILY for 30 Days, TAB Prov:OLGASOFYACARLEENABI 01/22/18 Medications Current Medications Dextrose (D50w Syringe) ONCE PRN IV DECREASED GLUCOSE Last administered on 03/02/19at 19:05; Admin Dose 50 ML; Start 03/02/19 at 14:00 Ondansetron HCl (Zofran Inj) 4 mg Q6H PRN IV NAUSEA AND/OR VOMITING; Start 03/02/19 at 14:00 Acetaminophen (Tylenol Liquid) 650 mg Q6H PRN PO PAIN LEVEL 1-3 OR FEVER Last administered on 03/06/19at 12:16; Admin Dose 650 MG; Start 03/02/19 at 14:00 Morphine Sulfate (morphine) 2 mg Q4H PRN IV PAIN LEVEL 7-10; Start 03/02/19 at 14:00 Famotidine (Pepcid Iv) 20 mg DAILY IV Last administered on 03/07/19at 08:31; Admin Dose 20 MG; Start 03/02/19 at 14:30 Clonidine (Catapres) 0.2 mg Q6H PRN PO ELEVATED BLOOD PRESSURE; Start 03/02/19 at 18:00 Hydralazine HCl (Apresoline) 10 mg Q4H PRN IV SBP more than 150 mm hg ; Start 03/02/19 at 23:38 Fentanyl 100 ml @ 2.5 mls/hr TITRATE IV Last administered on 03/04/19at 02:26; Admin Dose 2.5 MLS/HR; Start 03/03/19 at 09:30 Citric Acid/ Sodium Citrate (Bicitra) 30 ml TID NGT Last administered on 03/07/19at 12:37; Admin Dose 30 ML; Start 03/03/19 at 10:30 Norepinephrine 250 ml @ 1.875 mls/ hr TITRATE IV Last administered on 03/03/19at 14:15; Admin Dose 3.75 MLS/HR; Start 03/03/19 at 14:00 IV Flush (NS 10 ml) 10 ml Q8 PRN IV IV PROTOCOL; Start 03/03/19 at 15:30 Miscellaneous Information 1 ea NOTE XX ; Start 03/03/19 at 15:30 Glucose (Glutose) 15 gm Q15M PRN PO DECREASED GLUCOSE; Start 03/03/19 at 15:30 Glucose (Glutose) 22.5 gm Q15M PRN PO DECREASED GLUCOSE; Start 03/03/19 at 15:30 Dextrose (D50w Syringe) 25 ml Q15M PRN IV DECREASED GLUCOSE; Start 03/03/19 at 15:30 Dextrose (D50w Syringe) 50 ml Q15M PRN IV DECREASED GLUCOSE; Start 03/03/19 at 15:30 Glucagon (Glucagen) 1 mg Q15M PRN IM DECREASED GLUCOSE; Start 03/03/19 at 15:30 Glucose (Glutose) 15 gm Q15M PRN BUCCAL DECREASED GLUCOSE; Start 03/03/19 at 15:30 Vancomycin HCl (Vanco Iv Per Pharmacy) VANCOMYCIN PER PHARMACY PER PROTOCOL XX ; Start 03/03/19 at 17:30 Mupirocin (Bactroban) 1 applic BID TOP Last administered on 03/07/19at 08:32; Adm in Dose 1 APPLIC; Start 03/04/19 at 13:30; Stop 03/14/19 at 13:29 Fluconazole (Diflucan) 100 mg DAILY PO Last administered on 03/07/19at 08:31; Admin Dose 100 MG; Start 03/04/19 at 13:00 Ceftriaxone Sodium 50 ml @ 100 mls/hr Q24H IVPB Last administered on 03/06/19at 15:38; Admin Dose 100 MLS/HR; Start 03/06/19 at 14:30 Dextrose 1,000 ml @ 80 mls/hr [id number] IV Last administered on 03/07/19at 10:14; Admin Dose 80 MLS/HR; Start 03/07/19 at 10:00 Vancomycin HCl 250 ml @ 125 mls/hr ONCE IVPB Last administered on 03/07/19at 12:37; Admin Dose 125 MLS/HR; Start 03/07/19 at 11:00; Stop 03/07/19 at 23:59 Assessment/Plan Assessment/Plan (Daily) IMP: 1. Acute Respiratory Failure 2. Sepsis/shock 3. Acute possibly on chronic kidney disease. 4. Congestive heart failure. 5. Anemia 6. Thrombocytopenia RECS: 1. Vent support 2. Abx per ID 3. Follow cultures 4. Am labs/CXR/ABG 5. Treat hyperkalemia as per Renal 6. Daily sedation vacation 40 min cc time ZAYNAB BAILEY MD Mar 07, 2019 13:25
[2019-03-07] MEDS: CEFTRIAXONE 2 GM/50 ML (PMX) 50 ML IVPB SCH (14:45)
--- NOTE | 2019-03-07 18:33 | CONS ---
Assessment/Plan Assessment/Plan Hospital Course (Demo Recall) ID PROGRESS NOTE CURRENT ABX: DAY# => Vanco IV + Diflucan + Ceftriaxone s/p Merrem INTERVAL SUMMARY: * (+)MRSA growing from ETT * Orally intubated, noncommunicative * New PICC, (+)NGT in place * BLEXT edema resolved BLEXT cellulitis much improved * Left lateral foot open wound == chronic poor healing * 03/06/19 CXR: Increased generalized atelectasis and vascular congestion. -------- MICRO * * 03/04/19 RESP CX: RESPIRATORY CULTURE Final Organism 1 METHICILLIN RESISTANT S.AUREUS QUANTITY 1+ . MULTI DRUG RESISTANT ORGANISM MRSA M.I.C. RX --------- --- CEFAZOLIN R CIPROFLOXACIN >=8 R CLINDAMYCIN <=0.25 S DOXYCYCLINE S ERYTHROMYCIN >=8 R LEVOFLOXACIN 4 R OXACILLIN >=4 R PENICILLIN-G >=0.5 R RIFAMPIN <=0.5 S VANCOMYCIN 1 S TRIMETHOPRIM/SULFAMETHOXAZOLE <=10 S * 03/03/19 Urine Cx (+) URINE CULTURE Preliminary Organism 1 K.PNEUMONIAE SSP PNEUMONIAE COLONY COUNT 50,000 - 60,000 CFU/ml Organism 2 YEAST COLONY COUNT >100,000 CFU/ml K PNE SPP M.I.C. RX --------- --- CEFAZOLIN S CEFOTAXIME S CIPROFLOXACIN <=0.25 S GENTAMICIN <=1 S LEVOFLOXACIN <=0.12 S NITROFURANTOIN 128 R TOBRAMYCIN <=1 S TRIMETHOPRIM/SULFAMETHOXAZOLE <=20 S * 03/02/19 Urine Cx (+) URINE CULTURE Final Organism 1 SUDHAKAR ALBICANS COLONY COUNT >100,000 CFU/ml * 03/02/19 (+)MRSA * 03/02/19 BCx (-) PHYSICAL EXAMINATION: GENERAL: Obese F resting comfortably HEENT: AT, NC, anicteric NECK: Supple, trach CHEST: Equal chest rise bilaterally, without dyspnea HEART: RRR pulse ABDOMEN: Soft, NT EXT: Warm, BLEXT edema/erythema == resolving * Right lateral open foot wound == unstageable == poor wound healing SKIN: No rash, no diaphoresis ID ASSESSMENT: 77 yo F w/ PMHx Parkinson's, dementia, obesity admit [facility] ICU with: 1. Sepsis criteria on admission with Hypotension + Leukocytosis due to acute UTI 2. Hypoxic respiratory insufficiency -> 3. Possible recurrent aspiration PNA ? == risk factors == DOREEN * 03/04/19 RESP CX: (+)MRSA 4. Exacerbation COPD w/ Hx of DOREEN vs Obesity hypoventilation syndrome 5. Acute recurrent on chronic diastolic heart failure / Hx of cardiomyopathy with congestive heart failure 6 Acute recurrent Cellulitis => RLEXT cellulitis > LLEXT => RESOLVING * Chronic recurrent bilateral lower extremity edema w/venous stasis wounds /dermatitis/ cellulitis * Venous insufficiency: AUG 2017 Reflux seen in the greater saphenous vein from the upper calf to the ankle on the right. 9. BLEXT PAD: AUG 2017 => Mild atherosclerotic plaque is seen scattered throughout the lower extremity arterial tree bilaterally. 10. Right lateral open foot wound == unstageable == poor wound healing == => CHRONIC POOR WOUND HEALING 11. Anemia of chronic disease 12. Acute renal failure / CKD == worse with prior ABX + Diuretics last admission ( - )MRSA Nares ABX ALLERGIES: KNDA INVASIVES: CURRENT ABX: DAY# ==> Vanco IV + Diflucan + Ceftriaxone s/p Merrem ID RECOMMENDATIONS/PLAN: 1. ABX spectrum has been narrowed -- (+)MRSA HCAP . .. Consultation Date/Type/Reason Admit Date/Time Mar 02, 2019 at 13:39 Initial Consult Date 03/03/19 Requesting Provider: LISA MATA MD Date/Time of Note DATE: 03/07/19 TIME: 18:31 Exam/Review of Systems Exam Vitals Vital Signs Date Temp Pulse Resp B/P (MAP) Pulse Ox O2 O2 Flow FiO2 Time Delivery Rate 03/07/19 70 20 95/36 (55) 99 Mechanical 18:00 Ventilator 03/07/19 30 17:19 03/07/19 98.5 16:00 Intake and Output 03/06/19 03/06/19 03/07/19 1515:00 23:00 07:00 IntakeIntake Total 1220 ml 1040 ml 1020 ml OutputOutput Total 385 ml 605 ml 650 ml BalanceBalance 835 ml 435 ml 370 ml Results Result Diagram: 03/07/19 0400 03/07/19 1552 Results 24hrs Laboratory Tests Test 03/07/19 04:00 03/07/19 15:52 White Blood Count 11.2 #H Red Blood Count 2.72 L Hemoglobin 8.3 L Hematocrit 28.2 L Mean Corpuscular Volume 103.7 H Mean Corpuscular Hemoglobin 30.5 Mean Corpuscular Hemoglobin Concent 29.4 L Red Cell Distribution Width 15.7 H Platelet Count 70 #L Mean Platelet Volume 11.6 H Immature Granulocytes % 2.800 H Neutrophils % 75.9 Lymphocytes % 8.8 L Monocytes % 10.6 Eosinophils % 1.3 Basophils % 0.6 Nucleated Red Blood Cells % 0.2 H Immature Granulocytes # 0.310 H Neutrophils # 8.5 H Lymphocytes # 1.0 Monocytes # 1.2 H Eosinophils # 0.2 Basophils # 0.1 Nucleated Red Blood Cells # 0.0 Sodium Level 155 H 153 H Potassium Level 5.7 #H 5.3 H Chloride Level 123 H 121 H Carbon Dioxide Level 34 H 32 H Anion Gap -2 L 0 L Blood Urea Nitrogen 74 H 68 H Creatinine 1.93 H 1.78 H Est Glomerular Filtrat Rate mL/min Glucose Level 162 181 Calcium Level 7.9 L 7.9 L Phosphorus Level 2.4 #L Magnesium Level 3.1 H Total Bilirubin 0.4 Direct Bilirubin 0.00 Indirect Bilirubin 0.4 Aspartate Amino Transf (AST/SGOT) 39 Alanine Aminotransferase (ALT/SGPT) 54 Alkaline Phosphatase 191 H Total Protein 4.9 L Albumin 2.3 L Globulin 2.60 Albumin/Globulin Ratio 0.88 Random Vancomycin Level 12.3 Medications Medication Current Medications Dextrose (D50w Syringe) ONCE PRN IV DECREASED GLUCOSE Last administered on 03/02/19at 19:05; Admin Dose 50 ML; Start 03/02/19 at 14:00 Ondansetron HCl (Zofran Inj) 4 mg Q6H PRN IV NAUSEA AND/OR VOMITING; Start 03/02/19 at 14:00 Acetaminophen (Tylenol Liquid) 650 mg Q6H PRN PO PAIN LEVEL 1-3 OR FEVER Last administered on 03/06/19at 12:16; Admin Dose 650 MG; Start 03/02/19 at 14:00 Morphine Sulfate (morphine) 2 mg Q4H PRN IV PAIN LEVEL 7-10; Start 03/02/19 at 14:00 Famotidine (Pepcid Iv) 20 mg DAILY IV Last administered on 03/07/19at 08:31; Admin Dose 20 MG; Start 03/02/19 at 14:30 Clonidine (Catapres) 0.2 mg Q6H PRN PO ELEVATED BLOOD PRESSURE; Start 03/02/19 at 18:00 Hydralazine HCl (Apresoline) 10 mg Q4H PRN IV SBP more than 150 mm hg ; Start 03/02/19 at 23:38 Fentanyl 100 ml @ 2.5 mls/hr TITRATE IV Last administered on 03/04/19at 02:26; Admin Dose 2.5 MLS/HR; Start 03/03/19 at 09:30 Citric Acid/ Sodium Citrate (Bicitra) 30 ml TID NGT Last administered on 03/07/19at 12:37; Admin Dose 30 ML; Start 03/03/19 at 10:30 Norepinephrine 250 ml @ 1.875 mls/ hr TITRATE IV Last administered on 03/03/19at 14:15; Admin Dose 3.75 MLS/HR; Start 03/03/19 at 14:00 IV Flush (NS 10 ml) 10 ml Q8 PRN IV IV PROTOCOL; Start 03/03/19 at 15:30 Miscellaneous Information 1 ea NOTE XX ; Start 03/03/19 at 15:30 Glucose (Glutose) 15 gm Q15M PRN PO DECREASED GLUCOSE; Start 03/03/19 at 15:30 Glucose (Glutose) 22.5 gm Q15M PRN PO DECREASED GLUCOSE; Start 03/03/19 at 15:30 Dextrose (D50w Syringe) 25 ml Q15M PRN IV DECREASED GLUCOSE; Start 03/03/19 at 15:30 Dextrose (D50w Syringe) 50 ml Q15M PRN IV DECREASED GLUCOSE; Start 03/03/19 at 15:30 Glucagon (Glucagen) 1 mg Q15M PRN IM DECREASED GLUCOSE; Start 03/03/19 at 15:30 Glucose (Glutose) 15 gm Q15M PRN BUCCAL DECREASED GLUCOSE; Start 03/03/19 at 15:30 Vancomycin HCl (Vanco Iv Per Pharmacy) VANCOMYCIN PER PHARMACY PER PROTOCOL XX ; Start 03/03/19 at 17:30 Mupirocin (Bactroban) 1 applic BID TOP Last administered on 03/07/19at 08:32; Admin Dose 1 APPLIC; Start 03/04/19 at 13:30; Stop 03/14/19 at 13:29 Fluconazole (Diflucan) 100 mg DAILY PO Last administered on 03/07/19at 08:31; Admin Dose 100 MG; Start 03/04/19 at 13:00 Ceftriaxone Sodium 50 ml @ 100 mls/hr Q24H IVPB Last administered on 03/07/19at 14:45; Admin Dose 100 MLS/HR; Start 03/06/19 at 14:30 Dextrose 1,000 ml @ 80 mls/hr [id number] IV Last administered on 03/07/19at 10:14; Admin Dose 80 MLS/HR; Start 03/07/19 at 10:00 Vancomycin HCl 250 ml @ 125 mls/hr ONCE IVPB Last administered on 03/07/19at 12:37; Admin Dose 125 MLS/HR; Start 03/07/19 at 11:00; Stop 03/07/19 at 23:59 LIBIA VERGARA NP Mar 07, 2019 18:33
[2019-03-07] MEDS: ACETAMINOPHEN 650MG/20.3ML CUP PO PRN (23:28)
[2019-03-08] VITALS (36 sets, daily range): BP systolic 100–126; BP diastolic 33–55; PULSE 48–68; RESP 16–27
[2019-03-08] MEDS ORDERED: PANTOPRAZOLE 40 MG INJ ONE (05:29)
--- NOTE | 2019-03-08 09:32 | CONS ---
Assessment/Plan Assessment/Plan Assessment/Plan (Daily) Ventilator setting; AC of 18, tidal volume 400, PEEP of 5, 30% FiO2. Assessment and recommendations; 1. Patient admitted with altered mental status due to worsening renal function with hyperkalemia requiring intubation. 2. Bilateral pneumonia with MRSA and Klebsiella isolated from sputum. 3. Bilateral lower extremity sialitis. 4. Anemia and severe thrombocytopenia. 5. Persistent severe encephalopathy. Likely metabolic in etiology. 6. Persistent hypernatremia. Continue current supportive care. Increase free water to 250 mL every 6 hours from 60 mL every 6 hours via NG tube. Continue to hold sedation. Monitor serum elect lites. Continue current antimicrobial regimen as well. Prognosis appears extremely guarded and will depend entirely upon adequate mental status recovery. Patient's family also to consider possible palliative care. 35 minutes of critical care time was spent evaluating patient. Consultation Date/Type/Reason Admit Date/Time Mar 02, 2019 at 13:39 Initial Consult Date 03/03/19 Type of Consult Pulmonary/critical care Patient is a 79-year-old female who was brought in by family to the hospital with worsening overall mental status and failure to thrive. Patient was transferred to ICU. Patient was on 100% nonrebreather and I was asked to evaluate the patient. The patient was completely unresponsive and was showing tachypnea. It was decided to electively intubate the patient which was done readily at bedside. Patient was unable to give any history by herself whatsoever. History is been obtained from medical records. Past medical history; 1. History of multiple admissions to hospital for various reasons. 2. History of Parkinson's disease. 3. Hypothyroidism. 4. CHF. 5. COPD. 6. Chronic renal insufficiency. 7. Severe peripheral vascular disease. Medications; reviewed. Allergies; none. Social history; patient has a history of smoking. Family history; patient has a supportive niece. Lives at home. Occupational history; not available. Review of system; unable to be obtained. General exam; elderly woman, unresponsive, lethargic. Tachypneic. On 100% nonrebreather mask. Requesting Provider: LISA MATA MD Date/Time of Note DATE: 03/08/19 TIME: 09:29 24 HR Interval Summary Free Text/Dictation Patient's condition is vertical. Patient has been off sedation and is still unresponsive. Patient however has remained hemodynamically stable. General exam; elderly woman, orally intubated, unresponsive, currently in no distress. Exam/Review of Systems Exam Vitals Vital Signs Date Temp Pulse Resp B/P (MAP) Pulse Ox O2 O2 Flow FiO2 Time Delivery Rate 03/08/19 50 19 99 30 09:19 03/08/19 113/42 Mechanical 07:00 (65) Ventilator 03/08/19 98.8 04:00 Intake and Output 03/07/19 03/07/19 03/08/19 1515:00 23:00 07:00 IntakeIntake Total 1180 ml 1060 ml 580 ml OutputOutput Total 850 ml 805 ml 750 ml BalanceBalance 330 ml 255 ml -170 ml Exam H ENT exam; supple neck, no JVD. No lymphadenopathy. Midline trachea. No thyromegaly. No neck masses. Patient has multiple carious teeth. Orally intubated. Pupils are small bilaterally. Chest exam; diminished but clear breath sounds. S1-S2 audible, no murmurs. Regular rhythm. Abdomen exam; soft, nondistended. No organomegaly. Bowel sounds are audible. Extremity exam; 2+ pitting edema in lower extremities with improvement in bilateral lower extremity cellulitis. 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 Results Result Diagram: 03/08/19 0345 03/08/19 0345 Results 24hrs Laboratory Tests Test 03/07/19 15:52 03/08/19 03:45 03/08/19 05:00 Sodium Level 153 H 154 H Potassium Level 5.3 H 5.0 Chloride Level 121 H 122 H Carbon Dioxide Level 32 H 31 Anion Gap 0 L 1 L Blood Urea Nitrogen 68 H 63 H Creatinine 1.78 H 1.70 H Est Glomerular Filtrat Rate mL/min Glucose Level 181 159 Calcium Level 7.9 L 7.7 L White Blood Count 13.3 H Red Blood Count 2.68 L Hemoglobin 8.1 L Hematocrit 28.1 L Mean Corpuscular Volume 104.9 H Mean Corpuscular Hemoglobin 30.2 Mean Corpuscular 28.8 L Hemoglobin Concent Red Cell Distribution Width 15.2 H Platelet Count 82 L Mean Platelet Volume 12.7 H Immature Granulocytes % 2.500 H Neutrophils % 79.5 H Lymphocytes % 8.2 L Monocytes % 7.2 Eosinophils % 2.1 Basophils % 0.5 Nucleated Red Blood Cells % 0.0 Immature Granulocytes # 0.330 H Neutrophils # 10.6 H Lymphocytes # 1.1 Monocytes # 1.0 H Eosinophils # 0.3 Basophils # 0.1 Nucleated Red Blood Cells # 0.0 Lactic Acid Level 1.0 Blood Gas Specimen Source Blood arterial Arterial Blood Date Drawn 03/08/2019 4:40:14 AM Arterial Blood pH 7.449 (Temp corrected) Arterial Blood pCO2 40.0 (Temp correct) Arterial Blood pO2 70.3 L (Temp corrected) Arterial Blood HCO3 27.1 H Arterial Blood Base Excess 2.9 Arterial Blood 94.7 L Oxygen Saturation Jewel Test ACCEPTAB Arterial Blood Gas Right Radial Puncture Site Arterial 0.8 Blood Carboxyhemoglobin Arterial Blood Methemoglobin 0.1 Blood Gas A-a O2 Differential 96.6 H Oxyhemoglobin Percent 93.8 Blood Gas Temperature 37.0 Blood Gas Respiration Rate 18.0 Blood Gas Actual 18 Respiration Rate Blood Gas Modality VENT - AC FiO2 30.0 Blood Gas Tidal Volume 400.0 Blood Gas Low PEEP Setting 5.0 Blood Gas Notified Whom LW Blood Gas Notified Time 03/08/2019 4:51:29 AM Medications Medication Current Medications Dextrose (D50w Syringe) ONCE PRN IV DECREASED GLUCOSE Last administered on 03/02/19at 19:05; Admin Dose 50 ML; Start 03/02/19 at 14:00 Ondansetron HCl (Zofran Inj) 4 mg Q6H PRN IV NAUSEA AND/OR VOMITING; Start 03/02/19 at 14:00 Acetaminophen (Tylenol Liquid) 650 mg Q6H PRN PO PAIN LEVEL 1-3 OR FEVER Last administered on 03/07/19at 23:28; Admin Dose 650 MG; Start 03/02/19 at 14:00 Morphine Sulfate (morphine) 2 mg Q4H PRN IV PAIN LEVEL 7-10; Start 03/02/19 at 14:00 Famotidine (Pepcid Iv) 20 mg DAILY IV Last administered on 03/07/19at 08:31; Admin Dose 20 MG; Start 03/02/19 at 14:30 Clonidine (Catapres) 0.2 mg Q6H PRN PO ELEVATED BLOOD PRESSURE; Start 03/02/19 at 18:00 Hydralazine HCl (Apresoline) 10 mg Q4H PRN IV SBP more than 150 mm hg ; Start 03/02/19 at 23:38 Fentanyl 100 ml @ 2.5 mls/hr TITRATE IV Last administered on 03/04/19at 02:26; Admin Dose 2.5 MLS/HR; Start 03/03/19 at 09:30 Citric Acid/ Sodium Citrate (Bicitra) 30 ml TID NGT Last administered on 03/07/19at 20:25; Admin Dose 30 ML; Start 03/03/19 at 10:30 Norepinephrine 250 ml @ 1.875 mls/ hr TITRATE IV Last administered on 02/03 08/22at 14:15; Admin Dose 3.75 MLS/HR; Start 03/03/19 at 14:00 IV Flush (NS 10 ml) 10 ml Q8 PRN IV IV PROTOCOL; Start 03/03/19 at 15:30 Miscellaneous Information 1 ea NOTE XX ; Start 03/03/19 at 15:30 Glucose (Glutose) 15 gm Q15M PRN PO DECREASED GLUCOSE; Start 03/03/19 at 15:30 Glucose (Glutose) 22.5 gm Q15M PRN PO DECREASED GLUCOSE; Start 03/03/19 at 15:30 Dextrose (D50w Syringe) 25 ml Q15M PRN IV DECREASED GLUCOSE; Start 03/03/19 at 15:30 Dextrose (D50w Syringe) 50 ml Q15M PRN IV DECREASED GLUCOSE; Start 03/03/19 at 15:30 Glucagon (Glucagen) 1 mg Q15M PRN IM DECREASED GLUCOSE; Start 03/03/19 at 15:30 Glucose (Glutose) 15 gm Q15M PRN BUCCAL DECREASED GLUCOSE; Start 03/03/19 at 15:30 Vancomycin HCl (Vanco Iv Per Pharmacy) VANCOMYCIN PER PHARMACY PER PROTOCOL XX ; Start 03/03/19 at 17:30 Mupirocin (Bactroban) 1 applic BID TOP Last administered on 03/07/19at 20:26; Admin Dose 1 APPLIC; Start 03/04/19 at 13:30; Stop 03/14/19 at 13:29 Fluconazole (Diflucan) 100 mg DAILY PO Last administered on 03/07/19at 08:31; Admin Dose 100 MG; Start 03/04/19 at 13:00 Ceftriaxone Sodium 50 ml @ 100 mls/hr Q24H IVPB Last administered on 03/07/19at 14:45; Admin Dose 100 MLS/HR; Start 03/06/19 at 14:30 Dextrose 1,000 ml @ 80 mls/hr [id number] IV Last administered on 03/07/19at 23:20; Admin Dose 80 MLS/HR; Start 03/07/19 at 10:00 GABRIEL PRESLEY Mar 08, 2019 09:32
[2019-03-08] MEDS: FLUCONAZOLE 100 MG TAB PO SCH (09:35)
[2019-03-08] MEDS: MUPIROCIN 2% 22 GM OINT TOP SCH ×2 (09:35→20:03)
[2019-03-08] MEDS: FAMOTIDINE 20 MG INJ IV SCH (09:35)
[2019-03-08] MEDS: CITRIC ACID/NA CITRATE 30 ML CUP NGT SCH ×2 (09:35→20:02)
[2019-03-08] MEDS: DEXTROSE 5% 1,000 ML IV SCH ×2 (11:00→20:28)
--- NOTE | 2019-03-08 11:14 | CONS ---
Assessment/Plan Assessment/Plan Assessment/Plan (Daily) 1. acute hyperkalemia with K 7.3 on admission - now resolved 2. acute kidney injury on CKD III 2/2 ischemic ATN + prerenal azotemia 3. Severe metabolic acidosis 4. septic shock on admission unclear source at this time 5. H/o COPD 6. H/o diastolic Heart failure with Preserved EF 7. H/o Hypothyroidisk 8. H/o Parkinoson's disease 9. h/o HTN 10. acute hypoxic respiratory failure intubate on ventilator Plan: Ventilator care pulmonary , remained intubated, on FiO2 30%, PEEP 5 IV abx Meropenem and PO Fluconazole < renally dose all abx and monitoe electrolytes BUN/Cr improved to 63/1.7, K 5.0- Na Still high 154- continue IVF D5W at 80 cc/hr DNR code status will follow up Consultation Date/Type/Reason Admit Date/Time Mar 02, 2019 at 13:39 Initial Consult Date 03/03/19 Type of Consult NEPHROLOGY Requesting Provider: LISA MATA MD Date/Time of Note DATE: 03/08/19 TIME: 11:14 24 HR Interval Summary Free Text/Dictation pt remains intubated, FiO2 30%, PEEP 5, Exam/Review of Systems Exam Vitals Vital Signs Date Temp Pulse Resp B/P (MAP) Pulse Ox O2 O2 Flow FiO2 Time Delivery Rate 03/08/19 50 19 99 30 09:19 03/08/19 113/42 Mechanical 07:00 (65) Ventilator 03/08/19 98.8 04:00 Intake and Output 03/07/19 03/07/19 03/08/19 1515:00 23:00 07:00 IntakeIntake Total 1180 ml 1060 ml 580 ml OutputOutput Total 850 ml 805 ml 750 ml BalanceBalance 330 ml 255 ml -170 ml Exam Constitutional: intubated on ventilator, Non verbal Respiratory: congested cough, crackles/rales, diminished breath sounds Cardiovascular: regular rate and rhythm, nl pulses Gastrointestinal: soft, non-tender, other (non distended, BS+) Musculoskeletal: muscle weakness, swelling (1+ edema ) Neurological: sedated on ventilator Lymph: nl lymph nodes Results Result Diagram: 03/08/19 0345 03/08/19 0345 Results 24hrs Laboratory Tests Test 03/07/19 15:52 03/08/19 03:45 03/08/19 05:00 Sodium Level 153 H 154 H Potassium Level 5.3 H 5.0 Chloride Level 121 H 122 H Carbon Dioxide Level 32 H 31 Anion Gap 0 L 1 L Blood Urea Nitrogen 68 H 63 H Creatinine 1.78 H 1.70 H Est Glomerular Filtrat Rate mL/min Glucose Level 181 159 Calcium Level 7.9 L 7.7 L White Blood Count 13.3 H Red Blood Count 2.68 L Hemoglobin 8.1 L Hematocrit 28.1 L Mean Corpuscular Volume 104.9 H Mean Corpuscular Hemoglobin 30.2 Mean Corpuscular 28.8 L Hemoglobin Concent Red Cell Distribution Width 15.2 H Platelet Count 82 L Mean Platelet Volume 12.7 H Immature Granulocytes % 2.500 H Neutrophils % 79.5 H Lymphocytes % 8.2 L Monocytes % 7.2 Eosinophils % 2.1 Basophils % 0.5 Nucleated Red Blood Cells % 0.0 Immature Granulocytes # 0.330 H Neutrophils # 10.6 H Lymphocytes # 1.1 Monocytes # 1.0 H Eosinophils # 0.3 Basophils # 0.1 Nucleated Red Blood Cells # 0.0 Lactic Acid Level 1.0 Blood Gas Specimen Source Blood arterial Arterial Blood Date Drawn 03/08/2019 4:40:14 AM Arterial Blood pH 7.449 (Temp corrected) Arterial Blood pCO2 40.0 (Temp correct) Arterial Blood pO2 70.3 L (Temp corrected) Arterial Blood HCO3 27.1 H Arterial Blood Base Excess 2.9 Arterial Blood 94.7 L Oxygen Saturation Jewel Test ACCEPTAB Arterial Blood Gas Right Radial Puncture Site Arterial 0.8 Blood Carboxyhemoglobin Arterial Blood Methemoglobin 0.1 Blood Gas A-a O2 Differential 96.6 H Oxyhemoglobin Percent 93.8 Blood Gas Temperature 37.0 Blood Gas Respiration Rate 18.0 Blood Gas Actual 18 Respiration Rate Blood Gas Modality VENT - AC FiO2 30.0 Blood Gas Tidal Volume 400.0 Blood Gas Low PEEP Setting 5.0 Blood Gas Notified Whom LW Blood Gas Notified Time 03/08/2019 4:51:29 AM Medications Medication Current Medications Dextrose (D50w Syringe) ONCE PRN IV DECREASED GLUCOSE Last administered on 03/02/19at 19:05; Admin Dose 50 ML; Start 03/02/19 at 14:00 Ondansetron HCl (Zofran Inj) 4 mg Q6H PRN IV NAUSEA AND/OR VOMITING; Start 03/02/19 at 14:00 Acetaminophen (Tylenol Liquid) 650 mg Q6H PRN PO PAIN LEVEL 1-3 OR FEVER Last administered on 03/07/19at 23:28; Admin Dose 650 MG; Start 03/02/19 at 14:00 Morphine Sulfate (morphine) 2 mg Q4H PRN IV PAIN LEVEL 7-10; Start 03/02/19 at 14:00 Famotidine (Pepcid Iv) 20 mg DAILY IV Last administered on 03/08/19at 09:35; Admin Dose 20 MG; Start 03/02/19 at 14:30 Clonidine (Catapres) 0.2 mg Q6H PRN PO ELEVATED BLOOD PRESSURE; Start 03/02/19 at 18:00 Hydralazine HCl (Apresoline) 10 mg Q4H PRN IV SBP more than 150 mm hg ; Start 03/02/19 at 23:38 Fentanyl 100 ml @ 2.5 mls/hr TITRATE IV Last administered on 03/04/19at 02:26; Admin Dose 2.5 MLS/HR; Start 03/03/19 at 09:30 Citric Acid/ Sodium Citrate (Bicitra) 30 ml TID NGT Last administered on 03/08/19at 09:35; Admin Dose 30 ML; Start 03/03/19 at 10:30 Norepinephrine 250 ml @ 1.875 mls/ hr TITRATE IV Last administered on 03/03/19at 14:15; Admin Dose 3.75 MLS/HR; Start 03/03/19 at 14:00 IV Flush (NS 10 ml) 10 ml Q8 PRN IV IV PROTOCOL; Start 03/03/19 at 15:30 Miscellaneous Information 1 ea NOTE XX ; Start 03/03/19 at 15:30 Glucose (Glutose) 15 gm Q15M PRN PO DECREASED GLUCOSE; Start 03/03/19 at 15:30 Glucose (Glutose) 22.5 gm Q15M PRN PO DECREASED GLUCOSE; Start 03/03/19 at 15:30 Dextrose (D50w Syringe) 25 ml Q15M PRN IV DECREASED GLUCOSE; Start 03/03/19 at 15:30 Dextrose (D50w Syringe) 50 ml Q15M PRN IV DECREASED GLUCOSE; Start 03/03/19 at 15:30 Glucagon (Glucagen) 1 mg Q15M PRN IM DECREASED GLUCOSE; Start 03/03/19 at 15:30 Glucose (Glutose) 15 gm Q15M PRN BUCCAL DECREASED GLUCOSE; Start 03/03/19 at 15:30 Vancomycin HCl (Vanco Iv Per Pharmacy) VANCOMYCIN PER PHARMACY PER PROTOCOL XX ; Start 03/03/19 at 17:30 Mupirocin (Bactroban) 1 applic BID TOP Last administered on 03/08/19at 09:35; Admin Dose 1 APPLIC; Start 03/04/19 at 13:30; Stop 03/14/19 at 13:29 Fluconazole (Diflucan) 100 mg DAILY PO Last administered on 03/08/19at 09:35; Admin Dose 100 MG; Start 03/04/19 at 13:00 Ceftriaxone Sodium 50 ml @ 100 mls/hr Q24H IVPB Last administered on 03/07/19at 14:45; Admin Dose 100 MLS/HR; Start 03/06/19 at 14:30 Dextrose 1,000 ml @ 80 mls/hr [id number] IV Last administered on 03/07/19at 23:20; Admin Dose 80 MLS/HR; Start 03/07/19 at 10:00 ENRIQUETA HUNG MD Mar 08, 2019 11:14
--- NOTE | 2019-03-08 12:24 | CONS ---
Assessment/Plan Assessment/Plan Hospital Course (Demo Recall) No acute events patient remains on vent support she spiked fever of 101.1 last night WBC today 13.3 platelets 82 neutrophils 79.5 BUN 63 creatinine 1.70 Microbiology: Endotracheal aspirate grew MRSA urine culture grew Klebsiella Ela albicans Chest x-ray this morning revealed right lung base and left perihilar consolidation Antimicrobials: Vancomycin Rocephin, fluconazole INDWELLINGS: Endotracheal tube, NG tube, Cabrera catheter, PICC line. DIAGNOSTICS: Renal ultrasound revealed no evidence of hydronephrosis. A chest x-ray revealed atelectatic changes with superimposed infectious/inflammatory process in the right lung. Gallbladder ultrasound on admission revealed dilated pancreatic duct measuring up to 4 mm, mass in the region of pancreatic head cannot be excluded. Recommendation of CT with contrast or MRCP, no evidence of gallstones. ALLERGIES: NONE. PHYSICAL EXAMINATION: GENERAL: This is a chronically ill-appearing, obese elderly woman who is in no distress. Head atraumatic, normocephalic. NECK: Obese. CHEST: Rise symmetrical. Breath sounds diminished to bases. HEART: S1, S2. ABDOMEN: Obese, soft, bowel tones present. EXTREMITIES: Bilateral lower extremities edema, erythema, dsg intact. ASSESSMENT: 1. Severe sepsis with shock. 2. Urinary tract infection. 3. Acute hypoxemic respiratory failure, rule out aspiration. 4. Acute possibly on chronic kidney disease. 5. Congestive heart failure. 6. Morbid obesity. 7. MRSA nares colonization. PLAN: Clinically unchanged, will repeat blood cultures, change Rocephin to meropenem Consultation Date/Type/Reason Admit Date/Time Mar 02, 2019 at 13:39 Initial Consult Date 03/03/19 Type of Consult id Requesting Provider: LISA MATA MD Date/Time of Note DATE: 03/08/19 TIME: 12:22 Exam/Review of Systems Exam Vitals Vital Signs Date Temp Pulse Resp B/P (MAP) Pulse Ox O2 O2 Flow FiO2 Time Delivery Rate 03/08/19 56 21 96 30 11:17 03/08/19 113/42 Mechanical 07:00 (65) Ventilator 03/08/19 98.8 04:00 Intake and Output 03/07/19 03/07/19 03/08/19 1515:00 23:00 07:00 IntakeIntake Total 1180 ml 1060 ml 580 ml OutputOutput Total 850 ml 805 ml 750 ml BalanceBalance 330 ml 255 ml -170 ml Results Result Diagram: 03/08/19 0345 03/08/19 0345 Results 24hrs Laboratory Tests Test 03/07/19 15:52 03/08/19 03:45 03/08/19 05:00 Sodium Level 153 H 154 H Potassium Level 5.3 H 5.0 Chloride Level 121 H 122 H Carbon Dioxide Level 32 H 31 Anion Gap 0 L 1 L Blood Urea Nitrogen 68 H 63 H Creatinine 1.78 H 1.70 H Est Glomerular Filtrat Rate mL/min Glucose Level 181 159 Calcium Level 7.9 L 7.7 L White Blood Count 13.3 H Red Blood Count 2.68 L Hemoglobin 8.1 L Hematocrit 28.1 L Mean Corpuscular Volume 104.9 H Mean Corpuscular Hemoglobin 30.2 Mean Corpuscular 28.8 L Hemoglobin Concent Red Cell Distribution Width 15.2 H Platelet Count 82 L Mean Platelet Volume 12.7 H Immature Granulocytes % 2.500 H Neutrophils % 79.5 H Lymphocytes % 8.2 L Monocytes % 7.2 Eosinophils % 2.1 Basophils % 0.5 Nucleated Red Blood Cells % 0.0 Immature Granulocytes # 0.330 H Neutrophils # 10.6 H Lymphocytes # 1.1 Monocytes # 1.0 H Eosinophils # 0.3 Basophils # 0.1 Nucleated Red Blood Cells # 0.0 Lactic Acid Level 1.0 Blood Gas Specimen Source Blood arterial Arterial Blood Date Drawn 03/08/2019 4:40:14 AM Arterial Blood pH 7.449 (Temp corrected) Arterial Blood pCO2 40.0 (Temp correct) Arterial Blood pO2 70.3 L (Temp corrected) Arterial Blood HCO3 27.1 H Arterial Blood Base Excess 2.9 Arterial Blood 94.7 L Oxygen Saturation Jewel Test ACCEPTAB Arterial Blood Gas Right Radial Puncture Site Arterial 0.8 Blood Carboxyhemoglobin Arterial Blood Methemoglobin 0.1 Blood Gas A-a O2 Differential 96.6 H Oxyhemoglobin Percent 93.8 Blood Gas Temperature 37.0 Blood Gas Respiration Rate 18.0 Blood Gas Actual 18 Respiration Rate Blood Gas Modality VENT - AC FiO2 30.0 Blood Gas Tidal Volume 400.0 Blood Gas Low PEEP Setting 5.0 Blood Gas Notified Whom LW Blood Gas Notified Time 03/08/2019 4:51:29 AM Medications Medication Current Medications Dextrose (D50w Syringe) ONCE PRN IV DECREASED GLUCOSE Last administered on 03/02/19at 19:05; Admin Dose 50 ML; Start 03/02/19 at 14:00 Ondansetron HCl (Zofran Inj) 4 mg Q6H PRN IV NAUSEA AND/OR VOMITING; Start 03/02/19 at 14:00 Acetaminophen (Tylenol Liquid) 650 mg Q6H PRN PO PAIN LEVEL 1-3 OR FEVER Last administered on 03/07/19at 23:28; Admin Dose 650 MG; Start 03/02/19 at 14:00 Morphine Sulfate (morphine) 2 mg Q4H PRN IV PAIN LEVEL 7-10; Start 03/02/19 at 14:00 Famotidine (Pepcid Iv) 20 mg DAILY IV Last administered on 03/08/19at 09:35; Admin Dose 20 MG; Start 03/02/19 at 14:30 Clonidine (Catapres) 0.2 mg Q6H PRN PO ELEVATED BLOOD PRESSURE; Start 03/02/19 at 18:00 Hydralazine HCl (Apresoline) 10 mg Q4H PRN IV SBP more than 150 mm hg ; Start 03/02/19 at 23:38 Fentanyl 100 ml @ 2.5 mls/hr TITRATE IV Last administered on 03/04/19at 02:26; Admin Dose 2.5 MLS/HR; Start 03/03/19 at 09:30 Norepinephrine 250 ml @ 1.875 mls/ hr TITRATE IV Last administered on 03/03/19at 14:15; Admin Dose 3.75 MLS/HR; Start 03/03/19 at 14:00 IV Flush (NS 10 ml) 10 ml Q8 PRN IV IV PROTOCOL; Start 03/03/19 at 15:30 Miscellaneous Information 1 ea NOTE XX ; Start 03/03/19 at 15:30 Glucose (Glutose) 15 gm Q15M PRN PO DECREASED GLUCOSE; Start 03/03/19 at 15:30 Glucose (Glutose) 22.5 gm Q15M PRN PO DECREASED GLUCOSE; Start 03/03/19 at 15:30 Dextrose (D50w Syringe) 25 ml Q15M PRN IV DECREASED GLUCOSE; Start 03/03/19 at 15:30 Dextrose (D50w Syringe) 50 ml Q15M PRN IV DECREASED GLUCOSE; Start 03/03/19 at 15:30 Glucagon (Glucagen) 1 mg Q15M PRN IM DECREASED GLUCOSE; Start 03/03/19 at 15:30 Glucose (Glutose) 15 gm Q15M PRN BUCCAL DECREASED GLUCOSE; Start 03/03/19 at 15:30 Vancomycin HCl (Vanco Iv Per Pharmacy) VANCOMYCIN PER PHARMACY PER PROTOCOL XX ; Start 03/03/19 at 17:30 Mupirocin (Bactroban) 1 applic BID TOP Last administered on 03/08/19at 09:35; Admin Dose 1 APPLIC; Start 03/04/19 at 13:30; Stop 03/14/19 at 13:29 Fluconazole (Diflucan) 100 mg DAILY PO Last administered on 03/08/19at 09:35; Admin Dose 100 MG; Start 03/04/19 at 13:00 Ceftriaxone Sodium 50 ml @ 100 mls/hr Q24H IVPB Last administered on 03/07/19at 14:45; Admin Dose 100 MLS/HR; Start 03/06/19 at 14:30 Dextrose 1,000 ml @ 80 mls/hr [id number] IV Last administered on 03/07/19at 23:20; Admin Dose 80 MLS/HR; Start 03/07/19 at 10:00 Citric Acid/ Sodium Citrate (Bicitra) 30 ml BID NGT ; Start 03/08/19 at 21:00 Miscellaneous Information (*Rx Drug Level Order Reminder*) VANCO TR 0500 ONCE XX ; Start 03/09/19 at 05:00; Stop 03/09/19 at 05:01 ANITA VIERA NP Mar 08, 2019 12:24
--- NOTE | 2019-03-08 12:41 | PN ---
Date/Time of Note Date/Time of Note DATE: 03/08/19 TIME: 12:40 Assessment/Plan VTE Prophylaxis Risk score (from [facility])>0 risk: 7 SCD applied (from [facility]): No SCD contraindicated: other Pharmacological prophylaxis: LMWH Lines/Catheters IV Catheter Type (from [facility]): PICC Line Central line still needed: Yes Urinary Cath still in place: Yes Reason Cath still needed: skin wounds contaminated by urine Assessment/Plan Hospital Course 1) hyperkalemia - treat - secondary to renal failure - monitor 2) renal failure - appreciate nephrology help - patient may need to be started on hemodialysis 3) altered level of consciousness - probably seconardary to #2 - intubated for airway protection Result Diagram: 03/08/19 0345 03/08/19 0345 Results 24hrs Laboratory Tests Test 03/07/19 15:52 03/08/19 03:45 03/08/19 05:00 Sodium Level 153 H 154 H Potassium Level 5.3 H 5.0 Chloride Level 121 H 122 H Carbon Dioxide Level 32 H 31 Anion Gap 0 L 1 L Blood Urea Nitrogen 68 H 63 H Creatinine 1.78 H 1.70 H Est Glomerular Filtrat Rate mL/min Glucose Level 181 159 Calcium Level 7.9 L 7.7 L White Blood Count 13.3 H Red Blood Count 2.68 L Hemoglobin 8.1 L Hematocrit 28.1 L Mean Corpuscular Volume 104.9 H Mean Corpuscular Hemoglobin 30.2 Mean Corpuscular 28.8 L Hemoglobin Concent Red Cell Distribution Width 15.2 H Platelet Count 82 L Mean Platelet Volume 12.7 H Immature Granulocytes % 2.500 H Neutrophils % 79.5 H Lymphocytes % 8.2 L Monocytes % 7.2 Eosinophils % 2.1 Basophils % 0.5 Nucleated Red Blood Cells % 0.0 Immature Granulocytes # 0.330 H Neutrophils # 10.6 H Lymphocytes # 1.1 Monocytes # 1.0 H Eosinophils # 0.3 Basophils # 0.1 Nucleated Red Blood Cells # 0.0 Lactic Acid Level 1.0 Blood Gas Specimen Source Blood arterial Arterial Blood Date Drawn 03/08/2019 4:40:14 AM Arterial Blood pH 7.449 (Temp corrected) Arterial Blood pCO2 40.0 (Temp correct) Arterial Blood pO2 70.3 L (Temp corrected) Arterial Blood HCO3 27.1 H Arterial Blood Base Excess 2.9 Arterial Blood 94.7 L Oxygen Saturation Jewel Test ACCEPTAB Arterial Blood Gas Right Radial Puncture Site Arterial 0.8 Blood Carboxyhemoglobin Arterial Blood Methemoglobin 0.1 Blood Gas A-a O2 Differential 96.6 H Oxyhemoglobin Percent 93.8 Blood Gas Temperature 37.0 Blood Gas Respiration Rate 18.0 Blood Gas Actual 18 Respiration Rate Blood Gas Modality VENT - AC FiO2 30.0 Blood Gas Tidal Volume 400.0 Blood Gas Low PEEP Setting 5.0 Blood Gas Notified Whom LW Blood Gas Notified Time 03/08/2019 4:51:29 AM Subjective 24 Hr Interval Summary Free Text/Dictation Patient is sedated, on vent Exam/Review of Systems Exam Vitals Vital Signs Date Temp Pulse Resp B/P (MAP) Pulse Ox O2 O2 Flow FiO2 Time Delivery Rate 03/08/19 56 21 96 30 11:17 03/08/19 113/42 Mechanical 07:00 (65) Ventilator 03/08/19 98.8 04:00 Intake and Output 03/07/19 03/07/19 03/08/19 1515:00 23:00 07:00 IntakeIntake Total 1180 ml 1060 ml 580 ml OutputOutput Total 850 ml 805 ml 750 ml BalanceBalance 330 ml 255 ml -170 ml Constitutional: well developed Head: normocephalic, atraumatic Neck: supple Respiratory: diminished breath sounds Cardiovascular: regular rate and rhythm Gastrointestinal: soft, non-tender Extremities: normal pulses Results Results 24hrs Laboratory Tests Test 03/07/19 15:52 03/08/19 03:45 03/08/19 05:00 Sodium Level 153 H 154 H Potassium Level 5.3 H 5.0 Chloride Level 121 H 122 H Carbon Dioxide Level 32 H 31 Anion Gap 0 L 1 L Blood Urea Nitrogen 68 H 63 H Creatinine 1.78 H 1.70 H Est Glomerular Filtrat Rate mL/min Glucose Level 181 159 Calcium Level 7.9 L 7.7 L White Blood Count 13.3 H Red Blood Count 2.68 L Hemoglobin 8.1 L Hematocrit 28.1 L Mean Corpuscular Volume 104.9 H Mean Corpuscular Hemoglobin 30.2 Mean Corpuscular 28.8 L Hemoglobin Concent Red Cell Distribution Width 15.2 H Platelet Count 82 L Mean Platelet Volume 12.7 H Immature Granulocytes % 2.500 H Neutrophils % 79.5 H Lymphocytes % 8.2 L Monocytes % 7.2 Eosinophils % 2.1 Basophils % 0.5 Nucleated Red Blood Cells % 0.0 Immature Granulocytes # 0.330 H Neutrophils # 10.6 H Lymphocytes # 1.1 Monocytes # 1.0 H Eosinophils # 0.3 Basophils # 0.1 Nucleated Red Blood Cells # 0.0 Lactic Acid Level 1.0 Blood Gas Specimen Source Blood arterial Arterial Blood Date Drawn 03/08/2019 4:40:14 AM Arterial Blood pH 7.449 (Temp corrected) Arterial Blood pCO2 40.0 (Temp correct) Arterial Blood pO2 70.3 L (Temp corrected) Arterial Blood HCO3 27.1 H Arterial Blood Base Excess 2.9 Arterial Blood 94.7 L Oxygen Saturation Jewel Test ACCEPTAB Arterial Blood Gas Right Radial Puncture Site Arterial 0.8 Blood Carboxyhemoglobin Arterial Blood Methemoglobin 0.1 Blood Gas A-a O2 Differential 96.6 H Oxyhemoglobin Percent 93.8 Blood Gas Temperature 37.0 Blood Gas Respiration Rate 18.0 Blood Gas Actual 18 Respiration Rate Blood Gas Modality VENT - AC FiO2 30.0 Blood Gas Tidal Volume 400.0 Blood Gas Low PEEP Setting 5.0 Blood Gas Notified Whom LW Blood Gas Notified Time 03/08/2019 4:51:29 AM Medications Medication Current Medications Dextrose (D50w Syringe) ONCE PRN IV DECREASED GLUCOSE Last administered on 03/02/19at 19:05; Admin Dose 50 ML; Start 03/02/19 at 14:00 Ondansetron HCl (Zofran Inj) 4 mg Q6H PRN IV NAUSEA AND/OR VOMITING; Start at 14:00 Acetaminophen (Tylenol Liquid) 650 mg Q6H PRN PO PAIN LEVEL 1-3 OR FEVER Last administered on 03/07/19at 23:28; Admin Dose 650 MG; Start 03/02/19 at 14:00 Morphine Sulfate (morphine) 2 mg Q4H PRN IV PAIN LEVEL 7-10; Start 03/02/19 at 14:00 Famotidine (Pepcid Iv) 20 mg DAILY IV Last administered on 03/08/19at 09:35; Admin Dose 20 MG; Start 03/02/19 at 14:30 Clonidine (Catapres) 0.2 mg Q6H PRN PO ELEVATED BLOOD PRESSURE; Start 03/02/19 at 18:00 Hydralazine HCl (Apresoline) 10 mg Q4H PRN IV SBP more than 150 mm hg ; Start 03/02/19 at 23:38 Fentanyl 100 ml @ 2.5 mls/hr TITRATE IV Last administered on 03/04/19at 02:26; Admin Dose 2.5 MLS/HR; Start 03/03/19 at 09:30 Norepinephrine 250 ml @ 1.875 mls/ hr TITRATE IV Last administered on 03/03/19at 14:15; Admin Dose 3.75 MLS/HR; Start 03/03/19 at 14:00 IV Flush (NS 10 ml) 10 ml Q8 PRN IV IV PROTOCOL; Start 03/03/19 at 15:30 Miscellaneous Information 1 ea NOTE XX ; Start 03/03/19 at 15:30 Glucose (Glutose) 15 gm Q15M PRN PO DECREASED GLUCOSE; Start 03/03/19 at 15:30 Glucose (Glutose) 22.5 gm Q15M PRN PO DECREASED GLUCOSE; Start 03/03/19 at 15:30 Dextrose (D50w Syringe) 25 ml Q15M PRN IV DECREASED GLUCOSE; Start 03/03/19 at 15:30 Dextrose (D50w Syringe) 50 ml Q15M PRN IV DECREASED GLUCOSE; Start 03/03/19 at 15:30 Glucagon (Glucagen) 1 mg Q15M PRN IM DECREASED GLUCOSE; Start 03/03/19 at 15:30 Glucose (Glutose) 15 gm Q15M PRN BUCCAL DECREASED GLUCOSE; Start 03/03/19 at 15:30 Vancomycin HCl (Vanco Iv Per Pharmacy) VANCOMYCIN PER PHARMACY PER PROTOCOL XX ; Start 03/03/19 at 17:30 Mupirocin (Bactroban) 1 applic BID TOP Last administered on 03/08/19at 09:35; Admin Dose 1 APPLIC; Start 03/04/19 at 13:30; Stop 03/14/19 at 13:29 Fluconazole (Diflucan) 100 mg DAILY PO Last administered on 03/08/19at 09:35; Admin Dose 100 MG; Start 03/04/19 at 13:00 Dextrose 1,000 ml @ 80 mls/hr [id number] IV Last administered on 03/07/19at 23:20; Admin Dose 80 MLS/HR; Start 03/07/19 at 10:00 Citric Acid/ Sodium Citrate (Bicitra) 30 ml BID NGT ; Start 03/08/19 at 21:00 Miscellaneous Information (*Rx Drug Level Order Reminder*) URIEL TR 0500 ONCE XX ; Start 03/09/19 at 05:00; Stop 03/09/19 at 05:01 Meropenem/Sodium Chloride 50 ml @ 100 mls/hr Q12 IVPB ; Start 03/08/19 at 12:30 VERNON COWART Mar 08, 2019 12:41
[2019-03-08] MEDS: MEROPENEM 500MG/50 ML (PMX) 50 ML IVPB SCH ×2 (14:59→20:03)
[2019-03-09] VITALS (34 sets, daily range): BP systolic 95–126; BP diastolic 34–69; PULSE 52–66; RESP 14–26
[2019-03-09] MEDS: DEXTROSE 5% 1,000 ML IV SCH (09:04)
[2019-03-09] MEDS: CITRIC ACID/NA CITRATE 30 ML CUP NGT SCH ×2 (09:05→20:01)
[2019-03-09] MEDS: MEROPENEM 500MG/50 ML (PMX) 50 ML IVPB SCH ×2 (09:05→20:01)
[2019-03-09] MEDS: FAMOTIDINE 20 MG INJ IV SCH (09:05)
[2019-03-09] MEDS: MUPIROCIN 2% 22 GM OINT TOP SCH ×2 (09:06→20:01)
[2019-03-09] MEDS: FLUCONAZOLE 100 MG TAB PO SCH (09:06)
--- NOTE | 2019-03-09 09:34 | CONS ---
Assessment/Plan Assessment/Plan Assessment/Plan (Daily) Ventilator setting; assist control of 18, tidal volume 400, PEEP of 5, 30% FiO2. Assessment and recommendations; 1. Patient admitted with metabolic acidosis due to acute on chronic renal insufficiency with hyperkalemia with interval improvement. 2. Persistent severe encephalopathy. 3. Anemia and severe thrombocytopenia. 4. MRSA pneumonia as well as Klebsiella UTI. 5. Bilateral lower extremity cellulitis. 6. Generalized anasarca. Continue current supportive care. Patient's family possibly may opt for palliative care. Prognosis is poor. 35 minutes of critical care time was spent evaluating patient. Consultation Date/Type/Reason Admit Date/Time Mar 02, 2019 at 13:39 Initial Consult Date 03/03/19 Type of Consult Pulmonary/critical care Patient is a 79-year-old female who was brought in by family to the hospital with worsening overall mental status and failure to thrive. Patient was transferred to ICU. Patient was on 100% nonrebreather and I was asked to evaluate the patient. The patient was completely unresponsive and was showing tachypnea. It was decided to electively intubate the patient which was done readily at bedside. Patient was unable to give any history by herself whatsoever. History is been obtained from medical records. Past medical history; 1. History of multiple admissions to hospital for various reasons. 2. History of Parkinson's disease. 3. Hypothyroidism. 4. CHF. 5. COPD. 6. Chronic renal insufficiency. 7. Severe peripheral vascular disease. Medications; reviewed. Allergies; none. Social history; patient has a history of smoking. Family history; patient has a supportive niece. Lives at home. Occupational history; not available. Review of system; unable to be obtained. General exam; elderly woman, unresponsive, lethargic. Tachypneic. On 100% nonrebreather mask. Requesting Provider: LISA MATA MD Date/Time of Note DATE: 03/09/19 TIME: 09:31 24 HR Interval Summary Free Text/Dictation Patient's condition is critical. Remains essentially unresponsive. General exam; elderly woman, orally intubated, unresponsive, currently in no distress. Exam/Review of Systems Exam Vitals Vital Signs Date Temp Pulse Resp B/P (MAP) Pulse Ox O2 O2 Flow FiO2 Time Delivery Rate 03/09/19 59 19 118/42 98 Mechanica 09:00 (67) l Ventilato r 03/09/19 100.4 08:00 03/09/19 30 05:20 Intake and Output 03/08/19 03/08/19 03/09/19 1515:00 23:00 07:00 IntakeIntake Total 970 ml 1550 ml 1460 ml OutputOutput Total 675 ml 665 ml 625 ml BalanceBalance 295 ml 885 ml 835 ml Exam H ENT exam; supple neck, no JVD. No lymphadenopathy. Midline trachea. No thyromegaly. Patient does have multiple carious teeth. Orally intubated. Pupils are small bilaterally. No neck masses. Nasogastric tube in place. Chest exam; diminished but clear breath sounds. S1-S2 audible, no murmurs. Regular rhythm. Abdomen exam; soft, mildly protuberant. No organomegaly. Bowel sounds are audible. Extremity exam; 2+ anasarca with improving bilateral lower extremity cellulitis. RHEUMATOLOGY NURSE exam; patient remains unresponsive. Results Result Diagram: 03/09/19 0430 03/09/19 0430 Results 24hrs Laboratory Tests Test 03/09/19 04:00 03/09/19 04:30 03/09/19 08:38 Blood Urea Nitrogen 50 H 50 H Creatinine 1.37 H 1.38 H Random Vancomycin Level 9.8 White Blood Count 10.4 # Red Blood Count 2.43 L Hemoglobin 7.5 L Hematocrit 25.6 L Mean Corpuscular Volume 105.3 H Mean Corpuscular Hemoglobin 30.9 Mean Corpuscular Hemoglobin Concent 29.3 L Red Cell Distribution Width 14.6 H Platelet Count 109 #L Mean Platelet Volume 13.9 H Immature Granulocytes % 2.400 H Neutrophils % 79.5 H Lymphocytes % 8.8 L Monocytes % 6.7 Eosinophils % 2.2 Basophils % 0.4 Nucleated Red Blood Cells % 0.0 Immature Granulocytes # 0.250 H Neutrophils # 8.3 H Lymphocytes # 0.9 Monocytes # 0.7 Eosinophils # 0.2 Basophils # 0.0 Nucleated Red Blood Cells # 0.0 Sodium Level 137 # Potassium Level 4.5 Chloride Level 107 # Carbon Dioxide Level 25 Anion Gap 5 Est Glomerular Filtrat Rate mL/min Glucose Level 546 #*H Calcium Level 7.0 L Total Bilirubin 0.3 Direct Bilirubin 0.00 Indirect Bilirubin 0.3 Aspartate Amino Transf (AST/SGOT) 40 Alanine Aminotransferase (ALT/SGPT) 47 Alkaline Phosphatase 143 H Total Protein 4.6 L Albumin 2.1 L Globulin 2.50 Albumin/Globulin Ratio 0.84 Bedside Glucose 153 Medications Medication Current Medications Dextrose (D50w Syringe) ONCE PRN IV DECREASED GLUCOSE Last administered on 03/02/19at 19:05; Admin Dose 50 ML; Start 03/02/19 at 14:00 Ondansetron HCl (Zofran Inj) 4 mg Q6H PRN IV NAUSEA AND/OR VOMITING; Start 03/02/19 at 14:00 Acetaminophen (Tylenol Liquid) 650 mg Q6H PRN PO PAIN LEVEL 1-3 OR FEVER Last administered on 03/07/19at 23:28; Admin Dose 650 MG; Start 03/02/19 at 14:00 Morphine Sulfate (morphine) 2 mg Q4H PRN IV PAIN LEVEL 7-10; Start 03/02/19 at 14:00 Famotidine (Pepcid Iv) 20 mg DAILY IV Last administered on 03/09/19at 09:05; Admin Dose 20 MG; Start 03/02/19 at 14:30 Clonidine (Catapres) 0.2 mg Q6H PRN PO ELEVATED BLOOD PRESSURE; Start 03/02/19 at 18:00 Hydralazine HCl (Apresoline) 10 mg Q4H PRN IV SBP more than 150 mm hg ; Start 03/02/19 at 23:38 Fentanyl 100 ml @ 2.5 mls/hr TITRATE IV Last administered on 03/04/19at 02:26; Admin Dose 2.5 MLS/HR; Start 03/03/19 at 09:30 Norepinephrine 250 ml @ 1.875 mls/ hr TITRATE IV Last administered on 03/03/19at 14:15; Admin Dose 3.75 MLS/HR; Start 03/03/19 at 14:00 IV Flush (NS 10 ml) 10 ml Q8 PRN IV IV PROTOCOL; Start 03/03/19 at 15:30 Miscellaneous Information 1 ea NOTE XX ; Start 03/03/19 at 15:30 Glucose (Glutose) 15 gm Q15M PRN PO DECREASED GLUCOSE; Start 03/03/19 at 15:30 Glucose (Glutose) 22.5 gm Q15M PRN PO DECREASED GLUCOSE; Start 03/03/19 at 15:30 Dextrose (D50w Syringe) 25 ml Q15M PRN IV DECREASED GLUCOSE; Start 03/03/19 at 15:30 Dextrose (D50w Syringe) 50 ml Q15M PRN IV DECREASED GLUCOSE; Start 03/03/19 at 15:30 Glucagon (Glucagen) 1 mg Q15M PRN IM DECREASED GLUCOSE; Start 03/03/19 at 15:30 Glucose (Glutose) 15 gm Q15M PRN BUCCAL DECREASED GLUCOSE; Start 03/03/19 at 15:30 Vancomycin HCl (Vanco Iv Per Pharmacy) VANCOMYCIN PER PHARMACY PER PROTOCOL XX ; Start 03/03/19 at 17:30 Mupirocin (Bactroban) 1 applic BID TOP Last administered on 03/09/19 09:06; Admin Dose 1 APPLIC; Start 03/04/19 at 13:30; Stop 03/14/19 at 13:29 Fluconazole (Diflucan) 100 mg DAILY PO Last administered on 03/09/19at 09:06; Admin Dose 100 MG; Start 03/04/19 at 13:00 Dextrose 1,000 ml @ 80 mls/hr [id number] IV Last administered on 03/09/19 09:04; Admin Dose 80 MLS/HR; Start 03/07/19 at 10:00 Citric Acid/ Sodium Citrate (Bicitra) 30 ml BID NGT Last administered on 03/09/19at 09:05; Admin Dose 30 ML; Start 03/08/19 at 21:00 Meropenem/Sodium Chloride 50 ml @ 100 mls/hr Q12 IVPB Last administered on 03/09/19at 09:05; Admin Dose 100 MLS/HR; Start 03/08/19 at 12:30 Vancomycin HCl 250 ml @ 125 mls/hr Q24H IVPB ; Start 03/09/19 at 11:00 GABRIEL PRESLEY Mar 09, 2019 09:34
[2019-03-09] MEDS: VANCOMYCIN 1 GM 250 ML IVPB SCH (11:10)
--- NOTE | 2019-03-09 11:58 | CONS ---
Assessment/Plan Assessment/Plan Assessment/Plan (Daily) 1. acute hyperkalemia with K 7.3 on admission - now resolved 2. acute kidney injury on CKD III 2/2 ischemic ATN + prerenal azotemia 3. Severe metabolic acidosis 4. septic shock on admission unclear source at this time 5. H/o COPD 6. H/o diastolic Heart failure with Preserved EF 7. H/o Hypothyroidisk 8. H/o Parkinoson's disease 9. h/o HTN 10. acute hypoxic respiratory failure intubate on ventilator Plan: Ventilator care pulmonary , remained intubated, on FiO2 30%, PEEP 5 IV abx Meropenem and PO Fluconazole < renally dose all abx and monitoe electrolytes BUN/Cr improved to 50/1.38- other electrolytes stable , BS running high, d/c IVF D5W, consider IVF 1/2 NS at 75 cc/hr x 2liter then stop DNR code status will follow up Consultation Date/Type/Reason Admit Date/Time Mar 02, 2019 at 13:39 Initial Consult Date 03/03/19 Type of Consult NEPHROLOGY Requesting Provider: LISA MATA MD Date/Time of Note DATE: 03/09/19 TIME: 11:58 Exam/Review of Systems Exam Vitals Vital Signs Date Temp Pulse Resp B/P (MAP) Pulse Ox O2 O2 Flow FiO2 Time Delivery Rate 03/09/19 69 20 98 11:32 03/09/19 126/41 Mechanical 11:00 (69) Ventilator 03/09/19 99.7 10:00 03/09/19 30 08:00 Intake and Output 03/08/19 03/08/19 03/09/19 1515:00 23:00 07:00 IntakeIntake Total 970 ml 1550 ml 1460 ml OutputOutput Total 675 ml 665 ml 625 ml BalanceBalance 295 ml 885 ml 835 ml Exam Constitutional: intubated on ventilator, Non verbal Respiratory: congested cough, crackles/rales, diminished breath sounds Cardiovascular: regular rate and rhythm, nl pulses Gastrointestinal: soft, non-tender, other (non distended, BS+) Musculoskeletal: muscle weakness, swelling (1+ edema ) Neurological: sedated on ventilator Lymph: nl lymph nodes Results Result Diagram: 8/6/19 0430 8/6/19 0430 Results 24hrs Laboratory Tests Test 03/09/19 04:00 03/09/19 04:30 03/09/19 08:38 Blood Urea Nitrogen 50 H 50 H Creatinine 1.37 H 1.38 H Random Vancomycin Level 9.8 White Blood Count 10.4 # Red Blood Count 2.43 L Hemoglobin 7.5 L Hematocrit 25.6 L Mean Corpuscular Volume 105.3 H Mean Corpuscular Hemoglobin 30.9 Mean Corpuscular Hemoglobin Concent 29.3 L Red Cell Distribution Width 14.6 H Platelet Count 109 #L Mean Platelet Volume 13.9 H Immature Granulocytes % 2.400 H Neutrophils % 79.5 H Lymphocytes % 8.8 L Monocytes % 6.7 Eosinophils % 2.2 Basophils % 0.4 Nucleated Red Blood Cells % 0.0 Immature Granulocytes # 0.250 H Neutrophils # 8.3 H Lymphocytes # 0.9 Monocytes # 0.7 Eosinophils # 0.2 Basophils # 0.0 Nucleated Red Blood Cells # 0.0 Sodium Level 137 # Potassium Level 4.5 Chloride Level 107 # Carbon Dioxide Level 25 Anion Gap 5 Est Glomerular Filtrat Rate mL/min Glucose Level 546 #*H Calcium Level 7.0 L Total Bilirubin 0.3 Direct Bilirubin 0.00 Indirect Bilirubin 0.3 Aspartate Amino Transf (AST/SGOT) 40 Alanine Aminotransferase (ALT/SGPT) 47 Alkaline Phosphatase 143 H Total Protein 4.6 L Albumin 2.1 L Globulin 2.50 Albumin/Globulin Ratio 0.84 Bedside Glucose 153 Medications Medication Current Medications Dextrose (D50w Syringe) ONCE PRN IV DECREASED GLUCOSE Last administered on 03/02/19at 19:05; Admin Dose 50 ML; Start 03/02/19 at 14:00 Ondansetron HCl (Zofran Inj) 4 mg Q6H PRN IV NAUSEA AND/OR VOMITING; Start 03/02/19 at 14:00 Acetaminophen (Tylenol Liquid) 650 mg Q6H PRN PO PAIN LEVEL 1-3 OR FEVER Last a dministered on 03/07/19at 23:28; Admin Dose 650 MG; Start 03/02/19 at 14:00 Morphine Sulfate (morphine) 2 mg Q4H PRN IV PAIN LEVEL 7-10; Start 03/02/19 at 14:00 Famotidine (Pepcid Iv) 20 mg DAILY IV Last administered on 03/09/19at 09:05; Admin Dose 20 MG; Start 03/02/19 at 14:30 Clonidine (Catapres) 0.2 mg Q6H PRN PO ELEVATED BLOOD PRESSURE; Start 03/02/19 at 18:00 Hydralazine HCl (Apresoline) 10 mg Q4H PRN IV SBP more than 150 mm hg ; Start 03/02/19 at 23:38 Fentanyl 100 ml @ 2.5 mls/hr TITRATE IV Last administered on 03/04/19at 02:26; Admin Dose 2.5 MLS/HR; Start 03/03/19 at 09:30 Norepinephrine 250 ml @ 1.875 mls/ hr TITRATE IV Last administered on 03/03/19at 14:15; Admin Dose 3.75 MLS/HR; Start 03/03/19 at 14:00 IV Flush (NS 10 ml) 10 ml Q8 PRN IV IV PROTOCOL; Start 03/03/19 at 15:30 Miscellaneous Information 1 ea NOTE XX ; Start 03/03/19 at 15:30 Glucose (Glutose) 15 gm Q15M PRN PO DECREASED GLUCOSE; Start 03/03/19 at 15:30 Glucose (Glutose) 22.5 gm Q15M PRN PO DECREASED GLUCOSE; Start 03/03/19 at 15:30 Dextrose (D50w Syringe) 25 ml Q15M PRN IV DECREASED GLUCOSE; Start 03/03/19 at 15:30 Dextrose (D50w Syringe) 50 ml Q15M PRN IV DECREASED GLUCOSE; Start 03/03/19 at 15:30 Glucagon (Glucagen) 1 mg Q15M PRN IM DECREASED GLUCOSE; Start 03/03/19 at 15:30 Glucose (Glutose) 15 gm Q15M PRN BUCCAL DECREASED GLUCOSE; Start 03/03/19 at 15:30 Vancomycin HCl (Vanco Iv Per Pharmacy) VANCOMYCIN PER PHARMACY PER PROTOCOL XX ; Start 03/03/19 at 17:30 Mupirocin (Bactroban) 1 applic BID TOP Last administered on 03/09/19at 09:06; Admin Dose 1 APPLIC; Start 03/04/19 at 13:30; Stop 03/14/19 at 13:29 Fluconazole (Diflucan) 100 mg DAILY PO Last administered on 03/09/19at 09:06; Admin Dose 100 MG; Start 03/04/19 at 13:00 Dextrose 1,000 ml @ 80 mls/hr [id number] IV Last administered on 03/09/19 09:04; Admin Dose 80 MLS/HR; Start 03/07/19 at 10:00 Citric Acid/ Sodium Citrate (Bicitra) 30 ml BID NGT Last administered on 03/09/19 09:05; Admin Dose 30 ML; Start 03/08/19 at 21:00 Meropenem/Sodium Chloride 50 ml @ 100 mls/hr Q12 IVPB Last administered on 03/09/19at 09:05; Admin Dose 100 MLS/HR; Start 03/08/19 at 12:30 Vancomycin HCl 250 ml @ 125 mls/hr Q24H IVPB Last administered on 03/09/19at 11:10; Admin Dose 125 MLS/HR; Start 03/09/19 at 11:00 ENRIQUETA HUNG MD Mar 09, 2019 11:58
--- NOTE | 2019-03-09 13:33 | PN ---
Date/Time of Note Date/Time of Note DATE: 03/09/19 TIME: 13:32 Assessment/Plan VTE Prophylaxis Risk score (from [facility] [place])>0 risk: 13 SCD applied (from [facility] [place]): No SCD contraindicated: other Pharmacological prophylaxis: LMWH Lines/Catheters IV Catheter Type (from [facility]): PICC Line Central line still needed: Yes Urinary Cath still in place: Yes Reason Cath still needed: skin wounds contaminated by urine Assessment/Plan Hospital Course 1) hyperkalemia - treat - secondary to renal failure - monitor 2) renal failure - appreciate nephrology help - patient may need to be started on hemodialysis 3) altered level of consciousness - probably seconardary to #2 - intubated for airway protection Result Diagram: 03/09/19 0430 03/09/19 0430 Results 24hrs Laboratory Tests Test 03/09/19 04:00 03/09/19 04:30 03/09/19 08:38 Blood Urea Nitrogen 50 H 50 H Creatinine 1.37 H 1.38 H Random Vancomycin Level 9.8 White Blood Count 10.4 # Red Blood Count 2.43 L Hemoglobin 7.5 L Hematocrit 25.6 L Mean Corpuscular Volume 105.3 H Mean Corpuscular Hemoglobin 30.9 Mean Corpuscular Hemoglobin Concent 29.3 L Red Cell Distribution Width 14.6 H Platelet Count 109 #L Mean Platelet Volume 13.9 H Immature Granulocytes % 2.400 H Neutrophils % 79.5 H Lymphocytes % 8.8 L Monocytes % 6.7 Eosinophils % 2.2 Basophils % 0.4 Nucleated Red Blood Cells % 0.0 Immature Granulocytes # 0.250 H Neutrophils # 8.3 H Lymphocytes # 0.9 Monocytes # 0.7 Eosinophils # 0.2 Basophils # 0.0 Nucleated Red Blood Cells # 0.0 Sodium Level 137 # Potassium Level 4.5 Chloride Level 107 # Carbon Dioxide Level 25 Anion Gap 5 Est Glomerular Filtrat Rate mL/min Glucose Level 546 #*H Calcium Level 7.0 L Total Bilirubin 0.3 Direct Bilirubin 0.00 Indirect Bilirubin 0.3 Aspartate Amino Transf (AST/SGOT) 40 Alanine Aminotransferase (ALT/SGPT) 47 Alkaline Phosphatase 143 H Total Protein 4.6 L Albumin 2.1 L Globulin 2.50 Albumin/Globulin Ratio 0.84 Bedside Glucose 153 Subjective 24 Hr Interval Summary Free Text/Dictation Patient remain sedated, not responsive to voice or touch Exam/Review of Systems Exam Vitals Vital Signs Date Temp Pulse Resp B/P (MAP) Pulse Ox O2 O2 Flow FiO2 Time Delivery Rate 03/09/19 69 20 98 11:32 03/09/19 126/41 Mechanical 11:00 (69) Ventilator 03/09/19 99.7 10:00 03/09/19 30 08:00 Intake and Output 03/08/19 03/08/19 03/09/19 1515:00 23:00 07:00 IntakeIntake Total 970 ml 1550 ml 1460 ml OutputOutput Total 675 ml 665 ml 625 ml BalanceBalance 295 ml 885 ml 835 ml Constitutional: well developed Head: normocephalic, atraumatic Neck: supple Respiratory: diminished breath sounds Cardiovascular: regular rate and rhythm Gastrointestinal: soft, non-tender Extremities: normal pulses Results Results 24hrs Laboratory Tests Test 03/09/19 04:00 03/09/19 04:30 03/09/19 08:38 Blood Urea Nitrogen 50 H 50 H Creatinine 1.37 H 1.38 H Random Vancomycin Level 9.8 White Blood Count 10.4 # Red Blood Count 2.43 L Hemoglobin 7.5 L Hematocrit 25.6 L Mean Corpuscular Volume 105.3 H Mean Corpuscular Hemoglobin 30.9 Mean Corpuscular Hemoglobin Concent 29.3 L Red Cell Distribution Width 14.6 H Platelet Count 109 #L Mean Platelet Volume 13.9 H Immature Granulocytes % 2.400 H Neutrophils % 79.5 H Lymphocytes % 8.8 L Monocytes % 6.7 Eosinophils % 2.2 Basophils % 0.4 Nucleated Red Blood Cells % 0.0 Immature Granulocytes # 0.250 H Neutrophils # 8.3 H Lymphocytes # 0.9 Monocytes # 0.7 Eosinophils # 0.2 Basophils # 0.0 Nucleated Red Blood Cells # 0.0 Sodium Level 137 # Potassium Level 4.5 Chloride Level 107 # Carbon Dioxide Level 25 Anion Gap 5 Est Glomerular Filtrat Rate mL/min Glucose Level 546 #*H Calcium Level 7.0 L Total Bilirubin 0.3 Direct Bilirubin 0.00 Indirect Bilirubin 0.3 Aspartate Amino Transf (AST/SGOT) 40 Alanine Aminotransferase (ALT/SGPT) 47 Alkaline Phosphatase 143 H Total Protein 4.6 L Albumin 2.1 L Globulin 2.50 Albumin/Globulin Ratio 0.84 Bedside Glucose 153 Medications Medication Current Medications Dextrose (D50w Syringe) ONCE PRN IV DECREASED GLUCOSE Last administered on 03/02/19at 19:05; Admin Dose 50 ML; Start 03/02/19 at 14:00 Ondansetron HCl (Zofran Inj) 4 mg Q6H PRN IV NAUSEA AND/OR VOMITING; Start 03/02/19 at 14:00 Acetaminophen (Tylenol Liquid) 650 mg Q6H PRN PO PAIN LEVEL 1-3 OR FEVER Last administered on 03/07/19at 23:28; Admin Dose 650 MG; Start 03/02/19 at 14:00 Morphine Sulfate (morphine) 2 mg Q4H PRN IV PAIN LEVEL 7-10; Start 03/02/19 at 14:00 Clonidine (Catapres) 0.2 mg Q6H PRN PO ELEVATED BLOOD PRESSURE; Start 03/02/19 at 18:00 Hydralazine HCl (Apresoline) 10 mg Q4H PRN IV SBP more than 150 mm hg ; Start 03/02/19 at 23:38 Fentanyl 100 ml @ 2.5 mls/hr TITRATE IV Last administered on 03/04/19at 02:26; Admin Dose 2.5 MLS/HR; Start 03/03/19 at 09:30 Norepinephrine 250 ml @ 1.875 mls/ hr TITRATE IV Last administered on 03/03/19at 14:15; Admin Dose 3.75 MLS/HR; Start 03/03/19 at 14:00 IV Flush (NS 10 ml) 10 ml Q8 PRN IV IV PROTOCOL; Start 03/03/19 at 15:30 Miscellaneous Information 1 ea NOTE XX ; Start 03/03/19 at 15:30 Glucose (Glutose) 15 gm Q15M PRN PO DECREASED GLUCOSE; Start 03/03/19 at 15:30 Glucose (Glutose) 22.5 gm Q15M PRN PO DECREASED GLUCOSE; Start 03/03/19 at 15:30 Dextrose (D50w Syringe) 25 ml Q15M PRN IV DECREASED GLUCOSE; Start 03/03/19 at 15:30 Dextrose (D50w Syringe) 50 ml Q15M PRN IV DECREASED GLUCOSE; Start 03/03/19 at 15:30 Glucagon (Glucagen) 1 mg Q15M PRN IM DECREASED GLUCOSE; Start 03/03/19 at 15:30 Glucose (Glutose) 15 gm Q15M PRN BUCCAL DECREASED GLUCOSE; Start 03/03/19 at 15:30 Vancomycin HCl (Vanco Iv Per Pharmacy) VANCOMYCIN PER PHARMACY PER PROTOCOL XX ; Start 03/03/19 at 17:30 Mupirocin (Bactroban) 1 applic BID TOP Last administered on 03/09/19 09:06; Admin Dose 1 APPLIC; Start 03/04/19 at 13:30; Stop 03/14/19 at 13:29 Fluconazole (Diflucan) 100 mg DAILY PO Last administered on 03/09/19 09:06; Admin Dose 100 MG; Start 03/04/19 at 13:00 Dextrose 1,000 ml @ 80 mls/hr [id number] IV Last administered on 03/09/19 09:04; Admin Dose 80 MLS/HR; Start 03/07/19 at 10:00 Citric Acid/ Sodium Citrate (Bicitra) 30 ml BID NGT Last administered on 03/09 09:05; Admin Dose 30 ML; Start 03/08/19 at 21:00 Meropenem/Sodium Chloride 50 ml @ 100 mls/hr Q12 IVPB Last administered on 03/09/19at 09:05; Admin Dose 100 MLS/HR; Start 03/08/19 at 12:30 Vancomycin HCl 250 ml @ 125 mls/hr Q24H IVPB Last administered on 03/09/19at 11:10; Admin Dose 125 MLS/HR; Start 03/09/19 at 11:00 Famotidine (Pepcid) 20 mg DAILY GTB ; Start 03/10/19 at 09:00 VERNON COWART Mar 09, 2019 13:33
--- NOTE | 2019-03-09 13:39 | CONS ---
Assessment/Plan Assessment/Plan Hospital Course (Demo Recall) No acute events patient remains on vent support off sedation, still very lethargic, T-max 100.4 WBC 10.4 platelets 109 neutrophils 79.5 BUN 50 creatinine 1.38 Microbiology: Endotracheal aspirate grew MRSA urine culture grew Klebsiella Ela albicans Antimicrobials: Vancomycin Merrem, Fluconazole INDWELLINGS: Endotracheal tube, NG tube, Cabrera catheter, PICC line. DIAGNOSTICS: Renal ultrasound revealed no evidence of hydronephrosis. A chest x-ray revealed atelectatic changes with superimposed infectious/inflammatory process in the right lung. Gallbladder ultrasound on admission revealed dilated pancreatic duct measuring up to 4 mm, mass in the region of pancreatic head shalom ot be excluded. Recommendation of CT with contrast or MRCP, no evidence of gallstones. ALLERGIES: NONE. PHYSICAL EXAMINATION: GENERAL: This is a chronically ill-appearing, obese elderly woman who is in no distress. Head atraumatic, normocephalic. NECK: Obese. CHEST: Rise symmetrical. Breath sounds diminished to bases. HEART: S1, S2. ABDOMEN: Obese, soft, bowel tones present. EXTREMITIES: Bilateral lower extremities edema, erythema, dsg intact. ASSESSMENT: 1. Severe sepsis with shock==> off pressors. 2. Urinary tract infection. 3. Acute hypoxemic respiratory failure, poss aspiration. 4. Acute possibly on chronic kidney disease. 5. Congestive heart failure. 6. Morbid obesity. 7. MRSA nares colonization. 8. Acute encephalopathy PLAN: Clinically unchanged, continue present care and antibiotics, await for repeat blood cultures, vent management per pulmonary Consultation Date/Type/Reason Admit Date/Time Mar 02, 2019 at 13:39 Initial Consult Date 03/03/19 Type of Consult id Requesting Provider: LISA MATA MD Date/Time of Note DATE: 03/09/19 TIME: 13:37 Exam/Review of Systems Exam Vitals Vital Signs Date Temp Pulse Resp B/P (MAP) Pulse Ox O2 O2 Flow FiO2 Time Delivery Rate 03/09/19 69 20 98 11:32 03/09/19 126/41 Mechanical 11:00 (69) Ventilator 03/09/19 99.7 10:00 03/09/19 30 08:00 Intake and Output 03/08/19 03/08/19 03/09/19 1515:00 23:00 07:00 IntakeIntake Total 970 ml 1550 ml 1460 ml OutputOutput Total 675 ml 665 ml 625 ml BalanceBalance 295 ml 885 ml 835 ml Results Result Diagram: 03/09/19 0430 03/09/19 0430 Results 24hrs Laboratory Tests Test 03/09/19 04:00 03/09/19 04:30 03/09/19 08:38 Blood Urea Nitrogen 50 H 50 H Creatinine 1.37 H 1.38 H Random Vancomycin Level 9.8 White Blood Count 10.4 # Red Blood Count 2.43 L Hemoglobin 7.5 L Hematocrit 25.6 L Mean Corpuscular Volume 105.3 H Mean Corpuscular Hemoglobin 30.9 Mean Corpuscular Hemoglobin Concent 29.3 L Red Cell Distribution Width 14.6 H Platelet Count 109 #L Mean Platelet Volume 13.9 H Immature Granulocytes % 2.400 H Neutrophils % 79.5 H Lymphocytes % 8.8 L Monocytes % 6.7 Eosinophils % 2.2 Basophils % 0.4 Nucleated Red Blood Cells % 0.0 Immature Granulocytes # 0.250 H Neutrophils # 8.3 H Lymphocytes # 0.9 Monocytes # 0.7 Eosinophils # 0.2 Basophils # 0.0 Nucleated Red Blood Cells # 0.0 Sodium Level 137 # Potassium Level 4.5 Chloride Level 107 # Carbon Dioxide Level 25 Anion Gap 5 Est Glomerular Filtrat Rate mL/min Glucose Level 546 #*H Calcium Level 7.0 L Total Bilirubin 0.3 Direct Bilirubin 0.00 Indirect Bilirubin 0.3 Aspartate Amino Transf (AST/SGOT) 40 Alanine Aminotransferase (ALT/SGPT) 47 Alkaline Phosphatase 143 H Total Protein 4.6 L Albumin 2.1 L Globulin 2.50 Albumin/Globulin Ratio 0.84 Bedside Glucose 153 Medications Medication Current Medications Dextrose (D50w Syringe) ONCE PRN IV DECREASED GLUCOSE Last administered on 03/02/19at 19:05; Admin Dose 50 ML; Start 03/02/19 at 14:00 Ondansetron HCl (Zofran Inj) 4 mg Q6H PRN IV NAUSEA AND/OR VOMITING; Start 03/02/19 at 14:00 Acetaminophen (Tylenol Liquid) 650 mg Q6H PRN PO PAIN LEVEL 1-3 OR FEVER Last administered on 03/07/19at 23:28; Admin Dose 650 MG; Start 03/02/19 at 14:00 Morphine Sulfate (morphine) 2 mg Q4H PRN IV PAIN LEVEL 7-10; Start 03/02/19 at 14:00 Clonidine (Catapres) 0.2 mg Q6H PRN PO ELEVATED BLOOD PRESSURE; Start 03/02/19 at 18:00 Hydralazine HCl (Apresoline) 10 mg Q4H PRN IV SBP more than 150 mm hg ; Start 03/02/19 at 23:38 Fentanyl 100 ml @ 2.5 mls/hr TITRATE IV Last administered on 03/04/19at 02:26; Admin Dose 2.5 MLS/HR; Start 03/03/19 at 09:30 Norepinephrine 250 ml @ 1.875 mls/ hr TITRATE IV Last administered on 03/03/19at 14:15; Admin Dose 3.75 MLS/HR; Start 03/03/19 at 14:00 IV Flush (NS 10 ml) 10 ml Q8 PRN IV IV PROTOCOL; Start 03/03/19 at 15:30 Miscellaneous Information 1 ea NOTE XX ; Start 03/03/19 at 15:30 Glucose (Glutose) 15 gm Q15M PRN PO DECREASED GLUCOSE; Start 03/03/19 at 15:30 Glucose (Glutose) 22.5 gm Q15M PRN PO DECREASED GLUCOSE; Start 03/03/19 at 15:30 Dextrose (D50w Syringe) 25 ml Q15M PRN IV DECREASED GLUCOSE; Start 03/03/19 at 15:30 Dextrose (D50w Syringe) 50 ml Q15M PRN IV DECREASED GLUCOSE; Start 03/03/19 at 15:30 Glucagon (Glucagen) 1 mg Q15M PRN IM DECREASED GLUCOSE; Start 03/03/19 at 15:30 Glucose (Glutose) 15 gm Q15M PRN BUCCAL DECREASED GLUCOSE; Start 03/03/19 at 15:30 Vancomycin HCl (Vanco Iv Per Pharmacy) VANCOMYCIN PER PHARMACY PER PROTOCOL XX ; Start 03/03/19 at 17:30 Mupirocin (Bactroban) 1 applic BID TOP Last administered on 03/09/19at 09:06; Admin Dose 1 APPLIC; Start 03/04/19 at 13:30; Stop 03/14/19 at 13:29 Fluconazole (Diflucan) 100 mg DAILY PO Last administered on 03/09/19at 09:06; Admin Dose 100 MG; Start 03/04/19 at 13:00 Dextrose 1,000 ml @ 80 mls/hr [id number] IV Last administered on 03/09/19at 09:04; Admin Dose 80 MLS/HR; Start 03/07/19 at 10:00 Citric Acid/ Sodium Citrate (Bicitra) 30 ml BID NGT Last administered on 03/09/19at 09:05; Admin Dose 30 ML; Start 03/08/19 at 21:00 Meropenem/Sodium Chloride 50 ml @ 100 mls/hr Q12 IVPB Last administered on 03/09/19at 09:05; Admin Dose 100 MLS/HR; Start 03/08/19 at 12:30 Vancomycin HCl 250 ml @ 125 mls/hr Q24H IVPB Last administered on 03/09/19at 11:10; Admin Dose 125 MLS/HR; Start 03/09/19 at 11:00 Famotidine (Pepcid) 20 mg DAILY GTB ; Start 03/10/19 at 09:00 ANITA VIERA NP Mar 09, 2019 13:39
[2019-03-09] MEDS: SOD CHLORIDE 0.45% 1,000 ML IV SCH (20:01)
[2019-03-10] VITALS (35 sets, daily range): BP systolic 94–135; BP diastolic 37–76; PULSE 53–71; RESP 13–28
[2019-03-10] MEDS: DEXTROSE 5% 1,000 ML IV SCH (00:30)
--- NOTE | 2019-03-10 07:46 | CONS ---
Assessment/Plan Assessment/Plan Assessment/Plan (Daily) Long discussion this morning with patient's next of kin my initial conversation with her was DO NOT RESUSCITATE order change. This morning I discussed that patient is still on the ventilator she is not requiring dialysis at this time but she still has profound fluid electrolyte abnormalities chest x-ray done 2 days ago showed some bibasilar infiltrates. She still on broad-spectrum IV antibiotic coverage she is only requiring fentanyl at this point but there is been no significant improvement in her overall neurological condition. Long discussion concerning options at this time she is receptive to speaking to in- house general inpatient care hospice at this time. I will make the referral Consultation Date/Type/Reason Admit Date/Time Mar 02, 2019 at 13:39 Date/Time of Note DATE: 03/10/19 TIME: 07:44 Past Medical History Medical History: other (chronic diastolic congestive heart failure, COPD, hy perlipidemia, hypothyroidism, chronic kidney disease, peripheral vascular disease with bilateral lower extremity wounds, Parkinson's disease) Home Meds Reported Medications Diclofenac Sodium* (Voltaren* Gel) 1% -100 Gm Gel, 2 GM TOP BID PRN for PAIN, #1 TUB 03/02/19 Carbidopa/Levodopa (Sinemet 25-100 mg Tablet) 1 Each Tablet, 1 EACH PO TID, TAB 03/02/19 Furosemide* (Furosemide*) 40 Mg Tablet, 60 MG PO DAILY, TAB 03/02/19 Hydrocodone/Acetaminophen ([place] 5-325 Tablet) 1 Each Tablet, 1 EACH PO Q12H PRN for PRN, TAB 03/02/19 Levothyroxine Sodium* (Levothyroxine Sodium*) 150 Mcg Tablet, 150 MCG PO BEFORE BREAKFAST, #30 TAB 03/02/19 Medications Current Medications Dextrose (D50w Syringe) ONCE PRN IV DECREASED GLUCOSE Last administered on 03/02/19at 19:05; Admin Dose 50 ML; Start 03/02/19 at 14:00 Ondansetron HCl (Zofran Inj) 4 mg Q6H PRN IV NAUSEA AND/OR VOMITING; Start 03/02/19 at 14:00 Acetaminophen (Tylenol Liquid) 650 mg Q6H PRN PO PAIN LEVEL 1-3 OR FEVER Last administered on 03/07/19at 23:28; Admin Dose 650 MG; Start 03/02/19 at 14:00 Morphine Sulfate (morphine) 2 mg Q4H PRN IV PAIN LEVEL 7-10; Start 03/02/19 at 14:00 Clonidine (Catapres) 0.2 mg Q6H PRN PO ELEVATED BLOOD PRESSURE; Start 03/02/19 at 18:00 Hydralazine HCl (Apresoline) 10 mg Q4H PRN IV SBP more than 150 mm hg ; Start 03/02/19 at 23:38 Fentanyl 100 ml @ 2.5 mls/hr TITRATE IV Last administered on 03/04/19at 02:26; Admin Dose 2.5 MLS/HR; Start 03/03/19 at 09:30 Norepinephrine 250 ml @ 1.875 mls/ hr TITRATE IV Last administered on 03/03/19at 14:15; Admin Dose 3.75 MLS/HR; Start 03/03/19 at 14:00 IV Flush (NS 10 ml) 10 ml Q8 PRN IV IV PROTOCOL; Start 03/03/19 at 15:30 Miscellaneous Information 1 ea NOTE XX ; Start 03/03/19 at 15:30 Glucose (Glutose) 15 gm Q15M PRN PO DECREASED GLUCOSE; Start 03/03/19 at 15:30 Glucose (Glutose) 22.5 gm Q15M PRN PO DECREASED GLUCOSE; Start 03/03/19 at 15:30 Dextrose (D50w Syringe) 25 ml Q15M PRN IV DECREASED GLUCOSE; Start 03/03/19 at 15:30 Dextrose (D50w Syringe) 50 ml Q15M PRN IV DECREASED GLUCOSE; Start 03/03/19 at 15:30 Glucagon (Glucagen) 1 mg Q15M PRN IM DECREASED GLUCOSE; Start 03/03/19 at 15:30 Glucose (Glutose) 15 gm Q15M PRN BUCCAL DECREASED GLUCOSE; Start 03/03/19 at 15:30 Vancomycin HCl (Vanco Iv Per Pharmacy) VANCOMYCIN PER PHARMACY PER PROTOCOL XX ; Start 03/03/19 at 17:30 Mupirocin (Bactroban) 1 applic BID TOP Last administered on 03/09/19at 20:01; Admin Dose 1 APPLIC; Start 03/04/19 at 13:30; Stop 03/14/19 at 13:29 Fluconazole (Diflucan) 100 mg DAILY PO Last administered on 03/09/19at 09:06; Admin Dose 100 MG; Start 03/04/19 at 13:00 Citric Acid/ Sodium Citrate (Bicitra) 30 ml BID NGT Last administered on 03/09/19at 20:01; Admin Dose 30 ML; Start 03/08/19 at 21:00 Meropenem/Sodium Chloride 50 ml @ 100 mls/hr Q12 IVPB Last administered on 03/09/19at 20:01; Admin Dose 100 MLS/HR; Start 03/08/19 at 12:30 Vancomycin HCl 250 ml @ 125 mls/hr Q24H IVPB Last administered on 03/09/19at 11:10; Admin Dose 125 MLS/HR; Start 03/09/19 at 11:00 Famotidine (Pepcid) 20 mg DAILY GTB ; Start 03/10/19 at 09:00 Sodium Chloride 1,000 ml @ 75 mls/hr [id number] IV Last administered on 03/09/19at 20:01; Admin Dose 75 MLS/HR; Start 03/09/19 at 20:00 Allergies: Coded Allergies: No Known Allergy (Unverified , 03/02/19) Past Surgical History Past Surgical Hx: other (Not available ) Social History Alcohol Use: none Smoking Status: Never smoker Drug Use: none Exam/Review of Systems Exam Vitals Vital Signs Date Temp Pulse Resp B/P (MAP) Pulse Ox O2 O2 Flow FiO2 Time Delivery Rate 03/10/19 68 21 99 30 07:16 03/10/19 126/55 Mechanical 06:00 (78) Ventilator 03/10/19 98.4 04:00 Intake and Output 03/09/19 03/09/19 03/10/19 1515:00 23:00 07:00 IntakeIntake Total 1470 ml 1245 ml 1305 ml OutputOutput Total 385 ml 510 ml 460 ml BalanceBalance 1085 ml 735 ml 845 ml Results Result Diagram: 03/10/19 0400 03/10/19 0400 Results 24hrs Laboratory Tests Test 03/09/19 08:38 03/10/19 04:00 Bedside Glucose 153 White Blood Count 8.6 Red Blood Count 2.51 L Hemoglobin 7.6 L Hematocrit 25.5 L Mean Corpuscular Volume 101.6 H Mean Corpuscular Hemoglobin 30.3 Mean Corpuscular Hemoglobin Concent 29.8 L Red Cell Distribution Width 13.8 Platelet Count 172 # Mean Platelet Volume 13.6 H Immature Granulocytes % 1.900 H Neutrophils % 76.7 Lymphocytes % 9.0 L Monocytes % 7.9 Eosinophils % 3.8 Basophils % 0.7 Nucleated Red Blood Cells % 0.0 Immature Granulocytes # 0.160 H Neutrophils # 6.6 Lymphocytes # 0.8 Monocytes # 0.7 Eosinophils # 0.3 Basophils # 0.1 Nucleated Red Blood Cells # 0.0 Sodium Level 144 Potassium Level 4.6 Chloride Level 114 H Carbon Dioxide Level 26 Anion Gap 4 L Blood Urea Nitrogen 40 H Creatinine 1.19 H Est Glomerular Filtrat Rate mL/min Glucose Level 123 # Calcium Level 7.3 L Phosphorus Level 3.2 Magnesium Level 2.2 Medications Medication Current Medications Dextrose (D50w Syringe) ONCE PRN IV DECREASED GLUCOSE Last administered on 03/02/19at 19:05; Admin Dose 50 ML; Start 03/02/19 at 14:00 Ondansetron HCl (Zofran Inj) 4 mg Q6H PRN IV NAUSEA AND/OR VOMITING; Start 03/02/19 at 14:00 Acetaminophen (Tylenol Liquid) 650 mg Q6H PRN PO PAIN LEVEL 1-3 OR FEVER Last administered on 03/07/19at 23:28; Admin Dose 650 MG; Start 03/02/19 at 14:00 Morphine Sulfate (morphine) 2 mg Q4H PRN IV PAIN LEVEL 7-10; Start 03/02/19 at 14:00 Clonidine (Catapres) 0.2 mg Q6H PRN PO ELEVATED BLOOD PRESSURE; Start 03/02/19 at 18:00 Hydralazine HCl (Apresoline) 10 mg Q4H PRN IV SBP more than 150 mm hg ; Start 03/02/19 at 23:38 Fentanyl 100 ml @ 2.5 mls/hr TITRATE IV Last administered on 03/04/19at 02:26; Admin Dose 2.5 MLS/HR; Start 03/03/19 at 09:30 Norepinephrine 250 ml @ 1.875 mls/ hr TITRATE IV Last administered on 03/03/19at 14:15; Admin Dose 3.75 MLS/HR; Start 03/03/19 at 14:00 IV Flush (NS 10 ml) 10 ml Q8 PRN IV IV PROTOCOL; Start 03/03/19 at 15:30 Miscellaneous Information 1 ea NOTE XX ; Start 03/03/19 at 15:30 Glucose (Glutose) 15 gm Q15M PRN PO DECREASED GLUCOSE; Start 03/03/19 at 15:30 Glucose (Glutose) 22.5 gm Q15M PRN PO DECREASED GLUCOSE; Start 03/03/19 at 15:30 Dextrose (D50w Syringe) 25 ml Q15M PRN IV DECREASED GLUCOSE; Start 03/03/19 at 15:30 Dextrose (D50w Syringe) 50 ml Q15M PRN IV DECREASED GLUCOSE; Start 03/03/19 at 15:30 Glucagon (Glucagen) 1 mg Q15M PRN IM DECREASED GLUCOSE; Start 03/03/19 at 15:30 Glucose (Glutose) 15 gm Q15M PRN BUCCAL DECREASED GLUCOSE; Start 03/03/19 at 15:30 Vancomycin HCl (Vanco Iv Per Pharmacy) VANCOMYCIN PER PHARMACY PER PROTOCOL XX ; Start 03/03/19 at 17:30 Mupirocin (Bactroban) 1 applic BID TOP Last administered on 03/09/19at 20:01; Admin Dose 1 APPLIC; Start 03/04/19 at 13:30; Stop 03/14/19 at 13:29 Fluconazole (Diflucan) 100 mg DAILY PO Last administered on 03/09/19at 09:06; Admin Dose 100 MG; Start 03/04/19 at 13:00 Citric Acid/ Sodium Citrate (Bicitra) 30 ml BID NGT Last administered on 03/09/19at 20:01; Admin Dose 30 ML; Start 03/08/19 at 21:00 Meropenem/Sodium Chloride 50 ml @ 100 mls/hr Q12 IVPB Last administered on 03/09/19at 20:01; Admin Dose 100 MLS/HR; Start 03/08/19 at 12:30 Vancomycin HCl 250 ml @ 125 mls/hr Q24H IVPB Last administered on 03/09/19at 11:10; Admin Dose 125 MLS/HR; Start 03/09/19 at 11:00 Famotidine (Pepcid) 20 mg DAILY GTB ; Start 03/10/19 at 09:00 Sodium Chloride 1,000 ml @ 75 mls/hr [id number] IV Last administered on 03/09/19at 20:01; Admin Dose 75 MLS/HR; Start 03/09/19 at 20:00 YARON BARNHART Mar 10, 2019 07:46
[2019-03-10] MEDS: MUPIROCIN 2% 22 GM OINT TOP SCH ×2 (08:03→21:13)
[2019-03-10] MEDS: MEROPENEM 500MG/50 ML (PMX) 50 ML IVPB SCH ×2 (08:04→21:13)
[2019-03-10] MEDS: CITRIC ACID/NA CITRATE 30 ML CUP NGT SCH ×2 (08:04→21:13)
[2019-03-10] MEDS: FLUCONAZOLE 100 MG TAB PO SCH (08:04)
[2019-03-10] MEDS: FAMOTIDINE 20 MG TAB GTB SCH (08:04)
[2019-03-10] MEDS: ACETAMINOPHEN 650MG/20.3ML CUP PO PRN ×2 (08:41→21:13)
[2019-03-10] MEDS: SOD CHLORIDE 0.45% 1,000 ML IV SCH ×2 (08:42→22:40)
--- NOTE | 2019-03-10 09:36 | CONS ---
Assessment/Plan Assessment/Plan Assessment/Plan (Daily) Ventilator setting; assist control of 18, tidal volume 400, PEEP of 5, 30% FiO2. Assessment and recommendations; 1. Patient admitted with acute on chronic renal failure with hyperkalemia requiring intubation for altered mental status. 2. Bilateral lower extremity cellulitis and UTI. Currently on appropriate antimicrobial regimen. 3. Persistent severe encephalopathy. 4. Anemia and thrombocytopenia. 5. CHF. 6. Difficult to rule out some element of pneumonia. Continue current supportive care. Patient's family likely will opt for palliative care. Prognosis is very poor. Consultation Date/Type/Reason Admit Date/Time Mar 02, 2019 at 13:39 Initial Consult Date 03/03/19 Type of Consult Pulmonary/critical care Patient is a 79-year-old female who was brought in by family to the hospital with worsening overall mental status and failure to thrive. Patient was transferred to ICU. Patient was on 100% nonrebreather and I was asked to evaluate the patient. The patient was completely unresponsive and was showing tachypnea. It was decided to electively intubate the patient which was done readily at bedside. Patient was unable to give any history by herself whatsoever. History is been obtained from medical records. Past medical history; 1. History of multiple admissions to hospital for various reasons. 2. History of Parkinson's disease. 3. Hypothyroidism. 4. CHF. 5. COPD. 6. Chronic renal insufficiency. 7. Severe peripheral vascular disease. Medications; reviewed. Allergies; none. Social history; patient has a history of smoking. Family history; patient has a supportive niece. Lives at home. Occupational history; not available. Review of system; unable to be obtained. General exam; elderly woman, unresponsive, lethargic. Tachypneic. On 100% nonrebreather mask. Requesting Provider: LISA MATA MD Date/Time of Note DATE: 03/10/19 TIME: 09:32 24 HR Interval Summary Free Text/Dictation Patient's condition is critical. Remains profoundly unresponsive. Patient however has remained hemodynamically stable. General exam; elderly woman, orally intubated, unresponsive, currently in no distress. Exam/Review of Systems Exam Vitals Vital Signs Date Temp Pulse Resp B/P (MAP) Pulse Ox O2 O2 Flow FiO2 Time Delivery Rate 03/10/19 63 23 100 30 09:03 03/10/19 101.1 08:41 03/10/19 126/55 Mechanica 06:00 (78) l Ventilato r Intake and Output 03/09/19 03/09/19 03/10/19 1515:00 23:00 07:00 IntakeIntake Total 1470 ml 1245 ml 1305 ml OutputOutput Total 385 ml 510 ml 460 ml BalanceBalance 1085 ml 735 ml 845 ml Exam H ENT exam; supple neck, no JVD. No lymphadenopathy. Midline trachea. No thyromegaly. Orally intubated. Patient does have multiple carious teeth. Nasogastric tube in place. Chest exam; diminished but clear breath sounds. S1-S2 audible, no murmurs. Regular rhythm. Abdomen exam; soft, no organomegaly. Bowel sounds are audible. Mildly protuberant. Extremity exam; trace edema lower extremities with improving bilateral lower extremity cellulitis. 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 Results Result Diagram: 03/10/19 0400 03/10/19 0400 Results 24hrs Laboratory Tests Test 03/10/19 04:00 White Blood Count 8.6 Red Blood Count 2.51 L Hemoglobin 7.6 L Hematocrit 25.5 L Mean Corpuscular Volume 101.6 H Mean Corpuscular Hemoglobin 30.3 Mean Corpuscular Hemoglobin Concent 29.8 L Red Cell Distribution Width 13.8 Platelet Count 172 # Mean Platelet Volume 13.6 H Immature Granulocytes % 1.900 H Neutrophils % 76.7 Lymphocytes % 9.0 L Monocytes % 7.9 Eosinophils % 3.8 Basophils % 0.7 Nucleated Red Blood Cells % 0.0 Immature Granulocytes # 0.160 H Neutrophils # 6.6 Lymphocytes # 0.8 Monocytes # 0.7 Eosinophils # 0.3 Basophils # 0.1 Nucleated Red Blood Cells # 0.0 Sodium Level 144 Potassium Level 4.6 Chloride Level 114 H Carbon Dioxide Level 26 Anion Gap 4 L Blood Urea Nitrogen 40 H Creatinine 1.19 H Est Glomerular Filtrat Rate mL/min Glucose Level 123 # Calcium Level 7.3 L Phosphorus Level 3.2 Magnesium Level 2.2 Medications Medication Current Medications Dextrose (D50w Syringe) ONCE PRN IV DECREASED GLUCOSE Last administered on 03/02/19at 19:05; Admin Dose 50 ML; Start 03/02/19 at 14:00 Ondansetron HCl (Zofran Inj) 4 mg Q6H PRN IV NAUSEA AND/OR VOMITING; Start 03/02/19 at 14:00 Acetaminophen (Tylenol Liquid) 650 mg Q6H PRN PO PAIN LEVEL 1-3 OR FEVER Last administered on 03/10/19at 08:41; Admin Dose 650 MG; Start 03/02/19 at 14:00 Morphine Sulfate (morphine) 2 mg Q4H PRN IV PAIN LEVEL 7-10; Start 03/02/19 at 14:00 Clonidine (Catapres) 0.2 mg Q6H PRN PO ELEVATED BLOOD PRESSURE; Start 03/02/19 at 18:00 Hydralazine HCl (Apresoline) 10 mg Q4H PRN IV SBP more than 150 mm hg ; Start 03/02/19 at 23:38 Fentanyl 100 ml @ 2.5 mls/hr TITRATE IV Last administered on 03/04/19at 02:26; Admin Dose 2.5 MLS/HR; Start 03/03/19 at 09:30 Norepinephrine 250 ml @ 1.875 mls/ hr TITRATE IV Last administered on 03/03/19at 14:15; Admin Dose 3.75 MLS/HR; Start 03/03/19 at 14:00 IV Flush (NS 10 ml) 10 ml Q8 PRN IV IV PROTOCOL; Start 03/03/19 at 15:30 Miscellaneous Information 1 ea NOTE XX ; Start 03/03/19 at 15:30 Glucose (Glutose) 15 gm Q15M PRN PO DECREASED GLUCOSE; Start 03/03/19 at 15:30 Glucose (Glutose) 22.5 gm Q15M PRN PO DECREASED GLUCOSE; Start 03/03/19 at 15:30 Dextrose (D50w Syringe) 25 ml Q15M PRN IV DECREASED GLUCOSE; Start 03/03/19 at 15:30 Dextrose (D50w Syringe) 50 ml Q15M PRN IV DECREASED GLUCOSE; Start 03/03/19 at 15:30 Glucagon (Glucagen) 1 mg Q15M PRN IM DECREASED GLUCOSE; Start 03/03/19 at 15:30 Glucose (Glutose) 15 gm Q15M PRN BUCCAL DECREASED GLUCOSE; Start 03/03/19 at 15:30 Vancomycin HCl (Vanco Iv Per Pharmacy) VANCOMYCIN PER PHARMACY PER PROTOCOL XX ; Start 03/03/19 at 17:30 Mupirocin (Bactroban) 1 applic BID TOP Last administered on 03/10/19 08:03; Admin Dose 1 APPLIC; Start 03/04/19 at 13:30; Stop 03/14/19 at 13:29 Fluconazole (Diflucan) 100 mg DAILY PO Last administered on 03/10/19 08:04; Admin Dose 100 MG; Start 03/04/19 at 13:00 Citric Acid/ Sodium Citrate (Bicitra) 30 ml BID NGT Last administered on 03/10/19 08:04; Admin Dose 30 ML; Start 03/08/19 at 21:00 Meropenem/Sodium Chloride 50 ml @ 100 mls/hr Q12 IVPB Last administered on 03/10/19 08:04; Admin Dose 100 MLS/HR; Start 03/08/19 at 12:30 Vancomycin HCl 250 ml @ 125 mls/hr Q24H IVPB Last administered on 03/09/19 11:10; Admin Dose 125 MLS/HR; Start 03/09/19 at 11:00 Famotidine (Pepcid) 20 mg DAILY GTB Last administered on 03/10/19 08:04; Admin Dose 20 MG; Start 03/10/19 at 09:00 Sodium Chloride 1,000 ml @ 75 mls/hr [id number] IV Last administered on 03/10/19 08:42; Admin Dose 75 MLS/HR; Start 03/09/19 at 20:00 GABRIEL PRESLEY Mar 10, 2019 09:36
--- NOTE | 2019-03-10 09:53 | PN ---
Date/Time of Note Date/Time of Note DATE: 03/10/19 TIME: 09:52 Assessment/Plan VTE [place]axis [place] [facility] [place] risk: 12 [place] [facility] [place] No SCD contraindicated: other Pharmacological prophylaxis: LMWH Lines/Catheters IV Catheter Type (from [facility]): PICC Line Central line still needed: Yes Urinary Cath still in place: Yes Reason Cath still needed: skin wounds contaminated by urine Assessment/Plan Hospital Course 1) hyperkalemia - treat - secondary to renal failure - monitor 2) renal failure - appreciate nephrology help - patient may need to be started on hemodialysis 3) altered level of consciousness - probably seconardary to #2 - intubated for airway protection Result Diagram: 03/10/19 0400 03/10/19 0400 Results 24hrs Laboratory Tests Test 03/10/19 04:00 White Blood Count 8.6 Red Blood Count 2.51 L Hemoglobin 7.6 L Hematocrit 25.5 L Mean Corpuscular Volume 101.6 H Mean Corpuscular Hemoglobin 30.3 Mean Corpuscular Hemoglobin Concent 29.8 L Red Cell Distribution Width 13.8 Platelet Count 172 # Mean Platelet Volume 13.6 H Immature Granulocytes % 1.900 H Neutrophils % 76.7 Lymphocytes % 9.0 L Monocytes % 7.9 Eosinophils % 3.8 Basophils % 0.7 Nucleated Red Blood Cells % 0.0 Immature Granulocytes # 0.160 H Neutrophils # 6.6 Lymphocytes # 0.8 Monocytes # 0.7 Eosinophils # 0.3 Basophils # 0.1 Nucleated Red Blood Cells # 0.0 Sodium Level 144 Potassium Level 4.6 Chloride Level 114 H Carbon Dioxide Level 26 Anion Gap 4 L Blood Urea Nitrogen 40 H Creatinine 1.19 H Est Glomerular Filtrat Rate mL/min Glucose Level 123 # Calcium Level 7.3 L Phosphorus Level 3.2 Magnesium Level 2.2 Subjective 24 Hr Interval Summary Free Text/Dictation Patient remain unresponsive despite her kidney functions improving. Family may be deciding to go with comfort care Exam/Review of Systems Exam Vitals Vital Signs Date Temp Pulse Resp B/P (MAP) Pulse Ox O2 O2 Flow FiO2 Time Delivery Rate 03/10/19 63 23 100 30 09:03 03/10/19 101.1 08:41 03/10/19 126/55 Mechanica 06:00 (78) l Ventilato r Intake and Output 03/09/19 03/09/19 03/10/19 1515:00 23:00 07:00 IntakeIntake Total 1470 ml 1245 ml 1305 ml OutputOutput Total 385 ml 510 ml 460 ml BalanceBalance 1085 ml 735 ml 845 ml Constitutional: well developed Head: normocephalic, atraumatic Neck: supple Respiratory: diminished breath sounds Cardiovascular: regular rate and rhythm Gastrointestinal: soft, non-tender Extremities: normal pulses Results Results 24hrs Laboratory Tests Test 03/10/19 04:00 White Blood Count 8.6 Red Blood Count 2.51 L Hemoglobin 7.6 L Hematocrit 25.5 L Mean Corpuscular Volume 101.6 H Mean Corpuscular Hemoglobin 30.3 Mean Corpuscular Hemoglobin Concent 29.8 L Red Cell Distribution Width 13.8 Platelet Count 172 # Mean Platelet Volume 13.6 H Immature Granulocytes % 1.900 H Neutrophils % 76.7 Lymphocytes % 9.0 L Monocytes % 7.9 Eosinophils % 3.8 Basophils % 0.7 Nucleated Red Blood Cells % 0.0 Immature Granulocytes # 0.160 H Neutrophils # 6.6 Lymphocytes # 0.8 Monocytes # 0.7 Eosinophils # 0.3 Basophils # 0.1 Nucleated Red Blood Cells # 0.0 Sodium Level 144 Potassium Level 4.6 Chloride Level 114 H Carbon Dioxide Level 26 Anion Gap 4 L Blood Urea Nitrogen 40 H Creatinine 1.19 H Est Glomerular Filtrat Rate mL/min Glucose Level 123 # Calcium Level 7.3 L Phosphorus Level 3.2 Magnesium Level 2.2 Medications Medication Current Medications Dextrose (D50w Syringe) ONCE PRN IV DECREASED GLUCOSE Last administered on 03/02/19at 19:05; Admin Dose 50 ML; Start 03/02/19 at 14:00 Ondansetron HCl (Zofran Inj) 4 mg Q6H PRN IV NAUSEA AND/OR VOMITING; Start 03/02/19 at 14:00 Acetaminophen (Tylenol Liquid) 650 mg Q6H PRN PO PAIN LEVEL 1-3 OR FEVER Last administered on 03/10/19at 08:41; Admin Dose 650 MG; Start 03/02/19 at 14:00 Morphine Sulfate (morphine) 2 mg Q4H PRN IV PAIN LEVEL 7-10; Start 03/02/19 at 14:00 Clonidine (Catapres) 0.2 mg Q6H PRN PO ELEVATED BLOOD PRESSURE; Start 03/02/19 at 18:00 Hydralazine HCl (Apresoline) 10 mg Q4H PRN IV SBP more than 150 mm hg ; Start 03/02/19 at 23:38 Fentanyl 100 ml @ 2.5 mls/hr TITRATE IV Last administered on 03/04/19at 02:26; Admin Dose 2.5 MLS/HR; Start 03/03/19 at 09:30 Norepinephrine 250 ml @ 1.875 mls/ hr TITRATE IV Last administered on 03/03/19 at 14:15; Admin Dose 3.75 MLS/HR; Start 03/03/19 at 14:00 IV Flush (NS 10 ml) 10 ml Q8 PRN IV IV PROTOCOL; Start 03/03/19 at 15:30 Miscellaneous Information 1 ea NOTE XX ; Start 03/03/19 at 15:30 Glucose (Glutose) 15 gm Q15M PRN PO DECREASED GLUCOSE; Start 03/03/19 at 15:30 Glucose (Glutose) 22.5 gm Q15M PRN PO DECREASED GLUCOSE; Start 03/03/19 at 15:30 Dextrose (D50w Syringe) 25 ml Q15M PRN IV DECREASED GLUCOSE; Start 03/03/19 at 15:30 Dextrose (D50w Syringe) 50 ml Q15M PRN IV DECREASED GLUCOSE; Start 03/03/19 at 15:30 Glucagon (Glucagen) 1 mg Q15M PRN IM DECREASED GLUCOSE; Start 03/03/19 at 15:30 Glucose (Glutose) 15 gm Q15M PRN BUCCAL DECREASED GLUCOSE; Start 03/03/19 at 15:30 Vancomycin HCl (Vanco Iv Per Pharmacy) VANCOMYCIN PER PHARMACY PER PROTOCOL XX ; Start 03/03/19 at 17:30 Mupirocin (Bactroban) 1 applic BID TOP Last administered on 03/10/19at 08:03; Admin Dose 1 APPLIC; Start 03/04/19 at 13:30; Stop 03/14/19 at 13:29 Fluconazole (Diflucan) 100 mg DAILY PO Last administered on 03/10/19at 08:04; Admin Dose 100 MG; Start 03/04/19 at 13:00 Citric Acid/ Sodium Citrate (Bicitra) 30 ml BID NGT Last administered on 03/10/19at 08:04; Admin Dose 30 ML; Start 03/08/19 at 21:00 Meropenem/Sodium Chloride 50 ml @ 100 mls/hr Q12 IVPB Last administered on 03/10/19 08:04; Admin Dose 100 MLS/HR; Start 03/08/19 at 12:30 Vancomycin HCl 250 ml @ 125 mls/hr Q24H IVPB Last administered on 03/09/19at 11:10; Admin Dose 125 MLS/HR; Start 03/09/19 at 11:00 Famotidine (Pepcid) 20 mg DAILY GTB Last administered on 03/10/19 08:04; Admin Dose 20 MG; Start 03/10/19 at 09:00 Sodium Chloride 1,000 ml @ 75 mls/hr [id number] IV Last administered on 03/10/19at 08:42; Admin Dose 75 MLS/HR; Start 03/09/19 at 20:00 VERNON COWART Mar 10, 2019 09:53
[2019-03-10] MEDS: VANCOMYCIN 1 GM 250 ML IVPB SCH (10:02)
--- NOTE | 2019-03-10 12:06 | CONS ---
Assessment/Plan Assessment/Plan Assessment/Plan (Daily) 1. acute hyperkalemia with K 7.3 on admission - now resolved 2. acute kidney injury on CKD III 2/2 ischemic ATN + prerenal azotemia 3. Severe metabolic acidosis 4. septic shock on admission unclear source at this time 5. H/o COPD 6. H/o diastolic Heart failure with Preserved EF 7. H/o Hypothyroidisk 8. H/o Parkinoson's disease 9. h/o HTN 10. acute hypoxic respiratory failure intubated on ventilator Plan: Ventilator care pulmonary , remained intubated, on FiO2 30%, PEEP 5 IV abx Meropenem and PO Fluconazole, Flagyl 500mg PO Q 8 hr < renally dose all abx and monitoe electrolytes BUN/Cr improved to 40/1.19- other electrolytes stable continue IVF 1/2 NS at 75 cc/hr DNR code status will follow up Consultation Date/Type/Reason Admit Date/Time Mar 02, 2019 at 13:39 Initial Consult Date 03/03/19 Type of Consult NEPHROLOGY Requesting Provider: LISA MATA MD Date/Time of Note DATE: 03/10/19 TIME: 12:06 24 HR Interval Summary Free Text/Dictation pt remains intubated on FiO2 30%, PEEP, BP stable Exam/Review of Systems Exam Vitals Vital Signs Date Temp Pulse Resp B/P (MAP) Pulse Ox O2 O2 Flow FiO2 Time Delivery Rate 03/10/19 59 21 99 30 11:08 03/10/19 98.8 09:26 03/10/19 135/53 Mechanical 09:00 (80) Ventilator Intake and Output 03/09/19 03/09/19 03/10/19 1515:00 23:00 07:00 IntakeIntake Total 1470 ml 1245 ml 1420 ml OutputOutput Total 385 ml 510 ml 520 ml BalanceBalance 1085 ml 735 ml 900 ml Results Result Diagram: 03/10/19 0400 03/10/19 0400 Results 24hrs Laboratory Tests Test 03/10/19 04:00 White Blood Count 8.6 Red Blood Count 2.51 L Hemoglobin 7.6 L Hematocrit 25.5 L Mean Corpuscular Volume 101.6 H Mean Corpuscular Hemoglobin 30.3 Mean Corpuscular Hemoglobin Concent 29.8 L Red Cell Distribution Width 13.8 Platelet Count 172 # Mean Platelet Volume 13.6 H Immature Granulocytes % 1.900 H Neutrophils % 76.7 Lymphocytes % 9.0 L Monocytes % 7.9 Eosinophils % 3.8 Basophils % 0.7 Nucleated Red Blood Cells % 0.0 Immature Granulocytes # 0.160 H Neutrophils # 6.6 Lymphocytes # 0.8 Monocytes # 0.7 Eosinophils # 0.3 Basophils # 0.1 Nucleated Red Blood Cells # 0.0 Sodium Level 144 Potassium Level 4.6 Chloride Level 114 H Carbon Dioxide Level 26 Anion Gap 4 L Blood Urea Nitrogen 40 H Creatinine 1.19 H Est Glomerular Filtrat Rate mL/min Glucose Level 123 # Calcium Level 7.3 L Phosphorus Level 3.2 Magnesium Level 2.2 Medications Medication Current Medications Dextrose (D50w Syringe) ONCE PRN IV DECREASED GLUCOSE Last administered on 03/02/19at 19:05; Admin Dose 50 ML; Start 03/02/19 at 14:00 Ondansetron HCl (Zofran Inj) 4 mg Q6H PRN IV NAUSEA AND/OR VOMITING; Start 03/02/19 at 14:00 Acetaminophen (Tylenol Liquid) 650 mg Q6H PRN PO PAIN LEVEL 1-3 OR FEVER Last administered on 03/10/19at 08:41; Admin Dose 650 MG; Start 03/02/19 at 14:00 Morphine Sulfate (morphine) 2 mg Q4H PRN IV PAIN LEVEL 7-10; Start 03/02/19 at 14:00 Clonidine (Catapres) 0.2 mg Q6H PRN PO ELEVATED BLOOD PRESSURE; Start 03/02/19 at 18:00 Hydralazine HCl (Apresoline) 10 mg Q4H PRN IV SBP more than 150 mm hg ; Start 03/02/19 at 23:38 Fentanyl 100 ml @ 2.5 mls/hr TITRATE IV Last administered on 03/04/19at 02:26; Admin Dose 2.5 MLS/HR; Start 03/03/19 at 09:30 Norepinephrine 250 ml @ 1.875 mls/ hr TITRATE IV Last administered on 03/03/19at 14:15; Admin Dose 3.75 MLS/HR; Start 03/03/19 at 14:00 IV Flush (NS 10 ml) 10 ml Q8 PRN IV IV PROTOCOL; Start 03/03/19 at 15:30 Miscellaneous Information 1 ea NOTE XX ; Start 03/03/19 at 15:30 Glucose (Glutose) 15 gm Q15M PRN PO DECREASED GLUCOSE; Start 03/03/19 at 15:30 Glucose (Glutose) 22.5 gm Q15M PRN PO DECREASED GLUCOSE; Start 03/03/19 at 15:30 Dextrose (D50w Syringe) 25 ml Q15M PRN IV DECREASED GLUCOSE; Start 03/03/19 at 15:30 Dextrose (D50w Syringe) 50 ml Q15M PRN IV DECREASED GLUCOSE; Start 03/03/19 at 15:30 Glucagon (Glucagen) 1 mg Q15M PRN IM DECREASED GLUCOSE; Start 03/03/19 at 15:30 Glucose (Glutose) 15 gm Q15M PRN BUCCAL DECREASED GLUCOSE; Start 03/03/19 at 15:30 Vancomycin HCl (Vanco Iv Per Pharmacy) VANCOMYCIN PER PHARMACY PER PROTOCOL XX ; Start 03/03/19 at 17:30 Mupirocin (Bactroban) 1 applic BID TOP Last administered on 03/10/19at 08:03; Admin Dose 1 APPLIC; Start 03/04/19 at 13:30; Stop 03/14/19 at 13:29 Fluconazole (Diflucan) 100 mg DAILY PO Last administered on 03/10/19 08:04; Admin Dose 100 MG; Start 03/04/19 at 13:00 Citric Acid/ Sodium Citrate (Bicitra) 30 ml BID NGT Last administered on 03/10/19at 08:04; Admin Dose 30 ML; Start 03/08/19 at 21:00 Meropenem/Sodium Chloride 50 ml @ 100 mls/hr Q12 IVPB Last administered on 03/10/19at 08:04; Admin Dose 100 MLS/HR; Start 03/08/19 at 12:30 Vancomycin HCl 250 ml @ 125 mls/hr Q24H IVPB Last administered on 03/10/19at 10:02; Admin Dose 125 MLS/HR; Start 03/09/19 at 11:00 Famotidine (Pepcid) 20 mg DAILY GTB Last administered on 03/10/19at 08:04; Admin Dose 20 MG; Start 03/10/19 at 09:00 Sodium Chloride 1,000 ml @ 75 mls/hr [id number] IV Last administered on 8/7/19at 08:42; Admin Dose 75 MLS/HR; Start 03/09/19 at 20:00 ENRIQUETA HUNG MD Mar 10, 2019 12:06
--- NOTE | 2019-03-10 14:33 | CONS ---
Assessment/Plan Assessment/Plan Hospital Course (Demo Recall) No acute changes patient looks comfortable, T-max this morning 101.1. WBC 8.6 platelets 172 neutrophils 76.7 BUN 40 creatinine 1.19 Microbiology: Endotracheal aspirate grew MRSA urine culture grew Klebsiella Ela albicans Antimicrobials: Vancomycin Merrem, Fluconazole INDWELLINGS: Endotracheal tube, NG tube, Cabrera catheter, PICC line. DIAGNOSTICS: Renal ultrasound revealed no evidence of hydronephrosis. A chest x-ray revealed atelectatic changes with superimposed infectious/inflammatory process in the right lung. Gallbladder ultrasound on admission revealed dilated pancreatic duct measuring up to 4 mm, mass in the region of pancreatic head cannot be excluded. Recommendation of CT with contrast or MRCP, no evidence of gallstones. ALLERGIES: NONE. PHYSICAL EXAMINATION: GENERAL: This is a chronically ill-appearing, obese elderly woman who is in no distress. Head atraumatic, normocephalic. NECK: Obese. CHEST: Rise symmetrical. Breath sounds diminished to bases. HEART: S1, S2. ABDOMEN: Obese, soft, bowel tones present. EXTREMITIES: Bilateral lower extremities edema, erythema, dsg intact. ASSESSMENT: 1. Severe sepsis with shock==> off pressors. 2. Urinary tract infection. 3. Acute hypoxemic respiratory failure, poss aspiration. 4. Acute possibly on chronic kidney disease. 5. Congestive heart failure. 6. Morbid obesity. 7. MRSA nares colonization. 8. Acute encephalopathy 9. Diarrhea, rule out C. difficile PLAN: Clinically unchanged, continue present care and antibiotics, send stool for C. difficile and add empiric Flagyl Consultation Date/Type/Reason Admit Date/Time Mar 02, 2019 at 13:39 Initial Consult Date 03/03/19 Type of Consult id Requesting Provider: LISA MATA MD Date/Time of Note DATE: 03/10/19 TIME: 14:32 Exam/Review of Systems Exam Vitals Vital Signs Date Temp Pulse Resp B/P (MAP) Pulse Ox O2 O2 Flow FiO2 Time Delivery Rate 03/10/19 59 22 117/76 100 Mechanical 14:00 (90) Ventilator 03/10/19 30 12:59 03/10/19 98.9 12:00 Intake and Output 03/09/19 03/09/19 03/10/19 1515:00 23:00 07:00 IntakeIntake Total 1470 ml 1245 ml 1420 ml OutputOutput Total 385 ml 510 ml 520 ml BalanceBalance 1085 ml 735 ml 900 ml Results Result Diagram: 03/10/19 0400 03/10/19 0400 Results 24hrs Laboratory Tests Test 03/10/19 04:00 White Blood Count 8.6 Red Blood Count 2.51 L Hemoglobin 7.6 L Hematocrit 25.5 L Mean Corpuscular Volume 101.6 H Mean Corpuscular Hemoglobin 30.3 Mean Corpuscular Hemoglobin Concent 29.8 L Red Cell Distribution Width 13.8 Platelet Count 172 # Mean Platelet Volume 13.6 H Immature Granulocytes % 1.900 H Neutrophils % 76.7 Lymphocytes % 9.0 L Monocytes % 7.9 Eosinophils % 3.8 Basophils % 0.7 Nucleated Red Blood Cells % 0.0 Immature Granulocytes # 0.160 H Neutrophils # 6.6 Lymphocytes # 0.8 Monocytes # 0.7 Eosinophils # 0.3 Basophils # 0.1 Nucleated Red Blood Cells # 0.0 Sodium Level 144 Potassium Level 4.6 Chloride Level 114 H Carbon Dioxide Level 26 Anion Gap 4 L Blood Urea Nitrogen 40 H Creatinine 1.19 H Est Glomerular Filtrat Rate mL/min Glucose Level 123 # Calcium Level 7.3 L Phosphorus Level 3.2 Magnesium Level 2.2 Medications Medication Current Medications Dextrose (D50w Syringe) ONCE PRN IV DECREASED GLUCOSE Last administered on 03/02/19at 19:05; Admin Dose 50 ML; Start 03/02/19 at 14:00 Ondansetron HCl (Zofran Inj) 4 mg Q6H PRN IV NAUSEA AND/OR VOMITING; Start 03/02/19 at 14:00 Acetaminophen (Tylenol Liquid) 650 mg Q6H PRN PO PAIN LEVEL 1-3 OR FEVER Last administered on 03/10/19at 08:41; Admin Dose 650 MG; Start 03/02/19 at 14:00 Morphine Sulfate (morphine) 2 mg Q4H PRN IV PAIN LEVEL 7-10; Start 03/02/19 at 14:00 Clonidine (Catapres) 0.2 mg Q6H PRN PO ELEVATED BLOOD PRESSURE; Start 03/02/19 at 18:00 Hydralazine HCl (Apresoline) 10 mg Q4H PRN IV SBP more than 150 mm hg ; Start 03/02/19 at 23:38 Fentanyl 100 ml @ 2.5 mls/hr TITRATE IV Last administered on 03/04/19at 02:26; Admin Dose 2.5 MLS/HR; Start 03/03/19 at 09:30 Norepinephrine 250 ml @ 1.875 mls/ hr TITRATE IV Last administered on at 14:15; Admin Dose 3.75 MLS/HR; Start 03/03/19 at 14:00 IV Flush (NS 10 ml) 10 ml Q8 PRN IV IV PROTOCOL; Start 03/03/19 at 15:30 Miscellaneous Information 1 ea NOTE XX ; Start 03/03/19 at 15:30 Glucose (Glutose) 15 gm Q15M PRN PO DECREASED GLUCOSE; Start 03/03/19 at 15:30 Glucose (Glutose) 22.5 gm Q15M PRN PO DECREASED GLUCOSE; Start 03/03/19 at 15:30 Dextrose (D50w Syringe) 25 ml Q15M PRN IV DECREASED GLUCOSE; Start 03/03/19 at 15:30 Dextrose (D50w Syringe) 50 ml Q15M PRN IV DECREASED GLUCOSE; Start 03/03/19 at 15:30 Glucagon (Glucagen) 1 mg Q15M PRN IM DECREASED GLUCOSE; Start 03/03/19 at 15:30 Glucose (Glutose) 15 gm Q15M PRN BUCCAL DECREASED GLUCOSE; Start 03/03/19 at 15:30 Vancomycin HCl (Vanco Iv Per Pharmacy) VANCOMYCIN PER PHARMACY PER PROTOCOL XX ; Start 03/03/19 at 17:30 Mupirocin (Bactroban) 1 applic BID TOP Last administered on 03/10/19at 08:03; Admin Dose 1 APPLIC; Start 03/04/19 at 13:30; Stop 03/14/19 at 13:29 Fluconazole (Diflucan) 100 mg DAILY PO Last administered on 03/10/19at 08:04; Admin Dose 100 MG; Start 03/04/19 at 13:00 Citric Acid/ Sodium Citrate (Bicitra) 30 ml BID NGT Last administered on 03/10/19at 08:04; Admin Dose 30 ML; Start 03/08/19 at 21:00 Meropenem/Sodium Chloride 50 ml @ 100 mls/hr Q12 IVPB Last administered on 03/10/19at 08:04; Admin Dose 100 MLS/HR; Start 03/08/19 at 12:30 Vancomycin HCl 250 ml @ 125 mls/hr Q24H IVPB Last administered on 03/10/19at 10:02; Admin Dose 125 MLS/HR; Start 03/09/19 at 11:00 Famotidine (Pepcid) 20 mg DAILY GTB Last administered on 03/10/19at 08:04; Admin Dose 20 MG; Start 03/10/19 at 09:00 Sodium Chloride 1,000 ml @ 75 mls/hr [id number] IV Last administered on 03/10/19at 08:42; Admin Dose 75 MLS/HR; Start 03/09/19 at 20:00 ANITA VIERA NP Mar 10, 2019 14:32
[2019-03-10] MEDS: SCOPOLAMINE 1.5 MG PATCH TRANSDERM SCH (15:10)
[2019-03-10] MEDS: metroNIDAZOLE 500 MG TAB PO SCH ×2 (15:10→21:13)
[2019-03-11] VITALS (36 sets, daily range): BP systolic 97–128; BP diastolic 33–92; PULSE 62–81; RESP 19–29
[2019-03-11] MEDS: metroNIDAZOLE 500 MG TAB PO SCH ×3 (05:55→22:57)
--- NOTE | 2019-03-11 09:32 | CONS ---
Consult Date/Type/Reason Admit Date/Time Mar 02, 2019 at 13:39 Initial Consult Date 03/03/19 Type of Consult Pulmonary Requesting Provider: LISA MATA MD Date/Time of Note DATE: 03/11/19 TIME: 09:29 Subjective Remains altered off sedation. Continues mechanical ventilation with moderate secretions. Currently hemodynamically stable no vasopressor support. Objective Vital Signs Date Temp Pulse Resp B/P (MAP) Pulse Ox O2 O2 Flow FiO2 Time Delivery Rate 03/11/19 66 22 101/51 100 Mechanical 06:00 (68) Ventilator 03/11/19 30 05:26 03/11/19 99.4 04:00 Intake and Output 03/10/19 03/10/19 03/11/19 1515:00 23:00 07:00 IntakeIntake Total 1545 ml 1195 ml 850 ml OutputOutput Total 450 ml 505 ml 475 ml BalanceBalance 1095 ml 690 ml 375 ml Exam GENERAL: Chronically ill-appearing lady orally intubated on mechanical ventilation VITAL SIGNS: per chart NECK: Supple. No JVD or lymphadenopathy. CARDIAC EXAM: S1, S2. No added sounds or murmurs. CHEST: Diminished air entry bilaterally ABDOMEN: Soft, nontender. No guarding or rebound. Mild distention EXTREMITIES: No cyanosis, clubbing edema +2 NEUROLOGIC: Generalized weakness. Significant contractures Vent Setting Ventilator Support Mode: AC, VC plus Fraction of Inspired Oxygen pe: 30 Positive End Expiratory Pressu: 5.0 Results/Medications Result Diagram: 03/10/19 0400 03/10/19 0400 Medications Current Medications Dextrose (D50w Syringe) ONCE PRN IV DECREASED GLUCOSE Last administered on 03/02/19at 19:05; Admin Dose 50 ML; Start 03/02/19 at 14:00 Ondansetron HCl (Zofran Inj) 4 mg Q6H PRN IV NAUSEA AND/OR VOMITING; Start 03/02/19 at 14:00 Acetaminophen (Tylenol Liquid) 650 mg Q6H PRN PO PAIN LEVEL 1-3 OR FEVER Last administered on 03/10/19at 21:13; Admin Dose 650 MG; Start 03/02/19 at 14:00 Morphine Sulfate (morphine) 2 mg Q4H PRN IV PAIN LEVEL 7-10; Start 03/02/19 at 14:00 Clonidine (Catapres) 0.2 mg Q6H PRN PO ELEVATED BLOOD PRESSURE; Start 03/02/19 at 18:00 Hydralazine HCl (Apresoline) 10 mg Q4H PRN IV SBP more than 150 mm hg ; Start 03/02/19 at 23:38 Fentanyl 100 ml @ 2.5 mls/hr TITRATE IV Last administered on 03/04/19at 02:26; Admin Dose 2.5 MLS/HR; Start 03/03/19 at 09:30 Norepinephrine 250 ml @ 1.875 mls/ hr TITRATE IV Last administered on 03/03/19at 14:15; Admin Dose 3.75 MLS/HR; Start 03/03/19 at 14:00 IV Flush (NS 10 ml) 10 ml Q8 PRN IV IV PROTOCOL; Start 03/03/19 at 15:30 Miscellaneous Information 1 ea NOTE XX ; Start 03/03/19 at 15:30 Glucose (Glutose) 15 gm Q15M PRN PO DECREASED GLUCOSE; Start 03/03/19 at 15:30 Glucose (Glutose) 22.5 gm Q15M PRN PO DECREASED GLUCOSE; Start 03/03/19 at 15:30 Dextrose (D50w Syringe) 25 ml Q15M PRN IV DECREASED GLUCOSE; Start 03/03/19 at 15:30 Dextrose (D50w Syringe) 50 ml Q15M PRN IV DECREASED GLUCOSE; Start 03/03/19 at 15:30 Glucagon (Glucagen) 1 mg Q15M PRN IM DECREASED GLUCOSE; Start 03/03/19 at 15:30 Glucose (Glutose) 15 gm Q15M PRN BUCCAL DECREASED GLUCOSE; Start 03/03/19 at 15:30 Vancomycin HCl (Vanco Iv Per Pharmacy) VANCOMYCIN PER PHARMACY PER PROTOCOL XX ; Start 03/03/19 at 17:30 Mupirocin (Bactroban) 1 applic BID TOP Last administered on 03/10/19at 21:13; Admin Dose 1 APPLIC; Start 03/04/19 at 13:30; Stop 03/14/19 at 13:29 Fluconazole (Diflucan) 100 mg DAILY PO Last administered on 03/10/19at 08:04; Admin Dose 100 MG; Start 03/04/19 at 13:00 Citric Acid/ Sodium Citrate (Bicitra) 30 ml BID NGT Last administered on 03/10/19 21:13; Admin Dose 30 ML; Start 03/08/19 at 21:00 Meropenem/Sodium Chloride 50 ml @ 100 mls/hr Q12 IVPB Last administered on 03/10 21:13; Admin Dose 100 MLS/HR; Start 03/08/19 at 12:30 Vancomycin HCl 250 ml @ 125 mls/hr Q24H IVPB Last administered on 03/10/19 10:02; Admin Dose 125 MLS/HR; Start 03/09/19 at 11:00 Famotidine (Pepcid) 20 mg DAILY GTB Last administered on 03/10/19 08:04; Admin Dose 20 MG; Start 03/10/19 at 09:00 Sodium Chloride 1,000 ml @ 75 mls/hr [id number] IV Last administered on 03/10/19 08:42; Admin Dose 75 MLS/HR; Start 03/09/19 at 20:00 Metronidazole (Flagyl) 500 mg Q8 PO Last administered on 03/11/19 05:55; Admin Dose 500 MG; Start 03/10/19 at 15:00 Scopolamine (Transderm-Scop) 1 patch Q72H TRANSDERM Last administered on 03/10/19 15:10; Admin Dose 1 PATCH; Start 03/10/19 at 15:30 Assessment/Plan Hospital Course (Demo Recall) IMP: 1. Acute Respiratory Failure 2. Sepsis/shock status post septic shock 3. Acute possibly on chronic kidney disease. 4. Congestive heart failure. 5. Anemia 6. Thrombocytopenia 7. History of Parkinson's disease with chronic encephalopathy RECS: 1. Vent support. Currently not stable for weaning trial. 2. Abx per ID 3. Follow cultures 4. Continue tube feeding as tolerated 5. Hydration as tolerated 6. Family conference regarding goals of care Overall prognosis remains extremely poor. Critical care time 40 minutes. DAVID ROWELL MD, [facility] Mar 11, 2019 09:31
[2019-03-11] MEDS: FAMOTIDINE 20 MG TAB GTB SCH (09:44)
[2019-03-11] MEDS: CITRIC ACID/NA CITRATE 30 ML CUP NGT SCH ×2 (09:44→20:07)
[2019-03-11] MEDS: MEROPENEM 500MG/50 ML (PMX) 50 ML IVPB SCH ×2 (09:45→20:07)
[2019-03-11] MEDS: FLUCONAZOLE 100 MG TAB PO SCH (09:45)
[2019-03-11] MEDS: MUPIROCIN 2% 22 GM OINT TOP SCH ×2 (09:45→20:08)
--- NOTE | 2019-03-11 10:58 | CONS ---
Assessment/Plan Assessment/Plan Assessment/Plan (Daily) 1. acute hyperkalemia with K 7.3 on admission - now resolved 2. acute kidney injury on CKD III 2/2 ischemic ATN + prerenal azotemia 3. Severe metabolic acidosis- on Bicitra 4. septic shock s/p Levophed 5. H/o COPD 6. H/o diastolic Heart failure with Preserved EF 7. H/o Hypothyroidisk 8. H/o Parkinoson's disease 9. h/o HTN 10. acute hypoxic respiratory failure intubated on ventilator Plan: Ventilator care pulmonary , remained intubated, on FiO2 30%, PEEP 5 continue Bicitra 30ml PO BID IV abx Meropenem and PO Fluconazole, Flagyl 500mg PO Q 8 hr < renally dose all abx and monitoe electrolytes BUN/Cr improved to 40/1.19- other electrolytes stable- no labs today to review yet continue IVF 1/2 NS at 75 cc/hr DNR code status- Niece wants to hold off on hospice at this time, to give more time for pt to recover will follow up Consultation Date/Type/Reason Admit Date/Time Mar 02, 2019 at 13:39 Initial Consult Date 03/03/19 Type of Consult NEPHROLOGY Requesting Provider: LISA MATA MD Date/Time of Note DATE: 03/11/19 TIME: 10:56 Exam/Review of Systems Exam Vitals Vital Signs Date Temp Pulse Resp B/P (MAP) Pulse Ox O2 O2 Flow FiO2 Time Delivery Rate 03/11/19 75 28 119/49 98 10:00 (72) 03/11/19 99.0 08:00 03/11/19 30 08:00 03/11/19 Mechanical 06:00 Ventilator Intake and Output 03/10/19 03/10/19 03/11/19 1515:00 23:00 07:00 IntakeIntake Total 1545 ml 1195 ml 900 ml OutputOutput Total 450 ml 505 ml 535 ml BalanceBalance 1095 ml 690 ml 365 ml Exam Constitutional: intubated on ventilator, Non verbal Respiratory: congested cough, crackles/rales, diminished breath sounds Cardiovascular: regular rate and rhythm, nl pulses Gastrointestinal: soft, non-tender, other (non distended, BS+) Musculoskeletal: muscle weakness, swelling (1+ edema ) Neurological: sedated on ventilator Lymph: nl lymph nodes Results Result Diagram: 03/10/19 0400 03/10/19 0400 Medications Medication Current Medications Dextrose (D50w Syringe) ONCE PRN IV DECREASED GLUCOSE Last administered on 03/02/19at 19:05; Admin Dose 50 ML; Start 03/02/19 at 14:00 Ondansetron HCl (Zofran Inj) 4 mg Q6H PRN IV NAUSEA AND/OR VOMITING; Start 03/02/19 at 14:00 Acetaminophen (Tylenol Liquid) 650 mg Q6H PRN PO PAIN LEVEL 1-3 OR FEVER Last administered on 03/10/19at 21:13; Admin Dose 650 MG; Start 03/02/19 at 14:00 Morphine Sulfate (morphine) 2 mg Q4H PRN IV PAIN LEVEL 7-10; Start 03/02/19 at 14:00 Clonidine (Catapres) 0.2 mg Q6H PRN PO ELEVATED BLOOD PRESSURE; Start 03/02/19 at 18:00 Hydralazine HCl (Apresoline) 10 mg Q4H PRN IV SBP more than 150 mm hg ; Start 03/02/19 at 23:38 Fentanyl 100 ml @ 2.5 mls/hr TITRATE IV Last administered on 03/04/19at 02:26; Admin Dose 2.5 MLS/HR; Start 03/03/19 at 09:30 Norepinephrine 250 ml @ 1.875 mls/ hr TITRATE IV Last administered on 03/03/19at 14:15; Admin Dose 3.75 MLS/HR; Start 03/03/19 at 14:00 IV Flush (NS 10 ml) 10 ml Q8 PRN IV IV PROTOCOL; Start 03/03/19 at 15:30 Miscellaneous Information 1 ea NOTE XX ; Start 03/03/19 at 15:30 Glucose (Glutose) 15 gm Q15M PRN PO DECREASED GLUCOSE; Start 03/03/19 at 15:30 Glucose (Glutose) 22.5 gm Q15M PRN PO DECREASED GLUCOSE; Start 03/03/19 at 15:30 Dextrose (D50w Syringe) 25 ml Q15M PRN IV DECREASED GLUCOSE; Start 03/03/19 at 15:30 Dextrose (D50w Syringe) 50 ml Q15M PRN IV DECREASED GLUCOSE; Start 03/03/19 at 15:30 Glucagon (Glucagen) 1 mg Q15M PRN IM DECREASED GLUCOSE; Start 03/03/19 at 15:30 Glucose (Glutose) 15 gm Q15M PRN BUCCAL DECREASED GLUCOSE; Start 03/03/19 at 15:30 Vancomycin HCl (Vanco Iv Per Pharmacy) VANCOMYCIN PER PHARMACY PER PROTOCOL XX ; Start 03/03/19 at 17:30 Mupirocin (Bactroban) 1 applic BID TOP Last administered on 03/11/19 09:45; Admin Dose 1 APPLIC; Start 03/04/19 at 13:30; Stop 03/14/19 at 13:29 Fluconazole (Diflucan) 100 mg DAILY PO Last administered on 03/11/19 09:45; Admin Dose 100 MG; Start 03/04/19 at 13:00 Citric Acid/ Sodium Citrate (Bicitra) 30 ml BID NGT Last administered on 03/11/19 09:44; Admin Dose 30 ML; Start 03/08/19 at 21:00 Meropenem/Sodium Chloride 50 ml @ 100 mls/hr Q12 IVPB Last administered on 03/11/19 09:45; Admin Dose 100 MLS/HR; Start 03/08/19 at 12:30 Vancomycin HCl 250 ml @ 125 mls/hr Q24H IVPB Last administered on 03/10/19 10:02; Admin Dose 125 MLS/HR; Start 03/09/19 at 11:00 Famotidine (Pepcid) 20 mg DAILY GTB Last administered on 03/11/19 09:44; Admin Dose 20 MG; Start 03/10/19 at 09:00 Sodium Chloride 1,000 ml @ 75 mls/hr [id number] IV Last administered on 03/10/19 08:42; Admin Dose 75 MLS/HR; Start 03/09/19 at 20:00 Metronidazole (Flagyl) 500 mg Q8 PO Last administered on 03/11/19 05:55; Admin Dose 500 MG; Start 03/10/19 at 15:00 Scopolamine (Transderm-Scop) 1 patch Q72H TRANSDERM Last administered on 03/10/19 15:10; Admin Dose 1 PATCH; Start 03/10/19 at 15:30 ENRIQUETA HUNG MD Mar 11, 2019 10:58
[2019-03-11] MEDS: VANCOMYCIN 1 GM 250 ML IVPB SCH (11:09)
--- NOTE | 2019-03-11 12:58 | CONS ---
Assessment/Plan Assessment/Plan Hospital Course (Demo Recall) No acute changes overnight patient remains intubated in no distress spiked fever last night of 101 T-current 99 WBC yesterday was 8.6, no labs today Antimicrobials: Flagyl IV vancomycin meropenem and fluconazole Microbiology: Endotracheal aspirate grew MRSA urine culture grew Klebsiella Cand maria teresa albicans INDWELLINGS: Endotracheal tube, NG tube, Cabrera catheter, PICC line. DIAGNOSTICS: Renal ultrasound revealed no evidence of hydronephrosis. A chest x-ray revealed atelectatic changes with superimposed infectious/inflammatory process in the right lung. Gallbladder ultrasound on admission revealed dilated pancreatic duct measuring up to 4 mm, mass in the region of pancreatic head cannot be excluded. Recommendation of CT with contrast or MRCP, no evidence of gallstones. ALLERGIES: NONE. PHYSICAL EXAMINATION: GENERAL: This is a chronically ill-appearing, obese elderly woman who is in no distress. Head atraumatic, normocephalic. NECK: Obese. CHEST: Rise symmetrical. Breath sounds diminished to bases. HEART: S1, S2. ABDOMEN: Obese, soft, bowel tones present. EXTREMITIES: Bilateral lower extremities edema, erythema, dsg intact. ASSESSMENT: 1. Severe sepsis s/p shock 2. Bilateral lower extremity cellulitis, acute on chronic 2. Urinary tract infection. 3. Acute hypoxemic respiratory failure, poss aspiration. 4. Acute on chronic kidney disease. 5. Congestive heart failure. 6. Morbid obesity. 7. MRSA nares colonization. 8. Acute encephalopathy 9. Diarrhea, rule out C. difficile 10. DNR PLAN: Clinically unchanged, continue present care and antibiotics, pending stool for C. difficile, vent management per pulmonary Consultation Date/Type/Reason Admit Date/Time Mar 02, 2019 at 13:39 Initial Consult Date 03/03/19 Type of Consult id Requesting Provider: LISA MATA MD Date/Time of Note DATE: 03/11/19 TIME: 12:57 Exam/Review of Systems Exam Vitals Vital Signs Date Temp Pulse Resp B/P (MAP) Pulse Ox O2 O2 Flow FiO2 Time Delivery Rate 03/11/19 77 27 99 30 11:43 03/11/19 119/49 10:00 (72) 03/11/19 99.0 08:00 03/11/19 Mechanical 06:00 Ventilator Intake and Output 03/10/19 03/10/19 03/11/19 1515:00 23:00 07:00 IntakeIntake Total 1545 ml 1195 ml 900 ml OutputOutput Total 450 ml 505 ml 535 ml BalanceBalance 1095 ml 690 ml 365 ml Results Result Diagram: 03/10/19 0400 03/10/19 0400 Medications Medication Current Medications Dextrose (D50w Syringe) ONCE PRN IV DECREASED GLUCOSE Last administered on 03/02/19at 19:05; Admin Dose 50 ML; Start 03/02/19 at 14:00 Ondansetron HCl (Zofran Inj) 4 mg Q6H PRN IV NAUSEA AND/OR VOMITING; Start 03/02/19 at 14:00 Acetaminophen (Tylenol Liquid) 650 mg Q6H PRN PO PAIN LEVEL 1-3 OR FEVER Last administered on 03/10/19at 21:13; Admin Dose 650 MG; Start 03/02/19 at 14:00 Morphine Sulfate (morphine) 2 mg Q4H PRN IV PAIN LEVEL 7-10; Start 03/02/19 at 14:00 Clonidine (Catapres) 0.2 mg Q6H PRN PO ELEVATED BLOOD PRESSURE; Start 03/02/19 at 18:00 Hydralazine HCl (Apresoline) 10 mg Q4H PRN IV SBP more than 150 mm hg ; Start 03/02/19 at 23:38 Fentanyl 100 ml @ 2.5 mls/hr TITRATE IV Last administered on 03/04/19at 02:26; Admin Dose 2.5 MLS/HR; Start 03/03/19 at 09:30 Norepinephrine 250 ml @ 1.875 mls/ hr TITRATE IV Last administered on 03/03/19at 14:15; Admin Dose 3.75 MLS/HR; Start 03/03/19 at 14:00 IV Flush (NS 10 ml) 10 ml Q8 PRN IV IV PROTOCOL; Start 03/03/19 at 15:30 Miscellaneous Information 1 ea NOTE XX ; Start 03/03/19 at 15:30 Glucose (Glutose) 15 gm Q15M PRN PO DECREASED GLUCOSE; Start 03/03/19 at 15:30 Glucose (Glutose) 22.5 gm Q15M PRN PO DECREASED GLUCOSE; Start 03/03/19 at 15:30 Dextrose (D50w Syringe) 25 ml Q15M PRN IV DECREASED GLUCOSE; Start 03/03/19 at 15:30 Dextrose (D50w Syringe) 50 ml Q15M PRN IV DECREASED GLUCOSE; Start 03/03/19 at 15:30 Glucagon (Glucagen) 1 mg Q15M PRN IM DECREASED GLUCOSE; Start 03/03/19 at 15:30 Glucose (Glutose) 15 gm Q15M PRN BUCCAL DECREASED GLUCOSE; Start 03/03/19 at 15:30 Vancomycin HCl (Vanco Iv Per Pharmacy) VANCOMYCIN PER PHARMACY PER PROTOCOL XX ; Start 03/03/19 at 17:30 Mupirocin (Bactroban) 1 applic BID TOP Last administered on 03/11/19 09:45; Admin Dose 1 APPLIC; Start 03/04/19 at 13:30; Stop 03/14/19 at 13:29 Fluconazole (Diflucan) 100 mg DAILY PO Last administered on 03/11/19 09:45; Admin Dose 100 MG; Start 03/04/19 at 13:00 Citric Acid/ Sodium Citrate (Bicitra) 30 ml BID NGT Last administered on 9at 09:44; Admin Dose 30 ML; Start 03/08/19 at 21:00 Meropenem/Sodium Chloride 50 ml @ 100 mls/hr Q12 IVPB Last administered on 03/11/19 09:45; Admin Dose 100 MLS/HR; Start 03/08/19 at 12:30 Vancomycin HCl 250 ml @ 125 mls/hr Q24H IVPB Last administered on 03/11/19 11:09; Admin Dose 125 MLS/HR; Start 03/09/19 at 11:00 Famotidine (Pepcid) 20 mg DAILY GTB Last administered on 03/11/19 09:44; Admin Dose 20 MG; Start 03/10/19 at 09:00 Metronidazole (Flagyl) 500 mg Q8 PO Last administered on 03/11/19 05:55; Admin Dose 500 MG; Start 03/10/19 at 15:00 Scopolamine (Transderm-Scop) 1 patch Q72H TRANSDERM Last administered on 03/10/19 15:10; Admin Dose 1 PATCH; Start 03/10/19 at 15:30 ANITA VIERA NP Mar 11, 2019 12:58
--- NOTE | 2019-03-11 13:21 | PN ---
Date/Time of Note Date/Time of Note DATE: 03/11/19 TIME: 13:20 Assessment/Plan VTE Prophylaxis Risk score (from Ns)>0 risk: 12 SCD applied (from [facility]): No SCD contraindicated: other Pharmacological prophylaxis: LMWH Lines/Catheters [facility] Central line still needed: Yes Urinary Cath still in place: Yes Reason Cath still needed: skin wounds contaminated by urine Assessment/Plan Hospital Course 1) hyperkalemia - treat - secondary to renal failure - monitor 2) renal failure - appreciate nephrology help - patient may need to be started on hemodialysis 3) altered level of consciousness - probably seconardary to #2 - intubated for airway protection Result Diagram: 03/10/19 0400 03/10/19 0400 Subjective 24 Hr Interval Summary Free Text/Dictation Patient remain unresponsive, on vent. Exam/Review of Systems Exam Vitals Vital Signs Date Temp Pulse Resp B/P (MAP) Pulse Ox O2 O2 Flow FiO2 Time Delivery Rate 03/11/19 77 27 99 30 11:43 03/11/19 119/49 10:00 (72) 03/11/19 99.0 08:00 03/11/19 Mechanical 06:00 Ventilator Intake and Output 03/10/19 03/10/19 03/11/19 1515:00 23:00 07:00 IntakeIntake Total 1545 ml 1195 ml 900 ml OutputOutput Total 450 ml 505 ml 535 ml BalanceBalance 1095 ml 690 ml 365 ml Constitutional: well developed Head: normocephalic, atraumatic Neck: supple Respiratory: diminished breath sounds Cardiovascular: regular rate and rhythm Gastrointestinal: soft, non-tender Extremities: normal pulses Medications Medication Current Medications Dextrose (D50w Syringe) ONCE PRN IV DECREASED GLUCOSE Last administered on 03/02/19at 19:05; Admin Dose 50 ML; Start 03/02/19 at 14:00 Ondansetron HCl (Zofran Inj) 4 mg Q6H PRN IV NAUSEA AND/OR VOMITING; Start 03/02/19 at 14:00 Acetaminophen (Tylenol Liquid) 650 mg Q6H PRN PO PAIN LEVEL 1-3 OR FEVER Last administered on 03/10/19at 21:13; Admin Dose 650 MG; Start 03/02/19 at 14:00 Morphine Sulfate (morphine) 2 mg Q4H PRN IV PAIN LEVEL 7-10; Start 03/02/19 at 14:00 Clonidine (Catapres) 0.2 mg Q6H PRN PO ELEVATED BLOOD PRESSURE; Start 03/02/19 at 18:00 Hydralazine HCl (Apresoline) 10 mg Q4H PRN IV SBP more than 150 mm hg ; Start 03/02/19 at 23:38 Fentanyl 100 ml @ 2.5 mls/hr TITRATE IV Last administered on 03/04/19at 02:26; Admin Dose 2.5 MLS/HR; Start 03/03/19 at 09:30 Norepinephrine 250 ml @ 1.875 mls/ hr TITRATE IV Last administered on 03/03/19at 14:15; Admin Dose 3.75 MLS/HR; Start 03/03/19 at 14:00 IV Flush (NS 10 ml) 10 ml Q8 PRN IV IV PROTOCOL; Start 03/03/19 at 15:30 Miscellaneous Information 1 ea NOTE XX ; Start 03/03/19 at 15:30 Glucose (Glutose) 15 gm Q15M PRN PO DECREASED GLUCOSE; Start 03/03/19 at 15:30 Glucose (Glutose) 22.5 gm Q15M PRN PO DECREASED GLUCOSE; Start 03/03/19 at 15:30 Dextrose (D50w Syringe) 25 ml Q15M PRN IV DECREASED GLUCOSE; Start 03/03/19 at 15:30 Dextrose (D50w Syringe) 50 ml Q15M PRN IV DECREASED GLUCOSE; Start 03/03/19 at 15:30 Glucagon (Glucagen) 1 mg Q15M PRN IM DECREASED GLUCOSE; Start 03/03/19 at 15:30 Glucose (Glutose) 15 gm Q15M PRN BUCCAL DECREASED GLUCOSE; Start 03/03/19 at 15:30 Vancomycin HCl (Vanco Iv Per Pharmacy) VANCOMYCIN PER PHARMACY PER PROTOCOL XX ; Start 03/03/19 at 17:30 Mupirocin (Bactroban) 1 applic BID TOP Last administered on 03/11/19at 09:45; Admin Dose 1 APPLIC; Start 03/04/19 at 13:30; Stop 03/14/19 at 13:29 Fluconazole (Diflucan) 100 mg DAILY PO Last administered on 03/11/19at 09:45; Admin Dose 100 MG; Start 03/04/19 at 13:00 Citric Acid/ Sodium Citrate (Bicitra) 30 ml BID NGT Last administered on 03/11/19 09:44; Admin Dose 30 ML; Start 03/08/19 at 21:00 Meropenem/Sodium Chloride 50 ml @ 100 mls/hr Q12 IVPB Last administered on 03/11/19 09:45; Admin Dose 100 MLS/HR; Start 03/08/19 at 12:30 Vancomycin HCl 250 ml @ 125 mls/hr Q24H IVPB Last administered on 03/11/19 11:09; Admin Dose 125 MLS/HR; Start 03/09/19 at 11:00 Famotidine (Pepcid) 20 mg DAILY GTB Last administered on 03/11/19 09:44; Admin Dose 20 MG; Start 03/10/19 at 09:00 Metronidazole (Flagyl) 500 mg Q8 PO Last administered on 03/11/19 05:55; Admin Dose 500 MG; Start 03/10/19 at 15:00 Scopolamine (Transderm-Scop) 1 patch Q72H TRANSDERM Last administered on 03/10/19at 15:10; Admin Dose 1 PATCH; Start 03/10/19 at 15:30 Miscellaneous Information (*Rx Drug Level Order Reminder*) VANCO TROUGH 03/12 @ 1,000 1000 ONCE XX ; Start 03/12/19 at 10:00; Stop 03/12/19 at 10:01 VERNON COWART Mar 11, 2019 13:20
[2019-03-11] MEDS: ACETAMINOPHEN 650MG/20.3ML CUP PO PRN (20:07)
[2019-03-12] VITALS (36 sets, daily range): BP systolic 73–119; BP diastolic 30–64; PULSE 66–81; RESP 17–36
[2019-03-12] MEDS: metroNIDAZOLE 500 MG TAB PO SCH ×3 (05:59→21:29)
[2019-03-12] MEDS: ACETAMINOPHEN 650MG/20.3ML CUP PO PRN ×2 (05:59→20:06)
[2019-03-12] MEDS: FAMOTIDINE 20 MG TAB GTB SCH (09:01)
[2019-03-12] MEDS: CITRIC ACID/NA CITRATE 30 ML CUP NGT SCH ×2 (09:01→20:06)
[2019-03-12] MEDS: FLUCONAZOLE 100 MG TAB PO SCH (09:01)
[2019-03-12] MEDS: MUPIROCIN 2% 22 GM OINT TOP SCH ×2 (09:01→20:06)
[2019-03-12] MEDS: MEROPENEM 500MG/50 ML (PMX) 50 ML IVPB SCH ×2 (09:01→20:06)
--- NOTE | 2019-03-12 09:01 | CONS ---
Consultation Date/Type/Reason Admit Date/Time Mar 02, 2019 at 13:39 Date/Time of Note DATE: 03/12/19 TIME: 09:00 Hx of Present Illness Patient remains in the intensive care unit intubated off sedation still encephalopathic. Other medical problems anemia thrombocytopenia, history of Parkinson's disease, hypothyroidism, congestive heart failure, chronic obstructive pulmonary disease. Family was in agreement for general inpatient consultation on 03/10/2019. Past Medical History Medical History: other (chronic diastolic congestive heart failure, COPD, hyperlipidemia, hypothyroidism, chronic kidney disease, peripheral vascular disease with bilateral lower extremity wounds, Parkinson's disease) Home Meds Reported Medications Diclofenac Sodium* (Voltaren* Gel) 1% -100 Gm Gel, 2 GM TOP BID PRN for PAIN, #1 TUB 03/02/19 Carbidopa/Levodopa (Sinemet 25-100 mg Tablet) 1 Each Tablet, 1 EACH PO TID, TAB 03/02/19 Furosemide* (Furosemide*) 40 Mg Tablet, 60 MG PO DAILY, TAB 03/02/19 Hydrocodone/Acetaminophen (Manor 5-325 Tablet) 1 Each Tablet, 1 EACH PO Q12H PRN for PRN, TAB 03/02/19 Levothyroxine Sodium* (Levothyroxine Sodium*) 150 Mcg Tablet, 150 MCG PO BEFORE BREAKFAST, #30 TAB 03/02/19 Medications Current Medications Dextrose (D50w Syringe) ONCE PRN IV DECREASED GLUCOSE Last administered on 03/02/19at 19:05; Admin Dose 50 ML; Start 03/02/19 at 14:00 Ondansetron HCl (Zofran Inj) 4 mg Q6H PRN IV NAUSEA AND/OR VOMITING; Start 02/03 at 14:00 Acetaminophen (Tylenol Liquid) 650 mg Q6H PRN PO PAIN LEVEL 1-3 OR FEVER Last administered on 03/12/19at 05:59; Admin Dose 650 MG; Start 03/02/19 at 14:00 Morphine Sulfate (morphine) 2 mg Q4H PRN IV PAIN LEVEL 7-10; Start 03/02/19 at 14:00 Clonidine (Catapres) 0.2 mg Q6H PRN PO ELEVATED BLOOD PRESSURE; Start 03/02/19 at 18:00 Hydralazine HCl (Apresoline) 10 mg Q4H PRN IV SBP more than 150 mm hg ; Start 03/02/19 at 23:38 Fentanyl 100 ml @ 2.5 mls/hr TITRATE IV Last administered on 03/04/19at 02:26; Admin Dose 2.5 MLS/HR; Start 03/03/19 at 09:30 Norepinephrine 250 ml @ 1.875 mls/ hr TITRATE IV Last administered on 03/03/19at 14:15; Admin Dose 3.75 MLS/HR; Start 03/03/19 at 14:00 IV Flush (NS 10 ml) 10 ml Q8 PRN IV IV PROTOCOL; Start 03/03/19 at 15:30 Miscellaneous Information 1 ea NOTE XX ; Start 03/03/19 at 15:30 Glucose (Glutose) 15 gm Q15M PRN PO DECREASED GLUCOSE; Start 03/03/19 at 15:30 Glucose (Glutose) 22.5 gm Q15M PRN PO DECREASED GLUCOSE; Start 03/03/19 at 15 :30 Dextrose (D50w Syringe) 25 ml Q15M PRN IV DECREASED GLUCOSE; Start 03/03/19 at 15:30 Dextrose (D50w Syringe) 50 ml Q15M PRN IV DECREASED GLUCOSE; Start 03/03/19 at 15:30 Glucagon (Glucagen) 1 mg Q15M PRN IM DECREASED GLUCOSE; Start 03/03/19 at 15:30 Glucose (Glutose) 15 gm Q15M PRN BUCCAL DECREASED GLUCOSE; Start 03/03/19 at 15:30 Vancomycin HCl (Vanco Iv Per Pharmacy) VANCOMYCIN PER PHARMACY PER PROTOCOL XX ; Start 03/03/19 at 17:30 Mupirocin (Bactroban) 1 applic BID TOP Last administered on 03/11/19at 20:08; Admin Dose 1 APPLIC; Start 03/04/19 at 13:30; Stop 03/14/19 at 13:29 Fluconazole (Diflucan) 100 mg DAILY PO Last administered on 03/11/19at 09:45; Admin Dose 100 MG; Start 03/04/19 at 13:00 Citric Acid/ Sodium Citrate (Bicitra) 30 ml BID NGT Last administered on 03/11/19 20:07; Admin Dose 30 ML; Start 03/08/19 at 21:00 Meropenem/Sodium Chloride 50 ml @ 100 mls/hr Q12 IVPB Last administered on 8/8/19at 20:07; Admin Dose 100 MLS/HR; Start 03/08/19 at 12:30 Vancomycin HCl 250 ml @ 125 mls/hr Q24H IVPB Last administered on 03/11/19at 11:09; Admin Dose 125 MLS/HR; Start 03/09/19 at 11:00 Famotidine (Pepcid) 20 mg DAILY GTB Last administered on 03/11/19at 09:44; Admin Dose 20 MG; Start 03/10/19 at 09:00 Metronidazole (Flagyl) 500 mg Q8 PO Last administered on 03/12/19at 05:59; Admin Dose 500 MG; Start 03/10/19 at 15:00 Scopolamine (Transderm-Scop) 1 patch Q72H TRANSDERM Last administered on 03/10/19at 15:10; Admin Dose 1 PATCH; Start 03/10/19 at 15:30 Miscellaneous Information (*Rx Drug Level Order Reminder*) VANCO TROUGH 03/12 @ 1,000 1000 ONCE XX ; Start 03/12/19 at 10:00; Stop 03/12/19 at 10:01 Allergies: Coded Allergies: No Known Allergy (Unverified , 03/02/19) Past Surgical History Past Surgical Hx: other (Not available ) Social History Alcohol Use: none Smoking Status: Never smoker Drug Use: none Exam/Review of Systems Exam Vitals Vital Signs Date Temp Pulse Resp B/P (MAP) Pulse Ox O2 O2 Flow FiO2 Time Delivery Rate 03/12/19 74 20 99 07:00 03/12/19 99.7 06:44 03/12/19 73/30 (44) Mechanical 06:00 Ventilator 03/12/19 30 05:28 Intake and Output 03/11/19 03/11/19 03/12/19 1515:00 23:00 07:00 IntakeIntake Total 700 ml 950 ml 850 ml OutputOutput Total 380 ml 330 ml 370 ml BalanceBalance 320 ml 620 ml 480 ml Eyes: nl conjunctiva, EOMI, nl lids, nl sclera, PERRL Respiratory: congested cough, crackles/rales Neurological: other (-Unresponsive to verbal or tactile stimulation does no purposeful movement does not groaning grimacing chromone cannot participate in cranial nerve examination.) Results Result Diagram: 03/12/1942603/12/19426 Results 24hrs Laboratory Tests Test 03/12/19 04:27 White Blood Count 9.3 Red Blood Count 2.53 L Hemoglobin 7.6 L Hematocrit 25.5 L Mean Corpuscular Volume 100.8 Mean Corpuscular Hemoglobin 30.0 Mean Corpuscular Hemoglobin Concent 29.8 L Red Cell Distribution Width 13.4 Platelet Count 334 # Mean Platelet Volume 12.6 H Immature Granulocytes % 1.300 H Neutrophils % 78.1 H Lymphocytes % 8.9 L Monocytes % 9.2 Eosinophils % 1.9 Basophils % 0.6 Nucleated Red Blood Cells % 0.0 Immature Granulocytes # 0.120 H Neutrophils # 7.3 Lymphocytes # 0.8 Monocytes # 0.9 Eosinophils # 0.2 Basophils # 0.1 Nucleated Red Blood Cells # 0.0 Sodium Level 141 Potassium Level 4.4 Chloride Level 111 H Carbon Dioxide Level 30 Anion Gap 0 L Blood Urea Nitrogen 32 H Creatinine 1.21 H Est Glomerular Filtrat Rate mL/min Glucose Level 136 Calcium Level 7.6 L Phosphorus Level 3.3 Magnesium Level 2.4 Medications Medication Current Medications Dextrose (D50w Syringe) ONCE PRN IV DECREASED GLUCOSE Last administered on 03/02/19at 19:05; Admin Dose 50 ML; Start 03/02/19 at 14:00 Ondansetron HCl (Zofran Inj) 4 mg Q6H PRN IV NAUSEA AND/OR VOMITING; Start 03/02/19 at 14:00 Acetaminophen (Tylenol Liquid) 650 mg Q6H PRN PO PAIN LEVEL 1-3 OR FEVER Last administered on 03/12/19at 05:59; Admin Dose 650 MG; Start 03/02/19 at 14:00 Morphine Sulfate (morphine) 2 mg Q4H PRN IV PAIN LEVEL 7-10; Start 03/02/19 at 14:00 Clonidine (Catapres) 0.2 mg Q6H PRN PO ELEVATED BLOOD PRESSURE; Start 03/02/19 at 18:00 Hydralazine HCl (Apresoline) 10 mg Q4H PRN IV SBP more than 150 mm hg ; Start 03/02/19 at 23:38 Fentanyl 100 ml @ 2.5 mls/hr TITRATE IV Last administered on 03/04/19at 02:26; Admin Dose 2.5 MLS/HR; Start 03/03/19 at 09:30 Norepinephrine 250 ml @ 1.875 mls/ hr TITRATE IV Last administered on 03/03/19at 14:15; Admin Dose 3.75 MLS/HR; Start 03/03/19 at 14:00 IV Flush (NS 10 ml) 10 ml Q8 PRN IV IV PROTOCOL; Start 03/03/19 at 15:30 Miscellaneous Information 1 ea NOTE XX ; Start 03/03/19 at 15:30 Glucose (Glutose) 15 gm Q15M PRN PO DECREASED GLUCOSE; Start 03/03/19 at 15:30 Glucose (Glutose) 22.5 gm Q15M PRN PO DECREASED GLUCOSE; Start 03/03/19 at 15:30 Dextrose (D50w Syringe) 25 ml Q15M PRN IV DECREASED GLUCOSE; Start 03/03/19 at 15:30 Dextrose (D50w Syringe) 50 ml Q15M PRN IV DECREASED GLUCOSE; Start 03/03/19 at 15:30 Glucagon (Glucagen) 1 mg Q15M PRN IM DECREASED GLUCOSE; Start 03/03/19 at 15:30 Glucose (Glutose) 15 gm Q15M PRN BUCCAL DECREASED GLUCOSE; Start 03/03/19 at 15:30 Vancomycin HCl (Vanco Iv Per Pharmacy) VANCOMYCIN PER PHARMACY PER PROTOCOL XX ; Start 03/03/19 at 17:30 Mupirocin (Bactroban) 1 applic BID TOP Last administered on 03/11/19at 20:08; Admin Dose 1 APPLIC; Start 03/04/19 at 13:30; Stop 03/14/19 at 13:29 Fluconazole (Diflucan) 100 mg DAILY PO Last administered on 03/11/19at 09:45; Admin Dose 100 MG; Start 03/04/19 at 13:00 Citric Acid/ Sodium Citrate (Bicitra) 30 ml BID NGT Last administered on 03/11/19 20:07; Admin Dose 30 ML; Start 03/08/19 at 21:00 Meropenem/Sodium Chloride 50 ml @ 100 mls/hr Q12 IVPB Last administered on 03/11/19at 20:07; Admin Dose 100 MLS/HR; Start 03/08/19 at 12:30 Vancomycin HCl 250 ml @ 125 mls/hr Q24H IVPB Last administered on 03/11/19at 11:09; Admin Dose 125 MLS/HR; Start 03/09/19 at 11:00 Famotidine (Pepcid) 20 mg DAILY GTB Last administered on 03/11/19at 09:44; Admin Dose 20 MG; Start 03/10/19 at 09:00 Metronidazole (Flagyl) 500 mg Q8 PO Last administered on 03/12/19at 05:59; Admin Dose 500 MG; Start 03/10/19 at 15:00 Scopolamine (Transderm-Scop) 1 patch Q72H TRANSDERM Last administered on 03/10/19at 15:10; Admin Dose 1 PATCH; Start 03/10/19 at 15:30 Miscellaneous Information (*Rx Drug Level Order Reminder*) VANCO TROUGH 03/12 @ 1,000 1000 ONCE XX ; Start 03/12/19 at 10:00; Stop 03/12/19 at 10:01 YARON BARNHART Mar 12, 2019 09:01
[2019-03-12] MEDS: morphine 2 MG INJ IV PRN (09:07)
--- NOTE | 2019-03-12 09:57 | CONS ---
Consult Date/Type/Reason Admit Date/Time Mar 02, 2019 at 13:39 Initial Consult Date 03/03/19 Type of Consult Pulmonary Requesting Provider: LISA MATA MD Date/Time of Note DATE: 03/12/19 TIME: 09:56 Subjective Grimaces to painful stimuli but not opening eyes or following commands. Appears uncomfortable status post morphine this morning. Objective Vital Signs Date Temp Pulse Resp B/P (MAP) Pulse Ox O2 O2 Flow FiO2 Time Delivery Rate 03/12/19 74 20 99 07:00 03/12/19 99.7 06:44 03/12/19 73/30 (44) Mechanical 06:00 Ventilator 03/12/19 30 05:28 Intake and Output 03/11/19 03/11/19 03/12/19 1515:00 23:00 07:00 IntakeIntake Total 700 ml 950 ml 850 ml OutputOutput Total 380 ml 330 ml 370 ml BalanceBalance 320 ml 620 ml 480 ml Exam GENERAL: Chronically ill-appearing lady orally intubated on mechanical ventilation VITAL SIGNS: per chart NECK: Supple. No JVD or lymphadenopathy. CARDIAC EXAM: S1, S2. No added sounds or murmurs. CHEST: Diminished air entry bilaterally ABDOMEN: Soft, nontender. No guarding or rebound. Mild distention EXTREMITIES: No cyanosis, clubbing edema +2 NEUROLOGIC: Generalized weakness. Significant contractures Vent Setting Ventilator Support Mode: AC, VC plus Fraction of Inspired Oxygen pe: 30 Positive End Expiratory Pressu: 5.0 Results/Medications Result Diagram: 03/12/19 0427 03/12/19 0427 Results 24 hrs Laboratory Tests Test 03/12/19 04:27 White Blood Count 9.3 Red Blood Count 2.53 L Hemoglobin 7.6 L Hematocrit 25.5 L Mean Corpuscular Volume 100.8 Mean Corpuscular Hemoglobin 30.0 Mean Corpuscular Hemoglobin Concent 29.8 L Red Cell Distribution Width 13.4 Platelet Count 334 # Mean Platelet Volume 12.6 H Immature Granulocytes % 1.300 H Neutrophils % 78.1 H Lymphocytes % 8.9 L Monocytes % 9.2 Eosinophils % 1.9 Basophils % 0.6 Nucleated Red Blood Cells % 0.0 Immature Granulocytes # 0.120 H Neutrophils # 7.3 Lymphocytes # 0.8 Monocytes # 0.9 Eosinophils # 0.2 Basophils # 0.1 Nucleated Red Blood Cells # 0.0 Sodium Level 141 Potassium Level 4.4 Chloride Level 111 H Carbon Dioxide Level 30 Anion Gap 0 L Blood Urea Nitrogen 32 H Creatinine 1.21 H Est Glomerular Filtrat Rate mL/min Glucose Level 136 Calcium Level 7.6 L Phosphorus Level 3.3 Magnesium Level 2.4 Medications Current Medications Dextrose (D50w Syringe) ONCE PRN IV DECREASED GLUCOSE Last administered on 03/02/19at 19:05; Admin Dose 50 ML; Start 03/02/19 at 14:00 Ondansetron HCl (Zofran Inj) 4 mg Q6H PRN IV NAUSEA AND/OR VOMITING; Start 03/02/19 at 14:00 Acetaminophen (Tylenol Liquid) 650 mg Q6H PRN PO PAIN LEVEL 1-3 OR FEVER Last administered on 03/12/19at 05:59; Admin Dose 650 MG; Start 03/02/19 at 14:00 Morphine Sulfate (morphine) 2 mg Q4H PRN IV PAIN LEVEL 7-10 Last administered on 03/12/19at 09:07; Admin Dose 2 MG; Start 03/02/19 at 14:00 Clonidine (Catapres) 0.2 mg Q6H PRN PO ELEVATED BLOOD PRESSURE; Start 03/02/19 at 18:00 Hydralazine HCl (Apresoline) 10 mg Q4H PRN IV SBP more than 150 mm hg ; Start 03/02/19 at 23:38 Fentanyl 100 ml @ 2.5 mls/hr TITRATE IV Last administered on 03/04/19at 02:26; Admin Dose 2.5 MLS/HR; Start 03/03/19 at 09:30 Norepinephrine 250 ml @ 1.875 mls/ hr TITRATE IV Last administered on 03/03/19at 14:15; Admin Dose 3.75 MLS/HR; Start 03/03/19 at 14:00 IV Flush (NS 10 ml) 10 ml Q8 PRN IV IV PROTOCOL; Start 03/03/19 at 15:30 Miscellaneous Information 1 ea NOTE XX ; Start 03/03/19 at 15:30 Glucose (Glutose) 15 gm Q15M PRN PO DECREASED GLUCOSE; Start 03/03/19 at 15:30 Glucose (Glutose) 22.5 gm Q15M PRN PO DECREASED GLUCOSE; Start 03/03/19 at 15:30 Dextrose (D50w Syringe) 25 ml Q15M PRN IV DECREASED GLUCOSE; Start 03/03/19 at 15:30 Dextrose (D50w Syringe) 50 ml Q15M PRN IV DECREASED GLUCOSE; Start 03/03/19 at 15:30 Glucagon (Glucagen) 1 mg Q15M PRN IM DECREASED GLUCOSE; Start 03/03/19 at 15:30 Glucose (Glutose) 15 gm Q15M PRN BUCCAL DECREASED GLUCOSE; Start 03/03/19 at 15:30 Vancomycin HCl (Vanco Iv Per Pharmacy) VANCOMYCIN PER PHARMACY PER PROTOCOL XX ; Start 03/03/19 at 17:30 Mupirocin (Bactroban) 1 applic BID TOP Last administered on 03/12/19 09:01; Admin Dose 1 APPLIC; Start 03/04/19 at 13:30; Stop 03/14/19 at 13:29 Fluconazole (Diflucan) 100 mg DAILY PO Last administered on 03/12/19 09:01; Admin Dose 100 MG; Start 03/04/19 at 13:00 Citric Acid/ Sodium Citrate (Bicitra) 30 ml BID NGT Last administered on 03/12/19 09:01; Admin Dose 30 ML; Start 03/08/19 at 21:00 Meropenem/Sodium Chloride 50 ml @ 100 mls/hr Q12 IVPB Last administered on 03/12/19 09:01; Admin Dose 100 MLS/HR; Start 03/08/19 at 12:30 Vancomycin HCl 250 ml @ 125 mls/hr Q24H IVPB Last administered on 03/11/19 11:09; Admin Dose 125 MLS/HR; Start 03/09/19 at 11:00 Famotidine (Pepcid) 20 mg DAILY GTB Last administered on 03/12/19 09:01; Admin Dose 20 MG; Start 03/10/19 at 09:00 Metronidazole (Flagyl) 500 mg Q8 PO Last administered on 03/12/19 05:59; Admin Dose 500 MG; Start 03/10/19 at 15:00 Scopolamine (Transderm-Scop) 1 patch Q72H TRANSDERM Last administered on 03/10/19at 15:10; Admin Dose 1 PATCH; Start 03/10/19 at 15:30 Miscellaneous Information (*Rx Drug Level Order Reminder*) VANCO TROUGH 03/12 @ 1,000 1000 ONCE XX ; Start 03/12/19 at 10:00; Stop 03/12/19 at 10:01 Assessment/Plan Hospital Course (Demo Recall) IMP: 1. Acute Respiratory Failure 2. Sepsis/shock status post septic shock 3. Acute possibly on chronic kidney disease. 4. Congestive heart failure. 5. Anemia 6. Thrombocytopenia 7. History of Parkinson's disease with chronic encephalopathy RECS: 1. Vent support. Currently not stable for weaning trial. 2. Abx per ID 3. Follow cultures 4. Continue tube feeding as tolerated 5. Hydration as tolerated 6. Long discussion with patient's niece this morning. Tracheostomy and PEG tube are not consistent with patient's quality of life. Will continue attempts at extubation over the weekend and if unsuccessful transition to comfort care on Friday. Overall prognosis remains extremely poor. Critical care time 40 minutes. DAVID ROWELL MD, [facility] Mar 12, 2019 09:57
[2019-03-12] MEDS: VANCOMYCIN 1 GM 250 ML IVPB SCH (12:25)
--- NOTE | 2019-03-12 12:54 | CONS ---
Assessment/Plan Assessment/Plan Assessment/Plan (Daily) 1. acute hyperkalemia with K 7.3 on admission - now resolved 2. acute kidney injury on CKD III 2/2 ischemic ATN + prerenal azotemia 3. Severe metabolic acidosis- on Bicitra 4. septic shock s/p Levophed 5. H/o COPD 6. H/o diastolic Heart failure with Preserved EF 7. H/o Hypothyroidisk 8. H/o Parkinoson's disease 9. h/o HTN 10. acute hypoxic respiratory failure intubated on ventilator Plan: Ventilator care pulmonary , remained intubated, on FiO2 30%, PEEP 5 d/c bicitra, d/c IVF- BUN/Cr improved to 32/1.21- other electrolytes stable IV abx Meropenem ., Vancomycin and PO Fluconazole, Flagyl 500mg PO Q 8 hr < renally dose all abx and monitoe electrolytes DNR code status- Niece wants to hold off on hospice at this time, to give more time for pt to recover will follow up Consultation Date/Type/Reason Admit Date/Time Mar 02, 2019 at 13:39 Initial Consult Date 03/03/19 Type of Consult NEPHROLOGY Requesting Provider: LISA MATA MD Date/Time of Note DATE: 03/12/19 TIME: 12:53 Exam/Review of Systems Exam Vitals Vital Signs Date Temp Pulse Resp B/P (MAP) Pulse Ox O2 O2 Flow FiO2 Time Delivery Rate 03/12/19 68 23 100 30 11:23 03/12/19 99.7 06:44 03/12/19 73/30 (44) Mechanical 06:00 Ventilator Intake and Output 03/11/19 03/11/19 03/12/19 1515:00 23:00 07:00 IntakeIntake Total 700 ml 950 ml 850 ml OutputOutput Total 380 ml 330 ml 370 ml BalanceBalance 320 ml 620 ml 480 ml Exam Constitutional: intubated on ventilator, Non verbal Respiratory: congested cough, crackles/rales, diminished breath sounds Cardiovascular: regular rate and rhythm, nl pulses Gastrointestinal: soft, non-tender, other (non distended, BS+) Musculoskeletal: muscle weakness, swelling (1+ edema ) Neurological: sedated on ventilator Lymph: nl lymph nodes Results Result Diagram: 03/12/19 0427 03/12/19 0427 Results 24hrs Laboratory Tests Test 03/12/19 04:27 03/12/19 10:44 White Blood Count 9.3 Red Blood Count 2.53 L Hemoglobin 7.6 L Hematocrit 25.5 L Mean Corpuscular Volume 100.8 Mean Corpuscular Hemoglobin 30.0 Mean Corpuscular Hemoglobin Concent 29.8 L Red Cell Distribution Width 13.4 Platelet Count 334 # Mean Platelet Volume 12.6 H Immature Granulocytes % 1.300 H Neutrophils % 78.1 H Lymphocytes % 8.9 L Monocytes % 9.2 Eosinophils % 1.9 Basophils % 0.6 Nucleated Red Blood Cells % 0.0 Immature Granulocytes # 0.120 H Neutrophils # 7.3 Lymphocytes # 0.8 Monocytes # 0.9 Eosinophils # 0.2 Basophils # 0.1 Nucleated Red Blood Cells # 0.0 Sodium Level 141 Potassium Level 4.4 Chloride Level 111 H Carbon Dioxide Level 30 Anion Gap 0 L Blood Urea Nitrogen 32 H Creatinine 1.21 H Est Glomerular Filtrat Rate mL/min Glucose Level 136 Calcium Level 7.6 L Phosphorus Level 3.3 Magnesium Level 2.4 Vancomycin Level Trough 16.0 Medications Medication Current Medications Dextrose (D50w Syringe) ONCE PRN IV DECREASED GLUCOSE Last administered on 03/02/19at 19:05; Admin Dose 50 ML; Start 03/02/19 at 14:00 Ondansetron HCl (Zofran Inj) 4 mg Q6H PRN IV NAUSEA AND/OR VOMITING; Start 03/02/19 at 14:00 Acetaminophen (Tylenol Liquid) 650 mg Q6H PRN PO PAIN LEVEL 1-3 OR FEVER Last administered on 03/12/19at 05:59; Admin Dose 650 MG; Start 03/02/19 at 14:00 Morphine Sulfate (morphine) 2 mg Q4H PRN IV PAIN LEVEL 7-10 Last administered on 03/12/19at 09:07; Admin Dose 2 MG; Start 03/02/19 at 14:00 Clonidine (Catapres) 0.2 mg Q6H PRN PO ELEVATED BLOOD PRESSURE; Start 03/02/19 at 18:00 Hydralazine HCl (Apresoline) 10 mg Q4H PRN IV SBP more than 150 mm hg ; Start 03/02/19 at 23:38 Fentanyl 100 ml @ 2.5 mls/hr TITRATE IV Last administered on 03/04/19at 02:26; Admin Dose 2.5 MLS/HR; Start 03/03/19 at 09:30 Norepinephrine 250 ml @ 1.875 mls/ hr TITRATE IV Last administered on 03/03/19at 14:15; Admin Dose 3.75 MLS/HR; Start 03/03/19 at 14:00 IV Flush (NS 10 ml) 10 ml Q8 PRN IV IV PROTOCOL; Start 03/03/19 at 15:30 Miscellaneous Information 1 ea NOTE XX ; Start 03/03/19 at 15:30 Glucose (Glutose) 15 gm Q15M PRN PO DECREASED GLUCOSE; Start 03/03/19 at 15:30 Glucose (Glutose) 22.5 gm Q15M PRN PO DECREASED GLUCOSE; Start 03/03/19 at 15:30 Dextrose (D50w Syringe) 25 ml Q15M PRN IV DECREASED GLUCOSE; Start 03/03/19 at 15:30 Dextrose (D50w Syringe) 50 ml Q15M PRN IV DECREASED GLUCOSE; Start 03/03/19 at 15:30 Glucagon (Glucagen) 1 mg Q15M PRN IM DECREASED GLUCOSE; Start 03/03/19 at 15:30 Glucose (Glutose) 15 gm Q15M PRN BUCCAL DECREASED GLUCOSE; Start 03/03/19 at 15:30 Vancomycin HCl (Vanco Iv Per Pharmacy) VANCOMYCIN PER PHARMACY PER PROTOCOL XX ; Start 03/03/19 at 17:30 Mupirocin (Bactroban) 1 applic BID TOP Last administered on 03/12/19at 09:01; Admin Dose 1 APPLIC; Start 03/04/19 at 13:30; Stop 03/14/19 at 13:29 Fluconazole (Diflucan) 100 mg DAILY PO Last administered on 03/12/19at 09:01; Admin Dose 100 MG; Start 03/04/19 at 13:00 Citric Acid/ Sodium Citrate (Bicitra) 30 ml BID NGT Last administered on 03/12/19at 09:01; Admin Dose 30 ML; Start 03/08/19 at 21:00 Meropenem/Sodium Chloride 50 ml @ 100 mls/hr Q12 IVPB Last administered on 03/12/19at 09:01; Admin Dose 100 MLS/HR; Start 03/08/19 at 12:30 Vancomycin HCl 250 ml @ 125 mls/hr Q24H IVPB Last administered on 03/12/19 12:25; Admin Dose 125 MLS/HR; Start 03/09/19 at 11:00 Famotidine (Pepcid) 20 mg DAILY GTB Last administered on 03/12/19at 09:01; Admin Dose 20 MG; Start 03/10/19 at 09:00 Metronidazole (Flagyl) 500 mg Q8 PO Last administered on 03/12/19at 05:59; Admin Dose 500 MG; Start 03/10/19 at 15:00 Scopolamine (Transderm-Scop) 1 patch Q72H TRANSDERM Last administered on 03/10/19at 15:10; Admin Dose 1 PATCH; Start 03/10/19 at 15:30 ENRIQUETA HUNG MD Mar 12, 2019 12:54
--- NOTE | 2019-03-12 13:39 | CONS ---
Assessment/Plan Assessment/Plan Hospital Course (Demo Recall) No acute changes overnight. Patient is sound CPAP more awake today looks comfortable. T-max yesterday 102 T-current 99.7 WBC 9.3 platelets 334 neutrophils 78.1 BUN 32 creatinine 1.21 Antimicrobials: Flagyl, IV vancomycin, meropenem and fluconazole Microbiology: Endotracheal aspirate grew MRSA urine culture grew Klebsiella Ela albicans INDWELLINGS: Endotracheal tube, NG tube, Cabrera catheter, PICC line. DIAGNOSTICS: Renal ultrasound revealed no evidence of hydronephrosis. A chest x-ray revealed atelectatic changes with superimposed infectious/inflammatory process in the right lung. Gallbladder ultrasound on admission revealed dilated pancreatic duct measuring up to 4 mm, mass in the region of pancreatic head cannot be excluded. Recommendation of CT with contrast or MRCP, no evidence of gallstones. ALLERGIES: NONE. PHYSICAL EXAMINATION: GENERAL: This is a chronically ill-appearing, obese elderly woman who is in no distress. Head atraumatic, normocephalic. NECK: Obese. CHEST: Rise symmetrical. Breath sounds diminished to bases. HEART: S1, S2. ABDOMEN: Obese, soft, bowel tones present. EXTREMITIES: Bilateral lower extremities edema, erythema, dsg intact. ASSESSMENT: 1. Severe sepsis s/p shock 2. Bilateral lower extremity cellulitis, acute on chronic 2. Urinary tract infection. 3. Acute hypoxemic respiratory failure, poss aspiration. 4. Acute on chronic kidney disease. 5. Congestive heart failure. 6. Morbid obesity. 7. MRSA nares colonization. 8. Acute encephalopathy 9. Diarrhea, rule out C. difficile 10. DNR PLAN: Hemodynamically stable, tolerate winnings, continue antibiotics awaiting for C. difficile Consultation Date/Type/Reason Admit Date/Time Mar 02, 2019 at 13:39 Initial Consult Date 03/03/19 Type of Consult id Requesting Provider: LISA MATA MD Date/Time of Note DATE: 03/12/19 TIME: 13:38 Exam/Review of Systems Exam Vitals Vital Signs Date Temp Pulse Resp B/P (MAP) Pulse Ox O2 O2 Flow FiO2 Time Delivery Rate 03/12/19 68 23 100 30 11:23 03/12/19 99.7 06:44 03/12/19 73/30 (44) Mechanical 06:00 Ventilator Intake and Output 03/11/19 03/11/19 03/12/19 1515:00 23:00 07:00 IntakeIntake Total 700 ml 950 ml 850 ml OutputOutput Total 380 ml 330 ml 370 ml BalanceBalance 320 ml 620 ml 480 ml Results Result Diagram: 03/12/19 0427 03/12/19 0427 Results 24hrs Laboratory Tests Test 03/12/19 04:27 03/12/19 10:44 White Blood Count 9.3 Red Blood Count 2.53 L Hemoglobin 7.6 L Hematocrit 25.5 L Mean Corpuscular Volume 100.8 Mean Corpuscular Hemoglobin 30.0 Mean Corpuscular Hemoglobin Concent 29.8 L Red Cell Distribution Width 13.4 Platelet Count 334 # Mean Platelet Volume 12.6 H Immature Granulocytes % 1.300 H Neutrophils % 78.1 H Lymphocytes % 8.9 L Monocytes % 9.2 Eosinophils % 1.9 Basophils % 0.6 Nucleated Red Blood Cells % 0.0 Immature Granulocytes # 0.120 H Neutrophils # 7.3 Lymphocytes # 0.8 Monocytes # 0.9 Eosinophils # 0.2 Basophils # 0.1 Nucleated Red Blood Cells # 0.0 Sodium Level 141 Potassium Level 4.4 Chloride Level 111 H Carbon Dioxide Level 30 Anion Gap 0 L Blood Urea Nitrogen 32 H Creatinine 1.21 H Est Glomerular Filtrat Rate mL/min Glucose Level 136 Calcium Level 7.6 L Phosphorus Level 3.3 Magnesium Level 2.4 Vancomycin Level Trough 16.0 Medications Medication Current Medications Dextrose (D50w Syringe) ONCE PRN IV DECREASED GLUCOSE Last administered on 03/02/19at 19:05; Admin Dose 50 ML; Start 03/02/19 at 14:00 Ondansetron HCl (Zofran Inj) 4 mg Q6H PRN IV NAUSEA AND/OR VOMITING; Start 03/02/19 at 14:00 Acetaminophen (Tylenol Liquid) 650 mg Q6H PRN PO PAIN LEVEL 1-3 OR FEVER Last administered on 03/12/19at 05:59; Admin Dose 650 MG; Start 03/02/19 at 14:00 Morphine Sulfate (morphine) 2 mg Q4H PRN IV PAIN LEVEL 7-10 Last administered on 03/12/19at 09:07; Admin Dose 2 MG; Start 03/02/19 at 14:00 Clonidine (Catapres) 0.2 mg Q6H PRN PO ELEVATED BLOOD PRESSURE; Start 03/02/19 at 18:00 Hydralazine HCl (Apresoline) 10 mg Q4H PRN IV SBP more than 150 mm hg ; Start 03/02/19 at 23:38 Fentanyl 100 ml @ 2.5 mls/hr TITRATE IV Last administered on 03/04/19at 02:26; Admin Dose 2.5 MLS/HR; Start 03/03/19 at 09:30 Norepinephrine 250 ml @ 1.875 mls/ hr TITRATE IV Last administered on 03/03/19at 14:15; Admin Dose 3.75 MLS/HR; Start 03/03/19 at 14:00 IV Flush (NS 10 ml) 10 ml Q8 PRN IV IV PROTOCOL; Start 03/03/19 at 15:30 Miscellaneous Information 1 ea NOTE XX ; Start 03/03/19 at 15:30 Glucose (Glutose) 15 gm Q15M PRN PO DECREASED GLUCOSE; Start 03/03/19 at 15:30 Glucose (Glutose) 22.5 gm Q15M PRN PO DECREASED GLUCOSE; Start 03/03/19 at 15:30 Dextrose (D50w Syringe) 25 ml Q15M PRN IV DECREASED GLUCOSE; Start 03/03/19 at 15:30 Dextrose (D50w Syringe) 50 ml Q15M PRN IV DECREASED GLUCOSE; Start 03/03/19 at 15:30 Glucagon (Glucagen) 1 mg Q15M PRN IM DECREASED GLUCOSE; Start 03/03/19 at 15:30 Glucose (Glutose) 15 gm Q15M PRN BUCCAL DECREASED GLUCOSE; Start 03/03/19 at 15:30 Vancomycin HCl (Vanco Iv Per Pharmacy) VANCOMYCIN PER PHARMACY PER PROTOCOL XX ; Start 03/03/19 at 17:30 Mupirocin (Bactroban) 1 applic BID TOP Last administered on 03/12/19at 09:01; Admin Dose 1 APPLIC; Start 03/04/19 at 13:30; Stop 03/14/19 at 13:29 Fluconazole (Diflucan) 100 mg DAILY PO Last administered on 03/12/19at 09:01; Admin Dose 100 MG; Start 03/04/19 at 13:00 Citric Acid/ Sodium Citrate (Bicitra) 30 ml BID NGT Last administered on 03/12/19at 09:01; Admin Dose 30 ML; Start 03/08/19 at 21:00 Meropenem/Sodium Chloride 50 ml @ 100 mls/hr Q12 IVPB Last administered on 03/12/19 09:01; Admin Dose 100 MLS/HR; Start 03/08/19 at 12:30 Vancomycin HCl 250 ml @ 125 mls/hr Q24H IVPB Last administered on 03/12/19 12:25; Admin Dose 125 MLS/HR; Start 03/09/19 at 11:00 Famotidine (Pepcid) 20 mg DAILY GTB Last administered on 03/12/19at 09:01; Admin Dose 20 MG; Start 03/10/19 at 09:00 Metronidazole (Flagyl) 500 mg Q8 PO Last administered on 03/12/19 05:59; Admin Dose 500 MG; Start 03/10/19 at 15:00 Scopolamine (Transderm-Scop) 1 patch Q72H TRANSDERM Last administered on at 15:10; Admin Dose 1 PATCH; Start 03/10/19 at 15:30 ANITA VIERA NP Mar 12, 2019 13:39
--- NOTE | 2019-03-12 14:20 | PN ---
Date/Time of Note Date/Time of Note DATE: 03/12/19 TIME: 14:20 Assessment/Plan VTE Prophylaxis Risk score (from [facility])>0 risk: 14 SCD applied (from [facility]): No SCD contraindicated: other Pharmacological prophylaxis: LMWH Lines/Catheters IV Catheter Type (from [facility]): PICC Line Central line still needed: Yes Urinary Cath still in place: Yes Reason Cath still needed: skin wounds contaminated by urine Assessment/Plan Hospital Course 1) hyperkalemia - treat - secondary to renal failure - monitor 2) renal failure - appreciate nephrology help - patient may need to be started on hemodialysis 3) altered level of consciousness - probably seconardary to #2 - intubated for airway protection Result Diagram: 03/12/1942603/12/19426 Results 24hrs Laboratory Tests Test 03/12/19 04:27 03/12/19 10:44 White Blood Count 9.3 Red Blood Count 2.53 L Hemoglobin 7.6 L Hematocrit 25.5 L Mean Corpuscular Volume 100.8 Mean Corpuscular Hemoglobin 30.0 Mean Corpuscular Hemoglobin Concent 29.8 L Red Cell Distribution Width 13.4 Platelet Count 334 # Mean Platelet Volume 12.6 H Immature Granulocytes % 1.300 H Neutrophils % 78.1 H Lymphocytes % 8.9 L Monocytes % 9.2 Eosinophils % 1.9 Basophils % 0.6 Nucleated Red Blood Cells % 0.0 Immature Granulocytes # 0.120 H Neutrophils # 7.3 Lymphocytes # 0.8 Monocytes # 0.9 Eosinophils # 0.2 Basophils # 0.1 Nucleated Red Blood Cells # 0.0 Sodium Level 141 Potassium Level 4.4 Chloride Level 111 H Carbon Dioxide Level 30 Anion Gap 0 L Blood Urea Nitrogen 32 H Creatinine 1.21 H Est Glomerular Filtrat Rate mL/min Glucose Level 136 Calcium Level 7.6 L Phosphorus Level 3.3 Magnesium Level 2.4 Vancomycin Level Trough 16.0 Subjective 24 Hr Interval Summary Free Text/Dictation Patient is sedated, blood pressure is low Exam/Review of Systems Exam Vitals Vital Signs Date Temp Pulse Resp B/P (MAP) Pulse Ox O2 O2 Flow FiO2 Time Delivery Rate 03/12/19 68 23 100 30 11:23 03/12/19 99.7 06:44 03/12/19 73/30 (44) Mechanical 06:00 Ventilator Intake and Output 03/11/19 03/11/19 03/12/19 1515:00 23:00 07:00 IntakeIntake Total 700 ml 950 ml 850 ml OutputOutput Total 380 ml 330 ml 370 ml BalanceBalance 320 ml 620 ml 480 ml Constitutional: well developed Head: normocephalic, atraumatic Neck: supple Respiratory: diminished breath sounds Cardiovascular: regular rate and rhythm Gastrointestinal: soft, non-tender Extremities: normal pulses Results Results 24hrs Laboratory Tests Test 03/12/19 04:27 03/12/19 10:44 White Blood Count 9.3 Red Blood Count 2.53 L Hemoglobin 7.6 L Hematocrit 25.5 L Mean Corpuscular Volume 100.8 Mean Corpuscular Hemoglobin 30.0 Mean Corpuscular Hemoglobin Concent 29.8 L Red Cell Distribution Width 13.4 Platelet Count 334 # Mean Platelet Volume 12.6 H Immature Granulocytes % 1.300 H Neutrophils % 78.1 H Lymphocytes % 8.9 L Monocytes % 9.2 Eosinophils % 1.9 Basophils % 0.6 Nucleated Red Blood Cells % 0.0 Immature Granulocytes # 0.120 H Neutrophils # 7.3 Lymphocytes # 0.8 Monocytes # 0.9 Eosinophils # 0.2 Basophils # 0.1 Nucleated Red Blood Cells # 0.0 Sodium Level 141 Potassium Level 4.4 Chloride Level 111 H Carbon Dioxide Level 30 Anion Gap 0 L Blood Urea Nitrogen 32 H Creatinine 1.21 H Est Glomerular Filtrat Rate mL/min Glucose Level 136 Calcium Level 7.6 L Phosphorus Level 3.3 Magnesium Level 2.4 Vancomycin Level Trough 16.0 Medications Medication Current Medications Dextrose (D50w Syringe) ONCE PRN IV DECREASED GLUCOSE Last administered on 03/02/19at 19:05; Admin Dose 50 ML; Start 03/02/19 at 14:00 Ondansetron HCl (Zofran Inj) 4 mg Q6H PRN IV NAUSEA AND/OR VOMITING; Start 03/02/19 at 14:00 Acetaminophen (Tylenol Liquid) 650 mg Q6H PRN PO PAIN LEVEL 1-3 OR FEVER Last administered on 03/12/19at 05:59; Admin Dose 650 MG; Start 03/02/19 at 14:00 Morphine Sulfate (morphine) 2 mg Q4H PRN IV PAIN LEVEL 7-10 Last administered on 03/12/19at 09:07; Admin Dose 2 MG; Start 03/02/19 at 14:00 Clonidine (Catapres) 0.2 mg Q6H PRN PO ELEVATED BLOOD PRESSURE; Start 03/02/19 at 18:00 Hydralazine HCl (Apresoline) 10 mg Q4H PRN IV SBP more than 150 mm hg ; Start 03/02/19 at 23:38 Fentanyl 100 ml @ 2.5 mls/hr TITRATE IV Last administered on 03/04/19at 02:26; Admin Dose 2.5 MLS/HR; Start 03/03/19 at 09:30 Norepinephrine 250 ml @ 1.875 mls/ hr TITRATE IV Last administered on 03/03/19at 14:15; Admin Dose 3.75 MLS/HR; Start 03/03/19 at 14:00 IV Flush (NS 10 ml) 10 ml Q8 PRN IV IV PROTOCOL; Start 03/03/19 at 15:30 Miscellaneous Information 1 ea NOTE XX ; Start 03/03/19 at 15:30 Glucose (Glutose) 15 gm Q15M PRN PO DECREASED GLUCOSE; Start 03/03/19 at 15:30 Glucose (Glutose) 22.5 gm Q15M PRN PO DECREASED GLUCOSE; Start 03/03/19 at 15:30 Dextrose (D50w Syringe) 25 ml Q15M PRN IV DECREASED GLUCOSE; Start 03/03/19 at 15:30 Dextrose (D50w Syringe) 50 ml Q15M PRN IV DECREASED GLUCOSE; Start 03/03/19 at 15:30 Glucagon (Glucagen) 1 mg Q15M PRN IM DECREASED GLUCOSE; Start 03/03/19 at 15:30 Glucose (Glutose) 15 gm Q15M PRN BUCCAL DECREASED GLUCOSE; Start 03/03/19 at 15:30 Vancomycin HCl (Vanco Iv Per Pharmacy) VANCOMYCIN PER PHARMACY PER PROTOCOL XX ; Start 03/03/19 at 17:30 Mupirocin (Bactroban) 1 applic BID TOP Last administered on 03/12/19at 09:01; Admin Dose 1 APPLIC; Start 03/04/19 at 13:30; Stop 03/14/19 at 13:29 Fluconazole (Diflucan) 100 mg DAILY PO Last administered on 03/12/19at 09:01; Admin Dose 100 MG; Start 03/04/19 at 13:00 Citric Acid/ Sodium Citrate (Bicitra) 30 ml BID NGT Last administered on 03/12/19 09:01; Admin Dose 30 ML; Start 03/08/19 at 21:00 Meropenem/Sodium Chloride 50 ml @ 100 mls/hr Q12 IVPB Last administered on 03/12/19 09:01; Admin Dose 100 MLS/HR; Start 03/08/19 at 12:30 Vancomycin HCl 250 ml @ 125 mls/hr Q24H IVPB Last administered on 03/12/19 12:25; Admin Dose 125 MLS/HR; Start 03/09/19 at 11:00 Famotidine (Pepcid) 20 mg DAILY GTB Last administered on 03/12/19 09:01; Admin Dose 20 MG; Start 03/10/19 at 09:00 Metronidazole (Flagyl) 500 mg Q8 PO Last administered on 03/12/19 14:16; Admin Dose 500 MG; Start 03/10/19 at 15:00 Scopolamine (Transderm-Scop) 1 patch Q72H TRANSDERM Last administered on 03/10/19 15:10; Admin Dose 1 PATCH; Start 03/10/19 at 15:30 VERNON COWART Mar 12, 2019 14:20
[2019-03-13] VITALS (35 sets, daily range): BP systolic 85–116; BP diastolic 30–82; PULSE 59–77; RESP 15–30
[2019-03-13] MEDS: metroNIDAZOLE 500 MG TAB PO SCH ×3 (05:37→21:37)
--- NOTE | 2019-03-13 09:32 | CONS ---
Consult Date/Type/Reason Admit Date/Time Mar 02, 2019 at 13:39 Initial Consult Date 03/03/19 Type of Consult Pulmonary Requesting Provider: LISA MATA MD Date/Time of Note DATE: 03/13/19 TIME: 09:31 Subjective Tolerated CPAP trial for majority of the day yesterday. Placed back on AC ventilation for respiratory distress overnight. This morning appears somewhat more alert responds to her name although not following commands. Objective Vital Signs Date Temp Pulse Resp B/P (MAP) Pulse Ox O2 O2 Flow FiO2 Time Delivery Rate 03/13/19 30 08:00 03/13/19 75 29 110/48 96 [place] 06:00 (68) l Ventilato r 03/13/19 101.1 04:00 Intake and Output 03/12/19 03/12/19 03/13/19 1515:00 23:00 07:00 IntakeIntake Total 920 ml 450 ml 850 ml OutputOutput Total 395 ml 375 ml 255 ml BalanceBalance 525 ml 75 ml 595 ml Exam GENERAL: Chronically ill-appearing lady orally intubated on mechanical ventilation VITAL SIGNS: per chart NECK: Supple. No JVD or lymphadenopathy. CARDIAC EXAM: S1, S2. No added sounds or murmurs. CHEST: Diminished air entry bilaterally ABDOMEN: Soft, nontender. No guarding or rebound. Mild distention EXTREMITIES: No cyanosis, clubbing edema +2 NEUROLOGIC: Generalized weakness. Significant contractures Vent Setting Ventilator Support Mode: AC Fraction of Inspired Oxygen pe: 30 Positive End Expiratory Pressu: 5.0 Results/Medications Result Diagram: 03/13/19 0458 03/13/19 0458 Results 24 hrs Laboratory Tests Test 03/12/19 10:44 03/12/19 13:29 03/13/19 04:58 Vancomycin Level Trough 16.0 Blood Gas Specimen Source Blood arterial Arterial Blood Date Drawn 03/12/2019 2:10:54 PM Arterial Blood pH 7.454 H (Temp corrected) Arterial Blood pCO2 36.8 (Temp correct) Arterial Blood pO2 72.5 L (Temp corrected) Arterial Blood HCO3 25.2 Arterial Blood Base Excess 1.6 Jewel Test ACCEPTAB Arterial Blood Gas Right Radial Puncture Site Blood Gas A-a O2 Differential 98.2 H Blood Gas Temperature 37.0 Blood Gas Actual 22 Respiration Rate Blood Gas Modality VENT - CPAP FiO2 30.0 Blood Gas Tidal Volume 446.0 Blood Gas Low PEEP Setting 5.0 Blood Gas Pressure Support 10 Blood Gas Notified Whom CW Blood Gas Notified Time 03/12/2019 2:25:51 PM White Blood Count 8.2 Red Blood Count 2.48 L Hemoglobin 7.6 L Hematocrit 25.1 L Mean Corpuscular Volume 101.2 H Mean Corpuscular Hemoglobin 30.6 Mean Corpuscular 30.3 L Hemoglobin Concent Red Cell Distribution Width 13.4 Platelet Count 389 Mean Platelet Volume 12.2 H Immature Granulocytes % 1.200 H Neutrophils % 73.4 Lymphocytes % 10.8 L Monocytes % 11.8 H Eosinophils % 2.1 Basophils % 0.7 Nucleated Red Blood Cells % 0.0 Immature Granulocytes # 0.100 H Neutrophils # 6.1 Lymphocytes # 0.9 Monocytes # 1.0 H Eosinophils # 0.2 Basophils # 0.1 Nucleated Red Blood Cells # 0.0 Sodium Level 141 Potassium Level 4.4 Chloride Level 110 Carbon Dioxide Level 29 Anion Gap 2 L Blood Urea Nitrogen 32 H Creatinine 1.15 H Est Glomerular Filtrat Rate mL/min Glucose Level 129 Calcium Level 7.6 L Phosphorus Level 3.5 Magnesium Level 2.5 Medications Current Medications Dextrose (D50w Syringe) ONCE PRN IV DECREASED GLUCOSE Last administered on 03/02/19at 19:05; Admin Dose 50 ML; Start 03/02/19 at 14:00 Ondansetron HCl (Zofran Inj) 4 mg Q6H PRN IV NAUSEA AND/OR VOMITING; Start 03/02/19 at 14:00 Acetaminophen (Tylenol Liquid) 650 mg Q6H PRN PO PAIN LEVEL 1-3 OR FEVER Last administered on 03/12/19at 20:06; Admin Dose 650 MG; Start 03/02/19 at 14:00 Morphine Sulfate (morphine) 2 mg Q4H PRN IV PAIN LEVEL 7-10 Last administered on 03/12/19at 09:07; Admin Dose 2 MG; Start 03/02/19 at 14:00 Clonidine (Catapres) 0.2 mg Q6H PRN PO ELEVATED BLOOD PRESSURE; Start 03/02/19 at 18:00 Hydralazine HCl (Apresoline) 10 mg Q4H PRN IV SBP more than 150 mm hg ; Start 03/02/19 at 23:38 Fentanyl 100 ml @ 2.5 mls/hr TITRATE IV Last administered on 03/04/19at 02:26; Admin Dose 2.5 MLS/HR; Start 03/03/19 at 09:30 Norepinephrine 250 ml @ 1.875 mls/ hr TITRATE IV Last administered on at 14:15; Admin Dose 3.75 MLS/HR; Start 03/03/19 at 14:00 IV Flush (NS 10 ml) 10 ml Q8 PRN IV IV PROTOCOL; Start 03/03/19 at 15:30 Miscellaneous Information 1 ea NOTE XX ; Start 03/03/19 at 15:30 Glucose (Glutose) 15 gm Q15M PRN PO DECREASED GLUCOSE; Start 03/03/19 at 15:30 Glucose (Glutose) 22.5 gm Q15M PRN PO DECREASED GLUCOSE; Start 03/03/19 at 15:30 Dextrose (D50w Syringe) 25 ml Q15M PRN IV DECREASED GLUCOSE; Start 03/03/19 at 15:30 Dextrose (D50w Syringe) 50 ml Q15M PRN IV DECREASED GLUCOSE; Start 03/03/19 at 15:30 Glucagon (Glucagen) 1 mg Q15M PRN IM DECREASED GLUCOSE; Start 03/03/19 at 15:30 Glucose (Glutose) 15 gm Q15M PRN BUCCAL DECREASED GLUCOSE; Start 03/03/19 at 15:30 Vancomycin HCl (Vanco Iv Per Pharmacy) VANCOMYCIN PER PHARMACY PER PROTOCOL XX ; Start 03/03/19 at 17:30 Mupirocin (Bactroban) 1 applic BID TOP Last administered on 03/12/19at 20:06; Admin Dose 1 APPLIC; Start 03/04/19 at 13:30; Stop 03/14/19 at 13:29 Fluconazole (Diflucan) 100 mg DAILY PO Last administered on 03/12/19at 09:01; Admin Dose 100 MG; Start 03/04/19 at 13:00 Citric Acid/ Sodium Citrate (Bicitra) 30 ml BID NGT Last administered on 03/12/19at 20:06; Admin Dose 30 ML; Start 03/08/19 at 21:00 Meropenem/Sodium Chloride 50 ml @ 100 mls/hr Q12 IVPB Last administered on 03/12/19at 20:06; Admin Dose 100 MLS/HR; Start 03/08/19 at 12:30 Vancomycin HCl 250 ml @ 125 mls/hr Q24H IVPB Last administered on 03/12/19at 12:25; Admin Dose 125 MLS/HR; Start 03/09/19 at 11:00 Famotidine (Pepcid) 20 mg DAILY GTB Last administered on 03/12/19at 09:01; Admin Dose 20 MG; Start 03/10/19 at 09:00 Metronidazole (Flagyl) 500 mg Q8 PO Last administered on 03/13/19at 05:37; Admin Dose 500 MG; Start 03/10/19 at 15:00 Scopolamine (Transderm-Scop) 1 patch Q72H TRANSDERM Last administered on 03/10/19at 15:10; Admin Dose 1 PATCH; Start 03/10/19 at 15:30 Assessment/Plan Hospital Course (Demo Recall) IMP: 1. Acute Respiratory Failure 2. Sepsis/shock status post septic shock 3. Acute possibly on chronic kidney disease. 4. Congestive heart failure. 5. Anemia 6. Thrombocytopenia 7. History of Parkinson's disease with chronic encephalopathy RECS: 1. Vent support. Weaning and extubation on Friday will hold off on CPAP weaning today. Family declined trach and PEG tube as these are not consistent with patient's wishes. 2. Abx per ID 3. Follow cultures 4. Continue tube feeding as tolerated 5. Hydration as tolerated Overall prognosis remains extremely poor. Would recommend palliative care and hospice eval post extubation. Critical care time 40 minutes. DAVID ROWELL MD, [facility] Mar 13, 2019 09:32
[2019-03-13] MEDS: CITRIC ACID/NA CITRATE 30 ML CUP NGT SCH (09:55)
[2019-03-13] MEDS: FAMOTIDINE 20 MG TAB GTB SCH (09:55)
[2019-03-13] MEDS: FLUCONAZOLE 100 MG TAB PO SCH (09:55)
[2019-03-13] MEDS: MEROPENEM 500MG/50 ML (PMX) 50 ML IVPB SCH ×2 (09:55→21:37)
[2019-03-13] MEDS: MUPIROCIN 2% 22 GM OINT TOP SCH ×2 (09:56→21:37)
[2019-03-13] MEDS: ACETAMINOPHEN 650MG/20.3ML CUP PO PRN (10:41)
[2019-03-13] MEDS: VANCOMYCIN 1 GM 250 ML IVPB SCH (10:42)
--- NOTE | 2019-03-13 11:51 | PN ---
Date/Time of Note Date/Time of Note DATE: 03/13/19 TIME: 11:50 Assessment/Plan VTE Prophylaxis Risk [place] [facility] [place] risk: 13 SCD applied (from [facility] [place] No SCD contraindicated: other Pharmacological prophylaxis: LMWH Lines/Catheters IV Catheter Type (from [facility]): Mid Line Urinary Cath still in place: Yes Reason Cath still needed: skin wounds contaminated by urine Assessment/Plan Hospital Course 1) hyperkalemia - treat - secondary to renal failure - monitor 2) renal failure - appreciate nephrology help - patient may need to be started on hemodialysis 3) altered level of consciousness - probably seconardary to #2 - intubated for airway protection Result Diagram: 03/13/19 0458 03/13/19 0458 Results 24hrs Laboratory Tests Test 03/12/19 13:29 03/13/19 04:58 Blood Gas Specimen Source Blood arterial Arterial Blood Date Drawn 03/12/2019 2:10:54 PM Arterial Blood pH (Temp corrected) 7.454 H Arterial Blood pCO2 (Temp correct) 36.8 Arterial Blood pO2 (Temp corrected) 72.5 L Arterial Blood HCO3 25.2 Arterial Blood Base Excess 1.6 Jewel Test ACCEPTAB Arterial Blood Gas Puncture Site Right Radial Blood Gas A-a O2 Differential 98.2 H Blood Gas Temperature 37.0 Blood Gas Actual Respiration Rate 22 Blood Gas Modality VENT - CPAP FiO2 30.0 Blood Gas Tidal Volume 446.0 Blood Gas Low PEEP Setting 5.0 Blood Gas Pressure Support 10 Blood Gas Notified Whom CW Blood Gas Notified Time 03/12/2019 2:25:51 PM White Blood Count 8.2 Red Blood Count 2.48 L Hemoglobin 7.6 L Hematocrit 25.1 L Mean Corpuscular Volume 101.2 H Mean Corpuscular Hemoglobin 30.6 Mean Corpuscular Hemoglobin Concent 30.3 L Red Cell Distribution Width 13.4 Platelet Count 389 Mean Platelet Volume 12.2 H Immature Granulocytes % 1.200 H Neutrophils % 73.4 Lymphocytes % 10.8 L Monocytes % 11.8 H Eosinophils % 2.1 Basophils % 0.7 Nucleated Red Blood Cells % 0.0 Immature Granulocytes # 0.100 H Neutrophils # 6.1 Lymphocytes # 0.9 Monocytes # 1.0 H Eosinophils # 0.2 Basophils # 0.1 Nucleated Red Blood Cells # 0.0 Sodium Level 141 Potassium Level 4.4 Chloride Level 110 Carbon Dioxide Level 29 Anion Gap 2 L Blood Urea Nitrogen 32 H Creatinine 1.15 H Est Glomerular Filtrat Rate mL/min Glucose Level 129 Calcium Level 7.6 L Phosphorus Level 3.5 Magnesium Level 2.5 Subjective 24 Hr Interval Summary Free Text/Dictation Patient remains unresponsive Exam/Review of Systems Exam Vitals Vital Signs Date Temp Pulse Resp B/P (MAP) Pulse Ox O2 O2 Flow FiO2 Time Delivery Rate 03/13/19 69 24 110/47 11:00 (68) 03/13/19 101.3 10:41 03/13/19 99 [place] 10:00 l Ventilato r 03/13/19 30 09:10 Intake and Output 03/12/19 03/12/19 03/13/19 1515:00 23:00 07:00 IntakeIntake Total 920 ml 450 ml 850 ml OutputOutput Total 395 ml 375 ml 255 ml BalanceBalance 525 ml 75 ml 595 ml Constitutional: well developed Head: normocephalic, atraumatic Neck: supple Respiratory: diminished breath sounds Cardiovascular: regular rate and rhythm Gastrointestinal: soft, non-tender Extremities: normal pulses Results Results 24hrs Laboratory Tests Test 03/12/19 13:29 03/13/19 04:58 Blood Gas Specimen Source Blood arterial Arterial Blood Date Drawn 03/12/2019 2:10:54 PM Arterial Blood pH (Temp corrected) 7.454 H Arterial Blood pCO2 (Temp correct) 36.8 Arterial Blood pO2 (Temp corrected) 72.5 L Arterial Blood HCO3 25.2 Arterial Blood Base Excess 1.6 Jewel Test ACCEPTAB Arterial Blood Gas Puncture Site Right Radial Blood Gas A-a O2 Differential 98.2 H Blood Gas Temperature 37.0 Blood Gas Actual Respiration Rate 22 Blood Gas Modality VENT - CPAP FiO2 30.0 Blood Gas Tidal Volume 446.0 Blood Gas Low PEEP Setting 5.0 Blood Gas Pressure Support 10 Blood Gas Notified Whom CW Blood Gas Notified Time 03/12/2019 2:25:51 PM White Blood Count 8.2 Red Blood Count 2.48 L Hemoglobin 7.6 L Hematocrit 25.1 L Mean Corpuscular Volume 101.2 H Mean Corpuscular Hemoglobin 30.6 Mean Corpuscular Hemoglobin Concent 30.3 L Red Cell Distribution Width 13.4 Platelet Count 389 Mean Platelet Volume 12.2 H Immature Granulocytes % 1.200 H Neutrophils % 73.4 Lymphocytes % 10.8 L Monocytes % 11.8 H Eosinophils % 2.1 Basophils % 0.7 Nucleated Red Blood Cells % 0.0 Immature Granulocytes # 0.100 H Neutrophils # 6.1 Lymphocytes # 0.9 Monocytes # 1.0 H Eosinophils # 0.2 Basophils # 0.1 Nucleated Red Blood Cells # 0.0 Sodium Level 141 Potassium Level 4.4 Chloride Level 110 Carbon Dioxide Level 29 Anion Gap 2 L Blood Urea Nitrogen 32 H Creatinine 1.15 H Est Glomerular Filtrat Rate mL/min Glucose Level 129 Calcium Level 7.6 L Phosphorus Level 3.5 Magnesium Level 2.5 Medications Medication Current Medications Dextrose (D50w Syringe) ONCE PRN IV DECREASED GLUCOSE Last administered on 03/02/19at 19:05; Admin Dose 50 ML; Start 03/02/19 at 14:00 Ondansetron HCl (Zofran Inj) 4 mg Q6H PRN IV NAUSEA AND/OR VOMITING; Start 03/02/19 at 14:00 Acetaminophen (Tylenol Liquid) 650 mg Q6H PRN PO PAIN LEVEL 1-3 OR FEVER Last administered on 03/13/19at 10:41; Admin Dose 650 MG; Start 03/02/19 at 14:00 Morphine Sulfate (morphine) 2 mg Q4H PRN IV PAIN LEVEL 7-10 Last administered on 03/12/19at 09:07; Admin Dose 2 MG; Start 03/02/19 at 14:00 Clonidine (Catapres) 0.2 mg Q6H PRN PO ELEVATED BLOOD PRESSURE; Start 03/02/19 at 18:00 Hydralazine HCl (Apresoline) 10 mg Q4H PRN IV SBP more than 150 mm hg ; Start 03/02/19 at 23:38 Fentanyl 100 ml @ 2.5 mls/hr TITRATE IV Last administered on 03/04/19at 02:26; Admin Dose 2.5 MLS/HR; Start 03/03/19 at 09:30 Norepinephrine 250 ml @ 1.875 mls/ hr TITRATE IV Last administered on 03/03/19at 14:15; Admin Dose 3.75 MLS/HR; Start 03/03/19 at 14:00 IV Flush (NS 10 ml) 10 ml Q8 PRN IV IV PROTOCOL; Start 03/03/19 at 15:30 Miscellaneous Information 1 ea NOTE XX ; Start 03/03/19 at 15:30 Glucose (Glutose) 15 gm Q15M PRN PO DECREASED GLUCOSE; Start 03/03/19 at 15:30 Glucose (Glutose) 22.5 gm Q15M PRN PO DECREASED GLUCOSE; Start 03/03/19 at 15:30 Dextrose (D50w Syringe) 25 ml Q15M PRN IV DECREASED GLUCOSE; Start 03/03/19 at 15:30 Dextrose (D50w Syringe) 50 ml Q15M PRN IV DECREASED GLUCOSE; Start 03/03/19 at 15:30 Glucagon (Glucagen) 1 mg Q15M PRN IM DECREASED GLUCOSE; Start 03/03/19 at 15:30 Glucose (Glutose) 15 gm Q15M PRN BUCCAL DECREASED GLUCOSE; Start 03/03/19 at 15:30 Vancomycin HCl (Vanco Iv Per Pharmacy) VANCOMYCIN PER PHARMACY PER PROTOCOL XX ; Start 03/03/19 at 17:30 Mupirocin (Bactroban) 1 applic BID TOP Last administered on 03/13/19at 09:56; Admin Dose 1 APPLIC; Start 03/04/19 at 13:30; Stop 03/14/19 at 13:29 Fluconazole (Diflucan) 100 mg DAILY PO Last administered on 03/13/19 09:55; Admin Dose 100 MG; Start 03/04/19 at 13:00 Meropenem/Sodium Chloride 50 ml @ 100 mls/hr Q12 IVPB Last administered on 03/13/19at 09:55; Admin Dose 100 MLS/HR; Start 03/08/19 at 12:30 Vancomycin HCl 250 ml @ 125 mls/hr Q24H IVPB Last administered on 03/13/19at 10:42; Admin Dose 125 MLS/HR; Start 03/09/19 at 11:00 Famotidine (Pepcid) 20 mg DAILY GTB Last administered on 03/13/19 09:55; Admin Dose 20 MG; Start 03/10/19 at 09:00 Metronidazole (Flagyl) 500 mg Q8 PO Last administered on 03/13/19 05:37; Admin Dose 500 MG; Start 03/10/19 at 15:00 Scopolamine (Transderm-Scop) 1 patch Q72H TRANSDERM Last administered on 03/10/19at 15:10; Admin Dose 1 PATCH; Start 03/10/19 at 15:30 VERNON COWART Mar 13, 2019 11:51
--- NOTE | 2019-03-13 14:06 | CONS ---
Assessment/Plan Assessment/Plan Hospital Course (Demo Recall) No acute changes. The patient is noncommunicative in no distress and status with ongoing high fevers with a T-max of 101.3 this morning. WBC 8.2 platelets 318 9 neutrophils 73.4 BUN 32 creatinine 1.15 Chest x-ray today revealed no significant change. Antimicrobials: Flagyl, IV vancomycin, meropenem, fluconazole Microbiology: Endotracheal aspirate grew MRSA urine culture grew Klebsiella Ela albicans INDWELLINGS: Endotracheal tube, NG tube, Cabrera catheter, PICC line. DIAGNOSTICS: Renal ultrasound revealed no evidence of hydronephrosis. A chest x-ray revealed atelectatic changes with superimposed infectious/inflammatory process in the right lung. Gallbladder ultrasound on admission revealed dilated pancreatic duct measuring up to 4 mm, mass in the region of pancreatic head cannot be excluded. Recommendation of CT with contrast or MRCP, no evidence of gallstones. ALLERGIES: NONE. PHYSICAL EXAMINATION: GENERAL: This is a chronically ill-appearing, obese elderly woman who is in no distress. Head atraumatic, normocephalic. NECK: Obese. CHEST: Rise symmetrical. Breath sounds diminished to bases. HEART: S1, S2. ABDOMEN: Obese, soft, bowel tones present. EXTREMITIES: Bilateral lower extremities edema, erythema, dsg intact. ASSESSMENT: 1. Severe sepsis s/p shock 2. Ongoing fevers 2. Bilateral lower extremity cellulitis, acute on chronic 2. Urinary tract infection. 3. Acute hypoxemic respiratory failure, poss aspiration. 4. Acute on chronic kidney disease. 5. Congestive heart failure. 6. Morbid obesity. 7. MRSA nares colonization. 8. Acute encephalopathy 9. Diarrhea, rule out C. difficile 10. Dilated pancreatic duct measuring up to 4 mm 11. DNR PLAN: Hemodynamically stable, will repeat blood and urine cultures, consider discontinue PICC line and send tip for culture, continue antibiotics, weaning trials per pulmonary. Consider MRCP Consultation Date/Type/Reason Admit Date/Time Mar 02, 2019 at 13:39 Initial Consult Date 03/03/19 Type of Consult id Requesting Provider: LISA MATA MD Date/Time of Note DATE: 03/13/19 TIME: 14:03 Exam/Review of Systems Exam Vitals Vital Signs Date Temp Pulse Resp B/P (MAP) Pulse Ox O2 O2 Flow FiO2 Time Delivery Rate 03/13/19 99.0 11:35 03/13/19 69 24 110/47 11:00 (68) 03/13/19 99 Mechanical 10:00 Ventilator 03/13/19 30 09:10 Intake and Output 03/12/19 03/12/19 03/13/19 1515:00 23:00 07:00 IntakeIntake Total 920 ml 450 ml 900 ml OutputOutput Total 395 ml 375 ml 285 ml BalanceBalance 525 ml 75 ml 615 ml Results Result Diagram: 03/13/19 0458 03/13/19 0458 Results 24hrs Laboratory Tests Test 03/13/19 04:58 White Blood Count 8.2 Red Blood Count 2.48 L Hemoglobin 7.6 L Hematocrit 25.1 L Mean Corpuscular Volume 101.2 H Mean Corpuscular Hemoglobin 30.6 Mean Corpuscular Hemoglobin Concent 30.3 L Red Cell Distribution Width 13.4 Platelet Count 389 Mean Platelet Volume 12.2 H Immature Granulocytes % 1.200 H Neutrophils % 73.4 Lymphocytes % 10.8 L Monocytes % 11.8 H Eosinophils % 2.1 Basophils % 0.7 Nucleated Red Blood Cells % 0.0 Immature Granulocytes # 0.100 H Neutrophils # 6.1 Lymphocytes # 0.9 Monocytes # 1.0 H Eosinophils # 0.2 Basophils # 0.1 Nucleated Red Blood Cells # 0.0 Sodium Level 141 Potassium Level 4.4 Chloride Level 110 Carbon Dioxide Level 29 Anion Gap 2 L Blood Urea Nitrogen 32 H Creatinine 1.15 H Est Glomerular Filtrat Rate mL/min Glucose Level 129 Calcium Level 7.6 L Phosphorus Level 3.5 Magnesium Level 2.5 Medications Medication Current Medications Dextrose (D50w Syringe) ONCE PRN IV DECREASED GLUCOSE Last administered on 03/02/19at 19:05; Admin Dose 50 ML; Start 03/02/19 at 14:00 Ondansetron HCl (Zofran Inj) 4 mg Q6H PRN IV NAUSEA AND/OR VOMITING; Start 03/02/19 at 14:00 Acetaminophen (Tylenol Liquid) 650 mg Q6H PRN PO PAIN LEVEL 1-3 OR FEVER Last administered on 03/13/19at 10:41; Admin Dose 650 MG; Start 03/02/19 at 14:00 Morphine Sulfate (morphine) 2 mg Q4H PRN IV PAIN LEVEL 7-10 Last administered on 03/12/19at 09:07; Admin Dose 2 MG; Start 03/02/19 at 14:00 Clonidine (Catapres) 0.2 mg Q6H PRN PO ELEVATED BLOOD PRESSURE; Start 03/02/19 at 18:00 Hydralazine HCl (Apresoline) 10 mg Q4H PRN IV SBP more than 150 mm hg ; Start 03/02/19 at 23:38 Fentanyl 100 ml @ 2.5 mls/hr TITRATE IV Last administered on 03/04/19at 02:26; Admin Dose 2.5 MLS/HR; Start 03/03/19 at 09:30 Norepinephrine 250 ml @ 1.875 mls/ hr TITRATE IV Last administered on 03/03/19at 14:15; Admin Dose 3.75 MLS/HR; Start 03/03/19 at 14:00 IV Flush (NS 10 ml) 10 ml Q8 PRN IV IV PROTOCOL; Start 03/03/19 at 15:30 Miscellaneous Information 1 ea NOTE XX ; Start 03/03/19 at 15:30 Glucose (Glutose) 15 gm Q15M PRN PO DECREASED GLUCOSE; Start 03/03/19 at 15:30 Glucose (Glutose) 22.5 gm Q15M PRN PO DECREASED GLUCOSE; Start 03/03/19 at 15:30 Dextrose (D50w Syringe) 25 ml Q15M PRN IV DECREASED GLUCOSE; Start 03/03/19 at 15:30 Dextrose (D50w Syringe) 50 ml Q15M PRN IV DECREASED GLUCOSE; Start 03/03/19 at 15:30 Glucagon (Glucagen) 1 mg Q15M PRN IM DECREASED GLUCOSE; Start 03/03/19 at 15:30 Glucose (Glutose) 15 gm Q15M PRN BUCCAL DECREASED GLUCOSE; Start 03/03/19 at 15:30 Vancomycin HCl (Vanco Iv Per Pharmacy) VANCOMYCIN PER PHARMACY PER PROTOCOL XX ; Start 03/03/19 at 17:30 Mupirocin (Bactroban) 1 applic BID TOP Last administered on 03/13/19at 09:56; Admin Dose 1 APPLIC; Start 03/04/19 at 13:30; Stop 03/14/19 at 13:29 Fluconazole (Diflucan) 100 mg DAILY PO Last administered on 03/13/19at 09:55; Admin Dose 100 MG; Start 03/04/19 at 13:00 Meropenem/Sodium Chloride 50 ml @ 100 mls/hr Q12 IVPB Last administered on 03/13/19at 09:55; Admin Dose 100 MLS/HR; Start 03/08/19 at 12:30 Vancomycin HCl 250 ml @ 125 mls/hr Q24H IVPB Last administered on 03/13/19at 10:42; Admin Dose 125 MLS/HR; Start 03/09/19 at 11:00 Famotidine (Pepcid) 20 mg DAILY GTB Last administered on 03/13/19at 09:55; Admin Dose 20 MG; Start 03/10/19 at 09:00 Metronidazole (Flagyl) 500 mg Q8 PO Last administered on 03/13/19at 05:37; Admin Dose 500 MG; Start 03/10/19 at 15:00 Scopolamine (Transderm-Scop) 1 patch Q72H TRANSDERM Last administered on 03/10/19at 15:10; Admin Dose 1 PATCH; Start 03/10/19 at 15:30 ANITA VIERA NP Mar 13, 2019 14:06
[2019-03-13] MEDS: SCOPOLAMINE 1.5 MG PATCH TRANSDERM SCH (14:39)
--- NOTE | 2019-03-13 14:53 | CONS ---
Assessment/Plan Assessment/Plan Assessment/Plan (Daily) 1. acute hyperkalemia with K 7.3 on admission - now resolved 2. acute kidney injury on CKD III 2/2 ischemic ATN + prerenal azotemia 3. Severe metabolic acidosis- on Bicitra 4. septic shock s/p Levophed 5. H/o COPD 6. H/o diastolic Heart failure with Preserved EF 7. H/o Hypothyroidisk 8. H/o Parkinoson's disease 9. h/o HTN 10. acute hypoxic respiratory failure intubated on ventilator 11. Anemia- Hgb 7.6 Plan: Ventilator care pulmonary , remained intubated, on FiO2 30%, PEEP 5 d/c bicitra, d/c IVF- BUN/Cr improved to 32/1.15- other electrolytes stable UO - 1L/24 hrs IV abx Meropenem ., Vancomycin and PO Fluconazole, Flagyl 500mg PO Q 8 hr < renally dose all abx and monitoe electrolytes DNR code status- Niece wants to hold off on hospice at this time, to give more time for pt to recover Total critical care time spent 30 mins Patient seen in collaboration with Dr Shraddha Cordoba. We will follow up. Consultation Date/Type/Reason Admit Date/Time Mar 02, 2019 at 13:39 Initial Consult Date 03/03/19 Type of Consult NEPHROLOGY Reason for Consultation HYPERKALEMIA Requesting Provider: LISA MATA MD Date/Time of Note DATE: 03/13/19 TIME: 14:52 24 HR Interval Summary Free Text/Dictation Plan for comfort care on Friday No events last night Subjective hx not possible: pt non-verbal, pt critical, pt critical status Constitutional: requiring IVF, requiring O2 Exam/Review of Systems Exam Vitals Vital Signs Date Temp Pulse Resp B/P (MAP) Pulse Ox O2 O2 Flow FiO2 Time Delivery Rate 03/13/19 99.0 11:35 03/13/19 69 24 110/47 11:00 (68) 03/13/19 99 Mechanical 10:00 Ventilator 03/13/19 30 09:10 Intake and Output 03/12/19 03/12/19 03/13/19 1515:00 23:00 07:00 IntakeIntake Total 920 ml 450 ml 900 ml OutputOutput Total 395 ml 375 ml 285 ml BalanceBalance 525 ml 75 ml 615 ml Constitutional: non-verbal, frail Psych: nl mood/affect Head: atraumatic Eyes: nl sclera ENMT: nl external ears & nose Neck: non-tender, other (ET tube intact) Respiratory: crackles/rales, diminished breath sounds Cardiovascular: nl pulses, other (s1s2) Gastrointestinal: soft, other (obese) Musculoskeletal: muscle weakness, range of motion Extremities: edema Neurological: unresponsive Skin: other (edema) Results Result Diagram: 03/13/198 03/13/198 Results 24hrs Laboratory Tests Test 03/13/19 04:58 White Blood Count 8.2 Red Blood Count 2.48 L Hemoglobin 7.6 L Hematocrit 25.1 L Mean Corpuscular Volume 101.2 H Mean Corpuscular Hemoglobin 30.6 Mean Corpuscular Hemoglobin Concent 30.3 L Red Cell Distribution Width 13.4 Platelet Count 389 Mean Platelet Volume 12.2 H Immature Granulocytes % 1.200 H Neutrophils % 73.4 Lymphocytes % 10.8 L Monocytes % 11.8 H Eosinophils % 2.1 Basophils % 0.7 Nucleated Red Blood Cells % 0.0 Immature Granulocytes # 0.100 H Neutrophils # 6.1 Lymphocytes # 0.9 Monocytes # 1.0 H Eosinophils # 0.2 Basophils # 0.1 Nucleated Red Blood Cells # 0.0 Sodium Level 141 Potassium Level 4.4 Chloride Level 110 Carbon Dioxide Level 29 Anion Gap 2 L Blood Urea Nitrogen 32 H Creatinine 1.15 H Est Glomerular Filtrat Rate mL/min Glucose Level 129 Calcium Level 7.6 L Phosphorus Level 3.5 Magnesium Level 2.5 Medications Medication Current Medications Dextrose (D50w Syringe) ONCE PRN IV DECREASED GLUCOSE Last administered on 03/02/19at 19:05; Admin Dose 50 ML; Start 03/02/19 at 14:00 Ondansetron HCl (Zofran Inj) 4 mg Q6H PRN IV NAUSEA AND/OR VOMITING; Start 03/02/19 at 14:00 Acetaminophen (Tylenol Liquid) 650 mg Q6H PRN PO PAIN LEVEL 1-3 OR FEVER Last administered on 03/13/19at 10:41; Admin Dose 650 MG; Start 03/02/19 at 14:00 Morphine Sulfate (morphine) 2 mg Q4H PRN IV PAIN LEVEL 7-10 Last administered on 03/12/19at 09:07; Admin Dose 2 MG; Start 03/02/19 at 14:00 Clonidine (Catapres) 0.2 mg Q6H PRN PO ELEVATED BLOOD PRESSURE; Start 03/02/19 at 18:00 Hydralazine HCl (Apresoline) 10 mg Q4H PRN IV SBP more than 150 mm hg ; Start 03/02/19 at 23:38 Fentanyl 100 ml @ 2.5 mls/hr TITRATE IV Last administered on 03/04/19at 02:26; Admin Dose 2.5 MLS/HR; Start 03/03/19 at 09:30 Norepinephrine 250 ml @ 1.875 mls/ hr TITRATE IV Last administered on 03/03/19at 14:15; Admin Dose 3.75 MLS/HR; Start 03/03/19 at 14:00 IV Flush (NS 10 ml) 10 ml Q8 PRN IV IV PROTOCOL; Start 03/03/19 at 15:30 Miscellaneous Information 1 ea NOTE XX ; Start 03/03/19 at 15:30 Glucose (Glutose) 15 gm Q15M PRN PO DECREASED GLUCOSE; Start 03/03/19 at 15:30 Glucose (Glutose) 22.5 gm Q15M PRN PO DECREASED GLUCOSE; Start 03/03/19 at 15:30 Dextrose (D50w Syringe) 25 ml Q15M PRN IV DECREASED GLUCOSE; Start 03/03/19 at 15:30 Dextrose (D50w Syringe) 50 ml Q15M PRN IV DECREASED GLUCOSE; Start 03/03/19 at 15:30 Glucagon (Glucagen) 1 mg Q15M PRN IM DECREASED GLUCOSE; Start 03/03/19 at 15:30 Glucose (Glutose) 15 gm Q15M PRN BUCCAL DECREASED GLUCOSE; Start 03/03/19 at 15:30 Vancomycin HCl (Vanco Iv Per Pharmacy) VANCOMYCIN PER PHARMACY PER PROTOCOL XX ; Start 03/03/19 at 17:30 Mupirocin (Bactroban) 1 applic BID TOP Last administered on 03/13/19at 09:56; Admin Dose 1 APPLIC; Start 03/04/19 at 13:30; Stop 03/14/19 at 13:29 Fluconazole (Diflucan) 100 mg DAILY PO Last administered on 03/13/19at 09:55; Admin Dose 100 MG; Start 03/04/19 at 13:00 Meropenem/Sodium Chloride 50 ml @ 100 mls/hr Q12 IVPB Last administered on 03/13/19 09:55; Admin Dose 100 MLS/HR; Start 03/08/19 at 12:30 Vancomycin HCl 250 ml @ 125 mls/hr Q24H IVPB Last administered on 03/13/19at 10:42; Admin Dose 125 MLS/HR; Start 03/09/19 at 11:00 Famotidine (Pepcid) 20 mg DAILY GTB Last administered on 03/13/19at 09:55; Admin Dose 20 MG; Start 03/10/19 at 09:00 Metronidazole (Flagyl) 500 mg Q8 PO Last administered on 03/13/19 14:38; Admin Dose 500 MG; Start 03/10/19 at 15:00 Scopolamine (Transderm-Scop) 1 patch Q72H TRANSDERM Last administered on 03/13/19 14:39; Admin Dose 1 PATCH; Start 03/10/19 at 15:30 PANCHO SIGALA Mar 13, 2019 14:53
[2019-03-13] MEDS: FENTAnyl (DRIP) 1000 mcg/100mL 100 ML IV SCH (16:10)
[2019-03-14] VITALS (97 sets, daily range): BP systolic 59–156; BP diastolic 29–119; PULSE 52–79; RESP 14–33
[2019-03-14] MEDS: ACETAMINOPHEN 650MG/20.3ML CUP PO PRN ×2 (02:03→13:29)
[2019-03-14] MEDS: NORepinephrine 8MG/250 ML (PMX 250 ML IV SCH (05:42)
[2019-03-14] MEDS: metroNIDAZOLE 500 MG TAB PO SCH ×2 (05:42→13:29)
[2019-03-14] MEDS: MUPIROCIN 2% 22 GM OINT TOP SCH (09:14)
[2019-03-14] MEDS: FLUCONAZOLE 100 MG TAB PO SCH (09:15)
[2019-03-14] MEDS: FAMOTIDINE 20 MG TAB GTB SCH (09:15)
[2019-03-14] MEDS: MEROPENEM 500MG/50 ML (PMX) 50 ML IVPB SCH ×2 (09:15→21:02)
--- NOTE | 2019-03-14 10:08 | CONS ---
Consult Date/Type/Reason Admit Date/Time Mar 02, 2019 at 13:39 Initial Consult Date 03/03/19 Type of Consult Pulmonary Requesting Provider: LISA MATA MD Date/Time of Note DATE: 03/14/19 TIME: 10:07 Subjective No significant changes. Plan nursing staff patient follows simple commands. Minimal secretions continues mechanical ventilation. Currently on low-dose Levophed in addition to fentanyl. Objective Vital Signs Date Temp Pulse Resp B/P (MAP) Pulse Ox O2 O2 Flow FiO2 Time Delivery Rate 03/14/19 75 18 87/39 (55) 94 [place] 06:00 l Ventilato r 03/14/19 30 05:01 03/14/19 101.8 04:17 Intake and Output 03/13/19 03/13/19 03/14/19 1515:00 23:00 07:00 IntakeIntake Total 950 ml 482.5 ml 385 ml OutputOutput Total 260 ml 220 ml 190 ml BalanceBalance 690 ml 262.5 ml 195 ml Exam GENERAL: Chronically ill-appearing lady orally intubated on mechanical ventilation VITAL SIGNS: per chart NECK: Supple. No JVD or lymphadenopathy. CARDIAC EXAM: S1, S2. No added sounds or murmurs. CHEST: Diminished air entry bilaterally ABDOMEN: Soft, nontender. No guarding or rebound. Mild distention EXTREMITIES: No cyanosis, clubbing edema +2 NEUROLOGIC: Generalized weakness. Significant contractures Vent Setting Ventilator Support Mode: AC, VC plus Fraction of Inspired Oxygen pe: 30 Positive End Expiratory Pressu: 5.0 Results/Medications Result Diagram: 03/14/19 0511 03/13/19 0458 Results 24 hrs Laboratory Tests Test 03/14/19 05:11 White Blood Count 6.4 # Red Blood Count 2.45 L Hemoglobin 7.4 L Hematocrit 25.2 L Mean Corpuscular Volume 102.9 H Mean Corpuscular Hemoglobin 30.2 Mean Corpuscular Hemoglobin Concent 29.4 L Red Cell Distribution Width 13.5 Platelet Count 441 H Mean Platelet Volume 11.8 H Immature Granulocytes % 1.600 H Neutrophils % 65.8 Lymphocytes % 15.4 Monocytes % 14.0 H Eosinophils % 2.4 Basophils % 0.8 Nucleated Red Blood Cells % 0.0 Immature Granulocytes # 0.100 H Neutrophils # 4.2 Lymphocytes # 1.0 Monocytes # 0.9 Eosinophils # 0.2 Basophils # 0.1 Nucleated Red Blood Cells # 0.0 Lactic Acid Level 1.0 Medications Current Medications Dextrose (D50w Syringe) ONCE PRN IV DECREASED GLUCOSE Last administered on 03/02/19at 19:05; Admin Dose 50 ML; Start 03/02/19 at 14:00 Ondansetron HCl (Zofran Inj) 4 mg Q6H PRN IV NAUSEA AND/OR VOMITING; Start 03/02/19 at 14:00 Acetaminophen (Tylenol Liquid) 650 mg Q6H PRN PO PAIN LEVEL 1-3 OR FEVER Last administered on 03/14/19at 02:03; Admin Dose 650 MG; Start 03/02/19 at 14:00 Morphine Sulfate (morphine) 2 mg Q4H PRN IV PAIN LEVEL 7-10 Last administered on 03/12/19at 09:07; Admin Dose 2 MG; Start 03/02/19 at 14:00 Clonidine (Catapres) 0.2 mg Q6H PRN PO ELEVATED BLOOD PRESSURE; Start 03/02/19 at 18:00 Hydralazine HCl (Apresoline) 10 mg Q4H PRN IV SBP more than 150 mm hg ; Start 03/02/19 at 23:38 Fentanyl 100 ml @ 2.5 mls/hr TITRATE IV Last administered on 03/13/19at 16:10; Admin Dose 2.5 MLS/HR; Start 03/03/19 at 09:30 Norepinephrine 250 ml @ 1.875 mls/ hr TITRATE IV Last administered on 03/14/19at 05:42; Admin Dose 1.875 MLS/HR; Start 03/03/19 at 14:00 IV Flush (NS 10 ml) 10 ml Q8 PRN IV IV PROTOCOL; Start 03/03/19 at 15:30 Miscellaneous Information 1 ea NOTE XX ; Start 03/03/19 at 15:30 Glucose (Glutose) 15 gm Q15M PRN PO DECREASED GLUCOSE; Start 03/03/19 at 15:30 Glucose (Glutose) 22.5 gm Q15M PRN PO DECREASED GLUCOSE; Start 03/03/19 at 15:30 Dextrose (D50w Syringe) 25 ml Q15M PRN IV DECREASED GLUCOSE; Start 03/03/19 at 15:30 Dextrose (D50w Syringe) 50 ml Q15M PRN IV DECREASED GLUCOSE; Start 03/03/19 at 15:30 Glucagon (Glucagen) 1 mg Q15M PRN IM DECREASED GLUCOSE; Start 03/03/19 at 15:30 Glucose (Glutose) 15 gm Q15M PRN BUCCAL DECREASED GLUCOSE; Start 03/03/19 at 15:30 Vancomycin HCl (Vanco Iv Per Pharmacy) VANCOMYCIN PER PHARMACY PER PROTOCOL XX ; Start 03/03/19 at 17:30 Mupirocin (Bactroban) 1 applic BID TOP Last administered on 03/14/19at 09:14; Admin Dose 1 APPLIC; Start 03/04/19 at 13:30; Stop 03/14/19 at 13:29 Fluconazole (Diflucan) 100 mg DAILY PO Last administered on 03/14/19at 09:15; Admin Dose 100 MG; Start 03/04/19 at 13:00 Meropenem/Sodium Chloride 50 ml @ 100 mls/hr Q12 IVPB Last administered on 03/14/19at 09:15; Admin Dose 100 MLS/HR; Start 03/08/19 at 12:30 Vancomycin HCl 250 ml @ 125 mls/hr Q24H IVPB Last administered on 03/13/19at 10:42; Admin Dose 125 MLS/HR; Start 03/09/19 at 11:00 Famotidine (Pepcid) 20 mg DAILY GTB Last administered on 03/14/19at 09:15; Admin Dose 20 MG; Start 03/10/19 at 09:00 Metronidazole (Flagyl) 500 mg Q8 PO Last administered on 03/14/19at 05:42; Admin Dose 500 MG; Start 03/10/19 at 15:00 Scopolamine (Transderm-Scop) 1 patch Q72H TRANSDERM Last administered on 03/13/19at 14:39; Admin Dose 1 PATCH; Start 03/10/19 at 15:30 Albumin Human 100 ml @ 100 mls/hr Q8H IV ; Start 03/14/19 at 10:00; Stop 03/04 08/22 at 18:59 Assessment/Plan Hospital Course (Demo Recall) IMP: 1. Acute Respiratory Failure 2. Sepsis/shock status post septic shock 3. Acute possibly on chronic kidney disease. 4. Congestive heart failure. 5. Anemia 6. Thrombocytopenia 7. History of Parkinson's disease with chronic encephalopathy RECS: 1. Vent support. CPAP trial with extubation tomorrow. No reintubation per family's request. If patient declines following extubation will require t ransition to hospice. 2. Abx per ID 3. Follow cultures 4. Continue tube feeding as tolerated 5. Hydration as tolerated Critical care time 40 minutes. DAVID ROWELL MD, [facility] Mar 14, 2019 10:08
[2019-03-14] MEDS: ALBUMIN HUMAN 25% 100 ML IV SCH ×2 (10:39→17:43)
--- NOTE | 2019-03-14 11:20 | PN ---
Date/Time of Note Date/Time of Note DATE: 03/14/19 TIME: 11: Assessment/Plan VTE Prophylaxis Risk score (from [facility] [place])>0 risk: 11 SCD applied (from [facility] [place]): No SCD contraindicated: other Pharmacological prophylaxis: LMWH Lines/Catheters IV Catheter Type (from [facility] Mid Line Urinary Cath still in place: Yes Reason Cath still needed: skin wounds contaminated by urine Assessment/Plan Hospital Course 1) hyperkalemia - treat - secondary to renal failure - monitor 2) renal failure - appreciate nephrology help - patient may need to be started on hemodialysis 3) altered level of consciousness - probably seconardary to #2 - intubated for airway protection Result Diagram: 03/14/19 0511 03/13/19 0458 Results 24hrs Laboratory Tests Test 03/14/19 05:11 White Blood Count 6.4 # Red Blood Count 2.45 L Hemoglobin 7.4 L Hematocrit 25.2 L Mean Corpuscular Volume 102.9 H Mean Corpuscular Hemoglobin 30.2 Mean Corpuscular Hemoglobin Concent 29.4 L Red Cell Distribution Width 13.5 Platelet Count 441 H Mean Platelet Volume 11.8 H Immature Granulocytes % 1.600 H Neutrophils % 65.8 Lymphocytes % 15.4 Monocytes % 14.0 H Eosinophils % 2.4 Basophils % 0.8 Nucleated Red Blood Cells % 0.0 Immature Granulocytes # 0.100 H Neutrophils # 4.2 Lymphocytes # 1.0 Monocytes # 0.9 Eosinophils # 0.2 Basophils # 0.1 Nucleated Red Blood Cells # 0.0 Lactic Acid Level 1.0 Subjective 24 Hr Interval Summary Free Text/Dictation Patient sedated, have improvement with weaning Exam/Review of Systems Exam Vitals Vital Signs Date Temp Pulse Resp B/P (MAP) Pulse Ox O2 O2 Flow FiO2 Time Delivery Rate 03/14/19 66 18 94/41 (58) 99 Mechanical 10:00 Ventilator 03/14/19 30 08:00 03/14/19 99.4 08:00 Intake and Output 03/13/19 03/13/19 03/14/19 1515:00 23:00 07:00 IntakeIntake Total 950 ml 482.5 ml 393.75 ml OutputOutput Total 260 ml 220 ml 190 ml BalanceBalance 690 ml 262.5 ml 203.75 ml Constitutional: well developed Head: normocephalic, atraumatic Neck: supple Respiratory: diminished breath sounds Cardiovascular: regular rate and rhythm Gastrointestinal: soft, non-tender Extremities: normal pulses Results Results 24hrs Laboratory Tests Test 03/14/19 05:11 White Blood Count 6.4 # Red Blood Count 2.45 L Hemoglobin 7.4 L Hematocrit 25.2 L Mean Corpuscular Volume 102.9 H Mean Corpuscular Hemoglobin 30.2 Mean Corpuscular Hemoglobin Concent 29.4 L Red Cell Distribution Width 13.5 Platelet Count 441 H Mean Platelet Volume 11.8 H Immature Granulocytes % 1.600 H Neutrophils % 65.8 Lymphocytes % 15.4 Monocytes % 14.0 H Eosinophils % 2.4 Basophils % 0.8 Nucleated Red Blood Cells % 0.0 Immature Granulocytes # 0.100 H Neutrophils # 4.2 Lymphocytes # 1.0 Monocytes # 0.9 Eosinophils # 0.2 Basophils # 0.1 Nucleated Red Blood Cells # 0.0 Lactic Acid Level 1.0 Medications Medication Current Medications Dextrose (D50w Syringe) ONCE PRN IV DECREASED GLUCOSE Last administered on 03/02/19at 19:05; Admin Dose 50 ML; Start 03/02/19 at 14:00 Ondansetron HCl (Zofran Inj) 4 mg Q6H PRN IV NAUSEA AND/OR VOMITING; Start 03/02/19 at 14:00 Acetaminophen (Tylenol Liquid) 650 mg Q6H PRN PO PAIN LEVEL 1-3 OR FEVER Last administered on 03/14/19at 02:03; Admin Dose 650 MG; Start 03/02/19 at 14:00 Morphine Sulfate (morphine) 2 mg Q4H PRN IV PAIN LEVEL 7-10 Last administered on 03/12/19at 09:07; Admin Dose 2 MG; Start 03/02/19 at 14:00 Clonidine (Catapres) 0.2 mg Q6H PRN PO ELEVATED BLOOD PRESSURE; Start 03/02/19 at 18:00 Hydralazine HCl (Apresoline) 10 mg Q4H PRN IV SBP more than 150 mm hg ; Start 03/02/19 at 23:38 Fentanyl 100 ml @ 2.5 mls/hr TITRATE IV Last administered on 03/13/19at 16:10; Admin Dose 2.5 MLS/HR; Start 03/03/19 at 09:30 Norepinephrine 250 ml @ 1.875 mls/ hr TITRATE IV Last administered on 03/14/19at 05:42; Admin Dose 1.875 MLS/HR; Start 03/03/19 at 14:00 IV Flush (NS 10 ml) 10 ml Q8 PRN IV IV PROTOCOL; Start 03/03/19 at 15:30 Miscellaneous Information 1 ea NOTE XX ; Start 03/03/19 at 15:30 Glucose (Glutose) 15 gm Q15M PRN PO DECREASED GLUCOSE; Start 03/03/19 at 15:30 Glucose (Glutose) 22.5 gm Q15M PRN PO DECREASED GLUCOSE; Start 03/03/19 at 15:30 Dextrose (D50w Syringe) 25 ml Q15M PRN IV DECREASED GLUCOSE; Start 03/03/19 at 15:30 Dextrose (D50w Syringe) 50 ml Q15M PRN IV DECREASED GLUCOSE; Start 03/03/19 at 15:30 Glucagon (Glucagen) 1 mg Q15M PRN IM DECREASED GLUCOSE; Start 03/03/19 at 15:30 Glucose (Glutose) 15 gm Q15M PRN BUCCAL DECREASED GLUCOSE; Start 03/03/19 at 15 :30 Vancomycin HCl (Vanco Iv Per Pharmacy) VANCOMYCIN PER PHARMACY PER PROTOCOL XX ; Start 03/03/19 at 17:30 Mupirocin (Bactroban) 1 applic BID TOP Last administered on 03/14/19at 09:14; Admin Dose 1 APPLIC; Start 03/04/19 at 13:30; Stop 03/14/19 at 13:29 Fluconazole (Diflucan) 100 mg DAILY PO Last administered on 03/14/19at 09:15; Admin Dose 100 MG; Start 03/04/19 at 13:00 Meropenem/Sodium Chloride 50 ml @ 100 mls/hr Q12 IVPB Last administered on 03/14/19at 09:15; Admin Dose 100 MLS/HR; Start 03/08/19 at 12:30 Vancomycin HCl 250 ml @ 125 mls/hr Q24H IVPB Last administered on 03/13/19at 10:42; Admin Dose 125 MLS/HR; Start 03/09/19 at 11:00 Famotidine (Pepcid) 20 mg DAILY GTB Last administered on 03/14/19at 09:15; Admin Dose 20 MG; Start 03/10/19 at 09:00 Metronidazole (Flagyl) 500 mg Q8 PO Last administered on 03/14/19at 05:42; Admin Dose 500 MG; Start 03/10/19 at 15:00 Scopolamine (Transderm-Scop) 1 patch Q72H TRANSDERM Last administered on 03/13/19at 14:39; Admin Dose 1 PATCH; Start 03/10/19 at 15:30 Albumin Human 100 ml @ 100 mls/hr Q8H IV Last administered on 03/14/19at 10:39; Admin Dose 100 MLS/HR; Start 03/14/19 at 10:00; Stop 03/14/19 at 18:59 VERNON COWART Mar 14, 2019 11:20
[2019-03-14] MEDS: VANCOMYCIN 1 GM 250 ML IVPB SCH (11:24)
[2019-03-14] MEDS: FENTAnyl (DRIP) 1000 mcg/100mL 100 ML IV SCH (11:27)
--- NOTE | 2019-03-14 12:22 | CONS ---
Assessment/Plan Assessment/Plan Assessment/Plan (Daily) 1. acute hyperkalemia with K 7.3 on admission - now resolved 2. acute kidney injury on CKD III 2/2 ischemic ATN + prerenal azotemia 3. Severe metabolic acidosis- on Bicitra 4. septic shock s/p Levophed 5. H/o COPD 6. H/o diastolic Heart failure with Preserved EF 7. H/o Hypothyroidisk 8. H/o Parkinoson's disease 9. h/o HTN 10. acute hypoxic respiratory failure intubated on ventilator 11. Anemia- Hgb 7.6 Plan: Comfort care on Friday Ventilator care pulmonary , remained intubated, on FiO2 30%, PEEP 5 d/c bicitra, d/c IVF- BUN/Cr improved to 32/1.15- other electrolytes stable UO - 700 ml/24 hrs IV abx Meropenem ., Vancomycin and PO Fluconazole, Flagyl 500mg PO Q 8 hr < renally dose all abx and monitoe electrolytes DNR code status- Niece wants to hold off on hospice at this time, to give more time for pt to recover Total critical care time spent 30 mins Patient seen in collaboration with Dr Shraddha Cordoba. We will follow up. Consultation Date/Type/Reason Admit Date/Time Mar 02, 2019 at 13:39 Initial Consult Date 03/03/19 Type of Consult NEPHROLOGY Requesting Provider: LISA MATA MD Date/Time of Note DATE: 03/14/19 TIME: 12:20 24 HR Interval Summary Free Text/Dictation Levo started at 2 mcg today getting albumin BUN/Cr improved to 32/1.15 UO - 700 ml/24 hrs plan for comfort care on Friday Subjective hx not possible: pt non-verbal Constitutional: requiring IVF, requiring O2 Exam/Review of Systems Exam Vitals Vital Signs Date Temp Pulse Resp B/P (MAP) Pulse Ox O2 O2 Flow FiO2 Time Delivery Rate 03/14/19 66 18 94/41 (58) 99 Mechanical 10:00 Ventilator 03/14/19 30 08:00 03/14/19 99.4 08:00 Intake and Output 03/13/19 03/13/19 03/14/19 1515:00 23:00 07:00 IntakeIntake Total 950 ml 482.5 ml 393.75 ml OutputOutput Total 260 ml 220 ml 190 ml BalanceBalance 690 ml 262.5 ml 203.75 ml Constitutional: well developed, non-verbal, obese Psych: nl mood/affect Eyes: nl lids, nl sclera ENMT: nl external ears & nose Neck: other (ET tube intact) Respiratory: clear to auscultation Cardiovascular: nl pulses, other (s1s2) Gastrointestinal: soft Musculoskeletal: muscle weakness Extremities: normal pulses, edema Neurological: lethargic Skin: other (no skin rash noted) Results Result Diagram: 03/14/19 0511 03/13/19 0458 Results 24hrs Laboratory Tests Test 03/14/19 05:11 White Blood Count 6.4 # Red Blood Count 2.45 L Hemoglobin 7.4 L Hematocrit 25.2 L Mean Corpuscular Volume 102.9 H Mean Corpuscular Hemoglobin 30.2 Mean Corpuscular Hemoglobin Concent 29.4 L Red Cell Distribution Width 13.5 Platelet Count 441 H Mean Platelet Volume 11.8 H Immature Granulocytes % 1.600 H Neutrophils % 65.8 Lymphocytes % 15.4 Monocytes % 14.0 H Eosinophils % 2.4 Basophils % 0.8 Nucleated Red Blood Cells % 0.0 Immature Granulocytes # 0.100 H Neutrophils # 4.2 Lymphocytes # 1.0 Monocytes # 0.9 Eosinophils # 0.2 Basophils # 0.1 Nucleated Red Blood Cells # 0.0 Lactic Acid Level 1.0 Medications Medication Current Medications Dextrose (D50w Syringe) ONCE PRN IV DECREASED GLUCOSE Last administered on 03/02/19at 19:05; Admin Dose 50 ML; Start 03/02/19 at 14:00 Ondansetron HCl (Zofran Inj) 4 mg Q6H PRN IV NAUSEA AND/OR VOMITING; Start 03/02/19 at 14:00 Acetaminophen (Tylenol Liquid) 650 mg Q6H PRN PO PAIN LEVEL 1-3 OR FEVER Last administered on 03/14/19at 02:03; Admin Dose 650 MG; Start 03/02/19 at 14:00 Morphine Sulfate (morphine) 2 mg Q4H PRN IV PAIN LEVEL 7-10 Last administered on 03/12/19at 09:07; Admin Dose 2 MG; Start 03/02/19 at 14:00 Clonidine (Catapres) 0.2 mg Q6H PRN PO ELEVATED BLOOD PRESSURE; Start 03/02/19 at 18:00 Hydralazine HCl (Apresoline) 10 mg Q4H PRN IV SBP more than 150 mm hg ; Start 03/02/19 at 23:38 Fentanyl 100 ml @ 2.5 mls/hr TITRATE IV Last administered on 03/14/19at 11:27; Admin Dose 5 MLS/HR; Start 03/03/19 at 09:30 Norepinephrine 250 ml @ 1.875 mls/ hr TITRATE IV Last administered on at 05:42; Admin Dose 1.875 MLS/HR; Start 03/03/19 at 14:00 IV Flush (NS 10 ml) 10 ml Q8 PRN IV IV PROTOCOL; Start 03/03/19 at 15:30 Miscellaneous Information 1 ea NOTE XX ; Start 03/03/19 at 15:30 Glucose (Glutose) 15 gm Q15M PRN PO DECREASED GLUCOSE; Start 03/03/19 at 15:30 Glucose (Glutose) 22.5 gm Q15M PRN PO DECREASED GLUCOSE; Start 03/03/19 at 15:30 Dextrose (D50w Syringe) 25 ml Q15M PRN IV DECREASED GLUCOSE; Start 03/03/19 at 15:30 Dextrose (D50w Syringe) 50 ml Q15M PRN IV DECREASED GLUCOSE; Start 03/03/19 at 15:30 Glucagon (Glucagen) 1 mg Q15M PRN IM DECREASED GLUCOSE; Start 03/03/19 at 15:30 Glucose (Glutose) 15 gm Q15M PRN BUCCAL DECREASED GLUCOSE; Start 03/03/19 at 15:30 Vancomycin HCl (Vanco Iv Per Pharmacy) VANCOMYCIN PER PHARMACY PER PROTOCOL XX ; Start 03/03/19 at 17:30 Mupirocin (Bactroban) 1 applic BID TOP Last administered on 03/14/19at 09:14; Admin Dose 1 APPLIC; Start 03/04/19 at 13:30; Stop 03/14/19 at 13:29 Fluconazole (Diflucan) 100 mg DAILY PO Last administered on 03/14/19at 09:15; Admin Dose 100 MG; Start 03/04/19 at 13:00 Meropenem/Sodium Chloride 50 ml @ 100 mls/hr Q12 IVPB Last administered on 03/14/19at 09:15; Admin Dose 100 MLS/HR; Start 03/08/19 at 12:30 Vancomycin HCl 250 ml @ 125 mls/hr Q24H IVPB Last administered on 03/14/19at 11:24; Admin Dose 125 MLS/HR; Start 03/09/19 at 11:00 Famotidine (Pepcid) 20 mg DAILY GTB Last administered on 03/14/19at 09:15; Admin Dose 20 MG; Start 03/10/19 at 09:00 Metronidazole (Flagyl) 500 mg Q8 PO Last administered on 03/14/19at 05:42; Admin Dose 500 MG; Start 03/10/19 at 15:00 Scopolamine (Transderm-Scop) 1 patch Q72H TRANSDERM Last administered on 03/13/19at 14:39; Admin Dose 1 PATCH; Start 03/10/19 at 15:30 Albumin Human 100 ml @ 100 mls/hr Q8H IV Last administered on 03/14/19at 10:39; Admin Dose 100 MLS/HR; Start 03/14/19 at 10:00; Stop 03/14/19 at 18:59 Midodrine (Proamatine) 10 mg Q8 NGT ; Start 03/14/19 at 14:00 PANCHO SIGALA Mar 14, 2019 12:21
[2019-03-14] MEDS: MIDODRINE 5 MG TAB NGT SCH ×2 (13:30→21:01)
--- NOTE | 2019-03-14 14:34 | CONS ---
Assessment/Plan Assessment/Plan Hospital Course (Demo Recall) No acute changes patient looks comfortable still with ongoing fevers with a T- max this morning 101.8 WBC 6.4 platelets 441 neutrophils 65.8 BUN 32 creatinine 1.15 C. difficile came back negative Antimicrobials: Flagyl, IV vancomycin, meropenem, fluconazole Microbiology: Endotracheal aspirate grew MRSA urine culture grew Klebsiella Ela albicans INDWELLINGS: Endotracheal tube, NG tube, Cabrera catheter, PICC line. DIAGNOSTICS: Renal ultrasound revealed no evidence of hydronephrosis. A chest x-ray revealed atelectatic changes with superimposed infectious/inflammatory process in the right lung. Gallbladder ultrasound on admission revealed dilated pancreatic duct measuring up to 4 mm, mass in the region of pancreatic head cannot be excluded. Recommendation of CT with contrast or MRCP, no evidence of gallstones. ALLERGIES: NONE. PHYSICAL EXAMINATION: GENERAL: This is a chronically ill-appearing, obese elderly woman who is in no distress. Head atraumatic, normocephalic. NECK: Obese. CHEST: Rise symmetrical. Breath sounds diminished to bases. HEART: S1, S2. ABDOMEN: Obese, soft, bowel tones present. EXTREMITIES: Bilateral lower extremities edema, erythema, dsg intact. ASSESSMENT: 1. Severe sepsis with shock 2. Ongoing fevers 2. Bilateral lower extremity cellulitis, acute on chronic 2. Urinary tract infection. 3. Acute hypoxemic respiratory failure, poss aspiration. 4. Acute on chronic kidney disease. 5. Congestive heart failure. 6. Morbid obesity. 7. MRSA nares colonization. 8. Acute encephalopathy 9. Diarrhea==> neg C. difficile 10. Dilated pancreatic duct measuring up to 4 mm 11. DNR PLAN: Restarted on Levophed drip, continue antibiotics, vent management per pulmonary, await for repeat cultures, consider MRCP. PATTI Laguerre Discussed with RN Consultation Date/Type/Reason Admit Date/Time Mar 02, 2019 at 13:39 Initial Consult Date 03/03/19 Type of Consult id Requesting Provider: LISA MATA MD Date/Time of Note DATE: 03/14/19 TIME: 14:33 Exam/Review of Systems Exam Vitals Vital Signs Date Temp Pulse Resp B/P (MAP) Pulse Ox O2 O2 Flow FiO2 Time Delivery Rate 03/14/19 100.4 13:29 03/14/19 72 24 100 30 11:40 03/14/19 94/41 (58) Mechan[place] 10:00 l Ventilato r Intake and Output 03/13/19 03/13/19 03/14/19 1515:00 23:00 07:00 IntakeIntake Total 950 ml 482.5 ml 393.75 ml OutputOutput Total 260 ml 220 ml 190 ml BalanceBalance 690 ml 262.5 ml 203.75 ml Results Result Diagram: 03/14/19 0511 03/13/19 0458 Results 24hrs Laboratory Tests Test 03/14/19 05:11 White Blood Count 6.4 # Red Blood Count 2.45 L Hemoglobin 7.4 L Hematocrit 25.2 L Mean Corpuscular Volume 102.9 H Mean Corpuscular Hemoglobin 30.2 Mean Corpuscular Hemoglobin Concent 29.4 L Red Cell Distribution Width 13.5 Platelet Count 441 H Mean Platelet Volume 11.8 H Immature Granulocytes % 1.600 H Neutrophils % 65.8 Lymphocytes % 15.4 Monocytes % 14.0 H Eosinophils % 2.4 Basophils % 0.8 Nucleated Red Blood Cells % 0.0 Immature Granulocytes # 0.100 H Neutrophils # 4.2 Lymphocytes # 1.0 Monocytes # 0.9 Eosinophils # 0.2 Basophils # 0.1 Nucleated Red Blood Cells # 0.0 Lactic Acid Level 1.0 Medications Medication Current Medications Dextrose (D50w Syringe) ONCE PRN IV DECREASED GLUCOSE Last administered on 03/02/19at 19:05; Admin Dose 50 ML; Start 03/02/19 at 14:00 Ondansetron HCl (Zofran Inj) 4 mg Q6H PRN IV NAUSEA AND/OR VOMITING; Start 03/02/19 at 14:00 Acetaminophen (Tylenol Liquid) 650 mg Q6H PRN PO PAIN LEVEL 1-3 OR FEVER Last administered on 03/14/19at 13:29; Admin Dose 650 MG; Start 03/02/19 at 14:00 Morphine Sulfate (morphine) 2 mg Q4H PRN IV PAIN LEVEL 7-10 Last administered on 03/12/19at 09:07; Admin Dose 2 MG; Start 03/02/19 at 14:00 Clonidine (Catapres) 0.2 mg Q6H PRN PO ELEVATED BLOOD PRESSURE; Start 03/02/19 at 18:00 Hydralazine HCl (Apresoline) 10 mg Q4H PRN IV SBP more than 150 mm hg ; Start 03/02/19 at 23:38 Fentanyl 100 ml @ 2.5 mls/hr TITRATE IV Last administered on 03/14/19at 11:27; Admin Dose 5 MLS/HR; Start 03/03/19 at 09:30 Norepinephrine 250 ml @ 1.875 mls/ hr TITRATE IV Last administered on 03/14/19at 05:42; Admin Dose 1.875 MLS/HR; Start 03/03/19 at 14:00 IV Flush (NS 10 ml) 10 ml Q8 PRN IV IV PROTOCOL; Start 03/03/19 at 15:30 Miscellaneous Information 1 ea NOTE XX ; Start 03/03/19 at 15:30 Glucose (Glutose) 15 gm Q15M PRN PO DECREASED GLUCOSE; Start 03/03/19 at 15:30 Glucose (Glutose) 22.5 gm Q15M PRN PO DECREASED GLUCOSE; Start 03/03/19 at 15:30 Dextrose (D50w Syringe) 25 ml Q15M PRN IV DECREASED GLUCOSE; Start 03/03/19 at 15:30 Dextrose (D50w Syringe) 50 ml Q15M PRN IV DECREASED GLUCOSE; Start 03/03/19 at 15:30 Glucagon (Glucagen) 1 mg Q15M PRN IM DECREASED GLUCOSE; Start 03/03/19 at 15:30 Glucose (Glutose) 15 gm Q15M PRN BUCCAL DECREASED GLUCOSE; Start 03/03/19 at 15:30 Vancomycin HCl (Vanco Iv Per Pharmacy) VANCOMYCIN PER PHARMACY PER PROTOCOL XX ; Start 03/03/19 at 17:30 Fluconazole (Diflucan) 100 mg DAILY PO Last administered on 03/14/19at 09:15; Admin Dose 100 MG; Start 03/04/19 at 13:00 Meropenem/Sodium Chloride 50 ml @ 100 mls/hr Q12 IVPB Last administered on 03/14/19at 09:15; Admin Dose 100 MLS/HR; Start 03/08/19 at 12:30 Vancomycin HCl 250 ml @ 125 mls/hr Q24H IVPB Last administered on 03/14/19at 11:24; Admin Dose 125 MLS/HR; Start 03/09/19 at 11:00 Famotidine (Pepcid) 20 mg DAILY GTB Last administered on 03/14/19at 09:15; Admin Dose 20 MG; Start 03/10/19 at 09:00 Metronidazole (Flagyl) 500 mg Q8 PO Last administered on 03/14/19at 13:29; Admin Dose 500 MG; Start 03/10/19 at 15:00 Scopolamine (Transderm-Scop) 1 patch Q72H TRANSDERM Last administered on 03/13/19at 14:39; Admin Dose 1 PATCH; Start 03/10/19 at 15:30 Albumin Human 100 ml @ 100 mls/hr Q8H IV Last administered on 03/14/19at 10:39; Admin Dose 100 MLS/HR; Start 03/14/19 at 10:00; Stop 03/14/19 at 18:59 Midodrine (Proamatine) 10 mg Q8 NGT Last administered on 03/14/19at 13:30; Admin Dose 10 MG; Start 03/14/19 at 14:00 Miscellaneous Information (*Rx Drug Level Order Reminder*) VANCO TROUGH @ 1,000 1000 ONCE XX ; Start 03/15/19 at 10:00; Stop 03/15/19 at 10:01 ANITA VIERA NP Mar 14, 2019 14:34
[2019-03-14] MEDS: LORAZEPAM 2 MG INJ IV PRN (21:37)
[2019-03-15] VITALS (63 sets, daily range): BP systolic 79–139; BP diastolic 34–122; PULSE 48–89; RESP 15–32
[2019-03-15] MEDS: MIDODRINE 5 MG TAB NGT SCH ×2 (05:16→14:54)
[2019-03-15] MEDS: FENTAnyl (DRIP) 1000 mcg/100mL 100 ML IV SCH (07:07)
[2019-03-15] MEDS: FAMOTIDINE 20 MG TAB GTB SCH (08:32)
[2019-03-15] MEDS: FLUCONAZOLE 100 MG TAB PO SCH (08:32)
[2019-03-15] MEDS: MEROPENEM 500MG/50 ML (PMX) 50 ML IVPB SCH (08:33)
[2019-03-15] MEDS: VANCOMYCIN 1 GM 250 ML IVPB SCH (11:01)
--- NOTE | 2019-03-15 11:35 | CONS ---
Assessment/Plan Assessment/Plan Assessment/Plan (Daily) 1. acute hyperkalemia with K 7.3 on admission - now resolved 2. acute kidney injury on CKD III 2/2 ischemic ATN + prerenal azotemia 3. Severe metabolic acidosis- on Bicitra 4. septic shock s/p Levophed 5. H/o COPD 6. H/o diastolic Heart failure with Preserved EF 7. H/o Hypothyroidisk 8. H/o Parkinoson's disease 9. h/o HTN 10. acute hypoxic respiratory failure intubated on ventilator 11. Anemia- Hgb 7.6 Plan: DNR code status, possible plan for hospice care if Niece Agrees will damaso wiley Consultation Date/Type/Reason Admit Date/Time Mar 02, 2019 at 13:39 Initial Consult Date 03/03/19 Type of Consult NEPHROLOGY Requesting Provider: LISA MATA MD Date/Time of Note DATE: 03/15/19 TIME: 11:26 Exam/Review of Systems Exam Vitals Vital Signs Date Temp Pulse Resp B/P (MAP) Pulse Ox O2 O2 Flow FiO2 Time Delivery Rate 03/15/19 70 23 121/53 99 Mechanical 11:00 (75) Ventilator 03/15/19 40 08:00 03/15/19 98.5 08:00 Intake and Output 03/14/19 03/14/19 03/15/19 1515:00 23:00 07:00 IntakeIntake Total 1336.20 ml 757.975 ml 940 ml OutputOutput Total 290 ml 225 ml 185 ml BalanceBalance 1046.20 ml 532.975 ml 755 ml Results Result Diagram: 03/15/19 0511 03/15/19 0511 Results 24hrs Laboratory Tests Test 03/15/19 05:11 03/15/19 10:00 03/15/19 10:03 White Blood Count 5.0 # Red Blood Count 2.09 L Hemoglobin 6.3 *L Hematocrit 21.5 L Mean Corpuscular Volume 102.9 H Mean Corpuscular Hemoglobin 30.1 Mean Corpuscular 29.3 L Hemoglobin Concent Red Cell Distribution Width 13.3 Platelet Count 390 Mean Platelet Volume 11.3 H Immature Granulocytes % 1.200 H Neutrophils % 66.2 Lymphocytes % 13.6 L Monocytes % 15.2 H Eosinophils % 3.0 Basophils % 0.8 Nucleated Red Blood Cells % 0.0 Immature Granulocytes # 0.060 H Neutrophils # 3.3 Lymphocytes # 0.7 L Monocytes # 0.8 Eosinophils # 0.2 Basophils # 0.0 Nucleated Red Blood Cells # 0.0 Sodium Level 138 Potassium Level 4.4 Chloride Level 108 Carbon Dioxide Level 30 Anion Gap 0 L Blood Urea Nitrogen 32 H Creatinine 1.00 Est Glomerular Filtrat Rate mL/min Glucose Level 136 Calcium Level 7.1 L Phosphorus Level 3.7 Magnesium Level 2.6 H Blood Gas Specimen Source Blood arterial Arterial Blood Date Drawn 03/15/2019 9:49:13 AM Arterial Blood pH 7.422 (Temp corrected) Arterial Blood pCO2 37.2 (Temp correct) Arterial Blood pO2 91.9 H (Temp corrected) Arterial Blood HCO3 23.7 Arterial Blood Base Excess -0.6 Arterial Blood 97.0 Oxygen Saturation Jewel Test ACCEPTAB Arterial Blood Gas Right Radial Puncture Site Arterial 0 Blood Carboxyhemoglobin Arterial Blood 0.3 Methemoglobin Blood Gas A-a O2 150.5 H Differential Oxyhemoglobin Percent 96.7 Blood Gas Temperature 37.0 Blood Gas Actual 18 Respiration Rate Blood Gas Modality VENT - CPAP FiO2 40.0 Blood Gas Low PEEP Setting 5.0 Blood Gas Pressure Support 10 Blood Gas Notified Whom TM Blood Gas Notified Time 03/15/2019 10:07:55 AM Vancomycin Level Trough 14.5 Medications Medication Current Medications Dextrose (D50w Syringe) ONCE PRN IV DECREASED GLUCOSE Last administered on 03/02/19at 19:05; Admin Dose 50 ML; Start 03/02/19 at 14:00 Ondansetron HCl (Zofran Inj) 4 mg Q6H PRN IV NAUSEA AND/OR VOMITING; Start 03/02/19 at 14:00 Acetaminophen (Tylenol Liquid) 650 mg Q6H PRN PO PAIN LEVEL 1-3 OR FEVER Last administered on 03/14/19at 13:29; Admin Dose 650 MG; Start 03/02/19 at 14:00 Morphine Sulfate (morphine) 2 mg Q4H PRN IV PAIN LEVEL 7-10 Last administered on 03/12/19at 09:07; Admin Dose 2 MG; Start 03/02/19 at 14:00 Clonidine (Catapres) 0.2 mg Q6H PRN PO ELEVATED BLOOD PRESSURE; Start 03/02/19 at 18:00 Hydralazine HCl (Apresoline) 10 mg Q4H PRN IV SBP more than 150 mm hg ; Start 03/02/19 at 23:38 Fentanyl 100 ml @ 2.5 mls/hr TITRATE IV Last administered on 03/15/19at 07:07; Admin Dose 5 MLS/HR; Start 03/03/19 at 09:30 Norepinephrine 250 ml @ 1.875 mls/ hr TITRATE IV Last administered on 03/14/19at 05:42; Admin Dose 1.875 MLS/HR; Start 03/03/19 at 14:00 IV Flush (NS 10 ml) 10 ml Q8 PRN IV IV PROTOCOL; Start 03/03/19 at 15:30 Miscellaneous Information 1 ea NOTE XX ; Start 03/03/19 at 15:30 Glucose (Glutose) 15 gm Q15M PRN PO DECREASED GLUCOSE; Start 03/03/19 at 15:30 Glucose (Glutose) 22.5 gm Q15M PRN PO DECREASED GLUCOSE; Start 03/03/19 at 15:30 Dextrose (D50w Syringe) 25 ml Q15M PRN IV DECREASED GLUCOSE; Start 03/03/19 at 15:30 Dextrose (D50w Syringe) 50 ml Q15M PRN IV DECREASED GLUCOSE; Start 03/03/19 at 15:30 Glucagon (Glucagen) 1 mg Q15M PRN IM DECREASED GLUCOSE; Start 03/03/19 at 15:30 Glucose (Glutose) 15 gm Q15M PRN BUCCAL DECREASED GLUCOSE; Start 03/03/19 at 15:30 Vancomycin HCl (Vanco Iv Per Pharmacy) VANCOMYCIN PER PHARMACY PER PROTOCOL XX ; Start 03/03/19 at 17:30 Fluconazole (Diflucan) 100 mg DAILY PO Last administered on 03/15/19at 08:32; Admin Dose 100 MG; Start 03/04/19 at 13:00 Meropenem/Sodium Chloride 50 ml @ 100 mls/hr Q12 IVPB Last administered on 03/15/19at 08:33; Admin Dose 100 MLS/HR; Start 03/08/19 at 12:30 Vancomycin HCl 250 ml @ 125 mls/hr Q24H IVPB Last administered on 03/15/19at 11:01; Admin Dose 125 MLS/HR; Start 03/09/19 at 11:00 Famotidine (Pepcid) 20 mg DAILY GTB Last administered on 03/15/19 08:32; Admin Dose 20 MG; Start 03/10/19 at 09:00 Scopolamine (Transderm-Scop) 1 patch Q72H TRANSDERM Last administered on 03/13/19at 14:39; Admin Dose 1 PATCH; Start 03/10/19 at 15:30 Midodrine (Proamatine) 10 mg Q8 NGT Last administered on 03/15/19at 05:16; Admin Dose 10 MG; Start 03/14/19 at 14:00 Lorazepam (Ativan) 1 mg Q6H PRN IV AGITATION Last administered on 03/14/19at 2 1:37; Admin Dose 1 MG; Start 03/14/19 at 21:30 ENRIQUETA HUNG MD Mar 15, 2019 11:35
--- NOTE | 2019-03-15 11:44 | PN ---
Date/Time of Note Date/Time of Note DATE: 03/15/19 TIME: 11:36 Assessment/Plan VTE Prophylaxis Risk score (from [facility])>0 risk: 13 SCD applied (from [facility]): No SCD contraindicated: bilateral LE trauma Pharmacological prophylaxis: NA/contraindicated Pharm contraindication: anticoag not tolerated Lines/Catheters IV C[facility]ter Type (from [facility] Mid Line Central line still needed: Yes Urinary Cath still in place: Yes Reason Cath still needed: urinary retention Assessment/Plan Hospital Course Patient tolerates weaning and will be extubated today, per next of kin request if patient respiratory function deteriorates they would prefer comfort care versus reintubation and placing on mechanical ventilation. Assessment/Plan -Acute respiratory failure requiring intubation and ventilatory support, continue weaning per pulmonology possible extubation today. -Status post septic shock, continue antibiotics per ID. Dr. Stephens is following infection disease consultation. -Bilateral lower extremity cellulitis -Anemia -Acute kidney injury on CKD III -Acute encephalopathy -COPD -Diastolic congestive heart failure with preserved ejection fraction -Hypothyroidism -Obesity -History of COPD -History of Parkinson's disease. -DNR Further recommendations based on clinical course. Plan of care discussed with Dr. Bonilla. Result Diagram: 03/15/19 0511 03/15/19 0511 Results 24hrs Laboratory Tests Test 03/15/19 05:11 03/15/19 10:00 03/15/19 10:03 White Blood Count 5.0 # Red Blood Count 2.09 L Hemoglobin 6.3 *L Hematocrit 21.5 L Mean Corpuscular Volume 102.9 H Mean Corpuscular Hemoglobin 30.1 Mean Corpuscular 29.3 L Hemoglobin Concent Red Cell Distribution Width 13.3 Platelet Count 390 Mean Platelet Volume 11.3 H Immature Granulocytes % 1.200 H Neutrophils % 66.2 Lymphocytes % 13.6 L Monocytes % 15.2 H Eosinophils % 3.0 Basophils % 0.8 Nucleated Red Blood Cells % 0.0 Immature Granulocytes # 0.060 H Neutrophils # 3.3 Lymphocytes # 0.7 L Monocytes # 0.8 Eosinophils # 0.2 Basophils # 0.0 Nucleated Red Blood Cells # 0.0 Sodium Level 138 Potassium Level 4.4 Chloride Level 108 Carbon Dioxide Level 30 Anion Gap 0 L Blood Urea Nitrogen 32 H Creatinine 1.00 Est Glomerular Filtrat Rate mL/min Glucose Level 136 Calcium Level 7.1 L Phosphorus Level 3.7 Magnesium Level 2.6 H Blood Gas Specimen Source Blood arterial Arterial Blood Date Drawn 03/15/2019 9:49:13 AM Arterial Blood pH 7.422 (Temp corrected) Arterial Blood pCO2 37.2 (Temp correct) Arterial Blood pO2 91.9 H (Temp corrected) Arterial Blood HCO3 23.7 Arterial Blood Base Excess -0.6 Arterial Blood 97.0 Oxygen Saturation Jewel Test ACCEPTAB Arterial Blood Gas Right Radial Puncture Site Arterial 0 Blood Carboxyhemoglobin Arterial Blood 0.3 Methemoglobin Blood Gas A-a O2 150.5 H Differential Oxyhemoglobin Percent 96.7 Blood Gas Temperature 37.0 Blood Gas Actual 18 Respiration Rate Blood Gas Modality VENT - CPAP FiO2 40.0 Blood Gas Low PEEP Setting 5.0 Blood Gas Pressure Support 10 Blood Gas Notified Whom TM Blood Gas Notified Time 03/15/2019 10:07:55 AM Vancomycin Level Trough 14.5 Exam/Review of Systems Exam Vitals Vital Signs Date Temp Pulse Resp B/P (MAP) Pulse Ox O2 O2 Flow FiO2 Time Delivery Rate 03/15/19 70 23 121/53 99 Mechanical 11:00 (75) Ventilator 03/15/19 40 08:00 03/15/19 98.5 08:00 Intake and Output 03/14/19 03/14/19 03/15/19 1515:00 23:00 07:00 IntakeIntake Total 1336.20 ml 757.975 ml 940 ml OutputOutput Total 290 ml 225 ml 185 ml BalanceBalance 1046.20 ml 532.975 ml 755 ml Constitutional: frail Psych: confusion Neck: supple Respiratory: diminished breath sounds Cardiovascular: regular rate and rhythm Gastrointestinal: soft Extremities: normal pulses Skin: other (Multiple wounds) Results Results 24hrs Laboratory Tests Test 03/15/19 05:11 03/15/19 10:00 03/15/19 10:03 White Blood Count 5.0 # Red Blood Count 2.09 L Hemoglobin 6.3 *L Hematocrit 21.5 L Mean Corpuscular Volume 102.9 H Mean Corpuscular Hemoglobin 30.1 Mean Corpuscular 29.3 L Hemoglobin Concent Red Cell Distribution Width 13.3 Platelet Count 390 Mean Platelet Volume 11.3 H Immature Granulocytes % 1.200 H Neutrophils % 66.2 Lymphocytes % 13.6 L Monocytes % 15.2 H Eosinophils % 3.0 Basophils % 0.8 Nucleated Red Blood Cells % 0.0 Immature Granulocytes # 0.060 H Neutrophils # 3.3 Lymphocytes # 0.7 L Monocytes # 0.8 Eosinophils # 0.2 Basophils # 0.0 Nucleated Red Blood Cells # 0.0 Sodium Level 138 Potassium Level 4.4 Chloride Level 108 Carbon Dioxide Level 30 Anion Gap 0 L Blood Urea Nitrogen 32 H Creatinine 1.00 Est Glomerular Filtrat Rate mL/min Glucose Level 136 Calcium Level 7.1 L Phosphorus Level 3.7 Magnesium Level 2.6 H Blood Gas Specimen Source Blood arterial Arterial Blood Date Drawn 03/15/2019 9:49:13 AM Arterial Blood pH 7.422 (Temp corrected) Arterial Blood pCO2 37.2 (Temp correct) Arterial Blood pO2 91.9 H (Temp corrected) Arterial Blood HCO3 23.7 Arterial Blood Base Excess -0.6 Arterial Blood 97.0 Oxygen Saturation Jewel Test ACCEPTAB Arterial Blood Gas Right Radial Puncture Site Arterial 0 Blood Carboxyhemoglobin Arterial Blood 0.3 Methemoglobin Blood Gas A-a O2 150.5 H Differential Oxyhemoglobin Percent 96.7 Blood Gas Temperature 37.0 Blood Gas Actual 18 Respiration Rate Blood Gas Modality VENT - CPAP FiO2 40.0 Blood Gas Low PEEP Setting 5.0 Blood Gas Pressure Support 10 Blood Gas Notified Whom TM Blood Gas Notified Time 03/15/2019 10:07:55 AM Vancomycin Level Trough 14.5 Medications Medication Current Medications Dextrose (D50w Syringe) ONCE PRN IV DECREASED GLUCOSE Last administered on 03/02/19at 19:05; Admin Dose 50 ML; Start 03/02/19 at 14:00 Ondansetron HCl (Zofran Inj) 4 mg Q6H PRN IV NAUSEA AND/OR VOMITING; Start 03/02/19 at 14:00 Acetaminophen (Tylenol Liquid) 650 mg Q6H PRN PO PAIN LEVEL 1-3 OR FEVER Last administered on 03/14/19at 13:29; Admin Dose 650 MG; Start 03/02/19 at 14:00 Morphine Sulfate (morphine) 2 mg Q4H PRN IV PAIN LEVEL 7-10 Last administered on 03/12/19at 09:07; Admin Dose 2 MG; Start 03/02/19 at 14:00 Clonidine (Catapres) 0.2 mg Q6H PRN PO ELEVATED BLOOD PRESSURE; Start 03/02/19 at 18:00 Hydralazine HCl (Apresoline) 10 mg Q4H PRN IV SBP more than 150 mm hg ; Start 03/02/19 at 23:38 Fentanyl 100 ml @ 2.5 mls/hr TITRATE IV Last administered on 03/15/19at 07:07; Admin Dose 5 MLS/HR; Start 03/03/19 at 09:30 Norepinephrine 250 ml @ 1.875 mls/ hr TITRATE IV Last administered on 03/14/19at 05:42; Admin Dose 1.875 MLS/HR; Start 03/03/19 at 14:00 IV Flush (NS 10 ml) 10 ml Q8 PRN IV IV PROTOCOL; Start 03/03/19 at 15:30 Miscellaneous Information 1 ea NOTE XX ; Start 03/03/19 at 15:30 Glucose (Glutose) 15 gm Q15M PRN PO DECREASED GLUCOSE; Start 03/03/19 at 15:30 Glucose (Glutose) 22.5 gm Q15M PRN PO DECREASED GLUCOSE; Start 03/03/19 at 15:30 Dextrose (D50w Syringe) 25 ml Q15M PRN IV DECREASED GLUCOSE; Start 03/03/19 at 15:30 Dextrose (D50w Syringe) 50 ml Q15M PRN IV DECREASED GLUCOSE; Start 03/03/19 at 15:30 Glucagon (Glucagen) 1 mg Q15M PRN IM DECREASED GLUCOSE; Start 03/03/19 at 15:30 Glucose (Glutose) 15 gm Q15M PRN BUCCAL DECREASED GLUCOSE; Start 03/03/19 at 15:30 Vancomycin HCl (Vanco Iv Per Pharmacy) VANCOMYCIN PER PHARMACY PER PROTOCOL XX ; Start 03/03/19 at 17:30 Fluconazole (Diflucan) 100 mg DAILY PO Last administered on 03/15/19at 08:32; Admin Dose 100 MG; Start 03/04/19 at 13:00 Meropenem/Sodium Chloride 50 ml @ 100 mls/hr Q12 IVPB Last administered on 03/15/19at 08:33; Admin Dose 100 MLS/HR; Start 03/08/19 at 12:30 Vancomycin HCl 250 ml @ 125 mls/hr Q24H IVPB Last administered on 03/15/19at 11:01; Admin Dose 125 MLS/HR; Start 03/09/19 at 11:00 Famotidine (Pepcid) 20 mg DAILY GTB Last administered on 03/15/19 08:32; Admin Dose 20 MG; Start 03/10/19 at 09:00 Scopolamine (Transderm-Scop) 1 patch Q72H TRANSDERM Last administered on 03/13/19 14:39; Admin Dose 1 PATCH; Start 03/10/19 at 15:30 Midodrine (Proamatine) 10 mg Q8 NGT Last administered on 03/15/19 05:16; Admin Dose 10 MG; Start 03/14/19 at 14:00 Lorazepam (Ativan) 1 mg Q6H PRN IV AGITATION Last administered on 03/14/19 21:37; Admin Dose 1 MG; Start 03/14/19 at 21:30 ABI GARCIA Mar 15, 2019 11:44
[2019-03-15] MEDS ORDERED: SOD CHLORIDE 0.9% 250 ML IV* ONE (11:55)
--- NOTE | 2019-03-15 11:57 | CONS ---
Consult Date/Type/Reason Admit Date/Time Mar 02, 2019 at 13:39 Initial Consult Date 03/03/19 Type of Consult Pulmonary Requesting Provider: LISA MATA MD Date/Time of Note DATE: 03/15/19 TIME: 11:56 Subjective Patient stable on CPAP this morning. Moderate secretions currently managed. Objective Vital Signs Date Temp Pulse Resp B/P (MAP) Pulse Ox O2 O2 Flow FiO2 Time Delivery Rate 03/15/19 68 15 120/74 100 11:30 (89) 03/15/19 Mechanical 11:00 Ventilator 03/15/19 40 08:00 03/15/19 98.5 08:00 Intake and Output 03/14/19 03/14/19 03/15/19 1515:00 23:00 07:00 IntakeIntake Total 1336.20 ml 757.975 ml 940 ml OutputOutput Total 290 ml 225 ml 185 ml BalanceBalance 1046.20 ml 532.975 ml 755 ml Exam GENERAL: Chronically ill-appearing lady orally intubated on mechanical ventilation VITAL SIGNS: per chart NECK: Supple. No JVD or lymphadenopathy. CARDIAC EXAM: S1, S2. No added sounds or murmurs. CHEST: Diminished air entry bilaterally ABDOMEN: Soft, nontender. No guarding or rebound. Mild distention EXTREMITIES: No cyanosis, clubbing edema +2 NEUROLOGIC: Generalized weakness. Significant contractures Vent Setting Ventilator Support Mode: CPAP Fraction of Inspired Oxygen pe: 40 Positive End Expiratory Pressu: 5.0 Results/Medications Result Diagram: 03/15/19 0511 03/15/19 0511 Results 24 hrs Laboratory Tests Test 03/15/19 05:11 03/15/19 10:00 03/15/19 10:03 White Blood Count 5.0 # Red Blood Count 2.09 L Hemoglobin 6.3 *L Hematocrit 21.5 L Mean Corpuscular Volume 102.9 H Mean Corpuscular Hemoglobin 30.1 Mean Corpuscular 29.3 L Hemoglobin Concent Red Cell Distribution Width 13.3 Platelet Count 390 Mean Platelet Volume 11.3 H Immature Granulocytes % 1.200 H Neutrophils % 66.2 Lymphocytes % 13.6 L Monocytes % 15.2 H Eosinophils % 3.0 Basophils % 0.8 Nucleated Red Blood Cells % 0.0 Immature Granulocytes # 0.060 H Neutrophils # 3.3 Lymphocytes # 0.7 L Monocytes # 0.8 Eosinophils # 0.2 Basophils # 0.0 Nucleated Red Blood Cells # 0.0 Sodium Level 138 Potassium Level 4.4 Chloride Level 108 Carbon Dioxide Level 30 Anion Gap 0 L Blood Urea Nitrogen 32 H Creatinine 1.00 Est Glomerular Filtrat Rate mL/min Glucose Level 136 Calcium Level 7.1 L Phosphorus Level 3.7 Magnesium Level 2.6 H Blood Gas Specimen Source Blood arterial Arterial Blood Date Drawn 03/15/2019 9:49:13 AM Arterial Blood pH 7.422 (Temp corrected) Arterial Blood pCO2 37.2 (Temp correct) Arterial Blood pO2 91.9 H (Temp corrected) Arterial Blood HCO3 23.7 Arterial Blood Base Excess -0.6 Arterial Blood 97.0 Oxygen Saturation Jewel Test ACCEPTAB Arterial Blood Gas Right Radial Puncture Site Arterial 0 Blood Carboxyhemoglobin Arterial Blood 0.3 Methemoglobin Blood Gas A-a O2 150.5 H Differential Oxyhemoglobin Percent 96.7 Blood Gas Temperature 37.0 Blood Gas Actual 18 Respiration Rate Blood Gas Modality VENT - CPAP FiO2 40.0 Blood Gas Low PEEP Setting 5.0 Blood Gas Pressure Support 10 Blood Gas Notified Whom TM Blood Gas Notified Time 03/15/2019 10:07:55 AM Vancomycin Level Trough 14.5 Medications Current Medications Dextrose (D50w Syringe) ONCE PRN IV DECREASED GLUCOSE Last administered on 03/02/19at 19:05; Admin Dose 50 ML; Start 03/02/19 at 14:00 Ondansetron HCl (Zofran Inj) 4 mg Q6H PRN IV NAUSEA AND/OR VOMITING; Start 03/02/19 at 14:00 Acetaminophen (Tylenol Liquid) 650 mg Q6H PRN PO PAIN LEVEL 1-3 OR FEVER Last administered on 03/14/19at 13:29; Admin Dose 650 MG; Start 03/02/19 at 14:00 Morphine Sulfate (morphine) 2 mg Q4H PRN IV PAIN LEVEL 7-10 Last administered on 03/12/19at 09:07; Admin Dose 2 MG; Start 03/02/19 at 14:00 Clonidine (Catapres) 0.2 mg Q6H PRN PO ELEVATED BLOOD PRESSURE; Start 03/02/19 at 18:00 Hydralazine HCl (Apresoline) 10 mg Q4H PRN IV SBP more than 150 mm hg ; Start 03/02/19 at 23:38 Fentanyl 100 ml @ 2.5 mls/hr TITRATE IV Last administered on 03/15/19at 07:07; Admin Dose 5 MLS/HR; Start 03/03/19 at 09:30 Norepinephrine 250 ml @ 1.875 mls/ hr TITRATE IV Last administered on 03/14/19at 05:42; Admin Dose 1.875 MLS/HR; Start 03/03/19 at 14:00 IV Flush (NS 10 ml) 10 ml Q8 PRN IV IV PROTOCOL; Start 03/03/19 at 15:30 Miscellaneous Information 1 ea NOTE XX ; Start 03/03/19 at 15:30 Glucose (Glutose) 15 gm Q15M PRN PO DECREASED GLUCOSE; Start 03/03/19 at 15:30 Glucose (Glutose) 22.5 gm Q15M PRN PO DECREASED GLUCOSE; Start 03/03/19 at 1 5:30 Dextrose (D50w Syringe) 25 ml Q15M PRN IV DECREASED GLUCOSE; Start 03/03/19 at 15:30 Dextrose (D50w Syringe) 50 ml Q15M PRN IV DECREASED GLUCOSE; Start 03/03/19 at 15:30 Glucagon (Glucagen) 1 mg Q15M PRN IM DECREASED GLUCOSE; Start 03/03/19 at 15:30 Glucose (Glutose) 15 gm Q15M PRN BUCCAL DECREASED GLUCOSE; Start 03/03/19 at 15:30 Vancomycin HCl (Vanco Iv Per Pharmacy) VANCOMYCIN PER PHARMACY PER PROTOCOL XX ; Start 03/03/19 at 17:30 Fluconazole (Diflucan) 100 mg DAILY PO Last administered on 03/15/19at 08:32; Admin Dose 100 MG; Start 03/04/19 at 13:00 Meropenem/Sodium Chloride 50 ml @ 100 mls/hr Q12 IVPB Last administered on 03/15/19at 08:33; Admin Dose 100 MLS/HR; Start 03/08/19 at 12:30 Vancomycin HCl 250 ml @ 125 mls/hr Q24H IVPB Last administered on 03/15/19at 11:01; Admin Dose 125 MLS/HR; Start 03/09/19 at 11:00 Famotidine (Pepcid) 20 mg DAILY GTB Last administered on 03/15/19at 08:32; Admin Dose 20 MG; Start 03/10/19 at 09:00 Scopolamine (Transderm-Scop) 1 patch Q72H TRANSDERM Last administered on 03/13/19at 14:39; Admin Dose 1 PATCH; Start 03/10/19 at 15:30 Midodrine (Proamatine) 10 mg Q8 NGT Last administered on 03/15/19at 05:16; Admin Dose 10 MG; Start 03/14/19 at 14:00 Lorazepam (Ativan) 1 mg Q6H PRN IV AGITATION Last administered on 03/14/19at 21:37; Admin Dose 1 MG; Start 03/14/19 at 21:30 Assessment/Plan Hospital Course (Demo Recall) IMP: 1. Acute Respiratory Failure 2. Sepsis/shock status post septic shock 3. Acute possibly on chronic kidney disease. 4. Congestive heart failure. 5. Anemia 6. Thrombocytopenia 7. History of Parkinson's disease with chronic encephalopathy RECS: 1. Vent support. Tolerating CPAP trial this morning and tracheostomy and long- term mechanical ventilation are not consistent with patient's wishes. We will therefore extubate. 2. Abx per ID 3. Follow cultures 4. Continue tube feeding as tolerated 5. Hydration as tolerated Extubate patient if declines post extubation will require hospice evaluation. Chandan SHEARER aware. Critical care time 40 minutes. DAVID ROWELL MD, [facility] Mar 15, 2019 11:57
[2019-03-15] MEDS: morphine 2 MG INJ IV PRN ×2 (12:59→18:47)
[2019-03-15] MEDS ORDERED: RACEPINEPHRINE 2.25%(NEB) 0.5 ML AMP HHN ONE (13:30)
--- NOTE | 2019-03-15 14:33 | CONS ---
Assessment/Plan Assessment/Plan Hospital Course (Demo Recall) Patient was extubated she is on facemask in no distress afebrile with a T-max of 100 WBC 5 H&H 6.3 and 21.5 platelets 390 neutrophils 66.2 BUN 32 creatinine 1 Antimicrobials: IV vancomycin, meropenem, fluconazole Microbiology: Endotracheal aspirate grew MRSA urine culture grew Klebsiella Can dida albicans. Repeat blood cultures negative urine culture growing yeast INDWELLINGS: Cabrera catheter, PICC line. DIAGNOSTICS: Renal ultrasound revealed no evidence of hydronephrosis. A chest x-ray revealed atelectatic changes with superimposed infectious/inflammatory process in the right lung. Gallbladder ultrasound on admission revealed dilated pancreatic duct measuring up to 4 mm, mass in the region of pancreatic head cannot be excluded. Recommendation of CT with contrast or MRCP, no evidence of gallstones. ALLERGIES: NONE. PHYSICAL EXAMINATION: GENERAL: This is a chronically ill-appearing, obese elderly woman who is in no distress. Head atraumatic, normocephalic. NECK: Obese. CHEST: Rise symmetrical. Breath sounds diminished to bases. HEART: S1, S2. ABDOMEN: Obese, soft, bowel tones present. EXTREMITIES: Bilateral lower extremities edema, erythema, dsg intact. ASSESSMENT: 1. Severe sepsis with shock 2. Ongoing fevers 2. Bilateral lower extremity cellulitis, acute on chronic 2. Urinary tract infection. 3. Acute hypoxemic respiratory failure, poss aspiration. 4. Acute on chronic kidney disease. 5. Congestive heart failure. 6. Morbid obesity. 7. MRSA nares colonization. 8. Acute encephalopathy 9. Diarrhea==> neg C. difficile 10. Dilated pancreatic duct measuring up to 4 mm 11. DNR PLAN: Stable post extubation, continue antibiotics, aspiration precautions Discussed with RN Consultation Date/Type/Reason Admit Date/Time Mar 02, 2019 at 13:39 Initial Consult Date 03/03/19 Type of Consult id Requesting Provider: LISA MATA MD Date/Time of Note DATE: 03/15/19 TIME: 14:32 Exam/Review of Systems Exam Vitals Vital Signs Date Temp Pulse Resp B/P (MAP) Pulse Ox O2 O2 Flow FiO2 Time Delivery Rate 03/15/19 80 18 108/59 99 Mask 8.0 13:00 (75) 03/15/19 100.0 12:00 03/15/19 40 08:00 Intake and Output 8/11/19 8/11/19 8/12/19 1515:00 23:00 07:00 IntakeIntake Total 1336.20 ml 757.975 ml 940 ml OutputOutput Total 290 ml 225 ml 185 ml BalanceBalance 1046.20 ml 532.975 ml 755 ml Results Result Diagram: 03/15/19 0511 03/15/19 0511 Results 24hrs Laboratory Tests Test 03/15/19 05:11 03/15/19 10:00 03/15/19 10:03 White Blood Count 5.0 # Red Blood Count 2.09 L Hemoglobin 6.3 *L Hematocrit 21.5 L Mean Corpuscular Volume 102.9 H Mean Corpuscular Hemoglobin 30.1 Mean Corpuscular 29.3 L Hemoglobin Concent Red Cell Distribution Width 13.3 Platelet Count 390 Mean Platelet Volume 11.3 H Immature Granulocytes % 1.200 H Neutrophils % 66.2 Lymphocytes % 13.6 L Monocytes % 15.2 H Eosinophils % 3.0 Basophils % 0.8 Nucleated Red Blood Cells % 0.0 Immature Granulocytes # 0.060 H Neutrophils # 3.3 Lymphocytes # 0.7 L Monocytes # 0.8 Eosinophils # 0.2 Basophils # 0.0 Nucleated Red Blood Cells # 0.0 Sodium Level 138 Potassium Level 4.4 Chloride Level 108 Carbon Dioxide Level 30 Anion Gap 0 L Blood Urea Nitrogen 32 H Creatinine 1.00 Est Glomerular Filtrat Rate mL/min Glucose Level 136 Calcium Level 7.1 L Phosphorus Level 3.7 Magnesium Level 2.6 H Blood Gas Specimen Source Blood arterial Arterial Blood Date Drawn 03/15/2019 9:49:13 AM Arterial Blood pH 7.422 (Temp corrected) Arterial Blood pCO2 37.2 (Temp correct) Arterial Blood pO2 91.9 H (Temp corrected) Arterial Blood HCO3 23.7 Arterial Blood Base Excess -0.6 Arterial Blood 97.0 Oxygen Saturation Jewel Test ACCEPTAB Arterial Blood Gas Right Radial Puncture Site Arterial 0 Blood Carboxyhemoglobin Arterial Blood 0.3 Methemoglobin Blood Gas A-a O2 150.5 H Differential Oxyhemoglobin Percent 96.7 Blood Gas Temperature 37.0 Blood Gas Actual 18 Respiration Rate Blood Gas Modality VENT - CPAP FiO2 40.0 Blood Gas Low PEEP Setting 5.0 Blood Gas Pressure Support 10 Blood Gas Notified Whom TM Blood Gas Notified Time 03/15/2019 10:07:55 AM Vancomycin Level Trough 14.5 Medications Medication Current Medications Dextrose (D50w Syringe) ONCE PRN IV DECREASED GLUCOSE Last administered on 03/02/19at 19:05; Admin Dose 50 ML; Start 03/02/19 at 14:00 Ondansetron HCl (Zofran Inj) 4 mg Q6H PRN IV NAUSEA AND/OR VOMITING; Start 03/02/19 at 14:00 Acetaminophen (Tylenol Liquid) 650 mg Q6H PRN PO PAIN LEVEL 1-3 OR FEVER Last administered on 03/14/19at 13:29; Admin Dose 650 MG; Start 03/02/19 at 14:00 Morphine Sulfate (morphine) 2 mg Q4H PRN IV PAIN LEVEL 7-10 Last administered on 03/15/19at 12:59; Admin Dose 2 MG; Start 03/02/19 at 14:00 Clonidine (Catapres) 0.2 mg Q6H PRN PO ELEVATED BLOOD PRESSURE; Start 03/02/19 at 18:00 Hydralazine HCl (Apresoline) 10 mg Q4H PRN IV SBP more than 150 mm hg ; Start 03/02/19 at 23:38 Fentanyl 100 ml @ 2.5 mls/hr TITRATE IV Last administered on 03/15/19at 07:07; Admin Dose 5 MLS/HR; Start 03/03/19 at 09:30 Norepinephrine 250 ml @ 1.875 mls/ hr TITRATE IV Last administered on 03/14/19at 05:42; Admin Dose 1.875 MLS/HR; Start 03/03/19 at 14:00 IV Flush (NS 10 ml) 10 ml Q8 PRN IV IV PROTOCOL; Start 03/03/19 at 15:30 Miscellaneous Information 1 ea NOTE XX ; Start 03/03/19 at 15:30 Glucose (Glutose) 15 gm Q15M PRN PO DECREASED GLUCOSE; Start 03/03/19 at 15:30 Glucose (Glutose) 22.5 gm Q15M PRN PO DECREASED GLUCOSE; Start 03/03/19 at 15:30 Dextrose (D50w Syringe) 25 ml Q15M PRN IV DECREASED GLUCOSE; Start 03/03/19 at 15:30 Dextrose (D50w Syringe) 50 ml Q15M PRN IV DECREASED GLUCOSE; Start 03/03/19 at 15:30 Glucagon (Glucagen) 1 mg Q15M PRN IM DECREASED GLUCOSE; Start 03/03/19 at 15:30 Glucose (Glutose) 15 gm Q15M PRN BUCCAL DECREASED GLUCOSE; Start 03/03/19 at 15:30 Vancomycin HCl (Vanco Iv Per Pharmacy) VANCOMYCIN PER PHARMACY PER PROTOCOL XX ; Start 03/03/19 at 17:30 Fluconazole (Diflucan) 100 mg DAILY PO Last administered on 03/15/19 08:32; Admin Dose 100 MG; Start 03/04/19 at 13:00 Meropenem/Sodium Chloride 50 ml @ 100 mls/hr Q12 IVPB Last administered on 03/15/19 08:33; Admin Dose 100 MLS/HR; Start 03/08/19 at 12:30 Vancomycin HCl 250 ml @ 125 mls/hr Q24H IVPB Last administered on 03/15/19 11:01; Admin Dose 125 MLS/HR; Start 03/09/19 at 11:00 Famotidine (Pepcid) 20 mg DAILY GTB Last administered on 03/15/19at 08:32; Admin Dose 20 MG; Start 03/10/19 at 09:00 Scopolamine (Transderm-Scop) 1 patch Q72H TRANSDERM Last administered on 03/13/19at 14:39; Admin Dose 1 PATCH; Start 03/10/19 at 15:30 Midodrine (Proamatine) 10 mg Q8 NGT Last administered on 03/15/19at 05:16; Admin Dose 10 MG; Start 03/14/19 at 14:00 Lorazepam (Ativan) 1 mg Q6H PRN IV AGITATION Last administered on 03/14/19at 21:37; Admin Dose 1 MG; Start 03/14/19 at 21:30 ANITA VIERA NP Mar 15, 2019 14:33
[2019-03-15] MEDS ORDERED: morphine 2 MG INJ IV PRN (19:30)
[2019-03-15] MEDS: LORAZEPAM 2 MG INJ IV PRN (19:52)
[2019-03-15] MEDS ORDERED: OCULAR LUBRICANT 3.5 GM OPH OINT BOTH EYES ONE (20:00)
[2019-03-15] MEDS ORDERED: morphine (DRIP) 100 MG/100 ML 100 ML IV SCH (21:30)
[2019-03-15] MEDS ORDERED: LORAZEPAM 2 MG INJ IV PRN (21:30)
[2019-03-16] VITALS (13 sets, daily range): BP systolic 47–98; BP diastolic 28–79; PULSE 27–78; RESP 4–26
--- NOTE | 2019-03-16 08:24 | CONS ---
Assessment/Plan Assessment/Plan Assessment/Plan (Daily) Acute renal insufficiency Altered mental status Acute respiratory failure requiring intubation Bilateral lower extremity cellulitis Sepsis shock Thrombocytopenia anemia History of Parkinson's disease History of inability to do ADLs History of failure to thrive No change in patients overall cognitive status. Waiting for daughter to arrive back in town to discuss level of care. Consultation Date/Type/Reason Admit Date/Time Mar 02, 2019 at 13:39 Initial Consult Date 03/03/19 Requesting Provider: LISA MATA MD Date/Time of Note DATE: 03/16/19 TIME: 08:23 Exam/Review of Systems Exam Vitals Vital Signs Date Temp Pulse Resp B/P (MAP) Pulse Ox O2 O2 Flow FiO2 Time Delivery Rate 03/16/19 57 10 64/31 (42) 7 Nasal 06:00 Cannula 03/16/19 3.0 02:34 03/15/19 99.2 16:00 03/15/19 40 08:00 Intake and Output 03/15/19 03/15/19 03/16/19 1515:00 23:00 07:00 IntakeIntake Total 550 ml 153 ml 31 ml OutputOutput Total 330 ml 160 ml 70 ml BalanceBalance 220 ml -7 ml -39 ml Results Result Diagram: 03/15/19 0511 03/15/19 0511 Results 24hrs Laboratory Tests Test 03/15/19 10:00 03/15/19 10:03 03/16/19 05:07 Blood Gas Specimen Blood arterial Source Arterial Blood Date 03/15/2019 9:49:13 AM Drawn Arterial Blood pH 7.422 (Temp corrected) Arterial Blood pCO2 37.2 (Temp correct) Arterial Blood pO2 91.9 H (Temp corrected) Arterial Blood HCO3 23.7 Arterial Blood Base -0.6 Excess Arterial Blood 97.0 Oxygen Saturation Jewel Test ACCEPTAB Arterial Blood Gas Right Radial Puncture Site Arterial 0 Blood Carboxyhemoglobin Arterial Blood 0.3 Methemoglobin Blood Gas A-a O2 150.5 H Differential Oxyhemoglobin Percent 96.7 Blood Gas Temperature 37.0 Blood Gas Actual 18 Respiration Rate Blood Gas Modality VENT - CPAP FiO2 40.0 Blood Gas Low PEEP 5.0 Setting Blood Gas Pressure 10 Support Blood Gas Notified Whom TM Blood Gas Notified 03/15/2019 10:07:55 AM Time Vancomycin Level Trough 14.5 Lab Scanned Report BLOOD TRANSFUSION Medications Medication Current Medications Dextrose (D50w Syringe) ONCE PRN IV DECREASED GLUCOSE Last administered on 03/02/19at 19:05; Admin Dose 50 ML; Start 03/02/19 at 14:00 Ondansetron HCl (Zofran Inj) 4 mg Q6H PRN IV NAUSEA AND/OR VOMITING; Start 03/02/19 at 14:00 Acetaminophen (Tylenol Liquid) 650 mg Q6H PRN PO PAIN LEVEL 1-3 OR FEVER Last administered on 03/14/19at 13:29; Admin Dose 650 MG; Start 03/02/19 at 14:00 Clonidine (Catapres) 0.2 mg Q6H PRN PO ELEVATED BLOOD PRESSURE; Start 03/02/19 at 18:00 Hydralazine HCl (Apresoline) 10 mg Q4H PRN IV SBP more than 150 mm hg ; Start 03/02/19 at 23:38 IV Flush (NS 10 ml) 10 ml Q8 PRN IV IV PROTOCOL; Start 03/03/19 at 15:30 Miscellaneous Information 1 ea NOTE XX ; Start 03/03/19 at 15:30 Dextrose (D50w Syringe) 25 ml Q15M PRN IV DECREASED GLUCOSE; Start 03/03/19 at 15:30 Dextrose (D50w Syringe) 50 ml Q15M PRN IV DECREASED GLUCOSE; Start 03/03/19 at 15:30 Vancomycin HCl (Vanco Iv Per Pharmacy) VANCOMYCIN PER PHARMACY PER PROTOCOL XX ; Start 03/03/19 at 17:30 Scopolamine (Transderm-Scop) 1 patch Q72H TRANSDERM Last administered on 03/13/19at 14:39; Admin Dose 1 PATCH; Start 03/10/19 at 15:30 Lorazepam (Ativan) 1 mg Q2H PRN IV AGITATION; Start 03/15/19 at 21:30 Morphine Sulfate/ Sodium Chloride 100 ml @ 1 mls/hr TITRATE IV Last administered on 03/15/19at 21:31; Admin Dose 1 MLS/HR; Start 03/15/19 at 21:30 YARON BARNHART Mar 16, 2019 08:24
--- NOTE | 2019-03-16 10:57 | CONS ---
Consult Date/Type/Reason Admit Date/Time Mar 02, 2019 at 13:39 Initial Consult Date 03/03/19 Type of Consult Pulmonary Requesting Provider: LISA MATA MD Date/Time of Note DATE: 03/16/19 TIME: 10:56 Subjective Extubated yesterday. Stable for a few hours and then began having respiratory distress. Now minimally responsive requiring transition to comfort measures. Objective Vital Signs Date Temp Pulse Resp B/P (MAP) Pulse Ox O2 O2 Flow FiO2 Time Delivery Rate 03/16/19 73 17 65/31 (42) 50 Nasal 09:00 Cannula 03/16/19 3.0 08:00 03/15/19 99.2 16:00 03/15/19 40 08:00 Intake and Output 03/15/19 03/15/19 03/16/19 1515:00 23:00 07:00 IntakeIntake Total 550 ml 153 ml 36 ml OutputOutput Total 330 ml 160 ml 70 ml BalanceBalance 220 ml -7 ml -34 ml Exam GENERAL: Chronically ill-appearing lady nasal cannula oxygen VITAL SIGNS: per chart NECK: Supple. No JVD or lymphadenopathy. CARDIAC EXAM: S1, S2. No added sounds or murmurs. CHEST: Diminished air entry bilaterally ABDOMEN: Soft, nontender. No guarding or rebound. Mild distention EXTREMITIES: No cyanosis, clubbing edema +2 NEUROLOGIC: Generalized weakness. Significant contractures Vent Setting Ventilator Support Mode: CPAP Fraction of Inspired Oxygen pe: 40 Positive End Expiratory Pressu: 5.0 Results/Medications Result Diagram: 03/15/19 0511 03/15/19 0511 Results 24 hrs Laboratory Tests Test 03/16/19 05:07 Lab Scanned Report BLOOD TRANSFUSION Medications Current Medications Dextrose (D50w Syringe) ONCE PRN IV DECREASED GLUCOSE Last administered on 03/02/19at 19:05; Admin Dose 50 ML; Start 03/02/19 at 14:00 Ondansetron HCl (Zofran Inj) 4 mg Q6H PRN IV NAUSEA AND/OR VOMITING; Start 03/02/19 at 14:00 Acetaminophen (Tylenol Liquid) 650 mg Q6H PRN PO PAIN LEVEL 1-3 OR FEVER Last administered on 03/14/19at 13:29; Admin Dose 650 MG; Start 03/02/19 at 14:00 Clonidine (Catapres) 0.2 mg Q6H PRN PO ELEVATED BLOOD PRESSURE; Start 03/02/19 at 18:00 Hydralazine HCl (Apresoline) 10 mg Q4H PRN IV SBP more than 150 mm hg ; Start 03/02/19 at 23:38 IV Flush (NS 10 ml) 10 ml Q8 PRN IV IV PROTOCOL; Start 03/03/19 at 15:30 Miscellaneous Information 1 ea NOTE XX ; Start 03/03/19 at 15:30 Dextrose (D50w Syringe) 25 ml Q15M PRN IV DECREASED GLUCOSE; Start 03/03/19 at 15:30 Dextrose (D50w Syringe) 50 ml Q15M PRN IV DECREASED GLUCOSE; Start 03/03/19 at 15:30 Vancomycin HCl (Vanco Iv Per Pharmacy) VANCOMYCIN PER PHARMACY PER PROTOCOL XX ; Start 03/03/19 at 17:30 Scopolamine (Transderm-Scop) 1 patch Q72H TRANSDERM Last administered on 03/13/19at 14:39; Admin Dose 1 PATCH; Start 03/10/19 at 15:30 Lorazepam (Ativan) 1 mg Q2H PRN IV AGITATION; Start 03/15/19 at 21:30 Morphine Sulfate/ Sodium Chloride 100 ml @ 1 mls/hr TITRATE IV Last administered on 03/15/19at 21:31; Admin Dose 1 MLS/HR; Start 03/15/19 at 21:30 Assessment/Plan Hospital Course (Demo Recall) IMP: 1. Acute Respiratory Failure 2. Sepsis/shock status post septic shock 3. Acute possibly on chronic kidney disease. 4. Congestive heart failure. 5. Anemia 6. Thrombocytopenia 7. History of Parkinson's disease with chronic encephalopathy RECS: Continue comfort measures [facility] to [facility] Cox [facility] Mar 16, 2019 10:57
--- NOTE | 2019-03-16 11:46 | PN ---
Date/Time of Note Date/Time of Note DATE: 03/16/19 TIME: 11:44 Assessment/Plan VTE Prophylaxis Risk score (from [facility] [place]0 risk: 11 SCD applied (from [facility] [place]): No SCD contraindicated: other Pharmacological prophylaxis: NA/contraindicated Pharm contraindication: other Lines/Catheters IV Catheter Type (from [facility]): PICC Line Central line still needed: Yes Urinary Cath still in place: Yes Reason Cath still needed: urinary retention Assessment/Plan Hospital Course Patient is comfort measures only, on morphine drip looks comfortable. Assessment/Plan -Acute respiratory failure requiring intubation and ventilatory support, extubated yesterday. -Status post septic shock, s/p antibiotics. -Bilateral lower extremity cellulitis -Anemia -Acute kidney injury on CKD III -Acute encephalopathy -COPD -Diastolic congestive heart failure with preserved ejection fraction -Hypothyroidism -Obesity -History of COPD -History of Parkinson's disease. -Comfort care Further recommendations based on clinical course. Plan of care discussed with Dr. Bonilla. Result Diagram: 03/15/1951003/15/1911 Results 24hrs Laboratory Tests Test 03/16/19 05:07 Lab Scanned Report BLOOD TRANSFUSION Exam/Review of Systems Exam Vitals Vital Signs Date Temp Pulse Resp B/P (MAP) Pulse Ox O2 O2 Flow FiO2 Time Delivery Rate 03/16/19 73 17 65/31 (42) 50 Nasal 09:00 Cannula 03/16/19 3.0 08:00 03/15/19 99.2 16:00 03/15/19 40 08:00 Intake and Output 03/15/19 03/15/19 03/16/19 1515:00 23:00 07:00 IntakeIntake Total 550 ml 153 ml 36 ml OutputOutput Total 330 ml 160 ml 70 ml BalanceBalance 220 ml -7 ml -34 ml Exam Constitutional: frail Psych: confusion Neck: supple Respiratory: diminished breath sounds Cardiovascular: regular rate and rhythm Gastrointestinal: soft Extremities: normal pulses Skin: other (Multiple wounds) Results Results 24hrs Laboratory Tests Test 03/16/19 05:07 Lab Scanned Report BLOOD TRANSFUSION Medications Medication Current Medications Dextrose (D50w Syringe) ONCE PRN IV DECREASED GLUCOSE Last administered on 03/02/19at 19:05; Admin Dose 50 ML; Start 03/02/19 at 14:00 Ondansetron HCl (Zofran Inj) 4 mg Q6H PRN IV NAUSEA AND/OR VOMITING; Start 03/02/19 at 14:00 Acetaminophen (Tylenol Liquid) 650 mg Q6H PRN PO PAIN LEVEL 1-3 OR FEVER Last administered on 03/14/19at 13:29; Admin Dose 650 MG; Start 03/02/19 at 14:00 Clonidine (Catapres) 0.2 mg Q6H PRN PO ELEVATED BLOOD PRESSURE; Start 03/02/19 at 18:00 Hydralazine HCl (Apresoline) 10 mg Q4H PRN IV SBP more than 150 mm hg ; Start 03/02/19 at 23:38 IV Flush (NS 10 ml) 10 ml Q8 PRN IV IV PROTOCOL; Start 03/03/19 at 15:30 Miscellaneous Information 1 ea NOTE XX ; Start 03/03/19 at 15:30 Dextrose (D50w Syringe) 25 ml Q15M PRN IV DECREASED GLUCOSE; Start 03/03/19 at 15:30 Dextrose (D50w Syringe) 50 ml Q15M PRN IV DECREASED GLUCOSE; Start 03/03/19 at 15:30 Vancomycin HCl (Vanco Iv Per Pharmacy) VANCOMYCIN PER PHARMACY PER PROTOCOL XX ; Start 03/03/19 at 17:30 Scopolamine (Transderm-Scop) 1 patch Q72H TRANSDERM Last administered on 03/13/19at 14:39; Admin Dose 1 PATCH; Start 03/10/19 at 15:30 Lorazepam (Ativan) 1 mg Q2H PRN IV AGITATION; Start 03/15/19 at 21:30 Morphine Sulfate/ Sodium Chloride 100 ml @ 1 mls/hr TITRATE IV Last administered on 03/15/19at 21:31; Admin Dose 1 MLS/HR; Start 03/15/19 at 21:30 ABI GARCIA Mar 16, 2019 11:46
--- NOTE | 2019-03-17 21:11 | DES ---
Date/Time of Note Date/Time of Note DATE: 03/17/19 TIME: 21:06 Discharge/ Summary Admission/Discharge Info Admit Date/Time Mar 02, 2019 at 13:39 Date/Time Mar 16, 2019 at 14:39 Final Diagnosis -Acute respiratory failure requiring intubation and ventilatory support, extubated yesterday. -Status post septic shock, s/p antibiotics. -Bilateral lower extremity cellulitis -Anemia -Acute kidney injury on CKD III -Acute encephalopathy -COPD -Diastolic congestive heart failure with preserved ejection fraction -Hypothyroidism -Obesity -History of COPD -History of Parkinson's disease. -Comfort care D/W Dr. Bonilla. Preliminary Cause of Respiratory failure Admit History Patient with history of chronic renal insufficiency, COPD, hypothyroidism, and Parkinson's was brought by family into the hospital for decreased mentation and failure to thrive. Patient was found to be hyperkalemic and in worsening renal status. Patient was treated for hyperkalemia in the emergency room and then admitted to the ICU for continued care. Overnight, the patient became more unresponsive and she was intubated for airway protection. Hospital Course Patient is comfort measures only, on morphine drip looks comfortable. Assessment/Plan -Acute respiratory failure requiring intubation and ventilatory support, extubated yesterday. -Status post septic shock, s/p antibiotics. -Bilateral lower extremity cellulitis -Anemia -Acute kidney injury on CKD III -Acute encephalopathy -COPD -Diastolic congestive heart failure with preserved ejection fraction -Hypothyroidism -Obesity -History of COPD -History of Parkinson's disease. -Comfort care Further recommendations based on clinical course. Plan of care discussed with Dr. Bonilla. ABI GARCIA Mar 17, 2019 21:11
== END 2019-03-16 14:39 | disposition expired | DRG 870 ==
LOC: E/R 11:55 → ICU 13:39
PROVIDERS: ADMIT Internal Medicine; ATTEND Internal Medicine
PROC: 5A1955Z Respiratory Ventilation, Greater than 96 Consecutive Hours (ICD-10-PCS; principal; 2019-03-03)
PROC: 0BH17EZ Insertion of Endotracheal Airway into Trachea, Via Natural or Artificial Opening (ICD-10-PCS; 2019-03-03)
PROC: 02HV33Z Insertion of Infusion Device into Superior Vena Cava, Percutaneous Approach (ICD-10-PCS; 2019-03-03)
PROC: 30233N1 Transfusion of Nonautologous Red Blood Cells into Peripheral Vein, Percutaneous Approach (ICD-10-PCS; 2019-03-15)
DX: A41.9 Sepsis, unspecified organism (principal); N17.0 Acute kidney failure with tubular necrosis; J18.9 Pneumonia, unspecified organism; J96.01 Acute respiratory failure with hypoxia; G93.41 Metabolic encephalopathy; R65.21 Severe sepsis with septic shock; E87.2 Acidosis; I13.0 Hypertensive heart and chronic kidney disease with heart failure and stage 1 through stage 4 chronic kidney disease, or unspecified chronic kidney disease; I50.32 Chronic diastolic (congestive) heart failure; N39.0 Urinary tract infection, site not specified; L03.116 Cellulitis of left lower limb; L03.115 Cellulitis of right lower limb; D63.8 Anemia in other chronic diseases classified elsewhere; D64.9 Anemia, unspecified; D69.6 Thrombocytopenia, unspecified; E87.5 Hyperkalemia; E03.9 Hypothyroidism, unspecified; E66.01 Morbid (severe) obesity due to excess calories; G20 Parkinson's disease; I73.9 Peripheral vascular disease, unspecified; J44.9 Chronic obstructive pulmonary disease, unspecified; K86.89 Other specified diseases of pancreas; N18.3 Chronic kidney disease, stage 3 (moderate); R00.1 Bradycardia, unspecified; R19.7 Diarrhea, unspecified; Z66 Do not resuscitate; Z51.5 Encounter for palliative care; Z22.322 Carrier or suspected carrier of Methicillin resistant Staphylococcus aureus; Z68.33 Body mass index [BMI] 33.0-33.9, adult
CPT/HCPCS: 31500; 36415; 36430; 36569; 36600; 71045; 74018; 76705; 76775; 76937; 80048; 80053; 80202; 81001; 81003; 82150; 82436; 82550; 82565; 82803; 82962; 83036; 83605; 83690; 83735; 83935; 84100; 84133; 84300; 84484; 84520; 84560; 85025; 85610; 85730; 86850; 86900; 86901; 86920; 87070; 87075; 87081; 87086; 93005; 94002; 94003; 94664; 94770; C9113; J0610; J0696; J1650; J1815; J1940; J2060; J2185; J2270; J2543; J3010; J3370; J3480; J7030; J7040; J7050; J7070; P9016; P9047